=== PATIENT | female | born 1960 | race Caucasian/White ===

== ENCOUNTER 2016-06-22 09:15 | Inpatient (IN) | payer OTHER ==
[~2016-06-22] VITALS: Ht 172.7 cm; Wt 72.0 kg
[~2016-06-22 09:15] MED LIST: BSP/10 PO; FRRS300 PO; INSDGI SC; INSU1INJ2 SC; MULT-506 PO; NRV/5 PO; OXYC1TAB3 PO; PRZ/40 PO; RISP-99 PO; VTMB12 PO
[2016-06-22 10:01] LABS: BASO % 0.6 %; BASO ABS # 0.02 K/uL (0-0.2); COMPLETE YES; EOS % 2.4 %; HEMATOCRIT 37.1 % (37-47); IG% 0.3 %; LYMPH % 33.2 %; LYMPH ABS # 1.13 K/uL (1.2-3.4); MEAN CELL VOLUME 87.7 fL (80-100); MEAN CORPUSCULAR HEMOGLOBIN 28.6 pg (25-34); MEAN CORPUSCULAR HGB CONC 32.6 g/dl (32-36); MEAN PLATELET VOLUME 9.1 fL (7.4-10.4); MONO % 6.8 %; NEUT % 56.7 %; PLATELET COUNT 186 K/uL (130-400); RED BLOOD COUNT 4.23 M/uL (4.2-5.4)
[2016-06-22 10:27] LABS: ALT/SGPT 14 U/L (12-78); AST/SGOT 15 U/L (15-37); BLOOD UREA NITROGEN 16 mg/dl (7-18); BUN/CREATININE RATIO 18.1 (10-20); CALCIUM 8.5 mg/dl (8.5-10.1); CARBON DIOXIDE 27 mmol/L (21-32); CHLORIDE 110 mmol/L (98-107); CREATININE 0.86 mg/dl (0.60-1.20); GLUCOSE 89 mg/dl (70-99); SODIUM 143 mmol/L (136-145)
[2016-06-22] MEDS ORDERED: FLUO20CA35 PO (10:32)
[2016-06-22] MEDS ORDERED: INSDGIPEN SC (10:32)
[2016-06-22 10:38] LABS: ALKALINE PHOSPHATASE 61 U/L (45-117)
[2016-06-22 11:04] LABS: URINE APPEARANCE CLEAR (CLEAR); URINE BILIRUBIN NEG (NEG); URINE COLOR YELLOW; URINE EPITHELIAL CELL AUTO >30 /lpf (0-5); URINE NITRITE NEG (NEG); URINE PH 6.5 (4.5-7.5); URINE SPECIFIC GRAVITY 1.012 (1.000-1.030); UROBILINOGEN NEG (NEG)
[2016-06-22 11:05] LABS: MANUAL MICROSCOPIC REQUIRED? NO; REVIEW REQ? NO
[2016-06-22 11:38] LABS: BENZODIAZEPINE, URINE NEG (NEG); COCAINE,URINE NEG (NEG); PHENCYCLIDINE, URINE NEG (NEG)
[2016-06-22] MEDS ORDERED: ALUMINUM/MAGNESIUM SUSP 30 ML UDC PO PRN (15:30)
[2016-06-22] MEDS ORDERED: hydrOXYzine HCL 25 MG TAB PO PRN (15:30)
[2016-06-22] MEDS ORDERED: MAGNESIUM HYDROXIDE SUSP 30 ML UDC PO PRN (15:30)
[2016-06-22] MEDS ORDERED: SODIUM CHLORIDE 0.65% NA SOLN 45 ML (OCEAN) PRN (15:30)
[2016-06-22] MEDS ORDERED: BISMUTH SUBSALICYLATE PER ML OMNICELL CHARGE PO PRN (15:30)
[2016-06-22] MEDS ORDERED: FRRS300 PO (15:34)
[2016-06-22] MEDS ORDERED: RISPERIDONE 0.5 MG TAB PO STA (15:39)
[2016-06-22] MEDS ORDERED: BusPIRone 15 MG TAB PO STA (15:39)
--- NOTE | 2016-06-22 15:48 | EMERGENCY ROOM VISIT NOTE ---
History Report prepared by Lynnette: Melo Tamayo Under the Supervision of: Dr. Roni Jacob D.O. First contact with patient: 09:22 Chief Complaint: MENTAL HEALTH EVALUATION Stated Complaint: PSYCH History of Present Illness The patient is a 55 year old female who presents to the Emergency Room with complaints of worsening suicidal thoughts for the past few months. The patient has a psychiatric history and is on medication. She also has a history of diabetes. The patient states that sometimes she takes Insulin and sometimes she will take it when she doesn't need to. She states this isn't necessarily an attempt to kill herself. The patient also thinks she has an eating disorder noting that when she is alone she binge eats. Pt denies hallucinations, headache , change in vision, fevers, chest pain, shortness of breath, nausea, vomiting, diarrhea, pain with urination, and melena. Source of History: patient Onset: past few months Position: other (global) Timing: worsening Associated Symptoms: No SOB, No chest pain, No diarrhea, No fevers, No headache, No melena, No nausea, No urinary symptoms, No vomiting Note: Other associated symptoms: suicidal ideation Denies: hallucinations Review of Systems See HPI for pertinent positives & negatives. A total of 10 systems reviewed and were otherwise negative. Past Medical & Surgical Medical Problems: (1) Amputated toe (2) Anxiety (3) Chronic anemia (4) Depression (5) Diabetes mellitus type 2 (6) Diabetic peripheral neuropathy associated with type 2 diabetes mellitus (7) history of venous thrombus and embolism (8) Loss of sensation (9) s/p left TKA (10) s/p transmet amputation right foot (11) Status post partial amputation of foot (12) Suicidal ideation Surgical Problems: (1) Amputee, above knee (2) History of carpal tunnel release of both wrists (3) History of total knee arthroplasty (4) S/P revision of total knee Family History Cancer Diabetes mellitus Heart disease Hypertension Kidney disease Kidney stones Social History Smoking Status: Never Smoker Alcohol Use: none Drug Use: none Marital Status: Housing Status: lives with family Occupation Status: disabled Current/Historical Medications Scheduled Amlodipine Besylate (Amlodipine Besylate), 5 MG PO DAILY Buspirone HCl (Buspirone HCl), 10 MG PO TID Cyanocobalamin (Vitamin B-12), 500 MCG PO DAILY Ferrous Sulfate (Ferrous Sulfate), 325 MG PO BID Fluoxetine (Prozac), 60 MG PO DAILY Insulin Aspart (Novolog Penfill), UNITS SC AC Insulin Glargine (Lantus Solostar), 8 UNITS SC QPM Multivitamin (Multivitamin), 1 TAB PO DAILY Risperidone (Risperidone), 0.5 MG PO BID Allergies Coded Allergies: Ceftriaxone (Verified Allergy, Intermediate, HIVES, Rash, 06/22/16) Penicillins (Verified Allergy, Intermediate, body gets red, 06/22/16) Vancomycin (Verified Adverse Reaction, Mild, RED MAN SYNDROME, 06/22/16) Physical Exam Vital Signs Date Time Temp Pulse Resp B/P Pulse Ox O2 Delivery O2 Flow Rate FiO2 06/22/16 14:46 77 16 117/77 97 06/22/16 13:00 77 16 111/73 97 06/22/16 11:38 74 16 116/84 97 06/22/16 09:18 36.7 84 18 120/74 100 Room Air Physical Exam GENERAL: sitting up in bed, disheveled, no acute distress, non-toxic. EYE EXAM: normal conjunctiva, PERRL and EOM's grossly intact OROPHARYNX: no exudate, no erythema, lips, buccal mucosa, and tongue normal and mucous membranes are moist NECK: supple, no nuchal rigidity, no adenopathy, non-tender LUNGS: Clear to auscultation. Normal chest wall mechanics HEART: no murmurs, S1 normal and S2 normal ABDOMEN: abdomen soft, non-tender, normo-active bowel sounds, no masses, no rebound or guarding. BACK: Back is symmetrical on inspection and there is no deformity, no midline tenderness, no CVA tenderness. SKIN: no rashes and no bruising UPPER EXTREMITIES: upper extremities are grossly normal. LOWER EXTREMITIES: Left lower extremity AKA NEURO EXAM: Normal sensorium, cranial nerves II-XII grossly intact, normal speech, no gross weakness of arms, no gross weakness of legs. Gross sensation intact. PSYCH: suicidal ideation with a plan Medical Decision & Procedures Laboratory Results 06/22/16 09:45 Red Blood Count 4.23, Mean Corpuscular Volume 87.7, Mean Corpuscular Hemoglobin 28.6, Mean Corpuscular Hemoglobin Concent 32.6, Mean Platelet Volume 9.1, Neutrophils (%) (Auto) 56.7, Lymphocytes (%) (Auto) 33.2, Monocytes (%) (Auto) 6.8, Eosinophils (%) (Auto) 2.4, Basophils (%) (Auto) 0.6, Neutrophils # (Auto) 1.93, Lymphocytes # (Auto) 1.13, Monocytes # (Auto) 0.23, Eosinophils # (Auto) 0.08, Basophils # (Auto) 0.02 06/22/16 09:45 Test 06/22/16 09:45 06/22/16 10:40 06/22/16 13:04 White Blood Count 3.40 K/uL (4.8-10.8) Red Blood Count 4.23 M/uL (4.2-5.4) Hemoglobin 12.1 g/dL (12.0-16.0) Hematocrit 37.1 % (37-47) Mean Corpuscular Volume 87.7 fL (80-100) Mean Corpuscular Hemoglobin 28.6 pg (25-34) Mean Corpuscular Hemoglobin Concent 32.6 g/dl (32-36) Platelet Count 186 K/uL (130-400) Mean Platelet Volume 9.1 fL (7.4-10.4) Neutrophils (%) (Auto) 56.7 % Lymphocytes (%) (Auto) 33.2 % Monocytes (%) (Auto) 6.8 % Eosinophils (%) (Auto) 2.4 % Basophils (%) (Auto) 0.6 % Neutrophils # (Auto) 1.93 K/uL (1.4-6.5) Lymphocytes # (Auto) 1.13 K/uL (1.2-3.4) Monocytes # (Auto) 0.23 K/uL (0.11-0.59) Eosinophils # (Auto) 0.08 K/uL (0-0.5) Basophils # (Auto) 0.02 K/uL (0-0.2) RDW Standard Deviation 42.1 fL (36.4-46.3) RDW Coefficient of Variation 13.1 % (11.5-14.5) Immature Granulocyte % (Auto) 0.3 % Immature Granulocyte # (Auto) 0.01 K/uL (0.00-0.02) Anion Gap 6.0 mmol/L (3-11) Est Creatinine Clear Calc Drug Dose 75.4 ml/min Estimated GFR () 88.8 Estimated GFR (Non- 76.6 BUN/Creatinine Ratio 18.1 (10-20) Calcium Level 8.5 mg/dl (8.5-10.1) Total Bilirubin 0.3 mg/dl (0.2-1) Direct Bilirubin < 0.1 mg/dl (0-0.2) Aspartate Amino Transf (AST/SGOT) 15 U/L (15-37) Alanine Aminotransferase (ALT/SGPT) 14 U/L (12-78) Alkaline Phosphatase 61 U/L (45-117) Total Protein 7.3 gm/dl (6.4-8.2) Albumin 3.5 gm/dl (3.4-5.0) Thyroid Stimulating Hormone (TSH) 1.000 uIu/ml (0.300-4.500) Ethyl Alcohol mg/dL < 3.0 mg/dl (0-3) Urine Color YELLOW Urine Appearance CLEAR (CLEAR) Urine pH 6.5 (4.5-7.5) Urine Specific [place] 1.012 (1.000-1.030) Urine Protein NEG (NEG) Urine Glucose (UA) NEG (NEG) Urine Ketones NEG (NEG) Urine Occult Blood NEG (NEG) Urine Nitrite NEG (NEG) Urine Bilirubin NEG (NEG) Urine Urobilinogen NEG (NEG) Urine Leukocyte Esterase SMALL (NEG) Urine WBC (Auto) 5-10 /hpf (0-5) Urine RBC (Auto) 0-4 /hpf (0-4) Urine Hyaline Casts (Auto) 1-5 /lpf (0-5) Urine Epithelial Cells (Auto) >30 /lpf (0-5) Urine Bacteria (Auto) NEG (NEG) Urine Opiates Screen NEG (NEG) Urine Methadone, Qualitative NEG (NEG) Urine Barbiturates NEG (NEG) Urine Phencyclidine (PCP) Level NEG (NEG) Ur Amphetamine/Methamphetamine NEG (NEG) MDMA (Ecstasy) Screen NEG (NEG) Urine Benzodiazepines Screen NEG (NEG) Urine Cocaine Metabolite NEG (NEG) Urine Marijuana (THC) NEG (NEG) Bedside Glucose 152 mg/dl (70-90) Date/Time Source Procedure Growth Status 06/22/16 12:30 Nasal MRSA DNA Surveillance Screen - Final Specimen Negative for MRSA by DNA Probe Complete Laboratory results per my review. ED Course ED COURSE: Vital signs were reviewed and showed normal The patients medical record was reviewed The above diagnostic studies were performed and reviewed. ED treatments and interventions as stated above. 0918: The patient was evaluated in room A6. A complete history and physical examination was performed. 1054: At this time, I reevaluated the patient and she was feeling fine. 1210: At this time, I reevaluated the patient and she was still doing okay. 1425: Upon reevaluation, the patient is resting comfortably.I discussed my findings with the patient and she understands and agrees with the treatment plan. At this time, she was accepted for placement at [address] [place] [address]. Based on the patients age, coexisting illnesses, exam and lab findings the decision to treat as an inpatient was made. The patient remained stable while under my care. The patient will be evaluated for further management. Medical Decision Differential diagnosis: Etiologies such as mood disorder, infection, hypoglycemia, electrolyte abnormalities, cardiac sources, intracerebral event, toxicologic, neurologic, as well as others were entertained. Patient is a 55-year-old female who presents the ER with suicidal ideations and a plan. She notes this has been worsening for the past several weeks. Labs including CBC, BMP, LFTs, bilirubin and TSH are unremarkable. Toxicology And alcohol were negative. UA was contaminated with multiple epithelial cells. 3 S. was consulted following evaluation by our psychiatric liaison. Patient was admitted with suicidal ideations. Impression Primary Impression: Mood disorder Additional Impression: Suicidal ideation Scribe Attestation The scribe's documentation has been prepared under my direction and personally reviewed by me in its entirety. I confirm that the note above accurately reflects all work, treatment, procedures, and medical decision making performed by me. Departure Information Dispostion [facility] ([address] [place] [address]) Prescriptions Ferrous Sulfate (Ferrous Sulfate) 325 Mg Tab 325 MG PO BID for 30 Days, #60 TAB Prov: Zenobia Pack MD 06/22/16 Referrals No Doctor, Assigned (PCP) Problem Qualifiers
[2016-06-22 16:12] VITALS: O2SAT 98
[2016-06-22] MEDS ORDERED: PHARMACY GLYCEMIC MGMT CONSULT PRN (16:24)
[2016-06-22 16:56] VITALS: BP 137/76; PULSE 88; TEMP 36.7; BMI 24.1
[2016-06-22] MEDS: INSULIN ASPART 100 UNITS/ML 3 ML PEN SC SCH ×2 (17:15→21:27)
--- NOTE | 2016-06-22 17:22 | Pharmacy Progress Note ---
Glycemic Control Intl Consult Date of Service Jun 22, 2016. Scope Glycemic Pharmacist consulted by Dr Pack on 06/22/16 for glycemic control and to write orders per [facility] inpatient glycemic control protocol Objective Weight (Kilograms): 72.000 Accuchecks BSG (last 24hrs): Test 06/22/16 09:33 06/22/16 09:45 06/22/16 13:04 06/22/16 16:38 Bedside Glucose 86 mg/dl (70-90) 152 mg/dl (70-90) 90 mg/dl (70-90) Random Glucose 89 mg/dl (70-99) Recent Pertinent Medications Outpatient Anti-diabetic Regimen: * Lantus 8 units sQ HS * NovoLog per scale AC * A1c = 5.1 % 08/28/15 (outdated) Assessment & Plan ASSESSMENT: * 55yo diabetic maintained on SQ basal bolus insulin regimen as an outpatient. Outpatient doses are quite low/small therefore are presuming that patient has adequate insulin sensitivity * A1c in chart is outdated - will re-order per protocol * BSG below inpatient targets on admission to ED with current outpatient dosing. Will empirically adjust orders to help prevent hypoglycemia. * Outpatient SSI with NovoLog is correctional insulin only --> proactive approach bolus insulin with both prandial and correctional components is recommended for inpatient use * Pt with minimal risk factors for insulin resistance and uses low insulin doses for presumed "tight" glycemic control --> will use weight/minimal stress based dosing and add BSG parameters to basal insulin * ADA & AACE recommend a goal blood sugar range 140-180 mg/dl for the majority of critically ill & non-critically ill patients. However, more stringent targets may be selected in individual cases. Will utilize more stringent goal of 1110-40mg/dl based on patient age & comorbidities. PLAN FOR INPATIENT GLYCEMIC CONTROL: * Basal insulin with Lantus SQ HS, dosing will be based on BSG * If BSG 120mg/dl or below --> administer 5 units of Lantus (reduced outpatient dosing to prevent hypo) * If BSG 121mg/dl or above --> Administer 8 units of Lantus (outpatient dosing ) * NovoLog per scale ACHS or Q6hrs while NPO * Goal Range: Low 110 mg/dL - High 140 mg/dL * Correction Factor: 40 mg/dL/unit * Nutritional / Prandial insulin per carb ratio of 1 unit per 13 grams CHO consumed * Please note that the plan above was derived based on current level of insulin resistance and hospital stress. These recommendations are appropriate for inpatient admission only. Plan of care upon discharge will need to be reassessed to avoid potential outpatient hypo/hyperglycemia. Thank you.
[2016-06-22] MEDS: FERROUS SULFATE 325 MG TAB PO SCH (18:05)
[2016-06-22] MEDS ORDERED: RISPERIDONE 0.5 MG TAB PO SCH (21:00)
[2016-06-22] MEDS ORDERED: FERROUS SULFATE 325 MG TAB PO SCH (21:00)
[2016-06-22] MEDS: INSULIN GLARGINE SOLOSTAR 100 UNITS/ML 3 ML PEN SC SCH (21:27)
[2016-06-22] MEDS ORDERED: PNEUMOCOCCAL POLYSACCHARIDES 25 MCG/0.5 ML VIAL/SYR IM. ONE (21:30)
[2016-06-22] MEDS ORDERED: PNEUMOCOCCAL ADMINISTRATION CHARGE ONE (21:30)
[2016-06-22] MEDS: hydrOXYzine HCL 25 MG TAB PO PRN (23:33)
[2016-06-23 06:55] VITALS: BP_SYST 104; BP_SYST 112; BP_DIAS 69; PULSE 72; PULSE 80; TEMP 36.9
[2016-06-23] MEDS: MULTIVITAMIN TAB PO SCH (07:40)
[2016-06-23] MEDS: AMLODIPINE BESYLATE 5 MG TAB PO SCH (07:40)
[2016-06-23] MEDS: FERROUS SULFATE 325 MG TAB PO SCH ×2 (07:40→17:34)
[2016-06-23] MEDS: RISPERIDONE 0.5 MG TAB PO SCH ×2 (07:41→14:35)
[2016-06-23] MEDS: CYANOCOBALAMIN 500 MCG TAB (VIT B-12) PO SCH (07:41)
[2016-06-23] MEDS: INSULIN ASPART 100 UNITS/ML 3 ML PEN SC SCH ×4 (08:00→21:07)
[2016-06-23] MEDS ORDERED: FLUOXETINE HCL 20 MG CAP PO SCH (09:00)
[2016-06-23 10:19] LABS: ESTIMATED AVERAGE GLUCOSE 85 mg/dl; HA1C FLAG Normal (Normal)
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
[2016-06-23] MEDS ORDERED: DULOXETINE HCL 20 MG CAP PO ONE (13:21)
--- NOTE | 2016-06-23 14:24 | Pharmacy Progress Note ---
Glycemic Control: Progress Nt Date of Service Jun 23, 2016. Scope Glycemic Pharmacist consulted by Dr Pack on 06/22 for glycemic control and to write orders per [facility] inpatient glycemic control protocol. Objective Accuchecks BSG (last 24hrs): Test 06/22/16 16:38 06/22/16 20:54 06/23/16 07:37 06/23/16 12:12 Bedside Glucose 90 mg/dl (70-90) 78 mg/dl (70-90) 88 mg/dl (70-90) 91 mg/dl (70-90) Laboratory Data (last 24hrs) Test 06/23/16 08:17 Hemoglobin A1c 4.6 % HbA1c: Test 06/23/16 08:17 Hemoglobin A1c 4.6 % (4.5-5.6) Recent Pertinent Medications Outpatient Anti-diabetic Regimen: * Lantus 8 units qPM * Novolog with meals per scale The patient is currently receiving: * Basal insulin: Lantus 5-8 units every 24 hours - based on BSG * Correctional Insulin: Novolog Correction per scale ACHS Goal Range: Low 110 mg/dL - High 140 mg/dL Correction Factor: 40 mg/dL/unit * Prandial insulin: Per carb ratio of 1 unit per 13 grams CHO consumed Risk Factors for Insulin Resistance: * Diet: type 1 diabetes - consuming ~70 gm CHO with each meal Assessment & Plan ASSESSMENT: From 06/22/16 note: * 55yo diabetic maintained on SQ basal bolus insulin regimen as an outpatient. Outpatient doses are quite low/small therefore are presuming that patient has adequate insulin sensitivity * A1c in chart is outdated - will re-order per protocol * BSG below inpatient targets on admission to ED with current outpatient dosing. Will empirically adjust orders to help prevent hypoglycemia. * Outpatient SSI with NovoLog is correctional insulin only --> proactive approach bolus insulin with both prandial and correctional components is recommended for inpatient use * Pt with minimal risk factors for insulin resistance and uses low insulin doses for presumed "tight" glycemic control --> will use weight/minimal stress based dosing and add BSG parameters to basal insulin * ADA & AACE recommend a goal blood sugar range 140-180 mg/dl for the majority of critically ill & non-critically ill patients. However, more stringent targets may be selected in individual cases. Will utilize more stringent goal of 1110-40mg/dl based on patient age & comorbidities. 06/23/16 * Ms. Sepulveda BSGs have all remained below 100 mg/dL, with no lows * Will plan to make further adjustments to insulin regimen since BSGs have remained on the low side PLAN FOR INPATIENT GLYCEMIC CONTROL: * Decrease Lantus to 4 or 8 units qHS (depending on BSG) * Continue Novolog ACHS * Goal 110-140 * CF 40 * LOOSEN CR to 20 * Please note that the plan above was derived based on current level of insulin resistance and hospital stress. These recommendations are appropriate for inpatient admission only. Plan of care upon discharge will need to be reassessed to avoid potential outpatient hypo/hyperglycemia. Thank you.
[2016-06-23] MEDS: INSULIN GLARGINE SOLOSTAR 100 UNITS/ML 3 ML PEN SC SCH (21:10)
[2016-06-23] MEDS: hydrOXYzine HCL 25 MG TAB PO PRN ×2 (21:14→22:10)
[2016-06-24 06:57] VITALS: BP_SYST 106; BP_SYST 86; BP_DIAS 55; BP_DIAS 68; PULSE 77; PULSE 84; TEMP 36.6
[2016-06-24] MEDS: MULTIVITAMIN TAB PO SCH (07:37)
[2016-06-24] MEDS: CYANOCOBALAMIN 500 MCG TAB (VIT B-12) PO SCH (07:37)
[2016-06-24] MEDS: FERROUS SULFATE 325 MG TAB PO SCH ×2 (07:37→17:45)
[2016-06-24] MEDS: AMLODIPINE BESYLATE 5 MG TAB PO SCH (07:37)
[2016-06-24] MEDS: RISPERIDONE 0.5 MG TAB PO SCH ×2 (07:37→13:17)
[2016-06-24] MEDS ORDERED: DULOXETINE HCL 20 MG CAP PO SCH (09:00)
[2016-06-24] MEDS: INSULIN ASPART 100 UNITS/ML 3 ML PEN SC SCH ×4 (09:10→21:10)
--- NOTE | 2016-06-24 09:49 | Psychiatric Progress Notes ---
Progress Note Date of Service Jun 24, 2016. Interval History 55 yo female admitted with severe depression, anxiety and suicidality. Is an insulin dependent diabetic and has been abusing her insulin to keep sugars under control while binging. Chief Complaint "Good.". Subjective Patient was seen & assessed interval progress reviewed with Treatment Team. The patient says that she is beginning to adjust to the unit, "I'm starting to fit in.". She is hopeful that the new medicine will work, but found herself once again worrying at night about the 'what if's'. She acknowledges that she doesn't like herself very well and wants to work on this in therapy. She continues to worry about her blood sugars, despite the fact that they have been good. She is hopeful that getting her anxiety under better control will help her as well. She has decided to change psychiatrists (informed that we must refer her back to her existing provider) and has made an appt at [place] for August , but will return to [facility] in the interim. She reports disturbed sleep despite having taken to prn's of vistaril. She denies SI today. Is tolerating the start of cymbalta. Review of Systems Constitutional: No chills, No fatigue, No fever, No problem reported, No sweats , No weakness, No weight loss ENT: No dental problems, No hearing loss, No nasal symptoms, No problem reported, No sore throat, No tinnitus, No trouble swallowing, No unusual epistaxis Respiratory: No cough, No dyspnea at rest, No dyspnea on exertion, No hemoptysis, No problem reported, No shortness of breath, No sputum, No wheezing Cardiovascular: No PND, No chest pain, No claudication, No edema, No orthopnea , No palpitations, No problem reported Abdomen: No GI bleeding, No constipation, No diarrhea, No nausea, No pain, No problem reported, No vomiting Musculoskeletal: + problem reported (Lt AKA with prosthesis) Neurologic: No balance problems, No memory loss, No numbness/tingling, No paralysis, No problem reported, No vertigo, No weakness Psychiatric: + anxiety, + depression symptoms, + insomnia Integumentary: No bleeding, No color change, No itch, No new/changing skin lesions, No problem reported, No rash Sleep Information Total Hours of Sleep: 7.00 Meal Information Percent of Breakfast Consumed: 100 Percent of Lunch Consumed: 100 Percent of Dinner Consumed: 100 Mental Status Exam During interview pt is: alert and oriented, cooperative Appearance: appropriately dressed, appropriately groomed Eye contact is: good Motor behavior is: other (seated in a wheelchair which she uses to get around the unit. Rocks slowly back and forth in the wheelchair) Speech: normal in rate, rhythm & volume Affect: flat Mood is: depressed, anxious Thought process: goal directed, clear, coherent Thought content: reality based without delusions Suicidal thought are: present, Plan: present, Intent: denied Homicidal thoughts are: denied Hallucinations: denies auditory, denies visual Cognition: memory grossly intact, attention grossly intact Intelligence estimated to be: average Insight: impaired Judgement: impaired Medication Trials (1) past psych meds Lexapro- didn't work Last Edited By: Leah Benítez on Jun 24, 2016 09:45 Impression Adjusting to the unit, benefiting from the social interaction and support. Initiated Cymbalta yesterday, and will increase to 40 mg. onFriday. Will need to schedule a family meeting with her son, with whom she lives. Continued Inpatient Care Requires inpatient care due to the severity of her illness, and risk of self harm if discharged. Plan (1) Major depressive disorder, recurrent severe without psychotic features 06/23 - DC Prozac -Start Cymbalta 20 mg daily -Every 15 minute checks for safety -Encourage participation in group and individual counseling -Family meeting -Coordinate care with current providers and obtain outpatient records -Assist the patient to learn and utilize additional healthy coping strategies 06/24 - Continue cymbalta 20 mg. daily. Will increase to 40 mg. on 06/26 - Schedule family meeting with son (2) TINO (generalized anxiety disorder) (3) Diabetes mellitus type 2 06/23 -Continue regimen -BSG's ACHS - Consult director of casework services to assist the patient to look at food differently -Consult dietitian to help patient reframe use of food (4) Benign hypertension 06/23 - Continue home dose of amlodipine - Monitor BP view of the addition of a dual neurotransmitter medicine (5) Diabetic peripheral neuropathy associated with type 2 diabetes mellitus 06/23 -Consider switching BuSpar Neurontin which would also help peripheral neuropathic pain Has been reviewed with Dr. Zenobia Pack Discharge / Aftercare Planning Primary Care Physician: Name: Therapist: Name: Param CrossGriselda Jenkins Date of Appointment: Jul 01, 2016 Child Therapist: Name: None Visit Code E&M Code: 76192 Inventory Assets Strengths: Support of family, willingness to engage in treatment Needs: Increase healthy coping strategies Risk Factors Assessment : Yes /single/: Yes Higher / Fall in social status: No Health problems: Yes Mental Health Diagnoses: Yes Substance use disorders: No Previous attempt: Yes Smoker: No Protective Factors Assessment Druze beliefs: Yes : No Responsible for young children: No (helps with her 3 grandchildren) Employed: No Stable relationships: Yes Supportive family: Yes Good rapport with provider: Yes Data Vital Signs Last 24 Hrs: Date Time Temp Pulse Resp B/P Pulse Ox O2 Delivery O2 Flow Rate FiO2 06/24/16 06:57 36.6 77 16 106/68 84 86/55 Meds Administered Last 24 Hrs: Meds Administered (Past 24Hrs) Medications (Trade) Dose Ordered Sig/Edy Route Start Time Stop Time Status Last Admin Dose Admin Hydroxyzine HCl (Vistaril Tab) 50 mg HSZ PRN PO 06/22/16 15:30 07/22/16 15:29 06/23/16 22:10 50 MG Amlodipine Besylate (Norvasc Tab) 5 mg DAILY PO 06/23/16 09:00 07/23/16 08:59 06/24/16 07:37 5 MG Cyanocobalamin (Vitamin B-12 Tab) 500 mcg DAILY PO 06/23/16 09:00 07/23/16 08:59 06/24/16 07:37 500 MCG Fluoxetine HCl (Prozac Cap) 60 mg DAILY PO 06/23/16 09:00 06/23/16 13:24 DC 06/23/16 07:41 60 MG Insulin Glargine (Lantus Solostar Pen) SEE PROTCOL TEXT QPM SC 06/22/16 21:00 07/22/16 20:59 06/23/16 21:10 4 UNIT Multivitamins (Multivitamin Tab) 1 tab DAILY PO 06/23/16 09:00 07/23/16 08:59 06/24/16 07:37 1 TAB Insulin Aspart (novoLOG ASPART) SLIDING SCALE ACHS SC 06/22/16 17:15 07/22/16 17:14 06/24/16 09:10 3 UNITS Ferrous Sulfate (Feosol Tab) 325 mg BIDM PO 06/22/16 17:45 07/22/16 17:44 06/24/16 07:37 325 MG Risperidone (Risperdal Tab) 0.5 mg BID@0900,1400 PO 06/23/16 09:00 07/23/16 08:59 06/24/16 07:37 0.5 MG Buspirone HCl (Buspar Tab) 10 mg TID PO 06/22/16 22:00 07/22/16 21:59 06/24/16 07:37 10 MG Buspirone HCl (BusPAR TAB) 10 mg NOW STAT PO 06/22/16 15:39 06/22/16 15:41 DC 06/22/16 16:00 10 MG Risperidone (Risperdal Tab) 0.5 mg NOW STAT PO 06/22/16 15:39 06/22/16 15:41 DC 06/22/16 16:00 0.5 MG Pneumococcal Polysaccharide Vaccine (Pneumovax-23 Inj) 25 mcg ONCE ONCE IM. 06/22/16 21:30 06/22/16 21:31 DC 06/22/16 21:30 25 MCG Duloxetine HCl (Cymbalta Cap) 20 mg QAM PO 06/24/16 09:00 07/24/16 08:59 06/24/16 07:37 20 MG Duloxetine HCl (Cymbalta Cap) 20 mg 1321 ONCE PO 06/23/16 13:21 06/23/16 14:05 DC 06/23/16 14:35 20 MG Lab Results Last 24 Hrs: Last 24 Hours Test 06/23/16 12:12 06/23/16 16:56 06/23/16 20:29 06/24/16 07:31 Bedside Glucose 91 mg/dl 93 mg/dl 95 mg/dl 89 mg/dl Problem Qualifiers (1) Diabetes mellitus type 2: Diabetes mellitus complication status: with circulatory complication Diabetes mellitus intermediate frame tender insulin use: with senior care use
--- NOTE | 2016-06-24 11:11 | Pharmacy Progress Note ---
Glycemic Control: Progress Nt Date of Service Jun 24, 2016. Scope Glycemic Pharmacist consulted by Dr Pack on 06/22/2016 for glycemic control and to write orders per [facility] inpatient glycemic control protocol. Objective Accuchecks BSG (last 24hrs): Test 06/23/16 12:12 06/23/16 16:56 06/23/16 20:29 06/24/16 07:31 Bedside Glucose 91 mg/dl (70-90) 93 mg/dl (70-90) 95 mg/dl (70-90) 89 mg/dl (70-90) HbA1c: Test 06/23/16 08:17 Hemoglobin A1c 4.6 % (4.5-5.6) Recent Pertinent Medications Outpatient Anti-diabetic Regimen: * Lantus 8 units qPM and Novolog AC 0-12 units * A1c = 4.6 % 06/23/2016 The patient is currently receiving: * Basal insulin: Lantus 4-8 units every 24 hours in the evening ( Lantus 4 units if blood sugar 120 mg/dL or below and Lantus 8 units if blood sugar greater than 120 mg/dL) * Correctional Insulin: Novolog Correction per scale ACHS Goal Range: Low 110 mg/dL - High 140 mg/dL Correction Factor: 40 mg/dL/unit * Prandial insulin: Per carb ratio of 1 unit per 20 grams CHO consumed * Oral Agents: None Risk Factors for Insulin Resistance: * Diet: type 1 diabetic diet: consumed 100% of meals Assessment & Plan ASSESSMENT: * ADA & AACE recommend a goal blood sugar range 140-180 mg/dl for the majority of critically ill & non-critically ill patients. However, more stringent targets may be selected in individual cases. From 06/22/16 note: * 55yo diabetic maintained on SQ basal bolus insulin regimen as an outpatient. Outpatient doses are quite low/small therefore are presuming that patient has adequate insulin sensitivity * A1c in chart is outdated - will re-order per protocol * BSG below inpatient targets on admission to ED with current outpatient dosing. Will empirically adjust orders to help prevent hypoglycemia. * Outpatient SSI with NovoLog is correctional insulin only --> proactive approach bolus insulin with both prandial and correctional components is recommended for inpatient use * Pt with minimal risk factors for insulin resistance and uses low insulin doses for presumed "tight" glycemic control --> will use weight/minimal stress based dosing and add BSG parameters to basal insulin * ADA & AACE recommend a goal blood sugar range 140-180 mg/dl for the majority of critically ill & non-critically ill patients. However, more stringent targets may be selected in individual cases. Will utilize more stringent goal of 110-40mg/dl based on patient age & comorbidities. From 06/23/16 note: * Ms. Sepulveda BSGs have all remained below 100 mg/dL, with no lows * Will plan to make further adjustments to insulin regimen since BSGs have remained on the low side 06/24/2016 * Ms Sepulveda BSGs have all remained below 100 mg/dL with no apparent low blood sugars. All of her fasting blood sugars (86 mg/dL, 88 mg/dL, and 89 mg/dL) are very tightly controlled. I believe that it is reasonable to eliminate Lantus dosing for this patient to see how the patient responds with just Novolog coverage. * Per numerous sources, patient is a type 2 diabetic with a very low A1C of 4.6% . Changed diet to type 2 diet. PLAN FOR INPATIENT GLYCEMIC CONTROL: * STOP Lantus until fasting blood sugars are at least consistently above 110 mg/ dL * Continuing correction factor of 40 mg/dl/unit * Continuing carb ratio of 1 unit per 20 grams CHO consumed * Continuing goal range Low 110 mg/dL - High 140 mg/dL RECOMMENDATIONS FOR DISCHARGE: * Due to the patient's strict A1C control and the possibility of insulin abuse, it may be reasonable to discharge the patient home on an oral agent to control her diabetes. More discharge recommendations to follow once blood sugars are obtained without Lantus coverage. Thank you.
[2016-06-24] MEDS: ACETAMINOPHEN 325 MG TAB PO PRN (13:16)
[2016-06-24] MEDS: hydrOXYzine HCL 25 MG TAB PO PRN ×2 (21:11→21:55)
[2016-06-25 06:42] VITALS: BP_SYST 110; BP_SYST 111; BP_DIAS 72; BP_DIAS 75; PULSE 73; PULSE 86; TEMP 36.6
[2016-06-25] MEDS: INSULIN ASPART 100 UNITS/ML 3 ML PEN SC SCH ×4 (08:00→20:46)
[2016-06-25] MEDS: RISPERIDONE 0.5 MG TAB PO SCH ×2 (08:06→14:00)
[2016-06-25] MEDS: FERROUS SULFATE 325 MG TAB PO SCH ×2 (08:06→17:34)
[2016-06-25] MEDS: AMLODIPINE BESYLATE 5 MG TAB PO SCH (08:06)
[2016-06-25] MEDS: CYANOCOBALAMIN 500 MCG TAB (VIT B-12) PO SCH (08:06)
[2016-06-25] MEDS: MULTIVITAMIN TAB PO SCH (08:06)
[2016-06-25] MEDS: DULOXETINE HCL 20 MG CAP PO SCH (08:07)
--- NOTE | 2016-06-25 08:46 | Psychiatric Progress Notes ---
Progress Note Date of Service Jun 25, 2016. Interval History 55 yo female admitted with severe depression, anxiety and suicidality. Is an insulin dependent diabetic and has been abusing her insulin to keep sugars under control while binging. Chief Complaint "A little bit better". Subjective Patient was seen & assessed interval progress reviewed with nursing. Staff report she is anxious and fixated on not getting enough insulin, despite reassurance from staff that the diabetic pharmacist is monitoring her closely and adjusting her medications. She has a family meeting with her son and his . They expressed concern that she does not take responsibility for making better choices in her life and is helpless and takes the role of a victim. Patient became tearful in processing this, saying she knows she does this and is unsure why she acts like this. Much of the meeting involved her daughter in law telling pt she is frustrated with her for not being invested in her care, for being superficial and for telling professionals what they want to hear, instead of actually dealing with her issues. Both said they feel that patient has been sneaky and that they can't trust her to make good decisions. They agreed to lock her insulin and medications and dispense them daily. They will also lock away extra food. Patient agreed to increase her [facility] psych rehab participation from 3 days per week to 5 days per week. Pt signed CHARLIE for [facility] for case management and also for [facility] medication visits. Patient's LOS was discussed and family said they think she should be in the hospital a great deal longer. After the meeting patient was tearful, said her family should just put her away in a mcc so they don't have to deal with her. Today the patient was seen with Bo Escobar, MS3. She states the meeting yesterday was hard for her, as she knows these are things she needs to work on, but she feels supported by her family and agrees with the interventions discussed. She thinks the duloxetine is helping, as mood is "a little bit better " and she feels more hopeful. She thinks it is helping to "be around people who understand your problems," and is going to groups. She has been sleeping better with hydroxyzine, 6-7 hours a night the past two nights, but wants to try sleeping without it tonight. Appetite is improving, but gets anxious about how much insulin she needs, requiring frequent reassurance from staff, as worries she won't get enough insulin. She says she is "realizing how bad it really was" with respect her binge eating and misuse of her medication, after talking about it with her family yesterday. She denies SI, but says she is "not ready yet" for discharge, saying she still feels she needs to work on her self esteem, "so I can be in a better place." Sleep Information Total Hours of Sleep: 7.00 Meal Information Percent of Breakfast Consumed: 100 Percent of Lunch Consumed: 100 Percent of Dinner Consumed: 100 Mental Status Exam During interview pt is: alert and oriented, cooperative Appearance: appropriately dressed, appropriately groomed Eye contact is: good Motor behavior is: other (seated in a wheelchair which she uses to get around the unit. ) Speech: normal in rate, rhythm & volume Affect: euthymic (reactive, approriate) Mood is: other (improved, but "still not great") Thought process: goal directed, clear, coherent Thought content: reality based without delusions Suicidal thought are: denied Homicidal thoughts are: denied Hallucinations: denies auditory, denies visual Cognition: memory grossly intact, attention grossly intact Intelligence estimated to be: average Insight: impaired Judgement: impaired Medication Trials (1) past psych meds Lexapro- didn't work Last Edited By: Leah Benítez on Jun 24, 2016 09:45 Impression Adjusting to the unit, benefiting from the social interaction and support. Initiated Cymbalta yesterday, and will increase to 40 mg. onFriday. Will need to schedule a family meeting with her son, with whom she lives. Continued Inpatient Care Requires inpatient care due to the severity of her illness, and risk of self harm if discharged. Plan (1) Major depressive disorder, recurrent severe without psychotic features 06/23 - DC Prozac - Start Cymbalta 20 mg daily - Every 15 minute checks for safety - Encourage participation in group and individual counseling - Family meeting - Coordinate care with current providers and obtain outpatient records - Assist the patient to learn and utilize additional healthy coping strategies 06/24 - Continue cymbalta 20 mg. daily. Will increase to 40 mg. on 06/26. - Schedule family meeting with son and daughter in law. 06/25 - Cymbalta to increase to 40mg daily tomorrow. - Continue to work on health coping skills. (2) TINO (generalized anxiety disorder) (3) Diabetes mellitus type 2 06/23 -Continue regimen -BSG's ACHS - Consult stator winder to assist the patient to look at food differently -Consult dietitian to help patient reframe use of food (4) Benign hypertension 06/23 - Continue home dose of amlodipine - Monitor BP view of the addition of a dual neurotransmitter medicine (5) Diabetic peripheral neuropathy associated with type 2 diabetes mellitus 06/23 -Consider switching BuSpar Neurontin which would also help peripheral neuropathic pain Has been reviewed with Dr. Zenobia Pack Discharge / Aftercare Planning Primary Care Physician: Name: Therapist: Name: Param Jenkins Date of Appointment: Jul 01, 2016 Distance Education Faculty Liaison: Name: None Visit Code E&M Code: 07246 Inventory Assets Strengths: Support of family, willingness to engage in treatment Needs: Increase healthy coping strategies Risk Factors Assessment : Yes /single/: Yes Higher / Fall in social status: No Health problems: Yes Mental Health Diagnoses: Yes Substance use disorders: No Previous attempt: Yes Smoker: No Protective Factors Assessment Restoration beliefs: Yes : No Responsible for young children: No (helps with her 3 grandchildren) Employed: No Stable relationships: Yes Supportive family: Yes Good rapport with provider: Yes Data Vital Signs Last 24 Hrs: Date Time Temp Pulse Resp B/P Pulse Ox O2 Delivery O2 Flow Rate FiO2 06/25/16 06:42 36.6 73 16 111/72 86 110/75 Meds Administered Last 24 Hrs: Meds Administered (Past 24Hrs) Medications (Trade) Dose Ordered Sig/Edy Route Start Time Stop Time Status Last Admin Dose Admin Amlodipine Besylate (Norvasc Tab) 5 mg DAILY PO 06/23/16 09:00 07/23/16 08:59 06/25/16 08:06 5 MG Cyanocobalamin (Vitamin B-12 Tab) 500 mcg DAILY PO 06/23/16 09:00 07/23/16 08:59 06/25/16 08:06 500 MCG Fluoxetine HCl (Prozac Cap) 60 mg DAILY PO 06/23/16 09:00 06/23/16 13:24 DC 06/23/16 07:41 60 MG Multivitamins (Multivitamin Tab) 1 tab DAILY PO 06/23/16 09:00 07/23/16 08:59 06/25/16 08:06 1 TAB Risperidone (Risperdal Tab) 0.5 mg BID@0900,1400 PO 06/23/16 09:00 07/23/16 08:59 06/25/16 08:06 0.5 MG Duloxetine HCl (Cymbalta Cap) 20 mg QAM PO 06/24/16 09:00 06/24/16 10:49 DC 06/24/16 07:37 20 MG Duloxetine HCl (Cymbalta Cap) 20 mg 1321 ONCE PO 06/23/16 13:21 06/24/16 09:52 DC 06/23/16 14:35 20 MG Duloxetine HCl (Cymbalta Cap) 20 mg Taper QAM PO 06/25/16 09:00 07/26/16 08:59 06/25/16 08:07 20 MG Lab Results Last 24 Hrs: Last 24 Hours Test 06/24/16 12:38 06/24/16 15:49 Bedside Glucose 98 mg/dl 113 mg/dl Problem Qualifiers (1) Diabetes mellitus type 2: Diabetes mellitus complication status: with circulatory complication Diabetes mellitus chcf insulin use: with travel physical therapist use
--- NOTE | 2016-06-25 13:48 | Pharmacy Progress Note ---
Glycemic: Assessment & Plan Date of Service Jun 25, 2016. Assessment & Plan The patient is currently receiving 8 units of insulin per day. BSGs ranging 88 - 113 mg/dl over the past 24hrs. * Basal insulin: ON HOLD * Correctional Insulin: Novolog Correction per scale ACHS Goal Range: Low 110 mg/dL - High 140 mg/dL Correction Factor: 40 mg/dL/unit * Prandial insulin: Per carb ratio of 1 unit per 20 grams CHO consumed ASSESSMENT: * BSGs remain below goal without basal insulin * Will plan to further loosen CR (I wonder if patient needs this at all?) PLAN: * D/C Lantus * Continue Novolog ACHS * Goal 110-140 * CF 40 * LOOSEN CR to 30 Pharmacy will continue to monitor patient daily and write orders per [facility] inpatient glycemic control protocol. Thanks. RECOMMENDATIONS FOR DISCHARGE: * Depending on what the patient requires with the changes made today (06/25), she may not need insulin at all as an outpatient - will continue to follow and provide more concrete recommendations closer to discharge
[2016-06-25] MEDS: hydrOXYzine HCL 25 MG TAB PO PRN (21:01)
[2016-06-26 06:41] VITALS: BP_SYST 109; BP_SYST 119; BP_DIAS 76; PULSE 76; PULSE 86; TEMP 36.6
[2016-06-26] MEDS: DULOXETINE HCL 20 MG CAP PO SCH (07:31)
[2016-06-26] MEDS: AMLODIPINE BESYLATE 5 MG TAB PO SCH (07:31)
[2016-06-26] MEDS: FERROUS SULFATE 325 MG TAB PO SCH ×2 (07:31→17:24)
[2016-06-26] MEDS: CYANOCOBALAMIN 500 MCG TAB (VIT B-12) PO SCH (07:31)
[2016-06-26] MEDS: MULTIVITAMIN TAB PO SCH (07:32)
[2016-06-26] MEDS: RISPERIDONE 0.5 MG TAB PO SCH ×2 (07:32→13:27)
[2016-06-26] MEDS: INSULIN ASPART 100 UNITS/ML 3 ML PEN SC SCH ×5 (08:00→20:42)
[2016-06-26] MEDS: ACETAMINOPHEN 325 MG TAB PO PRN (09:15)
--- NOTE | 2016-06-26 10:28 | Pharmacy Progress Note ---
Glycemic Control: Progress Nt Date of Service Jun 26, 2016. Scope Glycemic Pharmacist consulted by Dr Pack on 06/22/16 for glycemic control and to write orders per [facility] inpatient glycemic control protocol. Objective Accuchecks BSG (last 24hrs): Test 06/25/16 12:08 06/25/16 17:11 06/25/16 20:37 06/26/16 07:13 Bedside Glucose 99 mg/dl (70-90) 93 mg/dl (70-90) 106 mg/dl (70-90) 93 mg/dl (70-90) HbA1c: Test 06/23/16 08:17 Hemoglobin A1c 4.6 % (4.5-5.6) Recent Pertinent Medications Outpatient Anti-diabetic Regimen: * Lantus 8 units Q PM * Novolog 0-12 units with meals * A1c = 4.6 % 06/23/16 The patient is currently receiving: * Basal insulin: Lantus -- units every -- hours * Correctional Insulin: Novolog Correction per scale ACHS Goal Range: Low 110 mg/dL - High 140 mg/dL Correction Factor: 40 mg/dL/unit * Prandial insulin: Per carb ratio of 1 unit per 30 grams CHO consumed * Oral Agents: None currently Risk Factors for Insulin Resistance: * Steroids: n/a * Infection: n/a * Pressors: n/a * IVF: n/a * Recent Surgery: n/a * Diet: ordered T2DM diet and tolerating well * Mechanical Ventilation: n/a Assessment & Plan ASSESSMENT: 06/26/16 * BSGs have ranged 93-106 over the last 24 hours * She has only required 4 units of SQ rapid acting insulin over this same time period * No changes required to the existing regimen PLAN FOR INPATIENT GLYCEMIC CONTROL: * No basal insulin required * Continuing correction factor 40 mg/dl/unit * Continuing carb ratio 1 unit per 30 grams CHO consumed * Continuing goal range Low 110 mg/dL - High 140 mg/dL RECOMMENDATIONS FOR DISCHARGE: * Outpatient regimen likely needs adjusted given low A1c result and low insulin requirements while hospitalized. Would anticipate her to need less than what her outpt regimen provides as she is only requiring total daily doses of 4-9 units per day total. * Please note that the plan above was derived based on current level of insulin resistance and hospital stress. These recommendations are appropriate for inpatient admission only. Plan of care upon discharge will need to be reassessed to avoid potential outpatient hypo/hyperglycemia. Thank you.
--- NOTE | 2016-06-26 10:56 | Psychiatric Progress Notes ---
Progress Note Date of Service Jun 26, 2016. Interval History 55 yo female admitted with severe depression, anxiety and suicidality. Is an insulin dependent diabetic and has been abusing her insulin to keep sugars under control while binging. Chief Complaint "my diet is on track, I'm feeling more confident". Subjective Patient was seen & assessed interval progress reviewed with Treatment Team. She has been benefiting from groups and meeting with the certified adapted physical educator. Sugars good without hs lantus. She is aware of family plan to lock the kitchen door as well as her insulin for safety on return home. She plans to attend [employer] programming 5 days a week to provide structure. She notes feeling less "foggy" since Cymbalta increased. Vistaril prn effective for sleep. Review of Systems Psych: denies symptoms other than stated above Constitutional: denied Cardiovascular: denied GI: denied Neurologic: diabetic neuropathy. Remainder of 10 body systems also reviewed and denied other than noted above. Sleep Information Total Hours of Sleep: 6.50 Meal Information Percent of Breakfast Consumed: 100 Percent of Lunch Consumed: 100 Percent of Dinner Consumed: 100 Mental Status Exam During interview pt is: alert and oriented, cooperative Appearance: appropriately dressed, appropriately groomed Eye contact is: good Motor behavior is: other (seated in a wheelchair which she uses to get around the unit. ) Speech: normal in rate, rhythm & volume Affect: euthymic (reactive, approriate) Mood is: depressed Thought process: goal directed, clear, coherent Thought content: reality based without delusions Suicidal thought are: denied Homicidal thoughts are: denied Hallucinations: denies auditory, denies visual Cognition: memory grossly intact, attention grossly intact Intelligence estimated to be: average Insight: limited Judgement: limited Medication Trials (1) past psych meds Lexapro- didn't work Last Edited By: Leah Benítez on Jun 24, 2016 09:45 Impression Adjusting to the unit, benefiting from the social interaction and support. Initiated Cymbalta 06/24, and will increased to 40 mg 06/26. Continued Inpatient Care Requires inpatient care due to the severity of her illness, and risk of self harm if discharged. Plan (1) Major depressive disorder, recurrent severe without psychotic features 06/23 - DC Prozac - Start Cymbalta 20 mg daily - Every 15 minute checks for safety - Encourage participation in group and individual counseling - Family meeting - Coordinate care with current providers and obtain outpatient records - Assist the patient to learn and utilize additional healthy coping strategies 06/24 - Continue cymbalta 20 mg. daily. Will increase to 40 mg. on 06/26. - Schedule family meeting with son and daughter in law. 06/25 - Cymbalta to increase to 40mg daily tomorrow. - Continue to work on health coping skills. (2) TINO (generalized anxiety disorder) (3) Diabetes mellitus type 2 06/23 -Continue regimen -[facility]'s ACHS - Consult chemical educator to assist the patient to look at food differently -Consult dietitian to help patient reframe use of food (4) Benign hypertension 06/23 - Continue home dose of amlodipine - Monitor BP view of the addition of a dual neurotransmitter medicine (5) Diabetic peripheral neuropathy associated with type 2 diabetes mellitus 06/23 -Consider switching BuSpar Neurontin which would also help peripheral neuropathic pain Has been reviewed with Dr. Zenobia Pack Discharge / Aftercare Planning Primary Care Physician: Name: Dr Springer Date of Appointment: Oct 28, 2016 Time of Appointment: 9:00am Psychiatrist: Name: [facility]-Dr Thomas Date of Appointment: July 20, 2016 Time of Appointment: 9:00am Therapist: Name: Parag Cross Date of Appointment: Jul 01, 2016 Time of Appointment: 9:45am Manager [place]: Name: BALTAZAR Ennis Appointment Notes: Zonia will call you at home Visit Code E&M Code: 28678 Inventory Assets Strengths: Support of family, willingness to engage in treatment Needs: Increase healthy coping strategies Risk Factors Assessment : Yes /single/: Yes Higher / Fall in social status: No Health problems: Yes Mental Health Diagnoses: Yes Substance use disorders: No Previous attempt: Yes Smoker: No Protective Factors Assessment Samaritan beliefs: Yes : No Responsible for young children: No (helps with her 3 grandchildren) Employed: No Stable relationships: Yes Supportive family: Yes Good rapport with provider: Yes Data Vital Signs Last 24 Hrs: Date Time Temp Pulse Resp B/P Pulse Ox O2 Delivery O2 Flow Rate FiO2 06/26/16 06:41 36.6 76 16 119/76 86 109/76 Meds Administered Last 24 Hrs: Meds Administered (Past 24Hrs) Medications (Trade) Dose Ordered Sig/Edy Route Start Time Stop Time Status Last Admin Dose Admin Duloxetine HCl (Cymbalta Cap) 40 mg Taper QAM PO 06/25/16 09:00 07/26/16 08:59 06/26/16 07:31 40 MG Lab Results Last 24 Hrs: Last 24 Hours Test 06/25/16 12:08 06/25/16 17:11 06/25/16 20:37 06/26/16 07:13 Bedside Glucose 99 mg/dl 93 mg/dl 106 mg/dl 93 mg/dl Problem Qualifiers (1) Diabetes mellitus type 2: Diabetes mellitus complication status: with circulatory complication Diabetes mellitus fpc insulin use: with fpc use
[2016-06-26 14:25] VITALS: Ht 172.7 cm; Wt 72.0 kg
[2016-06-26] MEDS: hydrOXYzine HCL 25 MG TAB PO PRN ×2 (21:01→21:53)
[2016-06-27 07:02] VITALS: BP_SYST 111; BP_SYST 97; BP_DIAS 64; BP_DIAS 71; PULSE 79; PULSE 80; TEMP 36.6
[2016-06-27] MEDS: FERROUS SULFATE 325 MG TAB PO SCH ×2 (07:21→17:46)
[2016-06-27] MEDS: DULOXETINE HCL 20 MG CAP PO SCH (07:21)
[2016-06-27] MEDS: MULTIVITAMIN TAB PO SCH (07:21)
[2016-06-27] MEDS: CYANOCOBALAMIN 500 MCG TAB (VIT B-12) PO SCH (07:24)
[2016-06-27] MEDS: AMLODIPINE BESYLATE 5 MG TAB PO SCH (07:24)
[2016-06-27] MEDS: RISPERIDONE 0.5 MG TAB PO SCH ×2 (07:24→14:09)
[2016-06-27] MEDS: INSULIN ASPART 100 UNITS/ML 3 ML PEN SC SCH ×4 (08:00→22:00)
--- NOTE | 2016-06-27 09:57 | Psychiatric Progress Notes ---
Progress Note Date of Service Jun 27, 2016. Interval History 55 yo female admitted with severe depression, anxiety and suicidality. Is an insulin dependent diabetic and has been abusing her insulin to keep sugars under control while binging. Chief Complaint "I'm just worried about going back to the same situation". Subjective Patient was seen & assessed interval progress reviewed with Treatment Team. Per staff, patient has been cooperative on the unit. Mood rated 6 out of 10 yesterday. Feels that she is making progress. This morning she states "Cymbalta is really working." She describes improvement in mood, feeling more clear minded, and also experiencing less neuropathic pain on increased dose which she is tolerating well. Reviewed her concerns about returning to home environment and interventions. She does plan to increase participation in CSG, hopes to be visited by Robbin portillo once weekly at home, family considering locking kitchen to reduce binge eating, and she is working on communication tools to express herself. She denies suicidal ideation this morning and rates mood 7 out of 10 today. She does express anxiety about discharge and fear for quick decompensation. Review of Systems Denies medication side effects or acute physiologic concerns this morning Sleep Information Total Hours of Sleep: 7.50 Meal Information Percent of Breakfast Consumed: 100 Percent of Lunch Consumed: 100 Percent of Dinner Consumed: 100 Mental Status Exam During interview pt is: alert and oriented, cooperative Appearance: appropriately dressed, appropriately groomed Eye contact is: good Motor behavior is: other (seated in a wheelchair which she uses to get around the unit. ) Speech: normal in rate, rhythm & volume Affect: euthymic (reactive, approriate) Mood is: other ("definitely better") Thought process: goal directed, clear, coherent Thought content: reality based without delusions Suicidal thought are: denied Homicidal thoughts are: denied Hallucinations: denies auditory, denies visual Cognition: memory grossly intact, attention grossly intact Intelligence estimated to be: average Insight: limited Judgement: limited Medication Trials (1) past psych meds Lexapro- didn't work Last Edited By: Leah Benítez on Jun 24, 2016 09:45 Impression Adjusting to the unit, benefiting from the social interaction and support. Initiated Cymbalta 06/24, and will increased to 40 mg 06/26. Continued Inpatient Care Requires inpatient care due to the severity of her illness, and risk of self harm if discharged. Plan (1) Major depressive disorder, recurrent severe without psychotic features 06/23 - DC Prozac - Start Cymbalta 20 mg daily - Every 15 minute checks for safety - Encourage participation in group and individual counseling - Family meeting - Coordinate care with current providers and obtain outpatient records - Assist the patient to learn and utilize additional healthy coping strategies 06/24 - Continue cymbalta 20 mg. daily. Will increase to 40 mg. on 06/26. - Schedule family meeting with son and daughter in law. 06/25 - Cymbalta to increase to 40mg daily tomorrow. - Continue to work on health coping skills. 06/27 - Tolerating Cymbalta and reporting benefit in mood and pain - Discussed environmental and behavioral interventions as above (2) TINO (generalized anxiety disorder) (3) Diabetes mellitus type 2 06/23 -Continue regimen -[facility] [place] ACHS - Consult inclusion special educator to assist the patient to look at food differently -Consult dietitian to help patient reframe use of food (4) Benign hypertension 06/23 - Continue home dose of amlodipine - Monitor BP view of the addition of a dual neurotransmitter medicine (5) Diabetic peripheral neuropathy associated with type 2 diabetes mellitus 06/23 -Consider switching BuSpar Neurontin which would also help peripheral neuropathic pain Has been reviewed with Dr. Zenobia Pack Discharge / Aftercare Planning Primary Care Physician: Name: Dr Springer Date of Appointment: Oct 28, 2016 Time of Appointment: 9:00am Psychiatrist: Name: [facility]-Dr Thomas Date of Appointment: July 20, 2016 Time of Appointment: 9:00am Therapist: Name: Parag Cross Date of Appointment: Jul 01, 2016 Time of Appointment: 9:45am Case Management Social Worker: Name: BALTAZAR Intake-Zonia Appointment Notes: Zonia will call you at home Partial or Psych Rehab: Name: [facility] Psych Rehad Visit Code E&M Code: 76141 Inventory Assets Strengths: Support of family, willingness to engage in treatment Needs: Increase healthy coping strategies Risk Factors Assessment : Yes /single/: Yes Higher / Fall in social status: No Health problems: Yes Mental Health Diagnoses: Yes Substance use disorders: No Previous attempt: Yes Smoker: No Protective Factors Assessment Mandaeism beliefs: Yes : No Responsible for young children: No (helps with her 3 grandchildren) Employed: No Stable relationships: Yes Supportive family: Yes Good rapport with provider: Yes Data Vital Signs Last 24 Hrs: Date Time Temp Pulse Resp B/P Pulse Ox O2 Delivery O2 Flow Rate FiO2 06/27/16 07:02 36.6 79 16 111/71 80 97/64 Lab Results Last 24 Hrs: Last 24 Hours Test 06/26/16 12:04 06/26/16 17:13 06/26/16 20:39 06/27/16 07:16 Bedside Glucose 93 mg/dl 85 mg/dl 95 mg/dl 88 mg/dl Problem Qualifiers (1) Diabetes mellitus type 2: Diabetes mellitus complication status: with circulatory complication Diabetes mellitus middle or intermediate school principal insulin use: with prison use
--- NOTE | 2016-06-27 12:55 | Pharmacy Progress Note ---
Glycemic: Assessment & Plan Date of Service Jun 27, 2016. Assessment & Plan Recent Pertinent Medications Outpatient Anti-diabetic Regimen: * Lantus 8 units Q PM * NovoLog 0-12 units with meals * A1c = 4.6 % 06/23/16 The patient is currently receiving: * Basal insulin: NONE AT THIS TIME * Correctional Insulin: NovoLog Correction per scale ACHS Goal Range: Low 110 mg/dL - High 140 mg/dL Correction Factor: 40 mg/dL/unit * Prandial insulin: Per carb ratio of 1 unit per 30 grams CHO consumed Risk Factors for Insulin Resistance: * Steroids: n/a * Infection: n/a * Pressors: n/a * IVF: n/a * Recent Surgery: n/a * Diet: ordered T2DM diet and tolerating well * Mechanical Ventilation: n/a Assessment & Plan ASSESSMENT: 06/26/16 * BSGs have ranged 93-106 over the last 24 hours * She has only required 4 units of SQ rapid acting insulin over this same time period * No changes required to the existing regimen 06/27/16 * BSGs continue at or below goal range with minimal insulin requirements (3 units over the past 24 hours) * remove CHO coverage at this time and monitor BSGS - may be able to decrease Accu-checks to BID if patient remains euglycemic PLAN FOR INPATIENT GLYCEMIC CONTROL: * No basal insulin required * Continue NovoLog AC and HS * Continuing correction factor 40 mg/dl/unit * Remove CHO coverage * Continuing goal range Low 110 mg/dL - High 140 mg/dL RECOMMENDATIONS FOR DISCHARGE: * Outpatient regimen likely needs adjusted given low A1c result and low insulin requirements while hospitalized. Would anticipate her to need less than what her outpt regimen provides as she is only requiring total daily doses of 3-9 units per day total. * Please note that the plan above was derived based on current level of insulin resistance and hospital stress. These recommendations are appropriate for inpatient admission only. Plan of care upon discharge will need to be reassessed to avoid potential outpatient hypo/hyperglycemia.
[2016-06-27] MEDS: hydrOXYzine HCL 25 MG TAB PO PRN (21:10)
[2016-06-28 06:52] VITALS: BP_SYST 90; BP_SYST 98; BP_DIAS 58; BP_DIAS 65; PULSE 75; PULSE 81; TEMP 36.6
[2016-06-28] MEDS: DULOXETINE HCL 20 MG CAP PO SCH (07:38)
[2016-06-28] MEDS: MULTIVITAMIN TAB PO SCH (07:39)
[2016-06-28] MEDS: FERROUS SULFATE 325 MG TAB PO SCH ×2 (07:39→17:29)
[2016-06-28] MEDS: RISPERIDONE 0.5 MG TAB PO SCH ×2 (07:39→14:00)
[2016-06-28] MEDS: AMLODIPINE BESYLATE 5 MG TAB PO SCH ×2 (07:39→08:33)
[2016-06-28] MEDS: CYANOCOBALAMIN 500 MCG TAB (VIT B-12) PO SCH (07:40)
[2016-06-28] MEDS: INSULIN ASPART 100 UNITS/ML 3 ML PEN SC SCH ×2 (07:50→17:06)
[2016-06-28 08:31] VITALS: BP 101/66; PULSE 76
--- NOTE | 2016-06-28 15:02 | Psychiatric Progress Notes ---
Progress Note Date of Service Jun 28, 2016. Interval History 55 yo female admitted with severe depression, anxiety and suicidality. Is an insulin dependent diabetic and has been abusing her insulin to keep sugars under control while binging. Chief Complaint "I'm picking and I think it's because I'm worried about leaving". Subjective Patient was seen & assessed interval progress reviewed with Treatment Team. Patient continues to do well on the unit per staff. No acute events overnight. Compliant with medications and participating in unit programming. Patient voices anxiety about pending discharge. She has been scratching at her arms which she believes is driven by this anxiety. Otherwise she is feeling well and continues to feel more hopeful. Review of Systems Denies itching. Reports skin picking. Sleep Information Total Hours of Sleep: 8.50 Meal Information Percent of Breakfast Consumed: 100 Percent of Lunch Consumed: 100 Percent of Dinner Consumed: 100 Mental Status Exam During interview pt is: alert and oriented, cooperative Appearance: appropriately dressed, appropriately groomed Eye contact is: good Motor behavior is: other (seated in a wheelchair which she uses to get around the unit. Scratching at upper extremities) Speech: normal in rate, rhythm & volume Affect: mood congruent Mood is: anxious Thought process: goal directed, clear, coherent Thought content: reality based without delusions Suicidal thought are: denied Homicidal thoughts are: denied Hallucinations: denies auditory, denies visual Cognition: memory grossly intact, attention grossly intact Intelligence estimated to be: average Insight: limited Judgement: limited Medication Trials (1) past psych meds Lexapro- didn't work Last Edited By: Leah Benítez on Jun 24, 2016 09:45 Impression Adjusting to the unit, benefiting from the social interaction and support. Initiated Cymbalta 06/24, and will increased to 40 mg 06/26. Continued Inpatient Care Requires inpatient care due to the severity of her illness, and risk of self harm if discharged. Plan (1) Major depressive disorder, recurrent severe without psychotic features 06/23 - DC Prozac - Start Cymbalta 20 mg daily - Every 15 minute checks for safety - Encourage participation in group and individual counseling - Family meeting - Coordinate care with current providers and obtain outpatient records - Assist the patient to learn and utilize additional healthy coping strategies 06/24 - Continue cymbalta 20 mg. daily. Will increase to 40 mg. on 06/26. - Schedule family meeting with son and daughter in law. 06/25 - Cymbalta to increase to 40mg daily tomorrow. - Continue to work on health coping skills. 06/27 - Tolerating Cymbalta and reporting benefit in mood and pain - Discussed environmental and behavioral interventions as above 06/28 - Continues to report improvement in mood and pain. Again expressing anticipatory anxiety regarding pending discharge. Will request nursing staff assist with determining her fingernails to reduce excoriation (2) TINO (generalized anxiety disorder) (3) Diabetes mellitus type 2 06/23 -Continue regimen -[facility] - Consult family educator to assist the patient to look at food differently -Consult dietitian to help patient reframe use of food (4) Benign hypertension 06/23 - Continue home dose of amlodipine - Monitor BP view of the addition of a dual neurotransmitter medicine (5) Diabetic peripheral neuropathy associated with type 2 diabetes mellitus 06/23 -Consider switching BuSpar Neurontin which would also help peripheral neuropathic pain Has been reviewed with Dr. Zenobia Pack Discharge / Aftercare Planning Primary Care Physician: Name: Dr Springer Date of Appointment: Oct 28, 2016 Time of Appointment: 9:00am Psychiatrist: Name: [facility]-Dr Thomas Date of Appointment: July 20, 2016 Time of Appointment: 9:00am Therapist: Name: Parag Cross Date of Appointment: Jul 01, 2016 Time of Appointment: 9:45am Mold Sheet Cleaner: Name: BALTAZAR Ennis Appointment Notes: Zonia will call you at home Partial or Psych Rehab: Name: [facility] Psych Rehad Visit Code E&M Code: 99082 Inventory Assets Strengths: Support of family, willingness to engage in treatment Needs: Increase healthy coping strategies Risk Factors Assessment : Yes /single/: Yes Higher / Fall in social status: No Health problems: Yes Mental Health Diagnoses: Yes Substance use disorders: No Previous attempt: Yes Smoker: No Protective Factors Assessment Judaism beliefs: Yes : No Responsible for young children: No (helps with her 3 grandchildren) Employed: No Stable relationships: Yes Supportive family: Yes Good rapport with provider: Yes Data Vital Signs Last 24 Hrs: Date Time Temp Pulse Resp B/P Pulse Ox O2 Delivery O2 Flow Rate FiO2 06/28/16 08:31 76 16 101/66 06/28/16 06:52 36.6 75 16 98/65 81 90/58 Lab Results Last 24 Hrs: Last 24 Hours Test 06/27/16 16:46 06/27/16 20:30 06/28/16 07:27 06/28/16 12:02 Bedside Glucose 102 mg/dl 110 mg/dl 99 mg/dl 97 mg/dl Problem Qualifiers (1) Diabetes mellitus type 2: Diabetes mellitus complication status: with circulatory complication Diabetes mellitus termite control servicer insulin use: with long-term use
[2016-06-28] MEDS: hydrOXYzine HCL 25 MG TAB PO PRN (21:18)
[2016-06-29 07:00] VITALS: BP_SYST 108; BP_SYST 124; BP_DIAS 73; BP_DIAS 81; PULSE 76; PULSE 84; TEMP 36.5
[2016-06-29 07:40] VITALS: BP 102/67; PULSE 76
[2016-06-29] MEDS: DULOXETINE HCL 20 MG CAP PO SCH (07:41)
[2016-06-29] MEDS: FERROUS SULFATE 325 MG TAB PO SCH ×2 (07:41→17:19)
[2016-06-29 07:42] VITALS: BP 102/67; PULSE 76
[2016-06-29] MEDS: MULTIVITAMIN TAB PO SCH (07:42)
[2016-06-29] MEDS: RISPERIDONE 0.5 MG TAB PO SCH ×2 (07:42→13:30)
[2016-06-29] MEDS: AMLODIPINE BESYLATE 5 MG TAB PO SCH (07:42)
[2016-06-29] MEDS: CYANOCOBALAMIN 500 MCG TAB (VIT B-12) PO SCH (07:43)
[2016-06-29] MEDS: INSULIN ASPART 100 UNITS/ML 3 ML PEN SC SCH ×2 (08:12→17:12)
--- NOTE | 2016-06-29 09:43 | Pharmacy Progress Note ---
Pharmacy Glycemic Sign Off Nt Date of Service Jun 29, 2016. Assessment & Plan ASSESSMENT: * Pharmacy was consulted by Dr Pack on 06/22/16 for glycemic control and to write orders per [facility] inpatient glycemic control protocol. * Major changes made by pharmacy to antidiabetic regimen include: * Basal insulin (Lantus) has been on hold as patient has not been requiring in house. All AM fasting BSGs are within goal range without exogenous basal insulin * Meal time NovoLog CR has been held. Pt not requiring CHO coverage with diabetic diet in house * Accuchecks with correctional insulin coverage reduced to BIDM for patient comfort * Patient has been receiving/requiring 0-3 units of insulin per day for adequate glycemic control * BSGs ranging 80 -110 mg/dl * Regimen has only required minor adjustments over the past 48hrs to achieve this level of control * Do not anticipate further changes in patient status that would quickly deteriorate glycemic control (i.e. patient to be NPO for upcoming procedure, steroids tapering, starting tube feedings, etc). * Please see recommendations for outpatient antidiabetic regimen below. PLAN FOR INPATIENT GLYCEMIC CONTROL: No changes needed to current regimen. * Continue to hold basal insulin while admitted * Continue NovoLog per scale BIDM * Goal range = 110 - 140 mg/dl * CF = 40 mg/dl/unit * No carb coverage needed * A1c added to discharge instructions to be communicated to PCP. * Pharmacy is signing off of glycemic consult and will no longer be making adjustments to inpatient regimen. Please feel free to re-consult if needed. Thank you. DISCHARGE RECOMMENDATIONS: * Minimal insulin (0-4 units/day) has been requiring to maintain euglycemia in house with controlled diabetic diet * Depending on pt progress with eating disorder- outpatient insulin regimen may need adjusted downwards to prevent hypoglycemia. * A1c 4.6 % on 06/23/16 - Pt may be experiencing hypoglycemia as an outpatient as this A1c is below goal range for diabetic.
--- NOTE | 2016-06-29 11:27 | Psychiatric Progress Notes ---
Progress Note Date of Service Jun 29, 2016. Interval History 55 yo female admitted with severe depression, anxiety and suicidality. Is an insulin dependent diabetic and has been abusing her insulin to keep sugars under control while binging. Chief Complaint "I'm anxious about leaving, I spoke with Medicare". Subjective Patient was seen & assessed interval progress reviewed with Treatment Team. Small excoriated area on right elbow from picking/scratching at skin due to anxiety about "change". She refused to sign Medicare form yesterday and this am prior to meeting with me. Reviewed her schedule of activities for the remainder of the week. Review of Systems Psych: denies symptoms other than stated above Constitutional: denied Cardiovascular: denied GI: denied Neurologic: denied Sleep Information Total Hours of Sleep: 7.25 Meal Information Percent of Breakfast Consumed: 100 Percent of Lunch Consumed: 100 Percent of Dinner Consumed: 100 Mental Status Exam During interview pt is: alert and oriented, cooperative Appearance: appropriately dressed, appropriately groomed Eye contact is: good Motor behavior is: other (seated in a wheelchair which she uses to get around the unit.) Speech: normal in rate, rhythm & volume Affect: mood congruent Mood is: anxious Thought process: goal directed, clear, coherent Thought content: reality based without delusions Suicidal thought are: denied Homicidal thoughts are: denied Hallucinations: denies auditory, denies visual Cognition: memory grossly intact, attention grossly intact Intelligence estimated to be: average Insight: limited Judgement: limited Medication Trials (1) past psych meds Lexapro- didn't work Last Edited By: Leah Benítez on Jun 24, 2016 09:45 Impression Adjusting to the unit, benefiting from the social interaction and support. Initiated Cymbalta 06/24, and will increased to 40 mg 06/26. Plan (1) Major depressive disorder, recurrent severe without psychotic features 06/23 - DC Prozac - Start Cymbalta 20 mg daily - Every 15 minute checks for safety - Encourage participation in group and individual counseling - Family meeting - Coordinate care with current providers and obtain outpatient records - Assist the patient to learn and utilize additional healthy coping strategies 06/24 - Continue cymbalta 20 mg. daily. Will increase to 40 mg. on 06/26. - Schedule family meeting with son and daughter in law. 06/25 - Cymbalta to increase to 40mg daily tomorrow. - Continue to work on health coping skills. 06/27 - Tolerating Cymbalta and reporting benefit in mood and pain - Discussed environmental and behavioral interventions as above 06/28 - Continues to report improvement in mood and pain. Again expressing anticipatory anxiety regarding pending discharge. Will request nursing staff assist with determining her fingernails to reduce excoriation 06/29 --staff to provide stress ball/replacement activities for things she can do with her hands, reviewed could use 25 mg Vistaril prn for itching/anxiety if fails. Agreeable to titration of Cymbalta (2) TINO (generalized anxiety disorder) (3) Diabetes mellitus type 2 06/23 -Continue regimen -[facility]'s ACHS - Consult perioperative educator to assist the patient to look at food differently -Consult dietitian to help patient reframe use of food (4) Benign hypertension 06/23 - Continue home dose of amlodipine - Monitor BP view of the addition of a dual neurotransmitter medicine (5) Diabetic peripheral neuropathy associated with type 2 diabetes mellitus 06/23 -Consider switching BuSpar Neurontin which would also help peripheral neuropathic pain Has been reviewed with Dr. Zenobia Pack Discharge / Aftercare Planning Primary Care Physician: Name: Dr Springer Date of Appointment: Oct 28, 2016 Time of Appointment: 9:00am Psychiatrist: Name: [facility]-Dr Thomas Date of Appointment: July 20, 2016 Time of Appointment: 9:00am Therapist: Name: Parag Cross Date of Appointment: Jul 01, 2016 Time of Appointment: 9:45am Digital Marketing Consultant: Name: BALTAZAR Moore-Zonia Appointment Notes: Zonia will call you at home Partial or Psych Rehab: Name: [facility] Psych Rehad Visit Code E&M Code: 61626 Inventory Assets Strengths: Support of family, willingness to engage in treatment Needs: Increase healthy coping strategies Risk Factors Assessment : Yes /single/: Yes Higher / Fall in social status: No Health problems: Yes Mental Health Diagnoses: Yes Substance use disorders: No Previous attempt: Yes Smoker: No Protective Factors Assessment Alevism beliefs: Yes : No Responsible for young children: No (helps with her 3 grandchildren) Employed: No Stable relationships: Yes Supportive family: Yes Good rapport with provider: Yes Data Vital Signs Last 24 Hrs: Date Time Temp Pulse Resp B/P Pulse Ox O2 Delivery O2 Flow Rate FiO2 06/29/16 07:42 76 102/67 06/29/16 07:40 76 102/67 06/29/16 07:00 36.5 76 16 124/81 84 108/73 Lab Results Last 24 Hrs: Last 24 Hours Test 06/28/16 12:02 06/28/16 16:00 06/29/16 07:14 Bedside Glucose 97 mg/dl 100 mg/dl 102 mg/dl Problem Qualifiers (1) Diabetes mellitus type 2: Diabetes mellitus complication status: with circulatory complication Diabetes mellitus intermission coordinator insulin use: with intermission coordinator use
[2016-06-29] MEDS ORDERED: DULOXETINE HCL 20 MG CAP PO ONE (12:00)
--- NOTE | 2016-06-29 12:33 | Medical Student: BHU Only ---
Psychiatric Progress Note IDENTIFYING DATA: Abigail Sepulveda is a 55-year-old female who currently lives in [place] with her son and daughter in law. She was admitted to the [facility] on a 201 voluntary commitment after she was brought to the hospital ED by family because of worsening mood and suicidal ideation. Information provided by the patient is considered to be reliable. SUBJECTIVE: The patient was seen and assessed today, and progress was reviewed with nursing. The patient reports doing "well but I need one more day". Sleep was "good"; noted to be for 7.25 hours by staff. She has been attending group sessions and has spoken to medicare concerning extending coverage for one more day of inpatient stay. She feels she could use one more day to adjust and that she "doesn't like change." She notes some scratching due to anxiety because she wants to stay one more day. She reports that she is tolerating her Cymbalta well. ROS: Denies N/V/D, SI, HI. MSE: Appearance is that of a groomed, malodorous, and casually dressed female who appears older than her stated age, sitting in her wheelchair. The patient is cooperative with the interview. Eye contact is appropriate. Motor behavior is normal. Speech: Appropriate volume, rate, tone. Affect: matches mood, less flat than previously noted. Mood: "good". Thought process: appropriate to content. Thought content: Denies delusions, SI, HI. Perception: No depersonalization, illusions, hallucinations. Cognition: The patient is oriented. Insight and judgment are both good. ASSESSMENT: 55 year old wheelchair bound female with severe, recurrent MDD without psychotic features. PLAN: 1. Recurrent MDD without psychotic features a. Cymbalta started 06/24/16. Increase dose today to 60mg PO daily. Reviewed the risks, benefits, and side-effects of Cymbalta and patient is in agreement with increase dose. b. Patient will continue to participate in groups and counseling. 2. Generalized anxiety disorder a. 25mg Vistaril PRN for itching secondary to anxiety 3. DM, insulin dependent a. continue to monitor blood sugars BID b. continue insulin regimen 4. HTN a. continue home dose of amlodipine 5. Aftercare Planning: a. Tentative discharge for tomorrow. Son will pick her up after work, around 5PM. b. Pt has no concerns about follow-up care. Community service group this . Beginning next week will start 4x week in order to get out of the house and socialize. Follow-up with Dr. Thomas outpatient psychiatry at 9AM. Therapy with Parag Cross 07/01/16 at 9:45AM. PCP f/u 10/28/16. Date of Service: Jun 29, 2016.
[2016-06-29] MEDS: hydrOXYzine HCL 25 MG TAB PO PRN ×2 (21:04→22:48)
[2016-06-30 06:57] VITALS: BP_SYST 114; BP_SYST 90; BP_DIAS 58; BP_DIAS 73; PULSE 74; PULSE 81; TEMP 36.6
[2016-06-30] MEDS: FERROUS SULFATE 325 MG TAB PO SCH (07:42)
[2016-06-30] MEDS: MULTIVITAMIN TAB PO SCH (07:42)
[2016-06-30] MEDS: RISPERIDONE 0.5 MG TAB PO SCH ×2 (07:43→14:05)
[2016-06-30] MEDS: CYANOCOBALAMIN 500 MCG TAB (VIT B-12) PO SCH (07:43)
[2016-06-30 07:46] VITALS: BP 87/59; PULSE 72
[2016-06-30 08:39] VITALS: BP 97/64; PULSE 80
[2016-06-30] MEDS: INSULIN ASPART 100 UNITS/ML 3 ML PEN SC SCH (08:42)
[2016-06-30] MEDS: AMLODIPINE BESYLATE 5 MG TAB PO SCH (08:58)
[2016-06-30] MEDS ORDERED: DULOXETINE HCL 20 MG CAP PO SCH (09:00)
[2016-06-30] MEDS ORDERED: CYM20 PO (09:17)
[2016-06-30] MEDS ORDERED: ATR25 PO (09:17)
--- NOTE | 2016-06-30 09:25 | Discharge Instructions ---
Discharge Information Admission Admission Date / Time: Jun 22, 2016 at 15:28 Reason for Admission: Depression Discharge Discharge Diagnosis / Problem: depressive disorder Condition at Discharge: Good Discharge Goals Goal(s): Improve function, Improve disease control, Improve nutritional status Activity Recommendations Activity Limitations: resume your previous activity . Instructions / Follow-Up Instructions / Follow-Up . SPECIAL CARE INSTRUCTIONS: 1. Follow through with your scheduled aftercare appointments. If unable to keep an appointment, please call to reschedule. 2. Take your medication only as prescribed. Medication should not be changed or stopped without the approval of your doctor. In the event of worsening symptoms or concerns about side effects, contact your doctor immediately. 3. Utilize new healthy coping skills, anger management skills, and stress management skills learned during your hospitalization. Journal feelings and process them with a support person. Identify stressors or situations that may result in relapse, deterioration or inappropriate behaviors and develop a plan to deal with those issues. 4. If your coping skills are ineffective and you are in crisis, contact your outpatient providers for direction. If unable to reach your providers, please call the CAN HELP LINE AT or go to the closest Emergency Room. 5. Avoid alcohol and un-prescribed drugs. 6. You have been provided with the Mental Health Advance Directives Pamphlet for your review. AFTERCARE APPOINTMENTS: * Please call your insurance company prior to your scheduled appointment to confirm your aftercare providers are covered. Take your insurance information to your appointments. . Discharge / Aftercare Planning Primary Care Physician: Name: Dr Springer Date of Appointment: Oct 28, 2016 Time of Appointment: 9:00am Psychiatrist: Name: [facility]-Dr Thomas Date of Appointment: July 20, 2016 Time of Appointment: 9:00am Therapist: Name Of Therapist: Parag Cross Date of Appointment: Jul 01, 2016 Time of Appointment: 9:45am Sap Gatherer: Name: BALTAZAR Ennis Appointment Notes: Zonia will call you at home Partial or Psych Rehab: Name: [facility] . Follow-Up Care Plan for Follow-Up Care: continue to check your blood sugars twice a day and follow your home sliding scale, with dietary changes your sugars have been well controlled in the hospital and your bedtime long acting insulin was discontinued. Current Hospital Diet Patient's current hospital diet: Diabetes Type 2 Diet Discharge Diet Recommended Diet: Diabetes Type 2 Diet Procedures Procedures Performed: No Pending Studies Pending Studies at Discharge: No Medical Emergencies . Who to Call and When: Medical Emergencies: For questions or emergencies related to your hospital stay, please contact the Inpatient Behavioral Health Unit at [phone]. A psychiatric attendant is on-call 05/10 for the Behavioral Health Unit for emergencies At any time you feel your situation is an emergency, you may also call 911 immediately. . Non-Emergent Contact Non-Emergency issues call your: Primary Care Provider Call Non-Emergent contact if: you have any medication questions (related to blood sugars) Advance Directives Existing Advance Directive: No Do You Have an Existing Mental: No Existing Living Will: No Existing Power of Marking Clerk: No Advance Directives Info Given: To Pt/S.O. Advance Directives Reason: Declines as Mental Health Visit. Discharge Summary Admission HPI Per the Admitting provider: Abigail Sepulveda is a 55-year-old woman with known depression and anxiety who is currently treated by Dr. Thomas at [facility] as well as Parag Cross for therapy. She reports a lifetime history of anxiety and depression that's been going on for years. She has been a diabetic for about 20 years. In her family of origin, she says that food was the coping strategy of choice. She said you were encouraged to eat when you are happy or sad and discouraged from talking about any problems. She believes this was part of the reason both she and her brother were obese. At one point, the patient said that she weighed as much as 319 pounds, but over the last several years, through the use of portion control , she has been able to get her weight down in to the 150s. She has had a great deal of medical strife with her diabetes. 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 She wears a prostatic on that leg. She has lost multiple toes on her right foot because of diabetic problems. She currently uses a wheelchair at times to get around. For a while, she had lived in a intermediate, because she could not manage to live independently but eventually moved in with her only child, a son and his family. She believes that they love her and want her to be there, but she acknowledges that they get frustrated he eats. She will binge eat on things like multiple bags of chips when her family is not there. Her son gets frustrated with her, not because of the financial outlay for money , but because she is not taking care of herself and her diabetes in that sense. This has been getting worse, she is binging more often. She is also misusing her insulin-dependent in an attempt to keep her blood sugars low. Out of fear for elevated blood sugars, she will take extra doses of insulant even when not necessary. She gives an example that last evening her blood sugar was around 125, and she would normally have given herself lots of extra insolent which she was not allowed to do here and was surprised to see that her blood sugar was in the 90s this morning. Her family has been very concerned about her, her depression and her lack of immediate communication. On Wednesday of last week, there was an incident in which she did not make it to her bedside commode quickly enough and she soiled the sheets in her bed with BM. She apparently did not change her sheets immediately, her son saw this and was very distressed that his mother was lying in a bed in her own filth. At that point he encouraged her to come to the emergency room to be evaluated for inpatient treatment. Today the patient continues to report both depression and anxiety. She says that she has been having suicidal thoughts since approximately September, with a planned overdose on her insolent. Does not want to do that as she wants to be alive for her grandchildren. She reports disturbed sleep, getting 6 or 8 hours of broken sleep per night. She denies nightmares. Her appetite is "too good" and she usually wants to eat her problems away. She has chronic anxiety, dating back to when she was a child. She says that she currently still worries about "everything". She denies that she has ever experienced auditory or visual hallucinations. She uses the word paranoid to describe feelings of worry that people are talking about her, but can also say that she realizes this is relative to her low self-esteem. She also reports occasional panic attacks that include symptoms of racing negative thoughts. The trigger for that is usually being around large groups of people. She denies any self- injurious behaviors. She denies any symptoms of restricting or purging. She denies any discrete episodes of euphoric nervousness or pleasure seeking behaviors that would be congruent with a bipolar disorder. Hospital Course (1) Major depressive disorder, recurrent severe without psychotic features 06/23 - DC Prozac - Start Cymbalta 20 mg daily - Every 15 minute checks for safety - Encourage participation in group and individual counseling - Family meeting - Coordinate care with current providers and obtain outpatient records - Assist the patient to learn and utilize additional healthy coping strategies 06/24 - Continue cymbalta 20 mg. daily. Will increase to 40 mg. on 06/26. - Schedule family meeting with son and daughter in law. 06/25 - Cymbalta to increase to 40mg daily tomorrow. - Continue to work on health coping skills. 06/27 - Tolerating Cymbalta and reporting benefit in mood and pain - Discussed environmental and behavioral interventions as above 06/28 - Continues to report improvement in mood and pain. Again expressing anticipatory anxiety regarding pending discharge. Will request nursing staff assist with determining her fingernails to reduce excoriation 06/29 --staff to provide stress ball/replacement activities for things she can do with her hands, reviewed could use 25 mg Vistaril prn for itching/anxiety if fails. Agreeable to titration of Cymbalta (2) TINO (generalized anxiety disorder) Vistaril prn, Cymbalta (3) Diabetes mellitus type 2 06/23 -Continue regimen -[facility] [place] ACHS - Consult nursing educator to assist the patient to look at food differently -Consult dietitian to help patient reframe use of food (4) Benign hypertension 06/23 - Continue home dose of amlodipine - Monitor BP view of the addition of a dual neurotransmitter medicine (5) Diabetic peripheral neuropathy associated with type 2 diabetes mellitus 06/23 -Consider switching BuSpar Neurontin which would also help peripheral neuropathic pain 06/30/16--feels Cymbalta is helping Risk Factors Assessment : Yes /single/: Yes Higher / Fall in social status: No Access to guns: No Health problems: Yes Mental Health Diagnoses: Yes Substance use disorders: No Previous attempt: Yes Smoker: No Protective Factors Assessment Worship beliefs: Yes : No Responsible for young children: No (helps with her 3 grandchildren) Employed: No Stable relationships: Yes Supportive family: Yes Good rapport with provider: Yes Day of Discharge Assessment Alyssa is more relaxed today. She verbalizes good understanding of her outpatient service plan and family plan to secure food and insulin. She is bright and notes decreased physical and emotional pain. Her thoughts remain organized and she denies SI and HI. She exhibits no evidence of psychosis and is psychiatrically stable for discharge to outpatient level of care. Laboratory Test 06/22/16 09:45 06/22/16 10:40 06/23/16 08:17 06/29/16 15:52 White Blood Count 3.40 Red Blood Count 4.23 Hemoglobin 12.1 Hematocrit 37.1 Mean Corpuscular Volume 87.7 Mean Corpuscular Hemoglobin 28.6 Mean Corpuscular Hemoglobin Concent 32.6 Platelet Count 186 Mean Platelet Volume 9.1 Neutrophils (%) (Auto) 56.7 Lymphocytes (%) (Auto) 33.2 Monocytes (%) (Auto) 6.8 Eosinophils (%) (Auto) 2.4 Basophils (%) (Auto) 0.6 Neutrophils # (Auto) 1.93 Lymphocytes # (Auto) 1.13 Monocytes # (Auto) 0.23 Eosinophils # (Auto) 0.08 Basophils # (Auto) 0.02 RDW Standard Deviation 42.1 RDW Coefficient of Variation 13.1 Immature Granulocyte % (Auto) 0.3 Immature Granulocyte # (Auto) 0.01 Sodium Level 143 Potassium Level 4.0 Chloride Level 110 Carbon Dioxide Level 27 Anion Gap 6.0 Blood Urea Nitrogen 16 Creatinine 0.86 Est Creatinine Clear Calc Drug Dose 75.4 Estimated GFR () 88.8 Estimated GFR (Non- 76.6 BUN/Creatinine Ratio 18.1 Random Glucose 89 Calcium Level 8.5 Total Bilirubin 0.3 Direct Bilirubin < 0.1 Aspartate Amino Transferase (AST) 15 Alanine Aminotransferase (ALT) 14 Alkaline Phosphatase 61 Total Protein 7.3 Albumin 3.5 Thyroid Stimulating Hormone (TSH) 1.000 Ethyl Alcohol mg/dL < 3.0 Urine Color YELLOW Urine Appearance CLEAR Urine pH 6.5 Urine Specific [place] 1.012 Urine Protein NEG Urine Glucose (UA) NEG Urine Ketones NEG Urine Occult Blood NEG Urine Nitrite NEG Urine Bilirubin NEG Urine Urobilinogen NEG Urine Leukocyte Esterase SMALL Urine WBC (Auto) 5-10 Urine RBC (Auto) 0-4 Urine Hyaline Casts (Auto) 1-5 Urine Epithelial Cells (Auto) >30 Urine Bacteria (Auto) NEG Urine Opiates Screen NEG Urine Methadone, Qualitative NEG Urine Barbiturates NEG Urine Phencyclidine (PCP) Level NEG Ur Amphetamine/Methamphetamine NEG MDMA (Ecstasy) Screen NEG Urine Benzodiazepines Screen NEG Urine Cocaine Metabolite NEG Urine Marijuana (THC) NEG Fasting Glucose 91 Estimated Average Glucose 85 Hemoglobin A1c 4.6 Triglycerides Level 111 Cholesterol Level 125 HDL Cholesterol 41 LDL Cholesterol, Calculated 62 VLDL Cholesterol, Calculated 22 Cholesterol/HDL Ratio 3.0 POC Glucose 108 Test 06/30/16 07:31 POC Glucose 99 Total Time Total Time Spent (min): Greater than 30 minutes Total Time Included: examination of the patient, discharge planning, medication reconciliation Tobacco Cessation at Discharge Smoking Status: Never Smoker FDA approved Prescription: non-smoker Antipsychotic Meds Rationale she exhibits no abnormal motor movements, continue routine monitoring of metabolic parameters by outpatient psychiatrist Problem Qualifiers (1) Diabetes mellitus type 2: Diabetes mellitus complication status: with circulatory complication Diabetes mellitus fpc insulin use: with intermediate teacher use
--- NOTE | 2016-06-30 09:34 | Discharge Instructions ---
Discharge Information Report Includes Report will include the: Discharge Instructions & Summary Admission Admission Date / Time: Jun 22, 2016 at 15:28 Reason for Admission: Depression Discharge Discharge Diagnosis / Problem: depressive disorder Condition at Discharge: Good Discharge Goals Goal(s): Improve function, Improve disease control Activity Recommendations Activity Limitations: resume your previous activity . Instructions / Follow-Up Instructions / Follow-Up . SPECIAL CARE INSTRUCTIONS: 1. Follow through with your scheduled aftercare appointments. If unable to keep an appointment, please call to reschedule. 2. Take your medication only as prescribed. Medication should not be changed or stopped without the approval of your doctor. In the event of worsening symptoms or concerns about side effects, contact your doctor immediately. 3. Utilize new healthy coping skills, anger management skills, and stress management skills learned during your hospitalization. Journal feelings and process them with a support person. Identify stressors or situations that may result in relapse, deterioration or inappropriate behaviors and develop a plan to deal with those issues. 4. If your coping skills are ineffective and you are in crisis, contact your outpatient providers for direction. If unable to reach your providers, please call the CAN HELP LINE AT or go to the closest Emergency Room. 5. Avoid alcohol and un-prescribed drugs. 6. You have been provided with the Mental Health Advance Directives Pamphlet for your review. AFTERCARE APPOINTMENTS: * Please call your insurance company prior to your scheduled appointment to confirm your aftercare providers are covered. Take your insurance information to your appointments. . Discharge / Aftercare Planning Primary Care Physician: Name: Dr Springer Date of Appointment: Oct 28, 2016 Time of Appointment: 9:00am Psychiatrist: Name: [facility]-Dr Thomas Date of Appointment: July 20, 2016 Time of Appointment: 9:00am Therapist: Name Of Therapist: Parag Cross Date of Appointment: Jul 01, 2016 Time of Appointment: 9:45am Customer Quality Specialist: Name: BALTAZAR Ennis Appointment Notes: Zonia will call you at home Partial or Psych Rehab: Name: [facility] . Follow-Up Care Plan for Follow-Up Care: continue to check your blood sugars twice a day and use home sliding scale. With dietary control, your bedtime long acting insulin was able to be discontinued. Current Hospital Diet Patient's current hospital diet: Diabetes Type 2 Diet Discharge Diet Recommended Diet: Regular Diet Procedures Procedures Performed: No Pending Studies Pending Studies at Discharge: No Medical Emergencies . Who to Call and When: Medical Emergencies: For questions or emergencies related to your hospital stay, please contact the Inpatient Behavioral Health Unit at [phone]. A behavior clinician is on-call 05/10 for the Behavioral Health Unit for emergencies At any time you feel your situation is an emergency, you may also call 911 immediately. . Non-Emergent Contact Non-Emergency issues call your: Primary Care Provider Call Non-Emergent contact if: you have any medication questions (re: insulin/ blood sugars) Advance Directives Existing Advance Directive: No Do You Have an Existing Mental: No Existing Living Will: No Existing Power of Algorithm Design Engineer: No Advance Directives Info Given: To Pt/S.O. Advance Directives Reason: Declines as Mental Health Visit. Discharge Summary Admission HPI Per the Admitting provider: Abigail Sepulveda is a 55-year-old woman with known depression and anxiety who is currently treated by Dr. Thomas at [facility] as well as Parag Cross for therapy. She reports a lifetime history of anxiety and depression that's been going on for years. She has been a diabetic for about 20 years. In her family of origin, she says that food was the coping strategy of choice. She said you were encouraged to eat when you are happy or sad and discouraged from talking about any problems. She believes this was part of the reason both she and her brother were obese. At one point, the patient said that she weighed as much as 319 pounds, but over the last several years, through the use of portion control , she has been able to get her weight down in to the 150s. She has had a great deal of medical strife with her diabetes. 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 She wears a prostatic on that leg. She has lost multiple toes on her right foot because of diabetic problems. She currently uses a wheelchair at times to get around. For a while, she had lived in a longterm, because she could not manage to live independently but eventually moved in with her only child, a son and his family. She believes that they love her and want her to be there, but she acknowledges that they get frustrated he eats. She will binge eat on things like multiple bags of chips when her family is not there. Her son gets frustrated with her, not because of the financial outlay for money , but because she is not taking care of herself and her diabetes in that sense. This has been getting worse, she is binging more often. She is also misusing her insulin-dependent in an attempt to keep her blood sugars low. Out of fear for elevated blood sugars, she will take extra doses of insulant even when not necessary. She gives an example that last evening her blood sugar was around 125, and she would normally have given herself lots of extra insolent which she was not allowed to do here and was surprised to see that her blood sugar was in the 90s this morning. Her family has been very concerned about her, her depression and her lack of immediate communication. On Wednesday of last week, there was an incident in which she did not make it to her bedside commode quickly enough and she soiled the sheets in her bed with BM. She apparently did not change her sheets immediately, her son saw this and was very distressed that his mother was lying in a bed in her own filth. At that point he encouraged her to come to the emergency room to be evaluated for inpatient treatment. Today the patient continues to report both depression and anxiety. She says that she has been having suicidal thoughts since approximately September, with a planned overdose on her insolent. Does not want to do that as she wants to be alive for her grandchildren. She reports disturbed sleep, getting 6 or 8 hours of broken sleep per night. She denies nightmares. Her appetite is "too good" and she usually wants to eat her problems away. She has chronic anxiety, dating back to when she was a child. She says that she currently still worries about "everything". She denies that she has ever experienced auditory or visual hallucinations. She uses the word paranoid to describe feelings of worry that people are talking about her, but can also say that she realizes this is relative to her low self-esteem. She also reports occasional panic attacks that include symptoms of racing negative thoughts. The trigger for that is usually being around large groups of people. She denies any self- injurious behaviors. She denies any symptoms of restricting or purging. She denies any discrete episodes of euphoric nervousness or pleasure seeking behaviors that would be congruent with a bipolar disorder. Hospital Course (1) Major depressive disorder, recurrent severe without psychotic features 06/23 - DC Prozac - Start Cymbalta 20 mg daily - Every 15 minute checks for safety - Encourage participation in group and individual counseling - Family meeting - Coordinate care with current providers and obtain outpatient records - Assist the patient to learn and utilize additional healthy coping strategies 06/24 - Continue cymbalta 20 mg. daily. Will increase to 40 mg. on 06/26. - Schedule family meeting with son and daughter in law. 06/25 - Cymbalta to increase to 40mg daily tomorrow. - Continue to work on health coping skills. 06/27 - Tolerating Cymbalta and reporting benefit in mood and pain - Discussed environmental and behavioral interventions as above 06/28 - Continues to report improvement in mood and pain. Again expressing anticipatory anxiety regarding pending discharge. Will request nursing staff assist with determining her fingernails to reduce excoriation 06/29 --staff to provide stress ball/replacement activities for things she can do with her hands, reviewed could use 25 mg Vistaril prn for itching/anxiety if fails. Agreeable to titration of Cymbalta (2) TINO (generalized anxiety disorder) Vistaril prn, Cymbalta (3) Diabetes mellitus type 2 06/23 -Continue regimen -[facility] ACHS - Consult educator senior clinical to assist the patient to look at food differently -Consult dietitian to help patient reframe use of food (4) Benign hypertension 06/23 - Continue home dose of amlodipine - Monitor BP view of the addition of a dual neurotransmitter medicine (5) Diabetic peripheral neuropathy associated with type 2 diabetes mellitus 06/23 -Consider switching BuSpar Neurontin which would also help peripheral neuropathic pain 06/30/16--feels Cymbalta is helping Risk Factors Assessment : Yes /single/: Yes Higher / Fall in social status: No Access to guns: No Health problems: Yes Mental Health Diagnoses: Yes Substance use disorders: No Previous attempt: Yes Smoker: No Protective Factors Assessment Latter-Day beliefs: Yes : No Responsible for young children: No (helps with her 3 grandchildren) Employed: No Stable relationships: Yes Supportive family: Yes Good rapport with provider: Yes Day of Discharge Assessment Alyssa is much improved and voices good understanding of her follow up care, need for structure and dietary control as well as family plans to secure food and her insulin. She continues to deny SI/HI/dyer and is psychiatrically stable for discharge to outpatient level of care. Safety plan was again reviewed and she was bright/calm and smiling. Found stress ball helpful yesterday for anxiety and did not pick at skin. Laboratory Test 06/22/16 09:45 06/22/16 10:40 06/23/16 08:17 06/29/16 15:52 White Blood Count 3.40 Red Blood Count 4.23 Hemoglobin 12.1 Hematocrit 37.1 Mean Corpuscular Volume 87.7 Mean Corpuscular Hemoglobin 28.6 Mean Corpuscular Hemoglobin Concent 32.6 Platelet Count 186 Mean Platelet Volume 9.1 Neutrophils (%) (Auto) 56.7 Lymphocytes (%) (Auto) 33.2 Monocytes (%) (Auto) 6.8 Eosinophils (%) (Auto) 2.4 Basophils (%) (Auto) 0.6 Neutrophils # (Auto) 1.93 Lymphocytes # (Auto) 1.13 Monocytes # (Auto) 0.23 Eosinophils # (Auto) 0.08 Basophils # (Auto) 0.02 RDW Standard Deviation 42.1 RDW Coefficient of Variation 13.1 Immature Granulocyte % (Auto) 0.3 Immature Granulocyte # (Auto) 0.01 Sodium Level 143 Potassium Level 4.0 Chloride Level 110 Carbon Dioxide Level 27 Anion Gap 6.0 Blood Urea Nitrogen 16 Creatinine 0.86 Est Creatinine Clear Calc Drug Dose 75.4 Estimated GFR () 88.8 Estimated GFR (Non- 76.6 BUN/Creatinine Ratio 18.1 Random Glucose 89 Calcium Level 8.5 Total Bilirubin 0.3 Direct Bilirubin < 0.1 Aspartate Amino Transferase (AST) 15 Alanine Aminotransferase (ALT) 14 Alkaline Phosphatase 61 Total Protein 7.3 Albumin 3.5 Thyroid Stimulating Hormone (TSH) 1.000 Ethyl Alcohol mg/dL < 3.0 Urine Color YELLOW Urine Appearance CLEAR Urine pH 6.5 Urine Specific [place] 1.012 Urine Protein NEG Urine Glucose (UA) NEG Urine Ketones NEG Urine Occult Blood NEG Urine Nitrite NEG Urine Bilirubin NEG Urine Urobilinogen NEG Urine Leukocyte Esterase SMALL Urine WBC (Auto) 5-10 Urine RBC (Auto) 0-4 Urine Hyaline Casts (Auto) 1-5 Urine Epithelial Cells (Auto) >30 Urine Bacteria (Auto) NEG Urine Opiates Screen NEG Urine Methadone, Qualitative NEG Urine Barbiturates NEG Urine Phencyclidine (PCP) Level NEG Ur Amphetamine/Methamphetamine NEG MDMA (Ecstasy) Screen NEG Urine Benzodiazepines Screen NEG Urine Cocaine Metabolite NEG Urine Marijuana (THC) NEG Fasting Glucose 91 Estimated Average Glucose 85 Hemoglobin A1c 4.6 Triglycerides Level 111 Cholesterol Level 125 HDL Cholesterol 41 LDL Cholesterol, Calculated 62 VLDL Cholesterol, Calculated 22 Cholesterol/HDL Ratio 3.0 POC Glucose 108 Test 06/30/16 07:31 POC Glucose 99 Total Time Total Time Spent (min): Greater than 30 minutes Total Time Included: examination of the patient, discharge planning, medication reconciliation Tobacco Cessation at Discharge Smoking Status: Never Smoker FDA approved Prescription: non-smoker Antipsychotic Meds Rationale she exhibits no abnormal motor movements, continue routine monitoring of metabolic parameters by outpatient psychiatrist Problem Qualifiers (1) Diabetes mellitus type 2: Diabetes mellitus complication status: with circulatory complication Diabetes mellitus detention insulin use: with detention use
[2016-07-01] MEDS ORDERED: DULOXETINE HCL 20 MG CAP PO SCH (09:00)
[2017-01-26] MEDS ORDERED: METF-841 PO (15:48)
[2017-01-26] MEDS ORDERED: FERR1TAB13 PO (15:48)
[2017-01-26] MEDS ORDERED: CLON1TAB3 PO (15:48)
== END 2016-06-30 17:45 | disposition home or self-care (01) | DRG 885 ==
LOC: ENRESERVDT → ENRESERVTM → C.EDB 09:17 → C.MHU 15:28
PROVIDERS: ADMIT Psychiatry & Neurology Psychiatry; ATTEND Psychiatry & Neurology Psychiatry
DX: F33.2 Major depressive disorder, recurrent severe without psychotic features (principal); R45.851 Suicidal ideations; F41.1 Generalized anxiety disorder; E11.40 Type 2 diabetes mellitus with diabetic neuropathy, unspecified; I10 Essential (primary) hypertension; D64.9 Anemia, unspecified; Z79.4 Long term (current) use of insulin; Z79.899 Other long term (current) drug therapy; Z23 Encounter for immunization; Z89.619 Acquired absence of unspecified leg above knee; Z96.652 Presence of left artificial knee joint

== ENCOUNTER 2016-08-12 12:34 | Emergency (ER) | payer OTHER ==
[~2016-08-12] VITALS: Ht 172.7 cm; Wt 99.2 kg
[~2016-08-12 12:34] MED LIST changes: +ATR25 PO; +CYM20 PO; -INSDGI SC; -OXYC1TAB3 PO; -PRZ/40 PO
[2016-08-12 12:48] VITALS: TEMP 36.5; Ht 172.7 cm; Wt 99.2 kg
[2016-08-12] MEDS ORDERED: INSDGI SC (13:15)
--- NOTE | 2016-08-12 13:21 | EMERGENCY ROOM VISIT NOTE ---
History Report prepared by Lynnette: Parvin Purcell Under the Supervision of: Dr. Lincoln Nunez M.D. First contact with patient: 12:58 Chief Complaint: HYPOGLYCEMIA Stated Complaint: HYPOGLYCEMIA Nursing Triage Summary: Pt presents via als from a group meeting. Per pt, she has been fixating on her blood sugar. When she took it this morning, she was in the 130's and she was worried it would go too high so she took multiple doses of novolog, "probably 30 units all together". When pt was at group meeting she started feeling shaky and vomited despite group members giving her "soda and candy". EMS called, BSG 46 on scene, 1/2 amp D50 administered by EMS, recheck bsg QUALITY CONTROL MICROBIOLOGIST for 163. Upon arrival pt is disheveled, shaking, covered in vomit, crying, BSG 112. Pts family member at the bedside verbalizing pt is on a sliding scale for when she weighed over 300lbs, the scale was never adjusted when she lost weight. Pts family member reports pt was recently in 3S and this is a constant issue that she obsesses over and "puts herself in diabetic shock". Per pt "There's something wrong with my mind, I fixate on my blood sugar, I am obsessed it will go too high so I give myself too much insulin". History of Present Illness The patient is a 55 year old female who presents to the Emergency Room via ALS with complaints of persistent hypoglycemia that began prior to arrival. The patient reports that she has a history of being obsessed with her blood glucose levels going too high. She states that today she found her blood glucose to be 137 so she took three units of NovoLog. Per nursing notes the patient's blood glucose upon arrival of EMS was 46 mg/dL and she was given a half an amp of D50. Nursing notes report that the patient has vomited prior to arrival. The patient states that she would like to talk to someone today regarding her ongoing issue of worrying her sugar levels would go too high. She denies any suicidal ideation today. The patient states that she was last evaluated at [facility] 1 month ago. Source of History: patient Onset: prior to arrival Position: other (global) Symptom Intensity: 46 mg/dL Quality: other (hypoglycemia) Timing: other (persistent) Associated Symptoms: + vomiting Review of Systems See HPI for pertinent positives & negatives. A total of 10 systems reviewed and were otherwise negative. Past Medical & Surgical Medical Problems: (1) Amputated toe (2) Anxiety (3) Chronic anemia (4) Depression (5) Diabetes mellitus type 2 (6) Diabetic peripheral neuropathy associated with type 2 diabetes mellitus (7) TINO (generalized anxiety disorder) (8) history of venous thrombus and embolism (9) Loss of sensation (10) Major depressive disorder, recurrent severe without psychotic features (11) past psych meds (12) s/p left TKA (13) s/p transmet amputation right foot (14) Status post partial amputation of foot (15) Suicidal ideation Surgical Problems: (1) Amputee, above knee (2) History of carpal tunnel release of both wrists (3) History of total knee arthroplasty (4) S/P revision of total knee Family History Cancer Diabetes mellitus Heart disease Hypertension Kidney disease Kidney stones Social History Smoking Status: Former Smoker Alcohol Use: none Drug Use: none Marital Status: Housing Status: lives with family Occupation Status: disabled Current/Historical Medications Scheduled Amlodipine Besylate (Amlodipine Besylate), 5 MG PO DAILY Buspirone HCl (Buspirone HCl), 10 MG PO TID Cyanocobalamin (Vitamin B-12), 500 MCG PO DAILY Duloxetine HCl (Duloxetine HCl), 60 MG PO QAM Ferrous Sulfate (Ferrous Sulfate), 325 MG PO BID Insulin Aspart (Novolog Penfill), UNITS SC AC Insulin Glargine (Lantus), 4 UNIT SC QPM Multivitamin (Multivitamin), 1 TAB PO DAILY Risperidone (Risperidone), 0.5 MG PO BID Scheduled PRN Hydroxyzine HCl (Hydroxyzine HCl), 25 MG PO Q6 PRN for Anxiety Allergies Coded Allergies: Clam (Unverified Allergy, Severe, HIVES, 08/12/16) Hives all over body Ceftriaxone (Verified Allergy, Intermediate, HIVES, Rash, 08/12/16) Penicillins (Verified Allergy, Intermediate, body gets red, 08/12/16) Vancomycin (Verified Adverse Reaction, Mild, RED MAN SYNDROME, 08/12/16) Physical Exam Vital Signs Date Time Temp Pulse Resp B/P Pulse Ox O2 Delivery O2 Flow Rate FiO2 08/12/16 18:37 101 18 97/74 97 Room Air 08/12/16 16:00 102 18 123/82 100 Room Air 08/12/16 14:01 95 18 117/74 100 Room Air 08/12/16 12:48 36.5 99 18 110/78 99 Room Air 08/12/16 12:43 103 Physical Exam GENERAL: Patient is in no acute distress. Shivering. HEENT: No acute trauma, normocephalic atraumatic, mucous membranes moist, no nasal congestion, no scleral icterus. NECK: No stridor, no adenopathy, no meningismus, trachea is midline. LUNGS: Clear to auscultation bilaterally, no wheeze, no rhonchi, breath sounds equal. HEART: Subtle systolic murmur, regular rate and rhythm. ABDOMEN: Soft, nontender, bowel sounds positive, no hernias, no peritonitis. EXTREMITIES: Surgically absent toes in right lower extremity, left above the knee amputation. NEUROLOGIC: Oriented x 3, no acute motor or sensory deficits, no focal weakness. SKIN: No rash, no jaundice, no diaphoresis. PSYCH: Cooperative, denies being suicidal asking for a voluntary stay for her obsession with her blood sugar. Medical Decision & Procedures Laboratory Results 08/12/16 13:49 08/12/16 13:49 Test 08/12/16 13:49 08/12/16 14:10 08/12/16 18:01 Red Blood Count 4.47 M/uL (4.2-5.4) Mean Corpuscular Volume 84.8 fL (80-100) Mean Corpuscular Hemoglobin 27.3 pg (25-34) Mean Corpuscular Hemoglobin Concent 32.2 g/dl (32-36) RDW Standard Deviation 38.3 fL (36.4-46.3) RDW Coefficient of Variation 12.5 % (11.5-14.5) Mean Platelet Volume 8.8 fL (7.4-10.4) Anion Gap 6.0 mmol/L (3-11) Est Creatinine Clear Calc Drug Dose 79.2 ml/min Estimated GFR () 74.0 Estimated GFR (Non- 63.8 BUN/Creatinine Ratio 15.9 (10-20) Calcium Level 8.2 mg/dl (8.5-10.1) Total Bilirubin 0.4 mg/dl (0.2-1) Aspartate Amino Transf (AST/SGOT) 27 U/L (15-37) Alanine Aminotransferase (ALT/SGPT) 21 U/L (12-78) Alkaline Phosphatase 70 U/L (45-117) Total Protein 7.8 gm/dl (6.4-8.2) Albumin 3.6 gm/dl (3.4-5.0) Globulin 4.2 gm/dl (2.5-4.0) Albumin/Globulin Ratio 0.9 (0.9-2) Thyroid Stimulating Hormone (TSH) 0.637 uIu/ml (0.300-4.500) Ethyl Alcohol mg/dL < 3.0 mg/dl (0-3) Urine Color YELLOW Urine Appearance CLEAR (CLEAR) Urine pH 7.5 (4.5-7.5) Urine Specific [place] 1.014 (1.000-1.030) Urine Protein NEG (NEG) Urine Glucose (UA) NEG (NEG) Urine Ketones NEG (NEG) Urine Occult Blood NEG (NEG) Urine Nitrite NEG (NEG) Urine Bilirubin NEG (NEG) Urine Urobilinogen NEG (NEG) Urine Leukocyte Esterase TRACE (NEG) Urine WBC (Auto) 1-5 /hpf (0-5) Urine RBC (Auto) 5-10 /hpf (0-4) Urine Hyaline Casts (Auto) 1-5 /lpf (0-5) Urine Epithelial Cells (Auto) 20-30 /lpf (0-5) Urine Bacteria (Auto) NEG (NEG) Urine Opiates Screen NEG (NEG) Urine Methadone, Qualitative NEG (NEG) Urine Barbiturates NEG (NEG) Urine Phencyclidine (PCP) Level NEG (NEG) Ur Amphetamine/Methamphetamine NEG (NEG) MDMA (Ecstasy) Screen NEG (NEG) Urine Benzodiazepines Screen NEG (NEG) Urine Cocaine Metabolite NEG (NEG) Urine Marijuana (THC) NEG (NEG) Bedside Glucose 185 mg/dl (70-90) Laboratory results reviewed by me. Medications Administered Medications (Trade) Dose Ordered Sig/Edy Route Start Time Stop Time Status Last Admin Dose Admin Insulin Human Regular (novoLIN-R U-100 PER UNIT) 4 units NOW STAT SQ 08/12/16 16:49 08/12/16 16:51 DC 08/12/16 17:05 4 UNITS Insulin Human Regular (novoLIN-R U-100 PER UNIT) 6 units NOW STAT SQ 08/12/16 18:11 08/12/16 18:14 DC 08/12/16 18:51 6 UNITS ED Course 1301: The patient was evaluated in room C5. A complete history and physical exam was performed. 1500: The patient is cleared to be evaluated by the psychiatric case preparer and liner. 1505: Per the psychiatric case preparer and liner, she spoke to the patients family and they are filling out a 302 on the patient. 1649: Ordered Insulin Human Regular 4 units. 1748: The patient has been referred to [facility] for further psychiatric care. 181: Ordered Insulin Human Regular 6 units. 190: Per the psych case preparer and liner, the patient has been accepted to [facility] for further psychiatric care. Medical Decision The patient is a 55 year old female who presents to the ED with complaints of hypoglycemia. Differential diagnoses considered include drug or alcohol abuse, suicidal ideation, obsessive compulsive disorder, psychosis, hypoglycemia, electrolyte imbalance, medication error. There is no leukocytosis or concerning anemia. Renal panel testing shows hypoglycemia which improved here with eating. No kidney failure, no hepatitis. The patient appears to be in a euthyroid state. Urine tox was negative. Alcohol level was undetectable. Urinalysis did not show evidence for infection. The patient received a meal, her sugar began to rise and she was given 4 units of subcutaneous regular insulin. She did well, sugar is now about 185. The patient was given a regular meal, she was given her typical dose of 6 units of subcutaneous insulin just before the start of her meal. The patient's hypoglycemia has resolved. She does admit that she is obsessed with her blood sugars. Her family is concerned that she actually may be suicidal. A 302 petition was filled out by the family, no warrant was signed. The patient is voluntary and would like to be admitted to the psychiatric portion of the hospital. A referral was made to [facility]. The psychiatric case preparer and liner has been involved here in the emergency room. The patient is being transferred to [facility] for an [facility] stay. The transfer paperwork has been filled out. Medication Reconciliation: I attest that I have personally reviewed the patient' s current medication list. Blood Pressure Screening: Patient was found to have normal blood pressure on screening and does not require follow-up. Impression Primary Impression: Hypoglycemia Additional Impression: Mood disorder Scribe Attestation The scribe's documentation has been prepared under my direction and personally reviewed by me in its entirety. I confirm that the note above accurately reflects all work, treatment, procedures, and medical decision making performed by me. Departure Information Dispostion Mental Health Acute Care Referrals Theron Springer D.O. (PCP) Problem Qualifiers
[2016-08-12 13:52] LABS: HEMATOCRIT 37.9 % (37-47); MEAN CELL VOLUME 84.8 fL (80-100); MEAN CORPUSCULAR HEMOGLOBIN 27.3 pg (25-34); MEAN CORPUSCULAR HGB CONC 32.2 g/dl (32-36); MEAN PLATELET VOLUME 8.8 fL (7.4-10.4); PLATELET COUNT 201 K/uL (130-400); RED BLOOD COUNT 4.47 M/uL (4.2-5.4); WHITE BLOOD COUNT 7.19 K/uL (4.8-10.8)
[2016-08-12 14:18] LABS: BUN/CREATININE RATIO 15.9 (10-20); CALCIUM 8.2 mg/dl (8.5-10.1); POTASSIUM 3.6 mmol/L (3.5-5.1)
[2016-08-12 14:26] LABS: URINE APPEARANCE CLEAR (CLEAR); URINE BILIRUBIN NEG (NEG); URINE COLOR YELLOW; URINE EPITHELIAL CELL AUTO 20-30 /lpf (0-5); URINE NITRITE NEG (NEG); URINE PH 7.5 (4.5-7.5); URINE SPECIFIC GRAVITY 1.014 (1.000-1.030); UROBILINOGEN NEG (NEG); ZZUR CULT IF INDIC CLEAN CATCH NO
[2016-08-12 14:27] LABS: MANUAL MICROSCOPIC REQUIRED? NO; REVIEW REQ? NO
[2016-08-12 14:46] LABS: BENZODIAZEPINE, URINE NEG (NEG); COCAINE,URINE NEG (NEG); PHENCYCLIDINE, URINE NEG (NEG)
[2016-08-12 14:53] LABS: ALB/GLOB RATIO 0.9 (0.9-2); THYROID STIMULATING HORMONE 0.637 uIu/ml (0.300-4.500)
[2016-08-12] MEDS ORDERED: NovoLIN-R INSULIN PER UNIT CHARGE SQ STA ×2 (16:49→18:11)
[2016-08-12 21:20] VITALS: BP 100/69; PULSE 98; O2SAT 98
[2017-01-26] MEDS ORDERED: FERR1TAB13 PO (15:48)
[2017-01-26] MEDS ORDERED: METF-841 PO (15:48)
[2017-01-26] MEDS ORDERED: CLON1TAB3 PO (15:48)
== END 2016-08-12 21:05 | disposition short-term general hospital (02) ==
LOC: EDBD 12:34 → C.EDC 12:37 → C.EDA 21:05
DX: E11.649 Type 2 diabetes mellitus with hypoglycemia without coma (principal); F39 Unspecified mood [affective] disorder; F41.9 Anxiety disorder, unspecified; D64.9 Anemia, unspecified; F32.9 Major depressive disorder, single episode, unspecified; Z86.718 Personal history of other venous thrombosis and embolism; Z89.431 Acquired absence of right foot; Z80.9 Family history of malignant neoplasm, unspecified; Z83.3 Family history of diabetes mellitus; Z82.49 Family history of ischemic heart disease and other diseases of the circulatory system; Z84.1 Family history of disorders of kidney and ureter; Z87.442 Personal history of urinary calculi; Z87.891 Personal history of nicotine dependence; Z79.4 Long term (current) use of insulin; Z79.899 Other long term (current) drug therapy

== ENCOUNTER → 2017-02-10 | Day surgery (SDC) | payer OTHER ==
[2017-01-26 15:48] VITALS: Ht 172.7 cm; Wt 63.6 kg
[~2017-02-10] VITALS: Ht 172.7 cm; Wt 63.6 kg
[~2017-02-10] MED LIST changes: +500ML BSS 0.3ML EPI 1:1000PF IRRIG ONE; +ACETAMINOPHEN 325 MG TAB PO PRN; +AMVISC PLUS 0.8ML SYRINGE INT OCU ONE; +ATROPINE SULFATE 0.1 MG/ML 5ML SYR IV PRN; +AcetaZOLAMIDE 250 MG TAB PO SCH; +BETAXOLOL HCL 0.25% OP SUSP PER DROP CHARGE OPR SCH; +BRIMONIDINE TART 0.2% OP SOLN PER DROP CHARGE ONE; +BRIMONIDINE TARTRATE 0.2% 5ML ONE; +BSS FLUSH ONE; +CLON1TAB3 PO; -CYM20 PO; +ENDOCOAT 0.85ML SYRINGE INT OCU ONE; +EpHEDrine SULFATE INJ 50 MG/ML AMP IV PRN; +EpINEphrine INJ 1MG/ML AMP 1 MG/ML AMP ONE; +FERR1TAB13 PO; -FRRS300 PO; -INSU1INJ2 SC; +LACTATED RINGER'S 1000ML 500 ML IV SCH; +LIDOCAINE 4% OP SOLN DROP CHARGE ONE; +LIDOCAINE 4% OP SOLN DROP CHARGE OPR SCH; +LIDOCAINE HCL 1% MPF 2 ML VIAL ONE; +METF-841 PO; +MIDAZOLAM HCL 1 MG/ML 2ML VIAL ONE; +MIX: 4ML BSS 1ML EPI 1:1000 PF INSTIL ONE; +MOXIFLOXACIN OPH SOLN PER DROP CHARGE ONE; +OCUCOAT 1 ML SOLN IO ONE; +POVIDONE-IODINE OP SOLN 30 ML BTL ONE; +PROPARACAINE 0.5% OP SOLN PER DROP CHARGE OPR SCH; +TOBRAMYCIN/DEXAMETHASONE OPH OINT PER APPLN CHARGE ONE
[2017-02-10] MEDS: PHENYLEPHRINE HCL 2.5% OP SOLN PER DROP CHARGE OPR SCH ×2 (06:45→06:50)
[2017-02-10] MEDS: TROPICAMIDE 1% OP SOLN PER DROP CHARGE OPR SCH ×2 (06:46→06:51)
[2017-02-10] MEDS: CYCLOPENTOLATE HCL 1% OP SOLN PER DROP CHARGE OPR SCH ×2 (06:47→06:52)
[2017-02-10] MEDS: MOXIFLOXACIN OPH SOLN PER DROP CHARGE OPR SCH ×2 (06:48→06:55)
--- NOTE | 2017-02-10 06:53 | History & Physical Bridge - [place] ---
H&P Re-Evaluation Bridge Note: I have examined the patient, reviewed the History & Physical and in the interval since the performance of the History & Physical I have noted the following changes of clinical significance: No changes noted
--- NOTE | 2017-02-10 07:18 | Discharge Instructions-SurgCtr ---
Discharge Instructions Date of Service Feb 10, 2017. Visit Reason for Visit: Cataract Right Eye Discharge Discharge Diagnosis / Problem: lens implant right eye Discharge Goals Goal(s): Improve function Medications Stopped Medications Name(s): metformin stopped on wednesday Activity Recommendations Activity Limitations: resume your previous activity Lifting Limitations: no more than 10 pounds Exercise/Sports Limitations: gradually increase as tolerated May Resume Sexual Activity: when tolerated Shower/Bathe: tomorrow Driving or Machine Use: resume 1 day after discharge Anesthesia . Post Anesthesia Instructions: If you have had General Anesthesia or IV Sedation: * Do not drive today. * Resume driving when surgeon permits. * Do not make important decisions or sign legal documents today. * Call surgeon for: 1. Temperature elevations greater than 101 degrees F. 2. Uncontrollable pain. 3. Excessive bleeding. 4. Persistent nausea and vomiting. 5. Medication intolerance (nausea, vomiting or rash). * For nausea and vomiting use only clear liquids such as: tea, soda, bouillon until nausea subsides, then gradually increase diet as tolerated. * If you have any concerns or questions, call your surgeon's office. If physician is unavailable and it is an emergency, call 911 or go to the nearest emergency room. . Instructions / Follow-Up Instructions / Follow-Up ACTIVITY RECOMMENDATIONS: * Light activities. * Mild irritation and blurred vision are common for the first few days. * You may walk outside, read, watch television. * Redness around the white part of the eye is common. MEDICATIONS: Resume previous medications unless instructed otherwise by your surgeon. * Take white Diamox (Acetazolamide) tablet at 1 pm today. Start all eye drops at 1 pm today: * Eye drops (today and tomorrow): Prednisone - one drop in operative eye every 3 hours while awake Ofloxacin - one drop in operative eye every 3 hours while awake SPECIAL CARE INSTRUCTIONS: * Tape plastic shield over eye to sleep at night. Call your doctor at with any concerns or problems. FOLLOW UP VISIT: Follow-up with Dr Velazco at [place] office as scheduled. Diet Recommendations Home Diet: no limitations Procedures Procedures Performed: Right Cataract Phacoemulsification With Intraocular Lens Implant Pending Studies Studies pending at discharge: no Medical Emergencies . Who to Call and When: Medical Emergencies: If at any time you feel your situation is an emergency, please call 911 immediately. . Non-Emergent Contact Non-Emergency issues call your: Fisheries Enforcement Officer Call Non-Emergent contact if: your pain is not controlled [phone] . . "Provider Documentation" section prepared by Dani Velazco. .
--- NOTE | 2017-02-10 07:21 | [facility] Operative Report ---
Operative Report Date of Service Feb 10, 2017. Operative Report 1. PREOPERATIVE DIAGNOSIS: Pre Senile nuclear cataract, right eye. 2. POSTOPERATIVE DIAGNOSIS: Pre Senile nuclear cataract, right eye. 3. PROCEDURE: Phacoemulsification of right cataract with posterior chamber lens implant, type Bausch & Lomb, model MX60, power +19.0 diopters. ANESTHESIA: Local standby. SURGEON: Dr. Velazco. COMPLICATIONS: None. OPERATING TIME: 10 minutes. 4. OPERATION AND FINDINGS: DESCRIPTION OF PROCEDURE: The right pupil was dilated. The anesthetic was administered using a topical technique. The right eye was prepped and draped. A speculum was placed. A clear corneal incision was formed. The chamber was filled with Amvisc Plus and Endocoat. Epinephrine solution was used. A paracentesis was placed. A capsulorrhexis was performed. The nucleus was hydrodissected. The lens was removed with phacoemulsification. Time was 4.41 seconds. The aspiration unit was used to remove the cortex. The capsule was filled with Amvisc Plus. The lens implant was folded and placed into the capsule. The incision was hydrated. The Amvisc was aspirated. The wound was secure. The chamber was deep. The pupil was round. Brimonidine, TobraDex ointment and Vigamox solution were placed. The speculum was removed. The patient was returned to the Recovery Room in stable condition. I attest to the content of the Intraoperative Record and any orders documented therein. Any exceptions are noted below. The scribe's documentation has been prepared in my presence, under my direction and personally reviewed by me in its entirety. I confirm that the note above accurately reflects all work, treatment, procedures, and medical decision making performed by me. I personally scribed for Dani Velazco M.D. (ANAT) on 02/10/17 at 07:21. Electronically submitted by Graciela Horne ([email or web address]).
[2017-02-10 07:24] VITALS: TEMP 37
--- NOTE | 2017-02-10 07:47 | Anesthesia Progress Nt - [facility] ---
Anesthesia Post Op Note Date & Time Feb 10, 2017 at 07:46 Vital Signs Pain Intensity: 0 Vital Signs Past 12 Hours Date Time Temp Pulse Resp B/P (MAP) Pulse Ox O2 Delivery O2 Flow Rate FiO2 02/10/17 07:24 37.0 85 18 100/65 (77) 99 Room Air 02/10/17 06:34 36.9 88 16 94/64 (74) 100 Room Air Notes Mental Status: alert / awake / arousable, participated in evaluation Pt Amnestic to Procedure: Yes Nausea / Vomiting: adequately controlled Pain: adequately controlled Airway Patency, RR, SpO2: stable & adequate BP & HR: stable & adequate Hydration State: stable & adequate Anesthetic Complications: no major complications apparent
[2017-02-10 07:48] VITALS: BP 90/60; PULSE 80; O2SAT 100
== END | disposition home or self-care (01) ==
LOC: X.SURG 06:12
PROVIDERS: ATTEND Specialist
DX: H26.8 Other specified cataract (principal); E11.9 Type 2 diabetes mellitus without complications; Z79.4 Long term (current) use of insulin; I10 Essential (primary) hypertension

== ENCOUNTER → 2017-02-24 | Day surgery (SDC) | payer OTHER ==
[2017-02-22 10:01] VITALS: Ht 172.7 cm; Wt 63.6 kg
[~2017-02-24] VITALS: Ht 172.7 cm; Wt 63.6 kg
[~2017-02-24] MED LIST changes: +BETAXOLOL HCL 0.25% OP SUSP PER DROP CHARGE OPL SCH; -BETAXOLOL HCL 0.25% OP SUSP PER DROP CHARGE OPR SCH; +LIDOCAINE 4% OP SOLN DROP CHARGE OPL SCH; -LIDOCAINE 4% OP SOLN DROP CHARGE OPR SCH; +PROPARACAINE 0.5% OP SOLN PER DROP CHARGE OPL SCH; -PROPARACAINE 0.5% OP SOLN PER DROP CHARGE OPR SCH
[2017-02-24] MEDS: PHENYLEPHRINE HCL 2.5% OP SOLN PER DROP CHARGE OPL SCH ×2 (09:23→09:28)
[2017-02-24] MEDS: TROPICAMIDE 1% OP SOLN PER DROP CHARGE OPL SCH ×2 (09:24→09:29)
[2017-02-24] MEDS: CYCLOPENTOLATE HCL 1% OP SOLN PER DROP CHARGE OPL SCH ×2 (09:25→09:30)
[2017-02-24] MEDS: MOXIFLOXACIN OPH SOLN PER DROP CHARGE OPL SCH ×2 (09:25→09:35)
--- NOTE | 2017-02-24 10:15 | Discharge Instructions-SurgCtr ---
Discharge Instructions Date of Service Feb 24, 2017. Visit Reason for Visit: Cataract Left Eye Discharge Discharge Diagnosis / Problem: lens implant left eye Discharge Goals Goal(s): Improve function Medications Stopped Medications Name(s): METFORMIN STOPPED Wednesday02-21-17 Activity Recommendations Activity Limitations: resume your previous activity Lifting Limitations: no more than 10 pounds Exercise/Sports Limitations: gradually increase as tolerated May Resume Sexual Activity: when tolerated Shower/Bathe: tomorrow Driving or Machine Use: resume 1 day after discharge Anesthesia . Post Anesthesia Instructions: If you have had General Anesthesia or IV Sedation: * Do not drive today. * Resume driving when surgeon permits. * Do not make important decisions or sign legal documents today. * Call surgeon for: 1. Temperature elevations greater than 101 degrees F. 2. Uncontrollable pain. 3. Excessive bleeding. 4. Persistent nausea and vomiting. 5. Medication intolerance (nausea, vomiting or rash). * For nausea and vomiting use only clear liquids such as: tea, soda, bouillon until nausea subsides, then gradually increase diet as tolerated. * If you have any concerns or questions, call your surgeon's office. If physician is unavailable and it is an emergency, call 911 or go to the nearest emergency room. . Instructions / Follow-Up Instructions / Follow-Up ACTIVITY RECOMMENDATIONS: * Light activities. * Mild irritation and blurred vision are common for the first few days. * You may walk outside, read, watch television. * Redness around the white part of the eye is common. MEDICATIONS: Resume previous medications unless instructed otherwise by your surgeon. * Take white Diamox (Acetazolamide) tablet at 1 pm today. Start all eye drops at 1 pm today: * Eye drops (today and tomorrow): Prednisone - one drop in operative eye every 3 hours while awake Ofloxacin - one drop in operative eye every 3 hours while awake SPECIAL CARE INSTRUCTIONS: * Tape plastic shield over eye to sleep at night. Call your doctor at with any concerns or problems. FOLLOW UP VISIT: Follow-up with Dr Velazco at [place] office as scheduled. Diet Recommendations Home Diet: no limitations Procedures Procedures Performed: cataract extraction with lens implant Pending Studies Studies pending at discharge: no Medical Emergencies . Who to Call and When: Medical Emergencies: If at any time you feel your situation is an emergency, please call 911 immediately. . Non-Emergent Contact Non-Emergency issues call your: Mill Crane Operator Call Non-Emergent contact if: your pain is not controlled [phone] . . "Provider Documentation" section prepared by Dani Velazco. .
[2017-02-24 10:19] VITALS: TEMP 36.6
--- NOTE | 2017-02-24 10:19 | [facility] Operative Report ---
Operative Report Date of Service Feb 24, 2017. Operative Report 1. PREOPERATIVE DIAGNOSIS: Pre Senile nuclear cataract, left eye. 2. POSTOPERATIVE DIAGNOSIS: Pre Senile nuclear cataract, left eye. 3. PROCEDURE: Phacoemulsification of left cataract with posterior chamber lens implant, type Bausch & Lomb, model MX60, power +19.0 diopters. ANESTHESIA: Local standby. SURGEON: Dr. Velazco. COMPLICATIONS: None. OPERATING TIME: 10 minutes. 4. OPERATION AND FINDINGS: DESCRIPTION OF PROCEDURE: The left pupil was dilated. The anesthetic was administered using a topical technique. The left eye was prepped and draped. A speculum was placed. A clear corneal incision was formed. The chamber was filled with Amvisc Plus and Endocoat. Epinephrine solution was used. A paracentesis was placed. A capsulorrhexis was performed. The nucleus was hydrodissected. The lens was removed with phacoemulsification. Time was 3.44 seconds. The aspiration unit was used to remove the cortex. The capsule was filled with Amvisc Plus. The lens implant was folded and placed into the capsule. The incision was hydrated. The Amvisc was aspirated. The wound was secure. The chamber was deep. The pupil was round. Brimonidine, TobraDex ointment and Vigamox solution were placed. The speculum was removed. The patient was returned to the Recovery Room in stable condition. I attest to the content of the Intraoperative Record and any orders documented therein. Any exceptions are noted below. The scribe's documentation has been prepared in my presence, under my direction and personally reviewed by me in its entirety. I confirm that the note above accurately reflects all work, treatment, procedures, and medical decision making performed by me. I personally scribed for Dani Velazco M.D. (ANAT) on 02/24/17 at 10:19. Electronically submitted by Graciela Horne ([email or web address]).
[2017-02-24 10:50] VITALS: BP 107/71; PULSE 83; O2SAT 100
--- NOTE | 2017-02-24 11:06 | Anesthesia Progress Nt - [facility] ---
Anesthesia Post Op Note Date & Time Feb 24, 2017 at 11:06 Vital Signs Pain Intensity: 0 Vital Signs Past 12 Hours Date Time Temp Pulse Resp B/P (MAP) Pulse Ox O2 Delivery O2 Flow Rate FiO2 02/24/17 10:50 83 20 107/71 (83) 100 Room Air 02/24/17 10:19 36.6 74 16 103/69 (80) 100 Room Air 02/24/17 09:18 36.4 97 16 113/73 (86) 98 Room Air Notes Mental Status: alert / awake / arousable, participated in evaluation Pt Amnestic to Procedure: Yes Nausea / Vomiting: adequately controlled Pain: adequately controlled Airway Patency, RR, SpO2: stable & adequate BP & HR: stable & adequate Hydration State: stable & adequate Anesthetic Complications: no major complications apparent
== END | disposition home or self-care (01) ==
LOC: X.SURG 08:53
PROVIDERS: ATTEND Specialist
DX: H25.12 Age-related nuclear cataract, left eye (principal); E11.9 Type 2 diabetes mellitus without complications; I51.9 Heart disease, unspecified; Z79.84 Long term (current) use of oral hypoglycemic drugs; Z79.899 Other long term (current) drug therapy

== ENCOUNTER → 2017-03-05 | Outpatient (CLI) | payer OTHER ==
[~2017-03-05] MED LIST changes: -500ML BSS 0.3ML EPI 1:1000PF IRRIG ONE; -ACETAMINOPHEN 325 MG TAB PO PRN; -AMVISC PLUS 0.8ML SYRINGE INT OCU ONE; -ATROPINE SULFATE 0.1 MG/ML 5ML SYR IV PRN; -AcetaZOLAMIDE 250 MG TAB PO SCH; -BETAXOLOL HCL 0.25% OP SUSP PER DROP CHARGE OPL SCH; -BRIMONIDINE TART 0.2% OP SOLN PER DROP CHARGE ONE; -BRIMONIDINE TARTRATE 0.2% 5ML ONE; -BSS FLUSH ONE; -ENDOCOAT 0.85ML SYRINGE INT OCU ONE; -EpHEDrine SULFATE INJ 50 MG/ML AMP IV PRN; -EpINEphrine INJ 1MG/ML AMP 1 MG/ML AMP ONE; -LACTATED RINGER'S 1000ML 500 ML IV SCH; -LIDOCAINE 4% OP SOLN DROP CHARGE ONE; -LIDOCAINE 4% OP SOLN DROP CHARGE OPL SCH; -LIDOCAINE HCL 1% MPF 2 ML VIAL ONE; -MIDAZOLAM HCL 1 MG/ML 2ML VIAL ONE; -MIX: 4ML BSS 1ML EPI 1:1000 PF INSTIL ONE; -MOXIFLOXACIN OPH SOLN PER DROP CHARGE ONE; -OCUCOAT 1 ML SOLN IO ONE; -POVIDONE-IODINE OP SOLN 30 ML BTL ONE; -PROPARACAINE 0.5% OP SOLN PER DROP CHARGE OPL SCH; -TOBRAMYCIN/DEXAMETHASONE OPH OINT PER APPLN CHARGE ONE
[2017-03-05 10:31] LABS: BASO % 0.5 %; BASO ABS # 0.02 K/uL (0-0.2); COMPLETE YES; EOS % 1.3 %; HEMATOCRIT 33.9 % (37-47); IG% 0.3 %; LYMPH % 31.3 %; LYMPH ABS # 1.23 K/uL (1.2-3.4); MEAN CELL VOLUME 81.5 fL (80-100); MEAN CORPUSCULAR HEMOGLOBIN 26.7 pg (25-34); MEAN CORPUSCULAR HGB CONC 32.7 g/dl (32-36); MEAN PLATELET VOLUME 9.5 fL (7.4-10.4); MONO % 7.1 %; NEUT % 59.5 %; PLATELET COUNT 174 K/uL (130-400); RED BLOOD COUNT 4.16 M/uL (4.2-5.4); WHITE BLOOD COUNT 3.93 K/uL (4.8-10.8)
[2017-03-05 10:59] LABS: ALT/SGPT 23 U/L (12-78); AST/SGOT 23 U/L (15-37); BLOOD UREA NITROGEN 28 mg/dl (7-18); BUN/CREATININE RATIO 23.5 (10-20); CALCIUM 8.4 mg/dl (8.5-10.1); CARBON DIOXIDE 27 mmol/L (21-32); CHLORIDE 111 mmol/L (98-107); GLUCOSE 85 mg/dl (70-99); POTASSIUM 3.9 mmol/L (3.5-5.1); SODIUM 143 mmol/L (136-145)
[2017-03-05 11:01] LABS: ALB/GLOB RATIO 0.9 (0.9-2); ALKALINE PHOSPHATASE 54 U/L (45-117)
[2017-03-10 23:40] LABS: LSP % CELLS ANALYZED CD4 8 % (30-61); LSP ABSOLUTE CT CD4 84 cells/uL (490-1740); LSP LYMPHOCYTES ABSOLUTE 986 cells/uL (850-3900)
== END | disposition home or self-care (01) ==
LOC: C.LAB1850 09:33
PROVIDERS: ATTEND Internal Medicine Infectious Disease
DX: B20 Human immunodeficiency virus [HIV] disease (principal)

== ENCOUNTER → 2017-05-31 | Outpatient (CLI) | payer OTHER ==
[2017-05-31 12:34] LABS: HEMATOCRIT 35.1 % (37-47); HEMOGLOBIN 11.2 g/dL (12.0-16.0); MEAN CELL VOLUME 84.4 fL (80-100); MEAN CORPUSCULAR HEMOGLOBIN 26.9 pg (25-34); MEAN CORPUSCULAR HGB CONC 31.9 g/dl (32-36); MEAN PLATELET VOLUME 8.9 fL (7.4-10.4); PLATELET COUNT 195 K/uL (130-400); RED CELL DISTRIBUTION WIDTH CV 14.5 % (11.5-14.5); RED CELL DISTRIBUTION WIDTH SD 45.2 fL (36.4-46.3); WHITE BLOOD COUNT 1.95 K/uL (4.8-10.8)
[2017-05-31 12:43] LABS: ALBUMIN 3.6 gm/dl (3.4-5.0); ALT/SGPT 18 U/L (12-78); BLOOD UREA NITROGEN 26 mg/dl (7-18); CALCIUM 8.8 mg/dl (8.5-10.1); CARBON DIOXIDE 26 mmol/L (21-32); CHOLESTEROL 112 mg/dl (0-200); CREATININE 1.17 mg/dl (0.60-1.20); GLUCOSE 84 mg/dl (70-99); POTASSIUM 4.5 mmol/L (3.5-5.1); SODIUM 139 mmol/L (136-145)
[2017-05-31 12:46] LABS: ALKALINE PHOSPHATASE 50 U/L (45-117); AST/SGOT 18 U/L (15-37); LDL CHOLESTEROL CALCULATED 50 mg/dl; TOTAL PROTEIN 7.7 gm/dl (6.4-8.2)
[2017-05-31 13:12] LABS: BASO % 1.5 %; BASO ABS # 0.03 K/uL (0-0.2); EOS % 1.5 %; EOS ABS # 0.03 K/uL (0-0.5); LYMPH % 48.2 %; LYMPH ABS # 0.94 K/uL (1.2-3.4); MONO % 10.3 %; NEUT % 38.5 %; NEUT ABS # 0.75 K/uL (1.4-6.5)
[2017-06-01 21:34] LABS: LSP % CELLS ANALYZED CD4 9 % (30-61); LSP ABSOLUTE CT CD4 78 cells/uL (490-1740)
== END | disposition home or self-care (01) ==
LOC: C.LAB1850 10:33
PROVIDERS: ATTEND Internal Medicine Infectious Disease
DX: B20 Human immunodeficiency virus [HIV] disease (principal)

== ENCOUNTER 2020-02-22 12:23 | Inpatient (IN) ==
[2020-02-22 12:57] LABS: Appearance Urine Cloudy (Clear); Bacteria Urine Automated 4+ (Negative); Bilirubin Urine Negative (Negative); Blood Urine 1+ (Negative); Color Urine Orange; Glucose Urine UA 3+ (Negative); Ketones Urine Negative (Negative); Leukocyte Esterase Urine 2+ (Negative); Nitrite Urine Negative (Negative); Protein Urine Trace (Negative); Urobilinogen Urine Negative (Negative); WBC Urine Automated >30 /hpf (0-5); pH Urine 5.5 (4.5-7.5)
[2020-02-22] MEDS ORDERED: CIPROFLOXACIN / D5W 400 MG/200 ML BAG IV STA (13:15)
[2020-02-22 13:22] LABS: Basophils # (auto) 0.01 K/uL (0-0.2); Basophils % (auto) 0.2 %; Hematocrit (blood only) 37.5 % (37-47); Hemoglobin 11.9 g/dL (12.0-16.0); Immature Granulocytes # (auto) 0.04 K/uL (0.00-0.02); Immature Granulocytes % (auto) 0.6 %; Lymphocytes # (auto) 0.46 K/uL (1.2-3.4); Lymphocytes % (auto) 7.3 %; Mean Corpuscular Hemoglobin 30.7 pg (25-34); Mean Corpuscular Hgb Conc 31.7 g/dL (32-36); Mean Corpuscular Volume 96.9 fL (80-100); Mean Platelet Volume 9.3 fL (7.4-10.4); Monocytes # (auto) 0.05 K/uL (0.11-0.59); Monocytes % (auto) 0.8 %; Neutrophils # (auto) 5.78 K/uL (1.4-6.5); Neutrophils % (auto) 91.1 %; Platelet Count 250 K/uL (130-400); RDW Standard Deviation 49.9 fL (36.4-46.3); Red Blood Count 3.87 M/uL (4.2-5.4); White Blood Count 6.34 K/uL (4.8-10.8)
[2020-02-22] MEDS ORDERED: SODIUM CHLORIDE 0.9% 1000ML 1,000 ML IV ONE (13:41)
[2020-02-22] MEDS ORDERED: NovoLIN-R INSULIN PER UNIT CHARGE SC STA (13:47)
[2020-02-22 13:58] LABS: Albumin Globulin Ratio 0.8 (0.9-2); Albumin Level 3.6 gm/dl (3.4-5.0); BUN Creatinine Ratio 22.2 (10-20); Bilirubin,Total 0.4 mg/dl (0.2-1); Calcium 8.6 mg/dl (8.5-10.1); Creatinine Clr Calc Pharmacy 49.4 ml/min; Est GFR (African American) 49.2; Est GFR (Non-African American) 42.4; Globulin 4.4 gm/dl (2.5-4.0)
[2020-02-22 14:16] LABS: Beta-Hydroxybutyrate 1.28 mg/dl (0.2-2.81)
--- NOTE | 2020-02-22 14:29 | Emergency Department Note ---
History of Present Illness General Chief complaint: Hyperglycemia Time Seen by Provider: 02/22/20 12:56 Source: patient Mode of arrival: ambulatory Limitations: no limitations History of Present Illness Provider complaint: Hyperglycemia Maximum Pain Intensity: 0 This is a 59-year-old female who presents to the ED with a chief complaint of hyperglycemia. The patient was recommended by her case therapist to come in for medical evaluation. The patient did receive a steroid injection in her right knee earlier today for some chronic knee problems. She also has history of a left [id number] amputation. The patient reports a history of HIV and diabetes. She has had some increased falls related to her knee issues recently. She also reports some chronic urinary incontinence. The patient's personal case therapist, Rik Derrek, feels that she would benefit from being placed in a personal snf. The patient denies any additional complaints at this time. She currently is living in the [facility] since November. Home Medications Medication Instructions Recorded Confirmed Type amlodipine 5 mg PO DAILY 06/07/18 04/14/19 History risperidone 0.5 mg PO BID 06/07/18 04/14/19 History acetaminophen 325 mg tablet 650 mg PO DAILY PRN tab 11/11/18 04/14/19 History buspirone 10 mg tablet 10 mg PO TID 11/11/18 04/14/19 History clonazepam 0.5 mg tablet 0.5 mg PO BID PRN 11/11/18 04/14/19 History fluoxetine 40 mg capsule 40 mg PO DAILY cap 11/11/18 04/14/19 History metformin 1,000 mg tablet,extended 1,000 mg PO BID tab 11/11/18 04/14/19 History release 24hr nitroglycerin 0.4 mg sublingual 0.4 mg SL .COMPLEX tab 11/11/18 04/14/19 History tablet oxycodone-acetaminophen 5 mg-325 1 tab PO Q6H PRN tab 11/11/18 04/14/19 History mg tablet dolutegravir 50 mg tablet 50 mg PO DAILY #30 tab 07/10/19 07/10/19 Rx emtricitabine 200 mg-tenofovir 1 tab PO DAILY #30 tab 07/10/19 07/10/19 Rx alafenamide fumarate 25 mg tablet Allergies Allergy/AdvReac Type Severity Reaction Status Date / Time clams Allergy Severe HIVES Unverified 04/14/19 09:58 ceftriaxone Allergy Intermediate HIVES, Rash Verified 04/14/19 09:58 Penicillins Allergy Intermediate body gets Verified 04/14/19 09:58 red vancomycin AdvReac Mild RED MAN Verified 04/14/19 09:58 SYNDROME Past Med/Surg History Medical History (Updated 02/22/20 @ 14:53 by Luke Combs DO) Acute venous thrombosis Chronic anemia TINO (generalized anxiety disorder) Surgical History History of carpal tunnel release of both wrists Social History Smoking Status: Never smoker Preferred Language: Sammarinese Feels Safe at Home: Yes Review of Systems A total of 10 systems reviewed and were otherwise negative Physical Exam Vital Signs Vital Signs - 24 hr 02/22/20 12:36 02/22/20 12:38 02/22/20 13:02 Temperature 37.3 C Temperature Source Oral Pulse Rate 92 H 95 H 92 H Respiratory Rate 24 20 21 Respiratory Effort / Characteristics Non-Labored Spontaneous Respiratory Depth Normal Respiratory Pattern Regular Blood Pressure 142/99 H 141/86 H 137/85 Blood Pressure Mean 108 104 117 Pulse Oximetry 96 97 94 Oxygen Delivery Method Room Air Sepsis Recent Fever Within 48 Hours No Sepsis New/Unexplained Change in Mental Status No Sepsis Action Taken by Nursing No Action Required 02/22/20 13:31 02/22/20 14:00 02/22/20 14:31 Temperature Temperature Source Pulse Rate 93 H 93 H 97 H Respiratory Rate 24 21 19 Respiratory Effort / Characteristics Respiratory Depth Respiratory Pattern Blood Pressure 167/100 H 142/96 H 175/97 H Blood Pressure Mean 122 102 113 Pulse Oximetry 95 93 94 Oxygen Delivery Method Sepsis Recent Fever Within 48 Hours Sepsis New/Unexplained Change in Mental Status Sepsis Action Taken by Nursing CONSTITUTIONAL/VITAL SIGNS: Reviewed / noted above. GENERAL: Non-toxic in appearance. INTEGUMENTARY: Warm, dry, and [place]. HEAD: Normocephalic. EYES: without scleral icterus or trauma. ENT/OROPHARYNX: clear and moist. LYMPHADENOPATHY/NECK: Is supple without lymphadenopathy or meningismus. RESPIRATORY: Lungs clear and equal. CARDIOVASCULAR: Regular rate and rhythm. GI/ABDOMEN: Soft and nontender. No organomegaly or pulsatile mass. No rebound or guarding. Normal bowel sounds. EXTREMITIES: Warm and well perfused. Left AKA. BACK: No CVA tenderness. NEUROLOGICAL: Intact without focal deficits. PSYCHIATRIC: normal affect. MUSCULOSKELETAL: Normally developed with good muscle tone. TRIAGE NURSING DOCUMENTATION REVIEWED. Course Administered Medications Ciprofloxacin (Cipro / D5w) 400 mg in 200 mls @ 100 mls/hr IV NOW STA; Protocol Stop: 02/22/20 15:14 Last Admin: 02/22/20 13:23 Dose: 100 mls/hr Documented by: [id number] Sodium Chloride (Nss 1000ml) 1,000 mls @ 999 mls/hr IV .Q1H1M ONE Stop: 02/22/20 14:41 Last Admin: 02/22/20 13:58 Dose: 999 mls/hr Documented by: [id number] Discontinued Medications Insulin Human Regular (Novolin-R Insulin Per Unit Charge) 6 units SC NOW STA Stop: 02/22/20 13:48 Last Admin: 02/22/20 13:59 Dose: 6 units Documented by: [id number] Cosigned by: [id number] Medical Decision Making Differential Diagnosis Differential includes acute coronary syndrome, myocardial infarction, CVA, TIA, anemia, infection, pneumonia, UTI, pyelonephritis, poor nutrition, dehydration, electrolyte disturbance,hypoglycemia. Medical Records Attestation: I reviewed the patient's medical records. Home Medications Current Medication List: was personally reviewed by me Laboratory Data Attestation: I reviewed the patient's lab results. Result diagrams: 02/22/20 13:02 02/22/20 13:02 Lab Results 02/22/20 02/22/20 02/22/20 Range/Units 12:31 12:56 13:02 WBC 6.34 (4.8-10.8) K/uL RBC 3.87 L (4.2-5.4) M/uL Hgb 11.9 L (12.0-16.0) g/dL Hct 37.5 (37-47) % MCV 96.9 (80-100) fL MCH 30.7 (25-34) pg MCHC 31.7 L (32-36) g/dL RDW Std Deviation 49.9 H (36.4-46.3) fL RDW Coeff of [place] 14.0 (11.5-14.5) % Plt Count 250 (130-400) K/uL MPV 9.3 (7.4-10.4) fL Immature Gran % (Auto) 0.6 % Neut % (Auto) 91.1 % Lymph % (Auto) 7.3 % [place] % (Auto) 0.8 % Eos % (Auto) 0.0 % Baso % (Auto) 0.2 % Neut # (Auto) 5.78 (1.4-6.5) K/uL Lymph # (Auto) 0.46 L (1.2-3.4) K/uL [place] # (Auto) 0.05 L (0.11-0.59) K/uL Eos # (Auto) 0.00 (0-0.5) K/uL Baso # (Auto) 0.01 (0-0.2) K/uL Immature Gran # (Auto) 0.04 H (0.00-0.02) K/uL Sodium (136-145) mmol/L Potassium (3.5-5.1) mmol/L Chloride (98-107) mmol/L Carbon Dioxide (21-32) mmol/L Anion Gap (3-11) BUN (7-18) mg/dl Creatinine (0.6-1.2) mg/dl Est Cr Clr Drug Dosing ml/min Est GFR ( Amer) Est GFR (Non-Af Amer) BUN/Creatinine Ratio (10-20) Glucose (70-99) mg/dl POC Glucose 451 H* (70-99) mg/dl Calcium (8.5-10.1) mg/dl Total Bilirubin (0.2-1) mg/dl AST (15-37) U/L ALT (12-78) U/L Alkaline Phosphatase (45-117) U/L Total Protein (6.4-8.2) gm/dl Albumin (3.4-5.0) gm/dl Globulin (2.5-4.0) gm/dl Albumin/Globulin Ratio (0.9-2) Beta-Hydroxybutyric Acd (0.2-2.81) mg/dl Urine Color [place] Urine Appearance Cloudy A (Clear) Urine pH 5.5 (4.5-7.5) Ur Specific [place] 1.020 (1.000-1.030) Urine Protein Trace H (Negative) Urine Glucose (UA) 3+ H (Negative) Urine Ketones Negative (Negative) Urine Blood 1+ H (Negative) Urine Nitrite Negative (Negative) Urine Bilirubin Negative (Negative) Urine Urobilinogen Negative (Negative) Ur Leukocyte Esterase 2+ H (Negative) Urine WBC (Auto) >30 H (0-5) /hpf Urine RBC (Auto) 5-10 H (0-4) /hpf U Hyaline Cast (Auto) 1-5 (0-5) /lpf U Epithel Cells (Auto) 10-20 H (0-5) /lpf Urine Bacteria (Auto) 4+ H (Negative) 02/22/20 02/22/20 Range/Units 13:02 14:01 WBC (4.8-10.8) K/uL RBC (4.2-5.4) M/uL Hgb (12.0-16.0) g/dL Hct (37-47) % MCV (80-100) fL MCH (25-34) pg MCHC (32-36) g/dL RDW Std Deviation (36.4-46.3) fL RDW Coeff of [place] (11.5-14.5) % Plt Count (130-400) K/uL MPV (7.4-10.4) fL Immature Gran % (Auto) % Neut % (Auto) % Lymph % (Auto) % [place] % (Auto) % Eos % (Auto) % Baso % (Auto) % Neut # (Auto) (1.4-6.5) K/uL Lymph # (Auto) (1.2-3.4) K/uL [place] # (Auto) (0.11-0.59) K/uL Eos # (Auto) (0-0.5) K/uL Baso # (Auto) (0-0.2) K/uL Immature Gran # (Auto) (0.00-0.02) K/uL Sodium 138 (136-145) mmol/L Potassium 5.0 (3.5-5.1) mmol/L Chloride 110 H (98-107) mmol/L Carbon Dioxide 21 (21-32) mmol/L Anion Gap 7.0 (3-11) BUN 30 H (7-18) mg/dl Creatinine 1.37 H (0.6-1.2) mg/dl Est Cr Clr Drug Dosing 49.4 ml/min Est GFR ( Amer) 49.2 Est GFR (Non-Af Amer) 42.4 BUN/Creatinine Ratio 22.2 H (10-20) Glucose 440 H* (70-99) mg/dl POC Glucose 414 H* (70-99) mg/dl Calcium 8.6 (8.5-10.1) mg/dl Total Bilirubin 0.4 (0.2-1) mg/dl AST 18 (15-37) U/L ALT 24 (12-78) U/L Alkaline Phosphatase 120 H (45-117) U/L Total Protein 8.0 (6.4-8.2) gm/dl Albumin 3.6 (3.4-5.0) gm/dl Globulin 4.4 H (2.5-4.0) gm/dl Albumin/Globulin Ratio 0.8 L (0.9-2) Beta-Hydroxybutyric Acd 1.28 (0.2-2.81) mg/dl Urine Color Urine Appearance (Clear) Urine pH (4.5-7.5) Ur Specific [place] (1.000-1.030) Urine Protein (Negative) Urine Glucose (UA) (Negative) Urine Ketones (Negative) Urine Blood (Negative) Urine Nitrite (Negative) Urine Bilirubin (Negative) Urine Urobilinogen (Negative) Ur Leukocyte Esterase (Negative) Urine WBC (Auto) (0-5) /hpf Urine RBC (Auto) (0-4) /hpf U Hyaline Cast (Auto) (0-5) /lpf U Epithel Cells (Auto) (0-5) /lpf Urine Bacteria (Auto) (Negative) MDM Narrative The patient is a 59-year-old female who presents to the ED with a chief complaint of hyperglycemia as well as some generalized weakness and increasing falls over the past week or so. She has had urinary incontinence. She got a steroid injection this morning from Ortho. She denies any nausea or vomiting. Other details are above. The patient's case therapist wanted her to come in for a medical evaluation and possible placement. The Adult Protective Services also contacted our case therapist with concerns about the patient's wellbeing and not being able to take care of herself. The patient's exam as noted above. She does have a history of left BKA. The patient's urinalysis is suggestive of infection. Her glucose is 440. The BUN is 30 and creatinine is 1.37. CBC was unremarkable. The patient was given IV fluids as well as some subcu insulin and IV Cipro. She will be seen by the hospitalist for further inpatient evaluation and care. Impression & Plan Acute hyperglycemia, UTI (urinary tract infection), Acute dehydration, Falls, GEGE (acute kidney injury) Discharge Plan Visit Data Chief Complaint: Hyperglycemia ED Provider: Luke Combs ED Midlevel Provider: Cuate Soto Discharge Problem: Acute hyperglycemia, UTI (urinary tract infection), Acute dehydration, Falls, GEGE (acute kidney injury) Patient Disposition: Being Evaluated by Hospitalist Forms Stand Alone Forms: [facility] Prescriptions Prescriptions: No Action acetaminophen 325 mg tablet 650 mg PO DAILY PRNRF: 0 fluoxetine 40 mg capsule 40 mg PO DAILY RF: 0 metformin 1,000 mg tablet extended release 24hr 1,000 mg PO BID RF: 0 nitroglycerin 0.4 mg tablet, sublingual 0.4 mg SL .COMPLEX RF: 0 oxycodone-acetaminophen 5-325 mg tablet 1 tab PO Q6H PRNRF: 0 [place]iv[place] 50 mg tablet 50 mg PO DAILY Qty: 30 RF: 3 Descovy 200-25 mg tablet 1 tab PO DAILY Qty: 30 RF: 3 amlodipine 5 mg tablet 5 mg PO DAILY RF: 0 risperidone 0.5 mg tablet 0.5 mg PO BID RF: 0 buspirone 10 mg tablet 10 mg PO TID RF: 0 clonazepam 0.5 mg tablet 0.5 mg PO BID PRNRF: 0 Referrals Referrals: Theron Springer DO [Primary Care Provider] - Discharge Problem: UTI (urinary tract infection) Qualifiers: Urinary tract infection type: acute cystitis Hematuria presence: with hematuria Qualified Code(s): N30.01 - Acute cystitis with hematuria
[2020-02-22] MEDS ORDERED: PHARMACY GLYCEMIC MGMT CONSULT STA (15:37)
[2020-02-22] MEDS ORDERED: POTASSIUM CHLORIDE 20 MEQ in SODIUM CHLORIDE 0.45 % 1,000 ML IV SCH (15:37)
--- NOTE | 2020-02-22 15:38 | History & Physical Report ---
Date of Service February 22, 2020 Assessment & Plan (1) Acute hyperglycemia: (2) GEGE (acute kidney injury): (3) Acute dehydration: (4) UTI (urinary tract infection): (5) Falls: (6) Hypertension: (7) HIV disease: (8) Chronic anemia: (9) Diabetic peripheral neuropathy associated with type 2 diabetes mellitus: (10) TINO (generalized anxiety disorder): (11) History of diabetic ulcer of foot: (12) Major depressive disorder, recurrent severe without psychotic features: Patient has dehydration secondary to acute hyperglycemia with blood sugars in the 400s, will have pharmacy monitor her blood sugars, she has GEGE secondary to dehydration with contributing hyperglycemia and urinary tract infection making her weak and having falls. We will treat her with IV antibiotics and IV fluids, monitor her daily labs, case management for placement and adult protective services for evaluation. PT TORRIE lyn, she does use a wheelchair and she has a prosthetic for her left leg with her. Will continue her outpatient medications where appropriate. History of Present Illness 59-year-old female with a past medical history of acute kidney injury, hypertension, loss of sensation of the right foot, left AKA secondary to multiple knee infections after knee replacement, HIV, chronic anemia, diabetic peripheral neuropathy, generalized anxiety disorder, history of diabetic foot ulcer, major depression disorder, and suicidal ideation, who presents to the ED with a chief complaint of hyperglycemia. The patient was recommended by her case fitter to come in for medical evaluation. The patient did receive a steroid injection in her right knee earlier today for some chronic knee problems. She also has history of a left [id number] amputation. The patient reports a history of HIV and diabetes. She has had some increased falls related to her knee issues recently. She also reports some chronic urinary incontinence. The patient's personal case fitter, Rik Anglin, feels that she would benefit from being placed in a personal correction. The patient denies any additional complaints at this time. She currently is living in the [facility] since November. While in the ER she was found to have a blood sugar of 400, a urinary tract infection, and labs reveal dehydration. Past medical historyacute kidney injury, hypertension, left AKA, knee infections, HIV, chronic anemia, diabetes type 2, diabetic peripheral neuropathy, generalized anxiety disorder, history of diabetic foot ulcer, major depression disorder, history of suicide ideation. Past medical historyleft AKA, bilateral carpal tunnel release Social [facility] Family historyreviewed and noncontributory to present illness Primary Care Provider: Theron Springer DO Allergies Allergy/AdvReac Type Severity Reaction Status Date / Time clams Allergy Severe HIVES Unverified 02/22/20 15:06 ceftriaxone Allergy Intermediate HIVES, Rash Verified 02/22/20 15:06 Penicillins Allergy Intermediate body gets Verified 02/22/20 15:06 red vancomycin AdvReac Mild RED MAN Verified 02/22/20 15:06 SYNDROME Home Medications Medication Instructions Recorded Confirmed Type risperidone 0.5 mg PO BID 06/07/18 02/22/20 History clonazepam 0.5 mg tablet 0.5 mg PO BID PRN 11/11/18 02/22/20 History nitroglycerin 0.4 mg sublingual 0.4 mg SL .COMPLEX tab 11/11/18 02/22/20 History tablet buspirone 7.5 mg PO BID 02/22/20 02/22/20 History dolutegravir [Tivicay] 50 mg PO HS 02/22/20 02/22/20 History emtricitabine-tenofovir alafen 1 tab PO HS 02/22/20 02/22/20 History [Descovy] fluvoxamine 100 mg PO BID 02/22/20 02/22/20 History hydroxyzine HCl 50 mg PO TID 02/22/20 02/22/20 History metformin 500 mg PO BID 02/22/20 02/22/20 History Past Med/Surg History Medical History (Updated 02/22/20 @ 14:53 by Luke Combs DO) Acute venous thrombosis Chronic anemia TINO (generalized anxiety disorder) Surgical History History of carpal tunnel release of both wrists Social History Smoking Status: Never smoker Preferred Language: Kazakh Feels Safe at Home: Yes Physical Exam Physical Exam: ROS-No Headache, No Visual Changes, No Nausea, No Vomiting, No Fever, No Chills, No Neck Pain or Stiffness, No Chest Pain, No Palpitations, No SOB, No PEDRAZA, No Cough, No Sputum, No Wheezing, No Abdominal Pain, No Diarrhea, No Hematemesis, No Hemoptysis, No Unexpected Weight Loss, No Flank pain, No Melena, No Hematochezia, No Frequency, No Urgency, No Burning, No Hematuria, No Rashes, No Diaphoresis. Appetite is Normal, complains of falls, complains of urinary incontinence and high blood sugars Physical Exam Gen-AAO x 3, NAD, Afebrile, very pleasant, obese. Head-NCAT, EOMI, PERRLA, Anicteric Sclera, No Posterior Pharyngeal Erythema Neck-Supple, No JVD, No Thyromegaly, No Masses, No LAD, No Bruits Lungs-Clear to Auscultation Bilaterally, No Rales, No Rhonchi, No Wheezing, No Crepitus Chest-No S4, +S1, +S2, No S3, No Murmurs, No Rubs, No Gallops, No Ectopy Abdomen-Soft, Bowel Sounds Present, Non Tender, Non Distended, No Hepatomegaly, No Splenomegaly, No Palpable Masses, No Rebound, No Rigidity, No Guarding Musculoskeletal-Full Range of Motion Bilaterally, No CVAT Extremities-No Cyanosis, No Clubbing, No Edema on the right, left AKA Nuero-Cranial Nerves II-XII grossly intact, Motor WNL, DTRs WNL, Strength WNL, Non Focal Psych-Normal Mood Results & Data Results & Data ([facility]) Vital Signs (Past 12 Hours) Vital Signs Temp Pulse Resp BP Pulse Ox 02/22/20 14:31 97 H 19 175/97 H 94 02/22/20 14:00 93 H 21 142/96 H 93 02/22/20 13:31 93 H 24 167/100 H 95 02/22/20 13:02 92 H 21 137/85 94 02/22/20 12:38 37.3 C 95 H 20 141/86 H 97 02/22/20 12:36 92 H 24 142/99 H 96 Allergies clams Allergy (Severe, Unverified 02/22/20 15:06) HIVES ceftriaxone Allergy (Intermediate, Verified 02/22/20 15:06) HIVES, Rash Penicillins Allergy (Intermediate, Verified 02/22/20 15:06) body gets red vancomycin Adverse Reaction (Mild, Verified 02/22/20 15:06) RED MAN SYNDROME Height/Weight/Isolation Height 5 ft 1 in Weight 103 kg Chemistry 12/10/20 13:02 Sodium 138 Potassium 5.0 Chloride 110 H Carbon Dioxide 21 Anion Gap 7.0 BUN 30 H Creatinine 1.37 H Glucose 440 H* Urinalysis 02/22/20 12:31 Urine Color [employer] Urine Appearance Cloudy A Urine pH 5.5 Ur Specific [place] 1.020 Urine Protein Trace H Urine Glucose (UA) 3+ H Urine Ketones Negative Urine Blood 1+ H Urine Nitrite Negative Urine Bilirubin Negative Microbiology 02/22/20 12:31 Urine,Clean Catch Urine Culture - Pending (1) UTI (urinary tract infection) Hematuria presence: with hematuria Urinary tract infection type: acute cystitis Qualified Code(s): N30.01 - Acute cystitis with hematuria
[2020-02-22] MEDS ORDERED: INSULIN ASPART PER UNIT SC STA (15:42)
[2020-02-22] MEDS ORDERED: PHARMACY GLYCEMIC MGMT CONSULT PRN (15:49)
[2020-02-22] MEDS ORDERED: MAGNESIUM HYDROXIDE SUSP 30 ML UDC PO PRN (17:07)
[2020-02-22] MEDS ORDERED: ALUMINUM/MAGNESIUM SUSP 30 ML UDC PO PRN (17:07)
[2020-02-22] MEDS ORDERED: GLUCOSE 10 TABS/TUBE PO PRN (17:07)
[2020-02-22] MEDS ORDERED: ONDANSETRON INJ 2 MG/ML 2 ML VIAL IV PRN (17:07)
[2020-02-22] MEDS ORDERED: CARBOHYDRATES FOR HYPOGLYCEMIA PO PRN (17:07)
[2020-02-22] MEDS ORDERED: GLUCAGON FOR INJ 1 MG VIAL SQ PRN (17:07)
[2020-02-22] MEDS ORDERED: POLYETHYLENE (MIRALAX) 17 GM PACK PO PRN (17:07)
[2020-02-22] MEDS ORDERED: DEXTROSE 50% 50 ML SYRINGE IV PRN (17:07)
[2020-02-22] MEDS ORDERED: GLUCOSE 40% GEL 15 GM TUBE PO PRN (17:07)
[2020-02-22] MEDS ORDERED: INSULIN GLARGINE SOLOSTAR 100 UNITS/ML 3 ML PEN SC ONE (17:15)
[2020-02-22] MEDS ORDERED: INSULIN ASPART 100 UNITS/ML 3 ML PEN SC SCH (17:45)
[2020-02-22] MEDS: INSULIN ASPART 100 UNITS/ML 3 ML PEN SC SCH ×2 (18:01→20:03)
[2020-02-22] MEDS: SODIUM CHLORIDE 0.45 % 1,000 ML IV SCH (18:03)
[2020-02-22] MEDS: ACETAMINOPHEN 325 MG TAB PO PRN (18:10)
[2020-02-22] MEDS: ENOXAPARIN INJ 40 MG/0.4 ML SYR SQ SCH (20:09)
[2020-02-22] MEDS: busPIRone 7.5 MG TAB PO SCH (20:10)
[2020-02-22] MEDS: risperiDONE 0.5 MG TABLET PO SCH (20:11)
[2020-02-22] MEDS: fluvoxaMINE MALEATE 50 MG TAB PO SCH (20:11)
[2020-02-22] MEDS ORDERED: INSULIN GLARGINE SOLOSTAR 100 UNITS/ML 3 ML PEN SC SCH (21:00)
[2020-02-22] MEDS ORDERED: hydrOXYzine HCl 25 MG TAB PO SCH (21:00)
[2020-02-22 21:07] LABS: BUN Creatinine Ratio 18.7 (10-20); Calcium 8.4 mg/dl (8.5-10.1); Creatinine Clr Calc Pharmacy 45.1 ml/min; Est GFR (African American) 44.1; Potassium 4.5 mmol/L (3.5-5.1)
[2020-02-22] MEDS: DOLUTEGRAVIR SODIUM 50 MG TAB PO SCH (21:27)
[2020-02-22] MEDS: CIPROFLOXACIN / D5W 400 MG/200 ML BAG IV SCH (21:27)
[2020-02-23] MEDS: ACETAMINOPHEN 325 MG TAB PO PRN ×4 (00:23→20:35)
[2020-02-23] MEDS: SODIUM CHLORIDE 0.45 % 1,000 ML IV SCH (01:31)
--- NOTE | 2020-02-23 06:11 | Emergency Department Note ---
ED Visit Note I saw this patient on 02/22/20 and discussed my findings w/ Dr. Torres who has examined the patient independently. Please see his documentation for assessment and plan. . Resident Activity Tracking Resident Involvement: Resident Care Provided Care Provided: Adult ED : UTI (urinary tract infection) Qualifiers: Urinary tract infection type: acute cystitis Hematuria presence: with hematuria Qualified Code(s): N30.01 - Acute cystitis with hematuria
[2020-02-23 06:42] LABS: Hematocrit (blood only) 33.9 % (37-47); Mean Corpuscular Hemoglobin 30.6 pg (25-34); Mean Corpuscular Hgb Conc 32.4 g/dL (32-36); Mean Corpuscular Volume 94.4 fL (80-100); Mean Platelet Volume 9.1 fL (7.4-10.4); Platelet Count 265 K/uL (130-400); RDW Coefficient of Variation 13.9 % (11.5-14.5); RDW Standard Deviation 47.8 fL (36.4-46.3); Red Blood Count 3.59 M/uL (4.2-5.4); White Blood Count 10.05 K/uL (4.8-10.8)
[2020-02-23 08:00] LABS: Estimated Average Glucose 189 mg/dl; Hemoglobin A1C 8.2 % (4.5-5.6)
[2020-02-23] MEDS: SODIUM CHLORIDE 0.9% 1000ML 1,000 ML IV SCH ×2 (08:52→17:48)
[2020-02-23] MEDS: fluvoxaMINE MALEATE 50 MG TAB PO SCH ×2 (08:53→20:32)
[2020-02-23] MEDS: busPIRone 7.5 MG TAB PO SCH ×2 (08:53→20:32)
[2020-02-23] MEDS: risperiDONE 0.5 MG TABLET PO SCH ×2 (08:53→20:33)
[2020-02-23] MEDS: ASPIRIN 81 MG ECTAB PO SCH (08:53)
[2020-02-23] MEDS: ENOXAPARIN INJ 40 MG/0.4 ML SYR SQ SCH ×2 (08:54→20:33)
[2020-02-23] MEDS: INSULIN ASPART 100 UNITS/ML 3 ML PEN SC SCH ×4 (08:58→21:32)
[2020-02-23] MEDS: CIPROFLOXACIN / D5W 400 MG/200 ML BAG IV SCH ×2 (09:00→21:42)
[2020-02-23] MEDS ORDERED: INSULIN GLARGINE SOLOSTAR 100 UNITS/ML 3 ML PEN SC ONE (09:30)
[2020-02-23] MEDS: clonazePAM 0.5 MG TAB PO PRN ×2 (12:35→20:35)
--- NOTE | 2020-02-23 13:44 | Hospitalist Progress Note ---
Date of Service February 23, 2020 Assessment & Plan (1) Acute hyperglycemia: High blood sugar of around 400 is due to receiving steroid injection in the right knee joint 1 day prior to admission Appreciate pharmacy input and recommendation Blood sugar seems to be improving (2) GEGE (acute kidney injury): Likely secondary to dehydration Has been getting cautious amount of intravenous fluids Creatinine is little worse since admission and will monitor PRP and increase the intake of fluid (3) Acute dehydration: (4) UTI (urinary tract infection): UA was suggestive of infection on admission Urine culture is growing gram-negative bacilli, further identification and sensitivities pendin Has been on Cipro and will continue (5) Falls: PT and OT evaluation for possible placement (6) Hypertension: Continue current medications (7) Chronic anemia: (8) Diabetic peripheral neuropathy associated with type 2 diabetes mellitus: (9) Major depressive disorder, recurrent severe without psychotic features: We will continue her outpatient medications DVT prophylaxis Subcu Lovenox CODE STATUS Full Admission and Anticipated Discharge Date Admission Date: February 22, 2020 Subjective 02/23/2020 The patient was seen and examined in medical telemetry unit She has been complaining of pain in the right knee which she was injected with hydrocortisone day before yesterday She does have urinary frequency but no dysuria Denies any other significant symptoms Review of Systems Review of Systems: All systems reviewed and are unremarkable except as noted below Genitourinary: + urinary frequency and + urinary hesitancy Musculoskeletal: + joint pain (Right knee pain and swelling) Physical Exam Physical Exam: Lying in bed comfortably Constitutional: well developed, well nourished and + obese; not ill appearing Eyes: PERRL, conjunctivae normal, anicteric sclerae ENMT: external ear and nose normal, oropharynx normal Neck: trachea midline, no thyromegaly Respiratory: no respiratory distress Auscultation: lungs clear to auscultation bilaterally Cardiovascular: Rate/Rhythm: regular rate and regular rhythm Heart Sounds: + murmur (2/6 over precordium) Extremities: + edema (Trace edema on the right side. Has left AKA) Gastrointestinal (Abdomen): Inspection/Auscultation: normal bowel sounds; abdomen not distended Percussion/Palpation: abdomen soft; abdomen nontender Musculoskeletal: Knee: + deformity (Right knee swelling with tenderness and painful with movement) Neurologic: Alert, awake and oriented x3 Lymphatic: no cervical or axillary lymphadenopathy Results & Data Results & Data ([facility]) Vital Signs (Past 12 Hours) Vital Signs Temp Pulse Pulse Resp BP Pulse Ox 02/23/20 11:46 36.7 C 101 H 20 159/78 H 96 02/23/20 08:06 37.3 C 89 18 129/73 93 02/23/20 07:33 90 02/23/20 04:00 36.9 C 93 H 18 132/78 95 Laboratory Results Short CBC 02/23/20 Range/Units 06:14 WBC 10.05 (4.8-10.8) K/uL Hgb 11.0 L (12.0-16.0) g/dL Hct 33.9 L (37-47) % Plt Count 265 (130-400) K/uL BMP 02/22/20 02/22/20 13:02 20:36 Sodium 138 139 Potassium 5.0 4.5 Chloride 110 H 112 H Carbon Dioxide 21 21 BUN 30 H 28 H Creatinine 1.37 H 1.50 H Glucose 440 H* 250 H Calcium 8.6 8.4 L Liver Function 02/22/20 Range/Units 13:02 Total Bilirubin 0.4 (0.2-1) mg/dl AST 18 (15-37) U/L ALT 24 (12-78) U/L Alkaline Phosphatase 120 H (45-117) U/L Albumin 3.6 (3.4-5.0) gm/dl Medications Administered Current Inpatient Medications Acetaminophen (Acetaminophen 325 Mg Tab) 650 mg PO Q4H PRN PRN Reason: Pain or Fever Stop: 03/23/20 17:06 Last Admin: 02/23/20 08:52 Dose: 650 mg Documented by: Al Hydrox/Mg Hydrox/Simethicone (Aluminum/Magnesium Susp 30 Ml Udc) 15 ml PO Q4H PRN PRN Reason: Dyspepsia Stop: 03/23/20 17:06 Aspirin (Aspirin 81 Mg Ectab) 81 mg PO DAILY [facility] Stop: 03/24/20 08:59 Last Admin: 02/23/20 08:53 Dose: 81 mg Documented by: Buspirone HCl (Buspirone 7.5 Mg Tab) 7.5 mg PO BID [facility] Stop: 03/23/20 20:59 Last Admin: 02/23/20 08:53 Dose: 7.5 mg Documented by: Clonazepam (Clonazepam 0.5 Mg Tab) 0.5 mg PO BID PRN PRN Reason: Anxiety Stop: 03/23/20 17:06 Last Admin: 02/23/20 12:35 Dose: 0.5 mg Documented by: Dextrose (Dextrose 50% 50 Ml Syringe) 25 - 50 ml IV UD PRN; Protocol PRN Reason: Hypoglycemia Protocol Stop: 03/23/20 17:06 Dolutegravir Sodium (Dolutegravir Sodium 50 Mg Tab) 50 mg PO HS [facility] Stop: 03/23/20 20:59 Last Admin: 02/22/20 21:27 Dose: 50 mg Documented by: Enoxaparin Sodium (Enoxaparin Inj 40 Mg/0.4 Ml Syr) 40 mg SQ Q12H [facility] Stop: 03/23/20 20:59 Last Admin: 02/23/20 08:54 Dose: 40 mg Documented by: Fluvoxamine Maleate (Fluvoxamine Maleate 50 Mg Tab) 100 mg PO BID [facility] Stop: 03/23/20 20:59 Last Admin: 02/23/20 08:53 Dose: 100 mg Documented by: Glucagon (Glucagon For Inj 1 Mg Vial) 1 mg SQ UD PRN; Protocol PRN Reason: Hypoglycemia Protocol Stop: 03/23/20 17:06 Glucose (Glucose 40% Gel 15 Gm Tube) 15 - 30 gm PO UD PRN; Protocol PRN Reason: Hypoglycemia Protocol Stop: 03/23/20 17:06 Glucose (Glucose 10 Tabs/Tube) 4 - 8 tabs PO UD PRN; Protocol PRN Reason: Hypoglycemia Protocol Stop: 03/23/20 17:06 Hydroxyzine HCl (Hydroxyzine Hcl 25 Mg Tab) 50 mg PO TID [facility] Stop: 03/23/20 20:59 Ciprofloxacin (Cipro / D5w) 400 mg in 200 mls @ 100 mls/hr IV Q12H ALEKS; Protocol Stop: 02/27/20 21:59 Last Infusion: 02/23/20 11:10 Dose: Infused Documented by: Sodium Chloride (Nss 1000ml) 1,000 mls @ 125 mls/hr IV .Q8H [facility] Stop: 02/24/20 08:44 Last Admin: 02/23/20 08:52 Dose: 125 mls/hr Documented by: Insulin Aspart (Insulin Aspart 100 Units/Ml 3 Ml Pen) 0 units SC ACHS [facility] Stop: 03/23/20 16:59 Last Admin: 02/23/20 12:30 Dose: 1 units Documented by: Magnesium Hydroxide (Magnesium Hydroxide Susp 30 Ml Udc) 30 ml PO Q12H PRN PRN Reason: Constipation Stop: 03/23/20 17:06 Miscellaneous (Carbohydrates For Hypoglycemia ) 15 - 30 gm PO UD PRN PRN Reason: Hypoglycemia Protocol Stop: 03/23/20 17:06 Miscellaneous (Descovy: Order Awaiting Action) 1 ea N/A QS [facility] Stop: 03/24/20 07:59 Last Admin: 02/23/20 07:25 Dose: Not Given Documented by: Miscellaneous Information (Pharmacy Glycemic Mgmt Consult) 1 ea N/A UD PRN; Protocol PRN Reason: Consult Stop: 03/23/20 15:48 Ondansetron HCl (Ondansetron Inj 2 Mg/Ml 2 Ml Vial) 4 mg IV Q6H PRN PRN Reason: Nausea Stop: 03/23/20 17:06 Polyethylene Glycol (Polyethylene (Miralax) 17 Gm Pack) 17 gm PO DAILY PRN PRN Reason: Constipation Stop: 03/23/20 17:06 Risperidone (Risperidone 0.5 Mg Tablet) 0.5 mg PO BID [facility] Stop: 03/23/20 20:59 Last Admin: 02/23/20 08:53 Dose: 0.5 mg Documented by: (1) UTI (urinary tract infection) Hematuria presence: with hematuria Urinary tract infection type: acute cystitis Qualified Code(s): N30.01 - Acute cystitis with hematuria
--- NOTE | 2020-02-23 14:50 | Electrocardiogram Report ---
Test Reason : Blood Pressure : / mmHG Vent. Rate : 091 BPM Atrial Rate : 091 BPM P-R Int : 150 ms QRS Dur : 098 ms QT Int : 372 ms P-R-T Axes : 026 039 030 degrees QTc Int : 457 ms Normal sinus rhythm Normal ECG When compared with ECG of 16-JAN-2015 06:52, Vent. rate has increased BY 30 BPM Confirmed by Dani Hampton ([id number]) on 02/23/2020 2:49:31 PM Referred By: REFERRED SELF Confirmed By:Dani Hampton
--- NOTE | 2020-02-23 15:07 | Pharmacy Report ---
Glycemic Control Consultation - Date of Service February 23, 2020 - Scope Scope: Glycemic Pharmacist consulted for glycemic control and to write orders per [facility] inpatient glycemic control protocol. - Objective Weight: 98 kg Accuchecks BSG (last 24hrs): 02/22/20 02/22/20 02/22/20 15:32 16:29 19:54 Glucose POC Glucose 338 H* 317 H* 317 H* 02/22/20 02/22/20 02/22/20 20:36 20:59 23:21 Glucose 250 H POC Glucose 256 H 236 H 02/23/20 02/23/20 02/23/20 06:01 07:41 11:28 Glucose POC Glucose 188 H 183 H 82 Laboratory Data (last 24hrs): 02/22/20 20:36 Potassium 4.5 Carbon Dioxide 21 Anion Gap 6.0 Creatinine 1.50 H Est Cr Clr Drug Dosing 45.1 HbA1c: Hemoglobin A1c 8.2 % (4.5-5.6) H 02/23/20 06:14 - Recent Pertinent Medications Outpatient Anti-diabetic Regimen: * Metformin 500 mg PO BID * A1c = 8.2% on 02/23/20 The patient received yesterday: * Basal insulin: Lantus 20 units x1 at dinner time * Correctional Insulin: Novolog Correction per scale ACHS Goal Range: Low 110 mg/dL - High 140 mg/dL Correction Factor: 25 mg/dL/unit * Prandial insulin: Per carb ratio of 1 unit per 10 grams CHO consumed * Oral Agents: on hold Risk Factors for Insulin Resistance: * Steroids: none * Infection: on Cipro * IVF: NS @ 125 ml/hr * Recent Surgery: none * Diet: T2DM - Assessment & Plan Assessment & Plan: ASSESSMENT: * 59 y/o F admitted for UTI, hyperglycemia and dehydration. Patient with a history of Type 2 diabetes managed at home on oral Metformin. * Will hold oral agents for admission and utilize SQ basal bolus insulin regimen which is the recommended regimen for inpatient glycemic control. * Will initiate weight based insulin dosing for insulin faustino patient and titrate based on BSG trends. * Patient received 20 units of Lantus yesterday around dinner time. Fasting BSG = 188 today. Lantus 20 units SQ given this AM based on wt and stress factor between 2 and 3. * Post-prandial BSG today was 82 mg/dl. Novolog CR was tightened this AM to 6 but loosened back again. * Added Lantus based on BSG at HS if patient needs it. PLAN FOR INPATIENT GLYCEMIC CONTROL: * Holding outpatient oral diabetes medications * Basal insulin * Lantus 20 units SQ QAM * Lantus 0 -10 units SQ HS based on BSG scale * Bolus insulin: tightened CF * NovoLog per scale ACHS or Q6hrs while NPO * Goal Range: Low 110 mg/dL - High 140 mg/dL * Correction Factor: 20 mg/dL/unit * Nutritional / Prandial insulin per carb ratio of 1 unit per 10 grams CHO consumed * Please note that the plan above was derived based on current level of insulin resistance and hospital stress. These recommendations are appropriate for inpatient admission only. Plan of care upon discharge will need to be reassessed to avoid potential outpatient hypo/hyperglycemia. Thank you.
[2020-02-23] MEDS: DOLUTEGRAVIR SODIUM 50 MG TAB PO SCH (20:33)
[2020-02-23] MEDS ORDERED: INSULIN GLARGINE SOLOSTAR 100 UNITS/ML 3 ML PEN SC SCH (21:00)
[2020-02-24] MEDS: SODIUM CHLORIDE 0.9% 1000ML 1,000 ML IV SCH (01:45)
[2020-02-24] MEDS: ACETAMINOPHEN 325 MG TAB PO PRN ×3 (06:25→20:12)
[2020-02-24 07:28] LABS: Creatinine Clr Calc Pharmacy 58.9 ml/min; Est GFR (African American) 64.1; Est GFR (Non-African American) 55.3
[2020-02-24] MEDS: busPIRone 7.5 MG TAB PO SCH ×2 (07:47→20:13)
[2020-02-24] MEDS: risperiDONE 0.5 MG TABLET PO SCH ×2 (07:47→20:13)
[2020-02-24] MEDS: fluvoxaMINE MALEATE 50 MG TAB PO SCH ×2 (07:47→20:13)
[2020-02-24] MEDS: ASPIRIN 81 MG ECTAB PO SCH (07:47)
[2020-02-24] MEDS: ENOXAPARIN INJ 40 MG/0.4 ML SYR SQ SCH ×2 (07:47→20:13)
[2020-02-24] MEDS: clonazePAM 0.5 MG TAB PO PRN ×2 (07:49→20:12)
[2020-02-24] MEDS: INSULIN ASPART 100 UNITS/ML 3 ML PEN SC SCH ×4 (07:50→20:15)
[2020-02-24] MEDS: INSULIN GLARGINE SOLOSTAR 100 UNITS/ML 3 ML PEN SC SCH (09:41)
[2020-02-24] MEDS: CIPROFLOXACIN / D5W 400 MG/200 ML BAG IV SCH ×2 (09:43→20:15)
--- NOTE | 2020-02-24 13:55 | Hospitalist Progress Note ---
Date of Service February 24, 2020 Assessment & Plan (1) Acute hyperglycemia: High blood sugar of around 400 is due to receiving steroid injection in the right knee joint 1 day prior to admission Appreciate pharmacy input and recommendation Blood sugar seems to be improving (2) GEGE (acute kidney injury): Likely secondary to dehydration Has been getting cautious amount of intravenous fluids Creatinine is little worse since admission and will monitor PRP and increase the intake of fluid Check PRP tomorrow and continue current management Advised to drink more fluid (3) Acute dehydration: As above (4) UTI (urinary tract infection): UA was suggestive of infection on admission Urine culture is growing gram-negative bacilli, further identification and sensitivities pendin Urine culture is growing Klebsiella pneumoniae and that is pansensitive-we will continue current intravenous antibiotic (5) Falls: PT and OT evaluation for possible placement (6) Hypertension: Continue current medications (7) Chronic anemia: (8) Diabetic peripheral neuropathy associated with type 2 diabetes mellitus: (9) Major depressive disorder, recurrent severe without psychotic features: We will continue her outpatient medications DVT prophylaxis Subcu Lovenox CODE STATUS Full Likely discharge on Wednesday or Wednesday Admission and Anticipated Discharge Date Admission Date: February 22, 2020 Subjective 02/23/2020 The patient was seen and examined in medical telemetry unit She has been complaining of pain in the right knee which she was injected with hydrocortisone day before yesterday She does have urinary frequency but no dysuria Denies any other significant symptoms 02/24/2020 The patient was seen and examined in medical telemetry unit She has been feeling a lot better and denies any abdominal discomfort She still complains to have pain in the right knee which goes down to the right leg Review of Systems Review of Systems: All systems reviewed and are unremarkable except as noted below Genitourinary: + urinary frequency and + urinary hesitancy Musculoskeletal: + joint pain (Right knee pain and swelling) Physical Exam Physical Exam: Lying in bed comfortably Constitutional: well developed, well nourished and + obese; not ill appearing Eyes: PERRL, conjunctivae normal, anicteric sclerae ENMT: external ear and nose normal, oropharynx normal Neck: trachea midline, no thyromegaly Respiratory: no respiratory distress Auscultation: lungs clear to auscultation bilaterally Cardiovascular: Rate/Rhythm: regular rate and regular rhythm Heart Sounds: + murmur (2/6 over precordium) Extremities: + edema (Trace edema on the right side. Has left AKA) Gastrointestinal (Abdomen): Inspection/Auscultation: normal bowel sounds; abdomen not distended Percussion/Palpation: abdomen soft; abdomen nontender Musculoskeletal: Knee: + deformity (Right knee swelling with tenderness and painful with movement) Neurologic: Alert awake and oriented x3 Psychiatric: A+Ox3, euthymic affect Lymphatic: no cervical or axillary lymphadenopathy Results & Data Results & Data ([facility]) Vital Signs (Past 12 Hours) Vital Signs Temp Pulse Pulse Resp BP Pulse Ox 02/24/20 12:06 36.6 C 88 18 106/73 93 02/24/20 11:58 36.8 C 78 18 154/89 H 96 02/24/20 10:12 80 02/24/20 06:29 36.6 C 84 20 143/82 H 93 02/24/20 02:51 36.6 C 71 20 131/83 96 Laboratory Results BMP 02/24/20 06:09 Creatinine 1.10 D Medications Administered Current Inpatient Medications Acetaminophen (Acetaminophen 325 Mg Tab) 650 mg PO Q4H PRN PRN Reason: Pain or Fever Stop: 03/23/20 17:06 Last Admin: 02/24/20 12:04 Dose: 650 mg Documented by: Al Hydrox/Mg Hydrox/Simethicone (Aluminum/Magnesium Susp 30 Ml Udc) 15 ml PO Q4H PRN PRN Reason: Dyspepsia Stop: 03/23/20 17:06 Aspirin (Aspirin 81 Mg Ectab) 81 mg PO DAILY [facility] Stop: 03/24/20 08:59 Last Admin: 02/24/20 07:47 Dose: 81 mg Documented by: Buspirone HCl (Buspirone 7.5 Mg Tab) 7.5 mg PO BID [facility] Stop: 03/23/20 20:59 Last Admin: 02/24/20 07:47 Dose: 7.5 mg Documented by: Clonazepam (Clonazepam 0.5 Mg Tab) 0.5 mg PO BID PRN PRN Reason: Anxiety Stop: 03/23/20 17:06 Last Admin: 02/24/20 07:49 Dose: 0.5 mg Documented by: Dextrose (Dextrose 50% 50 Ml Syringe) 25 - 50 ml IV UD PRN; Protocol PRN Reason: Hypoglycemia Protocol Stop: 03/23/20 17:06 Dolutegravir Sodium (Dolutegravir Sodium 50 Mg Tab) 50 mg PO HS [facility] Stop: 03/23/20 20:59 Last Admin: 02/23/20 20:33 Dose: 50 mg Documented by: Enoxaparin Sodium (Enoxaparin Inj 40 Mg/0.4 Ml Syr) 40 mg SQ Q12H [facility] Stop: 03/23/20 20:59 Last Admin: 02/24/20 07:47 Dose: 40 mg Documented by: Fluvoxamine Maleate (Fluvoxamine Maleate 50 Mg Tab) 100 mg PO BID [facility] Stop: 03/23/20 20:59 Last Admin: 02/24/20 07:47 Dose: 100 mg Documented by: Glucagon (Glucagon For Inj 1 Mg Vial) 1 mg SQ UD PRN; Protocol PRN Reason: Hypoglycemia Protocol Stop: 03/23/20 17:06 Glucose (Glucose 40% Gel 15 Gm Tube) 15 - 30 gm PO UD PRN; Protocol PRN Reason: Hypoglycemia Protocol Stop: 03/23/20 17:06 Glucose (Glucose 10 Tabs/Tube) 4 - 8 tabs PO UD PRN; Protocol PRN Reason: Hypoglycemia Protocol Stop: 03/23/20 17:06 Hydroxyzine HCl (Hydroxyzine Hcl 25 Mg Tab) 50 mg PO TID [facility] Stop: 03/23/20 20:59 Ciprofloxacin (Cipro / D5w) 400 mg in 200 mls @ 100 mls/hr IV Q12H [facility]; Protocol Stop: 02/27/20 21:59 Last Infusion: 02/24/20 11:54 Dose: Infused Documented by: Insulin Aspart (Insulin Aspart 100 Units/Ml 3 Ml Pen) 0 units SC ACHS [facility] Stop: 03/23/20 16:59 Last Admin: 02/24/20 12:05 Dose: 2 units Documented by: Insulin Glargine (Insulin Glargine Solostar 100 Units/Ml 3 Ml Pen) 15 units SC QAM [facility] Stop: 03/25/20 08:59 Last Admin: 02/24/20 09:41 Dose: 15 units Documented by: Magnesium Hydroxide (Magnesium Hydroxide Susp 30 Ml Udc) 30 ml PO Q12H PRN PRN Reason: Constipation Stop: 03/23/20 17:06 Miscellaneous (Carbohydrates For Hypoglycemia ) 15 - 30 gm PO UD PRN PRN Reason: Hypoglycemia Protocol Stop: 03/23/20 17:06 Miscellaneous (Descovy: Order Awaiting Action) 1 ea N/A QS [facility] Stop: 03/24/20 07:59 Last Admin: 02/24/20 07:47 Dose: Not Given Documented by: Miscellaneous Information (Pharmacy Glycemic Mgmt Consult) 1 ea N/A UD PRN; Protocol PRN Reason: Consult Stop: 03/23/20 15:48 Ondansetron HCl (Ondansetron Inj 2 Mg/Ml 2 Ml Vial) 4 mg IV Q6H PRN PRN Reason: Nausea Stop: 03/23/20 17:06 Polyethylene Glycol (Polyethylene (Miralax) 17 Gm Pack) 17 gm PO DAILY PRN PRN Reason: Constipation Stop: 03/23/20 17:06 Risperidone (Risperidone 0.5 Mg Tablet) 0.5 mg PO BID [facility] Stop: 03/23/20 20:59 Last Admin: 02/24/20 07:47 Dose: 0.5 mg Documented by: (1) UTI (urinary tract infection) Hematuria presence: with hematuria Urinary tract infection type: acute cystitis Qualified Code(s): N30.01 - Acute cystitis with hematuria
[2020-02-24] MEDS: DOLUTEGRAVIR SODIUM 50 MG TAB PO SCH (20:12)
[2020-02-25] MEDS: busPIRone 7.5 MG TAB PO SCH ×2 (07:46→20:20)
[2020-02-25] MEDS: fluvoxaMINE MALEATE 50 MG TAB PO SCH ×2 (07:46→20:20)
[2020-02-25] MEDS: risperiDONE 0.5 MG TABLET PO SCH ×2 (07:46→20:22)
[2020-02-25 07:47] LABS: Basophils # (auto) 0.03 K/uL (0-0.2); Basophils % (auto) 0.5 %; Eosinophils # (auto) 0.05 K/uL (0-0.5); Eosinophils % (auto) 0.9 %; Hematocrit (blood only) 37.5 % (37-47); Hemoglobin 11.9 g/dL (12.0-16.0); Immature Granulocytes # (auto) 0.03 K/uL (0.00-0.02); Immature Granulocytes % (auto) 0.5 %; Lymphocytes # (auto) 1.92 K/uL (1.2-3.4); Lymphocytes % (auto) 33.5 %; Mean Corpuscular Hemoglobin 30.5 pg (25-34); Mean Corpuscular Hgb Conc 31.7 g/dL (32-36); Mean Corpuscular Volume 96.2 fL (80-100); Mean Platelet Volume 8.8 fL (7.4-10.4); Monocytes # (auto) 0.46 K/uL (0.11-0.59); Neutrophils # (auto) 3.24 K/uL (1.4-6.5); Neutrophils % (auto) 56.6 %; Platelet Count 255 K/uL (130-400); RDW Coefficient of Variation 13.7 % (11.5-14.5); RDW Standard Deviation 48.7 fL (36.4-46.3); White Blood Count 5.73 K/uL (4.8-10.8)
[2020-02-25] MEDS: ASPIRIN 81 MG ECTAB PO SCH (07:47)
[2020-02-25] MEDS: INSULIN GLARGINE SOLOSTAR 100 UNITS/ML 3 ML PEN SC SCH (07:47)
[2020-02-25] MEDS: ENOXAPARIN INJ 40 MG/0.4 ML SYR SQ SCH ×2 (07:47→20:19)
[2020-02-25] MEDS: INSULIN ASPART 100 UNITS/ML 3 ML PEN SC SCH ×4 (07:48→20:38)
[2020-02-25] MEDS: clonazePAM 0.5 MG TAB PO PRN ×2 (07:54→20:18)
[2020-02-25] MEDS: ACETAMINOPHEN 325 MG TAB PO PRN ×3 (07:55→20:18)
[2020-02-25 08:16] LABS: BUN Creatinine Ratio 22.6 (10-20); Calcium 8.4 mg/dl (8.5-10.1); Creatinine Clr Calc Pharmacy 52.2 ml/min; Est GFR (African American) 55.4; Est GFR (Non-African American) 47.8; Potassium 4.3 mmol/L (3.5-5.1)
[2020-02-25 08:17] LABS: Phosphorus 4.6 mg/dl (2.5-4.9)
--- NOTE | 2020-02-25 09:56 | Hospitalist Progress Note ---
Date of Service February 25, 2020 Assessment & Plan (1) Acute hyperglycemia: High blood sugar of around 400 is due to receiving steroid injection in the right knee joint 1 day prior to admission Appreciate pharmacy input and recommendation Blood sugar seems to be improving (2) GEGE (acute kidney injury): Likely secondary to dehydration Has been getting cautious amount of intravenous fluids Creatinine is little worse since admission and will monitor PRP and increase the intake of fluid (3) Acute dehydration: As above (4) UTI (urinary tract infection): UA was suggestive of infection on admission Urine culture is growing gram-negative bacilli, further identification and sensitivities pendin Urine culture is growing Klebsiella pneumoniae and that is pansensitive-we will continue current intravenous antibiotic Will give oral Keflex on discharge to finish the course of antibiotic (5) Falls: PT and OT evaluation for possible placement (6) Hypertension: Continue current medications (7) Chronic anemia: (8) Diabetic peripheral neuropathy associated with type 2 diabetes mellitus: (9) Major depressive disorder, recurrent severe without psychotic features: We will continue her outpatient medications DVT prophylaxis Subcu Lovenox CODE STATUS Full Likely discharge on Wednesday or Wednesday Admission and Anticipated Discharge Date Admission Date: February 22, 2020 Subjective 02/23/2020 The patient was seen and examined in medical telemetry unit She has been complaining of pain in the right knee which she was injected with hydrocortisone day before yesterday She does have urinary frequency but no dysuria Denies any other significant symptoms 02/24/2020 The patient was seen and examined in medical telemetry unit She has been feeling a lot better and denies any abdominal discomfort She still complains to have pain in the right knee which goes down to the right leg 02/25/2020 The patient was seen and examined in medical telemetry unit She has been feeling a lot better and the pain in the right knee is improving Denies any fever and/or chills Denies any problem with voiding Review of Systems Review of Systems: All systems reviewed and are unremarkable except as noted below Genitourinary: no urinary frequency and no urinary hesitancy Musculoskeletal: + joint pain (Right knee pain and swelling) Physical Exam Physical Exam: Lying in bed comfortably Constitutional: well developed, well nourished and + obese; not ill appearing Eyes: PERRL, conjunctivae normal, anicteric sclerae ENMT: external ear and nose normal, oropharynx normal Neck: trachea midline, no thyromegaly Respiratory: no respiratory distress Auscultation: lungs clear to auscultation bilaterally Cardiovascular: Rate/Rhythm: regular rate and regular rhythm Heart Sounds: + murmur (2/6 over precordium) Extremities: + edema (Trace edema on the right side. Has left AKA) Gastrointestinal (Abdomen): Inspection/Auscultation: normal bowel sounds; abdomen not distended Percussion/Palpation: abdomen soft; abdomen nontender Musculoskeletal: Knee: + deformity (Right knee swelling with tenderness and painful with movement) Neurologic: Alert, awake and oriented x3. No focal sensory and motor deficit appreciated but she has left AKA Psychiatric: A+Ox3, euthymic affect Lymphatic: no cervical or axillary lymphadenopathy Results & Data Results & Data ([facility]) Vital Signs (Past 12 Hours) Vital Signs Temp Pulse Pulse Resp BP BP Pulse Ox 02/25/20 07:38 79 02/25/20 07:17 36.6 C 82 18 152/85 H 97 02/25/20 05:19 36.9 C 77 18 116/72 97 02/24/20 22:45 74 02/24/20 22:22 37.1 C 76 20 121/65 96 Laboratory Results Short CBC 02/25/20 Range/Units 07:26 WBC 5.73 (4.8-10.8) K/uL Hgb 11.9 L (12.0-16.0) g/dL Hct 37.5 (37-47) % Plt Count 255 (130-400) K/uL BMP 02/25/20 07:26 Sodium 141 Potassium 4.3 Chloride 112 H Carbon Dioxide 24 BUN 28 H Creatinine 1.24 H Glucose 118 H Calcium 8.4 L Medications Administered Current Inpatient Medications Acetaminophen (Acetaminophen 325 Mg Tab) 650 mg PO Q4H PRN PRN Reason: Pain or Fever Stop: 03/23/20 17:06 Last Admin: 02/25/20 07:55 Dose: 650 mg Documented by: Al Hydrox/Mg Hydrox/Simethicone (Aluminum/Magnesium Susp 30 Ml Udc) 15 ml PO Q4H PRN PRN Reason: Dyspepsia Stop: 03/23/20 17:06 Aspirin (Aspirin 81 Mg Ectab) 81 mg PO DAILY [facility] Stop: 03/24/20 08:59 Last Admin: 02/25/20 07:47 Dose: 81 mg Documented by: Buspirone HCl (Buspirone 7.5 Mg Tab) 7.5 mg PO BID [facility] Stop: 03/23/20 20:59 Last Admin: 02/25/20 07:46 Dose: 7.5 mg Documented by: Clonazepam (Clonazepam 0.5 Mg Tab) 0.5 mg PO BID PRN PRN Reason: Anxiety Stop: 03/23/20 17:06 Last Admin: 02/25/20 07:54 Dose: 0.5 mg Documented by: Dextrose (Dextrose 50% 50 Ml Syringe) 25 - 50 ml IV UD PRN; Protocol PRN Reason: Hypoglycemia Protocol Stop: 03/23/20 17:06 Dolutegravir Sodium (Dolutegravir Sodium 50 Mg Tab) 50 mg PO HS [facility] Stop: 03/23/20 20:59 Last Admin: 02/24/20 20:12 Dose: 50 mg Documented by: Enoxaparin Sodium (Enoxaparin Inj 40 Mg/0.4 Ml Syr) 40 mg SQ Q12H [facility] Stop: 03/23/20 20:59 Last Admin: 02/25/20 07:47 Dose: 40 mg Documented by: Fluvoxamine Maleate (Fluvoxamine Maleate 50 Mg Tab) 100 mg PO BID [facility] Stop: 03/23/20 20:59 Last Admin: 02/25/20 07:46 Dose: 100 mg Documented by: Glucagon (Glucagon For Inj 1 Mg Vial) 1 mg SQ UD PRN; Protocol PRN Reason: Hypoglycemia Protocol Stop: 03/23/20 17:06 Glucose (Glucose 40% Gel 15 Gm Tube) 15 - 30 gm PO UD PRN; Protocol PRN Reason: Hypoglycemia Protocol Stop: 03/23/20 17:06 Glucose (Glucose 10 Tabs/Tube) 4 - 8 tabs PO UD PRN; Protocol PRN Reason: Hypoglycemia Protocol Stop: 03/23/20 17:06 Hydroxyzine HCl (Hydroxyzine Hcl 25 Mg Tab) 50 mg PO TID [facility] Stop: 03/23/20 20:59 Ciprofloxacin (Cipro / D5w) 400 mg in 200 mls @ 100 mls/hr IV Q12H [facility]; Protocol Stop: 02/27/20 21:59 Last Infusion: 02/24/20 22:15 Dose: Infused Documented by: Insulin Aspart (Insulin Aspart 100 Units/Ml 3 Ml Pen) 0 units SC ACHS [facility] Stop: 03/23/20 16:59 Last Admin: 02/25/20 07:48 Dose: 5 units Documented by: Insulin Glargine (Insulin Glargine Solostar 100 Units/Ml 3 Ml Pen) 15 units SC QAM [facility] Stop: 03/25/20 08:59 Last Admin: 02/25/20 07:47 Dose: 15 units Documented by: Magnesium Hydroxide (Magnesium Hydroxide Susp 30 Ml Udc) 30 ml PO Q12H PRN PRN Reason: Constipation Stop: 03/23/20 17:06 Miscellaneous (Carbohydrates For Hypoglycemia ) 15 - 30 gm PO UD PRN PRN Reason: Hypoglycemia Protocol Stop: 03/23/20 17:06 Miscellaneous (Descovy: Order Awaiting Action) 1 ea N/A QS [facility] Stop: 03/24/20 07:59 Last Admin: 02/25/20 07:49 Dose: Not Given Documented by: Miscellaneous Information (Pharmacy Glycemic Mgmt Consult) 1 ea N/A UD PRN; Protocol PRN Reason: Consult Stop: 03/23/20 15:48 Ondansetron HCl (Ondansetron Inj 2 Mg/Ml 2 Ml Vial) 4 mg IV Q6H PRN PRN Reason: Nausea Stop: 03/23/20 17:06 Polyethylene Glycol (Polyethylene (Miralax) 17 Gm Pack) 17 gm PO DAILY PRN PRN Reason: Constipation Stop: 03/23/20 17:06 Risperidone (Risperidone 0.5 Mg Tablet) 0.5 mg PO BID [facility] Stop: 03/23/20 20:59 Last Admin: 02/25/20 07:46 Dose: 0.5 mg Documented by: (1) UTI (urinary tract infection) Hematuria presence: with hematuria Urinary tract infection type: acute cystitis Qualified Code(s): N30.01 - Acute cystitis with hematuria
[2020-02-25] MEDS: CIPROFLOXACIN / D5W 400 MG/200 ML BAG IV SCH ×2 (10:01→22:40)
[2020-02-25] MEDS: DESCOVY PO SCH (20:20)
[2020-02-25] MEDS: DOLUTEGRAVIR SODIUM 50 MG TAB PO SCH (20:22)
[2020-02-26] MEDS: ACETAMINOPHEN 325 MG TAB PO PRN ×3 (08:07→21:15)
[2020-02-26] MEDS: clonazePAM 0.5 MG TAB PO PRN ×2 (08:07→21:14)
[2020-02-26] MEDS: risperiDONE 0.5 MG TABLET PO SCH ×2 (08:33→21:11)
[2020-02-26] MEDS: fluvoxaMINE MALEATE 50 MG TAB PO SCH ×2 (08:33→21:10)
[2020-02-26] MEDS: ASPIRIN 81 MG ECTAB PO SCH (08:34)
[2020-02-26] MEDS: ENOXAPARIN INJ 40 MG/0.4 ML SYR SQ SCH ×2 (08:34→21:10)
[2020-02-26] MEDS: busPIRone 7.5 MG TAB PO SCH ×2 (08:34→21:09)
[2020-02-26] MEDS: INSULIN ASPART 100 UNITS/ML 3 ML PEN SC SCH ×5 (08:37→21:17)
[2020-02-26 08:43] LABS: BUN Creatinine Ratio 23.3 (10-20); Calcium 8.7 mg/dl (8.5-10.1); Creatinine Clr Calc Pharmacy 48.3 ml/min; Est GFR (African American) 50.5; Est GFR (Non-African American) 43.6; Magnesium 2.1 mg/dl (1.8-2.4); Potassium 4.3 mmol/L (3.5-5.1)
--- NOTE | 2020-02-26 08:56 | Pharmacy Report ---
Pharmacy Glycemic Short Note 2 - Date of Service February 26, 2020 - Glycemic Short BSG Results (Last 24 hours): 02/25/20 02/25/20 02/25/20 11:11 16:42 20:16 Glucose POC Glucose 202 H 107 H 139 H 02/26/20 02/26/20 07:37 08:02 Glucose 183 H POC Glucose 189 H OUTPATIENT ANTIDIABETIC REGIMEN: * metformin 500 mg PO BIDM * HbA1c: 8.2% (02/23/20) ASSESSMENT: 02/25: * BSGs have been reasonably well controlled over the last 3 days * BSGs yesterday of 108, 202, 107, and 139 mg/dL * Patient received 34 units of insulin yesterday (15 units of basal and 19 units of prandial/correctional) * Fasting BSG of 189 mg/dL this morning * Will increase Lantus dose this morning 02/22: * 59 y/o F admitted for UTI, hyperglycemia and dehydration. Patient with a history of Type 2 diabetes managed at home on oral Metformin. * Will hold oral agents for admission and utilize SQ basal bolus insulin regimen which is the recommended regimen for inpatient glycemic control. * Will initiate weight based insulin dosing for insulin faustino patient and titrate based on BSG trends. * Patient received 20 units of Lantus yesterday around dinner time. Fasting BSG = 188 today. Lantus 20 units SQ given this AM based on wt and stress factor between 2 and 3. * Post-prandial BSG today was 82 mg/dl. Novolog CR was tightened this AM to 6 but loosened back again. * Added Lantus based on BSG at HS if patient needs it. PLAN FOR INPATIENT GLYCEMIC CONTROL: * Hold outpatient oral diabetes medications * Basal insulin - increase * Lantus 17 units SQ qAM * Bolus insulin - tighten carb ratio * NovoLog per scale ACHS or Q6hrs while NPO * Goal Range: Low 110 mg/dL - High 140 mg/dL * Correction Factor: 25 mg/dL/unit * Nutritional / Prandial insulin per carb ratio of 1 unit per 8 grams CHO consumed PLAN FOR DISCHARGE: * Reasonable HbA1c goal for most non- adults is less than 7% * HbA1c of 8.2% is elevated * SCr is currently elevated compared to baseline of ~1 mg/dL * If SCr returns to baseline - reasonable to increase metformin by 500 mg at weekly intervals to maximum dose of 1000 mg PO BIDM as tolerated
[2020-02-26] MEDS ORDERED: INSULIN GLARGINE SOLOSTAR 100 UNITS/ML 3 ML PEN SC SCH (09:00)
[2020-02-26] MEDS: CIPROFLOXACIN / D5W 400 MG/200 ML BAG IV SCH ×2 (10:28→22:13)
--- NOTE | 2020-02-26 15:29 | Hospitalist Progress Note ---
Date of Service February 26, 2020 Assessment & Plan (1) Acute hyperglycemia: High blood sugar of around 400 is due to receiving steroid injection in the right knee joint 1 day prior to admission Appreciate pharmacy input and recommendation Blood sugar seems to be improving (2) GEGE (acute kidney injury): Likely secondary to dehydration Has been getting cautious amount of intravenous fluids Creatinine is little worse since admission and will monitor PRP and increase the intake of fluid Creatinine is minimally high today at 1.34 Was advised to drink more fluid (3) Acute dehydration: As above (4) UTI (urinary tract infection): UA was suggestive of infection on admission Urine culture is growing gram-negative bacilli, further identification and sensitivities pendin Urine culture is growing Klebsiella pneumoniae and that is pansensitive-we will continue current intravenous antibiotic Will give oral Keflex on discharge to finish the course of antibiotic (5) Falls: PT and OT evaluation for possible placement Awaiting placement (6) Hypertension: Continue current medications (7) Chronic anemia: (8) Diabetic peripheral neuropathy associated with type 2 diabetes mellitus: (9) Major depressive disorder, recurrent severe without psychotic features: We will continue her outpatient medications DVT prophylaxis Subcu Lovenox CODE STATUS Full Likely discharge on Wednesday or Wednesday Admission and Anticipated Discharge Date Admission Date: February 22, 2020 Subjective 02/23/2020 The patient was seen and examined in medical telemetry unit She has been complaining of pain in the right knee which she was injected with hydrocortisone day before yesterday She does have urinary frequency but no dysuria Denies any other significant symptoms 02/24/2020 The patient was seen and examined in medical telemetry unit She has been feeling a lot better and denies any abdominal discomfort She still complains to have pain in the right knee which goes down to the right leg 02/25/2020 The patient was seen and examined in medical telemetry unit She has been feeling a lot better and the pain in the right knee is improving Denies any fever and/or chills Denies any problem with voiding 02/26/2020 The patient was seen and examined in medical floor She has been feeling a lot better Complains of minimal pain in the right knee Does not have any dysuria and/or frequency Review of Systems Review of Systems: All systems reviewed and are unremarkable except as noted below Musculoskeletal: + joint pain (Right knee pain and swelling) Physical Exam Physical Exam: Lying in bed comfortably Constitutional: well developed, well nourished and + obese; not ill appearing Eyes: PERRL, conjunctivae normal, anicteric sclerae ENMT: external ear and nose normal, oropharynx normal Neck: trachea midline, no thyromegaly Respiratory: no respiratory distress Auscultation: lungs clear to auscult ation bilaterally Cardiovascular: Rate/Rhythm: regular rate and regular rhythm Heart Sounds: + murmur (2/6 over precordium) Extremities: + edema (Trace edema on the right side. Has left AKA) Gastrointestinal (Abdomen): Inspection/Auscultation: normal bowel sounds; abdomen not distended Percussion/Palpation: abdomen soft; abdomen nontender (No hypogastric and/or renal angle tenderness) Musculoskeletal: Knee: + deformity (Right knee swelling with tenderness and painful with movement) Neurologic: Alert, awake and oriented x3 Psychiatric: A+Ox3, euthymic affect Lymphatic: no cervical or axillary lymphadenopathy Results & Data Results & Data ([facility]) Vital Signs (Past 12 Hours) Vital Signs Temp Pulse Resp BP Pulse Ox 02/26/20 07:38 37.1 C 85 18 138/82 93 Laboratory Results [facility] 02/26/20 07:37 Sodium 139 Potassium 4.3 Chloride 110 H Carbon Dioxide 24 BUN 31 H Creatinine 1.34 H Glucose 183 H Calcium 8.7 Medications Administered Current Inpatient Medications Acetaminophen (Acetaminophen 325 Mg Tab) 650 mg PO Q4H PRN PRN Reason: Pain or Fever Stop: 03/23/20 17:06 Last Admin: 02/26/20 13:41 Dose: 650 mg Documented by: Al Hydrox/Mg Hydrox/Simethicone (Aluminum/Magnesium Susp 30 Ml Udc) 15 ml PO Q4H PRN PRN Reason: Dyspepsia Stop: 03/23/20 17:06 Aspirin (Aspirin 81 Mg Ectab) 81 mg PO DAILY [facility] Stop: 03/24/20 08:59 Last Admin: 02/26/20 08:34 Dose: 81 mg Documented by: Buspirone HCl (Buspirone 7.5 Mg Tab) 7.5 mg PO BID [facility] Stop: 03/23/20 20:59 Last Admin: 02/26/20 08:34 Dose: 7.5 mg Documented by: Clonazepam (Clonazepam 0.5 Mg Tab) 0.5 mg PO BID PRN PRN Reason: Anxiety Stop: 03/23/20 17:06 Last Admin: 02/26/20 08:07 Dose: 0.5 mg Documented by: Dextrose (Dextrose 50% 50 Ml Syringe) 25 - 50 ml IV UD PRN; Protocol PRN Reason: Hypoglycemia Protocol Stop: 03/23/20 17:06 Dolutegravir Sodium (Dolutegravir Sodium 50 Mg Tab) 50 mg PO HS [facility] Stop: 03/23/20 20:59 Last Admin: 02/25/20 20:22 Dose: 50 mg Documented by: Enoxaparin Sodium (Enoxaparin Inj 40 Mg/0.4 Ml Syr) 40 mg SQ Q12H [facility] Stop: 03/23/20 20:59 Last Admin: 02/26/20 08:34 Dose: 40 mg Documented by: Fluvoxamine Maleate (Fluvoxamine Maleate 50 Mg Tab) 100 mg PO BID [facility] Stop: 03/23/20 20:59 Last Admin: 02/26/20 08:33 Dose: 100 mg Documented by: Glucagon (Glucagon For Inj 1 Mg Vial) 1 mg SQ UD PRN; Protocol PRN Reason: Hypoglycemia Protocol Stop: 03/23/20 17:06 Glucose (Glucose 40% Gel 15 Gm Tube) 15 - 30 gm PO UD PRN; Protocol PRN Reason: Hypoglycemia Protocol Stop: 03/23/20 17:06 Glucose (Glucose 10 Tabs/Tube) 4 - 8 tabs PO UD PRN; Protocol PRN Reason: Hypoglycemia Protocol Stop: 03/23/20 17:06 Hydroxyzine HCl (Hydroxyzine Hcl 25 Mg Tab) 50 mg PO TID [facility] Stop: 03/23/20 20:59 Ciprofloxacin (Cipro / D5w) 400 mg in 200 mls @ 100 mls/hr IV Q12H [facility]; Protocol Stop: 02/27/20 21:59 Last Infusion: 02/26/20 12:32 Dose: Infused Documented by: Insulin Aspart (Insulin Aspart 100 Units/Ml 3 Ml Pen) 0 units SC ACHS [facility] Stop: 03/23/20 16:59 Last Admin: 02/26/20 12:50 Dose: 6 units Documented by: Insulin Glargine (Insulin Glargine Solostar 100 Units/Ml 3 Ml Pen) 17 units SC QAM [facility] Stop: 03/25/20 08:59 Last Admin: 02/26/20 08:36 Dose: 17 units Documented by: Magnesium Hydroxide (Magnesium Hydroxide Susp 30 Ml Udc) 30 ml PO Q12H PRN PRN Reason: Constipation Stop: 03/23/20 17:06 Miscellaneous (Carbohydrates For Hypoglycemia ) 15 - 30 gm PO UD PRN PRN Reason: Hypoglycemia Protocol Stop: 03/23/20 17:06 Miscellaneous Information (Pharmacy Glycemic Mgmt Consult) 1 ea N/A UD PRN; Protocol PRN Reason: Consult Stop: 03/23/20 15:48 *Descovy*Non- Formulary Patient's Own Med 1 ea PO HS [facility]; Protocol Stop: 03/26/20 20:59 Last Admin: 02/25/20 20:20 Dose: 1 tab Documented by: Ondansetron HCl (Ondansetron Inj 2 Mg/Ml 2 Ml Vial) 4 mg IV Q6H PRN PRN Reason: Nausea Stop: 03/23/20 17:06 Polyethylene Glycol (Polyethylene (Miralax) 17 Gm Pack) 17 gm PO DAILY PRN PRN Reason: Constipation Stop: 03/23/20 17:06 Risperidone (Risperidone 0.5 Mg Tablet) 0.5 mg PO BID [facility] Stop: 03/23/20 20:59 Last Admin: 02/26/20 08:33 Dose: 0.5 mg Documented by: (1) UTI (urinary tract infection) Hematuria presence: with hematuria Urinary tract infection type: acute cystitis Qualified Code(s): N30.01 - Acute cystitis with hematuria
[2020-02-26] MEDS: DESCOVY PO SCH (21:11)
[2020-02-26] MEDS: DOLUTEGRAVIR SODIUM 50 MG TAB PO SCH (21:12)
[2020-02-27 06:37] LABS: BUN Creatinine Ratio 23.9 (10-20); Calcium 8.8 mg/dl (8.5-10.1); Creatinine Clr Calc Pharmacy 47.3 ml/min; Est GFR (African American) 49.2; Est GFR (Non-African American) 42.4; Potassium 4.4 mmol/L (3.5-5.1)
[2020-02-27] MEDS: ENOXAPARIN INJ 40 MG/0.4 ML SYR SQ SCH ×2 (09:01→20:29)
[2020-02-27] MEDS: ASPIRIN 81 MG ECTAB PO SCH (09:02)
[2020-02-27] MEDS: risperiDONE 0.5 MG TABLET PO SCH ×2 (09:02→20:32)
[2020-02-27] MEDS: busPIRone 7.5 MG TAB PO SCH ×2 (09:02→20:34)
[2020-02-27] MEDS: fluvoxaMINE MALEATE 50 MG TAB PO SCH ×2 (09:02→20:34)
[2020-02-27] MEDS: INSULIN GLARGINE SOLOSTAR 100 UNITS/ML 3 ML PEN SC SCH (09:03)
[2020-02-27] MEDS: INSULIN ASPART 100 UNITS/ML 3 ML PEN SC SCH ×4 (09:06→21:36)
[2020-02-27] MEDS: ACETAMINOPHEN 325 MG TAB PO PRN ×3 (09:07→20:29)
[2020-02-27] MEDS: clonazePAM 0.5 MG TAB PO PRN ×2 (09:07→20:28)
[2020-02-27] MEDS: CIPROFLOXACIN / D5W 400 MG/200 ML BAG IV SCH ×2 (10:59→11:45)
--- NOTE | 2020-02-27 18:32 | Hospitalist Progress Note ---
Date of Service February 27, 2020 Assessment & Plan (1) Acute hyperglycemia: High blood sugar of around 400 is due to receiving steroid injection in the right knee joint 1 day prior to admission Appreciate pharmacy input and recommendation Blood sugar seems to be improving (2) GEGE (acute kidney injury): Likely secondary to dehydration Has been getting cautious amount of intravenous fluids Creatinine is little worse since admission and will monitor PRP and increase the intake of fluid Creatinine is minimally high today at 1.34 Creatinine remains elevated at 1.37-she was asked to drink more fluid (3) Acute dehydration: As above (4) UTI (urinary tract infection): UA was suggestive of infection on admission Urine culture is growing gram-negative bacilli, further identification and sensitivities pendin Urine culture is growing Klebsiella pneumoniae and that is pansensitive-we will continue current intravenous antibiotic Will give oral Keflex on discharge to finish the course of antibiotic Denies any urinary symptoms (5) Falls: PT and OT evaluation for possible placement Awaiting placement (6) Hypertension: Continue current medications (7) Chronic anemia: (8) Diabetic peripheral neuropathy associated with type 2 diabetes mellitus: (9) Major depressive disorder, recurrent severe without psychotic features: We will continue her outpatient medications DVT prophylaxis Subcu Lovenox CODE STATUS Full Likely discharge tomorrow Admission and Anticipated Discharge Date Admission Date: February 22, 2020 Subjective 02/23/2020 The patient was seen and examined in medical telemetry unit She has been complaining of pain in the right knee which she was injected with hydrocortisone day before yesterday She does have urinary frequency but no dysuria Denies any other significant symptoms 02/24/2020 The patient was seen and examined in medical telemetry unit She has been feeling a lot better and denies any abdominal discomfort She still complains to have pain in the right knee which goes down to the right leg 02/25/2020 The patient was seen and examined in medical telemetry unit She has been feeling a lot better and the pain in the right knee is improving Denies any fever and/or chills Denies any problem with voiding 02/26/2020 The patient was seen and examined in medical floor She has been feeling a lot better Complains of minimal pain in the right knee Does not have any dysuria and/or frequency 02/27/2020 The patient was seen and examined in medical floor She has been complaining of pain in the right knee and also crying following physical therapy She will try to participate in the physical therapy Denies any other symptoms Review of Systems Review of Systems: All systems reviewed and are unremarkable except as noted below Musculoskeletal: + joint pain (Right knee pain and swelling) Physical Exam Physical Exam: Lying in bed with some discomfort due to right knee pain Constitutional: well developed, well nourished and + obese; not ill appearing Eyes: PERRL, conjunctivae normal, anicteric sclerae ENMT: external ear and nose normal, oropharynx normal Neck: trachea midline, no thyromegaly Respiratory: no respiratory distress Auscultation: lungs clear to auscultation bilaterally Cardiovascular: Rate/Rhythm: regular rate and regular rhythm Heart Sounds: + murmur (2/6 over precordium) Extremities: + edema (Trace edema on the right side. Has left AKA) Gastrointestinal (Abdomen): Inspection/Auscultation: normal bowel sounds; abdomen not distended Percussion/Palpation: abdomen soft; abdomen nontender (No hypogastric and/or renal angle tenderness) Musculoskeletal: Knee: + deformity (Right knee swelling with tenderness and painful with movement) Has a left AKA Neurologic: Alert, awake and oriented x3. Psychiatric: A+Ox3, euthymic affect Lymphatic: no cervical or axillary lymphadenopathy Results & Data Results & Data ([facility]) Vital Signs (Past 12 Hours) Vital Signs Temp Pulse Resp BP Pulse Ox 02/27/20 15:11 36.9 C 81 18 132/79 97 02/27/20 06:55 36.7 C 84 20 138/85 96 Laboratory Results [facility] 02/27/20 05:33 Sodium 141 Potassium 4.4 Chloride 111 H Carbon Dioxide 25 BUN 33 H Creatinine 1.37 H Glucose 160 H Calcium 8.8 Medications Administered Current Inpatient Medications Acetaminophen (Acetaminophen 325 Mg Tab) 650 mg PO Q4H PRN PRN Reason: Pain or Fever Stop: 03/23/20 17:06 Last Admin: 02/27/20 13:29 Dose: 650 mg Documented by: Al Hydrox/Mg Hydrox/Simethicone (Aluminum/Magnesium Susp 30 Ml Udc) 15 ml PO Q4H PRN PRN Reason: Dyspepsia Stop: 03/23/20 17:06 Aspirin (Aspirin 81 Mg Ectab) 81 mg PO DAILY [facility] Stop: 03/24/20 08:59 Last Admin: 02/27/20 09:02 Dose: 81 mg Documented by: Buspirone HCl (Buspirone 7.5 Mg Tab) 7.5 mg PO BID [facility] Stop: 03/23/20 20:59 Last Admin: 02/27/20 09:02 Dose: 7.5 mg Documented by: Clonazepam (Clonazepam 0.5 Mg Tab) 0.5 mg PO BID PRN PRN Reason: Anxiety Stop: 03/23/20 17:06 Last Admin: 02/27/20 09:07 Dose: 0.5 mg Documented by: Dextrose (Dextrose 50% 50 Ml Syringe) 25 - 50 ml IV UD PRN; Protocol PRN Reason: Hypoglycemia Protocol Stop: 03/23/20 17:06 Dolutegravir Sodium (Dolutegravir Sodium 50 Mg Tab) 50 mg PO HS [facility] Stop: 03/23/20 20:59 Last Admin: 02/26/20 21:12 Dose: 50 mg Documented by: Enoxaparin Sodium (Enoxaparin Inj 40 Mg/0.4 Ml Syr) 40 mg SQ Q12H [facility] Stop: 03/23/20 20:59 Last Admin: 02/27/20 09:01 Dose: 40 mg Documented by: Fluvoxamine Maleate (Fluvoxamine Maleate 50 Mg Tab) 100 mg PO BID [facility] Stop: 03/23/20 20:59 Last Admin: 02/27/20 09:02 Dose: 100 mg Documented by: Glucagon (Glucagon For Inj 1 Mg Vial) 1 mg SQ UD PRN; Protocol PRN Reason: Hypoglycemia Protocol Stop: 03/23/20 17:06 Glucose (Glucose 40% Gel 15 Gm Tube) 15 - 30 gm PO UD PRN; Protocol PRN Reason: Hypoglycemia Protocol Stop: 03/23/20 17:06 Glucose (Glucose 10 Tabs/Tube) 4 - 8 tabs PO UD PRN; Protocol PRN Reason: Hypoglycemia Protocol Stop: 03/23/20 17:06 Hydroxyzine HCl (Hydroxyzine Hcl 25 Mg Tab) 50 mg PO TID [facility] Stop: 03/23/20 20:59 Ciprofloxacin (Cipro / D5w) 400 mg in 200 mls @ 100 mls/hr IV Q12H [facility]; Protocol Stop: 02/27/20 21:59 Last Infusion: 02/27/20 14:18 Dose: Infused Documented by: Insulin Aspart (Insulin Aspart 100 Units/Ml 3 Ml Pen) 0 units SC ACHS [facility] Stop: 03/23/20 16:59 Last Admin: 02/27/20 17:57 Dose: 5 units Documented by: Insulin Glargine (Insulin Glargine Solostar 100 Units/Ml 3 Ml Pen) 20 units SC QAM [facility] Stop: 03/28/20 08:59 Last Admin: 02/27/20 09:03 Dose: 20 units Documented by: Magnesium Hydroxide (Magnesium Hydroxide Susp 30 Ml Udc) 30 ml PO Q12H PRN PRN Reason: Constipation Stop: 03/23/20 17:06 Miscellaneous (Carbohydrates For Hypoglycemia ) 15 - 30 gm PO UD PRN PRN Reason: Hypoglycemia Protocol Stop: 03/23/20 17:06 Miscellaneous Information (Pharmacy Glycemic Mgmt Consult) 1 ea N/A UD PRN; Protocol PRN Reason: Consult Stop: 03/23/20 15:48 *Descovy*Non- Formulary Patient's Own Med 1 ea PO HS [facility]; Protocol Stop: 03/26/20 20:59 Last Admin: 02/26/20 21:11 Dose: 1 tab Documented by: Ondansetron HCl (Ondansetron Inj 2 Mg/Ml 2 Ml Vial) 4 mg IV Q6H PRN PRN Reason: Nausea Stop: 03/23/20 17:06 Polyethylene Glycol (Polyethylene (Miralax) 17 Gm Pack) 17 gm PO DAILY PRN PRN Reason: Constipation Stop: 03/23/20 17:06 Risperidone (Risperidone 0.5 Mg Tablet) 0.5 mg PO BID [facility] Stop: 03/23/20 20:59 Last Admin: 02/27/20 09:02 Dose: 0.5 mg Documented by: (1) UTI (urinary tract infection) Hematuria presence: with hematuria Urinary tract infection type: acute cystitis Qualified Code(s): N30.01 - Acute cystitis with hematuria
[2020-02-27] MEDS: DESCOVY PO SCH (20:30)
[2020-02-27] MEDS: DOLUTEGRAVIR SODIUM 50 MG TAB PO SCH (20:31)
[2020-02-28 07:34] LABS: BUN Creatinine Ratio 22.6 (10-20); Calcium 8.7 mg/dl (8.5-10.1); Creatinine Clr Calc Pharmacy 47.6 ml/min; Est GFR (African American) 49.6; Est GFR (Non-African American) 42.8; Potassium 4.3 mmol/L (3.5-5.1)
[2020-02-28] MEDS: INSULIN GLARGINE SOLOSTAR 100 UNITS/ML 3 ML PEN SC SCH (08:53)
[2020-02-28] MEDS: INSULIN ASPART 100 UNITS/ML 3 ML PEN SC SCH ×4 (08:53→21:14)
[2020-02-28] MEDS: risperiDONE 0.5 MG TABLET PO SCH ×2 (08:54→21:10)
[2020-02-28] MEDS: fluvoxaMINE MALEATE 50 MG TAB PO SCH ×2 (08:54→21:09)
[2020-02-28] MEDS: ENOXAPARIN INJ 40 MG/0.4 ML SYR SQ SCH ×2 (08:54→21:08)
[2020-02-28] MEDS: ASPIRIN 81 MG ECTAB PO SCH (08:54)
[2020-02-28] MEDS: busPIRone 7.5 MG TAB PO SCH ×2 (08:54→21:09)
[2020-02-28] MEDS: clonazePAM 0.5 MG TAB PO PRN ×2 (08:57→21:09)
[2020-02-28] MEDS: ACETAMINOPHEN 325 MG TAB PO PRN (08:57)
[2020-02-28] MEDS: oxyCODONE/ACETAMINOPHEN 5mg/325mg TAB PO PRN ×2 (13:31→21:09)
--- NOTE | 2020-02-28 15:35 | Hospitalist Progress Note ---
Date of Service February 28, 2020 Assessment & Plan (1) Acute hyperglycemia: High blood sugar of around 400 is due to receiving steroid injection in the right knee joint 1 day prior to admission Appreciate pharmacy input and recommendation Blood sugar seems to be improving (2) GEGE (acute kidney injury): Likely secondary to dehydration Has been getting cautious amount of intravenous fluids Creatinine is little worse since admission and will monitor PRP and increase the intake of fluid She has not been drinking enough fluid and the creatinine remains elevated at 1.36 Will give a small amount of intravenous fluid Check PRP tomorrow (3) Acute dehydration: As above (4) UTI (urinary tract infection): UA was suggestive of infection on admission Urine culture is growing gram-negative bacilli, further identification and sensitivities pendin Urine culture is growing Klebsiella pneumoniae and that is pansensitive-we will continue current intravenous antibiotic Will give oral Keflex on discharge to finish the course of antibiotic Denies any urinary symptoms (5) Falls: PT and OT evaluation for possible placement Awaiting placement (6) Hypertension: Continue current medications (7) Chronic anemia: (8) Diabetic peripheral neuropathy associated with type 2 diabetes mellitus: (9) Major depressive disorder, recurrent severe without psychotic features: We will continue her outpatient medications DVT prophylaxis Subcu Lovenox CODE STATUS Full Likely discharge tomorrow/day after on approval to go to the skilled care facility Admission and Anticipated Discharge Date Admission Date: February 22, 2020 Subjective 02/23/2020 The patient was seen and examined in medical telemetry unit She has been complaining of pain in the right knee which she was injected with hydrocortisone day before yesterday She does have urinary frequency but no dysuria Denies any other significant symptoms 02/24/2020 The patient was seen and examined in medical telemetry unit She has been feeling a lot better and denies any abdominal discomfort She still complains to have pain in the right knee which goes down to the right leg 02/25/2020 The patient was seen and examined in medical telemetry unit She has been feeling a lot better and the pain in the right knee is improving Denies any fever and/or chills Denies any problem with voiding 02/26/2020 The patient was seen and examined in medical floor She has been feeling a lot better Complains of minimal pain in the right knee Does not have any dysuria and/or frequency 02/27/2020 The patient was seen and examined in medical floor She has been complaining of pain in the right knee and also crying following physical therapy She will try to participate in the physical therapy Denies any other symptoms 02/28/2020 The patient was seen and examined in medical floor She complains today of severe pain in the right knee and cannot participate in physical therapy She has started with Percocet since this morning Has any other symptoms Review of Systems Review of Systems: All systems reviewed and are unremarkable except as noted below Musculoskeletal: + joint pain (Right knee pain and swelling) Physical Exam Physical Exam: Lying in bed with some discomfort due to right knee pain Constitutional: well developed, well nourished and + obese; not ill appearing Eyes: PERRL, conjunctivae normal, anicteric sclerae ENMT: external ear and nose normal, oropharynx normal Neck: trachea midline, no thyromegaly Respiratory: no respiratory distress Auscultation: lungs clear to auscultation bilaterally Cardiovascular: Rate/Rhythm: regular rate and regular rhythm Heart Sounds: + murmur (2/6 over precordium) Extremities: + edema (Trace edema on the right side. Has left AKA) Gastrointestinal (Abdomen): Inspection/Auscultation: normal bowel sounds; abdomen not distended Percussion/Palpation: abdomen soft; abdomen nontender (No hypogastric and/or renal angle tenderness) Musculoskeletal: Knee: + deformity (Right knee swelling with tenderness and painful with movement) Neurologic: Alert, awake and oriented x3 Psychiatric: A+Ox3, euthymic affect Lymphatic: no cervical or axillary lymphadenopathy Results & Data Results & Data ([facility]) Vital Signs (Past 12 Hours) Vital Signs Temp Pulse Resp BP Pulse Ox 02/28/20 15:05 36.9 C 77 18 111/74 96 02/28/20 07:15 36.8 C 67 18 122/76 99 Laboratory Results [facility] 02/28/20 06:34 Sodium 138 Potassium 4.3 Chloride 108 H Carbon Dioxide 25 BUN 31 H Creatinine 1.36 H Glucose 133 H Calcium 8.7 Medications Administered Current Inpatient Medications Acetaminophen (Acetaminophen 325 Mg Tab) 650 mg PO Q4H PRN PRN Reason: Pain or Fever Stop: 03/23/20 17:06 Last Admin: 02/28/20 08:57 Dose: 650 mg Documented by: Al Hydrox/Mg Hydrox/Simethicone (Aluminum/Magnesium Susp 30 Ml Udc) 15 ml PO Q4H PRN PRN Reason: Dyspepsia Stop: 03/23/20 17:06 Aspirin (Aspirin 81 Mg Ectab) 81 mg PO DAILY [facility] Stop: 03/24/20 08:59 Last Admin: 02/28/20 08:54 Dose: 81 mg Documented by: Buspirone HCl (Buspirone 7.5 Mg Tab) 7.5 mg PO BID [facility] Stop: 03/23/20 20:59 Last Admin: 02/28/20 08:54 Dose: 7.5 mg Documented by: Clonazepam (Clonazepam 0.5 Mg Tab) 0.5 mg PO BID PRN PRN Reason: Anxiety Stop: 03/23/20 17:06 Last Admin: 02/28/20 08:57 Dose: 0.5 mg Documented by: Dextrose (Dextrose 50% 50 Ml Syringe) 25 - 50 ml IV UD PRN; Protocol PRN Reason: Hypoglycemia Protocol Stop: 03/23/20 17:06 Dolutegravir Sodium (Dolutegravir Sodium 50 Mg Tab) 50 mg PO HS [facility] Stop: 03/23/20 20:59 Last Admin: 02/27/20 20:31 Dose: 50 mg Documented by: Enoxaparin Sodium (Enoxaparin Inj 40 Mg/0.4 Ml Syr) 40 mg SQ Q12H [facility] Stop: 03/23/20 20:59 Last Admin: 02/28/20 08:54 Dose: 40 mg Documented by: Fluvoxamine Maleate (Fluvoxamine Maleate 50 Mg Tab) 100 mg PO BID [facility] Stop: 03/23/20 20:59 Last Admin: 02/28/20 08:54 Dose: 100 mg Documented by: Glucagon (Glucagon For Inj 1 Mg Vial) 1 mg SQ UD PRN; Protocol PRN Reason: Hypoglycemia Protocol Stop: 03/23/20 17:06 Glucose (Glucose 40% Gel 15 Gm Tube) 15 - 30 gm PO UD PRN; Protocol PRN Reason: Hypoglycemia Protocol Stop: 03/23/20 17:06 Glucose (Glucose 10 Tabs/Tube) 4 - 8 tabs PO UD PRN; Protocol PRN Reason: Hypoglycemia Protocol Stop: 03/23/20 17:06 Hydroxyzine HCl (Hydroxyzine Hcl 25 Mg Tab) 50 mg PO TID [facility] Stop: 03/23/20 20:59 Insulin Aspart (Insulin Aspart 100 Units/Ml 3 Ml Pen) 0 units SC ACHS [facility] Stop: 03/23/20 16:59 Last Admin: 02/28/20 13:02 Dose: 7 units Documented by: Insulin Glargine (Insulin Glargine Solostar 100 Units/Ml 3 Ml Pen) 20 units SC QAM [facility] Stop: 03/28/20 08:59 Last Admin: 02/28/20 08:53 Dose: 20 units Documented by: Magnesium Hydroxide (Magnesium Hydroxide Susp 30 Ml Udc) 30 ml PO Q12H PRN PRN Reason: Constipation Stop: 03/23/20 17:06 Miscellaneous (Carbohydrates For Hypoglycemia ) 15 - 30 gm PO UD PRN PRN Reason: Hypoglycemia Protocol Stop: 03/23/20 17:06 Miscellaneous Information (Pharmacy Glycemic Mgmt Consult) 1 ea N/A UD PRN; Protocol PRN Reason: Consult Stop: 03/23/20 15:48 *Descovy*Non- Formulary Patient's Own Med 1 ea PO HS [facility]; Protocol Stop: 03/26/20 20:59 Last Admin: 02/27/20 20:30 Dose: 1 tab Documented by: Ondansetron HCl (Ondansetron Inj 2 Mg/Ml 2 Ml Vial) 4 mg IV Q6H PRN PRN Reason: Nausea Stop: 03/23/20 17:06 Oxycodone/Acetaminophen (Oxycodone/Acetaminophen 5mg/325mg Tab) 1 tab PO Q6H PRN PRN Reason: Pain Stop: 03/13/20 13:16 Last Admin: 02/28/20 13:31 Dose: 1 tab Documented by: Polyethylene Glycol (Polyethylene (Miralax) 17 Gm Pack) 17 gm PO DAILY PRN PRN Reason: Constipation Stop: 03/23/20 17:06 Risperidone (Risperidone 0.5 Mg Tablet) 0.5 mg PO BID [facility] Stop: 03/23/20 20:59 Last Admin: 02/28/20 08:54 Dose: 0.5 mg Documented by: (1) UTI (urinary tract infection) Hematuria presence: with hematuria Urinary tract infection type: acute cystitis Qualified Code(s): N30.01 - Acute cystitis with hematuria
[2020-02-28] MEDS: SODIUM CHLORIDE 0.9% 1000ML 1,000 ML IV SCH (16:45)
[2020-02-28] MEDS: DESCOVY PO SCH (21:07)
[2020-02-28] MEDS: DOLUTEGRAVIR SODIUM 50 MG TAB PO SCH (21:09)
[2020-02-29] MEDS: SODIUM CHLORIDE 0.9% 1000ML 1,000 ML IV SCH (04:49)
[2020-02-29 06:34] LABS: BUN Creatinine Ratio 23.8 (10-20); Calcium 8.3 mg/dl (8.5-10.1); Creatinine Clr Calc Pharmacy 55.8 ml/min; Est GFR (African American) 60.1; Est GFR (Non-African American) 51.9; Potassium 4.1 mmol/L (3.5-5.1)
[2020-02-29] MEDS: ASPIRIN 81 MG ECTAB PO SCH (07:52)
[2020-02-29] MEDS: oxyCODONE/ACETAMINOPHEN 5mg/325mg TAB PO PRN ×3 (07:52→20:18)
[2020-02-29] MEDS: ENOXAPARIN INJ 40 MG/0.4 ML SYR SQ SCH ×2 (07:52→20:10)
[2020-02-29] MEDS: risperiDONE 0.5 MG TABLET PO SCH ×2 (07:52→20:11)
[2020-02-29] MEDS: busPIRone 7.5 MG TAB PO SCH ×2 (07:52→20:12)
[2020-02-29] MEDS: fluvoxaMINE MALEATE 50 MG TAB PO SCH ×2 (07:52→20:11)
[2020-02-29] MEDS: clonazePAM 0.5 MG TAB PO PRN ×2 (08:08→20:18)
[2020-02-29] MEDS: INSULIN GLARGINE SOLOSTAR 100 UNITS/ML 3 ML PEN SC SCH (09:13)
[2020-02-29] MEDS: INSULIN ASPART 100 UNITS/ML 3 ML PEN SC SCH ×4 (09:14→20:57)
--- NOTE | 2020-02-29 10:25 | Pharmacy Report ---
Pharmacy Glycemic Short Note 2 - Date of Service February 29, 2020 - Glycemic Short BSG Results (Last 24 hours): 02/28/20 02/28/20 02/28/20 11:37 17:03 20:34 Glucose POC Glucose 176 H 80 94 02/29/20 02/29/20 05:27 08:29 Glucose 101 H POC Glucose 109 H OUTPATIENT ANTIDIABETIC REGIMEN: * metformin 500 mg PO BIDM * HbA1c: 8.2% (02/23/20) ASSESSMENT: 02/28: * Patient is currently receiving an average of 40 units of insulin per day * 20 units of basal insulin * 20 units of prandial/correctional insulin * BSGs ranging 80 - 176mg/dl over the past 24hrs * AM Fasting BSG = 101 mg/dl which is in goal range for AM targets; however AM fasting BSG has been trending dowanwards over the past 3 days (171 --> 135 --> 101). Will slightly decrease dose to prevent AM fasting LOW tomorrow. * Total daily dose = is evenly distributed 50%:50% basal:prandial to prevent hypo/hyperglycemia * Post-prandial BSGs are in goal range; no changes needed 02/25: * BSGs have been reasonably well controlled over the last 3 days * BSGs yesterday of 108, 202, 107, and 139 mg/dL * Patient received 34 units of insulin yesterday (15 units of basal and 19 units of prandial/correctional) * Fasting BSG of 189 mg/dL this morning * Will increase Lantus dose this morning 02/22: * 59 y/o F admitted for UTI, hyperglycemia and dehydration. Patient with a history of Type 2 diabetes managed at home on oral Metformin. * Will hold oral agents for admission and utilize SQ basal bolus insulin regimen which is the recommended regimen for inpatient glycemic control. * Will initiate weight based insulin dosing for insulin faustino patient and titrate based on BSG trends. * Patient received 20 units of Lantus yesterday around dinner time. Fasting BSG = 188 today. Lantus 20 units SQ given this AM based on wt and stress factor between 2 and 3. * Post-prandial BSG today was 82 mg/dl. Novolog CR was tightened this AM to 6 but loosened back again. * Added Lantus based on BSG at HS if patient needs it. PLAN FOR INPATIENT GLYCEMIC CONTROL: * Hold outpatient oral diabetes medications * Basal insulin - decrease * Lantus 19 units SQ qAM * Bolus insulin - no change * NovoLog per scale ACHS or Q6hrs while NPO * Goal Range: Low 110 mg/dL - High 140 mg/dL * Correction Factor: 25 mg/dL/unit * Nutritional / Prandial insulin per carb ratio of 1 unit per 8 grams CHO consumed PLAN FOR DISCHARGE: * Reasonable HbA1c goal for most non- adults is less than 7% * HbA1c of 8.2% is elevated * SCr is currently elevated compared to baseline of ~1 mg/dL * If SCr returns to baseline - reasonable to increase metformin by 500 mg at weekly intervals to maximum dose of 1000 mg PO BIDM as tolerated
--- NOTE | 2020-02-29 19:11 | Hospitalist Progress Note ---
Date of Service February 29, 2020 Assessment & Plan (1) Acute hyperglycemia: Presented with high blood sugar around 400 is due to receiving steroid injection in the right knee joint 1 day prior to admission Appreciate pharmacy input and recommendation Blood glucose levels much controlled (2) GEGE (acute kidney injury): Likely secondary to dehydration Received IV fluids Creatinine levels improved Monitor renal function (3) Acute dehydration: As above (4) UTI (urinary tract infection): Urine Cx: Klebsiella pneumonia--pansensitive Completed IV ciprofloxacin course (5) Falls: PT and OT evaluation Awaiting placement (6) Hypertension: Continue current medications (7) Chronic anemia: (8) Diabetic peripheral neuropathy associated with type 2 diabetes mellitus: (9) Major depressive disorder, recurrent severe without psychotic features: Continue home medications DVT prophylaxis Lovenox SQ CODE STATUS Full Disposition SNF when approved Admission and Anticipated Discharge Date Admission Date: February 22, 2020 Subjective Patient is seen and examined at bedside Right knee pain is controlled Denies chest pain, shortness of breath, dizziness, nausea, abdominal pain No distress on exam Offers no other complaints Review of Systems Review of Systems: All systems reviewed & are unremarkable except as noted in HPI & below Physical Exam Physical Exam: Physical Exam: Vitals signs as noted above General Appearance:Obese, no apparent distress Head: normocephalic, Atraumatic Eyes: normal inspection, EOMI Neck: supple, Trachea midline Respiratory/Chest: Normal breath sounds, CTA Cardiovascular: S1, S2, No murmur Abdomen/GI:Soft, Non tender, Bowel sounds present Extremities/Musculoskelatal:normal inspection, no edema, Left AKA, Right toes amputated, R knee mild tender, Neurologic/Psych:AAOX3, grossly no focal neurological deficits Skin: normal color, warm Results & Data Results & Data ([facility]) Vital Signs (Past 12 Hours) Vital Signs Temp Pulse Resp BP Pulse Ox 02/29/20 14:58 36.8 C 82 18 108/71 95 Laboratory Results [facility] 02/29/20 05:27 Sodium 141 Potassium 4.1 Chloride 112 H Carbon Dioxide 25 BUN 28 H Creatinine 1.16 Glucose 101 H Calcium 8.3 L (1) UTI (urinary tract infection) Hematuria presence: with hematuria Urinary tract infection type: acute cystitis Qualified Code(s): N30.01 - Acute cystitis with hematuria
[2020-02-29] MEDS: DOLUTEGRAVIR SODIUM 50 MG TAB PO SCH (20:10)
[2020-02-29] MEDS: DESCOVY PO SCH (20:13)
[2020-03-01 06:14] LABS: Hematocrit (blood only) 37.1 % (37-47); Hemoglobin 11.7 g/dL (12.0-16.0); Mean Corpuscular Hemoglobin 30.2 pg (25-34); Mean Corpuscular Hgb Conc 31.5 g/dL (32-36); Mean Corpuscular Volume 95.9 fL (80-100); Mean Platelet Volume 9.2 fL (7.4-10.4); Platelet Count 256 K/uL (130-400); RDW Standard Deviation 45.7 fL (36.4-46.3); Red Blood Count 3.87 M/uL (4.2-5.4); White Blood Count 4.99 K/uL (4.8-10.8)
[2020-03-01 06:59] LABS: BUN Creatinine Ratio 21.8 (10-20); Calcium 8.5 mg/dl (8.5-10.1); Creatinine Clr Calc Pharmacy 54.4 ml/min; Est GFR (African American) 58.3; Est GFR (Non-African American) 50.3; Magnesium 2.1 mg/dl (1.8-2.4); Potassium 4.4 mmol/L (3.5-5.1)
[2020-03-01] MEDS: ENOXAPARIN INJ 40 MG/0.4 ML SYR SQ SCH ×2 (08:00→20:11)
[2020-03-01] MEDS: oxyCODONE/ACETAMINOPHEN 5mg/325mg TAB PO PRN ×3 (08:00→20:17)
[2020-03-01] MEDS: fluvoxaMINE MALEATE 50 MG TAB PO SCH ×2 (08:00→20:13)
[2020-03-01] MEDS: busPIRone 7.5 MG TAB PO SCH ×2 (08:00→20:11)
[2020-03-01] MEDS: risperiDONE 0.5 MG TABLET PO SCH ×2 (08:00→20:12)
[2020-03-01] MEDS: clonazePAM 0.5 MG TAB PO PRN ×2 (08:00→20:18)
[2020-03-01] MEDS: ASPIRIN 81 MG ECTAB PO SCH (08:00)
--- NOTE | 2020-03-01 09:30 | Pharmacy Report ---
Pharmacy Glycemic Short Note 2 - Date of Service March 01, 2020 - Glycemic Short BSG Results (Last 24 hours): 02/29/20 02/29/20 02/29/20 12:11 17:32 20:54 Glucose POC Glucose 142 H 100 H 86 03/01/20 03/01/20 05:57 08:25 Glucose 102 H POC Glucose 130 H OUTPATIENT ANTIDIABETIC REGIMEN: * metformin 500 mg PO BIDM * HbA1c: 8.2% (02/23/20) ASSESSMENT: 03/01: * Pt has received 36 units of insulin over the past 24hrs * 19 units of basal insulin {Lantus} * 17 units of bolus insulin {NovoLog} * BSGs ranging 86 - 142 mg/dl * All BSGs are in goal range for inpatient targets. Regimen is split 50%basal : 50% prandial. No changes needed at this time. 02/28: * Patient is currently receiving an average of 40 units of insulin per day * 20 units of basal insulin * 20 units of prandial/correctional insulin * BSGs ranging 80 - 176mg/dl over the past 24hrs * AM Fasting BSG = 101 mg/dl which is in goal range for AM targets; however AM fasting BSG has been trending dowanwards over the past 3 days (171 --> 135 --> 101). Will slightly decrease dose to prevent AM fasting LOW tomorrow. * Total daily dose = is evenly distributed 50%:50% basal:prandial to prevent hypo/hyperglycemia * Post-prandial BSGs are in goal range; no changes needed 02/25: * BSGs have been reasonably well controlled over the last 3 days * BSGs yesterday of 108, 202, 107, and 139 mg/dL * Patient received 34 units of insulin yesterday (15 units of basal and 19 units of prandial/correctional) * Fasting BSG of 189 mg/dL this morning * Will increase Lantus dose this morning 02/22: * 59 y/o F admitted for UTI, hyperglycemia and dehydration. Patient with a history of Type 2 diabetes managed at home on oral Metformin. * Will hold oral agents for admission and utilize SQ basal bolus insulin regimen which is the recommended regimen for inpatient glycemic control. * Will initiate weight based insulin dosing for insulin faustino patient and titrate based on BSG trends. * Patient received 20 units of Lantus yesterday around dinner time. Fasting BSG = 188 today. Lantus 20 units SQ given this AM based on wt and stress factor between 2 and 3. * Post-prandial BSG today was 82 mg/dl. Novolog CR was tightened this AM to 6 but loosened back again. * Added Lantus based on BSG at HS if patient needs it. PLAN FOR INPATIENT GLYCEMIC CONTROL: no changes needed 03/01/20 * Hold outpatient oral diabetes medications * Basal insulin * Lantus 19 units SQ qAM * Bolus insulin - * NovoLog per scale ACHS or Q6hrs while NPO * Goal Range: Low 110 mg/dL - High 140 mg/dL * Correction Factor: 25 mg/dL/unit * Nutritional / Prandial insulin per carb ratio of 1 unit per 8 grams CHO consumed PLAN FOR DISCHARGE: * Reasonable HbA1c goal for most non- adults is less than 7% * HbA1c of 8.2% is elevated * Recommend maximizing metformin dosing. Continue to titrate metformin dosing upwards as recommended. Dosage increases should be made in increments of 500 mg weekly, up to 2,000 mg/day PO, given in divided doses. Doses above 2000 mg/day may be better tolerated if divided and given 3 times per day with meals. 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
[2020-03-01] MEDS: INSULIN ASPART 100 UNITS/ML 3 ML PEN SC SCH ×4 (09:40→21:29)
[2020-03-01] MEDS: INSULIN GLARGINE SOLOSTAR 100 UNITS/ML 3 ML PEN SC SCH (09:41)
[2020-03-01] MEDS: DOLUTEGRAVIR SODIUM 50 MG TAB PO SCH (20:13)
[2020-03-01] MEDS: DESCOVY PO SCH (20:14)
--- NOTE | 2020-03-01 20:45 | Hospitalist Progress Note ---
Date of Service March 01, 2020 Assessment & Plan (1) Acute hyperglycemia: Presented with high blood sugar around 400 is due to receiving steroid injection in the right knee joint 1 day prior to admission Appreciate pharmacy input and recommendation Blood glucose levels much controlled (2) GEGE (acute kidney injury): Likely secondary to dehydration Received IV fluids GEGE resolved Monitor renal function (3) Acute dehydration: As above (4) UTI (urinary tract infection): Urine Cx: Klebsiella pneumonia--pansensitive Completed IV ciprofloxacin course (5) Falls: PT and OT evaluation Awaiting placement (6) Hypertension: Continue current medications (7) Chronic anemia: (8) Diabetic peripheral neuropathy associated with type 2 diabetes mellitus: (9) Major depressive disorder, recurrent severe without psychotic features: Continue home medications DVT prophylaxis Lovenox SQ CODE STATUS Full Disposition SNF when approved Case management working on placement Admission and Anticipated Discharge Date Admission Date: February 22, 2020 Subjective Patient is seen and examined at bedside No new complaints Denies any significant Right knee pain Denies chest pain, shortness of breath, dizziness, nausea, abdominal pain Waiting for placement Review of Systems Review of Systems: All systems reviewed & are unremarkable except as noted in HPI & below Physical Exam Physical Exam: Physical Exam: Vitals signs as noted above General Appearance:Obese, no apparent distress Head: normocephalic, Atraumatic Eyes: normal inspection, EOMI Neck: supple, Trachea midline Respiratory/Chest: Normal breath sounds, CTA Cardiovascular: S1, S2, No murmur Abdomen/GI:Soft, Non tender, Bowel sounds present Extremities/Musculoskelatal:normal inspection, no edema, Left AKA, Right toes amputated Neurologic/Psych:AAOX3, grossly no focal neurological deficits Skin: normal color, warm Results & Data Results & Data ([facility]) Vital Signs (Past 12 Hours) Vital Signs Temp Pulse Resp BP Pulse Ox 03/01/20 15:21 36.6 C 74 18 137/82 99 03/01/20 08:42 36.9 C 74 18 122/73 97 Laboratory Results Short CBC 03/01/20 Range/Units 05:57 WBC 4.99 (4.8-10.8) K/uL Hgb 11.7 L (12.0-16.0) g/dL Hct 37.1 (37-47) % Plt Count 256 (130-400) K/uL [facility] 12/18/20 05:57 Sodium 145 Potassium 4.4 Chloride 113 H Carbon Dioxide 27 BUN 26 H Creatinine 1.19 Glucose 102 H Calcium 8.5 (1) UTI (urinary tract infection) Hematuria presence: with hematuria Urinary tract infection type: acute cystitis Qualified Code(s): N30.01 - Acute cystitis with hematuria
[2020-03-02 06:30] LABS: Creatinine Clr Calc Pharmacy 51.4 ml/min; Est GFR (African American) 54.4; Est GFR (Non-African American) 46.9
[2020-03-02] MEDS: clonazePAM 0.5 MG TAB PO PRN ×2 (08:18→20:23)
[2020-03-02] MEDS: oxyCODONE/ACETAMINOPHEN 5mg/325mg TAB PO PRN ×2 (08:18→14:01)
[2020-03-02] MEDS: fluvoxaMINE MALEATE 50 MG TAB PO SCH ×2 (08:19→20:25)
[2020-03-02] MEDS: ASPIRIN 81 MG ECTAB PO SCH (08:19)
[2020-03-02] MEDS: ENOXAPARIN INJ 40 MG/0.4 ML SYR SQ SCH ×2 (08:20→20:24)
[2020-03-02] MEDS: busPIRone 7.5 MG TAB PO SCH ×2 (08:20→20:25)
[2020-03-02] MEDS: risperiDONE 0.5 MG TABLET PO SCH ×2 (08:20→20:27)
[2020-03-02] MEDS: INSULIN ASPART 100 UNITS/ML 3 ML PEN SC SCH ×4 (08:52→20:30)
[2020-03-02] MEDS: INSULIN GLARGINE SOLOSTAR 100 UNITS/ML 3 ML PEN SC SCH (08:53)
--- NOTE | 2020-03-02 18:04 | Hospitalist Progress Note ---
Date of Service March 02, 2020 Assessment & Plan (1) Acute hyperglycemia: H/O DM II Presented with high blood sugar around 400 is due to receiving steroid injection in the right knee joint 1 day prior to admission Appreciate pharmacy input and recommendation Blood glucose levels much controlled Continue Insulin therapy (2) GEGE (acute kidney injury): Likely secondary to dehydration Received IV fluids GEGE resolved Monitor renal function (3) Acute dehydration: As above (4) UTI (urinary tract infection): Urine Cx: Klebsiella pneumonia--pansensitive Completed IV ciprofloxacin course (5) Falls: PT and OT evaluation Awaiting placement (6) Hypertension: Stable (7) Chronic anemia: (8) Diabetic peripheral neuropathy associated with type 2 diabetes mellitus: (9) Major depressive disorder, recurrent severe without psychotic features: Continue home medications DVT prophylaxis Lovenox SQ CODE STATUS Full Disposition SNF when approved Case management consulted Admission and Anticipated Discharge Date Admission Date: February 22, 2020 Subjective Patient is seen and examined at bedside Waiting for placement Offers no complaints Denies chest pain, shortness of breath, dizziness, nausea, abdominal pain Review of Systems Review of Systems: All systems reviewed and are unremarkable except as noted below Physical Exam Physical Exam: Physical Exam: Vitals signs as noted above General Appearance:Obese, no apparent distress Head: normocephalic, Atraumatic Eyes: normal inspection, EOMI Neck: supple, Trachea midline Respiratory/Chest: Normal breath sounds, CTA Cardiovascular: S1, S2, No murmur Abdomen/GI:Soft, Non tender, Bowel sounds present Extremities/Musculoskelatal:normal inspection, no edema, Left AKA, Right toes amputated Neurologic/Psych:AAOX3, grossly no focal neurological deficits Skin: normal color, warm Results & Data Results & Data ([facility]) Vital Signs (Past 12 Hours) Vital Signs Temp Pulse Resp BP BP Pulse Ox 03/02/20 16:00 36.9 C 74 16 93/58 L 100 03/02/20 07:45 36.8 C 74 101/64 99 Laboratory Results [facility] 03/02/20 05:35 Creatinine 1.26 H (1) UTI (urinary tract infection) Hematuria presence: with hematuria Urinary tract infection type: acute cystitis Qualified Code(s): N30.01 - Acute cystitis with hematuria
[2020-03-02] MEDS: DESCOVY PO SCH (20:24)
[2020-03-02] MEDS: DOLUTEGRAVIR SODIUM 50 MG TAB PO SCH (20:25)
[2020-03-03] MEDS: INSULIN ASPART 100 UNITS/ML 3 ML PEN SC SCH ×4 (09:07→23:09)
[2020-03-03] MEDS: INSULIN GLARGINE SOLOSTAR 100 UNITS/ML 3 ML PEN SC SCH (09:08)
[2020-03-03] MEDS: busPIRone 7.5 MG TAB PO SCH ×2 (09:09→20:44)
[2020-03-03] MEDS: fluvoxaMINE MALEATE 50 MG TAB PO SCH ×2 (09:09→20:44)
[2020-03-03] MEDS: ASPIRIN 81 MG ECTAB PO SCH (09:09)
[2020-03-03] MEDS: risperiDONE 0.5 MG TABLET PO SCH ×2 (09:09→20:44)
[2020-03-03] MEDS: ENOXAPARIN INJ 40 MG/0.4 ML SYR SQ SCH ×2 (09:10→20:45)
[2020-03-03] MEDS: oxyCODONE/ACETAMINOPHEN 5mg/325mg TAB PO PRN ×2 (09:14→20:49)
[2020-03-03] MEDS: clonazePAM 0.5 MG TAB PO PRN ×2 (09:14→20:49)
--- NOTE | 2020-03-03 16:06 | Hospitalist Progress Note ---
Date of Service March 03, 2020 Assessment & Plan (1) Acute hyperglycemia: H/O DM II Presented with high blood sugar around 400 is due to receiving steroid injection in the right knee joint 1 day prior to admission Appreciate pharmacy input and recommendation Blood glucose levels much controlled Continue Insulin therapy Continue current medications (2) GEGE (acute kidney injury): Likely secondary to dehydration Received IV fluids GEGE resolved Monitor renal function (3) Acute dehydration: As above (4) UTI (urinary tract infection): Urine Cx: Klebsiella pneumonia--pansensitive Completed IV ciprofloxacin course (5) Falls: PT and OT evaluation Awaiting placement (6) Hypertension: Stable (7) Chronic anemia: (8) Diabetic peripheral neuropathy associated with type 2 diabetes mellitus: (9) Major depressive disorder, recurrent severe without psychotic features: Continue home medications DVT prophylaxis Lovenox SQ CODE STATUS Full Disposition Likely discharge to rehab facility tomorrow. Case management consulted Admission and Anticipated Discharge Date Admission Date: February 22, 2020 Subjective Patient is seen and examined at bedside No new complaints Waiting for placement Sitting in chair comfortably this morning Denies chest pain, shortness of breath, dizziness, nausea, abdominal pain Review of Systems Review of Systems: All systems reviewed and are unremarkable except as noted below Musculoskeletal: + joint pain (Right knee pain and swelling) Physical Exam Physical Exam: Physical Exam: Vitals signs as noted above General Appearance:Obese, no apparent distress Head: normocephalic, Atraumatic Eyes: normal inspection, EOMI Neck: supple, Trachea midline Respiratory/Chest: Normal breath sounds, CTA Cardiovascular: S1, S2, No murmur Abdomen/GI:Soft, Non tender, Bowel sounds present Extremities/Musculoskelatal:normal inspection, no edema, Left AKA, Right toes amputated Neurologic/Psych:AAOX3, grossly no focal neurological deficits Skin: normal color, warm Results & Data Results & Data ([facility]) Vital Signs (Past 12 Hours) Vital Signs Temp Pulse BP Pulse Ox 03/03/20 07:00 36.9 C 70 112/73 97 (1) UTI (urinary tract infection) Hematuria presence: with hematuria Urinary tract infection type: acute cystitis Qualified Code(s): N30.01 - Acute cystitis with hematuria
[2020-03-03] MEDS: DOLUTEGRAVIR SODIUM 50 MG TAB PO SCH (20:45)
[2020-03-03] MEDS: DESCOVY PO SCH (20:46)
[2020-03-04] MEDS: INSULIN ASPART 100 UNITS/ML 3 ML PEN SC SCH ×4 (09:26→21:13)
[2020-03-04] MEDS: ASPIRIN 81 MG ECTAB PO SCH (09:39)
[2020-03-04] MEDS: fluvoxaMINE MALEATE 50 MG TAB PO SCH ×2 (09:40→20:55)
[2020-03-04] MEDS: risperiDONE 0.5 MG TABLET PO SCH ×2 (09:40→20:56)
[2020-03-04] MEDS: INSULIN GLARGINE SOLOSTAR 100 UNITS/ML 3 ML PEN SC SCH (09:40)
[2020-03-04] MEDS: busPIRone 7.5 MG TAB PO SCH ×2 (09:40→20:56)
[2020-03-04] MEDS: ENOXAPARIN INJ 40 MG/0.4 ML SYR SQ SCH ×2 (09:41→20:58)
[2020-03-04] MEDS: oxyCODONE/ACETAMINOPHEN 5mg/325mg TAB PO PRN ×2 (09:42→20:56)
[2020-03-04] MEDS: clonazePAM 0.5 MG TAB PO PRN ×2 (09:43→20:56)
--- NOTE | 2020-03-04 11:12 | Pharmacy Report ---
Pharmacy Glycemic Short Note 2 - Date of Service March 04, 2020 - Glycemic Short BSG Results (Last 24 hours): 03/03/20 03/03/20 03/03/20 12:03 17:18 20:53 POC Glucose 119 H 89 93 03/04/20 08:17 POC Glucose 112 H OUTPATIENT ANTIDIABETIC REGIMEN: * metformin 500 mg PO BIDM * HbA1c: 8.2% (02/23/20) ASSESSMENT: 03/04 * BSGs well controlled on current insulin regimen * Fasting BSG 112 w/ 19 units Lantus on board. Lantus is likely at steady-state on current dose. No change * Post-prandial BSGs well controlled w/ current Novolog CF/CR - No change PLAN FOR INPATIENT GLYCEMIC CONTROL: no changes needed 03/01/20 * Hold outpatient oral diabetes medications * Basal insulin * Lantus 19 units SQ qAM * Bolus insulin - * NovoLog per scale ACHS or Q6hrs while NPO * Goal Range: Low 110 mg/dL - High 140 mg/dL * Correction Factor: 25 mg/dL/unit * Nutritional / Prandial insulin per carb ratio of 1 unit per 10 grams CHO consumed PLAN FOR DISCHARGE: * Reasonable HbA1c goal for most non- adults is less than 7% * HbA1c of 8.2% is elevated * Recommend continue metformin 500mg BID on discharge. Advise against upwards titration given interaction with Tivicay which increases metformin exposure and risk of lactic acidosis. 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
--- NOTE | 2020-03-04 17:44 | Hospitalist Progress Note ---
Date of Service March 04, 2020 Assessment & Plan (1) Acute hyperglycemia: H/O DM II Presented with high blood sugar around 400 is due to receiving steroid injection in the right knee joint 1 day prior to admission HbA1C:8.2 Appreciate pharmacy input and recommendation Blood glucose levels much controlled Continue Insulin therapy (2) GEGE (acute kidney injury): Likely secondary to dehydration Received IV fluids GEGE resolved Monitor renal function (3) Acute dehydration: As above (4) UTI (urinary tract infection): Urine Cx: Klebsiella pneumonia--pansensitive Completed IV ciprofloxacin course (5) Falls: PT and OT evaluation Awaiting placement (6) Hypertension: Stable (7) Chronic anemia: (8) Diabetic peripheral neuropathy associated with type 2 diabetes mellitus: (9) Major depressive disorder, recurrent severe without psychotic features: Continue home medications DVT prophylaxis Lovenox SQ CODE STATUS Full Disposition Likely discharge to rehab facility tomorrow. Case management consulted Admission and Anticipated Discharge Date Admission Date: February 22, 2020 Subjective Patient is seen and examined at bedside Anxious and upset this morning as worried about discharge "I am Homeless and have problems since many months " Otherwise no complaints Waiting for placement Denies chest pain, shortness of breath, dizziness, nausea, abdominal pain Review of Systems Review of Systems: All systems reviewed & are unremarkable except as noted in HPI & below Physical Exam Physical Exam: Physical Exam: Vitals signs as noted above General Appearance:Obese, no apparent distress Head: normocephalic, Atraumatic Eyes: normal inspection, EOMI Neck: supple, Trachea midline Respiratory/Chest: Normal breath sounds, CTA Cardiovascular: S1, S2, No murmur Abdomen/GI:Soft, Non tender, Bowel sounds present Extremities/Musculoskelatal:normal inspection, no edema, Left AKA, Right toes amputated Neurologic/Psych:AAOX3, grossly no focal neurological deficits Skin: normal color, warm Results & Data Results & Data ([facility]) Vital Signs (Past 12 Hours) Vital Signs Temp Pulse Resp BP Pulse Ox 03/04/20 16:08 36.8 C 76 16 123/75 98 03/04/20 08:06 36.9 C 70 20 116/73 98 (1) UTI (urinary tract infection) Hematuria presence: with hematuria Urinary tract infection type: acute cystitis Qualified Code(s): N30.01 - Acute cystitis with hematuria
[2020-03-04] MEDS: DESCOVY PO SCH (20:55)
[2020-03-04] MEDS: DOLUTEGRAVIR SODIUM 50 MG TAB PO SCH (20:57)
[2020-03-05] MEDS: clonazePAM 0.5 MG TAB PO PRN ×2 (08:27→20:43)
[2020-03-05] MEDS: oxyCODONE/ACETAMINOPHEN 5mg/325mg TAB PO PRN ×2 (08:27→20:43)
[2020-03-05] MEDS: ASPIRIN 81 MG ECTAB PO SCH (08:28)
[2020-03-05] MEDS: busPIRone 7.5 MG TAB PO SCH ×2 (08:29→20:39)
[2020-03-05] MEDS: fluvoxaMINE MALEATE 50 MG TAB PO SCH ×2 (08:29→20:38)
[2020-03-05] MEDS: risperiDONE 0.5 MG TABLET PO SCH ×2 (08:29→20:39)
[2020-03-05] MEDS: ENOXAPARIN INJ 40 MG/0.4 ML SYR SQ SCH ×2 (08:30→20:35)
[2020-03-05] MEDS: INSULIN GLARGINE SOLOSTAR 100 UNITS/ML 3 ML PEN SC SCH (08:56)
[2020-03-05] MEDS: INSULIN ASPART 100 UNITS/ML 3 ML PEN SC SCH ×4 (08:58→20:48)
--- NOTE | 2020-03-05 19:39 | Hospitalist Progress Note ---
Date of Service March 05, 2020 Assessment & Plan (1) Acute hyperglycemia: H/O DM II Presented with high blood sugar around 400 is due to receiving steroid injection in the right knee joint 1 day prior to admission HbA1C:8.2 Appreciate pharmacy input and recommendation Continue Insulin therapy Monitor BGs (2) GEGE (acute kidney injury): Likely secondary to dehydration Received IV fluids GEGE resolved Monitor renal function (3) Acute dehydration: As above (4) UTI (urinary tract infection): Urine Cx: Klebsiella pneumonia--pansensitive Completed IV ciprofloxacin course (5) Falls: PT and OT evaluation Awaiting placement (6) Hypertension: Stable (7) Chronic anemia: (8) Diabetic peripheral neuropathy associated with type 2 diabetes mellitus: (9) Major depressive disorder, recurrent severe without psychotic features: Continue home medications DVT prophylaxis Lovenox SQ CODE STATUS Full Disposition Plan to discharge to rehab facility when approved Case management consulted Admission and Anticipated Discharge Date Admission Date: February 22, 2020 Subjective Patient is seen and examined at bedside Less Anxious today Sitting in chair comfortably Offers no complaints Waiting for placement Denies chest pain, shortness of breath, dizziness, nausea, abdominal pain Review of Systems Review of Systems: All systems reviewed and are unremarkable except as noted below Physical Exam Physical Exam: Physical Exam: Vitals signs as noted above General Appearance:Obese, no apparent distress Head: normocephalic, Atraumatic Eyes: normal inspection, EOMI Neck: supple, Trachea midline Respiratory/Chest: Normal breath sounds, CTA Cardiovascular: S1, S2, No murmur Abdomen/GI:Soft, Non tender, Bowel sounds present Extremities/Musculoskelatal:normal inspection, no edema, Left AKA, Right toes amputated Neurologic/Psych:AAOX3, grossly no focal neurological deficits Skin: normal color, warm Results & Data Results & Data ([facility]) Vital Signs (Past 12 Hours) Vital Signs Temp Pulse Resp BP Pulse Ox 03/05/20 16:23 36.8 C 66 17 120/72 99 03/05/20 07:56 36.7 C 73 18 122/76 99 (1) UTI (urinary tract infection) Hematuria presence: with hematuria Urinary tract infection type: acute cystitis Qualified Code(s): N30.01 - Acute cystitis with hematuria
[2020-03-05] MEDS: DOLUTEGRAVIR SODIUM 50 MG TAB PO SCH (20:38)
[2020-03-05] MEDS: DESCOVY PO SCH (20:39)
[2020-03-06] MEDS: oxyCODONE/ACETAMINOPHEN 5mg/325mg TAB PO PRN ×2 (07:22→20:45)
[2020-03-06] MEDS: clonazePAM 0.5 MG TAB PO PRN ×2 (07:22→20:45)
[2020-03-06] MEDS: busPIRone 7.5 MG TAB PO SCH ×2 (09:27→20:46)
[2020-03-06] MEDS: ASPIRIN 81 MG ECTAB PO SCH (09:27)
[2020-03-06] MEDS: ENOXAPARIN INJ 40 MG/0.4 ML SYR SQ SCH ×2 (09:28→20:46)
[2020-03-06] MEDS: risperiDONE 0.5 MG TABLET PO SCH ×2 (09:28→20:46)
[2020-03-06] MEDS: fluvoxaMINE MALEATE 50 MG TAB PO SCH ×2 (09:28→20:45)
[2020-03-06] MEDS: INSULIN GLARGINE SOLOSTAR 100 UNITS/ML 3 ML PEN SC SCH (09:30)
[2020-03-06] MEDS: INSULIN ASPART 100 UNITS/ML 3 ML PEN SC SCH ×4 (09:30→20:51)
--- NOTE | 2020-03-06 11:59 | Pharmacy Report ---
Glycemic Control Progress Note - Date of Service March 06, 2020 - Scope Glycemic Pharmacist consulted for glycemic control to write orders per [facility] inpatient glycemic control protocol. - Objective Accuchecks BSG(last 24 hours):: 03/05/20 03/05/20 03/05/20 12:04 16:58 20:36 POC Glucose 145 H 105 H 131 H 03/06/20 08:30 POC Glucose 119 H HbA1c:: Hemoglobin A1c 8.2 % (4.5-5.6) H 02/23/20 06:14 - Recent Pertinent Medications The patient is currently receiving: * Basal insulin: Lantus 19 units every 24 hours * Correctional Insulin: Novolog Correction per scale ACHS Goal Range: Low 110 mg/dL - High 140 mg/dL Correction Factor: 30 mg/dL/unit * Prandial insulin: Per carb ratio of 1 unit per 10 grams CHO consumed - Outpatient Anti-Diabetic Meds METFORMIN 5000 MG BID - Assessment & Plan ASSESSMENT: * See progress note from 02/23/20 for more background info, in short: * Pt receiving SQ basal bolus insulin regimen for hyperglycemia secondary to baseline DM (outpatient regimen on hold). * Patient is currently receiving an average of 32 units of insulin per day * 19 units of basal insulin * 13 units of prandial/correctional insulin * BSGs ranging 105 - 145 mg/dl over the past 24hrs * Changes needed to insulin regimen: * AM Fasting BSG = 119 mg/dl. This is in goal range for patient based on inpatient targets and co-morbidities. Therefore Basal insulin will be continued. * Post-prandial BSGs are in range therefore no changes needed to CF/CR. * Total daily dose = 30-35 units. This dosing is yielding adequate glycemic control. PLAN FOR INPATIENT GLYCEMIC CONTROL: * Continuing Lantus 19 units SQ daily * Continuing correction factor of 30 mg/dl/unit * Continuing carb ratio of 1 unit per 10 grams CHO consumed * Continuing goal range of Low 110 mg/dL - High 140 mg/dL RECOMMENDATIONS FOR DISCHARGE: * Reasonable HbA1c goal for most non- adults is less than 7% * HbA1c of 8.2% is elevated * Recommend continue metformin 500mg BID on discharge. Advise against upwards titration given interaction with Tivicay which increases metformin exposure and risk of lactic acidosis. 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 * Support Patient Self-Management Healthy Lifestyle (diet, exercise, and smoking cessation if applicable) Disease self-management (SMBG) Prevention of complications (BP, Lipid goals, Immunizations) Consider outpatient Diabetes Self-Management Education & Support Thank you.
--- NOTE | 2020-03-06 18:34 | Hospitalist Progress Note ---
Date of Service March 06, 2020 Assessment & Plan (1) Acute hyperglycemia: H/O DM II Presented with high blood sugar around 400 is due to receiving steroid injection in the right knee joint 1 day prior to admission HbA1C:8.2 Continue Insulin therapy Monitor BGs--Well controlled Appreciate pharmacy input and recommendation (2) EGGE (acute kidney injury): Likely secondary to dehydration Received IV fluids GEGE resolved Monitor renal function (3) Acute dehydration: As above (4) UTI (urinary tract infection): Urine Cx: Klebsiella pneumonia--pansensitive Completed IV ciprofloxacin course (5) Falls: PT and OT evaluation Awaiting placement (6) Hypertension: Stable (7) Chronic anemia: (8) Diabetic peripheral neuropathy associated with type 2 diabetes mellitus: (9) Major depressive disorder, recurrent severe without psychotic features: Continue home medications DVT prophylaxis Lovenox SQ CODE STATUS Full Code Disposition Waiting for rehab placement Case management consulted Admission and Anticipated Discharge Date Admission Date: February 22, 2020 Subjective Patient is seen and examined at bedside No new complaints Waiting for placement Denies chest pain, shortness of breath, dizziness, nausea, abdominal pain Afebrile Review of Systems Review of Systems: All systems reviewed & are unremarkable except as noted in HPI & below All systems reviewed and are unremarkable except as noted below Physical Exam Physical Exam: Physical Exam: Vitals signs as noted above General Appearance:Obese, no apparent distress Head: normocephalic, Atraumatic Eyes: normal inspection, EOMI Neck: supple, Trachea midline Respiratory/Chest: Normal breath sounds, CTA Cardiovascular: S1, S2, + murmur Abdomen/GI:Soft, Non tender, Bowel sounds present Extremities/Musculoskelatal:normal inspection, no edema, Left AKA, Right toes amputated Neurologic/Psych:AAOX3, grossly no focal neurological deficits Skin: normal color, warm Results & Data Results & Data ([facility]) Vital Signs (Past 12 Hours) Vital Signs Temp Pulse Resp BP Pulse Ox 03/06/20 15:00 36.7 C 72 20 130/74 100 03/06/20 07:50 36.6 C 64 16 108/71 98 (1) UTI (urinary tract infection) Hematuria presence: with hematuria Urinary tract infection type: acute cystitis Qualified Code(s): N30.01 - Acute cystitis with hematuria
[2020-03-06] MEDS: DOLUTEGRAVIR SODIUM 50 MG TAB PO SCH (20:46)
[2020-03-06] MEDS: DESCOVY PO SCH (20:46)
[2020-03-07 07:18] LABS: BUN Creatinine Ratio 19.3 (10-20); Calcium 8.7 mg/dl (8.5-10.1); Creatinine Clr Calc Pharmacy 49.4 ml/min; Est GFR (African American) 51.9; Est GFR (Non-African American) 44.8; Potassium 4.1 mmol/L (3.5-5.1)
[2020-03-07] MEDS: INSULIN ASPART 100 UNITS/ML 3 ML PEN SC SCH ×4 (09:20→21:46)
[2020-03-07] MEDS: INSULIN GLARGINE SOLOSTAR 100 UNITS/ML 3 ML PEN SC SCH (09:21)
[2020-03-07] MEDS: ENOXAPARIN INJ 40 MG/0.4 ML SYR SQ SCH ×2 (09:23→22:06)
[2020-03-07] MEDS: clonazePAM 0.5 MG TAB PO PRN ×2 (09:23→22:05)
[2020-03-07] MEDS: oxyCODONE/ACETAMINOPHEN 5mg/325mg TAB PO PRN ×2 (09:23→22:05)
[2020-03-07] MEDS: risperiDONE 0.5 MG TABLET PO SCH ×2 (09:24→22:07)
[2020-03-07] MEDS: busPIRone 7.5 MG TAB PO SCH ×2 (09:24→22:06)
[2020-03-07] MEDS: ASPIRIN 81 MG ECTAB PO SCH (09:24)
[2020-03-07] MEDS: fluvoxaMINE MALEATE 50 MG TAB PO SCH ×2 (09:24→22:06)
--- NOTE | 2020-03-07 13:53 | Pharmacy Report ---
Pharmacy Glycemic Sign Off Nt - Date of Service March 07, 2020 - Assessment & Plan ASSESSMENT: * Pharmacy was consulted by Annie Del Cid on 02/22/2020 for glycemic control and to write orders per [facility] inpatient glycemic control protocol. * Major changes made by pharmacy to antidiabetic regimen include: * Initiation of Lantus * Initiation of Novolog * Patient has been receiving/requiring ~35 units of insulin per day for adequate glycemic control * BSGs ranging 105-145 mg/dl * Regimen has only required minor adjustments over the past 48hrs to achieve this level of control * Do not anticipate further changes in patient status that would quickly deteriorate glycemic control (i.e. patient to be NPO for upcoming procedure, steroids tapering, starting tube feedings, etc). * Please see recommendations for outpatient antidiabetic regimen below. PLAN FOR INPATIENT GLYCEMIC CONTROL: No changes needed to current regimen. * Continue basal insulin with Lantus 19 units SQ daily * Continue NovoLog per scale ACHS/Q6hrs while NPO * Goal range = 110- 140 mg/dl * CF = 30 mg/dl/unit * CR = 1 unit for ever 10 g CHO consumed * Pharmacy is signing off of glycemic consult and will no longer be making adjustments to inpatient regimen. Please feel free to re-consult if needed. Thank you. DISCHARGE RECOMMENDATIONS: * A1c 8.2 % on 02/23/20 * Reasonable HbA1c goal for most non- adults is less than 7% * HbA1c of 8.2% is elevated * Recommend continue metformin 500mg BID on discharge. Advise against upwards titration given interaction with Tivicay which increases metformin exposure and risk of lactic acidosis. * B12 supplementation may be necessary with [facility] metformin use * Recommend Initiation of Lantus 19 units daily with Novolog 5 units with meals while at [facility]. * Support Patient Self-Management Healthy Lifestyle (diet, exercise, and smoking cessation if applicable) Disease self-management (SMBG) Prevention of complications (BP, Lipid goals, Immunizations) Consider outpatient Diabetes Self-Management Education & Support
--- NOTE | 2020-03-07 18:19 | Hospitalist Progress Note ---
Date of Service March 07, 2020 Assessment & Plan (1) Acute hyperglycemia: DM type 2 usually managed with metformin. Received steroid injection right knee and presented with blood sugars > 400. Hgb A1c was 8.2. Pharmacy consulted for glycemic management. FBS today = 119. Continue Lantus + NovoLog. Anticipated resumption of metformin at time of discharge. (2) GEGE (acute kidney injury): Serum creatinine at time of admission was 1.37 and darvin as high as 1.5. Acute kidney injury, probably due to osmotic diuresis + volume depletion. Creatinine today = 1.36. Follow. (3) UTI (urinary tract infection): Urine culture grew Klebsiella pneumoniae. Treated with course of ciprofloxacin. (4) Right knee pain: Analgesics PRN. Otherwise, management per Ortho. (5) HIV disease: Continue anti-viral meds. (6) DVT prophylaxis: Continue enoxaparin. (7) Discharge planning issues: Requires skilled care. Accepted at [facility]- waiting for bed availability. Family Medicine follow-up with Dr. Theron Springer. Admission and Anticipated Discharge Date Admission Date: February 22, 2020 Subjective Recheck for diabetes and other problems. Patient seen in their room around 1030. Doing well. Blood sugars under better control. Still having right knee pain. Review of Systems: Constitutional- no fever. Cardiac- no chest pain. Pulmonary- no cough or SOB. GI- no nausea, vomiting, diarrhea, melena, hematochezia. - no urinary symptoms. Otherwise, as noted above. Physical Exam Constitutional: no acute distress Eyes: + anicteric sclerae Respiratory: normal respiratory effort, lungs clear to auscultation Cardiovascular: Rate/Rhythm: regular rate and regular rhythm Heart Sounds: + murmur (II-III/ sys murmur at base) Vessels: no JVD Extremities: no calf tenderness and no edema Gastrointestinal (Abdomen): normal bowel sounds, soft, nontender, no hepatosplenomegaly Musculoskeletal: Extremities: + extremities abnormal to inspection (LT AKA; partial amputation RT foot) and no cyanosis Skin: no rashes, warm and dry Psychiatric: Orientation: alert and oriented x 3 Results & Data Results & Data ([facility]) Vital Signs (Past 12 Hours) Vital Signs Temp Pulse Resp BP Pulse Ox 03/07/20 15:39 36.6 C 83 16 135/75 100 03/07/20 07:50 36.7 C 71 16 116/74 96 Laboratory Results Laboratory Results - last 24 hr 03/06/20 03/07/20 03/07/20 20:41 06:16 08:23 Sodium 142 Potassium 4.1 Chloride 110 H Carbon Dioxide 29 Anion Gap 3.0 BUN 25 H Creatinine 1.31 H Est Cr Clr Drug Dosing 49.4 Est GFR ( Amer) 51.9 Est GFR (Non-Af Amer) 44.8 BUN/Creatinine Ratio 19.3 Glucose 109 H POC Glucose 145 H 119 H Calcium 8.7 03/07/20 03/07/20 03/07/20 12:25 15:02 17:13 Sodium Potassium Chloride Carbon Dioxide Anion Gap BUN Creatinine Est Cr Clr Drug Dosing Est GFR ( Amer) Est GFR (Non-Af Amer) BUN/Creatinine Ratio Glucose POC Glucose 133 H 70 110 H Calcium (1) UTI (urinary tract infection) Hematuria presence: with hematuria Urinary tract infection type: acute cystitis Qualified Code(s): N30.01 - Acute cystitis with hematuria
[2020-03-07] MEDS: DESCOVY PO SCH (22:07)
[2020-03-07] MEDS: DOLUTEGRAVIR SODIUM 50 MG TAB PO SCH (22:08)
[2020-03-08] MEDS: oxyCODONE/ACETAMINOPHEN 5mg/325mg TAB PO PRN ×2 (08:20→21:01)
[2020-03-08] MEDS: clonazePAM 0.5 MG TAB PO PRN ×2 (08:21→21:02)
[2020-03-08] MEDS: risperiDONE 0.5 MG TABLET PO SCH ×2 (08:46→21:02)
[2020-03-08] MEDS: fluvoxaMINE MALEATE 50 MG TAB PO SCH ×2 (08:46→21:01)
[2020-03-08] MEDS: ASPIRIN 81 MG ECTAB PO SCH (08:46)
[2020-03-08] MEDS: busPIRone 7.5 MG TAB PO SCH ×2 (08:46→21:02)
[2020-03-08] MEDS: ENOXAPARIN INJ 40 MG/0.4 ML SYR SQ SCH ×2 (08:47→20:59)
[2020-03-08] MEDS: INSULIN GLARGINE SOLOSTAR 100 UNITS/ML 3 ML PEN SC SCH (08:50)
[2020-03-08] MEDS: INSULIN ASPART 100 UNITS/ML 3 ML PEN SC SCH ×4 (08:51→21:16)
--- NOTE | 2020-03-08 10:57 | Hospitalist Progress Note ---
Date of Service March 08, 2020 Assessment & Plan (1) Acute hyperglycemia: DM type 2 usually managed with metformin. Received steroid injection right knee and presented with blood sugars > 400. Hgb A1c was 8.2. Pharmacy consulted for glycemic management (now signed off). FBS today = 108. Continue Lantus + NovoLog, titrate dosing as necessary. Anticipated resumption of metformin at time of discharge. (2) GEGE (acute kidney injury): Serum creatinine at time of admission was 1.37 and darvin as high as 1.5. Acute kidney injury, probably due to osmotic diuresis + volume depletion. Creatinine yesterday = 1.36. Follow. (3) UTI (urinary tract infection): Urine culture grew Klebsiella pneumoniae. Treated with course of ciprofloxacin. (4) Right knee pain: Analgesics PRN. Otherwise, management per Ortho. (5) Heel pain: Avoid pressure. Waffle boot. Consult Wound Care Nursing. (6) HIV disease: Continue anti-viral meds. (7) DVT prophylaxis: Continue enoxaparin. (8) Discharge planning issues: Requires skilled care. Accepted at [facility]- waiting for bed availability. Family Medicine follow-up with Dr. Theron Springer. Admission and Anticipated Discharge Date Admission Date: February 22, 2020 Subjective Recheck for diabetes and other problems. Patient seen in their room around 0930. Doing well. Blood sugars under better control. Right knee pain controlled with analgesics. Right posterior heel feels a bit sore. Review of Systems: Constitutional- no fever. Cardiac- no chest pain. Pulmonary- no cough or SOB. GI- no nausea, vomiting, diarrhea, melena, hematochezia. - no urinary symptoms. Otherwise, as noted above. Physical Exam Constitutional: no acute distress Eyes: + anicteric sclerae Respiratory: normal respiratory effort, lungs clear to auscultation Cardiovascular: Rate/Rhythm: regular rate and regular rhythm Heart Sounds: + murmur (II-III/ sys murmur at base) Vessels: no JVD Extremities: no calf tenderness and no edema Gastrointestinal (Abdomen): normal bowel sounds, soft, nontender, no hepatosplenomegaly Musculoskeletal: Extremities: + foot abnormality (unable to examine heel due to positioning (sitting in chair)); + extremities abnormal to inspection (LT AKA; partial amputation RT foot) and no cyanosis Hip: hip normal to inspection (wearing immobilizer) Skin: no rashes, warm and dry Psychiatric: Orientation: alert and oriented x 3 Results & Data Results & Data ([facility]) Vital Signs (Past 12 Hours) Vital Signs Temp Pulse Resp BP BP Pulse Ox 03/08/20 07:34 36.8 C 73 18 113/73 100 03/07/20 23:18 37 C 68 16 92/57 L 97 Laboratory Results Laboratory Results - last 24 hr 03/07/20 03/07/20 03/07/20 12:25 15:02 17:13 POC Glucose 133 H 70 110 H 03/07/20 03/08/20 20:48 08:14 POC Glucose 101 H 108 H (1) UTI (urinary tract infection) Hematuria presence: with hematuria Urinary tract infection type: acute cystitis Qualified Code(s): N30.01 - Acute cystitis with hematuria
[2020-03-08] MEDS: DESCOVY PO SCH (21:00)
[2020-03-08] MEDS: DOLUTEGRAVIR SODIUM 50 MG TAB PO SCH (21:01)
[2020-03-09] MEDS: clonazePAM 0.5 MG TAB PO PRN ×2 (07:28→20:48)
[2020-03-09] MEDS: oxyCODONE/ACETAMINOPHEN 5mg/325mg TAB PO PRN ×2 (07:28→20:47)
[2020-03-09 07:45] LABS: Hemoglobin 12.2 g/dL (12.0-16.0); Mean Corpuscular Hemoglobin 30.2 pg (25-34); Mean Corpuscular Hgb Conc 31.3 g/dL (32-36); Mean Corpuscular Volume 96.5 fL (80-100); Mean Platelet Volume 9.3 fL (7.4-10.4); Platelet Count 224 K/uL (130-400); RDW Coefficient of Variation 12.6 % (11.5-14.5); RDW Standard Deviation 44.3 fL (36.4-46.3); Red Blood Count 4.04 M/uL (4.2-5.4); White Blood Count 3.84 K/uL (4.8-10.8)
[2020-03-09 08:07] LABS: BUN Creatinine Ratio 17.8 (10-20); Calcium 8.8 mg/dl (8.5-10.1); Creatinine Clr Calc Pharmacy 49.4 ml/min; Est GFR (African American) 51.9; Est GFR (Non-African American) 44.8; Potassium 4.2 mmol/L (3.5-5.1)
--- NOTE | 2020-03-09 09:01 | Hospitalist Progress Note ---
Date of Service March 09, 2020 Assessment & Plan (1) Acute hyperglycemia: DM type 2 usually managed with metformin. Received steroid injection right knee and presented with blood sugars > 400. Hgb A1c was 8.2. Pharmacy consulted for glycemic management (now signed off). FBS today = 124. Continue Lantus + NovoLog, titrate dosing as necessary. Anticipated resumption of metformin at time of discharge. (2) GEGE (acute kidney injury): Serum creatinine at time of admission was 1.37 and darvin as high as 1.5. Acute kidney injury, probably due to osmotic diuresis + volume depletion. Creatinine today = 1.31. Follow. (3) UTI (urinary tract infection): Urine culture grew Klebsiella pneumoniae. Treated with course of ciprofloxacin. (4) Right knee pain: Analgesics PRN. Otherwise, management per Ortho. (5) Heel pain: Avoid pressure. Waffle boot. Consult Wound Care Nursing. (6) HIV disease: Continue anti-viral meds. (7) DVT prophylaxis: Continue enoxaparin. (8) Discharge planning issues: Requires skilled care. Accepted at [facility]- waiting for bed availability. Family Medicine follow-up with Dr. Theron Springer. Admission and Anticipated Discharge Date Admission Date: February 22, 2020 Subjective Recheck for diabetes and other problems. Patient seen in their room around 0820. Doing well. Blood sugars well-controlled. Right knee pain improved. Review of Systems: Constitutional- no fever. Cardiac- no chest pain. Pulmonary- no cough or SOB. GI- constipated- last BM about 4 days ago; no nausea, vomiting, diarrhea, melena, hematochezia. - no urinary symptoms. Otherwise, as noted above. Physical Exam Constitutional: no acute distress Eyes: + anicteric sclerae Respiratory: normal respiratory effort, lungs clear to auscultation Cardiovascular: Rate/Rhythm: regular rate and regular rhythm Heart Sounds: + murmur (II-III/ sys murmur at base) Vessels: no JVD Extremities: no calf tenderness and no edema Gastrointestinal (Abdomen): normal bowel sounds, soft, nontender, no hepatosplenomegaly Musculoskeletal: Extremities: + foot abnormality (unable to examine heel due to positioning (sitting in chair)); + extremities abnormal to inspection (LT AKA; partial amputation RT foot) and no cyanosis Knee: + knee abnormal to inspection (wearing RT knee brace) Skin: no rashes, warm and dry Psychiatric: Orientation: alert and oriented x 3 Results & Data Results & Data ([facility]) Vital Signs (Past 12 Hours) Vital Signs Temp Pulse Resp BP BP Pulse Ox 03/09/20 07:45 36.3 C L 74 18 128/76 97 03/08/20 22:55 36.8 C 61 15 94/59 L 93 Laboratory Results Laboratory Results - last 24 hr 03/09/20 03/09/20 03/09/20 07:32 07:32 08:23 WBC 3.84 L RBC 4.04 L Hgb 12.2 Hct 39.0 MCV 96.5 MCH 30.2 MCHC 31.3 L RDW Std Deviation 44.3 RDW Coeff of [place] 12.6 Plt Count 224 MPV 9.3 Sodium 141 Potassium 4.2 Chloride 110 H Carbon Dioxide 28 Anion Gap 3.0 BUN 23 H Creatinine 1.31 H Est Cr Clr Drug Dosing 49.4 Est GFR ( Amer) 51.9 Est GFR (Non-Af Amer) 44.8 BUN/Creatinine Ratio 17.8 Glucose 114 H POC Glucose 124 H Calcium 8.8 03/09/20 03/09/20 03/09/20 12:13 16:53 20:01 WBC RBC Hgb Hct MCV MCH MCHC RDW Std Deviation RDW Coeff of [place] Plt Count MPV Sodium Potassium Chloride Carbon Dioxide Anion Gap BUN Creatinine Est Cr Clr Drug Dosing Est GFR ( Amer) Est GFR (Non-Af Amer) BUN/Creatinine Ratio Glucose POC Glucose 117 H 92 168 H Calcium (1) UTI (urinary tract infection) Hematuria presence: with hematuria Urinary tract infection type: acute cystitis Qualified Code(s): N30.01 - Acute cystitis with hematuria
[2020-03-09] MEDS: ASPIRIN 81 MG ECTAB PO SCH (09:07)
[2020-03-09] MEDS: busPIRone 7.5 MG TAB PO SCH ×2 (09:07→20:41)
[2020-03-09] MEDS: risperiDONE 0.5 MG TABLET PO SCH ×2 (09:07→20:41)
[2020-03-09] MEDS: fluvoxaMINE MALEATE 50 MG TAB PO SCH ×2 (09:07→20:41)
[2020-03-09] MEDS: ENOXAPARIN INJ 40 MG/0.4 ML SYR SQ SCH ×2 (09:08→20:41)
[2020-03-09] MEDS: INSULIN GLARGINE SOLOSTAR 100 UNITS/ML 3 ML PEN SC SCH (09:08)
[2020-03-09] MEDS: INSULIN ASPART 100 UNITS/ML 3 ML PEN SC SCH ×4 (09:09→20:45)
[2020-03-09] MEDS: DESCOVY PO SCH (20:40)
[2020-03-09] MEDS: DOLUTEGRAVIR SODIUM 50 MG TAB PO SCH (20:41)
[2020-03-10] MEDS: oxyCODONE/ACETAMINOPHEN 5mg/325mg TAB PO PRN (07:02)
--- NOTE | 2020-03-10 08:34 | Hospitalist Progress Note ---
Date of Service March 10, 2020 Assessment & Plan (1) Acute hyperglycemia: DM type 2 usually managed with metformin. Received steroid injection right knee and presented with blood sugars > 400. Hgb A1c was 8.2. Pharmacy consulted for glycemic management (now signed off). FBS today = 112. Continue Lantus + NovoLog, titrate dosing as necessary. Anticipated resumption of metformin at time of discharge. (2) GEGE (acute kidney injury): Serum creatinine at time of admission was 1.37 and darvin as high as 1.5. Acute kidney injury, probably due to osmotic diuresis + volume depletion. Creatinine yesterday = 1.31. Follow. (3) UTI (urinary tract infection): Urine culture grew Klebsiella pneumoniae. Treated with course of ciprofloxacin. (4) Right knee pain: Pain not adequately controlled on current regimen. Try scheduled acetaminophen TID + oxycodone PRN + diclofenac gel. Otherwise, management per Ortho. (5) Heel pain: Soft area right inferoposterior heel measuring ~ 1.5 cm. Avoid pressure. Waffle boot. Consult Wound Care Nursing. (6) HIV disease: Continue anti-viral meds. (7) DVT prophylaxis: Continue enoxaparin. (8) Discharge planning issues: Requires skilled care. Accepted at [facility]- waiting for bed availability. Family Medicine follow-up with Dr. Theron Springer. Admission and Anticipated Discharge Date Admission Date: February 22, 2020 Subjective Recheck for diabetes and other problems. Patient seen in their room around 0810. Doing well. Blood sugars well-controlled. Right knee pain not well controlled with current analgesic regimen. Review of Systems: Constitutional- no fever. Cardiac- no chest pain. Pulmonary- no cough or SOB. GI- had bowel movement after several days; no nausea, vomiting, diarrhea, melena, hematochezia. - no urinary symptoms. Otherwise, as noted above. Physical Exam Constitutional: no acute distress Eyes: + anicteric sclerae Respiratory: normal respiratory effort, lungs clear to auscultation Cardiovascular: Rate/Rhythm: regular rate and regular rhythm Heart Sounds: + murmur (I-II/ sys murmur at base) Vessels: no JVD Extremities: no calf tenderness and no edema Gastrointestinal (Abdomen): normal bowel sounds, soft, nontender, no hepatosplenomegaly Musculoskeletal: Extremities: + foot abnormality (soft area right inferoposterior heel measuring ~ 1.5 cm); + extremities abnormal to inspection (LT AKA; partial amputation RT foot) and no cyanosis Hip: hip normal to inspection (wearing immobilizer) Knee: + knee abnormal to inspection (wearing RT knee brace) Skin: no rashes, warm and dry + wound (soft area right inferoposterior heel measuring ~ 1.5 cm) Psychiatric: Orientation: alert and oriented x 3 Results & Data Results & Data ([facility]) Vital Signs (Past 12 Hours) Vital Signs Temp Pulse Resp BP Pulse Ox 03/10/20 07:36 36.5 C 67 18 117/74 95 03/09/20 22:15 36.6 C 81 18 129/75 98 Laboratory Results Laboratory Results - last 24 hr 03/09/20 03/09/20 03/09/20 12:13 16:53 20:01 POC Glucose 117 H 92 168 H 03/10/20 08:18 POC Glucose 112 H (1) UTI (urinary tract infection) Hematuria presence: with hematuria Urinary tract infection type: acute cystitis Qualified Code(s): N30.01 - Acute cystitis with hematuria
[2020-03-10] MEDS: clonazePAM 0.5 MG TAB PO PRN ×2 (09:26→21:26)
[2020-03-10] MEDS: busPIRone 7.5 MG TAB PO SCH ×2 (09:26→20:58)
[2020-03-10] MEDS: risperiDONE 0.5 MG TABLET PO SCH ×2 (09:26→20:59)
[2020-03-10] MEDS: fluvoxaMINE MALEATE 50 MG TAB PO SCH ×2 (09:26→20:57)
[2020-03-10] MEDS: ASPIRIN 81 MG ECTAB PO SCH (09:26)
[2020-03-10] MEDS: ENOXAPARIN INJ 40 MG/0.4 ML SYR SQ SCH ×2 (09:27→20:58)
[2020-03-10] MEDS: INSULIN GLARGINE SOLOSTAR 100 UNITS/ML 3 ML PEN SC SCH (09:30)
[2020-03-10] MEDS: INSULIN ASPART 100 UNITS/ML 3 ML PEN SC SCH ×4 (09:30→21:34)
[2020-03-10] MEDS: DOCUSATE SODIUM/SENNA 50/8.6MG TAB PO SCH ×2 (10:13→20:59)
[2020-03-10] MEDS: DICLOFENAC SOD 1% GEL 100 GM TUBE EXT SCH ×2 (12:53→21:00)
[2020-03-10] MEDS: ACETAMINOPHEN 500 MG TAB PO SCH ×2 (15:06→21:34)
[2020-03-10] MEDS: DESCOVY PO SCH (20:58)
[2020-03-10] MEDS: DOLUTEGRAVIR SODIUM 50 MG TAB PO SCH (20:59)
[2020-03-10] MEDS: ACETAMINOPHEN 325 MG TAB PO PRN (21:26)
[2020-03-11] MEDS: ASPIRIN 81 MG ECTAB PO SCH (08:51)
[2020-03-11] MEDS: risperiDONE 0.5 MG TABLET PO SCH ×2 (08:51→20:22)
[2020-03-11] MEDS: fluvoxaMINE MALEATE 50 MG TAB PO SCH ×2 (08:51→20:23)
[2020-03-11] MEDS: busPIRone 7.5 MG TAB PO SCH ×2 (08:51→20:23)
[2020-03-11] MEDS: clonazePAM 0.5 MG TAB PO PRN ×2 (08:51→20:21)
[2020-03-11] MEDS: ENOXAPARIN INJ 40 MG/0.4 ML SYR SQ SCH ×2 (08:52→20:22)
[2020-03-11] MEDS: ACETAMINOPHEN 500 MG TAB PO SCH ×3 (08:52→20:21)
[2020-03-11] MEDS: DICLOFENAC SOD 1% GEL 100 GM TUBE EXT SCH ×2 (08:53→20:25)
[2020-03-11] MEDS: INSULIN ASPART 100 UNITS/ML 3 ML PEN SC SCH ×4 (08:54→21:47)
[2020-03-11] MEDS: INSULIN GLARGINE SOLOSTAR 100 UNITS/ML 3 ML PEN SC SCH (08:54)
[2020-03-11] MEDS: DOCUSATE SODIUM/SENNA 50/8.6MG TAB PO SCH ×2 (08:59→20:25)
[2020-03-11] MEDS: DOLUTEGRAVIR SODIUM 50 MG TAB PO SCH (20:23)
[2020-03-11] MEDS: DESCOVY PO SCH (20:24)
--- NOTE | 2020-03-11 21:13 | Hospitalist Progress Note ---
Date of Service March 11, 2020 Assessment & Plan (1) Acute hyperglycemia: DM type 2 usually managed with metformin. Received steroid injection right knee and presented with blood sugars > 400. Hgb A1c was 8.2. Pharmacy consulted for glycemic management (now signed off). FBS today = 107. Continue Lantus + NovoLog, titrate dosing as necessary. Anticipated resumption of metformin at time of discharge. (2) GEGE (acute kidney injury): Serum creatinine at time of admission was 1.37 and darvin as high as 1.5. Acute kidney injury, probably due to osmotic diuresis + volume depletion. Creatinine 03/09 = 1.31. Follow. (3) UTI (urinary tract infection): Urine culture grew Klebsiella pneumoniae. Treated with course of ciprofloxacin. (4) Right knee pain: Pain not adequately controlled on current regimen. Try scheduled acetaminophen TID + oxycodone PRN + diclofenac gel. Otherwise, management per Ortho. (5) Heel pain: Soft area right inferoposterior heel measuring ~ 1.5 cm. Avoid pressure. Waffle boot. Consulted Wound Care Nursing. (6) HIV disease: Continue anti-viral meds. (7) DVT prophylaxis: Continue enoxaparin. (8) Discharge planning issues: Requires skilled care. Accepted at [facility]- waiting for bed availability. Family Medicine follow-up with Dr. Theron Springer. Admission and Anticipated Discharge Date Admission Date: February 22, 2020 Subjective Recheck for diabetes and other problems. Patient seen in their room around 1040. Doing well. Blood sugars well-controlled. Right knee pain under better control with modification of analgesic regimen. Review of Systems: Constitutional- no fever. Cardiac- no chest pain. Pulmonary- no cough or SOB. GI- no nausea, vomiting, diarrhea, melena, hematochezia. - no urinary symptoms. Otherwise, as noted above. Physical Exam Constitutional: no acute distress Eyes: + anicteric sclerae Respiratory: normal respiratory effort, lungs clear to auscultation Cardiovascular: Rate/Rhythm: regular rate and regular rhythm Heart Sounds: + murmur (I-II/ sys murmur at base) Vessels: no JVD Extremities: no calf tenderness and no edema Gastrointestinal (Abdomen): normal bowel sounds, soft, nontender, no hepatosplenomegaly Musculoskeletal: Extremities: + foot abnormality (soft area right inferoposterior heel measuring ~ 1.5 cm); + extremities abnormal to inspection (LT AKA; partial amputation RT foot) and no cyanosis Hip: hip normal to inspection (wearing immobilizer) Knee: + knee abnormal to inspection (wearing RT knee brace) Skin: no rashes, warm and dry + wound (soft area right inferoposterior heel measuring ~ 1.5 cm (per exam )) Psychiatric: Orientation: alert and oriented x 3 Results & Data Results & Data ([facility]) Vital Signs (Past 12 Hours) Vital Signs Temp Pulse Resp BP Pulse Ox 03/11/20 15:09 36.6 C 75 16 151/92 H 96 (1) UTI (urinary tract infection) Hematuria presence: with hematuria Urinary tract infection type: acute cystitis Qualified Code(s): N30.01 - Acute cystitis with hematuria
[2020-03-12] MEDS: oxyCODONE HCL IR 5 MG TAB (IMMEDIATE RELEASE) PO PRN ×3 (07:45→21:01)
[2020-03-12] MEDS: clonazePAM 0.5 MG TAB PO PRN ×2 (07:45→21:01)
[2020-03-12] MEDS: ACETAMINOPHEN 500 MG TAB PO SCH ×3 (09:36→20:59)
[2020-03-12] MEDS: busPIRone 7.5 MG TAB PO SCH ×2 (09:36→21:00)
[2020-03-12] MEDS: ENOXAPARIN INJ 40 MG/0.4 ML SYR SQ SCH ×2 (09:37→21:00)
[2020-03-12] MEDS: risperiDONE 0.5 MG TABLET PO SCH ×2 (09:37→20:59)
[2020-03-12] MEDS: DOCUSATE SODIUM/SENNA 50/8.6MG TAB PO SCH ×2 (09:37→20:59)
[2020-03-12] MEDS: fluvoxaMINE MALEATE 50 MG TAB PO SCH ×2 (09:37→21:00)
[2020-03-12] MEDS: ASPIRIN 81 MG ECTAB PO SCH (09:37)
[2020-03-12] MEDS: DICLOFENAC SOD 1% GEL 100 GM TUBE EXT SCH ×2 (09:38→21:01)
[2020-03-12] MEDS: INSULIN ASPART 100 UNITS/ML 3 ML PEN SC SCH ×4 (09:39→21:13)
[2020-03-12] MEDS: INSULIN GLARGINE SOLOSTAR 100 UNITS/ML 3 ML PEN SC SCH (09:40)
--- NOTE | 2020-03-12 13:03 | Hospitalist Progress Note ---
Date of Service March 12, 2020 Assessment & Plan (1) Acute hyperglycemia: H/O DM II Presented with high blood sugar around 400 is due to receiving steroid injection in the right knee joint 1 day prior to admission HbA1C:8.2 Continue Insulin therapy Monitor BGs Appreciate pharmacy input and recommendations Plan to resume Metformin upon discharge (2) GEGE (acute kidney injury): Likely secondary to dehydration Received IV fluids GEGE resolved Monitor renal function (3) Acute dehydration: As above (4) UTI (urinary tract infection): Urine Cx: Klebsiella pneumonia--pansensitive Completed IV ciprofloxacin course (5) Falls: PT and OT evaluation Awaiting Rehab placement (6) Hypertension: Stable (7) Chronic anemia: (8) Diabetic peripheral neuropathy associated with type 2 diabetes mellitus: (9) Major depressive disorder, recurrent severe without psychotic features: Continue home medications Right Heel Pain Pain control Continue Waffle Boot HIV disease Continue antiviral medications DVT prophylaxis Lovenox SQ CODE STATUS Full Code Disposition Waiting for rehab placement Case management working on placement Admission and Anticipated Discharge Date Admission Date: February 22, 2020 Subjective Patient seen and examined at bedside Complains of right leg pain overnight which improved currently Denies any chest pain, shortness of breath, dizziness, nausea, abdominal pain Offers no other complaints Sitting in chair comfortably Waiting for rehab placement Review of Systems Review of Systems: All systems reviewed & are unremarkable except as noted in HPI & below Physical Exam Physical Exam: Physical Exam: Vitals signs as noted above General Appearance:Obese, no apparent distress Head: normocephalic, Atraumatic Eyes: normal inspection, EOMI Neck: supple, Trachea midline Respiratory/Chest: Normal breath sounds, CTA Cardiovascular: S1, S2, + murmur Abdomen/GI:Soft, Non tender, Bowel sounds present Extremities/Musculoskelatal:normal inspection, no edema, Left AKA, Right toes amputated Neurologic/Psych:AAOX3, grossly no focal neurological deficits Skin: normal color, warm Results & Data Results & Data ([facility]) Vital Signs (Past 12 Hours) Vital Signs Temp Pulse Resp BP Pulse Ox 03/12/20 07:22 36.8 C 91 H 18 147/84 H 95 (1) UTI (urinary tract infection) Hematuria presence: with hematuria Urinary tract infection type: acute cystitis Qualified Code(s): N30.01 - Acute cystitis with hematuria
[2020-03-12] MEDS: MICONAZOLE NITRATE POWDER 43 GM EXT PRN (18:15)
[2020-03-12] MEDS: DOLUTEGRAVIR SODIUM 50 MG TAB PO SCH (20:59)
[2020-03-12] MEDS: DESCOVY PO SCH ×2 (21:02→21:04)
[2020-03-13] MEDS: oxyCODONE HCL IR 5 MG TAB (IMMEDIATE RELEASE) PO PRN ×3 (05:47→20:47)
[2020-03-13] MEDS: busPIRone 7.5 MG TAB PO SCH ×2 (08:08→20:46)
[2020-03-13] MEDS: fluvoxaMINE MALEATE 50 MG TAB PO SCH ×2 (08:08→20:47)
[2020-03-13] MEDS: ASPIRIN 81 MG ECTAB PO SCH (08:08)
[2020-03-13] MEDS: risperiDONE 0.5 MG TABLET PO SCH ×2 (08:09→20:47)
[2020-03-13] MEDS: DOCUSATE SODIUM/SENNA 50/8.6MG TAB PO SCH ×2 (08:09→20:46)
[2020-03-13] MEDS: ACETAMINOPHEN 500 MG TAB PO SCH ×3 (08:09→20:46)
[2020-03-13] MEDS: ENOXAPARIN INJ 40 MG/0.4 ML SYR SQ SCH ×2 (08:10→20:47)
[2020-03-13] MEDS: DICLOFENAC SOD 1% GEL 100 GM TUBE EXT SCH ×2 (08:11→20:49)
[2020-03-13] MEDS: clonazePAM 0.5 MG TAB PO PRN ×2 (08:16→20:47)
[2020-03-13] MEDS: INSULIN ASPART 100 UNITS/ML 3 ML PEN SC SCH ×4 (08:54→20:56)
[2020-03-13] MEDS: INSULIN GLARGINE SOLOSTAR 100 UNITS/ML 3 ML PEN SC SCH (08:59)
--- NOTE | 2020-03-13 19:40 | Hospitalist Progress Note ---
Date of Service March 13, 2020 Assessment & Plan (1) Acute hyperglycemia: H/O DM II Presented with high blood sugar around 400 is due to receiving steroid injection in the right knee joint 1 day prior to admission HbA1C:8.2 Continue Insulin therapy Monitor BGs Appreciate pharmacy input and recommendations Plan to resume Metformin upon discharge (2) GEGE (acute kidney injury): Likely secondary to dehydration Received IV fluids GEGE resolved Monitor renal function (3) Acute dehydration: As above (4) UTI (urinary tract infection): Urine Cx: Klebsiella pneumonia--pansensitive Completed IV ciprofloxacin course (5) Falls: PT and OT evaluation Awaiting Rehab placement (6) Hypertension: Stable (7) Chronic anemia: (8) Diabetic peripheral neuropathy associated with type 2 diabetes mellitus: (9) Major depressive disorder, recurrent severe without psychotic features: Continue home medications Right Heel Pain Pain control Continue Waffle Boot HIV disease Continue antiviral medications DVT prophylaxis Lovenox SQ CODE STATUS Full Code Disposition Waiting for rehab placement Case management working on placement Admission and Anticipated Discharge Date Admission Date: February 22, 2020 Subjective Patient seen and examined at bedside Sitting in chair comfortably this morning Right leg pain is controlled with medication No new complaints Denies any chest pain, shortness of breath, dizziness, nausea, abdominal pain Waiting for rehab placement Review of Systems Review of Systems: All systems reviewed & are unremarkable except as noted in HPI & below Physical Exam Physical Exam: Physical Exam: Vitals signs as noted above General Appearance:Obese, no apparent distress Head: normocephalic, Atraumatic Eyes: normal inspection, EOMI Neck: supple, Trachea midline Respiratory/Chest: Normal breath sounds, CTA Cardiovascular: S1, S2, + murmur Abdomen/GI:Soft, Non tender, Bowel sounds present Extremities/Musculoskelatal:normal inspection, no edema, Left AKA, Right toes amputated Neurologic/Psych:AAOX3, grossly no focal neurological deficits Skin: normal color, warm Results & Data Results & Data ([facility]) Vital Signs (Past 12 Hours) Vital Signs Temp Pulse Resp BP Pulse Ox 03/13/20 15:30 37.4 C 73 17 99/68 L 95 (1) UTI (urinary tract infection) Hematuria presence: with hematuria Urinary tract infection type: acute cystitis Qualified Code(s): N30.01 - Acute cystitis with hematuria
[2020-03-13] MEDS: DOLUTEGRAVIR SODIUM 50 MG TAB PO SCH (20:48)
[2020-03-13] MEDS: DESCOVY PO SCH (20:51)
[2020-03-14] MEDS: INSULIN ASPART 100 UNITS/ML 3 ML PEN SC SCH ×4 (09:26→20:39)
[2020-03-14] MEDS: busPIRone 7.5 MG TAB PO SCH ×2 (09:32→20:10)
[2020-03-14] MEDS: ASPIRIN 81 MG ECTAB PO SCH (09:32)
[2020-03-14] MEDS: INSULIN GLARGINE SOLOSTAR 100 UNITS/ML 3 ML PEN SC SCH (09:33)
[2020-03-14] MEDS: ENOXAPARIN INJ 40 MG/0.4 ML SYR SQ SCH ×2 (09:33→20:09)
[2020-03-14] MEDS: fluvoxaMINE MALEATE 50 MG TAB PO SCH ×2 (09:34→20:10)
[2020-03-14] MEDS: ACETAMINOPHEN 500 MG TAB PO SCH ×3 (09:35→20:10)
[2020-03-14] MEDS: DOCUSATE SODIUM/SENNA 50/8.6MG TAB PO SCH ×2 (09:35→20:09)
[2020-03-14] MEDS: risperiDONE 0.5 MG TABLET PO SCH ×2 (09:35→20:09)
[2020-03-14] MEDS: DICLOFENAC SOD 1% GEL 100 GM TUBE EXT SCH ×2 (09:37→20:09)
[2020-03-14] MEDS: clonazePAM 0.5 MG TAB PO PRN ×2 (09:40→20:08)
[2020-03-14] MEDS: oxyCODONE HCL IR 5 MG TAB (IMMEDIATE RELEASE) PO PRN ×2 (09:41→20:08)
--- NOTE | 2020-03-14 19:03 | Hospitalist Progress Note ---
Date of Service March 14, 2020 Assessment & Plan (1) Acute hyperglycemia: H/O DM II Presented with high blood sugar around 400 is due to receiving steroid injection in the right knee joint 1 day prior to admission HbA1C:8.2 Continue Insulin therapy Appreciate pharmacy input and recommendations Plan to resume Metformin upon discharge Monitor BGs (2) GEGE (acute kidney injury): Likely secondary to dehydration Received IV fluids GEGE resolved Monitor renal function (3) Acute dehydration: As above (4) UTI (urinary tract infection): Urine Cx: Klebsiella pneumonia--pansensitive Completed IV ciprofloxacin course (5) Falls: PT and OT evaluation Waiting Rehab placement (6) Hypertension: Stable (7) Chronic anemia: (8) Diabetic peripheral neuropathy associated with type 2 diabetes mellitus: (9) Major depressive disorder, recurrent severe without psychotic features: Continue home medications Right Heel Pain Pain control Continue Waffle Boot HIV disease Continue antiviral medications DVT prophylaxis Lovenox SQ CODE STATUS Full Code Disposition Waiting for rehab placement Case management working on placement Admission and Anticipated Discharge Date Admission Date: February 22, 2020 Subjective Patient seen and examined at bedside Reports intermittent leg pain No other complaints Denies any chest pain, dyspnea, dizziness, nausea, abdominal pain Waiting for rehab placement Review of Systems Review of Systems: All systems reviewed and are unremarkable except as noted below Physical Exam Physical Exam: Physical Exam: Vitals signs as noted above General Appearance:Obese, no apparent distress Head: normocephalic, Atraumatic Eyes: normal inspection, EOMI Neck: supple, Trachea midline Respiratory/Chest: Normal breath sounds, CTA Cardiovascular: S1, S2, + murmur Abdomen/GI:Soft, Non tender, Bowel sounds present Extremities/Musculoskelatal:normal inspection, no edema, Left AKA, Right toes amputated Neurologic/Psych:AAOX3, grossly no focal neurological deficits Skin: normal color, warm Results & Data Results & Data ([facility]) Vital Signs (Past 12 Hours) Vital Signs Temp Pulse Resp BP Pulse Ox 03/14/20 15:47 36.8 C 69 16 102/66 95 03/14/20 07:08 36.9 C 80 16 100/67 95 (1) UTI (urinary tract infection) Hematuria presence: with hematuria Urinary tract infection type: acute cystitis Qualified Code(s): N30.01 - Acute cystitis with hematuria
[2020-03-14] MEDS: DOLUTEGRAVIR SODIUM 50 MG TAB PO SCH (20:09)
[2020-03-14] MEDS: DESCOVY PO SCH (20:10)
[2020-03-15] MEDS: INSULIN ASPART 100 UNITS/ML 3 ML PEN SC SCH ×4 (08:43→21:51)
[2020-03-15] MEDS: busPIRone 7.5 MG TAB PO SCH ×2 (08:46→20:38)
[2020-03-15] MEDS: ASPIRIN 81 MG ECTAB PO SCH (08:46)
[2020-03-15] MEDS: INSULIN GLARGINE SOLOSTAR 100 UNITS/ML 3 ML PEN SC SCH (08:47)
[2020-03-15] MEDS: ENOXAPARIN INJ 40 MG/0.4 ML SYR SQ SCH ×2 (08:47→20:38)
[2020-03-15] MEDS: risperiDONE 0.5 MG TABLET PO SCH ×2 (08:48→20:38)
[2020-03-15] MEDS: fluvoxaMINE MALEATE 50 MG TAB PO SCH ×2 (08:48→20:38)
[2020-03-15] MEDS: DOCUSATE SODIUM/SENNA 50/8.6MG TAB PO SCH ×2 (08:49→20:38)
[2020-03-15] MEDS: ACETAMINOPHEN 500 MG TAB PO SCH ×3 (08:49→20:37)
[2020-03-15] MEDS: DICLOFENAC SOD 1% GEL 100 GM TUBE EXT SCH ×2 (08:50→20:39)
[2020-03-15] MEDS: clonazePAM 0.5 MG TAB PO PRN ×2 (08:50→20:38)
[2020-03-15] MEDS: MICONAZOLE NITRATE POWDER 43 GM EXT PRN ×2 (08:51→20:40)
[2020-03-15] MEDS: oxyCODONE HCL IR 5 MG TAB (IMMEDIATE RELEASE) PO PRN ×2 (08:51→20:38)
--- NOTE | 2020-03-15 14:47 | Hospitalist Progress Note ---
Date of Service March 15, 2020 Assessment & Plan (1) Acute hyperglycemia: H/O DM II Presented with high blood sugar around 400 is due to receiving steroid injection in the right knee joint 1 day prior to admission HbA1C:8.2 Continue Insulin therapy Appreciate pharmacy input and recommendations Plan to resume Metformin upon discharge Monitor BGs Blood Glucose levels are better controlled currently (2) GEGE (acute kidney injury): Likely secondary to dehydration Received IV fluids Monitor renal function Resolved (3) Acute dehydration: As above (4) UTI (urinary tract infection): Urine Cx: Klebsiella pneumonia--pansensitive Completed IV ciprofloxacin course (5) Falls: PT and OT evaluation Waiting Rehab placement (6) Hypertension: Stable (7) Chronic anemia: (8) Diabetic peripheral neuropathy associated with type 2 diabetes mellitus: (9) Major depressive disorder, recurrent severe without psychotic features: Continue home medications Right Heel Pain Pain control Continue Waffle Boot HIV disease Continue antiviral medications DVT prophylaxis Lovenox SQ CODE STATUS Full Code Disposition Waiting for rehab placement Case management working on placement Admission and Anticipated Discharge Date Admission Date: February 22, 2020 Subjective Patient is seen and examined at bedside States feeling better today No complaints Denies any leg pain today Also denies chest pain, dyspnea, dizziness, nausea, abdominal pain Waiting for rehab placement Review of Systems Review of Systems: All systems reviewed & are unremarkable except as noted in HPI & below Physical Exam Physical Exam: Physical Exam: Vitals signs as noted above General Appearance:Obese, no apparent distress Head: normocephalic, Atraumatic Eyes: normal inspection, EOMI Neck: supple, Trachea midline Respiratory/Chest: Normal breath sounds, CTA Cardiovascular: S1, S2, + murmur Abdomen/GI:Soft, Non tender, Bowel sounds present Extremities/Musculoskelatal:normal inspection, no edema, Left AKA, Right toes amputated Neurologic/Psych:AAOX3, grossly no focal neurological deficits Skin: normal color, warm Results & Data Results & Data ([facility]) Vital Signs (Past 12 Hours) Vital Signs Temp Pulse Resp BP Pulse Ox 03/15/20 07:29 36.4 C L 66 16 109/72 97 (1) UTI (urinary tract infection) Hematuria presence: with hematuria Urinary tract infection type: acute cystitis Qualified Code(s): N30.01 - Acute cystitis with hematuria
[2020-03-15] MEDS: DOLUTEGRAVIR SODIUM 50 MG TAB PO SCH (20:37)
[2020-03-15] MEDS: DESCOVY PO SCH (20:41)
[2020-03-16] MEDS: INSULIN ASPART 100 UNITS/ML 3 ML PEN SC SCH ×4 (08:30→21:07)
[2020-03-16] MEDS: ASPIRIN 81 MG ECTAB PO SCH (08:32)
[2020-03-16] MEDS: busPIRone 7.5 MG TAB PO SCH ×2 (08:32→20:16)
[2020-03-16] MEDS: ENOXAPARIN INJ 40 MG/0.4 ML SYR SQ SCH ×2 (08:33→20:16)
[2020-03-16] MEDS: INSULIN GLARGINE SOLOSTAR 100 UNITS/ML 3 ML PEN SC SCH (08:33)
[2020-03-16] MEDS: risperiDONE 0.5 MG TABLET PO SCH ×2 (08:34→20:15)
[2020-03-16] MEDS: fluvoxaMINE MALEATE 50 MG TAB PO SCH ×2 (08:34→20:16)
[2020-03-16] MEDS: DOCUSATE SODIUM/SENNA 50/8.6MG TAB PO SCH ×2 (08:35→20:16)
[2020-03-16] MEDS: ACETAMINOPHEN 500 MG TAB PO SCH ×3 (08:35→20:16)
[2020-03-16] MEDS: DICLOFENAC SOD 1% GEL 100 GM TUBE EXT SCH ×2 (08:36→20:15)
[2020-03-16] MEDS: MICONAZOLE NITRATE POWDER 43 GM EXT PRN ×2 (08:36→20:15)
[2020-03-16] MEDS: clonazePAM 0.5 MG TAB PO PRN ×2 (08:38→20:15)
[2020-03-16] MEDS: oxyCODONE HCL IR 5 MG TAB (IMMEDIATE RELEASE) PO PRN ×2 (08:38→20:14)
--- NOTE | 2020-03-16 19:33 | Hospitalist Progress Note ---
Date of Service March 16, 2020 Assessment & Plan (1) Acute hyperglycemia: H/O DM II Presented with high blood sugar around 400 is due to receiving steroid injection in the right knee joint 1 day prior to admission HbA1C:8.2 Appreciate pharmacy input and recommendations Plan to resume Metformin upon discharge Monitor BGs Continue Insulin therapy while hospitalized (2) GEGE (acute kidney injury): Likely secondary to dehydration Received IV fluids Monitor renal function Resolved (3) Acute dehydration: As above (4) UTI (urinary tract infection): Urine Cx: Klebsiella pneumonia--pansensitive Completed IV ciprofloxacin course (5) Falls: PT and OT evaluation Waiting Rehab placement (6) Hypertension: Stable (7) Chronic anemia: (8) Diabetic peripheral neuropathy associated with type 2 diabetes mellitus: (9) Major depressive disorder, recurrent severe without psychotic features: Continue home medications Right Heel Pain Pain control Continue Waffle Boot HIV disease Continue antiviral medications DVT prophylaxis Lovenox SQ CODE STATUS Full Code Disposition Waiting for rehab placement Case management working on placement Admission and Anticipated Discharge Date Admission Date: February 22, 2020 Subjective Patient is seen and examined at bedside Clinically no significant change from yesterday Lying in bed comfortably Offers no complaints today Denies chest pain, dyspnea, dizziness, nausea, abdominal pain Waiting for rehab placement Physical Exam Physical Exam: Physical Exam: Vitals signs as noted above General Appearance:Obese, no apparent distress Head: normocephalic, Atraumatic Eyes: normal inspection, EOMI Neck: supple, Trachea midline Respiratory/Chest: Normal breath sounds, CTA Cardiovascular: S1, S2, + murmur Abdomen/GI:Soft, Non tender, Bowel sounds present Extremities/Musculoskelatal:normal inspection, no edema, Left AKA, Right toes amputated Neurologic/Psych:AAOX3, grossly no focal neurological deficits Skin: normal color, warm Results & Data Results & Data ([facility]) Vital Signs (Past 12 Hours) Vital Signs Temp Pulse Resp BP Pulse Ox 03/16/20 15:58 36.9 C 60 14 113/76 96 03/16/20 07:43 36.7 C 65 16 120/74 96 (1) UTI (urinary tract infection) Hematuria presence: with hematuria Urinary tract infection type: acute cystitis Qualified Code(s): N30.01 - Acute cystitis with hematuria
[2020-03-16] MEDS: DOLUTEGRAVIR SODIUM 50 MG TAB PO SCH (20:16)
[2020-03-16] MEDS: DESCOVY PO SCH (20:17)
[2020-03-17] MEDS: oxyCODONE HCL IR 5 MG TAB (IMMEDIATE RELEASE) PO PRN ×2 (08:10→19:31)
[2020-03-17] MEDS: ASPIRIN 81 MG ECTAB PO SCH (08:11)
[2020-03-17] MEDS: risperiDONE 0.5 MG TABLET PO SCH ×2 (08:11→21:15)
[2020-03-17] MEDS: clonazePAM 0.5 MG TAB PO PRN ×2 (08:11→19:30)
[2020-03-17] MEDS: DOCUSATE SODIUM/SENNA 50/8.6MG TAB PO SCH ×2 (08:11→21:14)
[2020-03-17] MEDS: fluvoxaMINE MALEATE 50 MG TAB PO SCH ×2 (08:12→21:17)
[2020-03-17] MEDS: busPIRone 7.5 MG TAB PO SCH ×2 (08:12→21:15)
[2020-03-17] MEDS: ACETAMINOPHEN 500 MG TAB PO SCH ×3 (08:12→21:15)
[2020-03-17] MEDS: ENOXAPARIN INJ 40 MG/0.4 ML SYR SQ SCH ×2 (08:12→21:17)
[2020-03-17] MEDS: DICLOFENAC SOD 1% GEL 100 GM TUBE EXT SCH ×2 (08:13→21:18)
[2020-03-17] MEDS: INSULIN GLARGINE SOLOSTAR 100 UNITS/ML 3 ML PEN SC SCH (08:43)
[2020-03-17] MEDS: INSULIN ASPART 100 UNITS/ML 3 ML PEN SC SCH ×4 (08:44→21:20)
--- NOTE | 2020-03-17 17:10 | XRay Report ---
XR knee RT 3V CLINICAL HISTORY: Right knee pain. COMPARISON STUDY: Right knee CT and radiograph 06/07/2018. FINDINGS: The bones are osteopenic. Severe tricompartmental osteoarthritis with multiple intra-articu lar loose bodies. This remains unchanged. Suspect a small right knee effusion, unchanged. Vascular ca lcifications are noted. Chronic lateral subluxation of the patella and relation to the femur. IMPRESSION: 1. No acute fracture or dislocation within the right knee. 2. Severe tricompartmental osteoarthritis and multiple intra-articular loose bodies again noted. 3. Chronic lateral subluxation of the patella. ACT 112: Negative or not required by law. Electronically signed by: Jose Li M.D. 03/17/2020 5:09 PM
--- NOTE | 2020-03-17 17:19 | Hospitalist Progress Note ---
Date of Service March 17, 2020 Assessment & Plan (1) Acute hyperglycemia: H/O DM II Presented with high blood sugar around 400 is due to receiving steroid injection in the right knee joint 1 day prior to admission HbA1C:8.2 Appreciate pharmacy input and recommendations Plan to resume Metformin upon discharge Monitor BGs Continue Insulin therapy while hospitalized Right Knee osteoarthritis Knee X ray: No acute fracture or dislocation within the right knee. Severe tricompartmental osteoarthritis and multiple intra-articular loose bodies again noted. Chronic lateral subluxation of the patella. Pain control Patient requests orthopedic evaluation while hospitalized Orthopedics consulted PT/OT (2) GEGE (acute kidney injury): Likely secondary to dehydration Received IV fluids Monitor renal function Resolved (3) Acute dehydration: As above (4) UTI (urinary tract infection): Urine Cx: Klebsiella pneumonia--pansensitive Completed IV ciprofloxacin course (5) Falls: PT and OT evaluation Waiting Rehab placement (6) Hypertension: Stable (7) Chronic anemia: (8) Diabetic peripheral neuropathy associated with type 2 diabetes mellitus: (9) Major depressive disorder, recurrent severe without psychotic features: Continue home medications Right Heel Pain Pain control Continue Waffle Boot HIV disease Continue antiviral medications DVT prophylaxis Lovenox SQ CODE STATUS Full Code Disposition Waiting for rehab placement Case management working on placement Admission and Anticipated Discharge Date Admission Date: February 22, 2020 Subjective Patient is seen and examined at bedside Complains of right knee pain Knee x-ray showed no acute fracture or dislocation. Offers no other complaints Requests orthopedics evaluation while hospitalized Denies chest pain, dyspnea, dizziness, nausea, abdominal pain Review of Systems Review of Systems: All systems reviewed and are unremarkable except as noted below Physical Exam Physical Exam: Physical Exam: Vitals signs as noted above General Appearance:Obese, no apparent distress Head: normocephalic, Atraumatic Eyes: normal inspection, EOMI Neck: supple, Trachea midline Respiratory/Chest: Normal breath sounds, CTA Cardiovascular: S1, S2, + murmur Abdomen/GI:Soft, Non tender, Bowel sounds present Extremities/Musculoskelatal:normal inspection, no edema, Left AKA, Right toes amputated Neurologic/Psych:AAOX3, grossly no focal neurological deficits Skin: normal color, warm Results & Data Results & Data ([facility]) Vital Signs (Past 12 Hours) Vital Signs Temp Pulse Resp BP Pulse Ox 03/17/20 16:43 36.4 C L 65 17 118/74 96 03/17/20 06:56 36.6 C 67 19 127/77 97 (1) UTI (urinary tract infection) Hematuria presence: with hematuria Urinary tract infection type: acute cystitis Qualified Code(s): N30.01 - Acute cystitis with hematuria
[2020-03-17] MEDS: DOLUTEGRAVIR SODIUM 50 MG TAB PO SCH (21:15)
[2020-03-17] MEDS: MICONAZOLE NITRATE POWDER 43 GM EXT PRN (21:16)
[2020-03-17] MEDS: DESCOVY PO SCH (21:17)
[2020-03-18] MEDS: MICONAZOLE NITRATE POWDER 43 GM EXT PRN (08:57)
[2020-03-18] MEDS: fluvoxaMINE MALEATE 50 MG TAB PO SCH ×2 (08:58→20:37)
[2020-03-18] MEDS: DOCUSATE SODIUM/SENNA 50/8.6MG TAB PO SCH ×2 (08:58→20:37)
[2020-03-18] MEDS: risperiDONE 0.5 MG TABLET PO SCH ×2 (08:58→20:37)
[2020-03-18] MEDS: busPIRone 7.5 MG TAB PO SCH ×2 (08:58→20:37)
[2020-03-18] MEDS: ASPIRIN 81 MG ECTAB PO SCH (08:58)
[2020-03-18] MEDS: ENOXAPARIN INJ 40 MG/0.4 ML SYR SQ SCH ×2 (08:59→20:37)
[2020-03-18] MEDS: ACETAMINOPHEN 500 MG TAB PO SCH ×3 (08:59→20:37)
[2020-03-18] MEDS: DICLOFENAC SOD 1% GEL 100 GM TUBE EXT SCH ×2 (09:00→20:37)
[2020-03-18] MEDS: INSULIN GLARGINE SOLOSTAR 100 UNITS/ML 3 ML PEN SC SCH (09:01)
[2020-03-18] MEDS: INSULIN ASPART 100 UNITS/ML 3 ML PEN SC SCH ×4 (09:02→21:52)
[2020-03-18] MEDS: clonazePAM 0.5 MG TAB PO PRN ×2 (09:06→20:40)
[2020-03-18] MEDS: oxyCODONE HCL IR 5 MG TAB (IMMEDIATE RELEASE) PO PRN ×2 (09:06→20:40)
--- NOTE | 2020-03-18 10:03 | Orthopedic Consultation ---
Date of Consultation March 18, 2020 Assessment & Plan (1) Degenerative joint disease of knee, right: The patient is a 59-year-old female who is well-known to our practice who presents with chronic atraumatic right knee pain, severe tricompartmental DJD. Patient received previous corticosteroid injection on 02/22/2020 as well as hyaluronic acid injections with minimal relief. Had long in-depth conversation with the patient in regards to her diagnosis unfortunately due to multiple comor bidities including body habitus, on chronic immune suppression medications, previous infections which resulted and left lower extremity amputation, uncontrolled diabetes the patient is extremely high risk for any knee replacement surgery and the benefits would not exceed the risks at this time. Previously underwent left total knee arthroplasty subsequent infection which resulted in [id number] amputation of her left lower extremity. At her outpatient appointment the patient received a referral to pain management for evaluation for RFA, unfortunately patient has not been able to set this up as of yet. She expressed interest in seeing [facility] pain management, this could be set up as an outpatient. Would continue with conservative treatment at this time including bracing, anti-inflammatories as needed, weight-bear as tolerated right lower extremity, PT/OT, order placed for Lidoderm patch, pain management follow-up for consideration for RFA. We also discussed follow-up with tertiary care center due to the complexity of her case for surgical consideration if she can be medically optimized, most recent hemoglobin A1c 8.2. Patient is to follow-up with her primary surgeon Dr. Stokes as needed. Thank you for the consultation. History of Present Illness Reason for Consultation: Right knee pain/DJD Attending Physician: Benitez Randall MD History of Present Illness The patient is a 59-year-old female with significant past medical history noted below, known to [facility], follows with Dr. Stokes. Patient was seen in office as a second opinion on 02/22/2020 and provided a corticosteroid injection. Presented to the emergency department with elevated blood sugars the same day. Was admitted for further inpatient evaluation and treatment. Patient continues to have unchanged chronic pain to the right knee difficulty with ambulation. Denies any new trauma, denies numbness and tingling to right lower extremity. Admits to limited painful range of motion. Allergies Allergy/AdvReac Type Severity Reaction Status Date / Time clams Allergy Severe HIVES Unverified 02/22/20 15:06 ceftriaxone Allergy Intermediate HIVES, Rash Verified 02/22/20 15:06 Penicillins Allergy Intermediate body gets Verified 02/22/20 15:06 red vancomycin AdvReac Mild RED MAN Verified 02/22/20 15:06 SYNDROME Home Medications Medication Instructions Recorded Confirmed Type risperidone 0.5 mg PO BID 06/07/18 02/22/20 History clonazepam 0.5 mg tablet 0.5 mg PO BID PRN 11/11/18 02/22/20 History nitroglycerin 0.4 mg sublingual 0.4 mg SL .COMPLEX tab 11/11/18 02/22/20 History tablet aspirin [Aspir-81] 81 mg PO DAILY 02/22/20 02/22/20 History buspirone 7.5 mg PO BID 02/22/20 02/22/20 History dolutegravir [Tivicay] 50 mg PO HS 02/22/20 02/22/20 History emtricitabine-tenofovir alafen 1 tab PO HS 02/22/20 02/22/20 History [Descovy] fluvoxamine 100 mg PO BID 02/22/20 02/22/20 History hydroxyzine HCl 50 mg PO TID 02/22/20 02/22/20 History metformin 500 mg PO BID 02/22/20 02/22/20 History Patient History Medical History (Updated 03/18/20 @ 09:56 by Melo Brandon DO) Acute venous thrombosis Chronic anemia TINO (generalized anxiety disorder) Surgical History History of carpal tunnel release of both wrists Social History Smoking Status: Never smoker Hx Alcohol Use: No Hx Substance Use: No Preferred Language: Lao Communication Ability: Effective [employer] Grade [employer] Required: No Beliefs That Will Affect Care: None Current Living Situation: Alone Current Living Situation Comment: lives at [facility] Other Information That Helps Us Care for You: No Feels Safe at Home: Yes and No Assistive Devices: Prosthesis Review of Systems Review of Systems: All systems reviewed & are unremarkable except as noted in HPI & below Constitutional: as per Subjective / HPI Physical Exam Physical Exam: Right lower extremity is neurovascular and sensory intact grossly, limited painful active and passive range of motion 30 to 90 degrees of range of motion with crepitus. No effusion or erythema. Skin is clean dry and intact. Compartment soft nontender. +2 dorsalis pedis pulse. Constitutional: WD/WN, vitals as above Results & Data ([facility]) Vital Signs (Past 12 Hours) Vital Signs Temp Pulse Resp BP BP Pulse Ox 03/18/20 07:50 36.7 C 68 18 122/74 96 03/17/20 23:57 36.6 C 65 16 116/72 98 Diagnostic Findings XR knee RT 3V CLINICAL HISTORY: Right knee pain. COMPARISON STUDY: Right knee CT and radiograph 06/07/2018. FINDINGS: The bones are osteopenic. Severe tricompartmental osteoarthritis with multiple intra-articular loose bodies. This remains unchanged. Suspect a small right knee effusion, unchanged. Vascular calcifications are noted. Chronic lateral subluxation of the patella and relation to the femur. IMPRESSION: 1. No acute fracture or dislocation within the right knee. 2. Severe tricompartmental osteoarthritis and multiple intra-articular loose bodies again noted. 3. Chronic lateral subluxation of the patella.
--- NOTE | 2020-03-18 18:07 | Hospitalist Progress Note ---
Date of Service March 18, 2020 Assessment & Plan (1) Acute hyperglycemia: H/O DM II Presented with high blood sugar around 400 is due to receiving steroid injection in the right knee joint 1 day prior to admission HbA1C:8.2 Appreciate pharmacy input and recommendations Plan to resume Metformin upon discharge Monitor BGs Continue Insulin therapy while hospitalized Right Knee osteoarthritis Knee X ray: No acute fracture or dislocation within the right knee. Severe tricompartmental osteoarthritis and multiple intra-articular loose bodies again noted. Chronic lateral subluxation of the patella. Very high risk for given comorbidities. Pain control Appreciate orthopedics input Continue PT/OT Needs rehab placement May need follow-up with pain clinic as outpatient (2) GEGE (acute kidney injury): Likely secondary to dehydration Received IV fluids Monitor renal function Resolved (3) Acute dehydration: As above (4) UTI (urinary tract infection): Urine Cx: Klebsiella pneumonia--pansensitive Completed IV ciprofloxacin course (5) Falls: PT and OT evaluation Waiting Rehab placement (6) Hypertension: Stable (7) Chronic anemia: (8) Diabetic peripheral neuropathy associated with type 2 diabetes mellitus: (9) Major depressive disorder, recurrent severe without psychotic features: Continue home medications Right Heel Pain Pain control Continue Waffle Boot HIV disease Continue antiviral medications DVT prophylaxis Lovenox SQ CODE STATUS Full Code Disposition Waiting for rehab placement Case management working on placement Admission and Anticipated Discharge Date Admission Date: February 22, 2020 Subjective Patient is seen and examined at bedside States feeling better today No new complaints Denies chest pain, dyspnea, dizziness, nausea, abdominal pain Waiting for placement Review of Systems Review of Systems: All systems reviewed & are unremarkable except as noted in HPI & below Physical Exam Physical Exam: Physical Exam: Vitals signs as noted above General Appearance:Obese, no apparent distress Head: normocephalic, Atraumatic Eyes: normal inspection, EOMI Neck: supple, Trachea midline Respiratory/Chest: Normal breath sounds, CTA Cardiovascular: S1, S2, + murmur Abdomen/GI:Soft, Non tender, Bowel sounds present Extremities/Musculoskelatal:normal inspection, no edema, Left AKA, Right toes amputated Neurologic/Psych:AAOX3, grossly no focal neurological deficits Skin: normal color, warm Results & Data Results & Data ([facility]) Vital Signs (Past 12 Hours) Vital Signs Temp Pulse Resp BP Pulse Ox 03/18/20 15:32 36.6 C 61 18 134/79 98 03/18/20 07:50 36.7 C 68 18 122/74 96 (1) UTI (urinary tract infection) Hematuria presence: with hematuria Urinary tract infection type: acute cystitis Qualified Code(s): N30.01 - Acute cystitis with hematuria
[2020-03-18] MEDS: DOLUTEGRAVIR SODIUM 50 MG TAB PO SCH (20:34)
[2020-03-18] MEDS: DESCOVY PO SCH (20:36)
[2020-03-19] MEDS: busPIRone 7.5 MG TAB PO SCH ×2 (07:39→20:27)
[2020-03-19] MEDS: risperiDONE 0.5 MG TABLET PO SCH ×2 (07:39→20:27)
[2020-03-19] MEDS: fluvoxaMINE MALEATE 50 MG TAB PO SCH ×2 (07:39→20:27)
[2020-03-19] MEDS: DICLOFENAC SOD 1% GEL 100 GM TUBE EXT SCH ×2 (07:40→20:31)
[2020-03-19] MEDS: DOCUSATE SODIUM/SENNA 50/8.6MG TAB PO SCH ×2 (07:40→20:26)
[2020-03-19] MEDS: ACETAMINOPHEN 500 MG TAB PO SCH ×3 (07:40→20:29)
[2020-03-19] MEDS: ASPIRIN 81 MG ECTAB PO SCH (07:40)
[2020-03-19] MEDS: ENOXAPARIN INJ 40 MG/0.4 ML SYR SQ SCH ×2 (07:41→20:27)
[2020-03-19] MEDS: MICONAZOLE NITRATE POWDER 43 GM EXT PRN ×2 (07:42→20:34)
[2020-03-19] MEDS: clonazePAM 0.5 MG TAB PO PRN (07:45)
[2020-03-19] MEDS: oxyCODONE HCL IR 5 MG TAB (IMMEDIATE RELEASE) PO PRN ×2 (07:45→20:33)
[2020-03-19] MEDS: INSULIN GLARGINE SOLOSTAR 100 UNITS/ML 3 ML PEN SC SCH (08:56)
[2020-03-19] MEDS: INSULIN ASPART 100 UNITS/ML 3 ML PEN SC SCH ×4 (08:56→20:43)
[2020-03-19] MEDS ORDERED: clonazePAM 0.5 MG TAB PO ONE (16:14)
[2020-03-19] MEDS: DOLUTEGRAVIR SODIUM 50 MG TAB PO SCH (20:27)
[2020-03-19] MEDS: DESCOVY PO SCH (20:28)
--- NOTE | 2020-03-19 20:58 | Hospitalist Progress Note ---
Date of Service March 19, 2020 Assessment & Plan (1) Acute hyperglycemia: H/O DM II Presented with high blood sugar around 400 is due to receiving steroid injection in the right knee joint 1 day prior to admission HbA1C:8.2 Appreciate pharmacy input and recommendations Plan to resume Metformin upon discharge Monitor BGs Continue Insulin therapy while hospitalized Right Knee osteoarthritis Knee X ray: No acute fracture or dislocation within the right knee. Severe tricompartmental osteoarthritis and multiple intra-articular loose bodies again noted. Chronic lateral subluxation of the patella. Very high risk for given comorbidities. Pain control Appreciate orthopedics input Continue PT/OT Needs rehab placement May need follow-up with pain clinic as outpatient Continue current medications (2) GEGE (acute kidney injury): Likely secondary to dehydration Received IV fluids Monitor renal function Resolved (3) Acute dehydration: As above (4) UTI (urinary tract infection): Urine Cx: Klebsiella pneumonia--pansensitive Completed IV ciprofloxacin course (5) Falls: PT and OT evaluation Waiting Rehab placement (6) Hypertension: Stable (7) Chronic anemia: (8) Diabetic peripheral neuropathy associated with type 2 diabetes mellitus: (9) Major depressive disorder, recurrent severe without psychotic features: Continue home medications Right Heel Pain Pain control Continue Waffle Boot HIV disease Continue antiviral medications DVT prophylaxis Lovenox SQ CODE STATUS Full Code Disposition Case management working on placement Waiting for rehab placement Admission and Anticipated Discharge Date Admission Date: February 22, 2020 Subjective Patient is seen and examined at bedside No new complaints Waiting for placement Denies chest pain, dyspnea, dizziness, nausea, abdominal pain Reported feeling anxious to RN earlier today Review of Systems Review of Systems: All systems reviewed & are unremarkable except as noted in HPI & below Physical Exam Physical Exam: Physical Exam: Vitals signs as noted above General Appearance:Obese, no apparent distress Head: normocephalic, Atraumatic Eyes: normal inspection, EOMI Neck: supple, Trachea midline Respiratory/Chest: Normal breath sounds, CTA Cardiovascular: S1, S2, + murmur Abdomen/GI:Soft, Non tender, Bowel sounds present Extremities/Musculoskelatal:normal inspection, no edema, Left AKA, Right toes amputated Neurologic/Psych:AAOX3, grossly no focal neurological deficits Skin: normal color, warm Results & Data Results & Data ([facility]) Vital Signs (Past 12 Hours) Vital Signs Temp Pulse Resp BP Pulse Ox 03/19/20 15:06 37.1 C 88 19 155/87 H 97 (1) UTI (urinary tract infection) Hematuria presence: with hematuria Urinary tract infection type: acute cystitis Qualified Code(s): N30.01 - Acute cystitis with hematuria
[2020-03-20] MEDS: ACETAMINOPHEN 325 MG TAB PO PRN (02:00)
[2020-03-20 07:46] LABS: BUN Creatinine Ratio 16.5 (10-20); Calcium 8.7 mg/dl (8.5-10.1); Creatinine Clr Calc Pharmacy 43.5 ml/min; Est GFR (African American) 44.4; Est GFR (Non-African American) 38.3
[2020-03-20] MEDS: fluvoxaMINE MALEATE 50 MG TAB PO SCH ×2 (08:29→21:02)
[2020-03-20] MEDS: risperiDONE 0.5 MG TABLET PO SCH ×2 (08:29→21:03)
[2020-03-20] MEDS: ASPIRIN 81 MG ECTAB PO SCH (08:29)
[2020-03-20] MEDS: busPIRone 7.5 MG TAB PO SCH ×2 (08:29→21:02)
[2020-03-20] MEDS: DOCUSATE SODIUM/SENNA 50/8.6MG TAB PO SCH ×2 (08:29→21:01)
[2020-03-20] MEDS: ENOXAPARIN INJ 40 MG/0.4 ML SYR SQ SCH ×2 (08:30→21:03)
[2020-03-20] MEDS: DICLOFENAC SOD 1% GEL 100 GM TUBE EXT SCH ×2 (08:31→21:01)
[2020-03-20] MEDS: ACETAMINOPHEN 500 MG TAB PO SCH ×3 (08:31→21:02)
[2020-03-20] MEDS: oxyCODONE HCL IR 5 MG TAB (IMMEDIATE RELEASE) PO PRN ×2 (08:37→21:03)
[2020-03-20] MEDS: LIDOCAINE 5% 1 PATCH TD SCH (08:38)
[2020-03-20] MEDS: clonazePAM 0.5 MG TAB PO PRN ×2 (08:38→21:03)
[2020-03-20] MEDS: INSULIN GLARGINE SOLOSTAR 100 UNITS/ML 3 ML PEN SC SCH (08:41)
[2020-03-20] MEDS: INSULIN ASPART 100 UNITS/ML 3 ML PEN SC SCH ×4 (08:42→21:04)
--- NOTE | 2020-03-20 15:01 | Hospitalist Progress Note ---
Date of Service March 20, 2020 Assessment & Plan (1) Acute hyperglycemia: H/O DM II Presented with high blood sugar around 400 is due to receiving steroid injection in the right knee joint 1 day prior to admission HbA1C:8.2 Appreciate pharmacy input and recommendations Plan to resume Metformin upon discharge Monitor BGs Continue Insulin therapy while hospitalized Right Knee osteoarthritis Knee X ray: No acute fracture or dislocation within the right knee. Severe tricompartmental osteoarthritis and multiple intra-articular loose bodies again noted. Chronic lateral subluxation of the patella. Very high risk for given comorbidities. Pain control Appreciate orthopedics input Continue PT/OT Awaiting rehab placement May need follow-up with pain clinic as outpatient Continue current medications (2) GGEE (acute kidney injury): Likely secondary to dehydration Received IV fluids Monitor renal function Resolved (3) Acute dehydration: As above (4) UTI (urinary tract infection): Urine Cx: Klebsiella pneumonia--pansensitive Completed IV ciprofloxacin course (5) Falls: PT and OT evaluation Waiting Rehab placement labs checked ROS-No Headache, No Visual Changes, No Nausea, No Vomiting, No Fever, No Chills, No Neck Pain or Stiffness, No Chest Pain, No Palpitations, No SOB, No PEDRAZA, No Cough, No Sputum, No Wheezing, No Abdominal Pain, No Diarrhea, No Hematemesis, No Hemoptysis, No Unexpected Weight Loss, No Flank pain, No Melena, No Hematochezia, No Frequency, No Urgency, No Burning, No Hematuria, No Rashes, No Diaphoresis. Appetite is Normal, c/o anxiety and psych med doses not being correct Physical Exam Gen-AAO x 3, NAD, Afebrile, obese Head-NCAT, EOMI, PERRLA, Anicteric Sclera, No Posterior Pharyngeal Erythema Neck-Supple, No JVD, No Thyromegaly, No Masses, No LAD, No Bruits Lungs-Clear to Auscultation Bilaterally, No Rales, No Rhonchi, No Wheezing, No Crepitus Chest-No S4, +S1, +S2, No S3, + Murmur, No Rubs, No Gallops, No Ectopy Abdomen-Soft, Bowel Sounds Present, Non Tender, Non Distended, No Hepatomegaly, No Splenomegaly, No Palpable Masses, No Rebound, No Rigidity, No Guarding Musculoskeletal-Full Range of Motion Bilaterally, No CVAT Extremities-No Cyanosis, No Clubbing, No Edema, L AKA Nuero-Cranial Nerves II-XII grossly intact, Motor WNL, DTRs WNL, Strength WNL, Non Focal Psych-Normal Mood (6) Hypertension: Stable (7) Chronic anemia: (8) Diabetic peripheral neuropathy associated with type 2 diabetes mellitus: (9) Major depressive disorder, recurrent severe without psychotic features: Continue home medications Right Heel Pain Pain control Continue Waffle Boot HIV disease Continue antiviral medications DVT prophylaxis Lovenox SQ CODE STATUS Full Code Disposition Case management working on placement Waiting for rehab placement Admission and Anticipated Discharge Date Admission Date: February 22, 2020 Results & Data Results & Data ([facility]) Vital Signs (Past 12 Hours) Vital Signs Temp Pulse Resp BP Pulse Ox 03/20/20 07:19 37.1 C 87 16 125/69 100 03/20/20 03:55 37.0 C (1) UTI (urinary tract infection) Hematuria presence: with hematuria Urinary tract infection type: acute cystitis Qualified Code(s): N30.01 - Acute cystitis with hematuria
[2020-03-20] MEDS: DOLUTEGRAVIR SODIUM 50 MG TAB PO SCH (21:02)
[2020-03-20] MEDS: DESCOVY PO SCH (21:03)
[2020-03-20] MEDS: MICONAZOLE NITRATE POWDER 43 GM EXT PRN (21:07)
[2020-03-21 06:25] LABS: Hematocrit (blood only) 37.1 % (37-47); Hemoglobin 11.7 g/dL (12.0-16.0); Mean Corpuscular Hemoglobin 30.2 pg (25-34); Mean Corpuscular Hgb Conc 31.5 g/dL (32-36); Mean Corpuscular Volume 95.6 fL (80-100); Mean Platelet Volume 9.6 fL (7.4-10.4); Platelet Count 250 K/uL (130-400); RDW Coefficient of Variation 11.9 % (11.5-14.5); RDW Standard Deviation 41.8 fL (36.4-46.3); Red Blood Count 3.88 M/uL (4.2-5.4); White Blood Count 5.83 K/uL (4.8-10.8)
[2020-03-21 06:59] LABS: BUN Creatinine Ratio 16.6 (10-20); Calcium 8.8 mg/dl (8.5-10.1); Creatinine Clr Calc Pharmacy 47.3 ml/min; Est GFR (African American) 49.2; Est GFR (Non-African American) 42.4; Potassium 3.8 mmol/L (3.5-5.1)
[2020-03-21] MEDS: INSULIN ASPART 100 UNITS/ML 3 ML PEN SC SCH ×4 (08:56→23:51)
[2020-03-21] MEDS: DOCUSATE SODIUM/SENNA 50/8.6MG TAB PO SCH ×2 (08:59→20:32)
[2020-03-21] MEDS: ACETAMINOPHEN 500 MG TAB PO SCH ×3 (09:00→20:32)
[2020-03-21] MEDS: fluvoxaMINE MALEATE 50 MG TAB PO SCH ×2 (09:01→20:32)
[2020-03-21] MEDS: busPIRone 7.5 MG TAB PO SCH ×2 (09:01→20:32)
[2020-03-21] MEDS: risperiDONE 0.5 MG TABLET PO SCH ×2 (09:01→20:32)
[2020-03-21] MEDS: ASPIRIN 81 MG ECTAB PO SCH (09:02)
[2020-03-21] MEDS: LIDOCAINE 5% 1 PATCH TD SCH (09:02)
[2020-03-21] MEDS: ENOXAPARIN INJ 40 MG/0.4 ML SYR SQ SCH ×2 (09:03→20:31)
[2020-03-21] MEDS: DICLOFENAC SOD 1% GEL 100 GM TUBE EXT SCH ×2 (09:04→20:32)
[2020-03-21] MEDS: INSULIN GLARGINE SOLOSTAR 100 UNITS/ML 3 ML PEN SC SCH (09:06)
[2020-03-21] MEDS: clonazePAM 0.5 MG TAB PO PRN ×2 (09:14→20:31)
[2020-03-21] MEDS: oxyCODONE HCL IR 5 MG TAB (IMMEDIATE RELEASE) PO PRN ×2 (09:14→20:30)
--- NOTE | 2020-03-21 10:07 | Hospitalist Progress Note ---
Date of Service March 21, 2020 Assessment & Plan (1) Acute hyperglycemia: H/O DM II Presented with high blood sugar around 400 is due to receiving steroid injection in the right knee joint 1 day prior to admission HbA1C:8.2 Appreciate pharmacy input and recommendations Plan to resume Metformin upon discharge Monitor BGs Continue Insulin therapy while hospitalized Right Knee osteoarthritis Knee X ray: No acute fracture or dislocation within the right knee. Severe tricompartmental osteoarthritis and multiple intra-articular loose bodies again noted. Chronic lateral subluxation of the patella. Very high risk for given comorbidities. Pain control Appreciate orthopedics input Continue PT/OT Awaiting rehab placement May need follow-up with pain clinic as outpatient Continue current medications (2) GEGE (acute kidney injury): Likely secondary to dehydration Received IV fluids Monitor renal function Resolved (3) Acute dehydration: As above (4) UTI (urinary tract infection): Urine Cx: Klebsiella pneumonia--pansensitive Completed IV ciprofloxacin course (5) Falls: PT and OT Waiting Rehab placement labs checked Cr at baseline ROS-No Headache, No Visual Changes, No Nausea, No Vomiting, No Fever, No Chills, No Neck Pain or Stiffness, No Chest Pain, No Palpitations, No SOB, No PEDRAZA, No Cough, No Sputum, No Wheezing, No Abdominal Pain, No Diarrhea, No Hematemesis, No Hemoptysis, No Unexpected Weight Loss, No Flank pain, No Melena, No Hematochezia, No Frequency, No Urgency, No Burning, No Hematuria, No Rashes, No Diaphoresis. Appetite is Normal, c/o anxiety and psych med doses not being correct Physical Exam Gen-AAO x 3, NAD, Afebrile, obese Head-NCAT, EOMI, PERRLA, Anicteric Sclera, No Posterior Pharyngeal Erythema Neck-Supple, No JVD, No Thyromegaly, No Masses, No LAD, No Bruits Lungs-Clear to Auscultation Bilaterally, No Rales, No Rhonchi, No Wheezing, No Crepitus Chest-No S4, +S1, +S2, No S3, + Murmur, No Rubs, No Gallops, No Ectopy Abdomen-Soft, Bowel Sounds Present, Non Tender, Non Distended, No Hepatomegaly, No Splenomegaly, No Palpable Masses, No Rebound, No Rigidity, No Guarding Musculoskeletal-Full Range of Motion Bilaterally, No CVAT Extremities-No Cyanosis, No Clubbing, No Edema, L AKA Nuero-Cranial Nerves II-XII grossly intact, Motor WNL, DTRs WNL, Strength WNL, Non Focal Psych-Normal Mood (6) Hypertension: Stable (7) Chronic anemia: (8) Diabetic peripheral neuropathy associated with type 2 diabetes mellitus: (9) Major depressive disorder, recurrent severe without psychotic features: Continue home medications Right Heel Pain Pain control Continue Waff[employer] HIV disease Continue antiviral medications DVT prophylaxis Lovenox SQ CODE STATUS Full Code Disposition Case management working on placement Waiting for rehab placement Admission and Anticipated Discharge Date Admission Date: February 22, 2020 Subjective Patient is seen and examined at bedside No new complaints Waiting for placement Denies chest pain, dyspnea, dizziness, nausea, abdominal pain Reported feeling anxious to RN earlier today Results & Data Results & Data ([facility]) Vital Signs (Past 12 Hours) Vital Signs Temp Pulse Resp BP Pulse Ox 03/21/20 08:10 36.7 C 70 20 97 03/20/20 23:26 37.4 C 66 14 105/62 93 (1) UTI (urinary tract infection) Hematuria presence: with hematuria Urinary tract infection type: acute cystitis Qualified Code(s): N30.01 - Acute cystitis with hematuria
[2020-03-21] MEDS: hydrOXYzine HCl 25 MG TAB PO PRN (13:59)
[2020-03-21] MEDS: MICONAZOLE NITRATE POWDER 43 GM EXT PRN (20:31)
[2020-03-21] MEDS: DOLUTEGRAVIR SODIUM 50 MG TAB PO SCH (20:34)
[2020-03-21] MEDS: DESCOVY PO SCH (20:34)
[2020-03-22] MEDS: INSULIN ASPART 100 UNITS/ML 3 ML PEN SC SCH ×4 (09:09→21:08)
[2020-03-22] MEDS: INSULIN GLARGINE SOLOSTAR 100 UNITS/ML 3 ML PEN SC SCH (09:11)
[2020-03-22] MEDS: oxyCODONE HCL IR 5 MG TAB (IMMEDIATE RELEASE) PO PRN ×2 (09:12→20:00)
[2020-03-22] MEDS: clonazePAM 0.5 MG TAB PO PRN ×2 (09:13→20:00)
[2020-03-22] MEDS: busPIRone 7.5 MG TAB PO SCH ×2 (09:13→20:04)
[2020-03-22] MEDS: risperiDONE 0.5 MG TABLET PO SCH ×2 (09:14→20:03)
[2020-03-22] MEDS: fluvoxaMINE MALEATE 50 MG TAB PO SCH ×2 (09:14→20:03)
[2020-03-22] MEDS: ENOXAPARIN INJ 40 MG/0.4 ML SYR SQ SCH ×2 (09:15→20:02)
[2020-03-22] MEDS: ASPIRIN 81 MG ECTAB PO SCH (09:15)
[2020-03-22] MEDS: DOCUSATE SODIUM/SENNA 50/8.6MG TAB PO SCH ×2 (09:15→20:05)
[2020-03-22] MEDS: ACETAMINOPHEN 500 MG TAB PO SCH ×3 (09:16→20:04)
[2020-03-22] MEDS: LIDOCAINE 5% 1 PATCH TD SCH (09:16)
[2020-03-22] MEDS: DICLOFENAC SOD 1% GEL 100 GM TUBE EXT SCH ×2 (09:17→20:05)
--- NOTE | 2020-03-22 11:58 | Hospitalist Progress Note ---
Date of Service March 22, 2020 Assessment & Plan (1) Acute hyperglycemia: H/O DM II Presented with high blood sugar around 400 is due to receiving steroid injection in the right knee joint 1 day prior to admission HbA1C:8.2 Appreciate pharmacy input and recommendations Plan to resume Metformin upon discharge Monitor BGs Continue Insulin therapy while hospitalized Right Knee osteoarthritis Knee X ray: No acute fracture or dislocation within the right knee. Severe tricompartmental osteoarthritis and multiple intra-articular loose bodies again noted. Chronic lateral subluxation of the patella. Very high risk for given comorbidities. Pain control Appreciate orthopedics input Continue PT/OT Awaiting rehab placement May need follow-up with pain clinic as outpatient Continue current medications (2) GEGE (acute kidney injury): Likely secondary to dehydration Received IV fluids Monitor renal function Resolved (3) Acute dehydration: As above (4) UTI (urinary tract infection): Urine Cx: Klebsiella pneumonia--pansensitive Completed IV ciprofloxacin course (5) Falls: PT and OT Waiting Rehab placement labs checked Cr at baseline ROS-No Headache, No Visual Changes, No Nausea, No Vomiting, No Fever, No Chills, No Neck Pain or Stiffness, No Chest Pain, No Palpitations, No SOB, No PEDRAZA, No Cough, No Sputum, No Wheezing, No Abdominal Pain, No Diarrhea, No Hematemesis, No Hemoptysis, No Unexpected Weight Loss, No Flank pain, No Melena, No Hematochezia, No Frequency, No Urgency, No Burning, No Hematuria, No Rashes, No Diaphoresis. Appetite is Normal, c/o anxiety and psych med doses not being correct Physical Exam Gen-AAO x 3, NAD, Afebrile, obese Head-NCAT, EOMI, PERRLA, Anicteric Sclera, No Posterior Pharyngeal Erythema Neck-Supple, No JVD, No Thyromegaly, No Masses, No LAD, No Bruits Lungs-Clear to Auscultation Bilaterally, No Rales, No Rhonchi, No Wheezing, No Crepitus Chest-No S4, +S1, +S2, No S3, + Murmur, No Rubs, No Gallops, No Ectopy Abdomen-Soft, Bowel Sounds Present, Non Tender, Non Distended, No Hepatomegaly, No Splenomegaly, No Palpable Masses, No Rebound, No Rigidity, No Guarding Musculoskeletal-Full Range of Motion Bilaterally, No CVAT Extremities-No Cyanosis, No Clubbing, No Edema, L AKA Nuero-Cranial Nerves II-XII grossly intact, Motor WNL, DTRs WNL, Strength WNL, Non Focal Psych-Normal Mood (6) Hypertension: Stable (7) Chronic anemia: (8) Diabetic peripheral neuropathy associated with type 2 diabetes mellitus: (9) Major depressive disorder, recurrent severe without psychotic features: Continue home medications Right Heel Pain Pain control Continue W[employer] HIV disease Continue antiviral medications DVT prophylaxis Lovenox SQ CODE STATUS Full Code Disposition Case management working on placement Waiting for rehab placement Admission and Anticipated Discharge Date Admission Date: February 22, 2020 Results & Data Results & Data ([facility]) Vital Signs (Past 12 Hours) Vital Signs Temp Pulse Resp BP Pulse Ox 03/22/20 07:19 36.5 C 63 16 112/72 96 (1) UTI (urinary tract infection) Hematuria presence: with hematuria Urinary tract infection type: acute cystitis Qualified Code(s): N30.01 - Acute cystitis with hematuria
[2020-03-22] MEDS: hydrOXYzine HCl 25 MG TAB PO PRN (13:10)
[2020-03-22] MEDS: DOLUTEGRAVIR SODIUM 50 MG TAB PO SCH (20:02)
[2020-03-22] MEDS: DESCOVY PO SCH (20:06)
[2020-03-23] MEDS: clonazePAM 0.5 MG TAB PO PRN (07:47)
[2020-03-23] MEDS: oxyCODONE HCL IR 5 MG TAB (IMMEDIATE RELEASE) PO PRN ×2 (07:47→20:55)
[2020-03-23] MEDS: risperiDONE 0.5 MG TABLET PO SCH ×2 (07:48→23:21)
[2020-03-23] MEDS: busPIRone 7.5 MG TAB PO SCH ×2 (07:48→23:22)
[2020-03-23] MEDS: DOCUSATE SODIUM/SENNA 50/8.6MG TAB PO SCH ×2 (07:48→20:55)
[2020-03-23] MEDS: ENOXAPARIN INJ 40 MG/0.4 ML SYR SQ SCH ×2 (07:49→23:25)
[2020-03-23] MEDS: DICLOFENAC SOD 1% GEL 100 GM TUBE EXT SCH ×2 (07:49→21:01)
[2020-03-23] MEDS: ACETAMINOPHEN 500 MG TAB PO SCH ×3 (07:49→20:59)
[2020-03-23] MEDS: ASPIRIN 81 MG ECTAB PO SCH (07:49)
[2020-03-23] MEDS: LIDOCAINE 5% 1 PATCH TD SCH (07:50)
[2020-03-23] MEDS: fluvoxaMINE MALEATE 50 MG TAB PO SCH ×2 (07:50→23:24)
[2020-03-23] MEDS: INSULIN ASPART 100 UNITS/ML 3 ML PEN SC SCH ×3 (08:43→17:51)
[2020-03-23] MEDS: INSULIN GLARGINE SOLOSTAR 100 UNITS/ML 3 ML PEN SC SCH (08:44)
--- NOTE | 2020-03-23 10:17 | Hospitalist Progress Note ---
Date of Service March 23, 2020 Assessment & Plan (1) Acute hyperglycemia: H/O DM II Presented with high blood sugar around 400 is due to receiving steroid injection in the right knee joint 1 day prior to admission HbA1C:8.2 Appreciate pharmacy input and recommendations Plan to resume Metformin upon discharge Monitor BGs Continue Insulin therapy while hospitalized Right Knee osteoarthritis Knee X ray: No acute fracture or dislocation within the right knee. Severe tricompartmental osteoarthritis and multiple intra-articular loose bodies again noted. Chronic lateral subluxation of the patella. Very high risk for given comorbidities. Pain control Appreciate orthopedics input Continue PT/OT Awaiting rehab placement May need follow-up with pain clinic as outpatient Continue current medications (2) GEGE (acute kidney injury): Likely secondary to dehydration Received IV fluids Monitor renal function Resolved (3) Acute dehydration: As above (4) UTI (urinary tract infection): Urine Cx: Klebsiella pneumonia--pansensitive Completed IV ciprofloxacin course (5) Falls: PT and OT Waiting Rehab placement labs checked Cr at baseline ROS-No Headache, No Visual Changes, No Nausea, No Vomiting, No Fever, No Chills, No Neck Pain or Stiffness, No Chest Pain, No Palpitations, No SOB, No PEDRAZA, No Cough, No Sputum, No Wheezing, No Abdominal Pain, No Diarrhea, No Hematemesis, No Hemoptysis, No Unexpected Weight Loss, No Flank pain, No Melena, No Hematochezia, No Frequency, No Urgency, No Burning, No Hematuria, No Rashes, No Diaphoresis. Appetite is Normal, c/o anxiety and psych med doses not being correct Physical Exam Gen-AAO x 3, NAD, Afebrile, obese Head-NCAT, EOMI, PERRLA, Anicteric Sclera, No Posterior Pharyngeal Erythema Neck-Supple, No JVD, No Thyromegaly, No Masses, No LAD, No Bruits Lungs-Clear to Auscultation Bilaterally, No Rales, No Rhonchi, No Wheezing, No Crepitus Chest-No S4, +S1, +S2, No S3, + Murmur, No Rubs, No Gallops, No Ectopy Abdomen-Soft, Bowel Sounds Present, Non Tender, Non Distended, No Hepatomegaly, No Splenomegaly, No Palpable Masses, No Rebound, No Rigidity, No Guarding Musculoskeletal-Full Range of Motion Bilaterally, No CVAT Extremities-No Cyanosis, No Clubbing, No Edema, L AKA Nuero-Cranial Nerves II-XII grossly intact, Motor WNL, DTRs WNL, Strength WNL, Non Focal Psych-Normal Mood (6) Hypertension: Stable (7) Chronic anemia: (8) Diabetic peripheral neuropathy associated with type 2 diabetes mellitus: (9) Major depressive disorder, recurrent severe without psychotic features: Continue home medications Right Heel Pain Pain control Continue Waffle [employer] HIV disease Continue antiviral medications DVT prophylaxis Lovenox SQ CODE STATUS Full Code Disposition Case management working on placement Waiting for rehab placement Admission and Anticipated Discharge Date Admission Date: February 22, 2020 Results & Data Results & Data ([facility]) Vital Signs (Past 12 Hours) Vital Signs Temp Pulse Pulse Resp BP BP Pulse Ox 03/23/20 08:18 36.8 C 20 L 73 20 111/73 96 03/23/20 00:00 37.0 C 62 14 102/64 94 (1) UTI (urinary tract infection) Hematuria presence: with hematuria Urinary tract infection type: acute cystitis Qualified Code(s): N30.01 - Acute cystitis with hematuria
[2020-03-23] MEDS: hydrOXYzine HCl 25 MG TAB PO PRN (13:15)
[2020-03-23] MEDS ORDERED: clonazePAM 0.5 MG TAB PO STA (20:39)
[2020-03-23] MEDS: DESCOVY PO SCH (20:58)
[2020-03-23] MEDS ORDERED: GLUCAGON FOR INJ 1 MG VIAL SQ PRN (23:00)
[2020-03-23] MEDS ORDERED: DEXTROSE 50% 50 ML SYRINGE IV PRN (23:00)
[2020-03-23] MEDS ORDERED: CARBOHYDRATES FOR HYPOGLYCEMIA PO PRN (23:00)
[2020-03-23] MEDS ORDERED: GLUCOSE 40% GEL 15 GM TUBE PO PRN (23:00)
[2020-03-23] MEDS ORDERED: GLUCOSE 10 TABS/TUBE PO PRN (23:00)
[2020-03-23] MEDS: DOLUTEGRAVIR SODIUM 50 MG TAB PO SCH (23:24)
[2020-03-24 06:15] LABS: Prothrombin Time 10.4 Seconds (9.0-12.0)
[2020-03-24] MEDS: INSULIN ASPART 100 UNITS/ML 3 ML PEN SC SCH ×4 (08:52→20:19)
[2020-03-24] MEDS: INSULIN GLARGINE SOLOSTAR 100 UNITS/ML 3 ML PEN SC SCH (08:53)
[2020-03-24] MEDS: clonazePAM 0.5 MG TAB PO PRN ×2 (08:53→19:58)
[2020-03-24] MEDS: oxyCODONE HCL IR 5 MG TAB (IMMEDIATE RELEASE) PO PRN ×2 (08:54→19:57)
[2020-03-24] MEDS: fluvoxaMINE MALEATE 50 MG TAB PO SCH ×2 (08:55→19:58)
[2020-03-24] MEDS: busPIRone 7.5 MG TAB PO SCH ×2 (08:55→19:59)
[2020-03-24] MEDS: DOCUSATE SODIUM/SENNA 50/8.6MG TAB PO SCH ×2 (08:56→19:58)
[2020-03-24] MEDS: ACETAMINOPHEN 500 MG TAB PO SCH ×3 (08:56→20:02)
[2020-03-24] MEDS: risperiDONE 0.5 MG TABLET PO SCH ×2 (08:56→19:57)
[2020-03-24] MEDS: hydrOXYzine HCl 25 MG TAB PO SCH ×3 (08:56→19:58)
[2020-03-24] MEDS: LIDOCAINE 5% 1 PATCH TD SCH (08:56)
[2020-03-24] MEDS: ENOXAPARIN INJ 40 MG/0.4 ML SYR SQ SCH ×2 (08:57→20:00)
[2020-03-24] MEDS: DICLOFENAC SOD 1% GEL 100 GM TUBE EXT SCH ×2 (08:57→19:59)
--- NOTE | 2020-03-24 09:57 | Hospitalist Progress Note ---
Date of Service March 24, 2020 Assessment & Plan (1) Acute hyperglycemia: H/O DM II Presented with high blood sugar around 400 is due to receiving steroid injection in the right knee joint 1 day prior to admission HbA1C:8.2 Appreciate pharmacy input and recommendations Plan to resume Metformin upon discharge Monitor BGs Continue Insulin therapy while hospitalized Right Knee osteoarthritis Knee X ray: No acute fracture or dislocation within the right knee. Severe tricompartmental osteoarthritis and multiple intra-articular loose bodies again noted. Chronic lateral subluxation of the patella. Very high risk for given comorbidities. Pain control Appreciate orthopedics input Continue PT/OT Awaiting rehab placement May need follow-up with pain clinic as outpatient Continue current medications (2) GEGE (acute kidney injury): Likely secondary to dehydration Received IV fluids Monitor renal function Resolved (3) Acute dehydration: As above (4) UTI (urinary tract infection): Urine Cx: Klebsiella pneumonia--pansensitive Completed IV ciprofloxacin course (5) Falls: PT and OT Waiting Rehab placement labs checked Cr at baseline ROS-No Headache, No Visual Changes, No Nausea, No Vomiting, No Fever, No Chills, No Neck Pain or Stiffness, No Chest Pain, No Palpitations, No SOB, No PEDRAZA, No Cough, No Sputum, No Wheezing, No Abdominal Pain, No Diarrhea, No Hematemesis, No Hemoptysis, No Unexpected Weight Loss, No Flank pain, No Melena, No Hematochezia, No Frequency, No Urgency, No Burning, No Hematuria, No Rashes, No Diaphoresis. Appetite is Normal, c/o anxiety and psych med doses not being correct Physical Exam Gen-AAO x 3, NAD, Afebrile, obese Head-NCAT, EOMI, PERRLA, Anicteric Sclera, No Posterior Pharyngeal Erythema Neck-Supple, No JVD, No Thyromegaly, No Masses, No LAD, No Bruits Lungs-Clear to Auscultation Bilaterally, No Rales, No Rhonchi, No Wheezing, No Crepitus Chest-No S4, +S1, +S2, No S3, + Murmur, No Rubs, No Gallops, No Ectopy Abdomen-Soft, Bowel Sounds Present, Non Tender, Non Distended, No Hepatomegaly, No Splenomegaly, No Palpable Masses, No Rebound, No Rigidity, No Guarding Musculoskeletal-Full Range of Motion Bilaterally, No CVAT Extremities-No Cyanosis, No Clubbing, No Edema, L AKA Nuero-Cranial Nerves II-XII grossly intact, Motor WNL, DTRs WNL, Strength WNL, Non Focal Psych-Normal Mood (6) Hypertension: Stable (7) Chronic anemia: (8) Diabetic peripheral neuropathy associated with type 2 diabetes mellitus: (9) Major depressive disorder, recurrent severe without psychotic features: Continue home medications Right Heel Pain Pain control Continue W[employer] HIV disease Continue antiviral medications DVT prophylaxis Lovenox SQ CODE STATUS Full Code Disposition Case management working on placement Waiting for rehab placement Admission and Anticipated Discharge Date Admission Date: February 22, 2020 Results & Data Results & Data ([facility]) Vital Signs (Past 12 Hours) Vital Signs Temp Pulse Resp BP Pulse Ox 03/24/20 07:43 36.9 C 71 16 114/76 93 03/23/20 23:43 37.0 C 70 14 100/63 95 (1) UTI (urinary tract infection) Hematuria presence: with hematuria Urinary tract infection type: acute cystitis Qualified Code(s): N30.01 - Acute cystitis with hematuria
[2020-03-24] MEDS: DESCOVY PO SCH (19:59)
[2020-03-24] MEDS: DOLUTEGRAVIR SODIUM 50 MG TAB PO SCH (19:59)
[2020-03-25] MEDS: DOCUSATE SODIUM/SENNA 50/8.6MG TAB PO SCH ×2 (07:56→20:39)
[2020-03-25] MEDS: risperiDONE 0.5 MG TABLET PO SCH ×2 (07:57→20:38)
[2020-03-25] MEDS: fluvoxaMINE MALEATE 50 MG TAB PO SCH ×2 (07:57→20:38)
[2020-03-25] MEDS: ENOXAPARIN INJ 40 MG/0.4 ML SYR SQ SCH ×2 (07:57→20:41)
[2020-03-25] MEDS: busPIRone 7.5 MG TAB PO SCH ×2 (07:57→20:38)
[2020-03-25] MEDS: DICLOFENAC SOD 1% GEL 100 GM TUBE EXT SCH ×2 (07:58→20:42)
[2020-03-25] MEDS: LIDOCAINE 5% 1 PATCH TD SCH (07:59)
[2020-03-25] MEDS: hydrOXYzine HCl 25 MG TAB PO SCH ×3 (08:00→20:38)
[2020-03-25] MEDS: oxyCODONE HCL IR 5 MG TAB (IMMEDIATE RELEASE) PO PRN ×2 (08:03→20:38)
[2020-03-25] MEDS: ACETAMINOPHEN 500 MG TAB PO SCH ×3 (08:04→20:38)
[2020-03-25] MEDS: clonazePAM 0.5 MG TAB PO PRN ×2 (08:04→20:38)
[2020-03-25] MEDS: INSULIN GLARGINE SOLOSTAR 100 UNITS/ML 3 ML PEN SC SCH (08:40)
[2020-03-25] MEDS: INSULIN ASPART 100 UNITS/ML 3 ML PEN SC SCH ×4 (08:41→20:49)
--- NOTE | 2020-03-25 09:01 | Hospitalist Progress Note ---
Date of Service March 25, 2020 Assessment & Plan (1) Acute hyperglycemia: H/O DM II Presented with high blood sugar around 400 is due to receiving steroid injection in the right knee joint 1 day prior to admission HbA1C:8.2 Appreciate pharmacy input and recommendations Plan to resume Metformin upon discharge Monitor BGs Continue Insulin therapy while hospitalized Right Knee osteoarthritis Knee X ray: No acute fracture or dislocation within the right knee. Severe tricompartmental osteoarthritis and multiple intra-articular loose bodies again noted. Chronic lateral subluxation of the patella. Very high risk for given comorbidities. Pain control Appreciate orthopedics input Continue PT/OT Awaiting rehab placement May need follow-up with pain clinic as outpatient Continue current medications (2) GEGE (acute kidney injury): Likely secondary to dehydration Received IV fluids Monitor renal function Resolved (3) Acute dehydration: As above (4) UTI (urinary tract infection): Urine Cx: Klebsiella pneumonia--pansensitive Completed IV ciprofloxacin course (5) Falls: PT and OT Waiting Rehab placement labs checked Cr at baseline ROS-No Headache, No Visual Changes, No Nausea, No Vomiting, No Fever, No Chills, No Neck Pain or Stiffness, No Chest Pain, No Palpitations, No SOB, No PEDRAZA, No Cough, No Sputum, No Wheezing, No Abdominal Pain, No Diarrhea, No Hematemesis, No Hemoptysis, No Unexpected Weight Loss, No Flank pain, No Melena, No Hematochezia, No Frequency, No Urgency, No Burning, No Hematuria, No Rashes, No Diaphoresis. Appetite is Normal Physical Exam Gen-AAO x 3, NAD, Afebrile, obese Head-NCAT, EOMI, PERRLA, Anicteric Sclera, No Posterior Pharyngeal Erythema Neck-Supple, No JVD, No Thyromegaly, No Masses, No LAD, No Bruits Lungs-Clear to Auscultation Bilaterally, No Rales, No Rhonchi, No Wheezing, No Crepitus Chest-No S4, +S1, +S2, No S3, + Murmur, No Rubs, No Gallops, No Ectopy Abdomen-Soft, Bowel Sounds Present, Non Tender, Non Distended, No Hepatomegaly, No Splenomegaly, No Palpable Masses, No Rebound, No Rigidity, No Guarding Musculoskeletal-Full Range of Motion Bilaterally, No CVAT Extremities-No Cyanosis, No Clubbing, No Edema, L AKA Nuero-Cranial Nerves II-XII grossly intact, Motor WNL, DTRs WNL, Strength WNL, Non Focal Psych-Normal Mood (6) Hypertension: Stable (7) Chronic anemia: (8) Diabetic peripheral neuropathy associated with type 2 diabetes mellitus: (9) Major depressive disorder, recurrent severe without psychotic features: Continue home medications Right Heel Pain Pain control Continue W[employer] HIV disease Continue antiviral medications DVT prophylaxis Lovenox SQ CODE STATUS Full Code Disposition Case management working on placement Waiting for rehab placement Admission and Anticipated Discharge Date Admission Date: February 22, 2020 Results & Data Results & Data ([facility]) Vital Signs (Past 12 Hours) Vital Signs Temp Pulse Pulse Resp BP Pulse Ox 03/25/20 07:33 37 C 75 16 106/72 99 03/25/20 00:06 36.6 C 55 L 16 101/64 96 (1) UTI (urinary tract infection) Hematuria presence: with hematuria Urinary tract infection type: acute cystitis Qualified Code(s): N30.01 - Acute cystitis with hematuria
[2020-03-25] MEDS: DOLUTEGRAVIR SODIUM 50 MG TAB PO SCH (20:38)
[2020-03-25] MEDS: DESCOVY PO SCH (20:39)
[2020-03-26] MEDS: LIDOCAINE 5% 1 PATCH TD SCH (07:31)
[2020-03-26] MEDS: busPIRone 7.5 MG TAB PO SCH ×2 (07:31→20:22)
[2020-03-26] MEDS: fluvoxaMINE MALEATE 50 MG TAB PO SCH ×2 (07:35→20:23)
[2020-03-26] MEDS: DICLOFENAC SOD 1% GEL 100 GM TUBE EXT SCH ×2 (07:36→20:25)
[2020-03-26] MEDS: hydrOXYzine HCl 25 MG TAB PO SCH ×3 (07:36→20:24)
[2020-03-26] MEDS: risperiDONE 0.5 MG TABLET PO SCH ×2 (07:36→20:23)
[2020-03-26] MEDS: oxyCODONE HCL IR 5 MG TAB (IMMEDIATE RELEASE) PO PRN ×2 (07:40→20:21)
[2020-03-26] MEDS: clonazePAM 0.5 MG TAB PO PRN ×2 (07:41→20:21)
[2020-03-26] MEDS: INSULIN GLARGINE SOLOSTAR 100 UNITS/ML 3 ML PEN SC SCH (09:11)
[2020-03-26] MEDS: INSULIN ASPART 100 UNITS/ML 3 ML PEN SC SCH ×4 (09:11→20:36)
[2020-03-26] MEDS: ACETAMINOPHEN 500 MG TAB PO SCH ×3 (09:12→20:24)
[2020-03-26] MEDS: DOCUSATE SODIUM/SENNA 50/8.6MG TAB PO SCH ×2 (09:12→20:23)
[2020-03-26] MEDS: ENOXAPARIN INJ 40 MG/0.4 ML SYR SQ SCH ×2 (09:13→20:22)
[2020-03-26] MEDS: MICONAZOLE NITRATE POWDER 43 GM EXT PRN (10:41)
--- NOTE | 2020-03-26 12:26 | Hospitalist Progress Note ---
Date of Service March 26, 2020 Assessment & Plan (1) Acute hyperglycemia: H/O DM II Presented with high blood sugar around 400 is due to receiving steroid injection in the right knee joint 1 day prior to admission HbA1C:8.2 Appreciate pharmacy input and recommendations Plan to resume Metformin upon discharge Monitor BGs Continue Insulin therapy while hospitalized Right Knee osteoarthritis Knee X ray: No acute fracture or dislocation within the right knee. Severe tricompartmental osteoarthritis and multiple intra-articular loose bodies again noted. Chronic lateral subluxation of the patella. Very high risk for given comorbidities. Pain control Appreciate orthopedics input Continue PT/OT Awaiting rehab placement May need follow-up with pain clinic as outpatient Continue current medications (2) GEGE (acute kidney injury): Likely secondary to dehydration Received IV fluids Monitor renal function Resolved (3) Acute dehydration: As above (4) UTI (urinary tract infection): Urine Cx: Klebsiella pneumonia--pansensitive Completed IV ciprofloxacin course (5) Falls: PT and OT Waiting placement labs checked Cr at baseline ROS-No Headache, No Visual Changes, No Nausea, No Vomiting, No Fever, No Chills, No Neck Pain or Stiffness, No Chest Pain, No Palpitations, No SOB, No PEDRAZA, No Cough, No Sputum, No Wheezing, No Abdominal Pain, No Diarrhea, No Hematemesis, No Hemoptysis, No Unexpected Weight Loss, No Flank pain, No Melena, No Hematochezia, No Frequency, No Urgency, No Burning, No Hematuria, No Rashes, No Diaphoresis. Appetite is Normal Physical Exam Gen-AAO x 3, NAD, Afebrile, obese Head-NCAT, EOMI, PERRLA, Anicteric Sclera, No Posterior Pharyngeal Erythema Neck-Supple, No JVD, No Thyromegaly, No Masses, No LAD, No Bruits Lungs-Clear to Auscultation Bilaterally, No Rales, No Rhonchi, No Wheezing, No Crepitus Chest-No S4, +S1, +S2, No S3, + Murmur, No Rubs, No Gallops, No Ectopy Abdomen-Soft, Bowel Sounds Present, Non Tender, Non Distended, No Hepatomegaly, No Splenomegaly, No Palpable Masses, No Rebound, No Rigidity, No Guarding Musculoskeletal-Full Range of Motion Bilaterally, No CVAT Extremities-No Cyanosis, No Clubbing, No Edema, L AKA Nuero-Cranial Nerves II-XII grossly intact, Motor WNL, DTRs WNL, Strength WNL, Non Focal Psych-Normal Mood (6) Hypertension: Stable (7) Chronic anemia: (8) Diabetic peripheral neuropathy associated with type 2 diabetes mellitus: (9) Major depressive disorder, recurrent severe without psychotic features: Continue home medications Right Heel Pain Pain control Continue Waff[employer] HIV disease Continue antiviral medications DVT prophylaxis Lovenox SQ CODE STATUS Full Code Disposition Case management working on placement Waiting for rehab placement Admission and Anticipated Discharge Date Admission Date: February 22, 2020 Results & Data Results & Data ([facility]) Vital Signs (Past 12 Hours) Vital Signs Temp Pulse Resp BP Pulse Ox 03/26/20 08:15 36.5 C 77 18 131/71 94 (1) UTI (urinary tract infection) Hematuria presence: with hematuria Urinary tract infection type: acute cystitis Qualified Code(s): N30.01 - Acute cystitis with hematuria
[2020-03-26] MEDS: DOLUTEGRAVIR SODIUM 50 MG TAB PO SCH (20:23)
[2020-03-27] MEDS: oxyCODONE HCL IR 5 MG TAB (IMMEDIATE RELEASE) PO PRN ×2 (07:38→20:40)
[2020-03-27] MEDS: clonazePAM 0.5 MG TAB PO PRN ×2 (07:39→20:40)
[2020-03-27] MEDS: LIDOCAINE 5% 1 PATCH TD SCH (07:40)
[2020-03-27] MEDS: DICLOFENAC SOD 1% GEL 100 GM TUBE EXT SCH ×2 (07:41→20:31)
[2020-03-27] MEDS: busPIRone 7.5 MG TAB PO SCH ×2 (07:41→20:30)
[2020-03-27] MEDS: hydrOXYzine HCl 25 MG TAB PO SCH ×3 (07:41→20:30)
[2020-03-27] MEDS: risperiDONE 0.5 MG TABLET PO SCH ×2 (07:42→20:30)
[2020-03-27] MEDS: fluvoxaMINE MALEATE 50 MG TAB PO SCH ×2 (07:42→20:30)
[2020-03-27] MEDS: INSULIN ASPART 100 UNITS/ML 3 ML PEN SC SCH ×4 (08:30→20:52)
[2020-03-27] MEDS: INSULIN GLARGINE SOLOSTAR 100 UNITS/ML 3 ML PEN SC SCH (08:31)
[2020-03-27] MEDS: ENOXAPARIN INJ 40 MG/0.4 ML SYR SQ SCH ×2 (08:31→20:30)
[2020-03-27] MEDS: DOCUSATE SODIUM/SENNA 50/8.6MG TAB PO SCH ×2 (08:32→20:22)
[2020-03-27] MEDS: ACETAMINOPHEN 500 MG TAB PO SCH ×3 (08:32→20:30)
[2020-03-27] MEDS: MICONAZOLE NITRATE POWDER 43 GM EXT PRN ×2 (13:32→20:37)
[2020-03-27] MEDS: DOLUTEGRAVIR SODIUM 50 MG TAB PO SCH (20:30)
--- NOTE | 2020-03-27 20:42 | Hospitalist Progress Note ---
Date of Service March 27, 2020 Assessment & Plan (1) Acute hyperglycemia: H/O DM II Presented with high blood sugar around 400 is due to receiving steroid injection in the right knee joint 1 day prior to admission Most recent HbA1C:8.2 on 03/03 Plan to resume Metformin upon discharge Continue Insulin therapy while hospitalized Right Knee osteoarthritis Knee X ray: No acute fracture or dislocation within the right knee. Severe tricompartmental osteoarthritis and multiple intra-articular loose bodies again noted. Chronic lateral subluxation of the patella. Very high risk for given comorbidities. Ortho on board Recommended conservative treatment at this time including bracing Continue weight-bear as tolerated right lower extremity as per ortho Continue Lidoderm patch Pain control Continue PT/OT May need follow-up with pain clinic as outpatient Waiting for placement (2) Acute dehydration: (3) GEGE (acute kidney injury): Likely secondary to dehydration Received IV fluids Monitor renal function Resolved (4) UTI (urinary tract infection): Urine Cx: Klebsiella pneumonia--pansensitive Completed IV ciprofloxacin course (5) Falls: Continue PT/OT Fall precaution Waiting placement (6) Hypertension: Stable (7) Chronic anemia: (8) Diabetic peripheral neuropathy associated with type 2 diabetes mellitus: (9) Major depressive disorder, recurrent severe without psychotic features: Continue home medications Right Heel Pain Pain control Continue Waffle Boot HIV disease Continue antiviral medications DVT prophylaxis Lovenox SQ CODE STATUS Full Code Disposition Case management working on placement Waiting for rehab placement Admission and Anticipated Discharge Date Admission Date: February 22, 2020 Subjective Pt was seen and examined Lying in bed with no distress Pt is waiting for placement Denies any complaint Physical Exam Physical Exam: General- No acute distress Head- atraumatic Eyes- PERRL, EOMI, ENT- oropharynx clear Neck- supple, no JVD Lungs- clear to auscultation Heart- regular rhythm; no murmur Abdomen- normal bowel sounds, soft, nontender Extremities- no calf tenderness, left AKA Neuro- alert, oriented x 3; PERRL, EOMI; no facial palsy; no dysarthria Skin- warm & dry Results & Data Results & Data ([facility]) Vital Signs (Past 12 Hours) Vital Signs Temp Pulse Resp BP Pulse Ox 03/27/20 16:10 36.6 C 73 18 125/81 92 (1) UTI (urinary tract infection) Hematuria presence: with hematuria Urinary tract infection type: acute cystitis Qualified Code(s): N30.01 - Acute cystitis with hematuria
[2020-03-28] MEDS: fluvoxaMINE MALEATE 50 MG TAB PO SCH ×2 (07:24→19:33)
[2020-03-28] MEDS: clonazePAM 0.5 MG TAB PO PRN ×2 (07:24→19:39)
[2020-03-28] MEDS: oxyCODONE HCL IR 5 MG TAB (IMMEDIATE RELEASE) PO PRN ×2 (07:24→19:38)
[2020-03-28] MEDS: LIDOCAINE 5% 1 PATCH TD SCH (07:25)
[2020-03-28] MEDS: busPIRone 7.5 MG TAB PO SCH ×2 (07:25→19:32)
[2020-03-28] MEDS: risperiDONE 0.5 MG TABLET PO SCH ×2 (07:25→19:33)
[2020-03-28] MEDS: DICLOFENAC SOD 1% GEL 100 GM TUBE EXT SCH ×2 (07:25→19:31)
[2020-03-28] MEDS: hydrOXYzine HCl 25 MG TAB PO SCH ×3 (07:26→19:32)
[2020-03-28] MEDS: DOCUSATE SODIUM/SENNA 50/8.6MG TAB PO SCH ×2 (07:26→19:34)
[2020-03-28] MEDS: INSULIN ASPART 100 UNITS/ML 3 ML PEN SC SCH ×4 (08:31→20:50)
[2020-03-28] MEDS: ENOXAPARIN INJ 40 MG/0.4 ML SYR SQ SCH ×2 (08:32→19:32)
[2020-03-28] MEDS: ACETAMINOPHEN 500 MG TAB PO SCH ×3 (08:32→19:34)
[2020-03-28] MEDS: INSULIN GLARGINE SOLOSTAR 100 UNITS/ML 3 ML PEN SC SCH (08:33)
[2020-03-28] MEDS: DOLUTEGRAVIR SODIUM 50 MG TAB PO SCH (19:33)
--- NOTE | 2020-03-28 19:52 | Hospitalist Progress Note ---
Date of Service March 28, 2020 Assessment & Plan (1) Acute hyperglycemia: H/O DM II Presented with high blood sugar around 400 is due to receiving steroid injection in the right knee joint 1 day prior to admission Most recent HbA1C:8.2 on 03/03 Plan to resume Metformin upon discharge Continue Insulin therapy while hospitalized Right Knee osteoarthritis Knee X ray: No acute fracture or dislocation within the right knee. Severe tricompartmental osteoarthritis and multiple intra-articular loose bodies again noted. Chronic lateral subluxation of the patella. Very high risk for given comorbidities. Ortho on board Recommended conservative treatment at this time including bracing Continue weight-bear as tolerated right lower extremity as per ortho Continue Lidoderm patch Pain control Continue PT/OT May need follow-up with pain clinic as outpatient Waiting for placement (2) Acute dehydration: As above (3) GEGE (acute kidney injury): Likely secondary to dehydration Received IV fluids Monitor renal function Resolved (4) UTI (urinary tract infection): Urine Cx: Klebsiella pneumonia--pansensitive Completed IV ciprofloxacin course (5) Falls: Continue PT/OT Fall precaution Waiting placement (6) Hypertension: Stable (7) Chronic anemia: (8) Diabetic peripheral neuropathy associated with type 2 diabetes mellitus: (9) Major depressive disorder, recurrent severe without psychotic features: Continue home medications Right Heel Pain Pain control Continue Waffle Boot HIV disease Continue antiviral medications DVT prophylaxis Lovenox SQ CODE STATUS Full Code Disposition Case management working on placement Waiting for rehab placement Admission and Anticipated Discharge Date Admission Date: February 22, 2020 Subjective Pt was seen and examined Lying in bed with no distress Waiting for placement Denies any chest pain, palpitation, dizziness and SOB Physical Exam Physical Exam: General- No acute distress Head- atraumatic Eyes- PERRL, EOMI, ENT- oropharynx clear Neck- supple, no JVD Lungs- clear to auscultation Heart- regular rhythm; no murmur Abdomen- normal bowel sounds, soft, nontender Extremities- no calf tenderness, left AKA Neuro- alert, oriented x 3; PERRL, EOMI; no facial palsy; no dysarthria Skin- warm & dry Results & Data Results & Data ([facility]) Vital Signs (Past 12 Hours) Vital Signs Temp Pulse Resp BP Pulse Ox 03/28/20 15:19 36.6 C 62 17 149/80 H 97 (1) UTI (urinary tract infection) Hematuria presence: with hematuria Urinary tract infection type: acute cystitis Qualified Code(s): N30.01 - Acute cystitis with hematuria
[2020-03-29] MEDS: DOCUSATE SODIUM/SENNA 50/8.6MG TAB PO SCH ×2 (07:56→21:20)
[2020-03-29] MEDS: DICLOFENAC SOD 1% GEL 100 GM TUBE EXT SCH ×2 (07:57→21:21)
[2020-03-29] MEDS: ACETAMINOPHEN 500 MG TAB PO SCH ×3 (07:57→21:20)
[2020-03-29] MEDS: LIDOCAINE 5% 1 PATCH TD SCH (07:57)
[2020-03-29] MEDS: fluvoxaMINE MALEATE 50 MG TAB PO SCH ×2 (07:58→21:21)
[2020-03-29] MEDS: risperiDONE 0.5 MG TABLET PO SCH ×2 (07:58→21:21)
[2020-03-29] MEDS: busPIRone 7.5 MG TAB PO SCH ×2 (07:59→21:21)
[2020-03-29] MEDS: ENOXAPARIN INJ 40 MG/0.4 ML SYR SQ SCH ×2 (07:59→21:21)
[2020-03-29] MEDS: hydrOXYzine HCl 25 MG TAB PO SCH ×3 (07:59→21:20)
[2020-03-29] MEDS: MICONAZOLE NITRATE POWDER 43 GM EXT PRN (08:00)
[2020-03-29] MEDS: oxyCODONE HCL IR 5 MG TAB (IMMEDIATE RELEASE) PO PRN ×2 (08:02→21:24)
[2020-03-29] MEDS: clonazePAM 0.5 MG TAB PO PRN ×2 (08:02→21:25)
[2020-03-29] MEDS: INSULIN ASPART 100 UNITS/ML 3 ML PEN SC SCH ×4 (09:36→21:38)
[2020-03-29] MEDS: INSULIN GLARGINE SOLOSTAR 100 UNITS/ML 3 ML PEN SC SCH (09:36)
--- NOTE | 2020-03-29 19:25 | Hospitalist Progress Note ---
Date of Service March 29, 2020 Assessment & Plan (1) Acute hyperglycemia: H/O DM II Presented with high blood sugar around 400 is due to receiving steroid injection in the right knee joint 1 day prior to admission Most recent HbA1C:8.2 on 03/03 Plan to resume Metformin upon discharge Continue Insulin therapy while hospitalized Right Knee osteoarthritis Knee X ray: No acute fracture or dislocation within the right knee. Severe tricompartmental osteoarthritis and multiple intra-articular loose bodies again noted. Chronic lateral subluxation of the patella. Very high risk for given comorbidities. Ortho on board Recommended conservative treatment at this time including bracing Continue weight-bear as tolerated right lower extremity as per ortho Continue Lidoderm patch Pain control Continue PT/OT May need follow-up with pain clinic as outpatient Waiting for placement (2) Acute dehydration: (3) GEGE (acute kidney injury): Likely secondary to dehydration Received IV fluids Monitor renal function Resolved (4) UTI (urinary tract infection): Urine Cx: Klebsiella pneumonia--pansensitive Completed IV ciprofloxacin course (5) Falls: Continue PT/OT Fall precaution Waiting placement (6) Hypertension: Stable (7) Chronic anemia: (8) Diabetic peripheral neuropathy associated with type 2 diabetes mellitus: (9) Major depressive disorder, recurrent severe without psychotic features: Continue home medications Right Heel Pain Pain control Continue Waffle Boot HIV disease Continue antiviral medications DVT prophylaxis Lovenox SQ CODE STATUS Full Code Disposition Case management working on placement Waiting for rehab placement Admission and Anticipated Discharge Date Admission Date: February 22, 2020 Subjective Pt was seen and examined Lying in bed with no distress Denies any chest pain, palpitation, dizziness and SOB Physical Exam Physical Exam: General- No acute distress Head- atraumatic Eyes- PERRL, EOMI, ENT- oropharynx clear Neck- supple, no JVD Lungs- clear to auscultation Heart- regular rhythm; no murmur Abdomen- normal bowel sounds, soft, nontender Extremities- no calf tenderness, left AKA Neuro- alert, oriented x 3; PERRL, EOMI; no facial palsy; no dysarthria Skin- warm & dry Results & Data Results & Data ([facility]) Vital Signs (Past 12 Hours) Vital Signs Temp Pulse Resp BP Pulse Ox 03/29/20 15:37 36.7 C 61 19 141/83 H 96 03/29/20 08:14 36.5 C 69 18 129/80 92 (1) UTI (urinary tract infection) Hematuria presence: with hematuria Urinary tract infection type: acute cystitis Qualified Code(s): N30.01 - Acute cystitis with hematuria
[2020-03-29] MEDS: DOLUTEGRAVIR SODIUM 50 MG TAB PO SCH (21:20)
[2020-03-30] MEDS: INSULIN ASPART 100 UNITS/ML 3 ML PEN SC SCH ×4 (09:06→21:53)
[2020-03-30] MEDS: INSULIN GLARGINE SOLOSTAR 100 UNITS/ML 3 ML PEN SC SCH (09:08)
[2020-03-30] MEDS: ACETAMINOPHEN 500 MG TAB PO SCH ×3 (09:11→21:38)
[2020-03-30] MEDS: DOCUSATE SODIUM/SENNA 50/8.6MG TAB PO SCH ×2 (09:12→21:38)
[2020-03-30] MEDS: fluvoxaMINE MALEATE 50 MG TAB PO SCH ×2 (09:12→21:37)
[2020-03-30] MEDS: risperiDONE 0.5 MG TABLET PO SCH ×2 (09:12→21:38)
[2020-03-30] MEDS: busPIRone 7.5 MG TAB PO SCH ×2 (09:12→21:38)
[2020-03-30] MEDS: DICLOFENAC SOD 1% GEL 100 GM TUBE EXT SCH ×2 (09:14→21:38)
[2020-03-30] MEDS: hydrOXYzine HCl 25 MG TAB PO SCH ×3 (09:14→21:37)
[2020-03-30] MEDS: ENOXAPARIN INJ 40 MG/0.4 ML SYR SQ SCH ×2 (09:15→21:38)
[2020-03-30] MEDS: LIDOCAINE 5% 1 PATCH TD SCH (09:15)
[2020-03-30] MEDS: clonazePAM 0.5 MG TAB PO PRN ×2 (09:17→21:37)
[2020-03-30] MEDS: oxyCODONE HCL IR 5 MG TAB (IMMEDIATE RELEASE) PO PRN ×2 (09:18→21:37)
--- NOTE | 2020-03-30 18:45 | Hospitalist Progress Note ---
Date of Service March 30, 2020 Assessment & Plan (1) Acute hyperglycemia: H/O DM II Presented with high blood sugar around 400 is due to receiving steroid injection in the right knee joint 1 day prior to admission Most recent HbA1C:8.2 on 03/03 Plan to resume Metformin upon discharge Continue Insulin therapy while hospitalized Right Knee osteoarthritis Knee X ray: No acute fracture or dislocation within the right knee. Severe tricompartmental osteoarthritis and multiple intra-articular loose bodies again noted. Chronic lateral subluxation of the patella. Very high risk for given comorbidities. Ortho on board Recommended conservative treatment at this time including bracing Continue weight-bear as tolerated right lower extremity as per ortho Continue Lidoderm patch Pain control Continue PT/OT May need follow-up with pain clinic as outpatient Waiting for placement (2) Acute dehydration: As above (3) GEGE (acute kidney injury): Likely secondary to dehydration Received IV fluids Monitor renal function Resolved (4) UTI (urinary tract infection): Urine Cx: Klebsiella pneumonia--pansensitive Completed IV ciprofloxacin course (5) Falls: Continue PT/OT Fall precaution Waiting placement (6) Hypertension: Stable (7) Chronic anemia: (8) Diabetic peripheral neuropathy associated with type 2 diabetes mellitus: (9) Major depressive disorder, recurrent severe without psychotic features: Continue home medications Right Heel Pain Pain control Continue Waffle Boot HIV disease Continue antiviral medications DVT prophylaxis Lovenox SQ CODE STATUS Full Code Disposition Case management working on placement Waiting for rehab placement Admission and Anticipated Discharge Date Admission Date: February 22, 2020 Subjective Pt was seen and examined Lying in bed with no distress watching TV She said that she feels ok Denies any chest pain, palpitation, dizziness and SOB Physical Exam Physical Exam: General- No acute distress Head- atraumatic Eyes- PERRL, EOMI, ENT- oropharynx clear Neck- supple, no JVD Lungs- clear to auscultation Heart- regular rhythm; no murmur Abdomen- normal bowel sounds, soft, nontender Extremities- no calf tenderness, left AKA Neuro- alert, oriented x 3; PERRL, EOMI; no facial palsy; no dysarthria Skin- warm & dry Results & Data Results & Data ([facility]) Vital Signs (Past 12 Hours) Vital Signs Temp Pulse Resp BP Pulse Ox 03/30/20 15:15 36.6 C 69 18 102/65 96 03/30/20 08:00 36.9 C 70 16 113/74 98 (1) UTI (urinary tract infection) Hematuria presence: with hematuria Urinary tract infection type: acute cystitis Qualified Code(s): N30.01 - Acute cystitis with hematuria
[2020-03-30] MEDS: DOLUTEGRAVIR SODIUM 50 MG TAB PO SCH (21:37)
[2020-03-30] MEDS: MICONAZOLE NITRATE POWDER 43 GM EXT PRN (21:45)
[2020-03-31] MEDS: clonazePAM 0.5 MG TAB PO PRN ×2 (07:46→21:02)
[2020-03-31] MEDS: oxyCODONE HCL IR 5 MG TAB (IMMEDIATE RELEASE) PO PRN ×2 (07:46→21:02)
[2020-03-31] MEDS: hydrOXYzine HCl 25 MG TAB PO SCH ×3 (07:47→21:03)
[2020-03-31] MEDS: ACETAMINOPHEN 500 MG TAB PO SCH ×3 (07:47→21:02)
[2020-03-31] MEDS: fluvoxaMINE MALEATE 50 MG TAB PO SCH ×2 (07:48→21:02)
[2020-03-31] MEDS: risperiDONE 0.5 MG TABLET PO SCH ×2 (07:48→21:03)
[2020-03-31] MEDS: busPIRone 7.5 MG TAB PO SCH ×2 (07:48→21:03)
[2020-03-31] MEDS: DOCUSATE SODIUM/SENNA 50/8.6MG TAB PO SCH ×2 (07:48→21:03)
[2020-03-31] MEDS: ENOXAPARIN INJ 40 MG/0.4 ML SYR SQ SCH ×2 (07:49→21:03)
[2020-03-31] MEDS: LIDOCAINE 5% 1 PATCH TD SCH (07:49)
[2020-03-31] MEDS: DICLOFENAC SOD 1% GEL 100 GM TUBE EXT SCH ×2 (07:50→21:06)
[2020-03-31] MEDS: INSULIN ASPART 100 UNITS/ML 3 ML PEN SC SCH ×4 (08:33→22:29)
[2020-03-31] MEDS: INSULIN GLARGINE SOLOSTAR 100 UNITS/ML 3 ML PEN SC SCH (08:34)
--- NOTE | 2020-03-31 15:58 | Hospitalist Progress Note ---
Date of Service March 31, 2020 Assessment & Plan (1) Acute hyperglycemia: H/O DM II Presented with high blood sugar around 400 is due to receiving steroid injection in the right knee joint 1 day prior to admission Most recent HbA1C:8.2 on 03/03 Plan to resume Metformin upon discharge Continue Insulin therapy while hospitalized Right Knee osteoarthritis Knee X ray: No acute fracture or dislocation within the right knee. Severe tricompartmental osteoarthritis and multiple intra-articular loose bodies again noted. Chronic lateral subluxation of the patella. Very high risk for given comorbidities. Ortho on board Recommended conservative treatment at this time including bracing Continue weight-bear as tolerated right lower extremity as per ortho Continue Lidoderm patch Pain control Continue PT/OT May need follow-up with pain clinic as outpatient Waiting for placement (2) Acute dehydration: (3) GEGE (acute kidney injury): Likely secondary to dehydration Received IV fluids Monitor renal function Resolved (4) UTI (urinary tract infection): Urine Cx: Klebsiella pneumonia--pansensitive Completed IV ciprofloxacin course (5) Falls: Continue PT/OT Fall precaution Waiting placement (6) Hypertension: Not on any BP med Stable Depression Continue home medications Right Heel Pain Pain control Continue Waffle Boot HIV disease Continue antiviral medications DVT prophylaxis Lovenox SQ CODE STATUS Full Code Disposition Case management working on placement Waiting for rehab placement Admission and Anticipated Discharge Date Admission Date: February 22, 2020 Subjective Pt was seen and examined Lying in bed with no distress watching TV Denies any chest pain, palpitation, dizziness and SOB Physical Exam Physical Exam: General- No acute distress Head- atraumatic Eyes- PERRL, EOMI, ENT- oropharynx clear Neck- supple, no JVD Lungs- clear to auscultation Heart- regular rhythm; no murmur Abdomen- normal bowel sounds, soft, nontender Extremities- no calf tenderness, left AKA Neuro- alert, oriented x 3; PERRL, EOMI; no facial palsy; no dysarthria Skin- warm & dry Results & Data Results & Data ([facility]) Vital Signs (Past 12 Hours) Vital Signs Temp Pulse Resp BP Pulse Ox 03/31/20 15:30 36.7 C 62 18 134/78 97 03/31/20 08:00 36.6 C 76 16 128/77 96 (1) UTI (urinary tract infection) Hematuria presence: with hematuria Urinary tract infection type: acute cystitis Qualified Code(s): N30.01 - Acute cystitis with hematuria
[2020-03-31] MEDS ORDERED: bisacodyL 5 MG TABEC PO ONE (17:14)
[2020-03-31] MEDS: DOLUTEGRAVIR SODIUM 50 MG TAB PO SCH (21:02)
[2020-04-01] MEDS: oxyCODONE HCL IR 5 MG TAB (IMMEDIATE RELEASE) PO PRN ×2 (07:31→20:49)
[2020-04-01] MEDS: fluvoxaMINE MALEATE 50 MG TAB PO SCH ×2 (07:32→20:49)
[2020-04-01] MEDS: clonazePAM 0.5 MG TAB PO PRN ×2 (07:32→20:49)
[2020-04-01] MEDS: hydrOXYzine HCl 25 MG TAB PO SCH ×3 (07:32→20:49)
[2020-04-01] MEDS: risperiDONE 0.5 MG TABLET PO SCH ×2 (07:32→20:49)
[2020-04-01] MEDS: DOCUSATE SODIUM/SENNA 50/8.6MG TAB PO SCH ×2 (07:32→20:50)
[2020-04-01] MEDS: busPIRone 7.5 MG TAB PO SCH ×2 (07:33→20:49)
[2020-04-01] MEDS: ENOXAPARIN INJ 40 MG/0.4 ML SYR SQ SCH ×2 (07:33→20:50)
[2020-04-01] MEDS: ACETAMINOPHEN 500 MG TAB PO SCH ×3 (07:33→20:49)
[2020-04-01] MEDS: DICLOFENAC SOD 1% GEL 100 GM TUBE EXT SCH ×2 (07:34→20:50)
[2020-04-01] MEDS: LIDOCAINE 5% 1 PATCH TD SCH (07:34)
[2020-04-01] MEDS: INSULIN ASPART 100 UNITS/ML 3 ML PEN SC SCH ×4 (08:34→21:52)
[2020-04-01] MEDS: INSULIN GLARGINE SOLOSTAR 100 UNITS/ML 3 ML PEN SC SCH (08:34)
[2020-04-01] MEDS ORDERED: bisacodyL 5 MG TABEC PO PRN (11:27)
[2020-04-01] MEDS ORDERED: POLYETHYLENE (MIRALAX) 17 GM PACK PO PRN (11:27)
--- NOTE | 2020-04-01 16:44 | Hospitalist Progress Note ---
Date of Service April 01, 2020 Assessment & Plan (1) Acute hyperglycemia: H/O DM II Presented with high blood sugar around 400 is due to receiving steroid injection in the right knee joint 1 day prior to admission Most recent HbA1C:8.2 on 03/03 Plan to resume Metformin upon discharge Continue Insulin therapy while hospitalized Right Knee osteoarthritis Knee X ray: No acute fracture or dislocation within the right knee. Severe tricompartmental osteoarthritis and multiple intra-articular loose bodies again noted. Chronic lateral subluxation of the patella. Very high risk for given comorbidities. Ortho on board Recommended conservative treatment at this time including bracing Continue weight-bear as tolerated right lower extremity as per ortho Continue Lidoderm patch Pain control Continue PT/OT May need follow-up with pain clinic as outpatient Plan to go to [place] for rehab (2) Acute dehydration: (3) GEGE (acute kidney injury): Likely secondary to dehydration Received IV fluids Monitor renal function Resolved (4) UTI (urinary tract infection): Urine Cx: Klebsiella pneumonia--pansensitive Completed IV ciprofloxacin course (5) Falls: Continue PT/OT Fall precaution Waiting placement (6) Hypertension: Not on any BP med Stable Depression Continue home medications Right Heel Pain Pain control Continue Waffle Boot Constipation Possible related to narcotic Will add Dulcolax and miralax HIV disease Continue antiviral medications DVT prophylaxis Lovenox SQ CODE STATUS Full Code Disposition Case management working on placement Waiting for rehab placement Admission and Anticipated Discharge Date Admission Date: February 22, 2020 Subjective Pt was seen and examined Lying in bed with no distress watching TV Pt said that she feels ok Pt said that her last BM was on 03/27 spoke to case management and [place] will be able take her next week Denies any chest pain, palpitation, dizziness and SOB Physical Exam Physical Exam: General- No acute distress Head- atraumatic Eyes- PERRL, EOMI, ENT- oropharynx clear Neck- supple, no JVD Lungs- clear to auscultation Heart- regular rhythm; no murmur Abdomen- normal bowel sounds, soft, nontender Extremities- no calf tenderness, left AKA Neuro- alert, oriented x 3; PERRL, EOMI; no facial palsy; no dysarthria Skin- warm & dry Results & Data Results & Data ([facility]) Vital Signs (Past 12 Hours) Vital Signs Temp Pulse Resp BP Pulse Ox 04/01/20 15:08 36.6 C 60 18 120/76 94 04/01/20 07:36 36.6 C 73 18 115/76 94 (1) UTI (urinary tract infection) Hematuria presence: with hematuria Urinary tract infection type: acute cystitis Qualified Code(s): N30.01 - Acute cystitis with hematuria
[2020-04-01] MEDS: DOLUTEGRAVIR SODIUM 50 MG TAB PO SCH (20:50)
[2020-04-01] MEDS: DESCOVY PO SCH (22:20)
[2020-04-02] MEDS: busPIRone 7.5 MG TAB PO SCH ×2 (08:14→20:42)
[2020-04-02] MEDS: LIDOCAINE 5% 1 PATCH TD SCH (08:15)
[2020-04-02] MEDS: ENOXAPARIN INJ 40 MG/0.4 ML SYR SQ SCH ×2 (08:15→20:44)
[2020-04-02] MEDS: fluvoxaMINE MALEATE 50 MG TAB PO SCH ×2 (08:16→20:42)
[2020-04-02] MEDS: risperiDONE 0.5 MG TABLET PO SCH ×2 (08:17→20:42)
[2020-04-02] MEDS: ACETAMINOPHEN 500 MG TAB PO SCH ×3 (08:17→20:41)
[2020-04-02] MEDS: DOCUSATE SODIUM/SENNA 50/8.6MG TAB PO SCH ×2 (08:17→20:42)
[2020-04-02] MEDS: hydrOXYzine HCl 25 MG TAB PO SCH ×3 (08:18→20:40)
[2020-04-02] MEDS: DICLOFENAC SOD 1% GEL 100 GM TUBE EXT SCH ×2 (08:18→20:47)
[2020-04-02] MEDS: clonazePAM 0.5 MG TAB PO PRN ×2 (08:20→20:40)
[2020-04-02] MEDS: oxyCODONE HCL IR 5 MG TAB (IMMEDIATE RELEASE) PO PRN ×2 (08:20→17:37)
[2020-04-02] MEDS: INSULIN GLARGINE SOLOSTAR 100 UNITS/ML 3 ML PEN SC SCH (08:22)
[2020-04-02] MEDS: INSULIN ASPART 100 UNITS/ML 3 ML PEN SC SCH ×4 (08:26→21:10)
--- NOTE | 2020-04-02 19:15 | Hospitalist Progress Note ---
Date of Service April 02, 2020 Assessment & Plan (1) Acute hyperglycemia: H/O DM II Presented with high blood sugar around 400 is due to receiving steroid injection in the right knee joint 1 day prior to admission Most recent HbA1C:8.2 on 03/03 Plan to resume Metformin upon discharge Continue Insulin therapy while hospitalized Right Knee osteoarthritis Knee X ray: No acute fracture or dislocation within the right knee. Severe tricompartmental osteoarthritis and multiple intra-articular loose bodies again noted. Chronic lateral subluxation of the patella. Very high risk for given comorbidities. Ortho on board Recommended conservative treatment at this time including bracing Continue weight-bear as tolerated right lower extremity as per ortho Continue Lidoderm patch Pain control Continue PT/OT May need follow-up with pain clinic as outpatient Plan to go to [place] for rehab next week (2) Acute dehydration: (3) GEGE (acute kidney injury): Likely secondary to dehydration Received IV fluids Monitor renal function Resolved (4) UTI (urinary tract infection): Urine Cx: Klebsiella pneumonia--pansensitive Completed IV ciprofloxacin course (5) Falls: Continue PT/OT Fall precaution Waiting placement week to [place] (6) Hypertension: Not on any BP med Stable Depression Continue home medications Right Heel Pain Pain control Continue Waffle Boot Constipation Possible related to narcotic Will add Dulcolax and miralax HIV disease Continue antiviral medications DVT prophylaxis Lovenox SQ CODE STATUS Full Code Disposition Case management working on placement Waiting for rehab placement next week Admission and Anticipated Discharge Date Admission Date: February 22, 2020 Subjective Pt was seen and examined Lying in bed with no distress watching TV Pt said that she was able to have 4 bowel movements yesterday after getting the laxative and stool softener Denies any chest pain, palpitation, dizziness and SOB Physical Exam Physical Exam: General- No acute distress Head- atraumatic Eyes- PERRL, EOMI, ENT- oropharynx clear Neck- supple, no JVD Lungs- clear to auscultation Heart- regular rhythm; no murmur Abdomen- normal bowel sounds, soft, nontender Extremities- no calf tenderness, left AKA Neuro- alert, oriented x 3; PERRL, EOMI; no facial palsy; no dysarthria Skin- warm & dry Results & Data Results & Data ([facility]) Vital Signs (Past 12 Hours) Vital Signs Temp Pulse Resp BP BP Pulse Ox 04/02/20 15:46 36.4 C L 61 16 131/80 95 04/02/20 07:52 36.3 C L 69 18 122/78 97 (1) UTI (urinary tract infection) Hematuria presence: with hematuria Urinary tract infection type: acute cysti tis Qualified Code(s): N30.01 - Acute cystitis with hematuria
[2020-04-02] MEDS: DOLUTEGRAVIR SODIUM 50 MG TAB PO SCH (20:42)
[2020-04-02] MEDS: DESCOVY PO SCH (20:43)
[2020-04-03] MEDS: DICLOFENAC SOD 1% GEL 100 GM TUBE EXT SCH ×2 (08:11→20:53)
[2020-04-03] MEDS: oxyCODONE HCL IR 5 MG TAB (IMMEDIATE RELEASE) PO PRN ×2 (08:11→17:01)
[2020-04-03] MEDS: clonazePAM 0.5 MG TAB PO PRN ×2 (08:11→20:51)
[2020-04-03] MEDS: LIDOCAINE 5% 1 PATCH TD SCH (08:12)
[2020-04-03] MEDS: DOCUSATE SODIUM/SENNA 50/8.6MG TAB PO SCH ×2 (08:13→20:51)
[2020-04-03] MEDS: ACETAMINOPHEN 500 MG TAB PO SCH ×3 (08:13→20:51)
[2020-04-03] MEDS: risperiDONE 0.5 MG TABLET PO SCH ×2 (08:13→20:51)
[2020-04-03] MEDS: hydrOXYzine HCl 25 MG TAB PO SCH ×3 (08:14→20:51)
[2020-04-03] MEDS: fluvoxaMINE MALEATE 50 MG TAB PO SCH ×2 (08:14→20:51)
[2020-04-03] MEDS: busPIRone 7.5 MG TAB PO SCH ×2 (08:15→20:51)
[2020-04-03] MEDS: INSULIN GLARGINE SOLOSTAR 100 UNITS/ML 3 ML PEN SC SCH (08:16)
[2020-04-03] MEDS: ENOXAPARIN INJ 40 MG/0.4 ML SYR SQ SCH ×2 (08:16→20:53)
--- NOTE | 2020-04-03 08:48 | Hospitalist Progress Note ---
Date of Service April 03, 2020 Assessment & Plan (1) Acute hyperglycemia: H/O DM II Presented with high blood sugar around 400 is due to receiving steroid injection in the right knee joint 1 day prior to admission Most recent HbA1C:8.2 on 03/03 Plan to resume Metformin upon discharge Continue Insulin therapy while hospitalized Right Knee osteoarthritis Knee X ray: No acute fracture or dislocation within the right knee. Severe tricompartmental osteoarthritis and multiple intra-articular loose bodies again noted. Chronic lateral subluxation of the patella. Very high risk for given comorbidities. Ortho on board Recommended conservative treatment at this time including bracing Continue weight-bear as tolerated right lower extremity as per ortho Continue Lidoderm patch Pain control Continue PT/OT May need follow-up with pain clinic as outpatient Plan to go to [place] for rehab next week (2) Acute dehydration: As above (3) GEGE (acute kidney injury): Likely secondary to dehydration Received IV fluids Monitor renal function Resolved (4) UTI (urinary tract infection): Urine Cx: Klebsiella pneumonia--pansensitive Completed IV ciprofloxacin course (5) Falls: Continue PT/OT Fall precaution Waiting placement week to [place] (6) Hypertension: Not on any BP med Stable Depression Continue home medications Right Heel Pain Pain control Continue Waffle Boot Constipation Possible related to narcotic Will add Dulcolax and miralax HIV disease Continue antiviral medications DVT prophylaxis Lovenox SQ CODE STATUS Full Code Disposition Case management working on placement Waiting for rehab placement next week Admission and Anticipated Discharge Date Admission Date: February 22, 2020 Subjective Pt was seen and examined Sitting up in bed with no distress Reports chronic knee pain Denies any chest pain, palpitation, dizziness and SOB Review of Systems Review of Systems: All systems reviewed & are unremarkable except as noted in HPI & below Constitutional: no fever and no chills Respiratory: no cough and no dyspnea Cardiovascular: no chest pain and no palpitations Gastrointestinal: no abdominal pain, no nausea and no vomiting Physical Exam Physical Exam: General- No acute distress Head- atraumatic Eyes- PERRL, EOMI ENT- oropharynx clear Neck- supple, no JVD Lungs- clear to auscultation Heart- regular rhythm; no murmur Abdomen- normal bowel sounds, soft, nontender Extremities- no calf tenderness, left AKA Neuro- alert, oriented x 3; PERRL, EOMI; no facial palsy; no dysarthria Skin- warm & dry Results & Data Results & Data ([facility]) Vital Signs (Past 12 Hours) Vital Signs Temp Pulse Pulse Resp BP BP Pulse Ox 04/03/20 08:20 36.5 C 74 16 148/83 H 96 04/02/20 23:28 36.7 C 68 18 92/57 L 94 Laboratory Results 04/03/20 04/02/20 Range/Units 08:28 11:57 POC Glucose 126 H 149 H (70-99) mg/dl Medications Administered Current Inpatient Medications Acetaminophen (Acetaminophen 500 Mg Tab) 1,000 mg PO TID ALEKS Stop: 04/09/20 13:59 Last Admin: 04/03/20 08:13 Dose: 1,000 mg Documented by: Bisacodyl (Bisacodyl 5 Mg Tabec) 5 mg PO DAILY PRN PRN Reason: Constipation Stop: 05/01/20 11:26 Buspirone HCl (Buspirone 7.5 Mg Tab) 7.5 mg PO BID ALEKS Stop: 04/22/20 22:44 Last Admin: 04/03/20 08:15 Dose: 7.5 mg Documented by: Clonazepam (Clonazepam 0.5 Mg Tab) 0.5 mg PO BID PRN PRN Reason: Anxiety Stop: 04/23/20 07:53 Last Admin: 04/03/20 08:11 Dose: 0.5 mg Documented by: Dextrose (Dextrose 50% 50 Ml Syringe) 25 - 50 ml IV UD PRN; Protocol PRN Reason: Hypoglycemia Protocol Stop: 04/22/20 22:59 Diclofenac Sodium (Diclofenac Sod 1% Gel 100 Gm Tube) 4 gm EXT BID ALEKS Stop: 04/09/20 08:59 Last Admin: 04/03/20 08:11 Dose: 4 gm Documented by: Dolutegravir Sodium (Dolutegravir Sodium 50 Mg Tab) 50 mg PO HS ALEKS Stop: 04/22/20 22:44 Last Admin: 04/02/20 20:42 Dose: 50 mg Documented by: Enoxaparin Sodium (Enoxaparin Inj 40 Mg/0.4 Ml Syr) 40 mg SQ Q12 ALEKS Stop: 04/22/20 22:44 Last Admin: 04/03/20 08:16 Dose: 40 mg Documented by: Fluvoxamine Maleate (Fluvoxamine Maleate 50 Mg Tab) 100 mg PO BID ALEKS Stop: 04/22/20 22:44 Last Admin: 04/03/20 08:14 Dose: 100 mg Documented by: Glucagon (Glucagon For Inj 1 Mg Vial) 1 mg SQ UD PRN; Protocol PRN Reason: Hypoglycemia Protocol Stop: 04/22/20 22:59 Glucose (Glucose 40% Gel 15 Gm Tube) 15 - 30 gm PO UD PRN; Protocol PRN Reason: Hypoglycemia Protocol Stop: 04/22/20 22:59 Glucose (Glucose 10 Tabs/Tube) 4 - 8 tabs PO UD PRN; Protocol PRN Reason: Hypoglycemia Protocol Stop: 04/22/20 22:59 Hydroxyzine HCl (Hydroxyzine Hcl 25 Mg Tab) 50 mg PO TID PRN PRN Reason: Anxiety/Agitation Stop: 04/19/20 14:51 Last Admin: 03/23/20 13:15 Dose: 50 mg Documented by: Hydroxyzine HCl (Hydroxyzine Hcl 25 Mg Tab) 50 mg PO TID [facility] Stop: 04/23/20 08:59 Last Admin: 04/03/20 08:14 Dose: 50 mg Documented by: Insulin Aspart (Insulin Aspart 100 Units/Ml 3 Ml Pen) 0 units SC ACHS [facility] Stop: 04/23/20 07:29 Last Admin: 04/02/20 21:10 Dose: Not Given Documented by: Insulin Glargine (Insulin Glargine Solostar 100 Units/Ml 3 Ml Pen) 15 units SC QAM [facility] Stop: 04/07/20 08:59 Last Admin: 04/03/20 08:16 Dose: 15 units Documented by: Lidocaine (Lidocaine 5% 1 Patch) [facility] Stop: 04/19/20 08:59 Last Admin: 04/03/20 08:12 Dose: 1 patch Documented by: Miconazole Nitrate (Miconazole Nitrate Powder 43 Gm) 1 appln EXT PRN PRN PRN Reason: AFFECTED SKIN Stop: 04/11/20 12:49 Last Admin: 03/30/20 21:45 Dose: 1 appln Documented by: Miscellaneous (Remove Lidoderm Patch) 1 ea N/A DAILY@2100 [facility] Stop: 04/19/20 20:59 Last Admin: 04/02/20 20:48 Dose: 1 ea Documented by: Miscellaneous (Carbohydrates For Hypoglycemia ) 15 - 30 gm PO UD PRN PRN Reason: Hypoglycemia Treatment Stop: 04/22/20 22:59 Descovy: Non- Formulary Patient's Own Med 1 ea PO HS [facility]; Protocol Stop: 05/01/20 20:59 Last Admin: 04/02/20 20:43 Dose: 1 ea Documented by: Oxycodone HCl (Oxycodone Hcl Ir 5 Mg Tab (Immediate Release)) 5 mg PO Q8 PRN PRN Reason: Severe Pain Stop: 04/07/20 08:45 Last Admin: 04/03/20 08:11 Dose: 5 mg Documented by: Polyethylene Glycol (Polyethylene (Miralax) 17 Gm Pack) 17 gm PO DAILY PRN PRN Reason: Constipation Stop: 05/01/20 11:26 Last Admin: 04/01/20 12:18 Dose: 17 gm Documented by: Risperidone (Risperidone 0.5 Mg Tablet) 0.5 mg PO BID [facility] Stop: 04/22/20 22:44 Last Admin: 04/03/20 08:13 Dose: 0.5 mg Documented by: Senna/Docusate Sodium (Docusate Sodium/Senna 50/8.6mg Tab) 1 tab PO BID [facility] Stop: 04/09/20 08:59 Last Admin: 04/03/20 08:13 Dose: 1 tab Documented by: (1) UTI (urinary tract infection) Hematuria presence: with hematuria Urinary tract infection type: acute cystitis Qualified Code(s): N30.01 - Acute cystitis with hematuria
[2020-04-03] MEDS: INSULIN ASPART 100 UNITS/ML 3 ML PEN SC SCH ×4 (09:10→22:13)
[2020-04-03] MEDS: DOLUTEGRAVIR SODIUM 50 MG TAB PO SCH (20:51)
[2020-04-03] MEDS: DESCOVY PO SCH (20:52)
[2020-04-04] MEDS: LIDOCAINE 5% 1 PATCH TD SCH (08:03)
[2020-04-04] MEDS: DICLOFENAC SOD 1% GEL 100 GM TUBE EXT SCH ×2 (08:04→21:22)
[2020-04-04] MEDS: clonazePAM 0.5 MG TAB PO PRN (08:08)
[2020-04-04] MEDS: oxyCODONE HCL IR 5 MG TAB (IMMEDIATE RELEASE) PO PRN ×2 (08:08→21:15)
[2020-04-04] MEDS: hydrOXYzine HCl 25 MG TAB PO SCH ×3 (08:09→21:21)
[2020-04-04] MEDS: ENOXAPARIN INJ 40 MG/0.4 ML SYR SQ SCH ×2 (08:09→21:17)
[2020-04-04] MEDS: busPIRone 7.5 MG TAB PO SCH ×2 (08:10→21:19)
[2020-04-04] MEDS: fluvoxaMINE MALEATE 50 MG TAB PO SCH ×2 (08:10→21:17)
[2020-04-04] MEDS: ACETAMINOPHEN 500 MG TAB PO SCH ×3 (08:11→21:18)
[2020-04-04] MEDS: DOCUSATE SODIUM/SENNA 50/8.6MG TAB PO SCH ×2 (08:11→21:16)
[2020-04-04] MEDS: risperiDONE 0.5 MG TABLET PO SCH ×2 (08:11→21:22)
[2020-04-04] MEDS: INSULIN GLARGINE SOLOSTAR 100 UNITS/ML 3 ML PEN SC SCH (09:04)
[2020-04-04] MEDS: INSULIN ASPART 100 UNITS/ML 3 ML PEN SC SCH ×4 (09:06→20:59)
--- NOTE | 2020-04-04 13:07 | Hospitalist Progress Note ---
Date of Service April 04, 2020 Assessment & Plan (1) Acute hyperglycemia: H/O DM II Presented with high blood sugar around 400 is due to receiving steroid injection in the right knee joint 1 day prior to admission Most recent HbA1C:8.2 on 03/03 Plan to resume Metformin upon discharge Continue Insulin therapy while hospitalized Right Knee osteoarthritis Knee X ray: No acute fracture or dislocation within the right knee. Severe tricompartmental osteoarthritis and multiple intra-articular loose bodies again noted. Chronic lateral subluxation of the patella. Very high risk for given comorbidities. Ortho on board Recommended conservative treatment at this time including bracing Continue weight-bear as tolerated right lower extremity as per ortho Continue Lidoderm patch Pain control Continue PT/OT May need follow-up with pain clinic as outpatient Plan to go to [place] for rehab next week (2) Acute dehydration: As above (3) GEGE (acute kidney injury): Likely secondary to dehydration Received IV fluids Monitor renal function Resolved (4) UTI (urinary tract infection): Urine Cx: Klebsiella pneumonia--pansensitive Completed IV ciprofloxacin course (5) Falls: Continue PT/OT Fall precaution Waiting placement week to [place] (6) Hypertension: Not on any BP med Stable Depression Continue home medications Right Heel Pain Pain control Continue Waffle Boot Constipation Possible related to narcotic Will add Dulcolax and miralax HIV disease Continue antiviral medications DVT prophylaxis Lovenox SQ CODE STATUS Full Code Disposition Case management working on placement Waiting for rehab placement next week Admission and Anticipated Discharge Date Admission Date: February 22, 2020 Subjective Pt was seen and examined , follow up chronic conditions Pt is sitting up in bed with no distress Reports chronic knee pain Denies any chest pain, palpitation, dizziness and SOB Review of Systems Review of Systems: All systems reviewed & are unremarkable except as noted in HPI & below Constitutional: no fever and no chills Respiratory: no cough and no dyspnea Cardiovascular: no chest pain and no palpitations Gastrointestinal: no abdominal pain, no nausea and no vomiting Physical Exam Physical Exam: General- No acute distress Head- atraumatic Eyes- PERRL, EOMI ENT- oropharynx clear Neck- supple, no JVD Lungs- clear to auscultation Heart- regular rhythm; no murmur Abdomen- normal bowel sounds, soft, nontender Extremities- no calf tenderness, left AKA Neuro- alert, oriented x 3; PERRL, EOMI; no facial palsy; no dysarthria Skin- warm & dry Results & Data Results & Data ([facility]) Vital Signs (Past 12 Hours) Vital Signs Temp Pulse Resp BP Pulse Ox 04/04/20 07:55 36.2 C L 79 16 132/84 97 Medications Administered Current Inpatient Medications Acetaminophen (Acetaminophen 500 Mg Tab) 1,000 mg PO TID ALEKS Stop: 04/09/20 13:59 Last Admin: 04/04/20 13:27 Dose: 1,000 mg Documented by: Bisacodyl (Bisacodyl 5 Mg Tabec) 5 mg PO DAILY PRN PRN Reason: Constipation Stop: 05/01/20 11:26 Buspirone HCl (Buspirone 7.5 Mg Tab) 7.5 mg PO BID ALEKS Stop: 04/22/20 22:44 Last Admin: 04/04/20 08:10 Dose: 7.5 mg Documented by: Clonazepam (Clonazepam 0.5 Mg Tab) 0.5 mg PO BID PRN PRN Reason: Anxiety Stop: 04/23/20 07:53 Last Admin: 04/04/20 08:08 Dose: 0.5 mg Documented by: Dextrose (Dextrose 50% 50 Ml Syringe) 25 - 50 ml IV UD PRN; Protocol PRN Reason: Hypoglycemia Protocol Stop: 04/22/20 22:59 Diclofenac Sodium (Diclofenac Sod 1% Gel 100 Gm Tube) 4 gm EXT BID ALEKS Stop: 04/09/20 08:59 Last Admin: 04/04/20 08:04 Dose: 4 gm Documented by: Dolutegravir Sodium (Dolutegravir Sodium 50 Mg Tab) 50 mg PO HS ALEKS Stop: 04/22/20 22:44 Last Admin: 04/03/20 20:51 Dose: 50 mg Documented by: Enoxaparin Sodium (Enoxaparin Inj 40 Mg/0.4 Ml Syr) 40 mg SQ Q12 ALEKS Stop: 04/22/20 22:44 Last Admin: 04/04/20 08:09 Dose: 40 mg Documented by: Fluvoxamine Maleate (Fluvoxamine Maleate 50 Mg Tab) 100 mg PO BID ALEKS Stop: 04/22/20 22:44 Last Admin: 04/04/20 08:10 Dose: 100 mg Documented by: Glucagon (Glucagon For Inj 1 Mg Vial) 1 mg SQ UD PRN; Protocol PRN Reason: Hypoglycemia Protocol Stop: 04/22/20 22:59 Glucose (Glucose 40% Gel 15 Gm Tube) 15 - 30 gm PO UD PRN; Protocol PRN Reason: Hypoglycemia Protocol Stop: 04/22/20 22:59 Glucose (Glucose 10 Tabs/Tube) 4 - 8 tabs PO UD PRN; Protocol PRN Reason: Hypoglycemia Protocol Stop: 04/22/20 22:59 Hydroxyzine HCl (Hydroxyzine Hcl 25 Mg Tab) 50 mg PO TID PRN PRN Reason: Anxiety/Agitation Stop: 04/19/20 14:51 Last Admin: 03/23/20 13:15 Dose: 50 mg Documented by: Hydroxyzine HCl (Hydroxyzine Hcl 25 Mg Tab) 50 mg PO TID [facility] Stop: 04/23/20 08:59 Last Admin: 04/04/20 13:27 Dose: 50 mg Documented by: Insulin Aspart (Insulin Aspart 100 Units/Ml 3 Ml Pen) 0 units SC [facility] Stop: 04/23/20 07:29 Last Admin: 04/04/20 13:28 Dose: 4 units Documented by: Insulin Glargine (Insulin Glargine Solostar 100 Units/Ml 3 Ml Pen) 15 units SC [facility] Stop: 04/07/20 08:59 Last Admin: 04/04/20 09:04 Dose: 15 units Documented by: Lidocaine (Lidocaine 5% 1 Patch) 1 patch TD [facility] Stop: 04/19/20 08:59 Last Admin: 04/04/20 08:03 Dose: 1 patch Documented by: Miconazole Nitrate (Miconazole Nitrate Powder 43 Gm) 1 appln EXT PRN PRN PRN Reason: AFFECTED SKIN Stop: 04/11/20 12:49 Last Admin: 03/30/20 21:45 Dose: 1 appln Documented by: Miscellaneous (Remove Lidoderm Patch) 1 ea N/A DAILY@2100 [facility] Stop: 04/19/20 20:59 Last Admin: 04/03/20 20:52 Dose: 1 ea Documented by: Miscellaneous (Carbohydrates For Hypoglycemia ) 15 - 30 gm PO UD PRN PRN Reason: Hypoglycemia Treatment Stop: 04/22/20 22:59 Descovy: Non- Formulary Patient's Own Med 1 ea PO [facility]; Protocol Stop: 05/01/20 20:59 Last Admin: 04/03/20 20:52 Dose: 1 ea Documented by: Oxycodone HCl (Oxycodone Hcl Ir 5 Mg Tab (Immediate Release)) 5 mg PO Q8 PRN PRN Reason: Severe Pain Stop: 04/07/20 08:45 Last Admin: 04/04/20 08:08 Dose: 5 mg Documented by: Polyethylene Glycol (Polyethylene (Miralax) 17 Gm Pack) 17 gm PO DAILY PRN PRN Reason: Constipation Stop: 05/01/20 11:26 Last Admin: 04/01/20 12:18 Dose: 17 gm Documented by: Risperidone (Risperidone 0.5 Mg Tablet) 0.5 mg PO BID [facility] Stop: 04/22/20 22:44 Last Admin: 04/04/20 08:11 Dose: 0.5 mg Documented by: Senna/Docusate Sodium (Docusate Sodium/Senna 50/8.6mg Tab) 1 tab PO BID ALEKS Stop: 04/09/20 08:59 Last Admin: 04/04/20 08:11 Dose: 1 tab Documented by: (1) UTI (urinary tract infection) Hematuria presence: with hematuria Urinary tract infection type: acute cystitis Qualified Code(s): N30.01 - Acute cystitis with hematuria
[2020-04-04] MEDS: DOLUTEGRAVIR SODIUM 50 MG TAB PO SCH (21:18)
[2020-04-04] MEDS: DESCOVY PO SCH (21:20)
[2020-04-05] MEDS: busPIRone 7.5 MG TAB PO SCH ×2 (08:08→20:28)
[2020-04-05] MEDS: risperiDONE 0.5 MG TABLET PO SCH ×2 (08:09→20:29)
[2020-04-05] MEDS: fluvoxaMINE MALEATE 50 MG TAB PO SCH ×2 (08:09→20:28)
[2020-04-05] MEDS: DOCUSATE SODIUM/SENNA 50/8.6MG TAB PO SCH ×2 (08:09→20:29)
[2020-04-05] MEDS: hydrOXYzine HCl 25 MG TAB PO SCH ×3 (08:10→20:30)
[2020-04-05] MEDS: ACETAMINOPHEN 500 MG TAB PO SCH ×3 (08:10→20:29)
[2020-04-05] MEDS: LIDOCAINE 5% 1 PATCH TD SCH (08:11)
[2020-04-05] MEDS: DICLOFENAC SOD 1% GEL 100 GM TUBE EXT SCH ×2 (08:12→20:54)
[2020-04-05] MEDS: clonazePAM 0.5 MG TAB PO PRN ×2 (08:15→20:33)
[2020-04-05] MEDS: oxyCODONE HCL IR 5 MG TAB (IMMEDIATE RELEASE) PO PRN ×2 (08:15→20:33)
[2020-04-05] MEDS: ENOXAPARIN INJ 40 MG/0.4 ML SYR SQ SCH ×2 (08:16→20:27)
[2020-04-05] MEDS: INSULIN GLARGINE SOLOSTAR 100 UNITS/ML 3 ML PEN SC SCH (08:40)
[2020-04-05] MEDS: INSULIN ASPART 100 UNITS/ML 3 ML PEN SC SCH ×4 (08:41→20:37)
--- NOTE | 2020-04-05 16:57 | Hospitalist Progress Note ---
Date of Service April 05, 2020 Assessment & Plan (1) Acute hyperglycemia: H/O DM II Presented with high blood sugar around 400 is due to receiving steroid injection in the right knee joint 1 day prior to admission Most recent HbA1C:8.2 on 03/03 Plan to resume Metformin upon discharge Continue Insulin therapy while hospitalized Per Glycemic pharmacy recs from 03/07 : Recommend Initiation of Lantus 19 units daily with Novolog 5 units with meals while at long-term. Right Knee osteoarthritis Knee X ray: No acute fracture or dislocation within the right knee. Severe tricompartmental osteoarthritis and multiple intra-articular loose bodies again noted. Chronic lateral subluxation of the patella. Very high risk for given comorbidities. Ortho on board Recommended conservative treatment at this time including bracing Continue weight-bear as tolerated right lower extremity as per ortho Continue Lidoderm patch Pain control Continue PT/OT May need follow-up with pain clinic as outpatient Plan to go to [place] for rehab next week (2) Acute dehydration: As above (3) GEGE (acute kidney injury): Likely secondary to dehydration Received IV fluids Monitor renal function Resolved (4) UTI (urinary tract infection): Urine Cx: Klebsiella pneumonia--pansensitive Completed IV ciprofloxacin course (5) Falls: Continue PT/OT Fall precaution Waiting placement week to [place] (6) Hypertension: Not on any BP med Stable Depression Continue home medications Right Heel Pain Pain control Continue Waffle Boot Constipation Possible related to narcotic added Dulcolax and miralax HIV disease Continue antiviral medications DVT prophylaxis Lovenox SQ CODE STATUS Full Code Disposition Case management working on placement Waiting for rehab placement next week Admission and Anticipated Discharge Date Admission Date: February 22, 2020 Subjective Pt was seen and examined , follow up chronic conditions Pt is sitting up in bed with no distress Reports chronic knee pain Denies any chest pain, palpitation, dizziness and SOB Review of Systems 2 Review of Systems: All systems reviewed & are unremarkable except as noted in HPI & below Constitutional: no fever and no chills Respiratory: no cough and no dyspnea Cardiovascular: no chest pain and no palpitations Gastrointestinal: no abdominal pain, no nausea and no vomiting Physical Exam Physical Exam: General- No acute distress Head- atraumatic Eyes- PERRL, EOMI ENT- oropharynx clear Neck- supple, no JVD Lungs- clear to auscultation Heart- regular rhythm; no murmur Abdomen- normal bowel sounds, soft, nontender Extremities- no calf tenderness, left AKA Neuro- alert, oriented x 3; PERRL, EOMI; no facial palsy; no dysarthria Skin- warm & dry Results & Data Results & Data ([facility]) Vital Signs (Past 12 Hours) Vital Signs Temp Pulse Resp BP Pulse Ox 04/05/20 15:28 37.0 C 75 17 153/80 H 96 04/05/20 07:15 36.5 C 76 16 126/76 96 (1) UTI (urinary tract infection) Hematuria presence: with hematuria Urinary tract infection type: acute cystitis Qualified Code(s): N30.01 - Acute cystitis with hematuria
[2020-04-05] MEDS: ADVANCED PROBIOTIC 1250 MG CAPSULE PO SCH (17:21)
[2020-04-05] MEDS: DESCOVY PO SCH (20:28)
[2020-04-05] MEDS: DOLUTEGRAVIR SODIUM 50 MG TAB PO SCH (20:29)
[2020-04-06] MEDS: oxyCODONE HCL IR 5 MG TAB (IMMEDIATE RELEASE) PO PRN ×2 (07:52→20:36)
[2020-04-06] MEDS: clonazePAM 0.5 MG TAB PO PRN ×2 (07:52→20:36)
[2020-04-06] MEDS: DOCUSATE SODIUM/SENNA 50/8.6MG TAB PO SCH ×2 (07:53→20:37)
[2020-04-06] MEDS: ACETAMINOPHEN 500 MG TAB PO SCH ×3 (07:54→20:36)
[2020-04-06] MEDS: fluvoxaMINE MALEATE 50 MG TAB PO SCH ×2 (07:54→20:37)
[2020-04-06] MEDS: busPIRone 7.5 MG TAB PO SCH ×2 (07:55→20:37)
[2020-04-06] MEDS: risperiDONE 0.5 MG TABLET PO SCH ×2 (07:55→20:36)
[2020-04-06] MEDS: hydrOXYzine HCl 25 MG TAB PO SCH ×3 (07:55→20:37)
[2020-04-06] MEDS: LIDOCAINE 5% 1 PATCH TD SCH (07:56)
[2020-04-06] MEDS: DICLOFENAC SOD 1% GEL 100 GM TUBE EXT SCH ×2 (07:56→20:39)
[2020-04-06] MEDS: ADVANCED PROBIOTIC 1250 MG CAPSULE PO SCH (07:58)
[2020-04-06] MEDS: ENOXAPARIN INJ 40 MG/0.4 ML SYR SQ SCH ×2 (07:59→20:38)
[2020-04-06] MEDS: INSULIN GLARGINE SOLOSTAR 100 UNITS/ML 3 ML PEN SC SCH (08:53)
[2020-04-06] MEDS: INSULIN ASPART 100 UNITS/ML 3 ML PEN SC SCH ×4 (08:54→21:36)
[2020-04-06] MEDS: DOLUTEGRAVIR SODIUM 50 MG TAB PO SCH (20:37)
[2020-04-06] MEDS: DESCOVY PO SCH (20:38)
--- NOTE | 2020-04-07 07:34 | Hospitalist Progress Note ---
Date of Service April 06, 2020 Assessment & Plan (1) Acute hyperglycemia: H/O DM II Presented with high blood sugar around 400 is due to receiving steroid injection in the right knee joint 1 day prior to admission Most recent HbA1C:8.2 on 03/03 Plan to resume Metformin upon discharge Continue Insulin therapy while hospitalized Per Glycemic pharmacy recs from 03/07 : Recommend Initiation of Lantus 19 units daily with Novolog 5 units with meals while at correction. Right Knee osteoarthritis Knee X ray: No acute fracture or dislocation within the right knee. Severe tricompartmental osteoarthritis and multiple intra-articular loose bodies again noted. Chronic lateral subluxation of the patella. Very high risk for given comorbidities. Ortho on board Recommended conservative treatment at this time including bracing Continue weight-bear as tolerated right lower extremity as per ortho Continue Lidoderm patch Pain control Continue PT/OT May need follow-up with pain clinic as outpatient Plan to go to [employer] for rehab next week (2) Acute dehydration: As above (3) GEGE (acute kidney injury): Likely secondary to dehydration Received IV fluids Monitor renal function Resolved (4) UTI (urinary tract infection): Urine Cx: Klebsiella pneumonia--pansensitive Completed IV ciprofloxacin course (5) Falls: Continue PT/OT Fall precaution Waiting placement week to [employer] (6) Hypertension: Not on any BP med Stable Depression Continue home medications Right Heel Pain Pain control Continue Waffle Boot Constipation Possible related to narcotic added Dulcolax and miralax HIV disease Continue antiviral medications DVT prophylaxis Lovenox SQ CODE STATUS Full Code Disposition Case management working on placement Waiting for rehab placement next week Admission and Anticipated Discharge Date Admission Date: February 22, 2020 Subjective Pt was seen and examined , follow up chronic conditions Pt is sitting up in bed with no distress Reports chronic knee pain Denies any chest pain, palpitation, dizziness and SOB Review of Systems 2 Review of Systems: All systems reviewed & are unremarkable except as noted in HPI & below Constitutional: no fever and no chills Respiratory: no cough and no dyspnea Cardiovascular: no chest pain and no palpitations Gastrointestinal: no abdominal pain, no nausea and no vomiting Physical Exam Physical Exam: General- No acute distress Head- atraumatic Eyes- PERRL, EOMI ENT- oropharynx clear Neck- supple, no JVD Lungs- clear to auscultation Heart- regular rhythm; no murmur Abdomen- normal bowel sounds, soft, nontender Extremities- no calf tenderness, left AKA Neuro- alert, oriented x 3; PERRL, EOMI; no facial palsy; no dysarthria Skin- warm & dry Results & Data Results & Data ([facility]) Vital Signs (Past 12 Hours) Vital Signs Temp Pulse Resp BP BP Pulse Ox 04/07/20 07:24 36.7 C 72 18 129/77 97 04/07/20 00:20 36.8 C 64 14 92/55 L 96 (1) UTI (urinary tract infection) Hematuria presence: with hematuria Urinary tract infection type: acute cystitis Qualified Code(s): N30.01 - Acute cystitis with hematuria
--- NOTE | 2020-04-07 07:36 | Hospitalist Progress Note ---
Date of Service April 07, 2020 Assessment & Plan (1) Acute hyperglycemia: H/O DM II Presented with high blood sugar around 400 is due to receiving steroid injection in the right knee joint 1 day prior to admission Most recent HbA1C:8.2 on 03/03 Plan to resume Metformin upon discharge Continue Insulin therapy while hospitalized Per Glycemic pharmacy recs from 03/07 : Recommend Initiation of Lantus 19 units daily with Novolog 5 units with meals [facility]. Right Knee osteoarthritis Knee X ray: No acute fracture or dislocation within the right knee. Severe tricompartmental osteoarthritis and multiple intra-articular loose bodies again noted. Chronic lateral subluxation of the patella. Very high risk for given comorbidities. Ortho on board Recommended conservative treatment at this time including bracing Continue weight-bear as tolerated right lower extremity as per ortho Continue Lidoderm patch Pain control Continue PT/OT May need follow-up with pain clinic as outpatient Plan to go to [place] for rehab next week (2) Acute dehydration: As above (3) GEGE (acute kidney injury): Likely secondary to dehydration Received IV fluids Monitor renal function Resolved (4) UTI (urinary tract infection): Urine Cx: Klebsiella pneumonia--pansensitive Completed IV ciprofloxacin course (5) Falls: Continue PT/OT Fall precaution Waiting placement week to [place] (6) Hypertension: Not on any BP med Stable Depression Continue home medications Right Heel Pain Pain control Continue Waffle Boot Constipation Possible related to narcotic added Dulcolax and miralax HIV disease Continue antiviral medications DVT prophylaxis Lovenox SQ CODE STATUS Full Code Disposition Case management working on placement Waiting for rehab placement next week Admission and Anticipated Discharge Date Admission Date: February 22, 2020 Subjective Pt was seen and examined , follow up chronic conditions Pt is sitting up in bed with no distress Reports chronic knee pain Denies any chest pain, palpitation, dizziness and SOB Review of Systems 2 Review of Systems: All systems reviewed & are unremarkable except as noted in HPI & below Constitutional: no fever and no chills Respiratory: no cough and no dyspnea Cardiovascular: no chest pain and no palpitations Gastrointestinal: no abdominal pain, no nausea and no vomiting Genitourinary: no dysuria Physical Exam Physical Exam: General- No acute distress Head- atraumatic Eyes- PERRL, EOMI ENT- oropharynx clear Neck- supple, no JVD Lungs- clear to auscultation Heart- regular rhythm; no murmur Abdomen- normal bowel sounds, soft, nontender Extremities- no calf tenderness, left AKA Neuro- alert, oriented x 3; PERRL, EOMI; no facial palsy; no dysarthria Skin- warm & dry Results & Data Results & Data ([facility]) Vital Signs (Past 12 Hours) Vital Signs Temp Pulse Resp BP BP Pulse Ox 04/07/20 07:24 36.7 C 72 18 129/77 97 04/07/20 00:20 36.8 C 64 14 92/55 L 96 Medications Administered Current Inpatient Medications Acetaminophen (Acetaminophen 500 Mg Tab) 1,000 mg PO TID [facility] Stop: 04/09/20 13:59 Last Admin: 04/06/20 20:36 Dose: 1,000 mg Documented by: Bisacodyl (Bisacodyl 5 Mg Tabec) 5 mg PO DAILY PRN PRN Reason: Constipation Stop: 05/01/20 11:26 Buspirone HCl (Buspirone 7.5 Mg Tab) 7.5 mg PO BID [facility] Stop: 04/22/20 22:44 Last Admin: 04/06/20 20:37 Dose: 7.5 mg Documented by: Clonazepam (Clonazepam 0.5 Mg Tab) 0.5 mg PO BID PRN PRN Reason: Anxiety Stop: 04/23/20 07:53 Last Admin: 04/06/20 20:36 Dose: 0.5 mg Documented by: Dextrose (Dextrose 50% 50 Ml Syringe) 25 - 50 ml IV UD PRN; Protocol PRN Reason: Hypoglycemia Protocol Stop: 04/22/20 22:59 Diclofenac Sodium (Diclofenac Sod 1% Gel 100 Gm Tube) 4 gm EXT BID [facility] Stop: 04/09/20 08:59 Last Admin: 04/06/20 20:39 Dose: 4 gm Documented by: Dolutegravir Sodium (Dolutegravir Sodium 50 Mg Tab) 50 mg PO HS [facility] Stop: 04/22/20 22:44 Last Admin: 04/06/20 20:37 Dose: 50 mg Documented by: Enoxaparin Sodium (Enoxaparin Inj 40 Mg/0.4 Ml Syr) 40 mg SQ Q12 [facility] Stop: 04/22/20 22:44 Last Admin: 04/06/20 20:38 Dose: 40 mg Documented by: Fluvoxamine Maleate (Fluvoxamine Maleate 50 Mg Tab) 100 mg PO BID [facility] Stop: 04/22/20 22:44 Last Admin: 04/06/20 20:37 Dose: 100 mg Documented by: Glucagon (Glucagon For Inj 1 Mg Vial) 1 mg SQ UD PRN; Protocol PRN Reason: Hypoglycemia Protocol Stop: 04/22/20 22:59 Glucose (Glucose 40% Gel 15 Gm Tube) 15 - 30 gm PO UD PRN; Protocol PRN Reason: Hypoglycemia Protocol Stop: 04/22/20 22:59 Glucose (Glucose 10 Tabs/Tube) 4 - 8 tabs PO UD PRN; Protocol PRN Reason: Hypoglycemia Protocol Stop: 04/22/20 22:59 Hydroxyzine HCl (Hydroxyzine Hcl 25 Mg Tab) 50 mg PO TID PRN PRN Reason: Anxiety/Agitation Stop: 04/19/20 14:51 Last Admin: 03/23/20 13:15 Dose: 50 mg Documented by: Hydroxyzine HCl (Hydroxyzine Hcl 25 Mg Tab) 50 mg PO TID [facility] Stop: 04/23/20 08:59 Last Admin: 04/06/20 20:37 Dose: 50 mg Documented by: Insulin Aspart (Insulin Aspart 100 Units/Ml 3 Ml Pen) 0 units SC ACHS [facility] Stop: 04/23/20 07:29 Last Admin: 04/06/20 21:36 Dose: Not Given Documented by: Insulin Glargine (Insulin Glargine Solostar 100 Units/Ml 3 Ml Pen) 15 units SC QAM [facility] Stop: 04/07/20 08:59 Last Admin: 04/06/20 08:53 Dose: 15 units Documented by: Lactobacillus Acidoph/Casei/Rhamnos (Advanced Probiotic 1250 Mg Capsule) 2 cap PO DAILY [facility] Stop: 05/05/20 16:29 Last Admin: 04/06/20 07:58 Dose: Not Given Documented by: Lidocaine (Lidocaine 5% 1 Patch) 1 patch TD QAM [facility] Stop: 04/19/20 08:59 Last Admin: 04/06/20 07:56 Dose: 1 patch Documented by: Miconazole Nitrate (Miconazole Nitrate Powder 43 Gm) 1 appln EXT PRN PRN PRN Reason: AFFECTED SKIN Stop: 04/11/20 12:49 Last Admin: 03/30/20 21:45 Dose: 1 appln Documented by: Miscellaneous (Remove Lidoderm Patch) 1 ea N/A DAILY@2100 [facility] Stop: 04/19/20 20:59 Last Admin: 04/06/20 20:39 Dose: 1 ea Documented by: Miscellaneous (Carbohydrates For Hypoglycemia ) 15 - 30 gm PO UD PRN PRN Reason: Hypoglycemia Treatment Stop: 04/22/20 22:59 Descovy: Non- Formulary Patient's Own Med 1 ea PO HS [facility]; Protocol Stop: 05/01/20 20:59 Last Admin: 04/06/20 20:38 Dose: 1 tabs Documented by: Oxycodone HCl (Oxycodone Hcl Ir 5 Mg Tab (Immediate Release)) 5 mg PO Q8 PRN PRN Reason: Severe Pain Stop: 04/07/20 08:45 Last Admin: 04/06/20 20:36 Dose: 5 mg Documented by: Polyethylene Glycol (Polyethylene (Miralax) 17 Gm Pack) 17 gm PO DAILY PRN PRN Reason: Constipation Stop: 05/01/20 11:26 Last Admin: 04/01/20 12:18 Dose: 17 gm Documented by: Risperidone (Risperidone 0.5 Mg Tablet) 0.5 mg PO BID [facility] Stop: 04/22/20 22:44 Last Admin: 04/06/20 20:36 Dose: 0.5 mg Documented by: Senna/Docusate Sodium (Docusate Sodium/Senna 50/8.6mg Tab) 1 tab PO BID [facility] Stop: 04/09/20 08:59 Last Admin: 04/06/20 20:37 Dose: Not Given Documented by: (1) UTI (urinary tract infection) Hematuria presence: with hematuria Urinary tract infection type: acute cystitis Qualified Code(s): N30.01 - Acute cystitis with hematuria
[2020-04-07] MEDS: oxyCODONE HCL IR 5 MG TAB (IMMEDIATE RELEASE) PO PRN ×2 (08:07→20:45)
[2020-04-07] MEDS: clonazePAM 0.5 MG TAB PO PRN ×2 (08:07→20:45)
[2020-04-07] MEDS: fluvoxaMINE MALEATE 50 MG TAB PO SCH ×2 (08:08→20:47)
[2020-04-07] MEDS: LIDOCAINE 5% 1 PATCH TD SCH (08:08)
[2020-04-07] MEDS: busPIRone 7.5 MG TAB PO SCH ×2 (08:08→20:47)
[2020-04-07] MEDS: DICLOFENAC SOD 1% GEL 100 GM TUBE EXT SCH ×2 (08:08→20:47)
[2020-04-07] MEDS: ENOXAPARIN INJ 40 MG/0.4 ML SYR SQ SCH ×2 (08:08→20:47)
[2020-04-07] MEDS: DOCUSATE SODIUM/SENNA 50/8.6MG TAB PO SCH ×3 (08:09→20:46)
[2020-04-07] MEDS: ADVANCED PROBIOTIC 1250 MG CAPSULE PO SCH (08:09)
[2020-04-07] MEDS: hydrOXYzine HCl 25 MG TAB PO SCH ×3 (08:09→20:46)
[2020-04-07] MEDS: risperiDONE 0.5 MG TABLET PO SCH ×2 (08:09→20:46)
[2020-04-07] MEDS: ACETAMINOPHEN 500 MG TAB PO SCH ×3 (08:09→20:46)
[2020-04-07] MEDS ORDERED: Nursing to Pharmacy Communication SCH (09:00)
[2020-04-07] MEDS: INSULIN GLARGINE SOLOSTAR 100 UNITS/ML 3 ML PEN SC SCH (09:03)
[2020-04-07] MEDS: INSULIN ASPART 100 UNITS/ML 3 ML PEN SC SCH ×4 (09:04→20:48)
[2020-04-07] MEDS: DOLUTEGRAVIR SODIUM 50 MG TAB PO SCH (20:47)
[2020-04-07] MEDS: DESCOVY PO SCH (20:48)
[2020-04-08] MEDS: clonazePAM 0.5 MG TAB PO PRN ×2 (08:01→20:10)
[2020-04-08] MEDS: oxyCODONE HCL IR 5 MG TAB (IMMEDIATE RELEASE) PO PRN ×2 (08:01→20:11)
[2020-04-08] MEDS: LIDOCAINE 5% 1 PATCH TD SCH (08:02)
[2020-04-08] MEDS: DICLOFENAC SOD 1% GEL 100 GM TUBE EXT SCH ×2 (08:02→20:18)
[2020-04-08] MEDS: risperiDONE 0.5 MG TABLET PO SCH ×2 (08:03→20:11)
[2020-04-08] MEDS: ACETAMINOPHEN 500 MG TAB PO SCH ×3 (08:03→20:10)
[2020-04-08] MEDS: hydrOXYzine HCl 25 MG TAB PO SCH ×3 (08:03→20:10)
[2020-04-08] MEDS: DOCUSATE SODIUM/SENNA 50/8.6MG TAB PO SCH ×2 (08:03→20:17)
[2020-04-08] MEDS: fluvoxaMINE MALEATE 50 MG TAB PO SCH ×2 (08:03→20:11)
[2020-04-08] MEDS: busPIRone 7.5 MG TAB PO SCH ×2 (08:03→20:11)
[2020-04-08] MEDS: ENOXAPARIN INJ 40 MG/0.4 ML SYR SQ SCH ×2 (08:05→20:16)
[2020-04-08] MEDS: ADVANCED PROBIOTIC 1250 MG CAPSULE PO SCH (08:05)
[2020-04-08] MEDS: INSULIN GLARGINE SOLOSTAR 100 UNITS/ML 3 ML PEN SC SCH (08:49)
[2020-04-08] MEDS: INSULIN ASPART 100 UNITS/ML 3 ML PEN SC SCH ×4 (08:50→20:53)
--- NOTE | 2020-04-08 15:38 | Hospitalist Progress Note ---
Date of Service April 08, 2020 Assessment & Plan (1) Acute hyperglycemia: H/O DM II Presented with high blood sugar around 400 is due to receiving steroid injection in the right knee joint 1 day prior to admission Most recent HbA1C:8.2 on 03/03 Plan to resume Metformin upon discharge Continue Insulin therapy while hospitalized Per Glycemic pharmacy recs from 03/07 : Recommend Initiation of Lantus 19 units daily with Novolog 5 units with meals while at [facility]. Right Knee osteoarthritis Knee X ray: No acute fracture or dislocation within the right knee. Severe tricompartmental osteoarthritis and multiple intra-articular loose bodies again noted. Chronic lateral subluxation of the patella. Very high risk for given comorbidities. Ortho on board Recommended conservative treatment at this time including bracing Continue weight - bear as tolerated right lower extremity as per ortho Continue Lidoderm patch Pain control Continue PT/OT May need follow-up with pain clinic as outpatient Plan to go to [place] for rehab next week (2) Acute dehydration: As above (3) GEGE (acute kidney injury): Likely secondary to dehydration Received IV fluids Monitor renal function Resolved (4) UTI (urinary tract infection): Urine Cx: Klebsiella pneumonia--pansensitive Completed IV ciprofloxacin course (5) Falls: Continue PT/OT Fall precaution Waiting placement week to [place] (6) Hypertension: Not on any BP med Stable Depression Continue home medications Right Heel Pain Pain control Continue Waffle Boot Constipation Possible related to narcotic added Dulcolax and miralax HIV disease Continue antiviral medications DVT prophylaxis Lovenox SQ CODE STATUS Full Code Disposition Case management working on placement Waiting for rehab placement next week Admission and Anticipated Discharge Date Admission Date: February 22, 2020 Subjective Pt was seen and examined , follow up chronic conditions Pt is sitting up in bed with no distress Reports chronic knee pain Denies any chest pain, palpitation, dizziness and SOB Previously reported frequent lose stools and c. diff was ordered, now reporting no BM and asking for stool softeners. Review of Systems Review of Systems: All systems reviewed & are unremarkable except as noted in HPI & below Constitutional: no fever and no chills Respiratory: no cough and no dyspnea Cardiovascular: no chest pain and no palpitations Gastrointestinal: no abdominal pain, no nausea and no vomiting Genitourinary: no dysuria Physical Exam Physical Exam: General- No acute distress Head- atraumatic Eyes- PERRL, EOMI ENT- oropharynx clear Neck- supple, no JVD Lungs- clear to auscultation Heart- regular rhythm; no murmur Abdomen- normal bowel sounds, soft, nontender Extremities- no calf tenderness, left AKA Neuro- alert, oriented x 3; PERRL, EOMI; no facial palsy; no dysarthria Skin- warm & dry Results & Data Results & Data ([facility]) Vital Signs (Past 12 Hours) Vital Signs Temp Pulse Resp BP Pulse Ox 04/08/20 07:28 36.6 C 71 18 129/79 98 (1) UTI (urinary tract infection) Hematuria presence: with hematuria Urinary tract infection type: acute cystitis Qualified Code(s): N30.01 - Acute cystitis with hematuria
[2020-04-08] MEDS: DOLUTEGRAVIR SODIUM 50 MG TAB PO SCH (20:12)
[2020-04-08] MEDS: DESCOVY PO SCH (20:12)
[2020-04-09] MEDS ORDERED: ONDANSETRON INJ 2 MG/ML 2 ML VIAL IV STA (06:48)
[2020-04-09] MEDS: oxyCODONE HCL IR 5 MG TAB (IMMEDIATE RELEASE) PO PRN ×2 (07:21→19:59)
[2020-04-09] MEDS: clonazePAM 0.5 MG TAB PO PRN ×2 (07:24→19:59)
[2020-04-09] MEDS: LIDOCAINE 5% 1 PATCH TD SCH (07:26)
[2020-04-09] MEDS: fluvoxaMINE MALEATE 50 MG TAB PO SCH ×2 (07:27→20:01)
[2020-04-09] MEDS: busPIRone 7.5 MG TAB PO SCH ×2 (07:27→20:02)
[2020-04-09] MEDS: risperiDONE 0.5 MG TABLET PO SCH ×2 (07:27→20:02)
[2020-04-09] MEDS: ADVANCED PROBIOTIC 1250 MG CAPSULE PO SCH (07:28)
[2020-04-09] MEDS: ACETAMINOPHEN 500 MG TAB PO SCH ×2 (07:28→13:07)
[2020-04-09] MEDS: ENOXAPARIN INJ 40 MG/0.4 ML SYR SQ SCH ×2 (07:29→20:00)
[2020-04-09] MEDS: hydrOXYzine HCl 25 MG TAB PO SCH ×3 (07:30→20:02)
--- NOTE | 2020-04-09 08:13 | XRay Report ---
RIGHT KNEE 3 VIEWS CLINICAL HISTORY: Fall. Right knee pain. FINDINGS: AP, crosstable lateral, and sunrise portable views of the right knee are compared to study dated 03/17/2020. The skeletal structures are osteopenic. No fracture is seen. There is advanced tricom partmental degenerative joint space narrowing with near complete loss of the joint spaces. There are large marginal osteophytes, patellar enthesophytes, and significant bony overgrowth around the knee. There are numerous calcified joint bodies. A small joint effusion is noted. Soft tissue edema is pres ent around the knee. There is advanced atherosclerotic calcification of the popliteal artery. The pat timothy is laterally subluxed. IMPRESSION: 1. Soft tissue swelling with no fracture identified. 2. Osteopenia with advanced degenerative change, small joint effusion, and large calcified joint bodi es as above. 3. Lateral patellar subluxation is similar to previous. Electronically signed by: Lincoln Caceres M.D. 04/09/2020 8:11 AM
[2020-04-09] MEDS: INSULIN ASPART 100 UNITS/ML 3 ML PEN SC SCH ×4 (08:47→21:06)
[2020-04-09] MEDS: INSULIN GLARGINE SOLOSTAR 100 UNITS/ML 3 ML PEN SC SCH (08:50)
--- NOTE | 2020-04-09 09:29 | Hospitalist Progress Note ---
Date of Service April 09, 2020 Assessment & Plan (1) Acute hyperglycemia: H/O DM II Presented with high blood sugar around 400 is due to receiving steroid injection in the right knee joint 1 day prior to admission Most recent HbA1C:8.2 on 03/03 Plan to resume Metformin upon discharge Continue Insulin therapy while hospitalized Per Glycemic pharmacy recs from 03/07/2021 : Recommend Initiation of Lantus 19 units daily with Novolog 5 units with meals [facility] at [facility]. Right Knee osteoarthritis Knee X ray: No acute fracture or dislocation within the right knee. Severe tricompartmental osteoarthritis and multiple intra-articular loose bodies again noted. Chronic lateral subluxation of the patella. Very high risk for given comorbidities. Ortho on board Recommended conservative treatment at this time including bracing Continue weight - bear as tolerated right lower extremity as per ortho Continue Lidoderm patch Pain control Continue PT/OT May need follow-up with pain clinic as outpatient Plan to go to [place] for rehab next week (2) Acute dehydration: As above (3) GEGE (acute kidney injury): Likely secondary to dehydration Received IV fluids Monitor renal function Resolved (4) UTI (urinary tract infection): Urine Cx: Klebsiella pneumonia--pansensitive Completed IV ciprofloxacin course (5) Falls: Continue PT/OT Fall precaution Waiting placement week to [place] (6) Hypertension: Not on any BP med Stable Depression Continue home medications Right Heel Pain Pain control Continue Waffle Boot Constipation Possible related to narcotic added Dulcolax and miralax HIV disease Continue antiviral medications DVT prophylaxis Lovenox SQ CODE STATUS Full Code Disposition Case management working on placement Waiting for rehab placement next week Admission and Anticipated Discharge Date Admission Date: February 22, 2020 Subjective Pt was seen and examined , follow up of chronic conditions Pt is sitting up in bed, comfortable and in no distress Reports chronic knee pain Denies any chest pain, palpitation, dizziness and SOB Early this AM, she fell and hit her knee, as she was pivoting out of bed. Xray obtained, no changes from previous, no fractures. Review of Systems Review of Systems: All systems reviewed & are unremarkable except as noted in HPI & below Constitutional: no fever and no chills Respiratory: no cough and no dyspnea Cardiovascular: no chest pain and no palpitations Gastrointestinal: no abdominal pain, no nausea and no vomiting Genitourinary: no dysuria Physical Exam Physical Exam: General- No acute distress Head- atraumatic Eyes- PERRL, EOMI ENT- oropharynx clear Neck- supple, no JVD Lungs- clear to auscultation Heart- regular rhythm; no murmur Abdomen- normal bowel sounds, soft, nontender Extremities- no calf tenderness, left AKA Neuro- alert, oriented x 3; PERRL, EOMI; no facial palsy; no dysarthria Skin- warm & dry Results & Data Results & Data ([facility]) Vital Signs (Past 12 Hours) Vital Signs Temp Pulse Resp BP BP Pulse Ox 04/09/20 07:41 36.7 C 81 16 144/83 H 98 04/09/20 05:12 36.7 C 108 H 14 141/95 H 100 04/08/20 23:53 36.9 C 64 16 92/55 L 98 Medications Administered Current Inpatient Medications Acetaminophen (Acetaminophen 500 Mg Tab) 1,000 mg PO TID [facility] Stop: 04/09/20 13:59 Last Admin: 04/09/20 07:28 Dose: 1,000 mg Documented by: Bisacodyl (Bisacodyl 5 Mg Tabec) 5 mg PO DAILY PRN PRN Reason: Constipation Stop: 05/01/20 11:26 Buspirone HCl (Buspirone 7.5 Mg Tab) 7.5 mg PO BID [facility] Stop: 04/22/20 22:44 Last Admin: 04/09/20 07:27 Dose: 7.5 mg Documented by: Clonazepam (Clonazepam 0.5 Mg Tab) 0.5 mg PO BID PRN PRN Reason: Anxiety Stop: 04/23/20 07:53 Last Admin: 04/09/20 07:24 Dose: 0.5 mg Documented by: Dextrose (Dextrose 50% 50 Ml Syringe) 25 - 50 ml IV UD PRN; Protocol PRN Reason: Hypoglycemia Protocol Stop: 04/22/20 22:59 Dolutegravir Sodium (Dolutegravir Sodium 50 Mg Tab) 50 mg PO HS [facility] Stop: 04/22/20 22:44 Last Admin: 04/08/20 20:12 Dose: 50 mg Documented by: Enoxaparin Sodium (Enoxaparin Inj 40 Mg/0.4 Ml Syr) 40 mg SQ Q12 [facility] Stop: 04/22/20 22:44 Last Admin: 04/09/20 07:29 Dose: 40 mg Documented by: Fluvoxamine Maleate (Fluvoxamine Maleate 50 Mg Tab) 100 mg PO BID [facility] Stop: 04/22/20 22:44 Last Admin: 04/09/20 07:27 Dose: 100 mg Documented by: Glucagon (Glucagon For Inj 1 Mg Vial) 1 mg SQ UD PRN; Protocol PRN Reason: Hypoglycemia Protocol Stop: 04/22/20 22:59 Glucose (Glucose 40% Gel 15 Gm Tube) 15 - 30 gm PO UD PRN; Protocol PRN Reason: Hypoglycemia Protocol Stop: 04/22/20 22:59 Glucose (Glucose 10 Tabs/Tube) 4 - 8 tabs PO UD PRN; Protocol PRN Reason: Hypoglycemia Protocol Stop: 04/22/20 22:59 Hydroxyzine HCl (Hydroxyzine Hcl 25 Mg Tab) 50 mg PO TID PRN PRN Reason: Anxiety/Agitation Stop: 04/19/20 14:51 Last Admin: 03/23/20 13:15 Dose: 50 mg Documented by: Hydroxyzine HCl (Hydroxyzine Hcl 25 Mg Tab) 50 mg PO TID [facility] Stop: 04/23/20 08:59 Last Admin: 04/09/20 07:30 Dose: 50 mg Documented by: Insulin Aspart (Insulin Aspart 100 Units/Ml 3 Ml Pen) 0 units SC ACHS [facility] Stop: 04/23/20 07:29 Last Admin: 04/09/20 08:47 Dose: 3 units Documented by: Insulin Glargine (Insulin Glargine Solostar 100 Units/Ml 3 Ml Pen) 15 units SC QAM [facility] Stop: 05/12/20 08:59 Last Admin: 04/09/20 08:50 Dose: 15 units Documented by: Lactobacillus Acidoph/Casei/Rhamnos (Advanced Probiotic 1250 Mg Capsule) 2 cap PO DAILY [facility] Stop: 05/05/20 16:29 Last Admin: 04/09/20 07:28 Dose: 2 cap Documented by: Lidocaine (Lidocaine 5% 1 Patch) 1 patch TD QAM [facility] Stop: 04/19/20 08:59 Last Admin: 04/09/20 07:26 Dose: 1 patch Documented by: Miconazole Nitrate (Miconazole Nitrate Powder 43 Gm) 1 appln EXT PRN PRN PRN Reason: AFFECTED SKIN Stop: 04/11/20 12:49 Last Admin: 03/30/20 21:45 Dose: 1 appln Documented by: Dlaneous (Remove Lidoderm Patch) 1 ea N/A DAILY@2100 [facility] Stop: 04/19/20 20:59 Last Admin: 04/08/20 20:18 Dose: 1 ea Documented by: Xochitl (Carbohydrates For Hypoglycemia ) 15 - 30 gm PO UD PRN PRN Reason: Hypoglycemia Treatment Stop: 04/22/20 22:59 Descovy: Non- Formulary Patient's Own Med 1 ea PO HS [facility]; Protocol Stop: 05/01/20 20:59 Last Admin: 04/08/20 20:12 Dose: 1 tabs Documented by: Oxycodone HCl (Oxycodone Hcl Ir 5 Mg Tab (Immediate Release)) 5 mg PO Q8 PRN PRN Reason: Severe Pain Stop: 04/21/20 08:59 Last Admin: 04/09/20 07:21 Dose: 5 mg Documented by: Polyethylene Glycol (Polyethylene (Miralax) 17 Gm Pack) 17 gm PO DAILY PRN PRN Reason: Constipation Stop: 05/01/20 11:26 Last Admin: 04/01/20 12:18 Dose: 17 gm Documented by: Risperidone (Risperidone 0.5 Mg Tablet) 0.5 mg PO BID [facility] Stop: 04/22/20 22:44 Last Admin: 04/09/20 07:27 Dose: 0.5 mg Documented by: (1) UTI (urinary tract infection) Hematuria presence: with hematuria Urinary tract infection type: acute cystitis Qualified Code(s): N30.01 - Acute cystitis with hematuria
[2020-04-09] MEDS: DOLUTEGRAVIR SODIUM 50 MG TAB PO SCH (20:02)
[2020-04-09] MEDS: DESCOVY PO SCH (20:03)
[2020-04-10] MEDS: clonazePAM 0.5 MG TAB PO PRN ×2 (07:32→20:18)
[2020-04-10] MEDS: oxyCODONE HCL IR 5 MG TAB (IMMEDIATE RELEASE) PO PRN ×2 (07:32→20:17)
[2020-04-10] MEDS: ENOXAPARIN INJ 40 MG/0.4 ML SYR SQ SCH ×2 (07:33→20:18)
[2020-04-10] MEDS: hydrOXYzine HCl 25 MG TAB PO SCH ×3 (07:35→20:19)
[2020-04-10] MEDS: risperiDONE 0.5 MG TABLET PO SCH ×2 (07:35→20:19)
[2020-04-10] MEDS: fluvoxaMINE MALEATE 50 MG TAB PO SCH ×2 (07:35→20:18)
[2020-04-10] MEDS: busPIRone 7.5 MG TAB PO SCH ×2 (07:35→20:18)
[2020-04-10] MEDS: LIDOCAINE 5% 1 PATCH TD SCH (07:36)
[2020-04-10] MEDS: ADVANCED PROBIOTIC 1250 MG CAPSULE PO SCH (07:37)
[2020-04-10] MEDS: INSULIN ASPART 100 UNITS/ML 3 ML PEN SC SCH ×4 (09:10→21:50)
[2020-04-10] MEDS: INSULIN GLARGINE SOLOSTAR 100 UNITS/ML 3 ML PEN SC SCH (09:11)
--- NOTE | 2020-04-10 18:54 | Hospitalist Progress Note ---
Date of Service April 10, 2020 Assessment & Plan (1) Acute hyperglycemia: H/O DM II Presented with high blood sugar around 400 is due to receiving steroid injection in the right knee joint 1 day prior to admission Most recent HbA1C:8.2 on 03/03 Plan to resume Metformin upon discharge Continue Insulin therapy while hospitalized Per Glycemic pharmacy recs from 03/07/2021 : Recommend Initiation of Lantus 19 units daily with Novolog 5 units with meals while at [facility]. Right Knee osteoarthritis Knee X ray: No acute fracture or dislocation within the right knee. Severe tricompartmental osteoarthritis and multiple intra-articular loose bodies again noted. Chronic lateral subluxation of the patella. Very high risk for given comorbidities. Ortho on board Recommended conservative treatment at this time including bracing Continue weight - bear as tolerated right lower extremity as per ortho Continue Lidoderm patch Pain control Continue PT/OT May need follow-up with pain clinic as outpatient Plan to go to [place] for rehab next week (2) Acute dehydration: (3) GEGE (acute kidney injury): Likely secondary to dehydration Received IV fluids Monitor renal function Resolved (4) UTI (urinary tract infection): Urine Cx: Klebsiella pneumonia--pansensitive Completed IV ciprofloxacin course (5) Falls: had an episode of fall on 04/09 while in the hospital Continue PT/OT Fall precaution Waiting placement week to [place] (6) Hypertension: Not on any BP med Stable Depression Continue home medications Right Heel Pain Pain control Continue Waffle Boot Constipation Possible related to narcotic added Dulcolax and miralax HIV disease Continue antiviral medications DVT prophylaxis Lovenox SQ CODE STATUS Full Code Disposition Case management working on placement Waiting for rehab placement next week Admission and Anticipated Discharge Date Admission Date: February 22, 2020 Subjective Pt was seen and examined Sitting in bed with no distress Pt said that she felt on her knee yesterday She said that she had xray done yesterday for her knee that was negative for fracture Denies any chest pain, palpitation, dizziness and SOB Physical Exam Physical Exam: General- No acute distress Head- atraumatic Eyes- PERRL, EOMI, ENT- oropharynx clear Neck- supple, no JVD Lungs- clear to auscultation Heart- regular rhythm; no murmur Abdomen- normal bowel sounds, soft, nontender Extremities- no calf tenderness, left AKA Neuro- alert, oriented x 3; PERRL, EOMI; no facial palsy; no dysarthria Skin- warm & dry Results & Data Results & Data ([facility]) Vital Signs (Past 12 Hours) Vital Signs Temp Pulse Resp BP Pulse Ox 04/10/20 15:37 36.8 C 68 20 135/83 96 04/10/20 07:21 36.8 C 78 16 119/73 97 (1) UTI (urinary tract infection) Hematuria presence: with hematuria Urinary tract infection type: acute cystitis Qualified Code(s): N30.01 - Acute cystitis with hematuria
[2020-04-10] MEDS: DESCOVY PO SCH (20:18)
[2020-04-10] MEDS: DOLUTEGRAVIR SODIUM 50 MG TAB PO SCH (20:20)
[2020-04-11] MEDS: busPIRone 7.5 MG TAB PO SCH ×2 (07:51→20:43)
[2020-04-11] MEDS: LIDOCAINE 5% 1 PATCH TD SCH (07:52)
[2020-04-11] MEDS: fluvoxaMINE MALEATE 50 MG TAB PO SCH ×2 (07:53→20:42)
[2020-04-11] MEDS: ENOXAPARIN INJ 40 MG/0.4 ML SYR SQ SCH ×2 (07:53→20:43)
[2020-04-11] MEDS: ADVANCED PROBIOTIC 1250 MG CAPSULE PO SCH (07:54)
[2020-04-11] MEDS: hydrOXYzine HCl 25 MG TAB PO SCH ×3 (07:55→20:42)
[2020-04-11] MEDS: risperiDONE 0.5 MG TABLET PO SCH ×2 (07:55→20:41)
[2020-04-11] MEDS: clonazePAM 0.5 MG TAB PO PRN ×2 (07:56→20:41)
[2020-04-11] MEDS: oxyCODONE HCL IR 5 MG TAB (IMMEDIATE RELEASE) PO PRN ×2 (07:57→20:41)
[2020-04-11] MEDS: INSULIN ASPART 100 UNITS/ML 3 ML PEN SC SCH ×4 (08:22→20:43)
[2020-04-11] MEDS: INSULIN GLARGINE SOLOSTAR 100 UNITS/ML 3 ML PEN SC SCH (08:24)
--- NOTE | 2020-04-11 15:17 | Hospitalist Progress Note ---
Date of Service April 11, 2020 Assessment & Plan (1) Acute hyperglycemia: H/O DM II Presented with high blood sugar around 400 is due to receiving steroid injection in the right knee joint 1 day prior to admission Most recent HbA1C:8.2 on 03/03 Plan to resume Metformin upon discharge Continue Insulin therapy while hospitalized Per Glycemic pharmacy recs from 03/07/2021 : Recommend Initiation of Lantus 19 units daily with Novolog 5 units with meals while at [facility]. Right Knee osteoarthritis Knee X ray: No acute fracture or dislocation within the right knee. Severe tricompartmental osteoarthritis and multiple intra-articular loose bodies again noted. Chronic lateral subluxation of the patella. Very high risk for given comorbidities. Ortho on board Recommended conservative treatment at this time including bracing Continue weight - bear as tolerated right lower extremity as per ortho Continue Lidoderm patch Pain control Continue PT/OT May need follow-up with pain clinic as outpatient Plan to go to [place] for rehab next week (2) Acute dehydration: (3) GEGE (acute kidney injury): Likely secondary to dehydration Received IV fluids Monitor renal function Resolved (4) UTI (urinary tract infection): Urine Cx: Klebsiella pneumonia--pansensitive Completed IV ciprofloxacin course (5) Falls: had an episode of fall on 04/09 while in the hospital Continue PT/OT Fall precaution Waiting placement week to [place] (6) Hypertension: Not on any BP med Stable Depression Continue home medications Right Heel Pain Pain control Continue Waffle Boot Constipation Possible related to narcotic added Dulcolax and miralax HIV disease Continue antiviral medications DVT prophylaxis Lovenox SQ CODE STATUS Full Code Disposition Case management working on placement Waiting for rehab placement next week Admission and Anticipated Discharge Date Admission Date: February 22, 2020 Subjective Pt was seen and examined Lying in bed with no distress watching TV She said that she feels ok Denies any chest pain, palpitation, dizziness and SOB Physical Exam Physical Exam: General- No acute distress Head- atraumatic Eyes- PERRL, EOMI, ENT- oropharynx clear Neck- supple, no JVD Lungs- clear to auscultation Heart- regular rhythm; no murmur Abdomen- normal bowel sounds, soft, nontender Extremities- no calf tenderness, left AKA Neuro- alert, oriented x 3; PERRL, EOMI; no facial palsy; no dysarthria Skin- warm & dry Results & Data Results & Data ([facility]) Vital Signs (Past 12 Hours) Vital Signs Temp Pulse Resp BP Pulse Ox 04/11/20 07:13 36.8 C 68 16 124/79 97 (1) UTI (urinary tract infection) Hematuria presence: with hematuria Urinary tract infection type: acute cystitis Qualified Code(s): N30.01 - Acute cystitis with hematuria
[2020-04-11] MEDS: ACETAMINOPHEN 325 MG TAB PO PRN (17:13)
[2020-04-11] MEDS: DOLUTEGRAVIR SODIUM 50 MG TAB PO SCH (20:41)
[2020-04-11] MEDS: DESCOVY PO SCH (20:41)
[2020-04-11] MEDS: DICLOFENAC SOD 1% GEL 100 GM TUBE EXT SCH (20:50)
[2020-04-12] MEDS: clonazePAM 0.5 MG TAB PO PRN ×2 (07:53→20:37)
[2020-04-12] MEDS: oxyCODONE HCL IR 5 MG TAB (IMMEDIATE RELEASE) PO PRN ×2 (07:53→20:36)
[2020-04-12] MEDS: INSULIN ASPART 100 UNITS/ML 3 ML PEN SC SCH ×4 (08:27→21:21)
[2020-04-12] MEDS: busPIRone 7.5 MG TAB PO SCH ×2 (08:30→20:39)
[2020-04-12] MEDS: INSULIN GLARGINE SOLOSTAR 100 UNITS/ML 3 ML PEN SC SCH (08:31)
[2020-04-12] MEDS: LIDOCAINE 5% 1 PATCH TD SCH (08:32)
[2020-04-12] MEDS: fluvoxaMINE MALEATE 50 MG TAB PO SCH ×2 (08:33→20:38)
[2020-04-12] MEDS: ENOXAPARIN INJ 40 MG/0.4 ML SYR SQ SCH ×2 (08:33→20:38)
[2020-04-12] MEDS: risperiDONE 0.5 MG TABLET PO SCH ×2 (08:34→20:38)
[2020-04-12] MEDS: ADVANCED PROBIOTIC 1250 MG CAPSULE PO SCH (08:34)
[2020-04-12] MEDS: DICLOFENAC SOD 1% GEL 100 GM TUBE EXT SCH ×2 (08:35→20:37)
[2020-04-12] MEDS: hydrOXYzine HCl 25 MG TAB PO SCH ×3 (08:35→20:38)
[2020-04-12] MEDS: ACETAMINOPHEN 325 MG TAB PO PRN (13:26)
--- NOTE | 2020-04-12 19:21 | Hospitalist Progress Note ---
Date of Service April 12, 2020 Assessment & Plan (1) Acute hyperglycemia: H/O DM II Presented with high blood sugar around 400 is due to receiving steroid injection in the right knee joint 1 day prior to admission Most recent HbA1C:8.2 on 03/03 Plan to resume Metformin upon discharge Continue Insulin therapy while hospitalized Per Glycemic pharmacy recs from 03/07/2021 : Recommend Initiation of Lantus 19 units daily with Novolog 5 [facility]. Right Knee osteoarthritis Knee X ray: No acute fracture or dislocation within the right knee. Severe tricompartmental osteoarthritis and multiple intra-articular loose bodies again noted. Chronic lateral subluxation of the patella. Very high risk for given comorbidities. Ortho on board Recommended conservative treatment at this time including bracing Continue weight - bear as tolerated right lower extremity as per ortho Continue Lidoderm patch Pain control Continue PT/OT May need follow-up with pain clinic as outpatient Plan to go to [place] for rehab next week (2) Acute dehydration: (3) GEGE (acute kidney injury): Likely secondary to dehydration Received IV fluids Monitor renal function Resolved (4) UTI (urinary tract infection): Urine Cx: Klebsiella pneumonia--pansensitive Completed IV ciprofloxacin course (5) Falls: had an episode of fall on 04/09 while in the hospital Continue PT/OT Fall precaution Waiting placement week to [place] (6) Hypertension: Not on any BP med Stable Depression Continue home medications Right Heel Pain Pain control Continue Waffle Boot Constipation Possible related to narcotic added Dulcolax and miralax HIV disease Continue antiviral medications DVT prophylaxis Lovenox SQ CODE STATUS Full Code Disposition Case management working on placement Waiting for rehab placement next week Admission and Anticipated Discharge Date Admission Date: February 22, 2020 Subjective Pt was seen and examined Lying in bed with no distress watching TV Denies any chest pain, palpitation, dizziness and SOB Physical Exam Physical Exam: General- No acute distress Head- atraumatic Eyes- PERRL, EOMI, ENT- oropharynx clear Neck- supple, no JVD Lungs- clear to auscultation Heart- regular rhythm; no murmur Abdomen- normal bowel sounds, soft, nontender Extremities- no calf tenderness, left AKA Neuro- alert, oriented x 3; PERRL, EOMI; no facial palsy; no dysarthria Skin- warm & dry Results & Data Results & Data ([facility]) Vital Signs (Past 12 Hours) Vital Signs Temp Pulse Resp BP Pulse Ox 04/12/20 15:10 36.7 C 70 18 132/82 98 04/12/20 07:37 36.9 C 81 20 144/75 H 96 (1) UTI (urinary tract infection) Hematuria presence: with hematuria Urinary tract infection type: acute cystitis Qualified Code(s): N30.01 - Acute cystitis with hematuria
[2020-04-12] MEDS: DOLUTEGRAVIR SODIUM 50 MG TAB PO SCH (20:38)
[2020-04-12] MEDS: DESCOVY PO SCH (20:39)
[2020-04-13] MEDS: oxyCODONE HCL IR 5 MG TAB (IMMEDIATE RELEASE) PO PRN ×2 (06:04→20:16)
[2020-04-13] MEDS: clonazePAM 0.5 MG TAB PO PRN ×2 (06:05→20:16)
[2020-04-13] MEDS: INSULIN ASPART 100 UNITS/ML 3 ML PEN SC SCH ×4 (08:50→21:04)
[2020-04-13] MEDS: busPIRone 7.5 MG TAB PO SCH ×2 (08:53→20:17)
[2020-04-13] MEDS: fluvoxaMINE MALEATE 50 MG TAB PO SCH ×2 (08:54→20:19)
[2020-04-13] MEDS: LIDOCAINE 5% 1 PATCH TD SCH (08:54)
[2020-04-13] MEDS: ENOXAPARIN INJ 40 MG/0.4 ML SYR SQ SCH ×2 (08:54→20:17)
[2020-04-13] MEDS: ADVANCED PROBIOTIC 1250 MG CAPSULE PO SCH (08:55)
[2020-04-13] MEDS: risperiDONE 0.5 MG TABLET PO SCH ×2 (08:55→20:19)
[2020-04-13] MEDS: hydrOXYzine HCl 25 MG TAB PO SCH ×3 (08:56→20:45)
[2020-04-13] MEDS: DICLOFENAC SOD 1% GEL 100 GM TUBE EXT SCH ×2 (08:56→20:20)
[2020-04-13] MEDS: INSULIN GLARGINE SOLOSTAR 100 UNITS/ML 3 ML PEN SC SCH (09:47)
[2020-04-13] MEDS: DOLUTEGRAVIR SODIUM 50 MG TAB PO SCH (13:06)
[2020-04-13] MEDS: ACETAMINOPHEN 325 MG TAB PO PRN (13:06)
--- NOTE | 2020-04-13 16:40 | Hospitalist Progress Note ---
Date of Service April 13, 2020 Assessment & Plan (1) Acute hyperglycemia: H/O DM II Presented with high blood sugar around 400 is due to receiving steroid injection in the right knee joint 1 day prior to admission Most recent HbA1C:8.2 on 03/03 Plan to resume Metformin upon discharge Continue Insulin therapy while hospitalized Per Glycemic pharmacy recs from 03/07/2021 : Recommend Initiation of Lantus 19 units daily with Novolog 5 units with meals while at [facility]. Right Knee osteoarthritis Knee X ray: No acute fracture or dislocation within the right knee. Severe tricompartmental osteoarthritis and multiple intra-articular loose bodies again noted. Chronic lateral subluxation of the patella. Very high risk for given comorbidities. Ortho on board Recommended conservative treatment at this time including bracing Continue weight - bear as tolerated right lower extremity as per ortho Continue Lidoderm patch Pain control Continue PT/OT May need follow-up with pain clinic as outpatient Plan to go to [place] for rehab next week (2) Acute dehydration: (3) GEGE (acute kidney injury): Likely secondary to dehydration Received IV fluids Monitor renal function Resolved (4) UTI (urinary tract infection): Urine Cx: Klebsiella pneumonia--pansensitive Completed IV ciprofloxacin course (5) Falls: had an episode of fall on 04/09 while in the hospital Continue PT/OT Fall precaution Waiting placement week to [place] (6) Hypertension: Not on any BP med Stable Depression Continue home medications Right Heel Pain Pain control Continue Waffle Boot Constipation Possible related to narcotic added Dulcolax and miralax HIV disease Continue antiviral medications DVT prophylaxis Lovenox SQ CODE STATUS Full Code Disposition Case management working on placement Waiting for rehab placement next week Admission and Anticipated Discharge Date Admission Date: February 22, 2020 Subjective Pt was seen and examined. Lying in bed with no distress watching TV Pt does not want me to put any PT/OT order for her because she said that when she stands on her leg, it causes pain Denies any chest pain, palpitation, dizziness and SOB Physical Exam Physical Exam: General- No acute distress Head- atraumatic Eyes- PERRL, EOMI, ENT- oropharynx clear Neck- supple, no JVD Lungs- clear to auscultation Heart- regular rhythm; no murmur Abdomen- normal bowel sounds, soft, nontender Extremities- no calf tenderness, left AKA Neuro- alert, oriented x 3; PERRL, EOMI; no facial palsy; no dysarthria Skin- warm & dry Results & Data Results & Data ([facility]) Vital Signs (Past 12 Hours) Vital Signs Temp Pulse Resp BP Pulse Ox 04/13/20 15:09 36.8 C 65 18 131/80 97 04/13/20 07:22 36.7 C 78 16 133/73 95 (1) UTI (urinary tract infection) Hematuria presence: with hematuria Urinary tract infection type: acute cystitis Qualified Code(s): N30.01 - Acute cystitis with hematuria
[2020-04-13] MEDS: DESCOVY PO SCH (20:20)
[2020-04-14] MEDS: clonazePAM 0.5 MG TAB PO PRN ×2 (05:13→20:49)
[2020-04-14] MEDS: oxyCODONE HCL IR 5 MG TAB (IMMEDIATE RELEASE) PO PRN ×3 (05:13→20:49)
[2020-04-14] MEDS: INSULIN GLARGINE SOLOSTAR 100 UNITS/ML 3 ML PEN SC SCH (08:45)
[2020-04-14] MEDS: LIDOCAINE 5% 1 PATCH TD SCH (08:45)
[2020-04-14] MEDS: INSULIN ASPART 100 UNITS/ML 3 ML PEN SC SCH ×4 (08:46→20:47)
[2020-04-14] MEDS: hydrOXYzine HCl 25 MG TAB PO SCH ×3 (08:47→20:53)
[2020-04-14] MEDS: risperiDONE 0.5 MG TABLET PO SCH ×2 (08:47→20:52)
[2020-04-14] MEDS: busPIRone 7.5 MG TAB PO SCH ×2 (08:47→20:51)
[2020-04-14] MEDS: ADVANCED PROBIOTIC 1250 MG CAPSULE PO SCH (08:48)
[2020-04-14] MEDS: fluvoxaMINE MALEATE 50 MG TAB PO SCH ×2 (08:48→20:52)
[2020-04-14] MEDS: ENOXAPARIN INJ 40 MG/0.4 ML SYR SQ SCH ×2 (08:48→20:50)
[2020-04-14] MEDS: DICLOFENAC SOD 1% GEL 100 GM TUBE EXT SCH ×2 (08:49→20:53)
--- NOTE | 2020-04-14 15:13 | Hospitalist Progress Note ---
Date of Service April 14, 2020 Assessment & Plan (1) Acute hyperglycemia: H/O DM II Presented with high blood sugar around 400 is due to receiving steroid injection in the right knee joint 1 day prior to admission Most recent HbA1C:8.2 on 03/03 Plan to resume Metformin upon discharge Continue Insulin therapy while hospitalized Pharmacy on board for glycemic management Continue Lantus 15 units daily with Novolog 5 units with meals while at [facility]. Right Knee osteoarthritis Knee X ray: No acute fracture or dislocation within the right knee. Severe tricompartmental osteoarthritis and multiple intra-articular loose bodies again noted. Chronic lateral subluxation of the patella. Very high risk for given comorbidities. Ortho on board Recommended conservative treatment at this time including bracing Continue weight - bear as tolerated right lower extremity as per ortho Continue Lidoderm patch Pain control Continue PT/OT May need follow-up with pain clinic as outpatient Plan to go to [place] for rehab next week (2) Acute dehydration: As above (3) GEGE (acute kidney injury): Likely secondary to dehydration Received IV fluids Monitor renal function Resolved (4) UTI (urinary tract infection): Urine Cx: Klebsiella pneumonia--pansensitive Completed IV ciprofloxacin course (5) Falls: had an episode of fall on 04/09 while in the hospital Continue PT/OT Fall precaution Waiting placement week to [place] (6) Hypertension: Not on any BP med Stable Depression Continue home medications Right Heel Pain Pain control Continue Waffle Boot Constipation Possible related to narcotic added Dulcolax and miralax HIV disease Continue antiviral medications DVT prophylaxis Lovenox SQ CODE STATUS Full Code Disposition Case management working on placement Waiting for rehab placement next week Admission and Anticipated Discharge Date Admission Date: February 22, 2020 Subjective Pt was seen and examined. Lying in bed with no distress watching TV Pt said that he feels fine Denies any chest pain, palpitation, dizziness and SOB Physical Exam Physical Exam: General- No acute distress Head- atraumatic Eyes- PERRL, EOMI, ENT- oropharynx clear Neck- supple, no JVD Lungs- clear to auscultation Heart- regular rhythm; no murmur Abdomen- normal bowel sounds, soft, nontender Extremities- no calf tenderness, left AKA Neuro- alert, oriented x 3; PERRL, EOMI; no facial palsy; no dysarthria Skin- warm & dry Results & Data Results & Data ([facility]) Vital Signs (Past 12 Hours) Vital Signs Temp Pulse Resp BP Pulse Ox 04/14/20 07:26 36.4 C L 73 16 124/78 96 (1) UTI (urinary tract infection) Hematuria presence: with hematuria Urinary tract infection type: acute cystitis Qualified Code(s): N30.01 - Acute cystitis with hematuria
[2020-04-14] MEDS: DESCOVY PO SCH (20:51)
[2020-04-14] MEDS: DOLUTEGRAVIR SODIUM 50 MG TAB PO SCH (20:52)
[2020-04-15] MEDS: oxyCODONE HCL IR 5 MG TAB (IMMEDIATE RELEASE) PO PRN ×3 (05:36→20:54)
[2020-04-15] MEDS: clonazePAM 0.5 MG TAB PO PRN ×2 (05:36→20:54)
[2020-04-15] MEDS: LIDOCAINE 5% 1 PATCH TD SCH (08:05)
[2020-04-15] MEDS: ADVANCED PROBIOTIC 1250 MG CAPSULE PO SCH (08:06)
[2020-04-15] MEDS: fluvoxaMINE MALEATE 50 MG TAB PO SCH ×2 (08:07→20:55)
[2020-04-15] MEDS: risperiDONE 0.5 MG TABLET PO SCH ×2 (08:07→20:55)
[2020-04-15] MEDS: busPIRone 7.5 MG TAB PO SCH ×2 (08:07→20:54)
[2020-04-15] MEDS: hydrOXYzine HCl 25 MG TAB PO SCH ×3 (08:07→20:56)
[2020-04-15] MEDS: ENOXAPARIN INJ 40 MG/0.4 ML SYR SQ SCH ×2 (08:08→20:54)
[2020-04-15] MEDS: DICLOFENAC SOD 1% GEL 100 GM TUBE EXT SCH ×2 (08:08→20:57)
[2020-04-15] MEDS: INSULIN ASPART 100 UNITS/ML 3 ML PEN SC SCH ×4 (08:35→21:00)
[2020-04-15] MEDS: INSULIN GLARGINE SOLOSTAR 100 UNITS/ML 3 ML PEN SC SCH (08:36)
[2020-04-15] MEDS: ACETAMINOPHEN 325 MG TAB PO PRN (13:19)
--- NOTE | 2020-04-15 17:36 | Hospitalist Progress Note ---
Date of Service April 15, 2020 Assessment & Plan (1) Acute hyperglycemia: H/O DM II Presented with high blood sugar around 400 is due to receiving steroid injection in the right knee joint 1 day prior to admission Most recent HbA1C:8.2 on 03/03 Plan to resume Metformin upon discharge Continue Insulin therapy while hospitalized Pharmacy on board for glycemic management Continue Lantus 15 units daily with Novolog 5 [facility]. Right Knee osteoarthritis Knee X ray: No acute fracture or dislocation within the right knee. Severe tricompartmental osteoarthritis and multiple intra-articular loose bodies again noted. Chronic lateral subluxation of the patella. Very high risk for given comorbidities. Ortho on board Recommended conservative treatment at this time including bracing Continue weight - bear as tolerated right lower extremity as per ortho Continue Lidoderm patch Pain control Continue PT/OT May need follow-up with pain clinic as outpatient Plan to go to [place] for rehab Tomorrow (2) Acute dehydration: (3) GEGE (acute kidney injury): Likely secondary to dehydration Received IV fluids Monitor renal function Resolved (4) UTI (urinary tract infection): Urine Cx: Klebsiella pneumonia--pansensitive Completed IV ciprofloxacin course (5) Falls: had an episode of fall on 04/09 while in the hospital Continue PT/OT Fall precaution Possible to discharge tomorrow to [place] (6) Hypertension: Not on any BP med Stable Depression Continue home medications Right Heel Pain Pain control Continue Waffle Boot Constipation Possible related to narcotic added Dulcolax and miralax HIV disease Continue antiviral medications DVT prophylaxis Lovenox SQ CODE STATUS Full Code Disposition Case management working on placement Possible discharge to [place] tomorrow Admission and Anticipated Discharge Date Admission Date: February 22, 2020 Subjective Pt was seen and examined. Lying in bed with no distress watching TV Pt said that she feels fine Spoke to case management and she might possible transfer to [place] tomorrow Denies any chest pain, palpitation, dizziness and SOB Physical Exam Physical Exam: General- No acute distress Head- atraumatic Eyes- PERRL, EOMI, ENT- oropharynx clear Neck- supple, no JVD Lungs- clear to auscultation Heart- regular rhythm; no murmur Abdomen- normal bowel sounds, soft, nontender Extremities- no calf tenderness, left AKA Neuro- alert, oriented x 3; PERRL, EOMI; no facial palsy; no dysarthria Skin- warm & dry Results & Data Results & Data ([facility]) Vital Signs (Past 12 Hours) Vital Signs Temp Pulse Resp BP Pulse Ox 04/15/20 15:14 36.8 C 74 16 158/90 H 97 04/15/20 07:04 36.7 C 73 18 122/76 96 (1) UTI (urinary tract infection) Hematuria presence: with hematuria Urinary tract infection type: acute cy stitis Qualified Code(s): N30.01 - Acute cystitis with hematuria
[2020-04-15] MEDS: DESCOVY PO SCH (20:55)
[2020-04-15] MEDS: DOLUTEGRAVIR SODIUM 50 MG TAB PO SCH (20:56)
[2020-04-16] MEDS: oxyCODONE HCL IR 5 MG TAB (IMMEDIATE RELEASE) PO PRN ×2 (05:23→13:04)
[2020-04-16] MEDS: clonazePAM 0.5 MG TAB PO PRN (05:23)
[2020-04-16] MEDS: ADVANCED PROBIOTIC 1250 MG CAPSULE PO SCH (08:27)
[2020-04-16] MEDS: risperiDONE 0.5 MG TABLET PO SCH (08:28)
[2020-04-16] MEDS: hydrOXYzine HCl 25 MG TAB PO SCH ×2 (08:28→13:03)
[2020-04-16] MEDS: fluvoxaMINE MALEATE 50 MG TAB PO SCH (08:28)
[2020-04-16] MEDS: busPIRone 7.5 MG TAB PO SCH (08:28)
[2020-04-16] MEDS: DICLOFENAC SOD 1% GEL 100 GM TUBE EXT SCH (08:28)
[2020-04-16] MEDS: LIDOCAINE 5% 1 PATCH TD SCH (08:29)
[2020-04-16] MEDS: ENOXAPARIN INJ 40 MG/0.4 ML SYR SQ SCH (08:34)
[2020-04-16] MEDS: INSULIN ASPART 100 UNITS/ML 3 ML PEN SC SCH ×2 (08:37→12:42)
[2020-04-16] MEDS: INSULIN GLARGINE SOLOSTAR 100 UNITS/ML 3 ML PEN SC SCH (08:37)
--- NOTE | 2020-04-16 12:35 | Discharge Summary ---
Date of Service April 16, 2020 Admission HPI Per Admitting Provider 59-year-old female with a past medical history of acute kidney injury, hypertension, loss of sensation of the right foot, left AKA secondary to multiple knee infections after knee replacement, HIV, chronic anemia, diabetic peripheral neuropathy, generalized anxiety disorder, history of diabetic foot ulcer, major depression disorder, and suicidal ideation, who presents to the ED with a chief complaint of hyperglycemia. The patient was recommended by her case loader operator to come in for medical evaluation. The patient did receive a steroid injection in her right knee earlier today for some chronic knee problems. She also has history of a left [id number] amputation. The patient reports a history of HIV and diabetes. She has had some increased falls related to her knee issues recently. She also reports some chronic urinary incontinence. The patient's personal case loader operator, Rik Anglin, feels that she would benefit from being placed in a personal fdc. The patient denies any additional complaints at this time. She currently is living in the [facility] since November. While in the ER she was found to have a blood sugar of 400, a urinary tract infection, and labs reveal dehydration. Past medical historyacute kidney injury, hypertension, left AKA, knee infections, HIV, chronic anemia, diabetes type 2, diabetic peripheral neuropathy, generalized anxiety disorder, history of diabetic foot ulcer, major depression disorder, history of suicide ideation. Past medical historyleft AKA, bilateral carpal tunnel release Social historycurrently [facility] Family historyreviewed and noncontributory to present illness Admission Exam Per Admitting Provider Gen-AAO x 3, NAD, Afebrile, very pleasant, obese. Head-NCAT, EOMI, PERRLA, Anicteric Sclera, No Posterior Pharyngeal Erythema Neck-Supple, No JVD, No Thyromegaly, No Masses, No LAD, No Bruits Lungs-Clear to Auscultation Bilaterally, No Rales, No Rhonchi, No Wheezing, No Crepitus Chest-No S4, +S1, +S2, No S3, No Murmurs, No Rubs, No Gallops, No Ectopy Abdomen-Soft, Bowel Sounds Present, Non Tender, Non Distended, No Hepatomegaly, No Splenomegaly, No Palpable Masses, No Rebound, No Rigidity, No Guarding Musculoskeletal-Full Range of Motion Bilaterally, No CVAT Extremities-No Cyanosis, No Clubbing, No Edema on the right, left AKA Nuero-Cranial Nerves II-XII grossly intact, Motor WNL, DTRs WNL, Strength WNL, Non Focal Psych-Normal Mood Principal Diagnosis 1) Acute hyperglycemia: (2) GEGE (acute kidney injury): (3) Acute dehydration: (4) UTI (urinary tract infection): (5) Falls: (6) Hypertension: (7) HIV disease: (8) Chronic anemia: (9) Diabetic peripheral neuropathy associated with type 2 diabetes mellitus: (10) TINO (generalized anxiety disorder): (11) History of diabetic ulcer of foot: (12) Major depressive disorder, recurrent severe without psychotic features: Discharge Exam General- No acute distress Head- atraumatic Eyes- PERRL, EOMI, ENT- oropharynx clear Neck- supple, no JVD Lungs- clear to auscultation Heart- regular rhythm; no murmur Abdomen- normal bowel sounds, soft, nontender Extremities- no calf tenderness, left AKA Neuro- alert, oriented x 3; PERRL, EOMI; no facial palsy; no dysarthria Skin- warm & dry Discharge Data Allergies Allergy/AdvReac Type Severity Reaction Status Date / Time clams Allergy Severe HIVES Unverified 02/22/20 15:06 ceftriaxone Allergy Intermediate HIVES, Rash Verified 02/22/20 15:06 Penicillins Allergy Intermediate body gets Verified 02/22/20 15:06 red vancomycin AdvReac Mild RED MAN Verified 02/22/20 15:06 SYNDROME Consultations 02/22/20 14:57 ED Decision to Admit Stat 02/22/20 17:07 Consult Case Management - Discharge Planning Routine 03/17/20 12:22 Consult Orthopedic Surgery Routine Ordered Studies RIGHT KNEE 3 VIEWS CLINICAL HISTORY: Fall. Right knee pain. FINDINGS: AP, crosstable lateral, and sunrise portable views of the right knee are compared to study dated 03/17/2020. The skeletal structures are osteopenic. No fracture is seen. There is advanced tricompartmental degenerative joint space narrowing with near complete loss of the joint spaces. There are large marginal osteophytes, patellar enthesophytes, and significant bony overgrowth around the knee. There are numerous calcified joint bodies. A small joint effusion is noted. Soft tissue edema is present around the knee. There is advanced atherosclerotic calcification of the popliteal artery. The patella is laterally subluxed. IMPRESSION: 1. Soft tissue swelling with no fracture identified. 2. Osteopenia with advanced degenerative change, small joint effusion, and large calcified joint bodies as above. 3. Lateral patellar subluxation is similar to previous. Electronically signed by: Lincoln Caceres M.D. 04/09/2020 8:11 AM Dictated: 04/09/20 0809Transcribed: 04/09/20 0809 XR knee RT 3V CLINICAL HISTORY: Right knee pain. COMPARISON STUDY: Right knee CT and radiograph 06/07/2018. FINDINGS: The bones are osteopenic. Severe tricompartmental osteoarthritis with multiple intra-articular loose bodies. This remains unchanged. Suspect a small right knee effusion, unchanged. Vascular calcifications are noted. Chronic lateral subluxation of the patella and relation to the femur. IMPRESSION: 1. No acute fracture or dislocation within the right knee. 2. Severe tricompartmental osteoarthritis and multiple intra-articular loose bodies again noted. 3. Chronic lateral subluxation of the patella. ACT 112: Negative or not required by law. Electronically signed by: Jose Li M.D. 03/17/2020 5:09 PM Dictated: 03/17/201706Transcribed: 03/17/201706 Hospital Course (1) Acute hyperglycemia: H/O DM II Presented with high blood sugar around 400 is due to receiving steroid injection in the right knee joint 1 day prior to admission Most recent HbA1C:8.2 on 03/03 Plan to resume Metformin upon discharge Continue Insulin therapy while hospitalized Pharmacy on board for glycemic management Continue Lantus 15 units daily with Novolog 5 units with meals [facility]. Right Knee osteoarthritis Knee X ray: No acute fracture or dislocation within the right knee. Severe tricompartmental osteoarthritis and multiple intra-articular loose bodies again noted. Chronic lateral subluxation of the patella. Very high risk for given comorbidities. Ortho on board Recommended conservative treatment at this time including bracing Continue weight - bear as tolerated right lower extremity as per ortho Continue Lidoderm patch Pain control Continue PT/OT May need follow-up with pain clinic as outpatient Plan to go to [facility] for rehab Tomorrow (2) Acute dehydration: (3) GEGE (acute kidney injury): Likely secondary to dehydration Received IV fluids Monitor renal function Resolved (4) UTI (urinary tract infection): Urine Cx: Klebsiella pneumonia--pansensitive Completed IV ciprofloxacin course (5) Falls: had an episode of fall on 04/09 while in the hospital Continue PT/OT Fall precaution Possible to discharge tomorrow to [facility] (6) Hypertension: Not on any BP med Stable Depression Continue home medications Right Heel Pain Pain control Continue Waffle Boot Constipation Possible related to narcotic added Dulcolax and miralax HIV disease Continue antiviral medications DVT prophylaxis Lovenox SQ CODE STATUS Full Code Disposition Case management working on placement Possible discharge to [facility] tomorrow Total Time Total Time Spent Total Time Spent (In Minutes): 35 minutes Total Time Includes: Examination of the Patient, Discharge Planning, Medication Reconciliation, Communication With Other Providers and Other Discharge Plan Discharge Items Patient Disposition: Personal [facility] Reason For Visit: HYPERGLYCEMIA, UTI Discharge Diagnosis: Hyperglycemia Right Knee osteoarthritis Acute dehydration: GEGE (acute kidney injury): UTI (urinary tract infection): Falls: Hypertension: Depression Right Heel Pain Constipation HIV disease Activity: Resume your previous activity Non-emergency contact: Primary Care Provider Call non-emergency contact if: you have any medication questions Follow-up/Referrals: Theron Springer DO [Primary Care Provider] - (Date & Time 04/22/2020 1:40 PM Provider Theron Springer DO Department [facility] ) Diet: Carb Consistent or DM2 Addtl Attending Provider Instructions: Follow up with your primary care provider Dr. Springer on 04/22/2020 at 1:40 PM Provider Theron Springer DO Department Follow up with orthopedic dr. Stokes (please call to schedule for the appointment) Continue physical and occupational therapy Consider outpatient pain management if pain worsening (your physician can place the referral) Continue weight-bear as tolerated in right lower extremity Continue to wear the brace as well for support Fall precaution Continue monitor your blood sugar and bring your blood sugar log at your next appointment with your provider Follow a low carb diet and limited concentrated sweet intake Continue Lantus 15 units daily Continue Novolog 5 units with each meals Please hold next dose of narcotic if you become drowsy or lethargy Please do not drive or operate any machine after taking the narcotic Pending Studies at Discharge: No Stand-Alone Forms: My [employer], Smoking Cessation Skilled Items Patient informed of condition?: Yes DNR: No Discharge Level of Care: Other Communicable Disease: No Discharge Prognosis: Stable Lines: None Urinary Catheter: No Medications and DC Order Prescriptions: New oxycodone 5 mg Tablet 5 mg PO Q8 PRN (Reason: pain) Qty: 10 RF: 0 Lantus Solostar U-100 Insulin 100 unit/mL (3 mL) Insulin Pen 15 unit SC QAM 30 Days Qty: 4.5 RF: 0 lidocaine 5 % Adhesive Patch,Medicated 1 patch transdermal QAM Qty: 5 RF: 0 bisacodyl [Gentle Laxative (bisacodyl)] 5 mg Tablet,Delayed Release (Dr/Ec) 5 mg PO DAILY PRN (Reason: constipation) Qty: 30 RF: 0 diclofenac sodium [Voltaren] 1 % Gel 4 g EXT BID Qty: 1 RF: 0 polyethylene glycol 3350 [Miralax] 17 gram Powder In Packet 17 g PO DAILY PRN (Reason: constipation) Qty: 30 RF: 0 insulin aspart U-100 [Novolog Flexpen U-100 Insulin] 100 unit/mL (3 mL) Insulin Pen 5 unit SC ACHS 30 Days Qty: 1.5 RF: 0 Continued nitroglycerin 0.4 mg tablet, sublingual 0.4 mg SL .COMPLEX RF: 0 metformin 500 mg tablet 500 mg PO BID RF: 0 hydroxyzine HCl 50 mg tablet 50 mg PO TID RF: 0 fluvoxamine 100 mg tablet 100 mg PO BID RF: 0 buspirone 15 mg tablet 7.5 mg PO BID RF: 0 Tivicay 50 mg tablet 50 mg PO HS RF: 0 Descovy 200-25 mg tablet 1 tab PO HS RF: 0 aspirin [Aspir-81] 81 mg Tablet,Delayed Release (Dr/Ec) 81 mg PO DAILY RF: 0 risperidone 0.5 mg tablet 0.5 mg PO BID RF: 0 clonazepam 0.5 mg tablet 0.5 mg PO BID PRN (Reason: Anxiety) RF: 0 Discharge Orders: Discharge Order (Routine); Ordered 04/16/20 Ordered By: Glenna Esteban Admission Data Admit Date/Time: 02/22/20 15:37 Attending Provider: Glenna Esteban Admit Provider: Ezekiel Villanueva Primary Care Provider: Theron Springer Other Providers: [facility] ; Ezekiel Villanueva ; Benitez Randall. ; [place] ; Ramos Wild ; Refugio Stokes ; Tomas Parker ; Laura Ramirez ; Zach Guerrero ; Selena Pitts ; Alexis Delgado ; Pedro Pablo Gay ; Nikos Anderson ; Pedro Pablo Prather ; Adriano Deleon. ; Nikos Reardon ; Edwardo Jules ; John Paul Arriaza ; Josh Gomez ; Phill Mobley ; Kaleb Moreno ; Selena Barrientos ; Melo Brandon ; Jorge Martini ; Kasia Khanna ; Johnathon Parekh ; Graciela Koehler ; Glenna Esteban ; Shannan Wagoner. Other Interventions: Discharge Summary Assessment (RN) Last Done: 04/16/20 11:22
== END 2020-04-16 14:00 | disposition home or self-care (01) | DRG 638 ==
LOC: ED 12:23 → 2N 15:37 → SUATTDRO 15:37 → 2N 16:33 → 3N 02-25 20:51

== ENCOUNTER 2021-05-06 01:32 | Inpatient (IN) ==
[2021-05-06] MEDS ORDERED: SODIUM CHLORIDE 0.9% 1000ML 1,000 ML IV SCH ×2 (01:45→02:30)
[2021-05-06] MEDS ORDERED: ERTAPENEM SODIUM 10 ML IV STA (01:46)
[2021-05-06] MEDS ORDERED: DAPTOMYCIN IV ONE (01:46)
[2021-05-06 02:10] LABS: Basophils # (auto) 0.02 K/uL (0-0.2); Basophils % (auto) 0.1 %; Hematocrit (blood only) 32.2 % (37-47); Hemoglobin 10.7 g/dL (12.0-16.0); Immature Granulocytes # (auto) 0.08 K/uL (0.00-0.02); Immature Granulocytes % (auto) 0.5 %; Lymphocytes # (auto) 1.72 K/uL (1.2-3.4); Lymphocytes % (auto) 11.3 %; Mean Corpuscular Hemoglobin 29.9 pg (25-34); Mean Corpuscular Hgb Conc 33.2 g/dL (32-36); Mean Corpuscular Volume 89.9 fL (80-100); Mean Platelet Volume 8.8 fL (7.4-10.4); Monocytes # (auto) 1.33 K/uL (0.11-0.59); Monocytes % (auto) 8.7 %; Neutrophils # (auto) 12.07 K/uL (1.4-6.5); Neutrophils % (auto) 79.4 %; Platelet Count 198 K/uL (130-400); RDW Coefficient of Variation 13.3 % (11.5-14.5); RDW Standard Deviation 43.8 fL (36.4-46.3); Red Blood Count 3.58 M/uL (4.2-5.4); White Blood Count 15.22 K/uL (4.8-10.8)
[2021-05-06] MEDS ORDERED: ACETAMINOPHEN 1,000 MG/100 ML VIAL IV STA (02:19)
[2021-05-06 02:34] LABS: Alanine Aminotransferase 14 U/L (7-52); Albumin Level 3.5 gm/dl (3.4-5.0); Alkaline Phosphatase 54 U/L (34-104); Anion Gap 7 (3-11); BUN Creatinine Ratio 17.9 (10-20); Bilirubin,Total 0.7 mg/dl (0.2-1.0); Blood Urea Nitrogen 29 mg/dl (6-23); Carbon Dioxide 23 mmol/L (21-32); Chloride 100 mmol/L (98-107); Est GFR (African American) 39.9 ml/min; Est GFR (Non-African American) 34.4 ml/min; Globulin 3.4 gm/dl (2.5-4.0); Glucose 201 mg/dl (70-99(Fasting)); Lipase 10 U/L (11-82); Magnesium 1.8 mg/dl (1.7-2.4); Sodium 130 mmol/L (136-145); Total Protein 6.9 gm/dl (6.0-8.3)
[2021-05-06 02:45] LABS: Base Excess VBG 0 mEq/L; HCO3 VBG 25 mmol/L; PCO2 VBG 44 mmHg (38-50); PO2 VBG 31 mmHg; pH VBG 7.38 (7.36-7.41)
[2021-05-06 02:47] LABS: Oxygen Saturation VBG < 60.0 %
[2021-05-06 03:03] LABS: Influenza A virus by PCR Negative (Neg); Influenza B virus by PCR Negative (Neg); RSV by PCR Negative (Neg); SARS CoV2 RNA(COVID-19) InHosp NEGATIVE (Negative)
[2021-05-06 03:22] LABS: INR 1.1 (0.9-1.1); Partial Thromboplastin Ratio 1.3; Partial Thromboplastin Time 33.4 Seconds (21.0-31.0); Prothrombin Time 10.9 Seconds (9.0-12.0)
[2021-05-06 03:34] LABS: Potassium 4.7 mmol/L (3.5-5.1)
[2021-05-06] MEDS ORDERED: CONSULT PHARMACY STA (04:54)
[2021-05-06 05:12] LABS: Appearance Urine Cloudy (Clear); Bacteria Urine Automated 1+ (Negative); Bilirubin Urine Negative (Negative); Blood Urine 1+ (Negative); Cast Urine Automated 0 /lpf (0-5); Color Urine Yellow; Epithelial Cell Urine Auto >30 /lpf (0-5); Glucose Urine UA Negative (Negative); Ketones Urine Negative (Negative); Leukocyte Esterase Urine 2+ (Negative); Nitrite Urine Positive (Negative); Protein Urine Trace (Negative); Urobilinogen Urine Negative (Negative); WBC Urine Automated >30 /hpf (0-5); pH Urine 6.5 (4.5-7.5)
--- NOTE | 2021-05-06 05:38 | Emergency Department Note ---
History of Present Illness General Chief complaint: Illness Stated complaint: Illness Time Seen by Provider: 05/06/21 01:33 History of Present Illness This is a 60-year-old female presenting to the emergency department via EMS for evaluation of fever and flulike symptoms for the past 1 day. The patient has a history of diabetes and is positive for HIV. She presents from a [facility] with 1 days worth of fever. On arrival the patient is with fever, tachycardia, and hypotensive. She was seen immediately upon presentation to the department. The patient is vaccinated against COVID-19, and has not had this in the past. She does not have any known exposure to disease, and is not specifically complaining of chest pain, chest tightness, shortness of breath, or abdominal pain. She has not had any medication for her symptoms, and rates her discomfort a 4/10. She feels like she has been eating, drinking, and using the bathroom is normal. No significant medication changes. Home Medications Medication Instructions Recorded Confirmed Type risperidone 0.5 mg tablet 0.5 mg PO TID 06/07/18 05/06/21 History clonazepam 0.5 mg tablet 0.5 mg PO BID 11/11/18 05/06/21 History nitroglycerin 0.4 mg sublingual 0.4 mg SL UD PRN tab 11/11/18 05/06/21 History tablet dolutegravir 50 mg tablet (Tivicay) 50 mg PO HS 02/22/20 05/06/21 History emtricitabine 200 mg-tenofovir 1 tab PO HS 02/22/20 05/06/21 History alafenamide fumarate 25 mg tablet (Descovy) fluvoxamine 100 mg tablet 100 mg PO BID 02/22/20 05/06/21 History hydroxyzine HCl 50 mg tablet 50 mg PO TID 02/22/20 05/06/21 History metformin 500 mg tablet 500 mg PO BIDM 02/22/20 05/06/21 History lidocaine 5 % topical patch 1 patch TRANSDERMAL QAM #5 ea 04/16/20 05/06/21 Rx acetaminophen 325 mg tablet 650 mg PO Q4H PRN MDD 3 GRAMS/24 02/14/21 05/06/21 History (Tylenol) HOURS buspirone 10 mg tablet 20 mg PO BID 02/14/21 05/06/21 History famotidine 20 mg tablet 20 mg PO BID 02/14/21 05/06/21 History guaifenesin 600 mg tablet, 600 mg PO Q12H PRN 02/14/21 05/06/21 History extended release 12 hr (Mucinex) insulin aspart U-100 100 unit/mL 5 unit SUBCUT ACHS 02/14/21 05/06/21 History (3 mL) subcutaneous pen (Novolog Flexpen U-100 Insulin aspart) insulin glargine 100 unit/mL (3 15 unit SUBCUT DAILY 02/14/21 05/06/21 History mL) subcutaneous pen (Basaglar KwikPen U-100 Insulin) loperamide 2 mg capsule 2 mg PO Q6H PRN 02/14/21 05/06/21 History losartan 25 mg tablet 25 mg PO DAILY 02/14/21 05/06/21 History silver sulfadiazine 1 % topical 1 applic TOPICAL DAILY 02/14/21 05/06/21 History cream (Silvadene) trospium 20 mg tablet 20 mg PO BID 02/14/21 05/06/21 History alfuzosin 10 mg tablet,extended 10 mg PO DAILY 05/06/21 05/06/21 History release 24 hr aspirin 81 mg chewable tablet 81 mg PO DAILY 05/06/21 05/06/21 History cyanocobalamin (vitamin B-12) 500 500 mcg SUBLINGUAL DAILY 05/06/21 05/06/21 History mcg sublingual tablet multivitamin,tx-minerals 1 tab PO DAILY 05/06/21 05/06/21 History Allergies Allergy/AdvReac Type Severity Reaction Status Date / Time amoxicillin [From Augmentin] Allergy Severe MERLE Verified 02/14/21 02:00 SYNDROME clams Allergy Severe HIVES Verified 05/06/21 01:54 clavulanic acid Allergy Severe MERLE Verified 02/14/21 02:00 [From Augmentin] SYNDROME ceftriaxone Allergy Intermediate HIVES, Rash Verified 02/14/21 02:00 levofloxacin Allergy Intermediate Hives Verified 02/14/21 02:00 Penicillins Allergy Intermediate CHILLS/RYAN Verified 05/06/21 01:54 RS rosiglitazone [From Avandia] Allergy Intermediate Hives Verified 02/14/21 02:00 vancomycin AdvReac Mild RED MAN Verified 05/06/21 01:54 SYNDROME Past Med/Surg History Medical History (Updated 05/06/21 @ 05:38 by Marques Norman PA-C) Acute dehydration Acute hyperglycemia Acute venous thrombosis GEGE (acute kidney injury) Diabetes Falls History of DVT (deep vein thrombosis) HIV (human immunodeficiency virus infection) Hypertension Partial nontraumatic amputation of foot UTI (urinary tract infection) Surgical History History of carpal tunnel release of both wrists History of carpal tunnel surgery Social History (Updated 05/06/21 @ 05:31 by Marques Norman PA-C) Smoking Status: Former smoker Hx Alcohol Use: No Hx Substance Use: No Preferred Language: Portuguese Communication Ability: Effective Manager Drug Safety Required: No Beliefs That Will Affect Care: None Current Living Situation: Alone Feels Safe at Home: Yes Assistive Devices: Brace/Splint/Immobilizer and Walker Review of Systems A total of 10 systems reviewed and were otherwise negative Physical Exam Vital Signs Vital Signs - 24 hr 05/06/21 01:39 05/06/21 01:43 05/06/21 01:45 Temperature 38.0 C H Temperature Source Oral Pulse Rate 105 H 104 H 104 H Pulse Rate [Apical] Pulse Rhythm [Apical] Pulse Strength [Apical] Respiratory Rate 27 H 22 29 H Blood Pressure 84/51 L Blood Pressure [Right Arm] Blood Pressure Mean 62 Blood Pressure Mean [Right Arm] Blood Pressure Position Lying Blood Pressure Position [Right Arm] Pulse Oximetry 92 94 93 Oxygen Delivery Method Room Air Sepsis Recent Fever Within 48 Hours Yes Sepsis New/Unexplained Change in Mental Status N/A Sepsis Action Taken by Nursing Physician Notified 05/06/21 02:00 05/06/21 02:02 05/06/21 02:05 Temperature Temperature Source Pulse Rate 106 H 105 H 108 H Pulse Rate [Apical] Pulse Rhythm [Apical] Pulse Strength [Apical] Respiratory Rate 15 29 H 19 Blood Pressure 92/53 L Blood Pressure [Right Arm] Blood Pressure Mean 66 Blood Pressure Mean [Right Arm] Blood Pressure Position Blood Pressure Position [Right Arm] Pulse Oximetry 92 94 90 Oxygen Delivery Method Room Air Sepsis Recent Fever Within 48 Hours Sepsis New/Unexplained Change in Mental Status Sepsis Action Taken by Nursing 05/06/21 02:08 05/06/21 02:15 05/06/21 02:30 Temperature Temperature Source Pulse Rate 99 H 97 H Pulse Rate [Apical] 102 H Pulse Rhythm [Apical] Pulse Strength [Apical] Respiratory Rate 31 H 31 H 32 H Blood Pressure 91/60 L Blood Pressure [Right Arm] 92/53 L Blood Pressure Mean 70 Blood Pressure Mean [Right Arm] 66 Blood Pressure Position Blood Pressure Position [Right Arm] Lying Pulse Oximetry 94 91 94 Oxygen Delivery Method Room Air Sepsis Recent Fever Within 48 Hours Sepsis New/Unexplained Change in Mental Status Sepsis Action Taken by Nursing 05/06/21 02:45 05/06/21 03:00 05/06/21 03:15 Temperature Temperature Source Pulse Rate 99 H 93 H 95 H Pulse Rate [Apical] Pulse Rhythm [Apical] Pulse Strength [Apical] Respiratory Rate 18 31 H 24 Blood Pressure 99/68 L 95/63 L Blood Pressure [Right Arm] Blood Pressure Mean 78 73 Blood Pressure Mean [Right Arm] Blood Pressure Position Blood Pressure Position [Right Arm] Pulse Oximetry 96 92 92 Oxygen Delivery Method Sepsis Recent Fever Within 48 Hours Sepsis New/Unexplained Change in Mental Status Sepsis Action Taken by Nursing 05/06/21 03:30 05/06/21 03:35 05/06/21 03:45 Temperature 37.2 C Temperature Source Oral Pulse Rate 94 H 95 H Pulse Rate [Apical] Pulse Rhythm [Apical] Pulse Strength [Apical] Respiratory Rate 25 H 25 H Blood Pressure 92/63 L 93/59 L Blood Pressure [Right Arm] Blood Pressure Mean 72 70 Blood Pressure Mean [Right Arm] Blood Pressure Position Blood Pressure Position [Right Arm] Pulse Oximetry 93 94 Oxygen Delivery Method Sepsis Recent Fever Within 48 Hours Sepsis New/Unexplained Change in Mental Status Sepsis Action Taken by Nursing 05/06/21 04:00 05/06/21 04:15 05/06/21 04:30 Temperature Temperature Source Pulse Rate 96 H 98 H 97 H Pulse Rate [Apical] Pulse Rhythm [Apical] Pulse Strength [Apical] Respiratory Rate 26 H 24 25 H Blood Pressure 93/69 L 100/66 107/60 Blood Pressure [Right Arm] Blood Pressure Mean 77 77 75 Blood Pressure Mean [Right Arm] Blood Pressure Position Blood Pressure Position [Right Arm] Pulse Oximetry 95 98 97 Oxygen Delivery Method Sepsis Recent Fever Within 48 Hours Sepsis New/Unexplained Change in Mental Status Sepsis Action Taken by Nursing 05/06/21 04:45 05/06/21 05:00 05/06/21 05:07 Temperature Temperature Source Pulse Rate 97 H 95 H Pulse Rate [Apical] 92 H Pulse Rhythm [Apical] Regular Pulse Strength [Apical] Normal Respiratory Rate 17 23 29 H Blood Pressure Blood Pressure [Right Arm] 106/59 L Blood Pressure Mean Blood Pressure Mean [Right Arm] 74 Blood Pressure Position Blood Pressure Position [Right Arm] Lying Pulse Oximetry 98 96 95 Oxygen Delivery Method Room Air Sepsis Recent Fever Within 48 Hours Sepsis New/Unexplained Change in Mental Status Sepsis Action Taken by Nursing VITALS: Vitals are noted on the nurse's note and reviewed by myself. Vital signs with fever, tachycardia, and hypotension GENERAL: Morbidly obese and chronically ill-appearing white female who is answering questions appropriate. HEAD: Normocephalic atraumatic. NECK: Supple without nuchal rigidity. No lymphadenopathy. No thyromegaly. Cervical spine is nontender. HEART: Tachycardic rate with regular rhythm LUNGS: Generally clear bilateral ABDOMEN: Positive normal bowel sounds x 4. Soft, nontender, without masses or organomegaly. No guarding or rebound tenderness. MUSCULOSKELETAL: No muscle atrophy, erythema, or edema noted. Knee brace noted to the right lower extremity. NEURO: Patient was alert and oriented to person place and time. CN II through XII grossly intact. Course Administered Medications Discontinued Medications Sodium Chloride (Nss 1000ml) 1,000 mls @ 999 mls/hr IV .Q1H1M ALEKS Stop: 05/06/21 02:45 Last Infusion: 05/06/21 03:19 Dose: 0 mls/hr Documented by: [id number] Admin: 05/06/21 02:11 Dose: 999 mls/hr Documented by: [id number] Ertapenem (Invanz) 10 mls @ 2 mls/min IV NOW STA Stop: 05/06/21 01:50 Last Admin: 05/06/21 03:28 Dose: 2 mls/min Documented by: [id number] Daptomycin 714 mg/ Syringe 14.28 mls @ 7.14 mls/min IV NOW ONE; Protocol Stop: 05/06/21 01:47 Last Admin: 05/06/21 02:50 Dose: 7.14 mls/min Documented by: [id number] Sodium Chloride (Nss 1000ml) 1,000 mls @ 999 mls/hr IV .Q1H1M ALEKS Stop: 05/06/21 03:30 Last Infusion: 05/06/21 03:48 Dose: 0 mls/hr Documented by: [id number] Admin: 05/06/21 02:51 Dose: 999 mls/hr Documented by: [id number] Acetaminophen (Ofirmev) 1,000 mg in 100 mls @ 400 mls/hr IV NOW STA Stop: 05/06/21 02:33 Last Infusion: 05/06/21 03:18 Dose: 0 mls/hr Documented by: [id number] Admin: 05/06/21 02:50 Dose: 400 mls/hr Documented by: [id number] Medical Decision Making Differential Diagnosis Differential diagnosis: Etiologies such as sepsis, UTI, pneumonia, bacteremia, metabolic process, electrolyte abnormalities, cardiac sources, intracerebral event, intra-abdominal process, toxicological process, neurologic process, as well as others were entertained. Laboratory Data Result diagrams: 05/06/21 01:57 05/06/21 03:04 Lab Results 05/06/21 05/06/21 05/06/21 Range/Units 01:57 01:57 01:57 WBC 15.22 H (4.8-10.8) K/uL RBC 3.58 L (4.2-5.4) M/uL Hgb 10.7 L (12.0-16.0) g/dL Hct 32.2 L (37-47) % MCV 89.9 (80-100) fL MCH 29.9 (25-34) pg MCHC 33.2 (32-36) g/dL RDW Std Deviation 43.8 (36.4-46.3) fL RDW Coeff of [place] 13.3 (11.5-14.5) % Plt Count 198 (130-400) K/uL MPV 8.8 (7.4-10.4) fL Immature Gran % (Auto) 0.5 % Neut % (Auto) 79.4 % Lymph % (Auto) 11.3 % [place] % (Auto) 8.7 % Eos % (Auto) 0.0 % Baso % (Auto) 0.1 % Neut # (Auto) 12.07 H (1.4-6.5) K/uL Lymph # (Auto) 1.72 (1.2-3.4) K/uL [place] # (Auto) 1.33 H (0.11-0.59) K/uL Eos # (Auto) 0.00 (0-0.5) K/uL Baso # (Auto) 0.02 (0-0.2) K/uL Immature Gran # (Auto) 0.08 H (0.00-0.02) K/uL PT Cancelled INR Cancelled APTT Cancelled PTT Ratio Cancelled VBG pH (7.36-7.41) VBG pCO2 (38-50) mmHg VBG pO2 mmHg VBG HCO3 mmol/L VBG O2 Saturation % VBG Base Excess mEq/L Barometric Pressure mm/Hg Sodium 130 L (136-145) mmol/L Potassium (3.5-5.1) mmol/L Chloride 100 (98-107) mmol/L Carbon Dioxide 23 (21-32) mmol/L Anion Gap 7 (3-11) BUN 29 H (6-23) mg/dl Creatinine 1.62 H (0.6-1.2) mg/dl Est Cr Clr Drug Dosing Not Reportable Est GFR ( Amer) 39.9 ml/min Est GFR (Non-Af Amer) 34.4 ml/min BUN/Creatinine Ratio 17.9 (10-20) Glucose 201 H (70-99(Fasting)) mg/dl Lactate (0.4-2.0) mmol/L Calcium 8.0 L (8.5-10.1) mg/dl Magnesium 1.8 (1.7-2.4) mg/dl Total Bilirubin 0.7 (0.2-1.0) mg/dl AST (13-39) U/L ALT 14 (7-52) U/L Alkaline Phosphatase 54 (34-104) U/L B-Natriuretic Peptide (0-100) pg/ml Total Protein 6.9 (6.0-8.3) gm/dl Albumin 3.5 (3.4-5.0) gm/dl Globulin 3.4 (2.5-4.0) gm/dl Albumin/Globulin Ratio 1.0 (0.9-2) Lipase 10 L (11-82) U/L Procalcitonin (0-0.5) ng/ml SARS-CoV-2 (PCR) (Negative) Influenza Type A (PCR) (Neg) Influenza Type B (PCR) (Neg) RSV (RT-PCR) (Neg) 05/06/21 05/06/21 05/06/21 Range/Units 01:57 02:13 02:35 WBC (4.8-10.8) K/uL RBC (4.2-5.4) M/uL Hgb (12.0-16.0) g/dL Hct (37-47) % MCV (80-100) fL MCH (25-34) pg MCHC (32-36) g/dL RDW Std Deviation (36.4-46.3) fL RDW Coeff of [place] (11.5-14.5) % Plt Count (130-400) K/uL MPV (7.4-10.4) fL Immature Gran % (Auto) % Neut % (Auto) % Lymph % (Auto) % [place] % (Auto) % Eos % (Auto) % Baso % (Auto) % Neut # (Auto) (1.4-6.5) K/uL Lymph # (Auto) (1.2-3.4) K/uL [place] # (Auto) (0.11-0.59) K/uL Eos # (Auto) (0-0.5) K/uL Baso # (Auto) (0-0.2) K/uL Immature Gran # (Auto) (0.00-0.02) K/uL PT INR APTT PTT Ratio VBG pH 7.38 (7.36-7.41) VBG pCO2 44 (38-50) mmHg VBG pO2 31 mmHg VBG HCO3 25 mmol/L VBG O2 Saturation < 60.0 % VBG Base Excess 0 mEq/L Barometric Pressure 736.2 mm/Hg Sodium (136-145) mmol/L Potassium (3.5-5.1) mmol/L Chloride (98-107) mmol/L Carbon Dioxide (21-32) mmol/L Anion Gap (3-11) BUN (6-23) mg/dl Creatinine (0.6-1.2) mg/dl Est Cr Clr Drug Dosing Est GFR ( Amer) ml/min Est GFR (Non-Af Amer) ml/min BUN/Creatinine Ratio (10-20) Glucose (70-99(Fasting)) mg/dl Lactate 1.0 (0.4-2.0) mmol/L Calcium (8.5-10.1) mg/dl Magnesium (1.7-2.4) mg/dl Total Bilirubin (0.2-1.0) mg/dl AST (13-39) U/L ALT (7-52) U/L Alkaline Phosphatase (34-104) U/L B-Natriuretic Peptide (0-100) pg/ml Total Protein (6.0-8.3) gm/dl Albumin (3.4-5.0) gm/dl Globulin (2.5-4.0) gm/dl Albumin/Globulin Ratio (0.9-2) Lipase (11-82) U/L Procalcitonin (0-0.5) ng/ml SARS-CoV-2 (PCR) NEGATIVE (Negative) Influenza Type A (PCR) Negative (Neg) Influenza Type B (PCR) Negative (Neg) RSV (RT-PCR) Negative (Neg) 05/06/21 05/06/21 05/06/21 Range/Units 02:35 03:04 03:04 WBC (4.8-10.8) K/uL RBC (4.2-5.4) M/uL Hgb (12.0-16.0) g/dL Hct (37-47) % MCV (80-100) fL MCH (25-34) pg MCHC (32-36) g/dL RDW Std Deviation (36.4-46.3) fL RDW Coeff of [place] (11.5-14.5) % Plt Count (130-400) K/uL MPV (7.4-10.4) fL Immature Gran % (Auto) % Neut % (Auto) % Lymph % (Auto) % [place] % (Auto) % Eos % (Auto) % Baso % (Auto) % Neut # (Auto) (1.4-6.5) K/uL Lymph # (Auto) (1.2-3.4) K/uL [place] # (Auto) (0.11-0.59) K/uL Eos # (Auto) (0-0.5) K/uL Baso # (Auto) (0-0.2) K/uL Immature Gran # (Auto) (0.00-0.02) K/uL PT 10.9 INR 1.1 APTT 33.4 H PTT Ratio 1.3 VBG pH (7.36-7.41) VBG pCO2 (38-50) mmHg VBG pO2 mmHg VBG HCO3 mmol/L VBG O2 Saturation % VBG Base Excess mEq/L Barometric Pressure mm/Hg Sodium (136-145) mmol/L Potassium 4.7 (3.5-5.1) mmol/L Chloride (98-107) mmol/L Carbon Dioxide (21-32) mmol/L Anion Gap (3-11) BUN (6-23) mg/dl Creatinine (0.6-1.2) mg/dl Est Cr Clr Drug Dosing Est GFR ( Amer) ml/min Est GFR (Non-Af Amer) ml/min BUN/Creatinine Ratio (10-20) Glucose (70-99(Fasting)) mg/dl Lactate (0.4-2.0) mmol/L Calcium (8.5-10.1) mg/dl Magnesium (1.7-2.4) mg/dl Total Bilirubin (0.2-1.0) mg/dl AST 17 (13-39) U/L ALT (7-52) U/L Alkaline Phosphatase (34-104) U/L B-Natriuretic Peptide (0-100) pg/ml Total Protein (6.0-8.3) gm/dl Albumin (3.4-5.0) gm/dl Globulin (2.5-4.0) gm/dl Albumin/Globulin Ratio (0.9-2) Lipase (11-82) U/L Procalcitonin 2.72 H (0-0.5) ng/ml SARS-CoV-2 (PCR) (Negative) Influenza Type A (PCR) (Neg) Influenza Type B (PCR) (Neg) RSV (RT-PCR) (Neg) 05/06/21 Range/Units 03:04 WBC (4.8-10.8) K/uL RBC (4.2-5.4) M/uL Hgb (12.0-16.0) g/dL Hct (37-47) % MCV (80-100) fL MCH (25-34) pg MCHC (32-36) g/dL RDW Std Deviation (36.4-46.3) fL RDW Coeff of [place] (11.5-14.5) % Plt Count (130-400) K/uL MPV (7.4-10.4) fL Immature Gran % (Auto) % Neut % (Auto) % Lymph % (Auto) % [place] % (Auto) % Eos % (Auto) % Baso % (Auto) % Neut # (Auto) (1.4-6.5) K/uL Lymph # (Auto) (1.2-3.4) K/uL [place] # (Auto) (0.11-0.59) K/uL Eos # (Auto) (0-0.5) K/uL Baso # (Auto) (0-0.2) K/uL Immature Gran # (Auto) (0.00-0.02) K/uL PT INR APTT PTT Ratio VBG pH (7.36-7.41) VBG pCO2 (38-50) mmHg VBG pO2 mmHg VBG HCO3 mmol/L VBG O2 Saturation % VBG Base Excess mEq/L Barometric Pressure mm/Hg Sodium (136-145) mmol/L Potassium (3.5-5.1) mmol/L Chloride (98-107) mmol/L Carbon Dioxide (21-32) mmol/L Anion Gap (3-11) BUN (6-23) mg/dl Creatinine (0.6-1.2) mg/dl Est Cr Clr Drug Dosing Est GFR ( Amer) ml/min Est GFR (Non-Af Amer) ml/min BUN/Creatinine Ratio (10-20) Glucose (70-99(Fasting)) mg/dl Lactate (0.4-2.0) mmol/L Calcium (8.5-10.1) mg/dl Magnesium (1.7-2.4) mg/dl Total Bilirubin (0.2-1.0) mg/dl AST (13-39) U/L ALT (7-52) U/L Alkaline Phosphatase (34-104) U/L B-Natriuretic Peptide 124 H (0-100) pg/ml Total Protein (6.0-8.3) gm/dl Albumin (3.4-5.0) gm/dl Globulin (2.5-4.0) gm/dl Albumin/Globulin Ratio (0.9-2) Lipase (11-82) U/L Procalcitonin (0-0.5) ng/ml SARS-CoV-2 (PCR) (Negative) Influenza Type A (PCR) (Neg) Influenza Type B (PCR) (Neg) RSV (RT-PCR) (Neg) MDM Narrative Physical exam and history were performed. Nursing notes, EMR, and Medication List were personally reviewed. Patient appears to have fever for the past 1 day. The patient is able to answer questions appropriately here in the ER. Her presentation is concerning due to her history of HIV and diabetes. IV access was established and labs were obtained. She was hydrated with 2 L normal saline. She was given IV daptomycin, IV ertapenem, and IV Tylenol. Blood cultures were performed. An order was placed for continuous cardiac monitoring. The monitor shows a rate of 92 with normal sinus rhythm. The patient's blood work is as above and was reviewed. She does have an elevated white blood cell count of 15,000. She is mildly anemic at 10.7. She does not have significant electrolyte imbalance. BUN is 29 creatinine is 1.62. Glucose is 201. VBG is normal. Lactic is negative. Her pro calcitonin is elevated at 2.72. Covid and flu are both negative. Overall the patient does not appear well for discharge home. Her clinical picture of sepsis with being immune compromised is highly concerning. The case was discussed with both my attending as well as the on-call [facility] hospitalist. Please see the hospitalist dictation for further patient course, plan, and disposition. The chart was completed utilizing [employer] Speech Voice Recognition Software. Grammatical errors, random word insertions, pronoun errors, and incomplete sentences are an occasional consequence of this system due to software limitations, ambient noise, and hardware issues. Any formal questions or concerns about the content, text, or information contained within the body of this dictation should be directly addressed to the provider for clarification. . Impression & Plan Sepsis, HIV (human immunodeficiency virus infection), Diabetes, Immunocompromised Discharge Plan Visit Data Chief Complaint: Illness Stated Complaint: Illness ED Provider: Jane Roy ED Midlevel Provider: Marques Norman Discharge Problem: Sepsis, HIV (human immunodeficiency virus infection), Diabetes, Immunocompromised Forms Stand Alone Forms: My [facility] [email or web address] Prescriptions Prescriptions: No Action nitroglycerin 0.4 mg tablet, sublingual 0.4 mg SL UD PRN (Reason: Chest Pain) RF: 0 metformin 500 mg tablet 500 mg PO BIDM RF: 0 hydroxyzine HCl 50 mg tablet 50 mg PO TID RF: 0 fluvoxamine 100 mg tablet 100 mg PO BID RF: 0 Tivicay 50 mg tablet 50 mg PO HS RF: 0 [place] 200-25 mg tablet 1 tab PO HS RF: 0 lidocaine 5 % Adhesive Patch,Medicated 1 patch transdermal QAM Qty: 5 RF: 0 risperidone 0.5 mg tablet 0.5 mg PO TID RF: 0 clonazepam 0.5 mg tablet 0.5 mg PO BID RF: 0 aspirin [Aspirin For Children] 81 mg Tablet,Chewable 81 mg PO DAILY RF: 0 alfuzosin 10 mg tablet extended release 24 hr 10 mg PO DAILY RF: 0 Therems-M (old) Tablet 1 tab PO DAILY RF: 0 cyanocobalamin (vitamin B-12) 500 mcg Tablet, Sublingual 500 mcg SUBLINGUAL DAILY RF: 0 silver sulfadiazine [Silvadene] 1 % Cream 1 applic TOPICAL DAILY RF: 0 acetaminophen [Tylenol] 325 mg Tablet 650 mg PO Q4H MDD 3 GRAMS/24 HOURS PRN (Reason: FEVER/PAIN) RF: 0 loperamide [Imodium] 2 mg Capsule 2 mg PO Q6H PRN (Reason: Diarrhea) RF: 0 famotidine 20 mg Tablet 20 mg PO BID RF: 0 buspirone [BuSpar] 10 mg Tablet 20 mg PO BID RF: 0 losartan 25 mg Tablet 25 mg PO DAILY RF: 0 insulin aspart U-100 [Novolog Flexpen U-100 Insulin] 100 unit/mL (3 mL) Insulin Pen 5 unit SUBCUT ACHS RF: 0 trospium 20 mg Tablet 20 mg PO BID RF: 0 Basaglar KwikPen U-100 Insulin 100 unit/mL (3 mL) Insulin Pen 15 unit SUBCUT DAILY RF: 0 guaifenesin [Mucinex] 600 mg Tablet Extended Release 12hr 600 mg PO Q12H PRN (Reason: Congestion) RF: 0 Referrals Referrals: Rosita Kim [Primary Care Provider] -
--- NOTE | 2021-05-06 06:48 | XRay Report ---
XR chest 1V portable CLINICAL HISTORY: Fever. COMPARISON STUDY: Chest radiograph February 13, 2021. FINDINGS: Patient is mildly rotated. Allowing for patient rotation, cardiomediastinal silhouette is s table. No pneumothorax or pleural effusion. No consolidation is identified. Interstitial prominence i s unchanged. Degenerative changes of the left. Chronic deformity left humeral head are incidentally n oted. IMPRESSION: No acute cardiopulmonary findings. ACT 112: Negative or not required by law. Electronically signed by: Valentino Beckman M.D. 05/06/2021 6:46 AM
[2021-05-06] MEDS ORDERED: KETOROLAC TROMETHAMINE 15 MG/ML VIAL IV ONE (06:59)
[2021-05-06] MEDS ORDERED: KETOROLAC TROMETHAMINE 15 MG/ML VIAL ONE (07:03)
[2021-05-06] MEDS: ACETAMINOPHEN 325 MG TAB PO PRN ×2 (08:00→20:04)
[2021-05-06] MEDS ORDERED: ERTAPENEM SODIUM 10 ML IV SCH (09:00)
--- NOTE | 2021-05-06 10:16 | History and Physical Report ---
DATE OF ADMISSION: 05/06/2021. CHIEF COMPLAINT: Hypotension, cellulitis. HISTORY OF PRESENT ILLNESS: This is a 60-year-old female with past medical history significant for type 2 diabetes, diabetic retinopathy, history of multiple thyroid nodules, vitamin D deficiency, vitamin B12 deficiency, morbid obesity, history of UTI, urge incontinence, anemia and chronic kidney disease, history of MRSA infection, HIV positive, depression, anxiety, history of DVT, status post left above-knee amputation, lives in a longterm, presents with hypotension.The patient says, she was sent in because she was having low blood pressure. The patient denies any complaints. Her blood pressure was low when she came. Initial blood pressure was 84/51. With fluid resuscitation, it is improved to 100/66, somewhat drowsy, but answering all the questions appropriately. Denies any headache, denies any neck pain. No blurred visions, no earache, no runny nose, no sore throat. No cough. Denies any fever or chills. No chest pain or shortness of breath, no nausea, no vomiting, no abdominal pain. Normal bowel and bladder movements. On exam, she was found to have erythema and warm on touching of the right lower extremity. Right knee is in a brace; there is a small wound for which a bandage is placed, but no erythema or drainage from that wound is seen. ALLERGIES: AUGMENTIN, CLAMS, CEFTRIAXONE, LEVAQUIN, PENICILLINS, ROSIGLITAZONE, VANCOMYCIN. PAST MEDICAL HISTORY: As mentioned above. PAST SURGICAL HISTORY: Left transmetatarsal amputation, right foot amputation for chronic osteomyelitis, left knee replacement, bilateral carpal tunnel surgery, bilateral knee surgeries for bone chips, spinal fusion surgery, left above-knee amputation. MEDICATIONS: The patient is on Tylenol 650 mg p.o. q.4 hours p.r.n., alfuzosin 10 mg p.o. daily, aspirin 81 mg p.o. daily, buspirone 20 mg p.o. b.i.d., Klonopin 0.5 mg p.o. b.i.d., vitamin B12 500 mcg sublingual daily, Descovy 1 tablet at bedtime, famotidine 20 mg p.o. b.i.d., fluvoxamine 100 mg p.o. b.i.d., Mucinex 600 mg p.o. b.i.d. p.r.n., hydroxyzine 50 mg p.o. t.i.d., insulin NovoLog FlexPen 5 units subcutaneous a.c. and at bedtime, insulin glargine 15 units subcutaneous daily, lidocaine patch prn a.m., Imodium 2 mg p.o. q.6 hours p.r.n., losartan 25 mg p.o. daily, metformin 500 mg p.o. b.i.d., multivitamins 1 tablet daily, nitroglycerin 0.4 mg sublingual p.r.n., risperidone 0.5 mg p.o. t.i.d., silver sulfadiazine topical daily, Tivicay 50 mg p.o. at bedtime, trospium 20 mg p.o. b.i.d. FAMILY HISTORY: Significant for mother has breast cancer, diabetes. Father has hypertension, diabetes. SOCIAL HISTORY: Quit smoking in 1983. Smoked 0.1 pack a day for 2 years. No alcohol use. No drug use. REVIEW OF SYSTEMS: As per HPI. Rest of the review of systems is negative. PHYSICAL EXAMINATION: GENERAL: The patient is morbidly obese, not in acute distress. VITAL SIGNS: Temperature 38, T-max 38, pulse 98, blood pressure was 84/51 when came in, currently 100/66, oxygen 98% on room air. HEENT: Pupils equal, round and reactive to light. Oral mucosa dry. NECK: No JVD, no neck masses. CARDIOVASCULAR: S1 and S2 heard. Regular rate and rhythm. No murmur, no gallop. RESPIRATORY SYSTEM: Normal AP diameter. No accessory muscle use. No wheezing, no crackles. ABDOMEN: Soft, bowel sounds present, nontender, no distention. CENTRAL NERVOUS SYSTEM: Cranial nerves II through XII are grossly intact, nonfocal. EXTREMITIES: Left above-knee amputation and right lower extremity erythematous and warm to palpation from below knee. Right knee is in a brace for a small superficial wound of the right knee with bandages in place, but no active drainage or erythema seen around the wound. SKIN: Erythematous changes in bilateral groins. LABORATORY DATA: WBC 15.2, hemoglobin 10.7, hematocrit 32.2, platelets 198. PT 10.9, INR 1.1, APTT 33.4. Venous blood gasses; pH of 7.38, pCO2 of 44. Sodium 130, potassium 4.7, chloride 100, bicarbonate 23, BUN 29, creatinine 1.6, serum glucose 201. Lactate 1, calcium 8, magnesium 1.8, total bilirubin 0.7, AST 77, ALT 14, alkaline phosphatase 54. BNP 124. Lipase 10. Procalcitonin 2.7. SARS-CoV-2 PCR negative. Influenza A and B PCR negative. RSV PCR negative. IMAGING: Chest x-ray: No acute findings noted. ASSESSMENT AND PLAN: This is a 60-year-old female who presents from longterm with hypotension, found to be possible early sepsis with cellulitis. 1. Sepsis, possibly secondary to cellulitis. The patient has elevated white count, hypotension, fever, tachycardia. Lactate is normal at 1. Procalcitonin is elevated at 2.72. Right lower extremity below knee is erythematous and warm to palpation. Emergency Room empirically started on daptomycin and Invanz, which will be continued. Follow the cultures. Follow UA.She had a fluid bolus in the Emergency Room, we will continue with normal saline at 125 mL per hour and monitor the blood pressure, closely monitor in telemetry floor. Monitor for response. 2. Acute kidney injury on chronic kidney disease stage III. Baseline creatinine seems to be around 1.5, currently 1.6. Avoid nephrotoxic agents. Follow the laboratories. Getting fluids. We will hold the losartan. 3. History of diabetes. Hold metformin. Continue long-acting insulin, we will place on insulin sliding scale. Follow the blood sugars. 4. History of human immunodeficiency virus. Continue her home medications. 5. History of depression and anxiety. Continue Klonopin, buspirone, risperidone, and fluvoxamine. 6. Morbid obesity, needs counseling. 7. Anemia of chronic kidney disease. Hemoglobin is 10.7. We will follow the laboratories. 8. Hyponatremia. Sodium 130. Getting fluids. We will follow the laboratories. 9.HTN.Holding losartan for hypotension and risa. Will Follow BP. 10. Deep venous thrombosis prophylaxis: We will place her on heparin subcutaneously. DISPOSITION: Closely monitor in the tele floor. Level 1, full code. Expect to discharge back to longterm when stable. Social service to help with discharge planning. Job ID: [id number] [facility]
[2021-05-06] MEDS ORDERED: ONDANSETRON INJ 2 MG/ML 2 ML VIAL IV PRN (10:37)
[2021-05-06] MEDS ORDERED: guaiFENesin 600 MG TABCR PO PRN (10:37)
[2021-05-06] MEDS ORDERED: LOPERAMIDE HCL 2 MG CAP PO PRN (10:37)
[2021-05-06] MEDS ORDERED: ACETAMINOPHEN 325 MG TAB PO PRN (10:37)
[2021-05-06] MEDS ORDERED: NITROGLYCERIN SL 0.4 MG/TAB TAB SL PRN ×2 (10:37)
[2021-05-06] MEDS: SODIUM CHLORIDE 0.9% 1000ML 1,000 ML IV SCH ×2 (11:00→20:00)
[2021-05-06] MEDS ORDERED: AZTREONAM 2,000 MG in DEXTROSE 5% 100 ML IV ONE (11:15)
[2021-05-06] MEDS: INSULIN ASPART PER UNIT SC SCH ×4 (12:00→20:44)
--- NOTE | 2021-05-06 12:26 | Ultrasound Report ---
US venous doppler LE RT HISTORY: 60 years-old Female erythema . dvt? Acute pain and swelling of the lower legs COMPARISON: Duplex venous Doppler study 03/20/2015 TECHNIQUE: Multiple real-time sonographic images of the right lower extremity deep venous structures were obtained assessing grayscale appearance, color and spectral flow. FINDINGS: Normal flow, compressibility, phasicity and augmentation. Limited exam secondary to patient body habi tus. The calf veins are not well visualized. IMPRESSION: No sonographic evidence of deep venous thrombosis. ACT 112: Negative or not required by law. The above report was generated using voice recognition software. It may contain grammatical, syntax o r spelling errors. Electronically signed by: Mal Armenta M.D. 05/06/2021 12:25 PM
[2021-05-06] MEDS: NYSTATIN CR 15 GM TUBE EXT SCH ×2 (12:44→20:56)
[2021-05-06] MEDS: fluvoxaMINE MALEATE 50 MG TAB PO SCH ×2 (12:46→20:55)
[2021-05-06] MEDS: ASPIRIN 81 MG CHEW PO SCH (12:47)
[2021-05-06] MEDS: FAMOTIDINE 20 MG TAB PO SCH ×2 (12:48→20:55)
[2021-05-06] MEDS: busPIRone 5 MG TAB PO SCH ×2 (12:49→20:55)
[2021-05-06] MEDS: SILVER SULFADIAZINE 1% CR 50 GM JAR TOP SCH (12:51)
[2021-05-06] MEDS: ALFUZOSIN HCL 10 MG TAB PO SCH (12:51)
[2021-05-06] MEDS: clonazePAM 0.5 MG TAB PO SCH ×2 (12:54→20:55)
[2021-05-06] MEDS: INSULIN GLARGINE SOLOSTAR 100 UNITS/ML 3 ML PEN SQ SCH (13:18)
--- NOTE | 2021-05-06 13:46 | Ultrasound Report ---
ULTRASOUND ABDOMEN COMPLETE CLINICAL HISTORY: Generalized abdominal pain. COMPARISON STUDY: Abdominal CT dated 08/27/2012. TECHNIQUE: Real-time, grayscale, and color flow sonography of the abdomen was performed. Images are r eviewed in the transverse and longitudinal planes. Examination is degraded by large body habitus. FINDINGS: Liver: The liver is enlarged and demonstrates heterogeneously increased echotexture consistent with h epatic steatosis. There is no intrahepatic biliary ductal dilatation. The main portal vein is patent. Gallbladder: The gallbladder is normal in appearance. No gallstones are identified. There is no gallb ladder wall thickening or pericholecystic fluid. A sonographic Nielsen's sign is reportedly absent. Th e common bile duct measures up to 0.5 cm in diameter. Pancreas: Nonvisualized due to overlying bowel gas. Spleen: The spleen is normal in size and echotexture, measuring 12.1 cm in length. Kidneys: The kidneys are not well visualized due to large body habitus and overlying bowel gas. Image d renal cortex is grossly unremarkable. Abdominal vasculature: The abdominal aorta and IVC are not well-visualized due to overlying bowel gas . Ascites: None. IMPRESSION: 1. Hepatomegaly and hepatic steatosis. 2. No gallstones are seen. 3. The pancreas, kidneys, aorta, and IVC are not well-visualized due to large body habitus and overly ing bowel gas. ACT 112: Negative or not required by law. Electronically signed by: Lincoln Caceres M.D. 05/06/2021 1:45 PM
[2021-05-06] MEDS: CEROVITE ADV FORMULA TAB PO SCH (14:30)
[2021-05-06] MEDS: CYANOCOBALAMIN (B-12) 500 MCG TABLET PO SCH (14:30)
[2021-05-06] MEDS: OXYBUTYNIN CHLORIDE 5 MG TAB PO SCH ×2 (14:30→20:55)
[2021-05-06] MEDS: risperiDONE 0.5 MG TABLET PO SCH ×2 (14:31→20:55)
[2021-05-06] MEDS: hydrOXYzine HCl 25 MG TAB PO SCH ×2 (14:31→22:02)
[2021-05-06] MEDS: HEPARIN SOD 5,000 UNIT/0.5 ML VIAL SQ SCH ×2 (14:31→20:56)
--- NOTE | 2021-05-06 16:56 | Hospitalist Progress Note ---
Date of Service May 06, 2021 Assessment & Plan (1) Sepsis: (2) Immunocompromised: (3) Bacteremia: Plan: 60-year-old female with past medical history of type 2 diabetes, diabetic retinopathy, HIV under treatment, multiple thyroid nodules, vitamin D deficiency, vitamin B12 deficiency, morbid obesity, UTI, urge incontinence, anemia and chronic kidney disease, MRSA infection, depression, anxiety, DVT, status post left above-knee amputation, lives in a fci, presents with hypotension 05/06. She is being managed for the followin. Sepsis 2/2 below 1. Complicated UTI 1. RLE cellulitis 1. Bacteremia -- GNB At admission, tachycardic, temperature above 38C, lactate WNL, WBC elevated at 15.2 2K, procalcitonin elevated 2.72, hypotensive 84/51 and responded to fluid resuscitation. Patient received daptomycin and Invanz in the ED. Upon presentation, Right lower extremity below knee is erythematous and warm to palpation. Admitting RLE venous Doppler: Negative for DVT Admitting urinalysis suggestive for UTI Admitting urine culture: Pending Admitting blood culture: Gram-negative bacilli, follow-up final results Continue with daptomycin 05/05 and aztreonam 05/06 Hold antihypertensives (losartan), continue with IV fluid, continue with diet. ID consult #. Hyponatremia Presentation sodium 130, likely secondary to poor appetite prior to arrival Continue monitor sodium, increase protein content in diet, patient getting IV fluids. 2. Acute kidney injury on chronic kidney disease stage III. Baseline creatinine seems to be around 1.5, currently 1.6. Avoid nephrotoxic agents. Follow the laboratories. Getting fluids. 3. History of diabetes. Hold metformin. Continue long-acting insulin, on insulin sliding scale. 4. History of human immunodeficiency virus. Continue her home medications. Discussed with pharmacy, we do not carry her home med Bryany, son to bring her meds to hospital, resume as soon as possible. 5. History of depression and anxiety. Continue Klonopin, buspirone, risperidone, and fluvoxamine. 6. Morbid obesity, needs counseling. #. DVT prophylaxis: Heparin CODE STATUS: DNR/DNI Admission and Anticipated Discharge Date Admission Date: May 06, 2021 Subjective Patient seen and examined at bedside for follow-up of sepsis secondary to cellulitis and GEGE over CKD and bacteremia. Patient lying in bed, on room air, NAD, no new acute events overnight. Patient has T-max of 39.5C, is on antibiotic, patient reports feeling better. Patient denies any cough/sore throat/headache/dizziness/chest pain/palpitations/belly pain/problems with bowel habits/other review of symptoms. Physical Exam Physical Exam: GENERAL: Alert and oriented x3. NAD, on RA. HEENT: No pallor, no icterus. Pupils equal, round and reactive to light. Oral mucosa moist. NECK: No JVD, no neck masses. HEART: S1 and S2 heard. Regular rate and rhythm. Systolic murmur over aortic and pulmonic area, no gallop. RESPIRATORY SYSTEM: Normal AP diameter. No accessory muscle use. No wheezing, no crackles. ABDOMEN: Soft, bowel sounds present, RUQ and LUQ tenderness, no distention. CENTRAL NERVOUS SYSTEM: No facial droop. Speech is clear. Obeys simple commands. Moves extremities. EXTREMITIES: RLE trace edema with erythema and warmth noted, LLEAKA stump n oted. Rt knee brace in situ. Results & Data Results & Data ([facility]) Vital Signs (Past 12 Hours) Vital Signs Temp Pulse Pulse Resp BP BP Pulse Ox 05/06/21 13:42 97 H 20 108/58 L 95 05/06/21 12:55 94 H 20 94/44 L 95 05/06/21 10:49 37 C 05/06/21 10:37 05/06/21 10:30 102 H 20 119/59 L 95 05/06/21 08:36 37.9 C H 109 H 20 121/58 L 100 05/06/21 08:00 39.3 C H 114 H 20 110/65 93 05/06/21 07:41 114 H 20 134/89 93 05/06/21 07:15 39.5 C H 117 H 20 93 05/06/21 07:00 38.1 C H 125 H 20 133/76 94 05/06/21 06:45 37.5 C 05/06/21 06:30 120 H 37 H 131/110 H 92 05/06/21 06:00 102 H 25 H 97 05/06/21 05:45 93 H 24 94 05/06/21 05:30 92 H 25 H 93 05/06/21 05:15 91 H 25 H 94/59 L 94 05/06/21 05:07 92 H 29 H 106/59 L 95 05/06/21 05:00 95 H 23 96 05/06/21 04:45 97 H 17 98 Pulse Ox 05/06/21 13:42 05/06/21 12:55 05/06/21 10:49 05/06/21 10:37 95 05/06/21 10:30 05/06/21 08:36 05/06/21 08:00 05/06/21 07:41 05/06/21 07:15 05/06/21 07:00 05/06/21 06:45 05/06/21 06:30 05/06/21 06:00 05/06/21 05:45 05/06/21 05:30 05/06/21 05:15 05/06/21 05:07 05/06/21 05:00 05/06/21 04:45
[2021-05-06] MEDS ORDERED: DOLUTEGRAVIR SODIUM 50 MG TAB PO SCH (21:00)
[2021-05-06] MEDS: AZTREONAM 2,000 MG in DEXTROSE 5% 100 ML IV SCH (22:34)
[2021-05-06] MEDS ORDERED: DAPTOmycin 475 MG in SYRINGE 0 ML IV SCH (23:00)
[2021-05-07] MEDS: SODIUM CHLORIDE 0.9% 1000ML 1,000 ML IV SCH ×2 (03:57→13:02)
[2021-05-07] MEDS: AZTREONAM 2,000 MG in DEXTROSE 5% 100 ML IV SCH ×3 (05:05→20:12)
[2021-05-07] MEDS: HEPARIN SOD 5,000 UNIT/0.5 ML VIAL SQ SCH ×3 (05:06→21:57)
[2021-05-07] MEDS: ACETAMINOPHEN 325 MG TAB PO PRN ×2 (05:40→20:16)
[2021-05-07 07:00] LABS: Hemoglobin 9.9 g/dL (12.0-16.0); Mean Corpuscular Hemoglobin 28.9 pg (25-34); Mean Corpuscular Hgb Conc 31.9 g/dL (32-36); Mean Corpuscular Volume 90.6 fL (80-100); Mean Platelet Volume 9.3 fL (7.4-10.4); Platelet Count 165 K/uL (130-400); RDW Coefficient of Variation 13.7 % (11.5-14.5); RDW Standard Deviation 45.4 fL (36.4-46.3); Red Blood Count 3.42 M/uL (4.2-5.4); White Blood Count 11.49 K/uL (4.8-10.8)
[2021-05-07 07:22] LABS: BUN Creatinine Ratio 17.5 (10-20); Calcium 7.3 mg/dl (8.5-10.1); Creatinine Clr Calc Pharmacy 53.8 ml/min; Est GFR (African American) 46.3 ml/min; Magnesium 1.8 mg/dl (1.7-2.4); Potassium 4.3 mmol/L (3.5-5.1)
[2021-05-07 07:44] LABS: Estimated Average Glucose 154 mg/dl
[2021-05-07] MEDS: INSULIN ASPART PER UNIT SC SCH ×4 (08:39→20:17)
[2021-05-07] MEDS: INSULIN GLARGINE SOLOSTAR 100 UNITS/ML 3 ML PEN SQ SCH (08:39)
[2021-05-07] MEDS: CYANOCOBALAMIN (B-12) 500 MCG TABLET PO SCH (08:42)
[2021-05-07] MEDS: OXYBUTYNIN CHLORIDE 5 MG TAB PO SCH ×2 (08:42→20:13)
[2021-05-07] MEDS: busPIRone 5 MG TAB PO SCH ×2 (08:42→20:15)
[2021-05-07] MEDS: FAMOTIDINE 20 MG TAB PO SCH ×2 (08:43→20:15)
[2021-05-07] MEDS: risperiDONE 0.5 MG TABLET PO SCH ×3 (08:43→20:12)
[2021-05-07] MEDS: hydrOXYzine HCl 25 MG TAB PO SCH ×3 (08:43→20:14)
[2021-05-07] MEDS: fluvoxaMINE MALEATE 50 MG TAB PO SCH ×2 (08:44→20:14)
[2021-05-07] MEDS: CEROVITE ADV FORMULA TAB PO SCH (08:44)
[2021-05-07] MEDS: ASPIRIN 81 MG CHEW PO SCH (08:45)
[2021-05-07] MEDS: ALFUZOSIN HCL 10 MG TAB PO SCH (08:45)
[2021-05-07] MEDS: SILVER SULFADIAZINE 1% CR 50 GM JAR TOP SCH (08:50)
[2021-05-07] MEDS: NYSTATIN CR 15 GM TUBE EXT SCH ×2 (08:50→20:15)
[2021-05-07] MEDS: clonazePAM 0.5 MG TAB PO SCH ×2 (08:51→20:15)
[2021-05-07] MEDS ORDERED: CYANOCOBALAMIN (B-12) 500 MCG TABLET PO SCH (11:15)
--- NOTE | 2021-05-07 18:12 | Hospitalist Progress Note ---
Date of Service May 07, 2021 Assessment & Plan (1) Sepsis: (2) Immunocompromised: (3) Bacteremia: Plan: 60-year-old female with past medical history of type 2 diabetes, diabetic retinopathy, HIV under treatment, multiple thyroid nodules, vitamin D deficiency, vitamin B12 deficiency, morbid obesity, UTI, urge incontinence, anemia and chronic kidney disease, MRSA infection, depression, anxiety, DVT, status post left above-knee amputation, lives in a detention, presents with hypotension 05/06. She is being managed for the followin. Sepsis / below 1. Complicated UTI 1. RLE cellulitis 1. Bacteremia -- GNB At admission, tachycardic, temperature above 38C, lactate WNL, WBC elevated at 15.2 2K, procalcitonin elevated 2.72, hypotensive 84/51 and responded to fluid resuscitation. Patient received daptomycin and Invanz in the ED. Upon presentation, Right lower extremity below knee is erythematous and warm to palpation. Admitting RLE venous Doppler: Negative for DVT Admitting urinalysis suggestive for UTI Admitting urine culture: Pending Admitting blood culture: Gram-negative bacilli, follow-up final results Pt getting better, temp better controlled. Continue with aztreonam 05/06, follow-up with culture and sensitivity results. continue to hold antihypertensives (losartan), DC IV fluid, continue with diet. ID consult, f/u w/ HIV provider upon DC, appreciate recs. #. Hyponatremia Presentation sodium 130, likely secondary to poor appetite prior to arrival Improving Continue monitor sodium, increase protein content in diet, patient getting IV fluids. 2. Acute kidney injury on chronic kidney disease stage III. Baseline creatinine seems to be around 1.3, getting better. Avoid nephrotoxic agents. Follow the laboratories. 3. History of diabetes. Hold metformin. Continue long-acting insulin, on insulin sliding scale. 4. History of human immunodeficiency virus. Continue her home medications. 05/07 Discussed with pharmacy, we do not carry her home med Descjasony, son to bring her meds to hospital, resume as soon as possible. 05/07 son didn't bring the meds today, called her son over the phone, left voice message to bring the medications to the hospital as soon as possible and contact with the nursing desk. Patient aware of the situation. Follow-up with HIV provider upon discharge. 5. History of depression and anxiety. Continue Klonopin, buspirone, risperidone, and fluvoxamine. 6. Morbid obesity, needs counseling. #. DVT prophylaxis: Heparin CODE STATUS: DNR/DNI Admission and Anticipated Discharge Date Admission Date: May 06, 2021 Subjective Patient seen and examined at bedside for follow-up of sepsis secondary to cellulitis and GEGE over CKD and bacteremia. Patient lying in bed, on room air, NAD, no new acute events overnight. Patient's temperature is getting better on antibiotic, patient reports feeling better. Patient reports chronic right knee pain. Patient denies any cough/sore throat/headache/dizziness/chest pain/palpitations/belly pain/problems with bowel habits/other review of symptoms. Physical Exam Physical Exam: GENERAL: Alert and oriented x3. NAD, on RA. HEENT: No pallor, no icterus. Pupils equal, round and reactive to light. Oral mucosa moist. NECK: No JVD, no neck masses. HEART: S1 and S2 heard. Regular rate and rhythm. Systolic murmur over aortic and pulmonic area, no gallop. RESPIRATORY SYSTEM: Normal AP diameter. No accessory muscle use. No wheezing, no crackles. ABDOMEN: Soft, bowel sounds present, RUQ and LUQ tenderness, no distention. CENTRAL NERVOUS SYSTEM: No facial droop. Speech is clear. Obeys simple commands. Moves extremities. EXTREMITIES: RLE trace edema with erythema and warmth noted, LLEAKA stump noted. Rt knee brace in situ. Results & Data Results & Data ([facility]) Vital Signs (Past 12 Hours) Vital Signs Temp Pulse Pulse Resp BP Pulse Ox 05/07/21 16:08 37.3 C 92 H 18 129/82 93 05/07/21 15:00 90 05/07/21 11:51 37.2 C 94 H 20 146/83 H 93 05/07/21 08:00 107 H 05/07/21 07:58 36.8 C 101 H 18 123/78 90
[2021-05-08] MEDS: AZTREONAM 2,000 MG in DEXTROSE 5% 100 ML IV SCH ×3 (03:26→19:40)
[2021-05-08] MEDS: HEPARIN SOD 5,000 UNIT/0.5 ML VIAL SQ SCH ×3 (05:14→20:27)
[2021-05-08 06:30] LABS: Hematocrit (blood only) 30.7 % (37-47); Mean Corpuscular Hemoglobin 29.3 pg (25-34); Mean Corpuscular Hgb Conc 32.6 g/dL (32-36); Mean Platelet Volume 9.4 fL (7.4-10.4); Platelet Count 174 K/uL (130-400); RDW Coefficient of Variation 13.5 % (11.5-14.5); RDW Standard Deviation 44.7 fL (36.4-46.3); Red Blood Count 3.41 M/uL (4.2-5.4); White Blood Count 7.44 K/uL (4.8-10.8)
[2021-05-08 06:53] LABS: Calcium 7.9 mg/dl (8.5-10.1); Creatinine Clr Calc Pharmacy 59.1 ml/min; Est GFR (African American) 56.2 ml/min; Est GFR (Non-African American) 48.5 ml/min; Potassium 4.7 mmol/L (3.5-5.1)
--- NOTE | 2021-05-08 07:59 | CT Scan Report ---
CT SCAN OF THE ABDOMEN AND PELVIS WITHOUT IV CONTRAST CLINICAL HISTORY: Bacteremia. COMPARISON STUDY: Abdominal CT dated 08/27/2012. Abdominal ultrasound dated 05/06/2021. TECHNIQUE: CT scan of the abdomen and pelvis is performed from the lung bases to the proximal femora. Images are reviewed in the axial, sagittal, and coronal planes. IV contrast was not administered for this examination. Note that the examination is significantly suboptimal without IV contrast. Oral co ntrast was utilized. The examination is degraded by large body habitus, and by streak artifact from t he body wall abutting the CT gantry. There is also motion artifact. A dose lowering technique was uti lized adhering to the principles of ALARA. CT DOSE: 2104.80 mGy.cm FINDINGS: Lung bases: The heart is normal in size and without pericardial effusion. There are trace pleural eff usions with dependent atelectasis. Liver: The unenhanced liver is normal in size, contour, and attenuation. There is no intrahepatic linda iary ductal dilatation. Gallbladder: Unremarkable. Spleen: Normal in size and attenuation. Pancreas: The unenhanced pancreas is atrophic and grossly unremarkable. Adrenal glands: Unremarkable. Kidneys: The unenhanced kidneys demonstrate cortical atrophy and are without hydronephrosis. There is a punctate nonobstructing left renal calculus. No right renal calculi are identified. There is no ev idence of contour deforming renal mass lesion. Abdominal vasculature: The abdominal aorta is normal in course and caliber noting mild to moderate at herosclerotic calcification. Bowel: There is mild colonic diverticulosis without CT evidence of acute diverticulitis. Moderate fec al retention is seen throughout the colon. There is no bowel obstruction. Enteric contrast reaches th e right colon. The appendix is well-visualized and normal. Peritoneum: There is no intraperitoneal free air or abdominal ascites. There is diastases of the rect us musculature with a fat-containing umbilical hernia. Lymphadenopathy: None. Pelvic viscera: The bladder is decompressed around a [place] catheter and not well evaluated. The uteru s is diminutive versus surgically absent. No adnexal lesion is seen. Large soft tissue calcifications are noted in the buttock bilaterally. Skeletal structures: The skeletal structures are osteopenic. There is lumbosacral spondylosis with ev idence of L3-S1 spinal fusion. There is a chronic compression deformity of L1. No lytic or blastic le sions are seen. IMPRESSION: 1. No acute infectious or inflammatory findings are identified in the abdomen or pelvis. 2. Trace pleural effusions. 3. Mild colonic diverticulosis without CT evidence of acute diverticulitis. 4. Additional findings as above. ACT 112: Negative or not required by law. Electronically signed by: Lincoln Caceres M.D. 05/08/2021 7:25 AM
[2021-05-08] MEDS: INSULIN ASPART PER UNIT SC SCH ×4 (08:18→20:55)
[2021-05-08] MEDS: INSULIN GLARGINE SOLOSTAR 100 UNITS/ML 3 ML PEN SQ SCH (08:19)
[2021-05-08] MEDS: NYSTATIN CR 15 GM TUBE EXT SCH ×2 (08:20→20:27)
[2021-05-08] MEDS: SILVER SULFADIAZINE 1% CR 50 GM JAR TOP SCH (08:20)
[2021-05-08] MEDS: clonazePAM 0.5 MG TAB PO SCH ×2 (08:20→20:25)
[2021-05-08] MEDS: CEROVITE ADV FORMULA TAB PO SCH (08:21)
[2021-05-08] MEDS: ALFUZOSIN HCL 10 MG TAB PO SCH (08:21)
[2021-05-08] MEDS: CYANOCOBALAMIN (B-12) 500 MCG TABLET PO SCH (08:21)
[2021-05-08] MEDS: hydrOXYzine HCl 25 MG TAB PO SCH ×3 (08:21→20:26)
[2021-05-08] MEDS: fluvoxaMINE MALEATE 50 MG TAB PO SCH ×2 (08:21→20:26)
[2021-05-08] MEDS: OXYBUTYNIN CHLORIDE 5 MG TAB PO SCH ×2 (08:22→20:26)
[2021-05-08] MEDS: FAMOTIDINE 20 MG TAB PO SCH ×2 (08:22→20:26)
[2021-05-08] MEDS: busPIRone 5 MG TAB PO SCH ×2 (08:22→20:26)
[2021-05-08] MEDS: risperiDONE 0.5 MG TABLET PO SCH ×3 (08:22→20:26)
[2021-05-08] MEDS: ASPIRIN 81 MG CHEW PO SCH (08:24)
[2021-05-08] MEDS: ACETAMINOPHEN 325 MG TAB PO PRN ×2 (12:09→20:25)
--- NOTE | 2021-05-08 16:47 | Hospitalist Progress Note ---
Date of Service May 08, 2021 Assessment & Plan (1) Sepsis: (2) Immunocompromised: (3) Bacteremia: Plan: 60-year-old female with past medical history of type 2 diabetes, diabetic retinopathy, HIV under treatment, multiple thyroid nodules, vitamin D deficiency, vitamin B12 deficiency, morbid obesity, UTI, urge incontinence, anemia and chronic kidney disease, MRSA infection, depression, anxiety, DVT, status post left above-knee amputation, [facility], presents with hypotension 05/06. She is being managed for the followin. Sepsis 2/2 below 1. Complicated UTI 1. RLE cellulitis 1. Bacteremia -- E coli At admission, tachycardic, temperature above 38C, lactate WNL, WBC elevated at 15.2 2K, procalcitonin elevated 2.72, hypotensive 84/51 and responded to fluid resuscitation. Patient received daptomycin and Invanz in the ED. Upon presentation, Right lower extremity below knee is erythematous and warm to palpation. Admitting RLE venous Doppler: Negative for DVT Admitting urinalysis suggestive for UTI Admitting urine culture: Pending Admitting blood culture: Gram-negative bacilli, follow-up final results Pt getting better, temp better controlled. Continue with aztreonam 05/06, follow-up with repeat Cx 05/07 05/08 D/w pharmacy, patient had cipro in 2019 Dec multiple doses with no documented allergy. 05/08 Discussed with patient about her allergies to antibiotics in the past, she stated turning red w/ shakes and chills with penicillins and vancomycin but not aware of any allergies to levaquin/cipro mentioned in the system. Will reach out to ID with new results and further recs, likely mary carmen. continue to hold antihypertensives (losartan) ID evaluated 05/07, f/u w/ HIV provider upon DC, appreciate recs. #. Hyponatremia Presentation sodium 130, likely secondary to poor appetite prior to arrival Resolved. 2. Acute kidney injury on chronic kidney disease stage III. Baseline creatinine seems to be around 1.3, Resolved. Avoid nephrotoxic agents. 3. History of diabetes. Hold metformin. Continue long-acting insulin, on insulin sliding scale. 4. History of human immunodeficiency virus. Continue her home medications. 05/07 Discussed with pharmacy, we do not carry her home med Elia, son to bring her meds to hospital, resume as soon as possible. 2/23 son didn't bring the meds today, called her son over the phone, left voice message to bring the medications to the hospital as soon as possible and contact with the nursing desk. RN had talk with son who will be bringing meds next day. Patient aware of the situation. Follow-up with HIV provider upon discharge. 5. History of depression and anxiety. Continue Klonopin, buspirone, risperidone, and fluvoxamine. 6. Morbid obesity, needs counseling. #. DVT prophylaxis: Heparin CODE STATUS: DNR/DNI Disposition: PT/OT, CM to assist with DC planning, expect dc in next 1-2 days will results of repeat bl cx. Antibiotic is yet to be decided, likely will be oral. Admission and Anticipated Discharge Date Admission Date: May 06, 2021 Subjective Patient seen and examined at bedside for follow-up of sepsis secondary to ce llulitis and GEGE over CKD and bacteremia. Patient lying in bed, on room air, NAD, no new acute events overnight. Patient's temperature is getting better on antibiotic, t max of 38C yesterday evening, patient reports feeling better. Patient reports chronic right knee pain. Patient denies any cough/sore throat/headache/dizziness/chest pain/palpitations/belly pain/problems with bowel habits/other review of symptoms. Per RN, pt is still very weak. No new acute events overnight. Physical Exam Physical Exam: GENERAL: Alert and oriented x3. NAD, on RA. HEENT: No pallor, no icterus. Pupils equal, round and reactive to light. Oral mucosa moist. NECK: No JVD, no neck masses. HEART: S1 and S2 heard. Regular rate and rhythm. Systolic murmur over aortic and pulmonic area, no gallop. RESPIRATORY SYSTEM: Normal AP diameter. No accessory muscle use. No wheezing, no crackles. ABDOMEN: Soft, bowel sounds present, RUQ and LUQ tenderness, no distention. CENTRAL NERVOUS SYSTEM: No facial droop. Speech is clear. Obeys simple commands. Moves extremities. EXTREMITIES: RLE trace edema with erythema and warmth noted, LLEAKA stump noted. Rt knee brace in situ. Results & Data Results & Data ([facility]) Vital Signs (Past 12 Hours) Vital Signs Temp Pulse Pulse Resp BP Pulse Ox 05/08/21 16:00 36.7 C 79 18 119/71 96 05/08/21 15:18 81 05/08/21 11:00 36.9 C 83 16 116/70 97 05/08/21 08:00 85 05/08/21 07:00 36.8 C 96 H 18 108/61 96
[2021-05-08] MEDS ORDERED: POLYETHYLENE (MIRALAX) 17 GM PACK PO PRN (20:05)
[2021-05-09] MEDS: AZTREONAM 2,000 MG in DEXTROSE 5% 100 ML IV SCH (03:59)
[2021-05-09] MEDS: HEPARIN SOD 5,000 UNIT/0.5 ML VIAL SQ SCH ×3 (05:57→21:11)
[2021-05-09] MEDS: OXYBUTYNIN CHLORIDE 5 MG TAB PO SCH ×2 (08:15→21:09)
[2021-05-09] MEDS: CEROVITE ADV FORMULA TAB PO SCH (08:15)
[2021-05-09] MEDS: ALFUZOSIN HCL 10 MG TAB PO SCH (08:15)
[2021-05-09] MEDS: CYANOCOBALAMIN (B-12) 500 MCG TABLET PO SCH (08:15)
[2021-05-09] MEDS: busPIRone 5 MG TAB PO SCH ×2 (08:15→21:09)
[2021-05-09] MEDS: risperiDONE 0.5 MG TABLET PO SCH ×3 (08:15→21:09)
[2021-05-09] MEDS: FAMOTIDINE 20 MG TAB PO SCH ×2 (08:16→21:09)
[2021-05-09] MEDS: fluvoxaMINE MALEATE 50 MG TAB PO SCH ×2 (08:16→21:09)
[2021-05-09] MEDS: hydrOXYzine HCl 25 MG TAB PO SCH ×3 (08:16→21:09)
[2021-05-09] MEDS: INSULIN GLARGINE SOLOSTAR 100 UNITS/ML 3 ML PEN SQ SCH (08:16)
[2021-05-09] MEDS: SILVER SULFADIAZINE 1% CR 50 GM JAR TOP SCH (08:17)
[2021-05-09] MEDS: NYSTATIN CR 15 GM TUBE EXT SCH ×2 (08:17→21:10)
[2021-05-09] MEDS: ACETAMINOPHEN 325 MG TAB PO PRN (08:20)
[2021-05-09] MEDS: INSULIN ASPART PER UNIT SC SCH ×4 (08:21→21:12)
[2021-05-09] MEDS: ASPIRIN 81 MG CHEW PO SCH (08:21)
[2021-05-09] MEDS: clonazePAM 0.5 MG TAB PO SCH ×2 (08:21→21:09)
[2021-05-09] MEDS: CIPROFLOXACIN 500 MG TAB PO SCH ×2 (10:59→21:09)
--- NOTE | 2021-05-09 15:59 | XRay Report ---
RIGHT KNEE 3 VIEWS HISTORY: rt knee pain COMPARISON: Right knee 04/09/2020. FINDINGS: The bones are osteopenic. No acute fractures identified within the right knee. Mild soft ti ssue swelling, unchanged. Trace knee effusion is again noted. There are severe tricompartmental osteo arthritis with large marginal osteophytes. There are few intra-articular loose bodies. Chronic latera l patellar subluxation remains unchanged. No radiopaque foreign bodies. IMPRESSION: 1. No significant change compared to the prior study. 2. No acute fractures within the right knee. 3. Chronic lateral patellar subluxation is again noted. ACT 112: Negative or not required by law. Electronically signed by: Jose Li M.D. 05/09/2021 3:57 PM
--- NOTE | 2021-05-09 18:09 | Hospitalist Progress Note ---
Date of Service May 09, 2021 Assessment & Plan (1) Sepsis: (2) Immunocompromised: (3) Bacteremia: Plan: 60-year-old female with past medical history of type 2 diabetes, diabetic retinopathy, HIV under treatment, multiple thyroid nodules, vitamin D deficiency, vitamin B12 deficiency, morbid obesity, UTI, urge incontinence, anemia and chronic kidney disease, MRSA infection, depression, anxiety, DVT, status post left above-knee amputation, lives in a halfway, presents with hypotension 05/06. She is being managed for the followin. Sepsis 2/ below 1. Complicated UTI 1. RLE cellulitis 1. Bacteremia -- E coli At admission, tachycardic, temperature above 38C, lactate WNL, WBC elevated at 15.2 2K, procalcitonin elevated 2.72, hypotensive 84/51 and responded to fluid resuscitation. Patient received daptomycin and Invanz in the ED. Upon presentation, Right lower extremity below knee is erythematous and warm to palpation. Admitting RLE venous Doppler: Negative for DVT Admitting urinalysis suggestive for UTI Admitting urine culture: Pending Admitting blood culture: Gram-negative bacilli, follow-up final results Pt getting better, temp better controlled. RLE erythema better Continue with aztreonam 05/06, follow-up with repeat Cx 05/07 -[id number] 05/08 D/w pharmacy, patient had cipro in 2019 Dec multiple doses with no documented allergy. 05/08 Discussed with patient about her allergies to antibiotics in the past, she stated turning red w/ shakes and chills with penicillins and vancomycin but not aware of any allergies to levaquin/cipro mentioned in the system. 05/09 D/w ID. 05/06 Aztreonam --> 05/09 cipro 500 BD, will monitor for adverse reaction overnight. ID evaluated 05/07, f/u w/ HIV provider upon DC, appreciate recs. #. Hyponatremia Presentation sodium 130, likely secondary to poor appetite prior to arrival Resolved. 2. Acute kidney injury on chronic kidney disease stage III. Baseline creatinin e seems to be around 1.3, Resolved. Avoid nephrotoxic agents. 3. History of diabetes. Hold metformin. Continue long-acting insulin, on insulin sliding scale. 4. History of human immunodeficiency virus. Continue her home medications. 05/07 Discussed with pharmacy, we do not carry her home med Descov[place], son to bring her meds to hospital, resume as soon as possible. 05/07 son didn't bring the meds today, called her son over the phone, left voice message to bring the medications to the hospital as soon as possible and contact with the nursing desk. RN had talk with son who will be bringing meds next day. 05/09; able to get hold of her son over the phone after multiple attempts, will bring the meds tomorrow. Patient aware of the situation. Follow-up with HIV provider upon discharge. 5. History of depression and anxiety. Continue Klonopin, buspirone, risperidone, and fluvoxamine. 6. Morbid obesity, needs counseling. #. DVT prophylaxis: Heparin CODE STATUS: DNR/DNI Disposition: PT/OT, CM to assist with DC planning, expect dc tomorrow unless no new issues arise. Admission and Anticipated Discharge Date Admission Date: May 06, 2021 Subjective Patient seen and examined at bedside for follow-up of sepsis secondary to cellulitis and GEGE over CKD and bacteremia. Patient lying in bed, on room air, NAD, no new acute events overnight. Patient is is afebrile, patient reports feeling weak today. Patient reports chronic right knee pain, x-ray ordered and reviewed - no acute changes. Patient denies any cough/sore throat/headache/dizziness/chest pain/palpitations/belly p ain/problems with bowel habits/other review of symptoms. Per RN, pt is still very weak. No new acute events overnight. Physical Exam Physical Exam: GENERAL: Alert and oriented x3. NAD, on RA. HEENT: No pallor, no icterus. Pupils equal, round and reactive to light. Oral mucosa moist. NECK: No JVD, no neck masses. HEART: S1 and S2 heard. Regular rate and rhythm. Systolic murmur over aortic and pulmonic area, no gallop. RESPIRATORY SYSTEM: Normal AP diameter. No accessory muscle use. No wheezing, no crackles. ABDOMEN: Soft, bowel sounds present, RUQ and LUQ tenderness, no distention. CENTRAL NERVOUS SYSTEM: No facial droop. Speech is clear. Obeys simple commands. Moves extremities. EXTREMITIES: RLE trace edema with erythema and warmth --> improving, LLEAKA stump noted. Rt knee brace in situ. Results & Data Results & Data ([facility]) Vital Signs (Past 12 Hours) Vital Signs Temp Pulse Pulse Resp BP Pulse Ox 05/09/21 14:54 73 05/09/21 11:52 36.8 C 76 14 121/74 93 05/09/21 08:00 78 05/09/21 07:26 36.8 C 85 16 138/81 93
[2021-05-09] MEDS: DICLOFENAC SOD 1% GEL 100 GM TUBE EXT SCH (19:01)
[2021-05-10] MEDS: HEPARIN SOD 5,000 UNIT/0.5 ML VIAL SQ SCH ×3 (05:45→22:09)
[2021-05-10] MEDS: DICLOFENAC SOD 1% GEL 100 GM TUBE EXT SCH ×3 (05:46→17:54)
[2021-05-10] MEDS: OXYBUTYNIN CHLORIDE 5 MG TAB PO SCH (08:36)
[2021-05-10] MEDS: busPIRone 5 MG TAB PO SCH ×2 (08:37→22:25)
[2021-05-10] MEDS: CIPROFLOXACIN 500 MG TAB PO SCH ×2 (08:37→22:26)
[2021-05-10] MEDS: CYANOCOBALAMIN (B-12) 500 MCG TABLET PO SCH (08:37)
[2021-05-10] MEDS: FAMOTIDINE 20 MG TAB PO SCH ×2 (08:37→22:33)
[2021-05-10] MEDS: hydrOXYzine HCl 25 MG TAB PO SCH ×3 (08:37→22:45)
[2021-05-10] MEDS: fluvoxaMINE MALEATE 50 MG TAB PO SCH ×2 (08:37→22:30)
[2021-05-10] MEDS: CEROVITE ADV FORMULA TAB PO SCH (08:38)
[2021-05-10] MEDS: risperiDONE 0.5 MG TABLET PO SCH ×3 (08:38→22:23)
[2021-05-10] MEDS: NYSTATIN CR 15 GM TUBE EXT SCH ×2 (08:38→22:10)
[2021-05-10] MEDS: ALFUZOSIN HCL 10 MG TAB PO SCH (08:38)
[2021-05-10] MEDS: SILVER SULFADIAZINE 1% CR 50 GM JAR TOP SCH (08:39)
[2021-05-10] MEDS: clonazePAM 0.5 MG TAB PO SCH ×2 (08:41→22:45)
[2021-05-10] MEDS: ASPIRIN 81 MG CHEW PO SCH (08:42)
[2021-05-10] MEDS: INSULIN GLARGINE SOLOSTAR 100 UNITS/ML 3 ML PEN SQ SCH (08:45)
[2021-05-10] MEDS: INSULIN ASPART PER UNIT SC SCH ×4 (08:48→22:20)
[2021-05-10 09:47] LABS: Hematocrit (blood only) 31.7 % (37-47); Hemoglobin 10.2 g/dL (12.0-16.0); Mean Corpuscular Hgb Conc 32.2 g/dL (32-36); Mean Corpuscular Volume 90.1 fL (80-100); Mean Platelet Volume 8.7 fL (7.4-10.4); Platelet Count 229 K/uL (130-400); RDW Coefficient of Variation 13.1 % (11.5-14.5); RDW Standard Deviation 43.1 fL (36.4-46.3); Red Blood Count 3.52 M/uL (4.2-5.4)
[2021-05-10 10:15] LABS: BUN Creatinine Ratio 22.9 (10-20); Creatinine Clr Calc Pharmacy 69.1 ml/min; Est GFR (African American) 64.3 ml/min; Est GFR (Non-African American) 55.5 ml/min; Magnesium 1.7 mg/dl (1.7-2.4); Phosphorus 3.9 mg/dl (2.5-4.9); Potassium 4.2 mmol/L (3.5-5.1)
--- NOTE | 2021-05-10 17:12 | Hospitalist Progress Note ---
Date of Service May 10, 2021 Assessment & Plan (1) Sepsis: (2) Immunocompromised: (3) Bacteremia: Plan: 60-year-old female with past medical history of type 2 diabetes, diabetic retinopathy, HIV under treatment, multiple thyroid nodules, vitamin D deficiency, vitamin B12 deficiency, morbid obesity, UTI, urge incontinence, anemia and chronic kidney disease, MRSA infection, depression, anxiety, DVT, status post left above-knee amputation, lives in a skilled nursing, presents with hypotension 05/06. She is being managed for the followin. Sepsis / below 1. Complicated UTI 1. RLE cellulitis 1. Bacteremia -- E coli At admission, tachycardic, temperature above 38C, lactate WNL, WBC elevated at 15.2 2K, procalcitonin elevated 2.72, hypotensive 84/51 and responded to fluid resuscitation. Patient received daptomycin and Invanz in the ED. Upon presentation, Right lower extremity below knee is erythematous and warm to palpation. Admitting RLE venous Doppler: Negative for DVT Admitting urinalysis suggestive for UTI Admitting urine culture: No growth Admitting blood culture: E.coli Pt getting better, temp better controlled. RLE erythema resolved 05/08 D/w pharmacy, patient had cipro in 2019 Dec multiple doses with no documented allergy. 05/08 Discussed with patient about her allergies to antibiotics in the past, she stated turning red w/ shakes and chills with penicillins and vancomycin but not aware of any allergies to levaquin/cipro mentioned in the system. 05/06 Aztreonam --> 05/09 cipro 500 BD, no adverse events so far. ID evaluated 05/07, f/u w/ HIV provider upon DC, appreciate recs. #. Hyponatremia Presentation sodium 130, likely secondary to poor appetite prior to arrival Resolved. 2. Acute kidney injury on chronic kidney disease stage III. Baseline creatinine seems to be around 1.3, Resolved. Avoid nephrotoxic agents. 3. History of diabetes. Hold metformin. Continue long-acting insulin, on insulin sliding scale. 4. History of human immunodeficiency virus. Continue her home medications. 05/07 Discussed with pharmacy, we do not carry her home med [place]cov[place], son to bring her meds to hospital, resume as soon as possible. 05/07 son didn't bring the meds today, called her son over the phone, left voice message to bring the medications to the hospital as soon as possible and contact with the nursing desk. RN had talk with son who will be bringing meds next day. 05/09; able to get hold of her son over the phone after multiple attempts, will bring the meds tomorrow. 05/10 Pt's son bringing meds today HIV meds to be resumed today. Patient aware of the situation. Follow-up with HIV provider upon discharge. 5. History of depression and anxiety. Continue Klonopin, buspirone, risperidone, and fluvoxamine. 6. Morbid obesity, needs counseling. #. DVT prophylaxis: Heparin CODE STATUS: DNR/DNI Disposition: PT/OT, CM to assist with DC planning. Medically stable. Can go back to [facility] with HH, but per CM [facility] can't take over the weekend. Admission and Anticipated Discharge Date Admission Date: May 06, 2021 Subjective Patient seen and examined at bedside for follow-up of sepsis secondary to cellulitis and GEGE over CKD and bacteremia. Patient lying in bed, on room air, NAD, no new acute events overnight. Patient is is afebrile, patient reports feeling better today. Patient denies any c ough/sore throat/headache/dizziness/chest pain/palpitations/belly pain/problems with bowel habits/other review of symptoms. Physical Exam Physical Exam: GENERAL: Alert and oriented x3. NAD, on RA. HEENT: No pallor, no icterus. Pupils equal, round and reactive to light. Oral mucosa moist. NECK: No JVD, no neck masses. HEART: S1 and S2 heard. Regular rate and rhythm. Systolic murmur over aortic and pulmonic area, no gallop. RESPIRATORY SYSTEM: Normal AP diameter. No accessory muscle use. No wheezing, no crackles. ABDOMEN: Soft, bowel sounds present, RUQ and LUQ tenderness, no distention. CENTRAL NERVOUS SYSTEM: No facial droop. Speech is clear. Obeys simple commands. Moves extremities. EXTREMITIES: RLE trace edema with erythema and warmth --> resolved, LLEAKA stump noted. Rt knee brace in situ. Results & Data Results & Data ([facility]) Vital Signs (Past 12 Hours) Vital Signs Temp Pulse Pulse Resp BP Pulse Ox 05/10/21 16:30 36.9 C 80 20 125/81 94 02/26/22 08:00 36.9 C 83 18 132/83 91
[2021-05-10] MEDS: ACETAMINOPHEN 325 MG TAB PO PRN (19:33)
[2021-05-10] MEDS: DESCOVY EXT SCH (22:10)
[2021-05-10] MEDS: DOLUTEGRAVIR SODIUM 50 MG TAB PO SCH (22:29)
[2021-05-11] MEDS: OXYBUTYNIN CHLORIDE 5 MG TAB PO SCH ×3 (00:23→22:03)
[2021-05-11] MEDS: DICLOFENAC SOD 1% GEL 100 GM TUBE EXT SCH ×3 (03:24→17:45)
[2021-05-11] MEDS: HEPARIN SOD 5,000 UNIT/0.5 ML VIAL SQ SCH ×3 (06:10→22:03)
[2021-05-11] MEDS: INSULIN ASPART PER UNIT SC SCH ×4 (08:55→22:02)
[2021-05-11] MEDS: INSULIN GLARGINE SOLOSTAR 100 UNITS/ML 3 ML PEN SQ SCH (08:55)
[2021-05-11] MEDS: risperiDONE 0.5 MG TABLET PO SCH ×3 (08:57→22:01)
[2021-05-11] MEDS: busPIRone 5 MG TAB PO SCH ×2 (08:58→22:01)
[2021-05-11] MEDS: CIPROFLOXACIN 500 MG TAB PO SCH ×2 (08:58→22:02)
[2021-05-11] MEDS: fluvoxaMINE MALEATE 50 MG TAB PO SCH ×2 (08:58→22:01)
[2021-05-11] MEDS: CEROVITE ADV FORMULA TAB PO SCH (08:58)
[2021-05-11] MEDS: CYANOCOBALAMIN (B-12) 500 MCG TABLET PO SCH (08:58)
[2021-05-11] MEDS: ALFUZOSIN HCL 10 MG TAB PO SCH (08:58)
[2021-05-11] MEDS: SILVER SULFADIAZINE 1% CR 50 GM JAR TOP SCH (08:59)
[2021-05-11] MEDS: NYSTATIN CR 15 GM TUBE EXT SCH ×2 (08:59→22:09)
[2021-05-11] MEDS: hydrOXYzine HCl 25 MG TAB PO SCH ×3 (09:04→22:02)
[2021-05-11] MEDS: ASPIRIN 81 MG CHEW PO SCH (09:04)
[2021-05-11] MEDS: ACETAMINOPHEN 325 MG TAB PO PRN ×2 (09:04→22:27)
[2021-05-11] MEDS: clonazePAM 0.5 MG TAB PO SCH ×2 (09:05→22:00)
[2021-05-11] MEDS: FAMOTIDINE 20 MG TAB PO SCH ×2 (11:07→22:01)
--- NOTE | 2021-05-11 16:31 | Hospitalist Progress Note ---
Date of Service May 11, 2021 Assessment & Plan (1) Sepsis: (2) Immunocompromised: (3) Bacteremia: Plan: 60-year-old female with past medical history of type 2 diabetes, diabetic retinopathy, HIV under treatment, multiple thyroid nodules, vitamin D deficiency, vitamin B12 deficiency, morbid obesity, UTI, urge incontinence, anemia and chronic kidney disease, MRSA infection, depression, anxiety, DVT, status post left above-knee amputation, lives in a senior care, presents with hypotension 05/06. She is being managed for the followin. Sepsis 2/ below 1. Complicated UTI 1. RLE cellulitis 1. Bacteremia -- E coli At admission, tachycardic, temperature above 38C, lactate WNL, WBC elevated at 15.2 2K, procalcitonin elevated 2.72, hypotensive 84/51 and responded to fluid resuscitation. Patient received daptomycin and Invanz in the ED. Upon presentation, Right lower extremity below knee is erythematous and warm to palpation. Admitting RLE venous Doppler: Negative for DVT Admitting urinalysis suggestive for UTI Admitting urine culture: No growth Admitting blood culture: E.coli Pt feels better, afebrile last 2-3 days.. RLE erythema resolved 05/08 D/w pharmacy, patient had cipro in 2019 Dec multiple doses with no documented allergy. 05/08 Discussed with patient about her allergies to antibiotics in the past, she stated turning red w/ shakes and chills with penicillins and vancomycin but not aware of any allergies to levaquin/cipro mentioned in the system. 05/06 Aztreonam --> 05/09 cipro 500 BD, no adverse events so far as of 05/11 ID evaluated 05/07, f/u w/ HIV provider upon DC, appreciate recs. #. Hyponatremia Presentation sodium 130, likely secondary to poor appetite prior to arrival Resolved. 2. Acute kidney injury on chronic kidney disease stage III. Baseline creatinine seems to be around 1.3, Resolved. Avoid nephrotoxic agents. 3. History of diabetes. Hold metformin. Continue long-acting insulin, on insulin sliding scale. 4. History of human immunodeficiency virus. Continue her home medications. 05/07 Discussed with pharmacy, we do not carry her home med [place], son to bring her meds to hospital, resume as soon as possible. 05/07 son didn't bring the meds today, called her son over the phone, left voice message to bring the medications to the hospital as soon as possible and contact with the nursing desk. RN had talk with son who will be bringing meds next day. 05/09; able to get hold of her son over the phone after multiple attempts, will bring the meds tomorrow. 05/10 Pt's son bringing meds today HIV meds to be resumed today. Patient aware of the situation. Follow-up with HIV provider upon discharge. 5. History of depression and anxiety. Continue Klonopin, buspirone, risperidone, and fluvoxamine. 6. Morbid obesity, needs counseling. #. DVT prophylaxis: Heparin CODE STATUS: DNR/DNI Disposition: PT/OT, CM to assist with DC planning. Medically stable. Can go back to [facility] with HH, but per CM [facility] can't take over the weekend. Admission and Anticipated Discharge Date Admission Date: May 06, 2021 Subjective Patient seen and examined at bedside for follow-up of sepsis secondary to cellulitis and GEGE over CKD and bacteremia. Patient lying in bed, on room air, NAD, no new acute events overnight. Patient is is afebrile, patient reports feeling better. Patient denies any cough/sore throat/headache/dizziness/chest pain/palpitations/belly pain/problems with bowel habits/other review of symptoms. Physical Exam Physical Exam: GENERAL: Alert and oriented x3. NAD, on RA. HEENT: No pallor, no icterus. Pupils equal, round and reactive to light. Oral mucosa moist. NECK: No JVD, no neck masses. HEART: S1 and S2 heard. Regular rate and rhythm. Systolic murmur over aortic and pulmonic area, no gallop. RESPIRATORY SYSTEM: Normal AP diameter. No accessory muscle use. No wheezing, no crackles. ABDOMEN: Soft, bowel sounds present, RUQ and LUQ tenderness, no distention. CENTRAL NERVOUS SYSTEM: No facial droop. Speech is clear. Obeys simple co mmands. Moves extremities. EXTREMITIES: RLE trace edema with erythema and warmth --> resolved, LLEAKA stump noted. Results & Data Results & Data ([facility]) Vital Signs (Past 12 Hours) Vital Signs Temp Pulse Resp BP BP Pulse Ox 05/11/21 15:34 36.7 C 77 17 117/72 95 05/11/21 07:42 36.5 C 72 16 117/71 93
[2021-05-11] MEDS: DESCOVY EXT SCH (22:04)
[2021-05-11] MEDS: DOLUTEGRAVIR SODIUM 50 MG TAB PO SCH (22:04)
[2021-05-12] MEDS: DICLOFENAC SOD 1% GEL 100 GM TUBE EXT SCH ×2 (01:47→09:07)
[2021-05-12] MEDS: HEPARIN SOD 5,000 UNIT/0.5 ML VIAL SQ SCH ×2 (06:00→13:48)
[2021-05-12] MEDS: busPIRone 5 MG TAB PO SCH (07:26)
[2021-05-12] MEDS: fluvoxaMINE MALEATE 50 MG TAB PO SCH (07:27)
[2021-05-12] MEDS: OXYBUTYNIN CHLORIDE 5 MG TAB PO SCH (07:27)
[2021-05-12] MEDS: FAMOTIDINE 20 MG TAB PO SCH (07:27)
[2021-05-12] MEDS: risperiDONE 0.5 MG TABLET PO SCH ×2 (07:27→13:48)
[2021-05-12] MEDS: ASPIRIN 81 MG CHEW PO SCH (07:28)
[2021-05-12] MEDS: hydrOXYzine HCl 25 MG TAB PO SCH ×2 (07:28→13:48)
[2021-05-12] MEDS: CYANOCOBALAMIN (B-12) 500 MCG TABLET PO SCH (07:28)
[2021-05-12] MEDS: ALFUZOSIN HCL 10 MG TAB PO SCH (07:28)
[2021-05-12] MEDS: CIPROFLOXACIN 500 MG TAB PO SCH (07:29)
[2021-05-12] MEDS: NYSTATIN CR 15 GM TUBE EXT SCH (07:29)
[2021-05-12] MEDS: SILVER SULFADIAZINE 1% CR 50 GM JAR TOP SCH (07:29)
[2021-05-12] MEDS: CEROVITE ADV FORMULA TAB PO SCH (07:29)
[2021-05-12] MEDS: ACETAMINOPHEN 325 MG TAB PO PRN (07:34)
[2021-05-12] MEDS: clonazePAM 0.5 MG TAB PO SCH (07:34)
[2021-05-12] MEDS: INSULIN GLARGINE SOLOSTAR 100 UNITS/ML 3 ML PEN SQ SCH (08:52)
[2021-05-12] MEDS: INSULIN ASPART PER UNIT SC SCH ×2 (08:55→12:42)
--- NOTE | 2021-05-12 11:24 | Discharge Summary ---
Date of Service May 12, 2021 Admission HPI Per Admitting Provider HISTORY OF PRESENT ILLNESS: This is a 60-year-old female with past medical history significant for type 2 diabetes, diabetic retinopathy, history of multiple thyroid nodules, vitamin D deficiency, vitamin B12 deficiency, morbid obesity, history of UTI, urge incontinence, anemia and chronic kidney disease, history of MRSA infection, HIV positive, depression, anxiety, history of DVT, status post left above-knee amputation, lives in a penitentiary, presents with hypotension.The patient says, she was sent in because she was having low blood pressure. The patient denies any complaints. Her blood pressure was low when she came. Initial blood pressure was 84/51. With fluid resuscitation, it is improved to 100/66, somewhat drowsy, but answering all the questions appropriately. Denies any headache, denies any neck pain. No blurred visions, no earache, no runny nose, no sore throat. No cough. Denies any fever or chills. No chest pain or shortness of breath, no nausea, no vomiting, no abdominal pain. Normal bowel and bladder movements. On exam, she was found to have erythema and warm on touching of the right lower extremity. Right knee is in a brace; there is a small wound for which a bandage is placed, but no erythema or drainage from that wound is seen. Admission Exam Per Admitting Provider PHYSICAL EXAMINATION: GENERAL: The patient is morbidly obese, not in acute distress. VITAL SIGNS: Temperature 38, T-max 38, pulse 98, blood pressure was 84/51 when came in, currently 100/66, oxygen 98% on room air. HEENT: Pupils equal, round and reactive to light. Oral mucosa dry. NECK: No JVD, no neck masses. CARDIOVASCULAR: S1 and S2 heard. Regular rate and rhythm. No murmur, no gallop. RESPIRATORY SYSTEM: Normal AP diameter. No accessory muscle use. No wheezing, no crackles. ABDOMEN: Soft, bowel sounds present, nontender, no distention. CENTRAL NERVOUS SYSTEM: Cranial nerves II through XII are grossly intact, nonfocal. EXTREMITIES: Left above-knee amputation and right lower extremity erythematous and warm to palpation from below knee. Right knee is in a brace for a small superficial wound of the right knee with bandages in place, but no active drainage or erythema seen around the wound. SKIN: Erythematous changes in bilateral groins. Principal Diagnosis Sepsis 2/2 to E.Coli Bacteremia Complicated UTI RLE Cellultis Hyponatremia Acute on Chronic CKD Hx of HIV Discharge Exam Gen: WD/WN, NAD, A&O x3 HEENT: Normocephalic, atraumatic, conjunctivae moist, sclerae anicteric, mucous membranes moist. Lung: Clear to Auscultation bilaterally, no wheezes/rales/rhonchi Heart: Regular rate, regular rhythm, no murmurs, rubs, or gallops Abdomen: Soft, NT, ND +BS x 4 Extremities: L AKA, R Knee brace in place Skin: Warm, no rash, negative turgor. Discharge Data Allergies Allergy/AdvReac Type Severity Reaction Status Date / Time amoxicillin [From Augmentin] Allergy Severe MERLE Verified 02/14/21 02:00 SYNDROME clams Allergy Severe HIVES Verified 05/06/21 01:54 clavulanic acid Allergy Severe MERLE Verified 02/14/21 02:00 [From Augmentin] SYNDROME ceftriaxone Allergy Intermediate HIVES, Rash Verified 02/14/21 02:00 levofloxacin Allergy Intermediate Hives Verified 02/14/21 02:00 Penicillins Allergy Intermediate CHILLS/RYAN Verified 05/06/21 01:54 RS rosiglitazone [From Avandia] Allergy Intermediate Hives Verified 02/14/21 02:00 vancomycin AdvReac Mild RED MAN Verified 05/06/21 01:54 SYNDROME Consultations 05/06/21 03:16 ED Decision to Admit Stat 05/06/21 16:54 Consult Infectious Diseases Routine Ordered Studies Chest X-Ray 05/06/21 01:42 XR chest 1V portable CLINICAL HISTORY: Fever. COMPARISON STUDY: Chest radiograph February 13, 2021. FINDINGS: Patient is mildly rotated. Allowing for patient rotation, cardiome diastinal silhouette is stable. No pneumothorax or pleural effusion. No consolidation is identified. Interstitial prominence is unchanged. Degenerative changes of the left. Chronic deformity left humeral head are incidentally noted. IMPRESSION: No acute cardiopulmonary findings. ACT 112: Negative or not required by law. Electronically signed by: Valentino Beckman M.D. 05/06/2021 6:46 AM Abdomen Ultrasound 05/06/21 10:22 ULTRASOUND ABDOMEN COMPLETE CLINICAL HISTORY: Generalized abdominal pain. COMPARISON STUDY: Abdominal CT dated 08/27/2012. TECHNIQUE: Real-time, grayscale, and color flow sonography of the abdomen was performed. Images are reviewed in the transverse and longitudinal planes. Examination is degraded by large body habitus. FINDINGS: Liver: The liver is enlarged and demonstrates heterogeneously increased echotexture consistent with hepatic steatosis. There is no intrahepatic biliary ductal dilatation. The main portal vein is patent. Gallbladder: The gallbladder is normal in appearance. No gallstones are identified. There is no gallbladder wall thickening or pericholecystic fluid. A sonographic Nielsen's sign is reportedly absent. The common bile duct measures up to 0.5 cm in diameter. Pancreas: Nonvisualized due to overlying bowel gas. Spleen: The spleen is normal in size and echotexture, measuring 12.1 cm in length. Kidneys: The kidneys are not well visualized due to large body habitus and overlying bowel gas. Imaged renal cortex is grossly unremarkable. Abdominal vasculature: The abdominal aorta and IVC are not well-visualized due to overlying bowel gas. Ascites: None. IMPRESSION: 1. Hepatomegaly and hepatic steatosis. 2. No gallstones are seen. 3. The pancreas, kidneys, aorta, and IVC are not well-visualized due to large body habitus and overlying bowel gas. ACT 112: Negative or not required by law. Electronically signed by: Lincoln Caceres M.D. 05/06/2021 1:45 PM Venous Doppler Study 05/06/21 10:37 US venous doppler LE RT HISTORY: 60 years-old Female erythema . dvt? Acute pain and swelling of the lower legs COMPARISON: Duplex venous Doppler study 03/20/2015 TECHNIQUE: Multiple real-time sonographic images of the right lower extremity deep venous structures were obtained assessing grayscale appearance, color and spectral flow. FINDINGS: Normal flow, compressibility, phasicity and augmentation. Limited exam secondary to patient body habitus. The calf veins are not well visualized. IMPRESSION: No sonographic evidence of deep venous thrombosis. ACT 112: Negative or not required by law. The above report was generated using voice recognition software. It may contain grammatical, syntax or spelling errors. Electronically signed by: Mal Armenta M.D. 05/06/2021 12:25 PM Abdomen/Pelvis CT 05/07/21 17:56 CT SCAN OF THE ABDOMEN AND PELVIS WITHOUT IV CONTRAST CLINICAL HISTORY: Bacteremia. COMPARISON STUDY: Abdominal CT dated 08/27/2012. Abdominal ultrasound dated 05/06/2021. TECHNIQUE: CT scan of the abdomen and pelvis is performed from the lung bases to the proximal femora. Images are reviewed in the axial, sagittal, and coronal planes. IV contrast was not administered for this examination. Note that the examination is significantly suboptimal without IV contrast. Oral contrast was utilized. The examination is degraded by large body habitus, and by streak artifact from the body wall abutting the CT gantry. There is also motion artifact. A dose lowering technique was utilized adhering to the principles of ALARA. CT DOSE: 2104.80 mGy.cm FINDINGS: Lung bases: The heart is normal in size and without pericardial effusion. There are trace pleural effusions with dependent atelectasis. Liver: The unenhanced liver is normal in size, contour, and attenuation. There is no intrahepatic biliary ductal dilatation. Gallbladder: Unremarkable. Spleen: Normal in size and attenuation. Pancreas: The unenhanced pancreas is atrophic and grossly unremarkable. Adrenal glands: Unremarkable. Kidneys: The unenhanced kidneys demonstrate cortical atrophy and are without hydronephrosis. There is a punctate nonobstructing left renal calculus. No right renal calculi are identified. There is no evidence of contour deforming renal mass lesion. Abdominal vasculature: The abdominal aorta is normal in course and caliber noting mild to moderate atherosclerotic calcification. Bowel: There is mild colonic diverticulosis without CT evidence of acute di verticulitis. Moderate fecal retention is seen throughout the colon. There is no bowel obstruction. Enteric contrast reaches the right colon. The appendix is well-visualized and normal. Peritoneum: There is no intraperitoneal free air or abdominal ascites. There is diastases of the rectus musculature with a fat-containing umbilical hernia. Lymphadenopathy: None. Pelvic viscera: The bladder is decompressed around a Villela catheter and not well evaluated. The uterus is diminutive versus surgically absent. No adnexal lesion is seen. Large soft tissue calcifications are noted in the buttock bilaterally. Skeletal structures: The skeletal structures are osteopenic. There is lumbosacral spondylosis with evidence of L3-S1 spinal fusion. There is a chronic compression deformity of L1. No lytic or blastic lesions are seen. IMPRESSION: 1. No acute infectious or inflammatory findings are identified in the abdomen or pelvis. 2. Trace pleural effusions. 3. Mild colonic diverticulosis without CT evidence of acute diverticulitis. 4. Additional findings as above. ACT 112: Negative or not required by law. Electronically signed by: Lincoln Caceres M.D. 05/08/2021 7:25 AM Knee X-Ray 05/09/21 13:36 RIGHT KNEE 3 VIEWS HISTORY: rt knee pain COMPARISON: Right knee 04/09/2020. FINDINGS: The bones are osteopenic. No acute fractures identified within the right knee. Mild soft tissue swelling, unchanged. Trace knee effusion is again noted. There are severe tricompartmental osteoarthritis with large marginal osteophytes. There are few intra-articular loose bodies. Chronic lateral patellar subluxation remains unchanged. No radiopaque foreign bodies. IMPRESSION: 1. No significant change compared to the prior study. 2. No acute fractures within the right knee. 3. Chronic lateral patellar subluxation is again noted. ACT 112: Negative or not required by law. Electronically signed by: Jose Li M.D. 05/09/2021 3:57 PM Hospital Course (1) Sepsis: (2) Immunocompromised: (3) Bacteremia: 60-year-old female with past medical history of type 2 diabetes, diabetic retinopathy, HIV under treatment, multiple thyroid nodules, vitamin D deficiency, vitamin B12 deficiency, morbid obesity, UTI, urge incontinence, anemia and chronic kidney disease, MRSA infection, depression, anxiety, DVT, status post left above-knee amputation, lives in a personal care facility, presents with hypotension 05/06. She was diagnosed with E.Coli bacteremia 04/16 to RLE cellulitis and possible UTI. She was started on IV antibiotics. Due to multiple allergies ID was consulted. Pt was transitioned to oral Cipro 500mg bid and she will complete this on May 20, 2021. There was question if quinolones caused her hives; however she has been on this medication for 2 days with out drug reaction. Her Blood cultures cleared and were negative on 05/07 after initiation of IV antibiotics. She has known hx of HIV on anti retroviral therapy. We did not have her medications on formulary but family was able to bring in her medications. She went with out her meds 3 days. Infectious disease recommends she follow up with Sherry CUMMINGS, who she sees with for HIV as outpatient. She also had acute on chronic kidney injury which resolved and her creatinine on day of discharge was 1.29. On day of discharge she was in good spirits and her vitals were stable. She continues to complain of R knee pain and she wears a brace for this. It is recommended she establish with [facility] orthopedics at discharge. She was tolerating a diabetic diet and due to inability to do wheel chair transfers pt was deemed unable to return to personal fdc. She will be discharged today to [facility]. Total Time Total Time Spent Total Time Spent (In Minutes): 60 minutes Total Time Includes: Examination of the Patient, Discharge Planning, Medication Reconciliation, Communication With Other Providers and Other Discharge Plan Discharge Items Patient Disposition: Personal Senior Living Reason For Visit: Illness Discharge Diagnosis: Sepsis 2/2 to E.Coli Bacteremia Complicated UTI RLE Cellultis Hyponatremia Acute on Chronic CKD Hx of HIV Condition on Discharge: Good Activity: Resume your previous activity Non-emergency contact: Primary Care Provider Call non-emergency contact if: you have any medication questions, your symptoms worsen, your pain is not controlled, your pain is worsening, your pain is unusual for you, your pain is concerning for you, you have a fever and your temperature is above 101 Follow-up/Referrals: Sri Powells [Other] (Please call [facility] to establish appointment for R knee pain) Theron Springer DO [Physician] - (Date & Time 05/15/2021 9:00 AM Provider Tamiko Becker PA-C Department [facility] ) Rosita Kim [Primary Care Provider] - Diet: Carb Consistent or DM2 Diet Texture: Easy to Chew Addtl Attending Provider Instructions: MEDICATION CHANGES: Ciprofloxacin 500 mg twice daily to be completed on May 20, 2021 for E.Coli Bacteremia SUMMARY OF TEST RESULTS: You were admitted to hospital secondary to E. coli bacteremia, which is infection in your blood. This initially started secondary to urinary tract infection and right lower extremity cellulitis. You were seen and evaluated by infectious disease and recommended to take a 14- day course of antibiotics. Repeat blood cultures were negative after starting antibiotics. You had low sodium and this was corrected with IV fluids and improved nutrition. PENDING TEST RESULTS: None RECOMMENDATIONS FOR FOLLOW-UP: Please follow-up with PCP Dr. Springer on May 15 at 9 AM. Please follow-up with [facility] Infect[facility] Disease regarding HIV and bacteremia. Please Follow up with [facility] regarding right knee pain. Utilize brace as tolerated. Please complete antibiotic in entirety. You are being prescribed probiotic while on antibiotics to promote GI health. Please resume all other home medications. OTHER INSTRUCTIONS: Seek medical attention if you have: * temperature above 101 * chest pain or trouble breathing * abdominal pain, nausea, vomiting * diarrhea, dark stools or bloody stools * any unanswered questions or concerns Call 911 if symptoms are severe. Please take good care of yourself. It has been a pleasure taking care of you. Please take care of yourself. If you have any questions regarding your recent hospitalization please contact [facility] and request [facility] Hospitalist @ [phone]. Annie Meeks PA-C Pending Studies at Discharge: No Stand-Alone Forms: [facility], Smoking Cessation Skilled Items Patient informed of condition?: Yes DNR: Yes Discharge Level of Care: Other Communicable Disease: No Discharge Prognosis: Stable Lines: None Urinary Catheter: No Medications and DC Order Prescriptions: New ciprofloxacin HCl 500 mg Tablet 500 mg PO BID Qty: 17 RF: 0 Saccharomyces boulardii [Florastor] 250 mg capsule 250 mg PO DAILY Qty: 10 RF: 0 Continued nitroglycerin 0.4 mg tablet, sublingual 0.4 mg SL UD PRN (Reason: Chest Pain) RF: 0 metformin 500 mg tablet 500 mg PO BIDM RF: 0 hydroxyzine HCl 50 mg tablet 50 mg PO TID RF: 0 fluvoxamine 100 mg tablet 100 mg PO BID RF: 0 Tivicay 50 mg tablet 50 mg PO HS RF: 0 Descovy 200-25 mg tablet 1 tab PO HS RF: 0 lidocaine 5 % Adhesive Patch,Medicated 1 patch transdermal QAM Qty: 5 RF: 0 risperidone 0.5 mg tablet 0.5 mg PO TID RF: 0 clonazepam 0.5 mg tablet 0.5 mg PO BID RF: 0 aspirin [Aspirin For Children] 81 mg Tablet,Chewable 81 mg PO DAILY RF: 0 alfuzosin 10 mg tablet extended release 24 hr 10 mg PO DAILY RF: 0 Therems-M (old) Tablet 1 tab PO DAILY RF: 0 cyanocobalamin (vitamin B-12) 500 mcg Tablet, Sublingual 500 mcg SUBLINGUAL DAILY RF: 0 silver sulfadiazine [Silvadene] 1 % Cream 1 applic TOPICAL DAILY RF: 0 acetaminophen [Tylenol] 325 mg Tablet 650 mg PO Q4H MDD 3 GRAMS/24 HOURS PRN (Reason: FEVER/PAIN) RF: 0 loperamide [Imodium] 2 mg Capsule 2 mg PO Q6H PRN (Reason: Diarrhea) RF: 0 famotidine 20 mg Tablet 20 mg PO BID RF: 0 buspirone [BuSpar] 10 mg Tablet 20 mg PO BID RF: 0 losartan 25 mg Tablet 25 mg PO DAILY RF: 0 insulin aspart U-100 [Novolog Flexpen U-100 Insulin] 100 unit/mL (3 mL) Insulin Pen 5 unit SUBCUT ACHS RF: 0 trospium 20 mg Tablet 20 mg PO BID RF: 0 Basaglar KwikPen U-100 Insulin 100 unit/mL (3 mL) Insulin Pen 15 unit SUBCUT DAILY RF: 0 guaifenesin [Mucinex] 600 mg Tablet Extended Release 12hr 600 mg PO Q12H PRN (Reason: Congestion) RF: 0 Discharge Orders: Discharge Order (Routine); Ordered 05/12/21 Ordered By: Annie Love/Other Patient Handouts: Managing Type 2 Diabetes Admission Data Admit Date/Time: 05/06/21 04:54 Attending Provider: German Araya Admit Provider: Klever Whitehead Primary Care Provider: Rosita Kim Other Providers: Klever Whitehead ; Chris Govea ; Tabatha Hatfield ; Antolin Olivier I. ; Juan Cook II ; Viola Lomeli ; Pedro Pablo Hayden ; Mich Garcia ; Annie Meeks ; [facility]
== END 2021-05-12 17:10 | disposition home or self-care (01) | DRG 872 ==
LOC: ED 01:32 → EDINP 04:54 → 2S 19:04 → 3N 05-09 22:58

== ENCOUNTER 2021-05-22 22:34 | Inpatient (IN) ==
[2021-05-22] MEDS ORDERED: MEROPENEM CONSULT ACTIVE PRN (22:53)
[2021-05-22] MEDS ORDERED: MEROPENEM 2,000 MG in 0.9 % SODIUM CHLORIDE 58 ML IV STA (22:53)
[2021-05-22] MEDS ORDERED: DAPTOMYCIN IV ONE (23:00)
[2021-05-22] MEDS ORDERED: SODIUM CHLORIDE 0.9% 1000ML 1,000 ML IV ONE (23:03)
[2021-05-22 23:27] LABS: Basophils # (auto) 0.02 K/uL (0-0.2); Basophils % (auto) 0.2 %; Eosinophils # (auto) 0.02 K/uL (0-0.5); Eosinophils % (auto) 0.2 %; Hematocrit (blood only) 34.1 % (37-47); Immature Granulocytes # (auto) 0.03 K/uL (0.00-0.02); Immature Granulocytes % (auto) 0.3 %; Lymphocytes # (auto) 1.07 K/uL (1.2-3.4); Lymphocytes % (auto) 10.1 %; Mean Corpuscular Hemoglobin 29.3 pg (25-34); Mean Corpuscular Hgb Conc 32.3 g/dL (32-36); Mean Corpuscular Volume 90.9 fL (80-100); Mean Platelet Volume 8.8 fL (7.4-10.4); Monocytes # (auto) 0.26 K/uL (0.11-0.59); Monocytes % (auto) 2.5 %; Neutrophils # (auto) 9.15 K/uL (1.4-6.5); Neutrophils % (auto) 86.7 %; Platelet Count 319 K/uL (130-400); RDW Coefficient of Variation 13.5 % (11.5-14.5); RDW Standard Deviation 44.9 fL (36.4-46.3); Red Blood Count 3.75 M/uL (4.2-5.4); White Blood Count 10.55 K/uL (4.8-10.8)
--- NOTE | 2021-05-22 23:28 | Emergency Department Note ---
History of Present Illness General Chief complaint: Illness Time Seen by Provider: 05/22/21 22:36 History of Present Illness Maximum Pain Intensity: 10 This 60-year-old who resides at a [facility] who was just discharged with gram-negative bacteremia presents to the ER complaining of fever generalized illness weakness and pains Location: Generalized Quality: Weak and painful Severity: Moderate Duration: Today Timing: Today Context: Patient had a fever and was sent in from the [facility] Modifying factors: better with Tylenol; worse with activity Patient complains of fever, chills, generalized illness, abdominal pain and diarrhea. She denies chest pain, dyspnea, headache, neck stiffness. Home Medications Medication Instructions Recorded Confirmed Type risperidone 0.5 mg tablet 0.5 mg PO Q8 06/07/18 05/23/21 History clonazepam 0.5 mg tablet 0.5 mg PO BID 11/11/18 05/23/21 History dolutegravir 50 mg tablet (Tivicay) 50 mg PO HS 02/22/20 05/23/21 History emtricitabine 200 mg-tenofovir 1 tab PO HS 02/22/20 05/23/21 History alafenamide fumarate 25 mg tablet (Descovy) fluvoxamine 100 mg tablet 100 mg PO BID 02/22/20 05/23/21 History hydroxyzine HCl 50 mg tablet 50 mg PO Q8 02/22/20 05/23/21 History metformin 500 mg tablet 500 mg PO BIDM 02/22/20 05/23/21 History acetaminophen 325 mg tablet 650 mg PO Q4H PRN MDD 3 GRAMS/24 02/14/21 05/23/21 History (Tylenol) HOURS buspirone 10 mg tablet 20 mg PO BID 02/14/21 05/23/21 History famotidine 20 mg tablet 20 mg PO BID 02/14/21 05/23/21 History guaifenesin 600 mg tablet, 600 mg PO Q12H PRN 02/14/21 05/23/21 History extended release 12 hr (Mucinex) insulin glargine 100 unit/mL (3 15 unit SUBCUT DAILY 02/14/21 05/23/21 History mL) subcutaneous pen (Basaglar KwikPen U-100 Insulin) alfuzosin 10 mg tablet,extended 10 mg PO DAILY 05/06/21 05/23/21 History release 24 hr aspirin 81 mg chewable tablet 81 mg PO DAILY 05/06/21 05/23/21 History cyanocobalamin (vitamin B-12) 500 500 mcg SUBLINGUAL DAILY 05/06/21 05/23/21 History mcg sublingual tablet insulin regular human 100 unit/mL 0 unit SUBCUT ACHS 05/23/21 05/23/21 History (3 mL) subcutaneous pen (Novolin R Flexpen) multivitamin with folic acid 400 1 tab PO DAILY 05/23/21 05/23/21 History mcg tablet (Daily-Jefferson (with folic acid)) Allergies Allergy/AdvReac Type Severity Reaction Status Date / Time amoxicillin [From Augmentin] Allergy Severe MERLE Verified 02/14/21 02:00 SYNDROME clams Allergy Severe HIVES Verified 05/23/21 00:39 clavulanic acid Allergy Severe MERLE Verified 02/14/21 02:00 [From Augmentin] SYNDROME ceftriaxone Allergy Intermediate HIVES, Rash Verified 05/23/21 00:39 levofloxacin Allergy Intermediate Hives Verified 02/14/21 02:00 Penicillins Allergy Intermediate CHILLS/RYAN Verified 05/23/21 00:39 RS rosiglitazone [From Avandia] Allergy Intermediate Hives Verified 02/14/21 02:00 vancomycin AdvReac Mild RED MAN Verified 05/23/21 00:39 SYNDROME Past Med/Surg History Medical History Acute dehydration Acute hyperglycemia Acute venous thrombosis GEGE (acute kidney injury) Diabetes Falls History of DVT (deep vein thrombosis) HIV (human immunodeficiency virus infection) Hypertension Partial nontraumatic amputation of foot UTI (urinary tract infection) Surgical History History of carpal tunnel release of both wrists History of carpal tunnel surgery Social History Smoking Status: Former smoker Hx Alcohol Use: No Hx Substance Use: No Preferred Language: Armenian Communication Ability: Effective Transit Mix Operator Required: No Beliefs That Will Affect Care: None marital status: Single Current Living Situation: Alone How many Children do You have: 1 Feels Safe at Home: Yes Assistive Devices: Wheelchair Review of Systems A total of 10 systems reviewed and were otherwise negative Physical Exam Vital Signs Vital Signs - 24 hr 05/22/21 22:19 05/22/21 22:51 05/23/21 00:19 Temperature 37.7 C H 37.7 C H Temperature Source Oral Oral Pulse Rate 115 H 116 H Pulse Rate [Finger] 118 H 116 H 115 H Pulse Rhythm Regular Regular Pulse Rhythm [Finger] Regular Regular Regular Pulse Strength Normal Pulse Strength [Finger] Normal Normal Respiratory Rate 18 18 23 Respiratory Effort / Characteristics Non-Labored Non-Labored Non-Labored Respiratory Depth Normal Normal Normal Respiratory Pattern Regular Regular Regular Blood Pressure 102/69 Blood Pressure [Right Arm] 102/69 137/90 Blood Pressure Mean 80 Blood Pressure Mean [Right Arm] 80 105 Blood Pressure Position Lying Blood Pressure Position [Right Arm] Lying Lying Pulse Oximetry 98 98 95 Oxygen Delivery Method Room Air Room Air Room Air Sepsis Recent Fever Within 48 Hours Yes Sepsis New/Unexplained Change in Mental Status No Sepsis Action Taken by Nursing Previously Notified 05/23/21 00:21 05/23/21 00:30 05/23/21 00:48 Temperature 38.5 C H Temperature Source Oral Pulse Rate Pulse Rate [Finger] 116 H Pulse Rhythm Pulse Rhythm [Finger] Pulse Strength Pulse Strength [Finger] Respiratory Rate 24 Respiratory Effort / Characteristics Non-Labored Non-Labored Respiratory Depth Normal Respiratory Pattern Blood Pressure Blood Pressure [Right Arm] 132/70 Blood Pressure Mean Blood Pressure Mean [Right Arm] 90 Blood Pressure Position Blood Pressure Position [Right Arm] Lying Pulse Oximetry 98 Oxygen Delivery Method Room Air Sepsis Recent Fever Within 48 Hours Sepsis New/Unexplained Change in Mental Status Sepsis Action Taken by Nursing 05/23/21 01:00 05/23/21 01:15 05/23/21 01:30 Temperature Temperature Source Pulse Rate Pulse Rate [Finger] 110 H 128 H Pulse Rhythm Pulse Rhythm [Finger] Regular Regular Pulse Strength Pulse Strength [Finger] Normal Normal Respiratory Rate 22 22 Respiratory Effort / Characteristics Non-Labored Non-Labored Non-Labored Respiratory Depth Normal Normal Respiratory Pattern Blood Pressure Blood Pressure [Right Arm] Blood Pressure Mean Blood Pressure Mean [Right Arm] Blood Pressure Position Blood Pressure Position [Right Arm] Pulse Oximetry 97 Oxygen Delivery Method Room Air Sepsis Recent Fever Within 48 Hours Sepsis New/Unexplained Change in Mental Status Sepsis Action Taken by Nursing 05/23/21 02:00 05/23/21 02:01 Temperature 39.8 C H Temperature Source Oral Pulse Rate Pulse Rate [Finger] 118 H 120 H Pulse Rhythm Pulse Rhythm [Finger] Regular Regular Pulse Strength Pulse Strength [Finger] Normal Normal Respiratory Rate 21 21 Respiratory Effort / Characteristics Non-Labored Non-Labored Respiratory Depth Normal Normal Respiratory Pattern Regular Blood Pressure Blood Pressure [Right Arm] 127/78 124/72 Blood Pressure Mean Blood Pressure Mean [Right Arm] 94 89 Blood Pressure Position Blood Pressure Position [Right Arm] Lying Lying Pulse Oximetry 95 96 Oxygen Delivery Method Room Air Room Air Sepsis Recent Fever Within 48 Hours Sepsis New/Unexplained Change in Mental Status Sepsis Action Taken by Nursing VITALS: Vitals are noted on the nurse's note and reviewed by myself. Vital signs low-grade fever. GENERAL: White female answering all questions appropriately in no acute distress, nondiaphoretic, well-developed well-nourished. SKIN: Candidiasis to the pannus, stage I pressure ulcer to the gluteal region, patient was soaked in urine, the rest of The skin was without rashes, erythema, edema, or bruising. There is no tenting of the skin. Capillary reflex less than 2 seconds. HEAD: Normocephalic atraumatic. EARS: External auditory canals clear, EYES: Pupils equal round and reactive to light and accommodation. Conjunctivae without injection, sclerae without icterus. Extraocular movements intact. NOSE: Patent, turbinates without inflammation or discharge. MOUTH: Mucous membranes moist. Pharynx without erythema or exudate. Uvula midline. Airway patent. Tongue does not deviate. NECK: Supple without nuchal rigidity. No lymphadenopathy. No thyromegaly. Cervical spine is nontender. No JVD. HEART: Regular rate and rhythm LUNGS: Clear to auscultation bilaterally without wheezes, rales or rhonchi. No retractions or accessory muscle use. ABDOMEN: Positive bowel sounds x 4. Normal tympanic percussion. Soft, tender to palpation lower abdomen, without masses or organomegaly. Nielsen sign negative. No guarding or rebound tenderness. No CVA tenderness MUSCULOSKELETAL: No muscle atrophy, erythema, or edema noted. 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 Normal sensation to light and sharp touch. No focal neurological deficits. Course Administered Medications Magnesium Sulfate/Dextrose (Magnesium Sulfate / D5w) 1 gm in 100 mls @ 50 mls/hr IV Q2H ALEKS Stop: 03/11/22 04:44 Last Admin: 05/23/21 01:22 Dose: 50 mls/hr Documented by: [id number] Discontinued Medications Acetaminophen (Acetaminophen 325 Mg Tab) 650 mg PO NOW STA Stop: 05/23/21 00:17 Last Admin: 05/23/21 00:47 Dose: 650 mg Documented by: [id number] Meropenem 2,000 mg/ Sodium (Chloride) 100 mls @ 200 mls/hr IV NOW STA; Protocol Stop: 05/22/21 23:22 Last Admin: 05/22/21 23:55 Dose: 200 mls/hr Documented by: [id number] Daptomycin 665 mg/ Syringe 13.3 mls @ 6.65 mls/min IV ONE ONE; Protocol Stop: 05/22/21 23:01 Last Admin: 05/22/21 23:56 Dose: 6.65 mls/min Documented by: [id number] Sodium Chloride (Nss 1000ml) 1,000 mls @ 999 mls/hr IV .Q1H1M ONE Stop: 05/23/21 00:03 Last Admin: 05/22/21 23:55 Dose: 999 mls/hr Documented by: [id number] Sodium Chloride (Nss 1000ml) 1,000 mls @ 999 mls/hr IV .Q1H1M ONE Stop: 05/23/21 01:13 Last Admin: 05/23/21 01:22 Dose: 999 mls/hr Documented by: [id number] Acetaminophen (Ofirmev) 1,000 mg in 100 mls @ 400 mls/hr IV NOW STA Stop: 05/23/21 01:50 Last Admin: 05/23/21 02:00 Dose: 400 mls/hr Documented by: [id number] Medical Decision Making Medical Records Attestation: I reviewed the patient's medical records. Home Medications Current Medication List: was personally reviewed by me Laboratory Data Attestation: I reviewed the patient's lab results. Result diagrams: 05/22/21 23:10 05/22/21 23:10 Lab Results 05/22/21 05/22/21 05/22/21 Range/Units 23:10 23:10 23:10 WBC 10.55 (4.8-10.8) K/uL RBC 3.75 L (4.2-5.4) M/uL Hgb 11.0 L (12.0-16.0) g/dL Hct 34.1 L (37-47) % MCV 90.9 (80-100) fL MCH 29.3 (25-34) pg MCHC 32.3 (32-36) g/dL RDW Std Deviation 44.9 (36.4-46.3) fL RDW Coeff of [place] 13.5 (11.5-14.5) % Plt Count 319 (130-400) K/uL MPV 8.8 (7.4-10.4) fL Immature Gran % (Auto) 0.3 % Neut % (Auto) 86.7 % Lymph % (Auto) 10.1 % Greene % (Auto) 2.5 % Eos % (Auto) 0.2 % Baso % (Auto) 0.2 % Neut # (Auto) 9.15 H (1.4-6.5) K/uL Lymph # (Auto) 1.07 L (1.2-3.4) K/uL Greene # (Auto) 0.26 (0.11-0.59) K/uL Eos # (Auto) 0.02 (0-0.5) K/uL Baso # (Auto) 0.02 (0-0.2) K/uL Immature Gran # (Auto) 0.03 H (0.00-0.02) K/uL PT (9.0-12.0) Seconds INR (0.9-1.1) APTT (21.0-31.0) Seconds PTT Ratio Sodium 130 L (136-145) mmol/L Potassium 4.7 (3.5-5.1) mmol/L Chloride 100 (98-107) mmol/L Carbon Dioxide 22 (21-32) mmol/L Anion Gap 8 (3-11) BUN 34 H (6-23) mg/dl Creatinine 1.62 H (0.6-1.2) mg/dl Est Cr Clr Drug Dosing Not Reportable Est GFR ( Amer) 39.9 ml/min Est GFR (Non-Af Amer) 34.4 ml/min BUN/Creatinine Ratio 21.0 H (10-20) Glucose 180 H (70-99(Fasting)) mg/dl Osmolality (280-300) mOsm/kg Lactate (0.4-2.0) mmol/L Calcium 7.8 L (8.5-10.1) mg/dl Magnesium 1.5 L (1.7-2.4) mg/dl Total Bilirubin 0.5 (0.2-1.0) mg/dl AST 17 (13-39) U/L ALT 13 (7-52) U/L Alkaline Phosphatase 44 (34-104) U/L Troponin I < 0.03 (0-0.04) ng/ml Total Protein 7.1 (6.0-8.3) gm/dl Albumin 3.7 (3.4-5.0) gm/dl Globulin 3.4 (2.5-4.0) gm/dl Albumin/Globulin Ratio 1.1 (0.9-2) Procalcitonin 0.12 (0-0.5) ng/ml Adenovirus (PCR) (NotDetected) B. pertussis DNA (PCR) (NotDetected) B.parapertussis DNA PCR (NotDetected) C. pneumoniae DNA (PCR) (NotDetected) Coronavirus OC43 (PCR) (NotDetected) Coronavirus HKU1 (PCR) (NotDetected) Coronavirus 229E (PCR) (NotDetected) SARS-CoV-2 (PCR) (NotDetected) Coronavirus NL63 (PCR) (NotDetected) Human Metapneumovir PCR (NotDetected) Influenza Type A (PCR) (NotDetected) Influenza Type B (PCR) (NotDetected) M. pneumoniae (PCR) (NotDetected) Parainfluenza 1 (PCR) (NotDetected) Parainfluenza 2 (PCR) (NotDetected) Parainfluenza 3 (PCR) (NotDetected) Parainfluenza 4 (PCR) (NotDetected) RSV (PCR) (NotDetected) Entero/Rhino (PCR) (NotDetected) 05/22/21 05/22/21 05/22/21 Range/Units 23:10 23:10 23:10 WBC (4.8-10.8) K/uL RBC (4.2-5.4) M/uL Hgb (12.0-16.0) g/dL Hct (37-47) % MCV (80-100) fL MCH (25-34) pg MCHC (32-36) g/dL RDW Std Deviation (36.4-46.3) fL RDW Coeff of [place] (11.5-14.5) % Plt Count (130-400) K/uL MPV (7.4-10.4) fL Immature Gran % (Auto) % Neut % (Auto) % Lymph % (Auto) % Greene % (Auto) % Eos % (Auto) % Baso % (Auto) % Neut # (Auto) (1.4-6.5) K/uL Lymph # (Auto) (1.2-3.4) K/uL Greene # (Auto) (0.11-0.59) K/uL Eos # (Auto) (0-0.5) K/uL Baso # (Auto) (0-0.2) K/uL Immature Gran # (Auto) (0.00-0.02) K/uL PT 10.9 (9.0-12.0) Seconds INR 1.0 (0.9-1.1) APTT 27.6 (21.0-31.0) Seconds PTT Ratio 1.0 Sodium (136-145) mmol/L Potassium (3.5-5.1) mmol/L Chloride (98-107) mmol/L Carbon Dioxide (21-32) mmol/L Anion Gap (3-11) BUN (6-23) mg/dl Creatinine (0.6-1.2) mg/dl Est Cr Clr Drug Dosing Est GFR ( Amer) ml/min Est GFR (Non-Af Amer) ml/min BUN/Creatinine Ratio (10-20) Glucose (70-99(Fasting)) mg/dl Osmolality 291 (280-300) mOsm/kg Lactate 2.1 H* (0.4-2.0) mmol/L Calcium (8.5-10.1) mg/dl Magnesium (1.7-2.4) mg/dl Total Bilirubin (0.2-1.0) mg/dl AST (13-39) U/L ALT (7-52) U/L Alkaline Phosphatase (34-104) U/L Troponin I (0-0.04) ng/ml Total Protein (6.0-8.3) gm/dl Albumin (3.4-5.0) gm/dl Globulin (2.5-4.0) gm/dl Albumin/Globulin Ratio (0.9-2) Procalcitonin (0-0.5) ng/ml Adenovirus (PCR) (NotDetected) B. pertussis DNA (PCR) (NotDetected) B.parapertussis DNA PCR (NotDetected) C. pneumoniae DNA (PCR) (NotDetected) Coronavirus OC43 (PCR) (NotDetected) Coronavirus HKU1 (PCR) (NotDetected) Coronavirus 229E (PCR) (NotDetected) SARS-CoV-2 (PCR) (NotDetected) Coronavirus NL63 (PCR) (NotDetected) Human Metapneumovir PCR (NotDetected) Influenza Type A (PCR) (NotDetected) Influenza Type B (PCR) (NotDetected) M. pneumoniae (PCR) (NotDetected) Parainfluenza 1 (PCR) (NotDetected) Parainfluenza 2 (PCR) (NotDetected) Parainfluenza 3 (PCR) (NotDetected) Parainfluenza 4 (PCR) (NotDetected) RSV (PCR) (NotDetected) Entero/Rhino (PCR) (NotDetected) 05/22/21 05/23/21 Range/Units 23:30 01:16 WBC (4.8-10.8) K/uL RBC (4.2-5.4) M/uL Hgb (12.0-16.0) g/dL Hct (37-47) % MCV (80-100) fL MCH (25-34) pg MCHC (32-36) g/dL RDW Std Deviation (36.4-46.3) fL RDW Coeff of [place] (11.5-14.5) % Plt Count (130-400) K/uL MPV (7.4-10.4) fL Immature Gran % (Auto) % Neut % (Auto) % Lymph % (Auto) % Greene % (Auto) % Eos % (Auto) % Baso % (Auto) % Neut # (Auto) (1.4-6.5) K/uL Lymph # (Auto) (1.2-3.4) K/uL Greene # (Auto) (0.11-0.59) K/uL Eos # (Auto) (0-0.5) K/uL Baso # (Auto) (0-0.2) K/uL Immature Gran # (Auto) (0.00-0.02) K/uL PT (9.0-12.0) Seconds INR (0.9-1.1) APTT (21.0-31.0) Seconds PTT Ratio Sodium (136-145) mmol/L Potassium (3.5-5.1) mmol/L Chloride (98-107) mmol/L Carbon Dioxide (21-32) mmol/L Anion Gap (3-11) BUN (6-23) mg/dl Creatinine (0.6-1.2) mg/dl Est Cr Clr Drug Dosing Est GFR ( Amer) ml/min Est GFR (Non-Af Amer) ml/min BUN/Creatinine Ratio (10-20) Glucose (70-99(Fasting)) mg/dl Osmolality (280-300) mOsm/kg Lactate 1.9 (0.4-2.0) mmol/L Calcium (8.5-10.1) mg/dl Magnesium (1.7-2.4) mg/dl Total Bilirubin (0.2-1.0) mg/dl AST (13-39) U/L ALT (7-52) U/L Alkaline Phosphatase (34-104) U/L Troponin I (0-0.04) ng/ml Total Protein (6.0-8.3) gm/dl Albumin (3.4-5.0) gm/dl Globulin (2.5-4.0) gm/dl Albumin/Globulin Ratio (0.9-2) Procalcitonin (0-0.5) ng/ml Adenovirus (PCR) DETECTED A* (NotDetected) B. pertussis DNA (PCR) Not Detected (NotDetected) B.parapertussis DNA PCR Not Detected (NotDetected) C. pneumoniae DNA (PCR) Not Detected (NotDetected) Coronavirus OC43 (PCR) Not Detected (NotDetected) Coronavirus HKU1 (PCR) Not Detected (NotDetected) Coronavirus 229E (PCR) Not Detected (NotDetected) SARS-CoV-2 (PCR) Not Detected (NotDetected) Coronavirus NL63 (PCR) Not Detected (NotDetected) Human Metapneumovir PCR Not Detected (NotDetected) Influenza Type A (PCR) Not Detected (NotDetected) Influenza Type B (PCR) Not Detected (NotDetected) M. pneumoniae (PCR) Not Detected (NotDetected) Parainfluenza 1 (PCR) Not Detected (NotDetected) Parainfluenza 2 (PCR) Not Detected (NotDetected) Parainfluenza 3 (PCR) Not Detected (NotDetected) Parainfluenza 4 (PCR) Not Detected (NotDetected) RSV (PCR) Not Detected (NotDetected) Entero/Rhino (PCR) Not Detected (NotDetected) Imaging Data Attestation: I personally reviewed and interpreted this imaging study as follows: MDM Narrative Prior records/ancillary studies reviewed. Triage Nursing notes reviewed. Additional history obtained from EMS. The patient's history was concerning for fever abdominal pain diarrhea and generalized illness. Differential diagnosis: Etiologies such as sepsis, UTI, pneumonia, metabolic, electrolyte abnormalities, cardiac sources, intracerebral event, toxicologic, neurologic, as well as others were entertained. Physical examination: As above. Pertinent findings were abdominal pain fever. Vital signs reviewed and revealed febrile. ER treatment provided: IV fluid resuscitation with Normal saline solution, 2000 mL bolus. Blood and urine cultures Antibiotics: Meropenem, daptomycin motrin, APAP, Mg An order was placed for continuous cardiac monitoring. The monitor shows a rate of 60-100 with a sinus rhythm. On reassessment the patient vital signs improved. Diagnostics interpretation by me: ECG: Ordered for sepsis EKG: Poor baseline, normal sinus, Q-wave in lead III, no acute ST-T wave changes, rate of 116. Patient sinus tachycardia with Q waves in inferior leads interpreted by myself I think arrhythmia is unlikely. EKG shows normal sinus rhythm with no interval abnormalities such as QT prolongation or WPW. There are no findings to suggest Brugada syndrome. Cardiac monitoring in the emergency department reveals no tachycardic or bradycardic dysrhythmia. Hypertrophic cardiomyopathy was considered but there are no clear historical elements pointing toward this. EKG is not suggestive. The QRS voltage is not extremely large The labs slightly elevated creatinine LFTs revealed. Cardiac enzymes were negative. Positive adenovirus Serum Lactate measurement was slightly elevated. Blood and urine cultures are pending. [address] [place] [address] / Director: Phill Yoder M.D. Clinical Laboratory Report Name: MADELINE LEZAMA Acct: [id number] Status: [place] 1960 [facility] [place] 05/06/21 Age: 60 Sex: F Dis Date: 05/12/21 Loc: Medical/Surgical/Ortho [address] [place] [address]/Bed: N383-1 Spec: [id number] Collected: 05/06/21 Received: 05/06/[address]: Marques Norman, PAPOC Source: Blood OV Order: Ordered: Blood Culture Comments: Comment Default is separate sites, same time Procedure Result Verified Site Blood Culture Aerobic Final 05/08/21-08 Organism 1 Escherichia coli Sens Sensitivities to Follow Phoned positive Blood Culture Gram Stain report to RAMONA ARZOLA on 05/06/21 at 1617 [place] [id number]. [place] [id number]. E coli RX M.I.C. --- --------- Amox/Clav S <=8/4 Ampicillin S <=8 Amp/Sul S <=8/4 Cefazolin S <=2 Cefepime S <=2 Ceftriaxone S <=1 Ciprofloxacin S <=0.25 Ertapenem S <=0.5 Gentamicin S <=4 Levofloxacin S <=0.5 Meropenem S <=1 Tobramycin S <=4 Trimeth/Sulfa R >/38 Pip/Tazo S <=16 S = SENSITIVE I = INTERMEDIATE R = RESISTANT Blood Culture Anaerobic Final 05/08/21-08 Organism 1 Escherichia coli Sens Sensitivities to Follow Phoned positive Blood Culture Gram Stain report to RAMONA ARZOLA on 05/06/21 at 1618 [place] [id number]. [place] [id number]. Imaging studies: Chest xray revealed no acute consolidation, pneumothorax or free air per my i nterpretation Preliminary Findings Only See Final Report For Complete Findings CT ABDOMEN & PELVIS Without Contrast: Comparison: CT abdomen and pelvis 05/07/21 No renal stone or hydronephrosis. Mild renal scarring and atrophy bilaterally. Colonic diverticulosis without evidence of acute diverticulitis. Normal appendix. No free or free fluid. No bowel obstruction. Atherosclerotic calcifications of aorta and its branches. Postsurgical changes and instrumented fusion of L3-S1. Chronic anterior compression deformity of L1 vertebral body. 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 Streak artifact from hardware and overlying arms limits evaluation. Radiologist: Wade Hinds MD Consultation: A consultation was placed with the hospitalist. The case was discussed and diagnostics were reviewed. The patient was evaluated in the ER for further treatment. Exam and history concerning for adenovirus positive with sepsis with recent history of bacteremia. Patient was started broad-spectrum antibiotics.Sepsis work-up was initiated. Patient will be evaluated by medicine for admission.Patient was medicated as above.Results were reviewed and all questions were answered. The chart was completed utilizing [employer] Speech voice recognition software. Grammatical errors, random word insertions, pronoun errors, and incomplete sentences are an occassional consequence of this system due to software limitations, ambient noise, and hardware issues. Any formal questions or concerns about the content, text, or information contained within the body of this dictation should be directly addressed to the physician assistant elementary teacher for clarification. Impression & Plan Sepsis, Adenovirus infection Discharge Plan Visit Data Chief Complaint: Illness ED Provider: Pedro Pablo Kumar ED Midlevel Provider: Yenifer Fong Discharge Problem: Sepsis, Adenovirus infection Patient Disposition: Admitted As Inpatient Condition: Fair Forms Stand Alone Forms: My [facility] [place] [employer] Prescriptions Prescriptions: No Action metformin 500 mg tablet 500 mg PO BIDM RF: 0 hydroxyzine HCl 50 mg tablet 50 mg PO Q8 RF: 0 fluvoxamine 100 mg tablet 100 mg PO BID RF: 0 Tivicay 50 mg tablet 50 mg PO HS RF: 0 Descovy 200-25 mg tablet 1 tab PO HS RF: 0 risperidone 0.5 mg tablet 0.5 mg PO Q8 RF: 0 clonazepam 0.5 mg tablet 0.5 mg PO BID RF: 0 aspirin 81 mg Tablet,Chewable 81 mg PO DAILY RF: 0 alfuzosin 10 mg tablet extended release 24 hr 10 mg PO DAILY RF: 0 cyanocobalamin (vitamin B-12) 500 mcg Tablet, Sublingual 500 mcg SUBLINGUAL DAILY RF: 0 multivitamin with folic acid [Daily-[place] (with folic acid)] 400 mcg tablet 1 tab PO DAILY RF: 0 Novolin R Flexpen 100 unit/mL (3 mL) insulin pen 0 unit SUBCUT ACHS RF: 0 acetaminophen [Tylenol] 325 mg Tablet 650 mg PO Q4H MDD 3 GRAMS/24 HOURS PRN (Reason: FEVER/PAIN) RF: 0 famotidine 20 mg Tablet 20 mg PO BID RF: 0 buspirone 10 mg Tablet 20 mg PO BID RF: 0 Basaglar KwikPen U-100 Insulin 100 unit/mL (3 mL) Insulin Pen 15 unit SUBCUT DAILY RF: 0 guaifenesin [Mucinex] 600 mg Tablet Extended Release 12hr 600 mg PO Q12H PRN (Reason: Congestion) RF: 0 Referrals Referrals: Rosita Kim [Primary Care Provider] -
[2021-05-22 23:38] LABS: Partial Thromboplastin Time 27.6 Seconds (21.0-31.0); Prothrombin Time 10.9 Seconds (9.0-12.0)
[2021-05-22 23:57] LABS: Alanine Aminotransferase 13 U/L (7-52); Albumin Globulin Ratio 1.1 (0.9-2); Albumin Level 3.7 gm/dl (3.4-5.0); Alkaline Phosphatase 44 U/L (34-104); Anion Gap 8 (3-11); Aspartate Aminotransferase 17 U/L (13-39); Bilirubin,Total 0.5 mg/dl (0.2-1.0); Blood Urea Nitrogen 34 mg/dl (6-23); Calcium 7.8 mg/dl (8.5-10.1); Carbon Dioxide 22 mmol/L (21-32); Chloride 100 mmol/L (98-107); Est GFR (African American) 39.9 ml/min; Est GFR (Non-African American) 34.4 ml/min; Globulin 3.4 gm/dl (2.5-4.0); Glucose 180 mg/dl (70-99(Fasting)); Magnesium 1.5 mg/dl (1.7-2.4); Potassium 4.7 mmol/L (3.5-5.1); Sodium 130 mmol/L (136-145); Total Protein 7.1 gm/dl (6.0-8.3); Troponin I < 0.03 ng/ml (0-0.04)
[2021-05-23] MEDS ORDERED: SODIUM CHLORIDE 0.9% 1000ML 1,000 ML IV ONE (00:13)
[2021-05-23] MEDS ORDERED: ACETAMINOPHEN 325 MG TAB PO STA (00:16)
[2021-05-23 00:45] LABS: Bordetella parapertussis PCR Not Detected (NotDetected); Bordetella pertussis PCR Not Detected (NotDetected); Chlamydia pneumoniae PCR Not Detected (NotDetected); Coronavirus 229E PCR Not Detected (NotDetected); Coronavirus CoV-2 (COVID19)PCR Not Detected (NotDetected); Coronavirus HKU1 PCR Not Detected (NotDetected); Coronavirus NL63 PCR Not Detected (NotDetected); Coronavirus OC43PCR Not Detected (NotDetected); Human Metapneumovirus PCR Not Detected (NotDetected); Influenza A PCR Not Detected (NotDetected); Influenza B PCR Not Detected (NotDetected); Mycoplasma pneumoniae PCR Not Detected (NotDetected); Parainfluenza Virus 1 PCR Not Detected (NotDetected); Parainfluenza Virus 2 PCR Not Detected (NotDetected); Parainfluenza Virus 3 PCR Not Detected (NotDetected); Parainfluenza Virus 4 PCR Not Detected (NotDetected); Respiratory Syncytial VirusPCR Not Detected (NotDetected); Rhinovirus/Enterovirus PCR Not Detected (NotDetected)
[2021-05-23 01:12] LABS: Adenovirus PCR DETECTED (NotDetected)
[2021-05-23] MEDS: MAGNESIUM SULFATE / D5W 1 GM/100 ML BAG IV SCH ×4 (01:22→03:36)
[2021-05-23] MEDS ORDERED: ACETAMINOPHEN 1,000 MG/100 ML VIAL IV STA (01:36)
--- NOTE | 2021-05-23 02:02 | History & Physical Report ---
Date of Service May 23, 2021 Assessment & Plan (1) Severe sepsis: Plan: SIRS plus lactic acid elevation plus ARF on CKD ? Possibly from right knee infection History E. coli UTI bacteremia last month status post Rx hx MRSA as per records hypertension, BP on the lower side Hyponatremia secondary to illness DM2, insulin requiring, well-controlled as of recent hemoglobin A1c of 21 April 2021 chronic anemia, hemoglobin at baseline HIV, well-controlled as of [facility] [place] ID note January 2021 Past history hx DVT as per records past tobacco abuse. Medical telemetry CS, Daptomycin, Azactam for now Plain x-ray right knee Orthopedics consult Re: Right knee pain Monitor creatinine, lactic acid response to IVF Basal insulin, ISS BG goal 1 10-1 40, carb count coverage DVT prophylaxis per Lovenox subcu DNR as per patient's prior directives Text document was generated using Holvi voice recognition software. It may contain grammatical or spelling errors. Kindly contact undersigned for clarification of any documentation item in question. History of Present Illness Chief Complaint: Fever, chills Primary Care Provider: Dr. Springer History obtained from patient and records. Medical history significant for hypertension, DM2, insulin requiring, mood disorder, arthritis, CRI (baseline creatinine 1.3), chronic anemia (baseline hemoglobin of 11), history of MRSA, HIV, hx DVT as per records, past tobacco abuse. Recent confinement last month for sepsis secondary to E. coli bacteremia attributed to complicated UTI, RLE cellulitis. Patient discharged on ciprofloxacin course. 2 days ago, patient started feeling sick again. Fever chills without cough, abdominal pain, dysuria, diarrhea symptoms. Worsening right knee pain. Shortness of breath from fever as per patient. Patient denies headache symptoms. Poor appetite with emesis. Patient given Daptomycin and Meropenem at the ER for sepsis. MEDICAL HISTORY: As above. SURGERIES: Knee surgery, she had carpal tunnel, foot surgeries, toe amputation, back surgery, FAMILY HISTORY: There is a family history of diabetes, heart disease. PERSONAL AND SOCIAL HISTORY:Past tobacco abuse. No chronic alcohol intake. On disability. Assisted living facility resident. Allergies Allergy/AdvReac Type Severity Reaction Status Date / Time amoxicillin [From Augmentin] Allergy Severe MERLE Verified 02/14/21 02:00 SYNDROME clams Allergy Severe HIVES Verified 05/23/21 00:39 clavulanic acid Allergy Severe MERLE Verified 02/14/21 02:00 [From Augmentin] SYNDROME ceftriaxone Allergy Intermediate HIVES, Rash Verified 05/23/21 00:39 levofloxacin Allergy Intermediate Hives Verified 02/14/21 02:00 Penicillins Allergy Intermediate CHILLS/RYAN Verified 05/23/21 00:39 RS rosiglitazone [From Avandia] Allergy Intermediate Hives Verified 02/14/21 02:00 vancomycin AdvReac Mild RED MAN Verified 05/23/21 00:39 SYNDROME Home Medications Medication Instructions Recorded Confirmed Type risperidone 0.5 mg tablet 0.5 mg PO Q8 06/07/18 05/23/21 History clonazepam 0.5 mg tablet 0.5 mg PO BID 11/11/18 05/23/21 History dolutegravir 50 mg tablet (Tivicay) 50 mg PO HS 02/22/20 05/23/21 History emtricitabine 200 mg-tenofovir 1 tab PO HS 02/22/20 05/23/21 History alafenamide fumarate 25 mg tablet (Descovy) fluvoxamine 100 mg tablet 100 mg PO BID 02/22/20 05/23/21 History hydroxyzine HCl 50 mg tablet 50 mg PO Q8 02/22/20 05/23/21 History metformin 500 mg tablet 500 mg PO BIDM 02/22/20 05/23/21 History acetaminophen 325 mg tablet 650 mg PO Q4H PRN MDD 3 GRAMS/24 02/14/21 05/23/21 History (Tylenol) HOURS buspirone 10 mg tablet 20 mg PO BID 02/14/21 05/23/21 History famotidine 20 mg tablet 20 mg PO BID 02/14/21 05/23/21 History guaifenesin 600 mg tablet, 600 mg PO Q12H PRN 02/14/21 05/23/21 History extended release 12 hr (Mucinex) insulin glargine 100 unit/mL (3 15 unit SUBCUT DAILY 02/14/21 05/23/21 History mL) subcutaneous pen (Basaglar KwikPen U-100 Insulin) alfuzosin 10 mg tablet,extended 10 mg PO DAILY 05/06/21 05/23/21 History release 24 hr aspirin 81 mg chewable tablet 81 mg PO DAILY 05/06/21 05/23/21 History cyanocobalamin (vitamin B-12) 500 500 mcg SUBLINGUAL DAILY 05/06/21 05/23/21 History mcg sublingual tablet insulin regular human 100 unit/mL 0 unit SUBCUT ACHS 05/23/21 05/23/21 History (3 mL) subcutaneous pen (Novolin R Flexpen) multivitamin with folic acid 400 1 tab PO DAILY 05/23/21 05/23/21 History mcg tablet (Daily-[place] (with folic acid)) Past Med/Surg History Medical History Acute dehydration Acute hyperglycemia Acute venous thrombosis GEGE (acute kidney injury) Diabetes Falls History of DVT (deep vein thrombosis) HIV (human immunodeficiency virus infection) Hypertension Partial nontraumatic amputation of foot UTI (urinary tract infection) Surgical History History of carpal tunnel release of both wrists History of carpal tunnel surgery Social History Smoking Status: Former smoker Hx Alcohol Use: No Hx Substance Use: No Preferred Language: Thai Communication Ability: Effective Marketing Proposal Specialist Required: No Beliefs That Will Affect Care: None marital status: Single Current Living Situation: Personal Care Facility How many Children do You have: 1 Feels Safe at Home: Yes Safety Concerns: Feels Safe At This Time Assistive Devices: Wheelchair Review of Systems Review of Systems: As per HPI, all 10 systems reviewed, all other ROS negative Physical Exam Physical Exam: GENERAL: uncomfortable, ill looking, morbidly obese, no respiratory distress SKIN: Pallor, warm HEENT: Pale palpebral conjunctivae, no ptosis, dry buccal mucosa NECK : Supple, short neck, no tenderness CHEST : CTA, no tenderness HEART : Tachycardic, no obvious murmurs ABDOMEN: Some distention, nontender EXTREMITIES : LLE amputation stump, tender right knee swelling NEUROLOGIC : Coherent, no facial asymmetry, no other gross focality Results & Data Results & Data ([facility]) Vital Signs (Past 12 Hours) Vital Signs Temp Pulse Pulse Resp BP BP Pulse Ox 05/23/21 01:15 128 H 22 05/23/21 01:00 110 H 22 97 05/23/21 00:48 38.5 C H 116 H 24 132/70 98 05/23/21 00:19 115 H 23 95 05/22/21 22:51 37.7 C H 116 H 116 H 18 137/90 98 05/22/21 22:19 37.7 C H 115 H 118 H 18 102/69 102/69 98 Laboratory Results Laboratory Results WBC 10.55 K/uL (4.8-10.8) 05/22/21 23:10 RBC 3.75 M/uL (4.2-5.4) L 05/22/21 23:10 Hgb 11.0 g/dL (12.0-16.0) L 05/22/21 23:10 Hct 34.1 % (37-47) L 05/22/21 23:10 MCV 90.9 fL (80-100) 05/22/21 23:10 MCH 29.3 pg (25-34) 05/22/21 23:10 MCHC 32.3 g/dL (32-36) 05/22/21 23:10 RDW Std Deviation 44.9 fL (36.4-46.3) 05/22/21 23:10 RDW Coeff of [place] 13.5 % (11.5-14.5) 05/22/21 23:10 Plt Count 319 K/uL (130-400) 05/22/21 23:10 MPV 8.8 fL (7.4-10.4) 05/22/21 23:10 Immature Gran % (Auto) 0.3 % 05/22/21 23:10 Neut % (Auto) 86.7 % 05/22/21 23:10 Lymph % (Auto) 10.1 % 05/22/21 23:10 [place] % (Auto) 2.5 % 05/22/21 23:10 Eos % (Auto) 0.2 % 05/22/21 23:10 Baso % (Auto) 0.2 % 05/22/21 23:10 Neut # (Auto) 9.15 K/uL (1.4-6.5) H 05/22/21 23:10 Lymph # (Auto) 1.07 K/uL (1.2-3.4) L 05/22/21 23:10 [place] # (Auto) 0.26 K/uL (0.11-0.59) 05/22/21 23:10 Eos # (Auto) 0.02 K/uL (0-0.5) 05/22/21 23:10 Baso # (Auto) 0.02 K/uL (0-0.2) 05/22/21 23:10 Immature Gran # (Auto) 0.03 K/uL (0.00-0.02) H 05/22/21 23:10 PT 10.9 Seconds (9.0-12.0) 05/22/21 23:10 INR 1.0 (0.9-1.1) 05/22/21 23:10 APTT 27.6 Seconds (21.0-31.0) 05/22/21 23:10 PTT Ratio 1.0 05/22/21 23:10 Sodium 130 mmol/L (136-145) L 05/22/21 23:10 Potassium 4.7 mmol/L (3.5-5.1) 05/22/21 23:10 Chloride 100 mmol/L (98-107) 05/22/21 23:10 Carbon Dioxide 22 mmol/L (21-32) 05/22/21 23:10 Anion Gap 8 (3-11) 05/22/21 23:10 BUN 34 mg/dl (6-23) H 05/22/21 23:10 Creatinine 1.62 mg/dl (0.6-1.2) H 05/22/21 23:10 Est Cr Clr Drug Dosing Not Reportable 05/22/21 23:10 Est GFR ( Amer) 39.9 ml/min 05/22/21 23:10 Est GFR (Non-Af Amer) 34.4 ml/min 05/22/21 23:10 BUN/Creatinine Ratio 21.0 (10-20) H 05/22/21 23:10 Glucose 180 mg/dl (70-99(Fasting)) H 05/22/21 23:10 Osmolality 291 mOsm/kg (280-300) 05/22/21 23:10 Lactate 1.9 mmol/L (0.4-2.0) 05/23/21 01:16 Calcium 7.8 mg/dl (8.5-10.1) L 05/22/21 23:10 Magnesium 1.5 mg/dl (1.7-2.4) L 05/22/21 23:10 Total Bilirubin 0.5 mg/dl (0.2-1.0) 05/22/21 23: AST 17 U/L (13-39) 05/22/21 23: ALT 13 U/L (7-52) 05/22/21 23: Alkaline Phosphatase 44 U/L (34-104) 05/22/21 23: Troponin I < 0.03 ng/ml (0-0.04) 05/22/21 23: Total Protein 7.1 gm/dl (6.0-8.3) 05/22/21 23: Albumin 3.7 gm/dl (3.4-5.0) 05/22/21 23: Globulin 3.4 gm/dl (2.5-4.0) 05/22/21: Albumin/Globulin Ratio 1.1 (0.9-2) 05/22/21 23: Procalcitonin 0.12 ng/ml (0-0.5) 05/22/21 23:10 Adenovirus (PCR) DETECTED (NotDetected) A* 05/22/21 23:30 B. pertussis DNA (PCR) Not Detected (NotDetected) 05/22/21 23:30 B.parapertussis DNA PCR Not Detected (NotDetected) 05/22/21 23:30 C. pneumoniae DNA (PCR) Not Detected (NotDetected) 05/22/21 23:30 Coronavirus OC43 (PCR) Not Detected (NotDetected) 05/22/21 23:30 Coronavirus HKU1 (PCR) Not Detected (NotDetected) 05/22/21 23:30 Coronavirus 229E (PCR) Not Detected (NotDetected) 05/22/21 23:30 SARS-CoV-2 (PCR) Not Detected (NotDetected) 05/22/21 23:30 Coronavirus NL63 (PCR) Not Detected (NotDetected) 05/22/21 23:30 Human Metapneumovir PCR Not Detected (NotDetected) 05/22/21 23:30 Influenza Type A (PCR) Not Detected (NotDetected) 05/22/21 23:30 Influenza Type B (PCR) Not Detected (NotDetected) 05/22/21 23:30 M. pneumoniae (PCR) Not Detected (NotDetected) 05/22/21 23:30 Parainfluenza 1 (PCR) Not Detected (NotDetected) 05/22/21 23:30 Parainfluenza 2 (PCR) Not Detected (NotDetected) 05/22/21 23:30 Parainfluenza 3 (PCR) Not Detected (NotDetected) 05/22/21 23:30 Parainfluenza 4 (PCR) Not Detected (NotDetected) 05/22/21 23:30 RSV (PCR) Not Detected (NotDetected) 05/22/21 23:30 Entero/Rhino (PCR) Not Detected (NotDetected) 05/22/21 23:[address] abdomen pelvis initial read: No renal stone or hydronephrosis. Mild renal scarring and atrophybilaterally. Colonic diverticulosiswithout evidence of acute diverticulitis. Normal appendix. No free or free fluid. No bowel obstruction. Atherosclerotic calcifications of aorta and its branches. Postsurgical changes and instrumented fusion of L3-S1. Chronic anterior compression deformityof L1 vertebral body. 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 Streak artifact fromhardware and overlying arms limits evaluation Chest x-ray as per my interpretation no infiltrate
[2021-05-23] MEDS ORDERED: IBUPROFEN 800 MG TAB PO STA (02:26)
[2021-05-23] MEDS ORDERED: PROMETHAZINE HCL 12.5 MG in SODIUM CHLORIDE 0.9% 50 ML IV PRN (02:38)
[2021-05-23] MEDS ORDERED: HYDROmorphone INJ 0.5 MG/0.5 ML SYR IV PRN (02:38)
[2021-05-23] MEDS ORDERED: DEXTROSE 50% 50 ML SYRINGE IV PRN (04:37)
[2021-05-23] MEDS ORDERED: CARBOHYDRATES FOR HYPOGLYCEMIA PO PRN (04:37)
[2021-05-23] MEDS ORDERED: GLUCOSE 40% GEL 15 GM TUBE PO PRN (04:37)
[2021-05-23] MEDS ORDERED: GLUCAGON FOR INJ 1 MG VIAL SQ PRN (04:37)
[2021-05-23] MEDS ORDERED: GLUCOSE 10 TABS/TUBE PO PRN (04:37)
[2021-05-23 04:40] LABS: Appearance Urine Clear (Clear); Bacteria Urine Automated Negative (Negative); Bilirubin Urine Negative (Negative); Blood Urine Trace (Negative); Cast Urine Automated 0 /lpf (0-5); Color Urine Yellow; Glucose Urine UA Negative (Negative); Ketones Urine Trace (Negative); Leukocyte Esterase Urine Negative (Negative); Nitrite Urine Negative (Negative); Protein Urine Negative (Negative); RBC Urine Automated 0-4 /hpf (0-4); Specific Gravity Urine 1.019 (1.000-1.030); Urobilinogen Urine Negative (Negative); pH Urine 5.5 (4.5-7.5)
[2021-05-23] MEDS ORDERED: AZTREONAM CONSULT ACTIVE PRN (04:48)
[2021-05-23] MEDS ORDERED: AZTREONAM 2,000 MG in DEXTROSE 5% 100 ML IV ONE (05:00)
[2021-05-23] MEDS: INSULIN ASPART PER UNIT SC SCH ×5 (05:17→20:35)
[2021-05-23] MEDS: risperiDONE 0.5 MG TABLET PO SCH ×3 (05:55→21:23)
[2021-05-23] MEDS: hydrOXYzine HCl 25 MG TAB PO SCH ×3 (05:55→21:27)
[2021-05-23 06:53] LABS: Basophils # (auto) 0.02 K/uL (0-0.2); Basophils % (auto) 0.3 %; Eosinophils # (auto) 0.03 K/uL (0-0.5); Eosinophils % (auto) 0.4 %; Hematocrit (blood only) 32.3 % (37-47); Hemoglobin 10.3 g/dL (12.0-16.0); Immature Granulocytes # (auto) 0.04 K/uL (0.00-0.02); Immature Granulocytes % (auto) 0.5 %; Lymphocytes % (auto) 15.7 %; Mean Corpuscular Hemoglobin 28.9 pg (25-34); Mean Corpuscular Hgb Conc 31.9 g/dL (32-36); Mean Corpuscular Volume 90.7 fL (80-100); Monocytes # (auto) 0.23 K/uL (0.11-0.59); Neutrophils # (auto) 6.14 K/uL (1.4-6.5); Neutrophils % (auto) 80.1 %; Platelet Count 289 K/uL (130-400); RDW Coefficient of Variation 13.7 % (11.5-14.5); RDW Standard Deviation 45.4 fL (36.4-46.3); Red Blood Count 3.56 M/uL (4.2-5.4); White Blood Count 7.66 K/uL (4.8-10.8)
--- NOTE | 2021-05-23 07:03 | XRay Report ---
XR knee RT 1 or 2V routine CLINICAL HISTORY: Chronic right knee pain and swelling.. COMPARISON STUDY: 05/09/2021 TECHNIQUE: 2 right knee views FINDINGS: Bones: The bones are osteopenic. There is evidence for an old, healed supracondylar fracture. There i s no evidence for an acute fracture or dislocation. There is no lytic or blastic lesion. Joints: There is evidence for marked narrowing of all 3 joint compartments. Secondary degenerative ch anges are present and unchanged. There is no evidence for an intra-articular effusion. The bones are in anatomic alignment. Soft tissues: There is no focal soft tissue abnormality. There is no radiopaque foreign body. IMPRESSION: 1. No acute osseous pathology. 2. Osteopenia and marked osteoarthritis. 3. Old healed supracondylar femoral fracture. ACT 112: Negative or not required by law. Electronically signed by: Brodie Phillips M.D. 05/23/2021 7:02 AM
--- NOTE | 2021-05-23 07:16 | CT Scan Report ---
CT abd pelvis wo con CLINICAL HISTORY: flank pain sepsis arf TECHNIQUE: Helical axial images of the abdomen and pelvis were obtained. Automated dose lowering tech niques and/or adjustment according to patient size were utilized for this exam. This exam was perfor med without intravenous contrast. COMPARISON: None available at the time of this dictation. FINDINGS: Lower chest: No acute abnormality Liver: Unremarkable. No focal lesions are seen. Gallbladder and biliary tree: No calcified gallstones. Normal caliber wall. No intra- or extrahepatic biliary ductal dilation. Pancreas: Unremarkable, no focal lesions. Spleen: Unremarkable. Adrenals: Unremarkable. Kidneys and ureters: Nonobstructive nephrolithiasis is seen. Bladder: Unremarkable. Reproductive organs: Unremarkable. Bowel: Diverticulosis is seen without evidence of diverticulitis. The appendix is normal. Lymph nodes Retroperitoneal: Unremarkable. Mesenteric: Unremarkable. Pelvic: Unremarkable. Peritoneum: Normal. Vessels: Unremarkable. Abdominal wall: A fat-containing umbilical hernia is seen. Bones: Redemonstration of anterior compression deformity of L1 and posterior fixation of L3 S1. Patie nt is status post left lower extremity amputation at the level of the mid femoral shaft. IMPRESSION: No acute abnormalities, in particular no evidence of obstructive nephrolithiasis. ACT 112: Negative or not required by law. Electronically signed by: Messi Estrella M.D. 05/23/2021 7:14 AM
[2021-05-23 07:29] LABS: Calcium 7.3 mg/dl (8.5-10.1); Creatinine Clr Calc Pharmacy 51.9 ml/min; Est GFR (African American) 46.3 ml/min; Magnesium 2.2 mg/dl (1.7-2.4)
--- NOTE | 2021-05-23 08:05 | XRay Report ---
XR chest 1V portable CLINICAL HISTORY: SEPSIS TECHNIQUE: Single frontal radiograph of the chest was obtained. Comparison: Comparison is made to chest one view 05/06/2021 FINDINGS: No lines and tubes are seen. Calcified aortic knob is seen. The lungs are clear. No evidence of pleur al effusion or pneumothorax. IMPRESSION: No acute chest disease. ACT 112: Negative or not required by law. Electronically signed by: Messi Estrella M.D. 05/23/2021 8:04 AM
[2021-05-23] MEDS: ALFUZOSIN HCL 10 MG TAB PO SCH (09:07)
[2021-05-23] MEDS: ASPIRIN 81 MG ECTAB PO SCH (09:07)
[2021-05-23] MEDS: clonazePAM 0.5 MG TAB PO SCH ×3 (09:08→20:25)
[2021-05-23] MEDS: CYANOCOBALAMIN (B-12) 500 MCG TABLET PO SCH (09:08)
[2021-05-23] MEDS: fluvoxaMINE MALEATE 50 MG TAB PO SCH ×2 (09:08→20:28)
[2021-05-23] MEDS: FAMOTIDINE 20 MG TAB PO SCH ×2 (09:08→20:28)
[2021-05-23] MEDS: ENOXAPARIN INJ 40 MG/0.4 ML SYR SQ SCH (09:08)
[2021-05-23] MEDS: MULTIVITAMIN TAB PO SCH (09:08)
[2021-05-23] MEDS: busPIRone 5 MG TAB PO SCH ×2 (09:08→20:27)
[2021-05-23] MEDS: INSULIN GLARGINE SOLOSTAR 100 UNITS/ML 3 ML PEN SQ SCH (09:13)
--- NOTE | 2021-05-23 10:47 | Orthopedic Consultation ---
Date of Consultation May 23, 2021 Assessment & Plan (1) Right knee pain: X-rays reviewed. Chronic severe osteoarthritis of the right knee with chronic lateral dislocation of her patella. Noted calcific loose bodies and osteophytes noted as well. No large effusion noted. I will discuss the case with Dr. Whiting who is on-call. I am not overly convinced that the patient has an infected right knee at this time. The swelling she has appears chronic to me and she has no noted erythema of the knee. The knee does feel warm but is not overtly hot to the touch. Patient was on p.o. Cipro from her previous admission which was supposed to be finished by May 20. Currently her white count is normal. Sed rate and CRP are pending. Discussed case with Dr. Whiting. Normal ESR. CRP 5. Continue to follow blood cx. With the somewhat increased pain over the anterior knee, she could possibly have a superficial infection going on even though no fluctuance noted. We will get an MRI of the right knee. Hold off on aspiration at this time. Continue antibx per Med Service. History of Present Illness Reason for Consultation: Right knee pain Attending Physician: German Araya MD History of Present Illness This is a 60-year-old female with past medical history significant for type 2 diabetes, diabetic retinopathy, history of multiple thyroid nodules, vitamin D deficiency, vitamin B12 deficiency, morbid obesity, history of UTI, urge incontinence, anemia and chronic kidney disease, history of MRSA infection, HIV positive, depression, anxiety, history of DVT, status post E. coli sepsis from previous admission at the end of April. Patient is known to our practice and has had multiple lower extremity operations over time. She had had multiple surgeries on her feet in the past secondary to osteomyelitis which included toe amputations and transmetatarsal amputation. 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 This was treated and eventually patient underwent revision left TKA. From the history this sounds like this revision TKA also became infected chronically and this eventually was treated with a left AKA in 2016. Patient has also noted severe osteoarthritis of her right knee with question of supracondylar fracture in the past. Assuming the osteoarthritis was never treated with TKA secondary to her previous infections. Patient had been admitted at the end of April with E. coli bacteremia. She was discharged back to her residence at a nursing facility. Several days prior to this admission, the patient began feeling poorly with fever chills without cough, abdominal pain, dysuria, diarrhea symptoms and worsening right knee pain. She was thusly admitted under the sepsis protocol and we have been asked to see her for her right knee pain. Although I can wake her up to answer questions, she does answer some questions appropriately but falls back to sleep very quickly. Some answers that she mumbles and is hard to understand. She does not appear to be in acute distress. Allergies Allergy/AdvReac Type Severity Reaction Status Date / Time amoxicillin [From Augmentin] Allergy Severe MERLE Verified 02/14/21 02:00 SYNDROME clams Allergy Severe HIVES Verified 05/23/21 00:39 clavulanic acid Allergy Severe MERLE Verified 02/14/21 02:00 [From Augmentin] SYNDROME ceftriaxone Allergy Intermediate HIVES, Rash Verified 05/23/21 00:39 levofloxacin Allergy Intermediate Hives Verified 02/14/21 02:00 Penicillins Allergy Intermediate CHILLS/RYAN Verified 05/23/21 00:39 RS rosiglitazone [From Avandia] Allergy Intermediate Hives Verified 02/14/21 02:00 vancomycin AdvReac Mild RED MAN Verified 05/23/21 00:39 SYNDROME Home Medications Medication Instructions Recorded Confirmed Type risperidone 0.5 mg tablet 0.5 mg PO Q8 06/07/18 05/23/21 History clonazepam 0.5 mg tablet 0.5 mg PO BID 11/11/18 05/23/21 History dolutegravir 50 mg tablet (Tivicay) 50 mg PO HS 02/22/20 05/23/21 History emtricitabine 200 mg-tenofovir 1 tab PO HS 02/22/20 05/23/21 History alafenamide fumarate 25 mg tablet (Descovy) fluvoxamine 100 mg tablet 100 mg PO BID 02/22/20 05/23/21 History hydroxyzine HCl 50 mg tablet 50 mg PO Q8 02/22/20 05/23/21 History metformin 500 mg tablet 500 mg PO BIDM 02/22/20 05/23/21 History acetaminophen 325 mg tablet 650 mg PO Q4H PRN MDD 3 GRAMS/24 02/14/21 05/23/21 History (Tylenol) HOURS buspirone 10 mg tablet 20 mg PO BID 02/14/21 05/23/21 History famotidine 20 mg tablet 20 mg PO BID 02/14/21 05/23/21 History guaifenesin 600 mg tablet, 600 mg PO Q12H PRN 02/14/21 05/23/21 History extended release 12 hr (Mucinex) insulin glargine 100 unit/mL (3 15 unit SUBCUT DAILY 02/14/21 05/23/21 History mL) subcutaneous pen (Basaglar KwikPen U-100 Insulin) alfuzosin 10 mg tablet,extended 10 mg PO DAILY 05/06/21 05/23/21 History release 24 hr aspirin 81 mg chewable tablet 81 mg PO DAILY 05/06/21 05/23/21 History cyanocobalamin (vitamin B-12) 500 500 mcg SUBLINGUAL DAILY 05/06/21 05/23/21 History mcg sublingual tablet insulin regular human 100 unit/mL 0 unit SUBCUT ACHS 05/23/21 05/23/21 History (3 mL) subcutaneous pen (Novolin R Flexpen) multivitamin with folic acid 400 1 tab PO DAILY 05/23/21 05/23/21 History mcg tablet (Daily-[place] (with folic acid)) Patient History Medical History Acute dehydration Acute hyperglycemia Acute venous thrombosis GEGE (acute kidney injury) Diabetes Falls History of DVT (deep vein thrombosis) HIV (human immunodeficiency virus infection) Hypertension Partial nontraumatic amputation of foot UTI (urinary tract infection) Surgical History History of carpal tunnel release of both wrists History of carpal tunnel surgery Social History Smoking Status: Former smoker Hx Alcohol Use: No Hx Substance Use: No Preferred Language: Slovak Communication Ability: Impaired Music Copyist Required: No Beliefs That Will Affect Care: None marital status: Single Current Living Situation: Personal Care Facility How many Children do You have: 1 Feels Safe at Home: Yes Safety Concerns: Feels Safe At This Time Assistive Devices: Wheelchair Physical Exam Physical Exam: Upon entering the patient's room, she is sleeping but is arousable. She falls asleep quickly if you do not keep her focus. She does answer some questions appropriately and others she mumbles answers and then falls back to sleep. She does not appear to be in acute distress. On examination, patient has a small neoprene brace on the knee which is removed. With her arthritis, she appears to have some chronic swelling of the right knee. She has an Optifoam dressing over the anterosuperior region of the knee. This is removed revealing a superficial wound that is small in nature with no purulence and no erythema. I cannot appreciate any fluctuance at this time. There is no overt erythema of the knee. The knee does feel warm to the touch. She complains of some pain on palpation over the anterior portion of the knee. She has very limited range of motion. When I take her through gentle passive range of motion of the knee, what limited range of motion she has she does not appear to be having intense pain with the range of motion. She does state that she does have some discomfort with range of motion. Brace is reapplied. Calves are nontender on palpation. Results & Data ([facility]) Vital Signs (Past 12 Hours) Vital Signs Temp Pulse Pulse Resp BP Pulse Ox 05/23/21 09:49 97 H 05/23/21 08:35 36.6 C 90 18 123/73 96 05/23/21 05:23 37.0 C 100 H 101 H 18 98/65 L 94 05/23/21 04:50 37 C 18 92 05/23/21 03:27 37.5 C 108 H 22 110/63 95 05/23/21 02:01 39.8 C H 120 H 21 124/72 96 05/23/21 02:00 118 H 21 127/78 95 05/23/21 01:15 128 H 22 05/23/21 01:00 110 H 22 97 05/23/21 00:48 38.5 C H 116 H 24 132/70 98 05/23/21 00:19 115 H 23 95 05/22/21 22:51 37.7 C H 116 H 116 H 18 137/90 98 Laboratory Results Laboratory Results WBC 7.66 K/uL (4.8-10.8) 05/23/21 06:39 RBC 3.56 M/uL (4.2-5.4) L 05/23/21 06:39 Hgb 10.3 g/dL (12.0-16.0) L 05/23/21 06:39 Hct 32.3 % (37-47) L 05/23/21 06:39 MCV 90.7 fL (80-100) 05/23/21 06:39 MCH 28.9 pg (25-34) 03 06:39 MCHC 31.9 g/dL (32-36) L 05/23/21 06:39 RDW Std Deviation 45.4 fL (36.4-46.3) 05/23/21 06:39 RDW Coeff of [place] 13.7 % (11.5-14.5) 05/23/21 06:39 Plt Count 289 K/uL (130-400) 05/23/21 06:39 MPV 9.0 fL (7.4-10.4) 05/23/21 06:39 Immature Gran % (Auto) 0.5 % 05/23/21 06:39 Neut % (Auto) 80.1 % 05/23/21 06:39 Lymph % (Auto) 15.7 % 05/23/21 06:39 [place] % (Auto) 3.0 % 05/23/21 06:39 Eos % (Auto) 0.4 % 05/23/21 06:39 Baso % (Auto) 0.3 % 05/23/21 06:39 Neut # (Auto) 6.14 K/uL (1.4-6.5) 05/23/21 06:39 Lymph # (Auto) 1.20 K/uL (1.2-3.4) 05/23/21 06:39 [place] # (Auto) 0.23 K/uL (0.11-0.59) 05/23/21 06:39 Eos # (Auto) 0.03 K/uL (0-0.5) 05/23/21 06:39 Baso # (Auto) 0.02 K/uL (0-0.2) 05/23/21 06:39 Immature Gran # (Auto) 0.04 K/uL (0.00-0.02) H 05/23/21 06:39 PT 10.9 Seconds (9.0-12.0) 05/22/21 23:10 INR 1.0 (0.9-1.1) 05/22/21 23:10 APTT 27.6 Seconds (21.0-31.0) 05/22/21 23:10 PTT Ratio 1.0 05/22/21 23:10 Sodium 131 mmol/L (136-145) L 05/23/21 06:39 Potassium 4.0 mmol/L (3.5-5.1) 05/23/21 06:39 Chloride 105 mmol/L (98-107) 05/23/21 06:39 Carbon Dioxide 20 mmol/L (21-32) L 05/23/21 06:39 Anion Gap 6 (3-11) 05/23/21 06:39 BUN 30 mg/dl (6-23) H 05/23/21 06:39 Creatinine 1.43 mg/dl (0.6-1.2) H 05/23/21 06:39 Est Cr Clr Drug Dosing 51.9 ml/min 05/23/21 06:39 Est GFR ( Amer) 46.3 ml/min 05/23/21 06:39 Est GFR (Non-Af Amer) 40.0 ml/min 05/23/21 06:39 BUN/Creatinine Ratio 21.0 (10-20) H 05/23/21 06:39 Glucose 149 mg/dl (70-99(Fasting)) H 05/23/21 06:39 POC Glucose 134 mg/dl (70-99) H 05/23/21 07:53 Osmolality 291 mOsm/kg (280-300) 05/22/21 23:10 Lactate 1.9 mmol/L (0.4-2.0) 05/23/21 01:16 Calcium 7.3 mg/dl (8.5-10.1) L 05/23/21 06:39 Magnesium 2.2 mg/dl (1.7-2.4) 05/23/21 06:39 Total Bilirubin 0.5 mg/dl (0.2-1.0) 05/22/21 23:10 AST 17 U/L (13-39) 05/22/21 23:10 ALT 13 U/L (7-52) 05/22/21 23:10 Alkaline Phosphatase 44 U/L (34-104) 05/22/21 23:10 Total Creatine Kinase 93 U/L (26-192) 05/22/21 23:10 Troponin I < 0.03 ng/ml (0-0.04) 05/22/21 23:10 Total Protein 7.1 gm/dl (6.0-8.3) 05/22/21 23:10 Albumin 3.7 gm/dl (3.4-5.0) 05/22/21 23:10 Globulin 3.4 gm/dl (2.5-4.0) 05/22/21 23:10 Albumin/Globulin Ratio 1.1 (0.9-2) 05/22/21 23:10 Procalcitonin 0.12 ng/ml (0-0.5) 05/22/21 23:10 Urine Color Yellow 05/23/21 04:08 Urine Appearance Clear (Clear) 05/23/21 04:08 Urine pH 5.5 (4.5-7.5) 05/23/21 04:08 Ur Specific [place] 1.019 (1.000-1.030) 05/23/21 04:08 Urine Protein Negative (Negative) 05/23/21 04:08 Urine Glucose (UA) Negative (Negative) 05/23/21 04:08 Urine Ketones Trace (Negative) H 05/23/21 04:08 Urine Blood Trace (Negative) H 05/23/21 04:08 Urine Nitrite Negative (Negative) 05/23/21 04:08 Urine Bilirubin Negative (Negative) 05/23/21 04:08 Urine Urobilinogen Negative (Negative) 05/23/21 04:08 Ur Leukocyte Esterase Negative (Negative) 05/23/21 04:08 Urine WBC (Auto) 1-5 /hpf (0-5) 05/23/21 04:08 Urine RBC (Auto) 0-4 /hpf (0-4) 05/23/21 04:08 U Hyaline Cast (Auto) 0 /lpf (0-5) 05/23/21 04:08 U Epithel Cells (Auto) 10-20 /lpf (0-5) H 05/23/21 04:08 Urine Bacteria (Auto) Negative (Negative) 05/23/21 04:08 Adenovirus (PCR) DETECTED (NotDetected) A* 05/22/21 23:30 B. pertussis DNA (PCR) Not Detected (NotDetected) 05/22/21 23:30 B.parapertussis DNA PCR Not Detected (NotDetected) 05/22/21 23:30 C. pneumoniae DNA (PCR) Not Detected (NotDetected) 05/22/21 23:30 Coronavirus OC43 (PCR) Not Detected (NotDetected) 05/22/21 23:30 Coronavirus HKU1 (PCR) Not Detected (NotDetected) 05/22/21 23:30 Coronavirus 229E (PCR) Not Detected (NotDetected) 05/22/21 23:30 SARS-CoV-2 (PCR) Not Detected (NotDetected) 05/22/21 23:30 Coronavirus NL63 (PCR) Not Detected (NotDetected) 05/22/21 23:30 Human Metapneumovir PCR Not Detected (NotDetected) 05/22/21 23:30 Influenza Type A (PCR) Not Detected (NotDetected) 05/22/21 23:30 Influenza Type B (PCR) Not Detected (NotDetected) 05/22/21 23:30 M. pneumoniae (PCR) Not Detected (NotDetected) 05/22/21 23:30 Parainfluenza 1 (PCR) Not Detected (NotDetected) 05/22/21 23:30 Parainfluenza 2 (PCR) Not Detected (NotDetected) 05/22/21 23:30 Parainfluenza 3 (PCR) Not Detected (NotDetected) 05/22/21 23:30 Parainfluenza 4 (PCR) Not Detected (NotDetected) 05/22/21 23:30 RSV (PCR) Not Detected (NotDetected) 05/22/21 23:30 Entero/Rhino (PCR) Not Detected (NotDetected) 05/22/21 23:30 Impressions Chest X-Ray 05/22/21 22:51 XR chest 1V portable CLINICAL HISTORY: SEPSIS TECHNIQUE: Single frontal radiograph of the chest was obtained. Comparison: Comparison is made to chest one view 05/06/2021 FINDINGS: No lines and tubes are seen. Calcified aortic knob is seen. The lungs are clear. No evidence of pleural effusion or pneumothorax. IMPRESSION: No acute chest disease. ACT 112: Negative or not required by law. Electronically signed by: Messi Estrella M.D. 05/23/2021 8:04 AM Abdomen/Pelvis CT 05/23/21 00:13 CT abd pelvis wo con CLINICAL HISTORY: flank pain sepsis arf TECHNIQUE: Helical axial images of the abdomen and pelvis were obtained. Automated dose lowering techniques and/or adjustment according to patient size were utilized for this exam. This exam was performed without intravenous contrast. COMPARISON: None available at the time of this dictation. FINDINGS: Lower chest: No acute abnormality Liver: Unremarkable. No focal lesions are seen. Gallbladder and biliary tree: No calcified gallstones. Normal caliber wall. No intra- or extrahepatic biliary ductal dilation. Pancreas: Unremarkable, no focal lesions. Spleen: Unremarkable. Adrenals: Unremarkable. Kidneys and ureters: Nonobstructive nephrolithiasis is seen. Bladder: Unremarkable. Reproductive organs: Unremarkable. Bowel: Diverticulosis is seen without evidence of diverticulitis. The appendix is normal. Lymph nodes Retroperitoneal: Unremarkable. Mesenteric: Unremarkable. Pelvic: Unremarkable. Peritoneum: Normal. Vessels: Unremarkable. Abdominal wall: A fat-containing umbilical hernia is seen. Bones: Redemonstration of anterior compression deformity of L1 and posterior fixation of L3 S1. Patient is status post left lower extremity amputation at the level of the mid femoral shaft. IMPRESSION: No acute abnormalities, in particular no evidence of obstructive nephrolithiasis. ACT 112: Negative or not required by law. Electronically signed by: Messi Estrella M.D. 05/23/2021 7:14 AM Knee X-Ray 05/23/21 02:27 XR knee RT 1 or 2V routine CLINICAL HISTORY: Chronic right knee pain and swelling.. COMPARISON STUDY: 05/09/2021 TECHNIQUE: 2 right knee views FINDINGS: Bones: The bones are osteopenic. There is evidence for an old, healed supracondylar fracture. There is no evidence for an acute fracture or dislocation. There is no lytic or blastic lesion. Joints: There is evidence for marked narrowing of all 3 joint compartments. Secondary degenerative changes are present and unchanged. There is no evidence for an intra-articular effusion. The bones are in anatomic alignment. Soft tissues: There is no focal soft tissue abnormality. There is no radiopaque foreign body. IMPRESSION: 1. No acute osseous pathology. 2. Osteopenia and marked osteoarthritis. 3. Old healed supracondylar femoral fracture. ACT 112: Negative or not required by law. Electronically signed by: Brodie Phillips M.D. 05/23/2021 7:02 AM
[2021-05-23] MEDS: AZTREONAM 2,000 MG in DEXTROSE 5% 100 ML IV SCH ×2 (13:22→21:26)
--- NOTE | 2021-05-23 15:35 | Hospitalist Progress Note ---
Date of Service May 23, 2021 Assessment & Plan (1) Severe sepsis: (2) Adenovirus infection: Plan: 60-year-old female with past medical history of type 2 diabetes, diabetic retinopathy, HIV under treatment, multiple thyroid nodules, vitamin D deficiency, vitamin B12 deficiency, morbid obesity, UTI, urge incontinence, anemia and chronic kidney disease, MRSA infection, depression, anxiety, DVT, status post left above-knee amputation,lives in a residential, presents with not feeling well 2 days DIRECTOR CASE associated with fever with chills, shortness of breath and poor appetite with emesis. Of note, she does have chronic right lower extremity pain/right knee pain and she was supposed to follow-up with orthopedics as an outpatient. She reports worsening right knee pain this time. She is being managed for the following: #. Not feeling well #. Likely Upper respiratory tract infection Patient was recently treated for bacteremia E. coli secondary to complicated UTI and/ or RLE cellulitis. Recently completed Cipro course on May 20. Patient presents with not feeling well 2 days DIRECTOR CASE associated with fever with chills, shortness of breath and poor appetite with emesis. Patient denies any cough or abdominal pain or dysuria or diarrhea symptoms. 05/22 Adenovirus PCR positive. T-max of 39.8C, WBC WNL. Admitting Pro-Jason negative. Patient on room air, clinically lung auscultation WNL Continue supportive management. #. Worsening right knee pain #. Presumed septic arthritis #. Severe Sepsis POA Patient has chronic pain in the right lower extremity including right knee, complains of worsening right knee pain currently. Patient was to follow-up with orthopedics as an outpatient. She does use knee brace most of the time. Admitting right knee x-ray: No acute bony pathology, mild osteoarthritis noted, old healed supracondylar femur fracture noted. Admitting: WBC WNL, temperature went up to 39.8C, RR greater than 20, heart rate greater than 90. Lactate 2.1 05/23 ESR: 11 and CRP 5.19 Clinically, no redness in her knees, she does have extreme tenderness and some warmth around the knee. Orthopedics consulted, appreciate recommendation. Patient was started on daptomycin and Azactam 05/22, for now continue with that until orthopedic recommendation and knee infection ruled out. Continue pain management. Patient will need continued orthopedic follow-up as an outpatient. #. Hyponatremia Presentation sodium 130, likely secondary to poor appetite prior to arrival Continue to monitor sodium daily and as required. 2. Acute kidney injury on chronic kidney disease stage III. Baseline creatinine seemsto be around 1.3, admitting creatinine of 1.62, downtrending, expect results with better p.o. intake. Avoid nephrotoxic agents. 3. History of diabetes.Hold metformin. Continue long-acting insulin, on insulin sliding scale. 4. History of human immunodeficiency virus. Continue her home medications. 5. History of depression and anxiety. Continue Klonopin, buspirone, risperidone, and fluvoxamine. 6. Morbid obesity, counseled. #. DVT prophylaxis: Lovenox CODE STATUS: DNR/DNI Admission and Anticipated Discharge Date Admission Date: May 23, 2021 Subjective Patient seen and examined at bedside for adenovirus infection and severe right knee pain likely/presumed septic arthritis. Patient was lying in bed, drowsy, sleepy, arousable up and talking, denies any pain or discomfort. Patient denies any headache/dizziness/chest pain/palpitation/shortness of breath/cough/other review of symptoms. Patient does have severe tenderness on palpation of her right knee. Right knee is in brace. Physical Exam Physical Exam: GENERAL: Alert and oriented x3. NAD, on RA. HEENT: No pallor, no icterus. Pupils equal, round and reactive to light. Oral mucosa moist. NECK: No JVD, no neck masses. HEART: S1 and S2 heard. Regular rate and rhythm. Systolic murmur over aortic and pulmonic area, no gallop. RESPIRATORY SYSTEM: Normal AP diameter. No accessory muscle use. No wheezing, no crackles. ABDOMEN: Soft, bowel sounds present, nontender, no distention. CENTRAL NERVOUS SYSTEM: No facial droop. Speech is clear. Obeys simple commands. Moves extremities. EXTREMITIES: RLE trace edema with chronic skin changes, right knee extremely tender to palpation, some warmth noted, no erythema noted. LLEAKA stump noted. Results & Data Results & Data ([facility]) Vital Signs (Past 12 Hours) Vital Signs Temp Pulse Pulse Resp BP BP Pulse Ox 05/23/21 11:04 36.8 C 91 H 19 121/77 97 05/23/21 09:49 97 H 05/23/21 08:35 36.6 C 90 18 123/73 96 05/23/21 05:23 37.0 C 100 H 101 H 18 98/65 L 94 05/23/21 04:50 37 C 18 92
[2021-05-23] MEDS ORDERED: SODIUM CHLORIDE 0.9% 1000ML 1,000 ML IV SCH (16:15)
--- NOTE | 2021-05-23 16:25 | Electrocardiogram Report ---
Test Reason : Blood Pressure : / mmHG Vent. Rate : 116 BPM Atrial Rate : 116 BPM P-R Int : 148 ms QRS Dur : 094 ms QT Int : 318 ms P-R-T Axes : 031 068 038 degrees QTc Int : 442 ms Poor data quality, interpretation may be adversely affected Sinus tachycardia Otherwise normal ECG When compared with ECG of 23-FEB-2020 06:46, No significant change was found Confirmed by Leonardo Urbina ([id number]) on 05/23/2021 4:25:30 PM Referred By: Rosita Nunez Confirmed By:Leonardo Urbina
[2021-05-23] MEDS: ACETAMINOPHEN 325 MG TAB PO PRN (20:26)
[2021-05-23] MEDS: oxyCODONE HCL IR 5 MG TAB (IMMEDIATE RELEASE) PO PRN (20:33)
[2021-05-23] MEDS: DAPTOmycin 475 MG in SYRINGE 0 ML IV SCH (21:26)
[2021-05-24] MEDS: AZTREONAM 2,000 MG in DEXTROSE 5% 100 ML IV SCH ×3 (05:37→21:57)
[2021-05-24 06:04] LABS: Hematocrit (blood only) 34.4 % (37-47); Hemoglobin 10.9 g/dL (12.0-16.0); Mean Corpuscular Hemoglobin 29.1 pg (25-34); Mean Corpuscular Hgb Conc 31.7 g/dL (32-36); Mean Platelet Volume 9.2 fL (7.4-10.4); Platelet Count 286 K/uL (130-400); RDW Coefficient of Variation 13.9 % (11.5-14.5); RDW Standard Deviation 47.1 fL (36.4-46.3); Red Blood Count 3.74 M/uL (4.2-5.4); White Blood Count 4.02 K/uL (4.8-10.8)
[2021-05-24 06:19] LABS: BUN Creatinine Ratio 16.9 (10-20); Calcium 8.4 mg/dl (8.5-10.1); Creatinine Clr Calc Pharmacy 59.8 ml/min; Est GFR (African American) 55.1 ml/min; Est GFR (Non-African American) 47.5 ml/min; Magnesium 1.9 mg/dl (1.7-2.4); Phosphorus 3.8 mg/dl (2.5-4.9)
[2021-05-24] MEDS: risperiDONE 0.5 MG TABLET PO SCH ×3 (07:50→22:08)
[2021-05-24] MEDS: CYANOCOBALAMIN (B-12) 500 MCG TABLET PO SCH (07:50)
[2021-05-24] MEDS: clonazePAM 0.5 MG TAB PO SCH ×2 (07:51→21:35)
[2021-05-24] MEDS: ASPIRIN 81 MG ECTAB PO SCH (07:51)
[2021-05-24] MEDS: ALFUZOSIN HCL 10 MG TAB PO SCH (07:51)
[2021-05-24] MEDS: busPIRone 5 MG TAB PO SCH ×2 (07:51→21:35)
[2021-05-24] MEDS: fluvoxaMINE MALEATE 50 MG TAB PO SCH ×2 (07:51→21:36)
[2021-05-24] MEDS: MULTIVITAMIN TAB PO SCH (07:51)
[2021-05-24] MEDS: ENOXAPARIN INJ 40 MG/0.4 ML SYR SQ SCH (07:52)
[2021-05-24] MEDS: hydrOXYzine HCl 25 MG TAB PO SCH ×3 (07:57→22:08)
[2021-05-24] MEDS: FAMOTIDINE 20 MG TAB PO SCH ×2 (07:57→21:34)
--- NOTE | 2021-05-24 08:44 | Orthopedic Progress Note ---
Date of Service May 24, 2021 Assessment & Plan (1) Right knee pain: Plan: Awaiting MRI of R knee to evaluate for effusion/abscess/osteo. WBC trending down, trend CRP and monitor blood cx. Hold off on aspiration at this time. Continue antibx per Med Service. Will follow Admission and Anticipated Discharge Date Admission Date: May 23, 2021 Subjective Pt S+E, NAEO. Still reports pain in R knee, tolerating brace. Physical Exam Constitutional: Gen: NAD, AAOx3, resting comfortably in bed. Musculoskeletal: RLE - well healed knee scar - transmet amputation - no warmth or erythema, no significant effusion - knee rests in 15deg of felxion, +TTP, has pain with gentle ROM - silt s/spn/dpn/t/s - fires ta/ehl/gsc + dp/pt Results & Data ([facility]) Vital Signs (Past 12 Hours) Vital Signs Temp Pulse Pulse Resp BP BP Pulse Ox 05/24/21 07:58 36.9 C 89 20 101/70 96 05/24/21 02:45 36.8 C 84 18 123/71 96 05/23/21 23:24 93 H 05/23/21 23:14 37.2 C 87 18 90/55 L 93
[2021-05-24] MEDS: INSULIN GLARGINE SOLOSTAR 100 UNITS/ML 3 ML PEN SQ SCH (08:51)
[2021-05-24] MEDS: INSULIN ASPART PER UNIT SC SCH ×4 (08:52→21:37)
[2021-05-24] MEDS ORDERED: MICONAZOLE NITRATE POWDER 43 GM EXT PRN (09:19)
[2021-05-24] MEDS ORDERED: OPTIRAY 320 100ml IV ONE (17:34)
--- NOTE | 2021-05-24 18:02 | CT Scan Report ---
CT knee RT w con HISTORY: Right knee pain and swelling. r/o abscess TECHNIQUE: Multiaxial CT images of the right knee were performed following the intravenous administra tion of 93 cc of Optiray 320 and reformatted in the sagittal and coronal plane. COMPARISON STUDY: Right knee CT 06/07/2018. FINDINGS: No acute fractures identified within the right knee. Lateral subluxation of the patella rem ains unchanged. No dislocation. Severe tricompartmental osteoarthritis with multiple intra-articular loose bodies remain unchanged. There are large tricompartmental marginal osteophytes again noted. No erosive changes identified. Moderate to severe calcified plaque within the visualized arterial struct ures. Trace knee effusion, unchanged. Mild subcutaneous trace edema and skin thickening within the an terior and lateral aspect of the knee. No loculated fluid collections to suggest an abscess. IMPRESSION: 1. No loculated fluid collections within the right knee to suggest an abscess. 2. Mild skin thickening and subcutaneous edema within the anterior and lateral aspect of the knee. Th is is similar to the prior study and is therefore likely chronic. A mild cellulitis could also have a similar appearance in the appropriate clinical setting. 3. Trace knee effusion and severe tricompartmental osteoarthritis, unchanged. 4. No acute fractures. ACT 112: Negative or not required by law. Electronically signed by: Jose Li M.D. 05/24/2021 6:00 PM
--- NOTE | 2021-05-24 19:33 | Hospitalist Progress Note ---
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 Of note, she does have chronic right lower extremity pain/right knee pain and she was supposed to follow-up with orthopedics as an outpatient. She reports worsening right knee pain this time. She is being managed for the following: #. Not feeling well #. Likely Upper respiratory tract infection Patient was recently treated for bacteremia E. coli secondary to complicated UTI and/ or RLE cellulitis. Recently completed Cipro course on May 20. 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 Patient denies any cough or abdominal pain or dysuria or diarrhea symptoms. 05/22 Adenovirus PCR positive. T-max of 39.8C, WBC WNL. Admitting Pro-Jason negative. Patient on room air, clinically lung auscultation WNL, temperature getting better Continue supportive management. #. Worsening right knee pain #. Presumed septic arthritis #. Severe Sepsis POA Patient has chronic pain in the right lower extremity including right knee, complains of worsening right knee pain currently. Patient was to follow-up with orthopedics as an outpatient. She does use knee brace most of the time. Admitting right knee x-ray: No acute bony pathology, mild osteoarthritis noted, old healed supracondylar femur fracture noted. Admitting: WBC WNL, temperature went up to 39.8C, RR greater than 20, heart rate greater than 90. Lactate 2.1 05/23 ESR: 11 and CRP 5.19 Clinically, no redness in her knees, she does have extreme tenderness and some warmth around the knee. Orthopedics consulted, appreciate recommendation. Patient was started on daptomycin and Azactam 05/22, for now continue with that until orthopedic recommendation and knee infection ruled out. Continue pain management. Patient will need continued orthopedic follow-up as an outpatient. #. Hyponatremia Presentation sodium 130, likely secondary to poor appetite prior to arrival Resolved 2. Acute kidney injury on chronic kidney disease stage III. Baseline creatinine seemsto be around 1.3, admitting creatinine of 1.62, downtrending, expect results with better p.o. intake. Avoid nephrotoxic agents. 3. History of diabetes.Hold metformin. Continue long-acting insulin, on insulin sliding scale. 4. History of human immunodeficiency virus. Continue her home medications. 5. History of depression and anxiety. Continue Klonopin, buspirone, risperidone, and fluvoxamine. 6. Morbid obesity, counseled. #. DVT prophylaxis: Lovenox CODE STATUS: DNR/DNI Admission and Anticipated Discharge Date Admission Date: May 23, 2021 Subjective Patient seen and examined at bedside for adenovirus infection and severe right knee pain likely/presumed septic arthritis. Patient was lying in bed, better feeling today, denies any pain or discomfort. Patient denies any headache/dizziness/chest pain/palpitation/shortness of breath/cough/other review of symptoms. Patient does have severe tenderness on palpation of her right knee. Right knee is in brace. Physical Exam Physical Exam: GENERAL: Alert and oriented x3. NAD, on RA. HEENT: No pallor, no icterus. Pupils equal, round and reactive to light. Oral mucosa moist. NECK: No JVD, no neck masses. HEART: S1 and S2 heard. Regular rate and rhythm. Systolic murmur over aortic and pulmonic area, no gallop. RESPIRATORY SYSTEM: Normal AP diameter. No accessory muscle use. No wheezing, no crackles. ABDOMEN: Soft, bowel sounds present, nontender, no distention. CENTRAL NERVOUS SYSTEM: No facial droop. Speech is clear. Obeys simple commands. Moves extremities. EXTREMITIES: RLE trace edema with chronic skin changes, right knee extremely tender to palpation, some warmth noted, no erythema noted. LLEAKA stump noted. Results & Data Results & Data ([facility]) Vital Signs (Past 12 Hours) Vital Signs Temp Pulse Pulse Resp BP BP Pulse Ox 05/24/21 18:34 36.6 C 85 20 111/73 97 05/24/21 16:00 84 05/24/21 15:18 37.0 C 83 20 97/65 L 94 05/24/21 12:31 36.9 C 85 20 90/62 L 96 05/24/21 08:00 91 H 05/24/21 07:58 36.9 C 89 20 101/70 96
[2021-05-24] MEDS: DESCOVY PO SCH (21:34)
[2021-05-24] MEDS: DOLUTEGRAVIR SODIUM 50 MG TAB PO SCH (21:35)
[2021-05-24] MEDS: DAPTOmycin 475 MG in SYRINGE 0 ML IV SCH (22:09)
[2021-05-25] MEDS: hydrOXYzine HCl 25 MG TAB PO SCH ×4 (06:14→21:09)
[2021-05-25] MEDS: AZTREONAM 2,000 MG in DEXTROSE 5% 100 ML IV SCH ×3 (06:15→21:05)
[2021-05-25] MEDS: risperiDONE 0.5 MG TABLET PO SCH ×3 (06:15→21:05)
[2021-05-25 07:12] LABS: Hematocrit (blood only) 33.1 % (37-47); Hemoglobin 10.5 g/dL (12.0-16.0); Mean Corpuscular Hemoglobin 28.9 pg (25-34); Mean Corpuscular Hgb Conc 31.7 g/dL (32-36); Mean Corpuscular Volume 91.2 fL (80-100); Mean Platelet Volume 9.1 fL (7.4-10.4); Platelet Count 262 K/uL (130-400); RDW Coefficient of Variation 13.8 % (11.5-14.5); RDW Standard Deviation 46.1 fL (36.4-46.3); Red Blood Count 3.63 M/uL (4.2-5.4); White Blood Count 4.17 K/uL (4.8-10.8)
[2021-05-25] MEDS: fluvoxaMINE MALEATE 50 MG TAB PO SCH ×2 (07:37→20:39)
[2021-05-25] MEDS: ALFUZOSIN HCL 10 MG TAB PO SCH (07:37)
[2021-05-25] MEDS: CYANOCOBALAMIN (B-12) 500 MCG TABLET PO SCH (07:37)
[2021-05-25] MEDS: ASPIRIN 81 MG ECTAB PO SCH (07:37)
[2021-05-25] MEDS: clonazePAM 0.5 MG TAB PO SCH ×2 (07:37→20:44)
[2021-05-25] MEDS: busPIRone 5 MG TAB PO SCH ×2 (07:37→20:36)
[2021-05-25] MEDS: FAMOTIDINE 20 MG TAB PO SCH ×2 (07:38→20:39)
[2021-05-25] MEDS: MULTIVITAMIN TAB PO SCH (07:38)
[2021-05-25] MEDS: ENOXAPARIN INJ 40 MG/0.4 ML SYR SQ SCH (07:38)
[2021-05-25 07:39] LABS: BUN Creatinine Ratio 15.2 (10-20); Calcium 7.7 mg/dl (8.5-10.1); Creatinine Clr Calc Pharmacy 70.7 ml/min; Est GFR (African American) 67.3 ml/min; Est GFR (Non-African American) 58.1 ml/min
[2021-05-25] MEDS: INSULIN GLARGINE SOLOSTAR 100 UNITS/ML 3 ML PEN SQ SCH (08:54)
[2021-05-25] MEDS: INSULIN ASPART PER UNIT SC SCH ×4 (08:55→20:40)
--- NOTE | 2021-05-25 11:41 | Orthopedic Progress Note ---
Date of Service May 25, 2021 Assessment & Plan (1) Right knee pain: Plan: Severe right knee osteoarthritis Plan: Patient was unable to tolerate MRI of the right knee due to positioning and contracture of her right knee. CT scan was obtained which did not demonstrate any evidence of abscess or effusion present. The patient does have severe osteoarthritis of her right knee and I think that unlikely contributing etiology to her pain. Her patella is subluxated as well as her severe arthritis significantly limits her range of motion causing a contracture of her joint. Based on no clinical evidence of effusion warmth or erythema and no appreciable effusion or abscess on CT scan I feel that septic arthritis is much less likely. Would recommend continuing antibiotic therapy and PT/OT with pain control. No further orthopedic intervention at this time. Admission and Anticipated Discharge Date Admission Date: May 23, 2021 Subjective Patient seen and examined, no acute events overnight. Still notes pain in her right knee. She did have a CT scan performed of her right lower extremity. Physical Exam Constitutional: Alert and oriented to person place and time, no acute distress Musculoskeletal: Right lower extremity -Knee rests in approximately 15 to 20 degrees of contracture. Patella is subluxated laterally. There is no warmth/erythema or effusion present -Patient has pain and severe crepitation with attempted range of motion. -Sensation intact to light touch saphenous/superficial peroneal nerve/deep rene marjorie nerve/tibial/sural nerve distributions -Previous transmetatarsal amputation -Fires tibialis anterior/gastrocsoleus complex -Palpable dorsalis pedis and posterior tibial pulses Results & Data ([facility]) Vital Signs (Past 12 Hours) Vital Signs Temp Pulse Pulse Resp BP BP Pulse Ox 05/25/21 08:00 74 05/25/21 07:54 36.0 C L 73 20 103/67 95 05/25/21 03:18 36.9 C 84 16 135/85 98 05/25/21 01:36 81 05/24/21 22:55 36.9 C 82 18 90/57 L [address] scan reviewed there is severe osteoarthritis of the right knee with patellar subluxation laterally as well as osteophyte formation. There is no appreciable abscess or significant effusion present.
--- NOTE | 2021-05-25 17:32 | Hospitalist Progress Note ---
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 Of note, she does have chronic right lower extremity pain/right knee pain and she was supposed to follow-up with orthopedics as an outpatient. She reports worsening right knee pain this time. She is being managed for the following: #. Not feeling well #. Likely Upper respiratory tract infection Patient was recently treated for bacteremia E. coli secondary to complicated UTI and/ or RLE cellulitis. Recently completed Cipro course on May 20. 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 Patient denies any cough or abdominal pain or dysuria or diarrhea symptoms. 05/22 Adenovirus PCR positive. Temp getting better, WBC WNL. Admitting Pro-Jason negative. Patient on room air, clinically lung auscultation WNL, temperature getting boyd r Continue supportive management. #. Worsening right knee pain #. Presumed septic arthritis #. Severe Sepsis POA Patient has chronic pain in the right lower extremity including right knee, complains of worsening right knee pain currently. Patient was to follow-up with orthopedics as an outpatient. She does use knee brace most of the time. Admitting right knee x-ray: No acute bony pathology, mild osteoarthritis noted, old healed supracondylar femur fracture noted. Admitting: WBC WNL, temperature went up to 39.8C, RR greater than 20, heart rate greater than 90. Lactate 2.1 05/23 ESR: 11 and CRP 5.19 Clinically, no redness in her knees, she does have extreme tenderness and some warmth around the knee. Orthopedics consulted, appreciate recommendation. Patient was started on daptomycin and Azactam 05/22, for now continue with that until orthopedic recommendation and knee infection ruled out. Ortho recommending c/w atb --> reached out to ortho on further recommendation on this. Continue pain management. Patient will need continued orthopedic follow-up as an outpatient. #. Hyponatremia Presentation sodium 130, likely secondary to poor appetite prior to arrival Resolved 2. Acute kidney injury on chronic kidney disease stage III. Baseline creatinine seemsto be around 1.3, admitting creatinine of 1.62, downtrending, expect results with better p.o. intake. Avoid nephrotoxic agents. 3. History of diabetes.Hold metformin. Continue long-acting insulin, on insulin sliding scale. 4. History of human immunodeficiency virus. Continue her home medications. 5. History of depression and anxiety. Continue Klonopin, buspirone, risperid one, and fluvoxamine. 6. Morbid obesity, counseled. #. DVT prophylaxis: Lovenox CODE STATUS: DNR/DNI Admission and Anticipated Discharge Date Admission Date: May 23, 2021 Subjective Patient seen and examined at bedside for adenovirus infection and severe right knee pain likely/presumed septic arthritis. Patient was lying in bed, better feeling today, denies any pain or discomfort. Patient denies any headache/dizziness/chest pain/palpitation/shortness of breath/cough/other review of symptoms. Patient does have severe tenderness on palpation of her right knee. Right knee is in brace. Physical Exam Physical Exam: GENERAL: Alert and oriented x3. NAD, on RA. HEENT: No pallor, no icterus. Pupils equal, round and reactive to light. Oral mucosa moist. NECK: No JVD, no neck masses. HEART: S1 and S2 heard. Regular rate and rhythm. Systolic murmur over aortic and pulmonic area, no gallop. RESPIRATORY SYSTEM: Normal AP diameter. No accessory muscle use. No wheezing, no crackles. ABDOMEN: Soft, bowel sounds present, nontender, no distention. CENTRAL NERVOUS SYSTEM: No facial droop. Speech is clear. Obeys simple commands. Moves extremities. EXTREMITIES: RLE trace edema with chronic skin changes, right knee extremely tender to palpation, some warmth noted, no erythema noted. LLEAKA stump noted. Results & Data Results & Data ([facility]) Vital Signs (Past 12 Hours) Vital Signs Temp Pulse Pulse Resp BP BP Pulse Ox 05/25/21 14:56 36.5 C 78 20 120/73 99 05/25/21 12:03 36.4 C L 80 20 113/72 96 05/25/21 08:00 74 05/25/21 07:54 36.0 C L 73 20 103/67 95
[2021-05-25] MEDS: DOLUTEGRAVIR SODIUM 50 MG TAB PO SCH (20:38)
[2021-05-25] MEDS: DESCOVY PO SCH (20:40)
[2021-05-25] MEDS: DAPTOmycin 475 MG in SYRINGE 0 ML IV SCH (21:05)
[2021-05-26] MEDS: risperiDONE 0.5 MG TABLET PO SCH ×2 (05:12→13:00)
[2021-05-26] MEDS: hydrOXYzine HCl 25 MG TAB PO SCH ×3 (05:12→22:41)
[2021-05-26] MEDS: AZTREONAM 2,000 MG in DEXTROSE 5% 100 ML IV SCH ×3 (05:24→22:40)
[2021-05-26] MEDS: ENOXAPARIN INJ 40 MG/0.4 ML SYR SQ SCH (07:28)
[2021-05-26] MEDS: fluvoxaMINE MALEATE 50 MG TAB PO SCH ×2 (07:29→20:28)
[2021-05-26] MEDS: clonazePAM 0.5 MG TAB PO SCH ×2 (07:29→20:25)
[2021-05-26] MEDS: FAMOTIDINE 20 MG TAB PO SCH ×2 (07:29→20:26)
[2021-05-26] MEDS: ALFUZOSIN HCL 10 MG TAB PO SCH (07:29)
[2021-05-26] MEDS: MULTIVITAMIN TAB PO SCH (07:29)
[2021-05-26] MEDS: ASPIRIN 81 MG ECTAB PO SCH (07:29)
[2021-05-26] MEDS: CYANOCOBALAMIN (B-12) 500 MCG TABLET PO SCH (07:29)
[2021-05-26] MEDS: busPIRone 5 MG TAB PO SCH ×2 (07:30→20:24)
[2021-05-26 07:54] LABS: Hematocrit (blood only) 32.9 % (37-47); Hemoglobin 10.4 g/dL (12.0-16.0); Mean Corpuscular Hemoglobin 28.9 pg (25-34); Mean Corpuscular Hgb Conc 31.6 g/dL (32-36); Mean Corpuscular Volume 91.4 fL (80-100); Mean Platelet Volume 9.3 fL (7.4-10.4); Platelet Count 273 K/uL (130-400); RDW Coefficient of Variation 13.8 % (11.5-14.5); RDW Standard Deviation 46.1 fL (36.4-46.3); White Blood Count 4.23 K/uL (4.8-10.8)
[2021-05-26] MEDS: INSULIN GLARGINE SOLOSTAR 100 UNITS/ML 3 ML PEN SQ SCH (08:52)
[2021-05-26] MEDS: INSULIN ASPART PER UNIT SC SCH ×4 (08:52→20:31)
[2021-05-26] MEDS: CHOLECALCIFEROL 5,000 UNITS 125 MCG TAB PO SCH (11:18)
--- NOTE | 2021-05-26 13:03 | Hospitalist Progress Note ---
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 Of note, she does have chronic right lower extremity pain/right knee pain and she was supposed to follow-up with orthopedics as an outpatient. She reports worsening right knee pain this time. She is being managed for the following: Not feeling well Likely Upper respiratory tract infection Patient was recently treated for bacteremia E. coli secondary to complicated UTI and/ or RLE cellulitis. Recently completed Cipro course on May 20. 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 Patient denies any cough or abdominal pain or dysuria or diarrhea symptoms. 05/22 Adenovirus PCR positive. Temp getting better, WBC WNL. Admitting Pro-Jason negative. Afebrile since 05/23 Patient on room air, clinically lung auscultation WNL, temperature getting better Continue supportive management. Worsening right knee pain Presumed septic arthritis Severe Sepsis POA - resolved Patient has chronic pain in the right lower extremity including right knee, complains of worsening right knee pain currently. Patient was to follow-up with orthopedics as an outpatient. She does use knee brace most of the time. Admitting right knee x-ray: No acute bony pathology, mild osteoarthritis noted, old healed supracondylar femur fracture noted. Admitting: WBC WNL, temperature went up to 39.8C, RR greater than 20, heart rate greater than 90. Lactate 2.1 05/23 ESR: 11 and CRP 5.19 Clinically, no redness in her knees, she does have extreme tenderness and some warmth around the knee. Orthopedics consulted, appreciate recommendation. Patient was started on daptomycin and Azactam 05/22, for now continue with that until orthopedic recommendation and knee infection ruled out. Ortho recommending c/w atb --> Continue pain management. Patient will need continued orthopedic follow-up as an outpatient. Repeat ESR/CRP in a.m. and consider discontinuing antbiotics Hyponatremia Presentation sodium 130, likely secondary to poor appetite prior to arrival Resolved Low Vitamin D replace with 5,000 units daily Acute kidney injury on chronic kidney disease stage III Baseline creatinine seemsto be around 1.3, admitting creatinine of 1.62, downtrending, expect results with better p.o. intake. Avoid nephrotoxic agents. History of diabetes Hold metformin. Continue long-acting insulin, on insulin sliding scale. History of human immunodeficiency virus Continue her home medications. History of depression and anxiety. Continue Klonopin, buspirone, risperidone, and fluvoxamine. Morbid obesity, counseled. DVT prophylaxis: Lovenox CODE STATUS: DNR/DNI Dispo: PT/OT orders placed, still undetermined if ? septic arthritis, no clear clinical evidence, repeat ESR/CRP in a.m. and determine necessity of antibiotic coverage, not yet medically clear for d/c Admission and Anticipated Discharge Date Admission Date: May 23, 2021 Supervising Physician Co-Signing Physician Notes 60-year-old lady seen and examined at bedside for upper respiratory tract infection and right lower extremity pain. Patient does not have respiratory signs and symptoms as of now, patient is on antibiotic for presumed right knee infection, orthopedics has been reached out for recommendations. Agree with the plan of care as above. Agree with the examination findings as above. I have seen and examined the patient and have discussed the case with the provider above. I agree with the assessment and plan as stated. Subjective Pt was seen and examined in room 263-1. Follow up sepsis and adenovirus Pt offers no acute concerns. She has 8/10 pain to RLE. Denies f/c/s, chest pain, sob, n/v/d. Review of Systems Review of Systems: All systems reviewed & are unremarkable except as noted in HPI & below Physical Exam Physical Exam: Gen: WD/WN, NAD, A&O x3 HEENT: Normocephalic, atraumatic, conjunctivae moist, sclerae anicteric, mucous membranes moist. Lung: Clear to Auscultation bilaterally, no wheezes/rales/rhonchi Heart: Regular rate, regular rhythm, no murmurs, rubs, or gallops Abdomen: Soft, NT, ND +BS x 4 Extremities: L AKA, R TMA Skin: Warm, no rash, negative turgor. Results & Data Results & Data ([facility]) Vital Signs (Past 12 Hours) Vital Signs Temp Pulse Pulse Resp BP Pulse Ox 05/26/21 11:30 36.7 C 72 18 115/67 98 05/26/21 07:30 36.6 C 74 18 124/81 96 Laboratory Results Short CBC 05/26/21 Range/Units 07:10 WBC 4.23 L (4.8-10.8) K/uL Hgb 10.4 L (12.0-16.0) g/dL Hct 32.9 L (37-47) % Plt Count 273 (130-400) K/uL Medications Administered Current Inpatient Medications Acetaminophen (Acetaminophen 325 Mg Tab) 650 mg PO Q4H PRN PRN Reason: FEVER/PAIN Stop: 06/22/21 04:36 Last Admin: 05/23/21 20:26 Dose: 650 mg Documented by: Alfuzosin HCl (Alfuzosin Hcl 10 Mg Tab) 10 mg PO DAILY ALEKS Stop: 06/22/21 08:59 Last Admin: 05/26/21 07:29 Dose: 10 mg Documented by: Aspirin (Aspirin 81 Mg Ectab) 81 mg PO DAILY ALEKS Stop: 06/22/21 08:59 Last Admin: 05/26/21 07:29 Dose: 81 mg Documented by: Aztreonam (Aztreonam Consult Active) 1 ea N/A UD PRN PRN Reason: Consult Stop: 06/22/21 04:47 Buspirone HCl (Buspirone 5 Mg Tab) 20 mg PO BID ALEKS Stop: 06/22/21 08:59 Last Admin: 05/26/21 07:30 Dose: 20 mg Documented by: Clonazepam (Clonazepam 0.5 Mg Tab) 0.5 mg PO BID ALEKS Stop: 06/22/21 08:59 Last Admin: 05/26/21 07:29 Dose: 0.5 mg Documented by: Cyanocobalamin (Cyanocobalamin (B-12) 500 Mcg Tablet) 500 mcg PO DAILY ALEKS Stop: 06/22/21 08:59 Last Admin: 05/26/21 07:29 Dose: 500 mcg Documented by: Dextrose (Dextrose 50% 50 Ml Syringe) 25 - 50 ml IV UD PRN; Protocol PRN Reason: Hypoglycemia Protocol Stop: 06/22/21 04:36 Dolutegravir Sodium (Dolutegravir Sodium 50 Mg Tab) 50 mg PO HS [facility] Stop: 06/23/21 20:59 Last Admin: 05/25/21 20:38 Dose: 50 mg Documented by: Enoxaparin Sodium (Enoxaparin Inj 40 Mg/0.4 Ml Syr) 40 mg SQ QAM ALEKS Stop: 06/22/21 08:59 Last Admin: 05/26/21 07:28 Dose: 40 mg Documented by: Famotidine (Famotidine 20 Mg Tab) 20 mg PO BID ALEKS Stop: 06/22/21 08:59 Last Admin: 05/26/21 07:29 Dose: 20 mg Documented by: Fluvoxamine Maleate (Fluvoxamine Maleate 50 Mg Tab) 100 mg PO BID ALEKS Stop: 06/22/21 08:59 Last Admin: 05/26/21 07:29 Dose: 100 mg Documented by: Glucagon (Glucagon For Inj 1 Mg Vial) 1 mg SQ UD PRN; Protocol PRN Reason: Hypoglycemia Protocol Stop: 06/22/21 04:36 Glucose (Glucose 10 Tabs/Tube) 4 - 8 tabs PO UD PRN; Protocol PRN Reason: Hypoglycemia Protocol Stop: 06/22/21 04:36 Glucose (Glucose 40% Gel 15 Gm Tube) 15 - 30 gm PO UD PRN; Protocol PRN Reason: Hypoglycemia Protocol Stop: 06/22/21 04:36 Hydromorphone HCl (Hydromorphone Inj 0.5 Mg/0.5 Ml Syr) 0.5 mg IV Q3H PRN PRN Reason: Pain Stop: 06/06/21 02:37 Hydroxyzine HCl (Hydroxyzine Hcl 25 Mg Tab) 50 mg PO Q8 ALEKS Stop: 06/22/21 05:59 Last Admin: 05/26/21 13:00 Dose: 50 mg Documented by: Promethazine HCl 12.5 mg/ (Sodium Chloride) 50.5 mls @ 202 mls/hr IV Q6H PRN PRN Reason: Nausea And Vomiting Stop: 06/22/21 02:37 Aztreonam 2,000 mg/ Dextrose 110 mls @ 110 mls/hr IV Q8H ALEKS; Protocol Stop: 07/04/21 13:59 Last Admin: 05/26/21 13:00 Dose: 110 mls/hr Documented by: Daptomycin 475 mg/ Syringe 9.5 mls @ 4.75 mls/min IV Q24H [facility]; Protocol Stop: 07/04/21 21:59 Last Admin: 05/25/21 21:05 Dose: 4.75 mls/min Documented by: Insulin Aspart (Insulin Aspart Per Unit) 0 units SC ACHS [facility] Stop: 06/22/21 04:36 Last Admin: 05/26/21 12:03 Dose: 1 units Documented by: Insulin Glargine (Insulin Glargine Solostar 100 Units/Ml 3 Ml Pen) 10 units SQ DAILY [facility] Stop: 06/22/21 08:59 Last Admin: 05/26/21 08:52 Dose: 10 units Documented by: Miconazole Nitrate (Miconazole Nitrate Powder 43 Gm) 1 appln EXT PRN PRN PRN Reason: Affected Skin Folds Stop: 06/23/21 09:18 Miscellaneous (Carbohydrates For Hypoglycemia ) 15 - 30 gm PO UD PRN PRN Reason: Hypoglycemia Protocol Stop: 06/22/21 04:36 Miscellaneous Information (Daptomycin Consult Active) 1 ea N/A UD PRN PRN Reason: Consult Stop: 06/21/21 22:59 Multivitamins (Multivitamin Tab) 1 tab PO DAILY [facility] Stop: 06/22/21 08:59 Last Admin: 05/26/21 07:29 Dose: 1 tab Documented by: Elia 200-25 Mg - Non-Formulary Patient's Own Med 1 ea PO HS [facility] Stop: 06/23/21 20:59 Last Admin: 05/25/21 20:40 Dose: 1 tab Documented by: Oxycodone HCl (Oxycodone Hcl Ir 5 Mg Tab (Immediate Release)) 5 - 10 mg PO QID PRN PRN Reason: Pain Stop: 06/06/21 02:37 Last Admin: 05/23/21 20:33 Dose: 10 mg Documented by: Risperidone (Risperidone 0.5 Mg Tablet) 0.5 mg PO Q8 [facility] Stop: 06/22/21 05:59 Last Admin: 05/26/21 13:00 Dose: 0.5 mg Documented by: Vitamin D (Cholecalciferol 5,000 Units 125 Mcg Tab) 5,000 units PO QAM [facility] Stop: 06/01/21 09:01 Last Admin: 05/26/21 11:18 Dose: 5,000 units Documented by:
[2021-05-26] MEDS: DOLUTEGRAVIR SODIUM 50 MG TAB PO SCH (20:26)
[2021-05-26] MEDS: DESCOVY PO SCH (20:32)
[2021-05-26] MEDS: ACETAMINOPHEN 325 MG TAB PO PRN (20:33)
[2021-05-26] MEDS: DAPTOmycin 475 MG in SYRINGE 0 ML IV SCH (22:40)
[2021-05-27] MEDS: risperiDONE 0.5 MG TABLET PO SCH ×4 (01:13→21:32)
[2021-05-27] MEDS: hydrOXYzine HCl 25 MG TAB PO SCH ×3 (05:55→21:31)
[2021-05-27] MEDS: AZTREONAM 2,000 MG in DEXTROSE 5% 100 ML IV SCH (05:56)
[2021-05-27 07:24] LABS: Basophils # (auto) 0.07 K/uL (0-0.2); Basophils % (auto) 1.6 %; Eosinophils % (auto) 2.3 %; Hematocrit (blood only) 33.8 % (37-47); Hemoglobin 10.8 g/dL (12.0-16.0); Immature Granulocytes # (auto) 0.01 K/uL (0.00-0.02); Immature Granulocytes % (auto) 0.2 %; Lymphocytes # (auto) 2.19 K/uL (1.2-3.4); Lymphocytes % (auto) 49.5 %; Mean Corpuscular Volume 90.6 fL (80-100); Mean Platelet Volume 8.9 fL (7.4-10.4); Neutrophils # (auto) 1.65 K/uL (1.4-6.5); Neutrophils % (auto) 37.4 %; Platelet Count 266 K/uL (130-400); RDW Coefficient of Variation 13.4 % (11.5-14.5); RDW Standard Deviation 44.7 fL (36.4-46.3); Red Blood Count 3.73 M/uL (4.2-5.4); White Blood Count 4.42 K/uL (4.8-10.8)
[2021-05-27 07:51] LABS: Albumin Level 3.1 gm/dl (3.4-5.0); BUN Creatinine Ratio 17.9 (10-20); Bilirubin,Total 0.3 mg/dl (0.2-1.0); C Reactive Protein 2.03 mg/dl (0-0.5); Creatinine Clr Calc Pharmacy 65.1 ml/min; Est GFR (African American) 62.3 ml/min; Est GFR (Non-African American) 53.7 ml/min; Globulin 3.1 gm/dl (2.5-4.0); Potassium 4.1 mmol/L (3.5-5.1); Total Protein 6.2 gm/dl (6.0-8.3)
[2021-05-27] MEDS: ALFUZOSIN HCL 10 MG TAB PO SCH (09:44)
[2021-05-27] MEDS: busPIRone 5 MG TAB PO SCH ×2 (09:44→21:33)
[2021-05-27] MEDS: FAMOTIDINE 20 MG TAB PO SCH ×2 (09:44→21:33)
[2021-05-27] MEDS: CHOLECALCIFEROL 5,000 UNITS 125 MCG TAB PO SCH (09:45)
[2021-05-27] MEDS: CYANOCOBALAMIN (B-12) 500 MCG TABLET PO SCH (09:45)
[2021-05-27] MEDS: ASPIRIN 81 MG ECTAB PO SCH (09:45)
[2021-05-27] MEDS: INSULIN GLARGINE SOLOSTAR 100 UNITS/ML 3 ML PEN SQ SCH (09:45)
[2021-05-27] MEDS: MULTIVITAMIN TAB PO SCH (09:45)
[2021-05-27] MEDS: ENOXAPARIN INJ 40 MG/0.4 ML SYR SQ SCH (09:45)
[2021-05-27] MEDS: fluvoxaMINE MALEATE 50 MG TAB PO SCH ×2 (09:45→21:32)
[2021-05-27] MEDS: INSULIN ASPART PER UNIT SC SCH ×4 (09:49→21:34)
[2021-05-27] MEDS: clonazePAM 0.5 MG TAB PO SCH ×2 (09:51→21:33)
[2021-05-27] MEDS: oxyCODONE HCL IR 5 MG TAB (IMMEDIATE RELEASE) PO PRN (12:17)
--- NOTE | 2021-05-27 14:01 | Hospitalist Progress Note ---
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 Of note, she does have chronic right lower extremity pain/right knee pain and she was supposed to follow-up with orthopedics as an outpatient. She reports worsening right knee pain this time. She is being managed for the following: Severe Sepsis-POA -resolved Adenovirus Likely Upper respiratory tract infection Patient was recently treated for bacteremia E. coli secondary to complicated UTI and/ or RLE cellulitis. Recently completed Cipro course on May 20. 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 Patient denies any cough or abdominal pain or dysuria or diarrhea symptoms. 05/22 Adenovirus PCR positive. Temp getting better, WBC WNL. Admitting Pro-Jason negative. Afebrile since 05/23 Patient on room air, clinically lung auscultation WNL, temperature getting better Continue supportive management. Worsening right knee pain Concern for septic arthritis Patient has chronic pain in the right lower extremity including right knee, complains of worsening right knee pain currently. Patient was to follow-up with orthopedics as an outpatient. She does use knee brace most of the time. Admitting right knee x-ray: No acute bony pathology, mild osteoarthritis noted, old healed supracondylar femur fracture noted. Admitting: WBC WNL, temperature went up to 39.8C, RR greater than 20, heart rate greater than 90. Lactate 2.1 05/23 ESR: 11 and CRP 5.19, CRP today 2.03 Clinically, no redness in her knees, she does have extreme tenderness and some warmth around the knee. Orthopedics consulted, appreciate recommendation. Patient was started on daptomycin and Azactam 05/22, for now continue with that until orthopedic recommendation and knee infection ruled out. Ortho does not feel clinical evidence of septic arthritis - will d/c antibiotics Hyponatremia Presentation sodium 130, likely secondary to poor appetite prior to arrival Resolved Low Vitamin D replace with 5,000 units daily for 7 days; transition to 1000 units daily afterwards. Get Vitamin D level in 3-6 months time. Acute kidney injury on chronic kidney disease stage III cr 1.12, at baseline avoid nephrotoxic agents History of diabetes Hold metformin. Continue long-acting insulin, on insulin sliding scale. History of human immunodeficiency virus Continue her home medications. History of depression and anxiety. Continue Klonopin, buspirone, risperidone, and fluvoxamine. Morbid obesity, counseled. DVT prophylaxis: Lovenox CODE STATUS: DNR/DNI Dispo: Pt medically stable for d/c, PT/OT saw pt today, CM working on transport likely for tomorrow Admission and Anticipated Discharge Date Admission Date: May 23, 2021 Supervising Physician Co-Signing Physician Notes 60-year-old lady seen and examined at bedside for upper respiratory tract infection and right lower extremity pain. Patient does not have respiratory signs and symptoms as of now, patient is on antibiotic for presumed right knee infection, orthopedics has ruled out knee infection. Agree with the plan of care as above. Agree with the examination findings as above. I have seen and examined the patient and have discussed the case with the provider above. I agree with the assessment and plan as stated. Subjective Pt was seen and examined in room 263-1. Follow up sepsis and adenovirus. She feels back to baseline and is ready to return back to [facility]F. She continues to complain of R knee pain 8/10. This is baseline for her. Her brace helps this. She worked with PT today which she was able to transfer at her baseline with bedboard and slide. She denies f/c/s, chest pain, sob, n/v/d, abd pain. +BM Review of Systems Review of Systems: All systems reviewed & are unremarkable except as noted in HPI & below Physical Exam Physical Exam: Gen: WD/WN, NAD, A&O x3 HEENT: Normocephalic, atraumatic, conjunctivae moist, sclerae anicteric, mucous membranes moist. Lung: Clear to Auscultation bilaterally, no wheezes/rales/rhonchi Heart: Regular rate, regular rhythm, no murmurs, rubs, or gallops Abdomen: Soft, NT, ND +BS x 4 Extremities: L AKA, R TMA, R knee brace in place Skin: Warm, no rash, negative turgor. Results & Data Results & Data ([facility]) Vital Signs (Past 12 Hours) Vital Signs Temp Pulse Resp BP Pulse Ox 05/27/21 11:17 36.7 C 81 20 105/71 98 05/27/21 08:03 36.4 C L 69 20 97/68 L 96
[2021-05-27] MEDS: DESCOVY PO SCH (21:31)
[2021-05-27] MEDS: DOLUTEGRAVIR SODIUM 50 MG TAB PO SCH (21:31)
[2021-05-28] MEDS: risperiDONE 0.5 MG TABLET PO SCH (05:25)
[2021-05-28] MEDS: hydrOXYzine HCl 25 MG TAB PO SCH (05:25)
[2021-05-28] MEDS: busPIRone 5 MG TAB PO SCH (08:08)
[2021-05-28] MEDS: ALFUZOSIN HCL 10 MG TAB PO SCH (08:08)
[2021-05-28] MEDS: CYANOCOBALAMIN (B-12) 500 MCG TABLET PO SCH (08:08)
[2021-05-28] MEDS: ASPIRIN 81 MG ECTAB PO SCH (08:08)
[2021-05-28] MEDS: CHOLECALCIFEROL 5,000 UNITS 125 MCG TAB PO SCH (08:08)
[2021-05-28] MEDS: MULTIVITAMIN TAB PO SCH (08:08)
[2021-05-28] MEDS: ENOXAPARIN INJ 40 MG/0.4 ML SYR SQ SCH (08:09)
[2021-05-28] MEDS: fluvoxaMINE MALEATE 50 MG TAB PO SCH (08:09)
[2021-05-28] MEDS: FAMOTIDINE 20 MG TAB PO SCH (08:09)
[2021-05-28] MEDS: INSULIN GLARGINE SOLOSTAR 100 UNITS/ML 3 ML PEN SQ SCH (08:10)
[2021-05-28] MEDS: INSULIN ASPART PER UNIT SC SCH ×2 (08:15→12:29)
[2021-05-28] MEDS: clonazePAM 0.5 MG TAB PO SCH (08:15)
--- NOTE | 2021-05-28 09:32 | Discharge Summary ---
Date of Service May 28, 2021 Admission HPI Per Admitting Provider History obtained from patient and records. Medical history significant for hypertension, DM2, insulin requiring, mood disorder, arthritis, CRI (baseline creatinine 1.3), chronic anemia (baseline hemoglobin of 11), history of MRSA, HIV, hx DVT as per records, past tobacco abuse. Recent confinement last month for sepsis secondary to E. coli bacteremia attributed to complicated UTI, RLE cellulitis. Patient discharged on ciprofloxacin course. 2 days ago, patient started feeling sick again. Fever chills without cough, abdominal pain, dysuria, diarrhea symptoms. Worsening right knee pain. Shortness of breath from fever as per patient. Patient denies headache symptoms. Poor appetite with emesis. Patient given Daptomycin and Meropenem at the ER for sepsis. MEDICAL HISTORY: As above. SURGERIES: Knee surgery, she had carpal tunnel, foot surgeries, toe amputation, back surgery, FAMILY HISTORY: There is a family history of diabetes, heart disease. PERSONAL AND SOCIAL HISTORY:Past tobacco abuse. No chronic alcohol intake. On disability. Assisted living facility resident. Admission Exam Per Admitting Provider GENERAL: uncomfortable, ill looking, morbidly obese, no respiratory distress SKIN: Pallor, warm HEENT: Pale palpebral conjunctivae, no ptosis, dry buccal mucosa NECK : Supple, short neck, no tenderness CHEST : CTA, no tenderness HEART : Tachycardic, no obvious murmurs ABDOMEN: Some distention, nontender EXTREMITIES : LLE amputation stump, tender right knee swelling NEUROLOGIC : Coherent, no facial asymmetry, no other gross focality Principal Diagnosis Sepsis Adenovirus Weakness Chronic R knee pain Hyponatremia Vitamin D deficiency Discharge Exam Gen: WD/WN, NAD, A&O x3 HEENT: Normocephalic, atraumatic, conjunctivae moist, sclerae anicteric, mucous membranes moist. Lung: Clear to Auscultation bilaterally, no wheezes/rales/rhonchi Heart: Regular rate, regular rhythm, no murmurs, rubs, or gallops Abdomen: Soft, NT, ND +BS x 4 Extremities: L AKA, R TMA, R knee brace in place Skin: Warm, no rash, negative turgor. Discharge Data Allergies Allergy/AdvReac Type Severity Reaction Status Date / Time amoxicillin [From Augmentin] Allergy Severe MERLE Verified 02/14/21 02:00 SYNDROME clams Allergy Severe HIVES Verified 05/23/21 00:39 clavulanic acid Allergy Severe MERLE Verified 02/14/21 02:00 [From Augmentin] SYNDROME ceftriaxone Allergy Intermediate HIVES, Rash Verified 05/23/21 00:39 levofloxacin Allergy Intermediate Hives Verified 02/14/21 02:00 Penicillins Allergy Intermediate CHILLS/RYAN Verified 05/23/21 00:39 RS rosiglitazone [From Avandia] Allergy Intermediate Hives Verified 02/14/21 02:00 vancomycin AdvReac Mild RED MAN Verified 05/23/21 00:39 SYNDROME Consultations 05/23/21 02:26 ED Decision to Admit Stat 05/23/21 06:44 Consult Orthopedic Surgery Routine Ordered Studies Chest X-Ray 05/22/21 22:51 XR chest 1V portable CLINICAL HISTORY: SEPSIS TECHNIQUE: Single frontal radiograph of the chest was obtained. Comparison: Comparison is made to chest one view 05/06/2021 FINDINGS: No lines and tubes are seen. Calcified aortic knob is seen. The lungs are clear. No evidence of pleural effusion or pneumothorax. IMPRESSION: No acute chest disease. ACT 112: Negative or not required by law. Electronically signed by: Messi Estrella M.D. 05/23/2021 8:04 AM Abdomen/Pelvis CT 05/23/21 00:13 CT abd pelvis wo con CLINICAL HISTORY: flank pain sepsis arf TECHNIQUE: Helical axial images of the abdomen and pelvis were obtained. Automated dose lowering techniques and/or adjustment according to patient size were utilized for this exam. This exam was performed without intravenous contrast. COMPARISON: None available at the time of this dictation. FINDINGS: Lower chest: No acute abnormality Liver: Unremarkable. No focal lesions are seen. Gallbladder and biliary tree: No calcified gallstones. Normal caliber wall. No intra- or extrahepatic biliary ductal dilation. Pancreas: Unremarkable, no focal lesions. Spleen: Unremarkable. Adrenals: Unremarkable. Kidneys and ureters: Nonobstructive nephrolithiasis is seen. Bladder: Unremarkable. Reproductive organs: Unremarkable. Bowel: Diverticulosis is seen without evidence of diverticulitis. The appendix is normal. Lymph nodes Retroperitoneal: Unremarkable. Mesenteric: Unremarkable. Pelvic: Unremarkable. Peritoneum: Normal. Vessels: Unremarkable. Abdominal wall: A fat-containing umbilical hernia is seen. Bones: Redemonstration of anterior compression deformity of L1 and posterior fixation of L3 S1. Patient is status post left lower extremity amputation at the level of the mid femoral shaft. IMPRESSION: No acute abnormalities, in particular no evidence of obstructive nephrolithiasis. ACT 112: Negative or not required by law. Electronically signed by: Messi Estrella M.D. 05/23/2021 7:14 AM Knee X-Ray 05/23/21 02:27 XR knee RT 1 or 2V routine CLINICAL HISTORY: Chronic right knee pain and swelling.. COMPARISON STUDY: 05/09/2021 TECHNIQUE: 2 right knee views FINDINGS: Bones: The bones are osteopenic. There is evidence for an old, healed supracondylar fracture. There is no evidence for an acute fracture or dislocation. There is no lytic or blastic lesion. Joints: There is evidence for marked narrowing of all 3 joint compartments. Secondary degenerative changes are present and unchanged. There is no evidence for an intra-articular effusion. The bones are in anatomic alignment. Soft tissues: There is no focal soft tissue abnormality. There is no radiopaque foreign body. IMPRESSION: 1. No acute osseous pathology. 2. Osteopenia and marked osteoarthritis. 3. Old healed supracondylar femoral fracture. ACT 112: Negative or not required by law. Electronically signed by: Brodie Phillips M.D. 05/23/2021 7:[address] 05/24/21 17:11 CT knee RT w con HISTORY: Right knee pain and swelling. r/o abscess TECHNIQUE: Multiaxial CT images of the right knee were performed following the intravenous administration of 93 cc of Optiray 320 and reformatted in the sagittal and coronal plane. COMPARISON STUDY: Right knee CT 06/07/2018. FINDINGS: No acute fractures identified within the right knee. Lateral subluxation of the patella remains unchanged. No dislocation. Severe tricompartmental osteoarthritis with multiple intra-articular loose bodies remain unchanged. There are large tricompartmental marginal osteophytes again noted. No erosive changes identified. Moderate to severe calcified plaque within the visualized arterial structures. Trace knee effusion, unchanged. Mild subcutaneous trace edema and skin thickening within the anterior and lateral aspect of the knee. No loculated fluid collections to suggest an abscess. IMPRESSION: 1. No loculated fluid collections within the right knee to suggest an abscess. 2. Mild skin thickening and subcutaneous edema within the anterior and lateral aspect of the knee. This is similar to the prior study and is therefore likely chronic. A mild cellulitis could also have a similar appearance in the appropriate clinical setting. 3. Trace knee effusion and severe tricompartmental osteoarthritis, unchanged. 4. No acute fractures. ACT 112: Negative or not required by law. Electronically signed by: Jose Li M.D. 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 Of note, she does have chronic right lower extremity pain/right knee pain and she was supposed to follow-up with orthopedics as an outpatient. She reports worsening right knee pain on admission. She initially was dx with severe sepsis and tested positive for adenovirus. She was started on broad spectrum antibiotics due to concern for possible septic arthritis. She was seen and examined by [facility] ortho who felt there was no clinical evidence of septic arthritis. Due to extent of pt surgeries MRI was unable to be obtained. Antibiotics were discontinued. Regarding adenovirus she was treated conservatively. She did have mild hyponatremia in setting to poor intake which resolved on discharge. She was found to have low vitamin D and this was replaced. Her Knee pain is chronically at an 8/10. She wears a brace which helps stabilize the knee and ease pain. She feels like her pain is at baseline. On day of discharge pt was in good spirits and her vitals were stable. She is back to baseline medically and physically. She was seen by PT/OT and felt to be able to return to [facility]. She was tolerating diet at discharge. Total Time Total Time Spent Total Time Spent (In Minutes): 60 minutes Discharge Plan Discharge Items Patient Disposition: [facility] Reason For Visit: SEPSIS Discharge Diagnosis: Sepsis Adenovirus Weakness Chronic R knee pain Hyponatremia Vitamin D deficiency Condition on Discharge: Fair Activity: Resume your previous activity Non-emergency contact: Primary Care Provider Call non-emergency contact if: you have any medication questions, your symptoms worsen, your pain is worsening, your pain is concerning for you, you have a fever and your temperature is above 101 Follow-up/Referrals: Theron Springer DO [Physician] - (Date & Time 06/03/2021 11:00 AM Provider Theron Springer DO Department [facility] ) Rosita Kim [Primary Care Provider] - Diet: Carb Consistent or DM2 Addtl Attending Provider Instructions: MEDICATION CHANGES: New medications Vitamin D3 5,000 Units daily x 7 days; then 1,000 units daily thereafter SUMMARY OF TEST RESULTS: You were admitted to hospital due to fever, chills, shortness of breath and poor appetite. You tested Positive for adenovirus which is likely the source of your symptoms. This has resolved. You did have increased right knee pain which may have been secondary to underlying illness. Orthopedics evaluated you and ruled out the possibility of infection in your knee. Your sodium was low and your kidney function was higher than normal on admission. This was due to poor intake and dehydration. This resolved on discharge. PT/OT evaluated you prior to discharge and felt safe to return back to personal care facility. PENDING TEST RESULTS: None RECOMMENDATIONS FOR FOLLOW-UP: Follow up with primary care provider at personal care facility Recommend repeat vitamin D level in 3 months. Your vitamin D level here was low at 27. Continue all medications as prescribed. Recommend continue R knee brace at all times and when out of bed. OTHER INSTRUCTIONS: Seek medical attention if you have: * temperature above 101 * chest pain or trouble breathing * abdominal pain, nausea, vomiting * diarrhea, dark stools or bloody stools * any unanswered questions or concerns Call 911 if symptoms are severe. Please take good care of yourself. It has been a pleasure taking care of you. Please take care of yourself. If you have any questions regarding your recent hospitalization please contact [facility] and request Sherry Boles @ [phone]. Annie Meeks PA-C Pending Studies at Discharge: No Stand-Alone Forms: My [facility] Iframe Apps, Smoking Cessation Skilled Items Patient informed of condition?: Yes DNR: Yes Discharge Level of Care: Other Communicable Disease: No Discharge Prognosis: Stable Lines: None Urinary Catheter: No Medications and DC Order Prescriptions: New cholecalciferol (vitamin D3) [Vitamin D3] 25 mcg (1,000 unit) capsule 25 mcg PO DAILY 90 Days Qty: 90 RF: 0 cholecalciferol (vitamin D3) 125 mcg (5,000 unit) Tablet 5,000 unit PO QAM Qty: 7 RF: 0 Continued Tivicay 50 mg tablet 50 mg PO HS RF: 0 Descovy 200-25 mg tablet 1 tab PO HS RF: 0 metformin 500 mg tablet 500 mg PO BIDM Qty: 60 RF: 0 acetaminophen [Tylenol] 325 mg Tablet 650 mg PO Q4H MDD 3 GRAMS/24 HOURS PRN (Reason: FEVER/PAIN) Qty: 30 RF: 0 clonazepam 0.5 mg tablet 0.5 mg PO BID Qty: 30 RF: 0 hydroxyzine HCl 50 mg tablet 50 mg PO Q8 Qty: 30 RF: 0 famotidine 20 mg Tablet 20 mg PO BID Qty: 60 RF: 0 fluvoxamine 100 mg tablet 100 mg PO BID Qty: 60 RF: 0 buspirone 10 mg Tablet 20 mg PO BID Qty: 60 RF: 0 aspirin 81 mg Tablet,Chewable 81 mg PO DAILY Qty: 30 RF: 0 risperidone 0.5 mg tablet 0.5 mg PO Q8 Qty: 90 RF: 0 alfuzosin 10 mg tablet extended release 24 hr 10 mg PO DAILY Qty: 30 RF: 0 Basaglar KwikPen U-100 Insulin 100 unit/mL (3 mL) Insulin Pen 15 unit SUBCUT DAILY Qty: 15 RF: 0 multivitamin with folic acid [Daily-Jefferson (with folic acid)] 400 mcg tablet 1 tab PO DAILY Qty: 30 RF: 0 guaifenesin [Mucinex] 600 mg Tablet Extended Release 12hr 600 mg PO Q12H PRN (Reason: Congestion) Qty: 60 RF: 0 cyanocobalamin (vitamin B-12) 500 mcg Tablet, Sublingual 500 mcg SUBLINGUAL DAILY Qty: 30 RF: 0 Changed Novolin R Flexpen 100 unit/mL (3 mL) insulin pen 1 sliding scale dose subcut BID Qty: 15 RF: 0 Discharge Orders: Discharge Order (Routine); Ordered 05/28/21 Ordered By: Annie Meeks Admission Data Admit Date/Time: 05/23/21 02:35 Attending Provider: German Araya Admit Provider: Sandip Olsen Primary Care Provider: Rosita Kim Other Providers: Sandip Olsen ; Ramos Wild ; Refugio Stokes ; Tomas Parker ; Laura Ramirez ; Zach Guerrero ; Selena Pitts ; Alexis Delgado ; Nikos Anderson ; Pedro Pablo Prather ; Adriano Deleon ; Nikos Reardon ; Edwardo Jules ; Josh Gomez ; Kaleb Moreno ; Selena Barrientos ; Melo Brandon ; Jorge Martini ; Kasia Khanna ; Johnathon Parekh ; Graciela Koehler ; Mal Whiting ; Annie Meeks Other Interventions: Discharge Summary Assessment (RN) Last Done: 05/28/21 11:29 Supervising Physician Co-Signing Physician Notes 60-year-old lady seen and examined at bedside for upper respiratory tract infection and right lower extremity pain. Patient does not have respiratory signs and symptoms as of now, patient was on antibiotic for presumed right knee infection, orthopedics has ruled out knee infection. Antibiotics discontinued. Agree with the plan of care as above. Agree with the examination findings as above. Patient will need to follow-up with PCP in a week time and might benefit from close follow-up with orthopedics as an outpatient for her ongoing right knee pain. I have seen and examined the patient and have discussed the case with the provider above. I agree with the assessment and plan as stated.
--- NOTE | 2021-05-30 15:39 | Coding Query ---
CODING QUERY To promote full compliance with coding requirements relating to patient care, provider participation is requested in all cases of stone cleaner uncertainty. Please assist us with the question(s) below: Coding Question(s): HIV patient admitted with sepsis due to adenovirus. Seeking to know if the adenovirus is related/linked to the HIV. Please check below your response & thank you . Ricci [facility] Physician's Response(s): The Adenovirus is related /associated/linked to the HIV The Adenovirus is not related to the HIV x Cannot clinically determine if the Adenovirus is related to the HIV Other: please document: Principal Diagnosis: "that condition established after study, to be chiefly responsible for occasioning the admission of the patient to the hospital for care." Co-Existing Principal Diagnosis: "when two or more diagnoses equally meet the criteria for principal diagnosis as determined by the circumstances of admission, diagnostic work up, and/or therapy provided, and the Alphabetic Index, Tabular List, or another coding guideline does not provide sequencing direction, any one of the diagnoses may be sequenced first." "When the physician has documented what appears to be a current diagnosis in the body of the record, but has not included the diagnosis in the final diagnostic statement, the physician should be asked whether the diagnosis should be added." (Source [facility]oding [facility] 2 QTR90. p3-4) [facility]
--- NOTE | 2021-06-03 12:33 | Coding Query ---
CODING QUERY To promote full compliance with coding requirements relating to patient care, provider participation is requested in all cases of psychometric examiner uncertainty. Please assist us with the question(s) below: Coding Question(s): HIV patient admitted with Sepsis due to Adenovirus. Seeking to know if the Sepsis is related/linked/ to the HIV. Please check your response below and thank you. Ricci [facility] Physician's Response(s): The Sepsis is related/associated/ linked to the HIV The Sepsis is not related/associated/linked to the HIV ____x____ Cannot Clinically determine if the Sepsis is related/associated/linked to the HIV Other: Please document: Principal Diagnosis: "that condition established after study, to be chiefly responsible for occasioning the admission of the patient to the hospital for care." Co-Existing Principal Diagnosis: "when two or more diagnoses equally meet the criteria for principal diagnosis as determined by the circumstances of admission, diagnostic work up, and/or therapy provided, and the Alphabetic Index, Tabular List, or another coding guideline does not provide sequencing direction, any one of the diagnoses may be sequenced first." "When the physician has documented what appears to be a current diagnosis in the body of the record, but has not included the diagnosis in the final diagnostic statement, the physician should be asked whether the diagnosis should be added." (Source Coding Clinic 2 QTR90. p3-4) [facility]
== END 2021-05-28 12:34 | disposition home or self-care (01) | DRG 975 ==
LOC: ED 22:34 → 2W 05-23 02:35

== ENCOUNTER 2021-08-27 14:23 | Inpatient (IN) ==
--- NOTE | 2021-08-27 15:41 | Emergency Department Note ---
Impression & Plan Cellulitis, Fungal infection, Acute knee pain ED Provider Note NAME: MADELINE LEZAMA AGE: 60 SEX: F : 1960 ARRIVES VIA: Ambulance INFORMANT: Patient ED PROVIDER(S): Roni Jacob DO CHIEF COMPLAINT: right leg infection HPI: Patient is a 60-year-old female who presents to the ER for right leg cellulitis. She was seen and evaluated as an outpatient and treated with oral antibiotics. She finished these up about 2 days ago. She notes the redness has slightly improved on the upper thigh but has gotten worse. Denies any headache or change in vision. No chest pain or shortness of breath. No nausea, vomiting, or diarrhea. She is not sure what antibiotic that she was taking. No weakness or numbness. She notes the wounds on bilateral sides of her right thigh has worsened. ROS: See above HPI for pertinent positives & negatives. A total of 10 systems reviewed and were otherwise negative. PAST MEDICAL HISTORY:See Below PAST SURGICAL HISTORY:See Below FAMILY HISTORY:See Below SOCIAL HISTORY:See Below HOME MEDICATIONS:See Below ALLERGIES:See Below VITALS:See Below PHYSICAL EXAMINATION: GENERAL: Sitting up in bed, alert, well appearing, well nourished, no distress, non-toxic EYE EXAM: normal conjunctiva. OROPHARYNX: no exudate, no erythema, lips, buccal mucosa, and tongue normal and mucous membranes are moist NECK: supple, no nuchal rigidity, no adenopathy, non-tender LUNGS: Clear to auscultation. Normal chest wall mechanics HEART: no murmurs, S1 normal and S2 normal ABDOMEN: abdomen soft, non-tender, normo-active bowel sounds, no masses, no rebound or guarding. UPPER EXTREMITIES: upper extremities are grossly normal. LOWER EXTREMITIES: Right knee held in permanent fraction with excoriation along the medial aspect of the knee with foul-smelling. Erythema on the right distal anterior butler. Skin is warm and tender on the right distal butler. Excoriation of the right lateral side of the knee. NEURO EXAM: Normal sensorium, cranial nerves II-XII grossly intact, normal speech, no gross weakness of arms, no gross weakness of legs. MEDICAL DECISION MAKING: Patient is a 60-year-old female who presents ER for the boasting complaint. IV was established blood work was obtained. Labs show no significant leukocytosis. Mild anemia 11.7. BMP along with LFTs bilirubin and lipase was unremarkable. COVID was negative. X-rays of the knee was unremarkable. He was given a dose of IV antibiotics. Do favor that she would benefit from wound care evaluation in-house as well as a 4 to 48 hours to confirm that this is improving prior to this getting significantly worse that she has been on doxycycline as an outpatient. Triage Nursing notes reviewed. Limited review of prior medical records performed Vital Signs: reviewed and remarkable for no significant abnormalities Differential diagnosis: Cellulitis, abscess, MRSA infection, DVT, necrotizing fasciitis, dermatitis, drug eruption, allergic reaction, as well as other pathologies. ER treatment provided: See below Diagnostics interpreted by me: ECG: none Cardiac Monitoring: An order was placed for continuous cardiac monitoring. The monitor shows a rate of 92 with sinus rhythm. Laboratory studies: As stated above and show below. Imaging studies: X-ray of the right knee was unremarkable Consultation(s): Discussed with Kiel from [facility] service Procedures: none Critical Care: None Past Med/Surg History Medical History Acute dehydration Acute hyperglycemia Acute venous thrombosis GEGE (acute kidney injury) Diabetes Falls History of DVT (deep vein thrombosis) HIV (human immunodeficiency virus infection) Hypertension Partial nontraumatic amputation of foot UTI (urinary tract infection) Surgical History History of carpal tunnel release of both wrists History of carpal tunnel surgery Social History Smoking Status: Former smoker Hx Alcohol Use: No Hx Substance Use: No Preferred Language: Georgian Communication Ability: Impaired Policy Change Clerk Required: No Beliefs That Will Affect Care: None marital status: Single Current Living Situation: Personal Care Facility How many Children do You have: 1 Feels Safe at Home: Yes Assistive Devices: Wheelchair Allergies Allergies Allergy/AdvReac Type Severity Reaction Status Date / Time amoxicillin [From Augmentin] Allergy Severe MERLE Verified 02/14/21 02:00 SYNDROME clams Allergy Severe HIVES Verified 05/23/21 00:39 clavulanic acid Allergy Severe MERLE Verified 02/14/21 02:00 [From Augmentin] SYNDROME ceftriaxone Allergy Intermediate HIVES, Rash Verified 05/23/21 00:39 levofloxacin Allergy Intermediate Hives Verified 02/14/21 02:00 Penicillins Allergy Intermediate CHILLS/RYAN Verified 05/23/21 00:39 RS rosiglitazone [From Avandia] Allergy Intermediate Hives Verified 02/14/21 02:00 vancomycin AdvReac Mild RED MAN Verified 05/23/21 00:39 SYNDROME Home Meds Home Medications Medication Instructions Recorded Confirmed dolutegravir 50 mg tablet (Tivicay) 50 mg PO HS 02/22/20 05/23/21 emtricitabine 200 mg-tenofovir 1 tab PO HS 02/22/20 05/23/21 alafenamide fumarate 25 mg tablet (Descovy) Previous Rx's Medication Instructions Recorded acetaminophen 325 mg tablet 650 mg PO Q4H PRN #30 tab MDD 3 05/28/21 (Tylenol) GRAMS/24 HOURS alfuzosin 10 mg tablet,extended 10 mg PO DAILY #30 tab 05/28/21 release 24 hr aspirin 81 mg chewable tablet 81 mg PO DAILY #30 tab 05/28/21 buspirone 10 mg tablet 20 mg PO BID #60 tab 05/28/21 cholecalciferol (vitamin D3) 125 5,000 unit PO QAM #7 tab 05/28/21 mcg (5,000 unit) tablet clonazepam 0.5 mg tablet 0.5 mg PO BID #30 tab 05/28/21 cyanocobalamin (vitamin B-12) 500 500 mcg SUBLINGUAL DAILY #30 tab 05/28/21 mcg sublingual tablet famotidine 20 mg tablet 20 mg PO BID #60 tab 05/28/21 fluvoxamine 100 mg tablet 100 mg PO BID #60 tab 05/28/21 guaifenesin 600 mg tablet, 600 mg PO Q12H PRN #60 tab 05/28/21 extended release 12 hr (Mucinex) hydroxyzine HCl 50 mg tablet 50 mg PO Q8 #30 tab 05/28/21 insulin glargine 100 unit/mL (3 15 unit SUBCUT DAILY #15 ml 05/28/21 mL) subcutaneous pen (Basaglar KwikPen U-100 Insulin) insulin regular human 100 unit/mL 1 sliding scale dose SUBCUT BID 05/28/21 (3 mL) subcutaneous pen (Novolin R #15 ml Flexpen) metformin 500 mg tablet 500 mg PO BIDM #60 tab 05/28/21 multivitamin with folic acid 400 1 tab PO DAILY #30 tab 05/28/21 mcg tablet (Daily-[place]erson (with folic acid)) risperidone 0.5 mg tablet 0.5 mg PO Q8 #90 tab 05/28/21 Results & Data (ED) Vital Signs Vital Signs - 24 hr 08/27/21 14:37 08/27/21 16:00 08/27/21 18:00 Temperature 36.8 C Temperature Source Oral Pulse Rate 84 Pulse Rate [Right Finger] 87 98 H Pulse Rhythm [Right Finger] Regular Regular Pulse Strength [Right Finger] Normal Normal Respiratory Rate 18 20 18 Respiratory Effort / Characteristics Non-Labored Non-Labored Respiratory Depth Normal Normal Respiratory Pattern Regular Regular Blood Pressure 116/79 Blood Pressure [Right Arm] 116/79 145/86 H Blood Pressure Mean 91 Blood Pressure Mean [Right Arm] 91 105 Blood Pressure Position Sitting Blood Pressure Position [Right Arm] Lying Pulse Oximetry 97 97 100 Oxygen Delivery Method Room Air Room Air Room Air Sepsis Recent Fever Within 48 Hours No Sepsis New/Unexplained Change in Mental Status No Sepsis Action Taken by Nursing No Action Required Laboratory Data Result diagrams: 08/27/21 16:30 08/27/21 16:30 Lab Results 08/27/21 08/27/21 Range/Units 16:30 16:30 WBC 7.37 (4.8-10.8) K/uL RBC 4.08 L (4.2-5.4) M/uL Hgb 11.7 L (12.0-16.0) g/dL Hct 36.5 L (37-47) % MCV 89.5 (80-100) fL MCH 28.7 (25-34) pg MCHC 32.1 (32-36) g/dL RDW Std Deviation 43.4 (36.4-46.3) fL RDW Coeff of [place] 13.3 (11.5-14.5) % Plt Count 240 (130-400) K/uL MPV 9.3 (7.4-10.4) fL Immature Gran % (Auto) 0.5 % Neut % (Auto) 54.3 % Lymph % (Auto) 30.9 % [place] % (Auto) 5.8 % Eos % (Auto) 7.6 % Baso % (Auto) 0.9 % Neut # (Auto) 3.99 (1.4-6.5) K/uL Lymph # (Auto) 2.28 (1.2-3.4) K/uL [place] # (Auto) 0.43 (0.11-0.59) K/uL Eos # (Auto) 0.56 H (0-0.5) K/uL Baso # (Auto) 0.07 (0-0.2) K/uL Immature Gran # (Auto) 0.04 H (0.00-0.02) K/uL Sodium 138 (136-145) mmol/L Potassium 4.3 (3.5-5.1) mmol/L Chloride 105 (98-107) mmol/L Carbon Dioxide 27 (21-32) mmol/L Anion Gap 6 (3-11) BUN 34 H (6-23) mg/dl Creatinine 1.45 H (0.6-1.2) mg/dl Est Cr Clr Drug Dosing 49.5 ml/min Est GFR ( Amer) 45.6 ml/min Est GFR (Non-Af Amer) 39.3 ml/min BUN/Creatinine Ratio 23.4 H (10-20) Glucose 162 H (70-99(Fasting)) mg/dl Calcium 8.6 (8.5-10.1) mg/dl Total Bilirubin 0.3 (0.2-1.0) mg/dl AST 15 (13-39) U/L ALT 11 (7-52) U/L Alkaline Phosphatase 83 (34-104) U/L Total Protein 7.6 (6.0-8.3) gm/dl Albumin 3.8 (3.4-5.0) gm/dl Globulin 3.8 (2.5-4.0) gm/dl Albumin/Globulin Ratio 1.0 (0.9-2) Lipase 47 (11-82) U/L Administered Medications Discontinued Medications Daptomycin 300 mg/ Syringe 6 mls @ 3 mls/min IV NOW ONE; Protocol Stop: 08/27/21 16:08 Last Admin: 08/27/21 18:39 Dose: 3 mls/min Documented by: [id number] Imaging Data Radiologist's Impression: Knee X-Ray 08/27/21 16:27 XR knee RT 3V CLINICAL HISTORY: Right knee pain. COMPARISON: Right knee radiographs May 23, 2021. CT of the right knee May 24, 2021. FINDINGS: No joint effusion is noted. Suprapatellar joint bodies are present. No acute fracture is noted. Marked tricompartmental osteoarthritis of the right knee is noted with joint space narrowing and extensive osteophytosis. Vascular calcification is incidentally noted. Appearance of the right knee is similar to prior CT and radiographs. IMPRESSION: 1. No acute fracture. 2. No significant change in appearance of the right knee with severe tricompartmental osteoarthritis. ACT 112: Negative or not required by law. Electronically signed by: Valentino Beckman M.D. 08/27/2021 5:36 PM Discharge Plan Visit Data Chief Complaint: Knee Injury/Pain Stated Complaint: infection ED Provider: Roni Jacob Discharge Problem: Cellulitis, Fungal infection, Acute knee pain Forms Stand Alone Forms: [facility] [employer] Prescriptions Prescriptions: No Action Tivicay 50 mg tablet 50 mg PO HS RF: 0 Descovy 200-25 mg tablet 1 tab PO HS RF: 0 metformin 500 mg tablet 500 mg PO BIDM Qty: 60 RF: 0 acetaminophen [Tylenol] 325 mg Tablet 650 mg PO Q4H MDD 3 GRAMS/24 HOURS PRN (Reason: FEVER/PAIN) Qty: 30 RF: 0 clonazepam 0.5 mg tablet 0.5 mg PO BID Qty: 30 RF: 0 hydroxyzine HCl 50 mg tablet 50 mg PO Q8 Qty: 30 RF: 0 famotidine 20 mg Tablet 20 mg PO BID Qty: 60 RF: 0 fluvoxamine 100 mg tablet 100 mg PO BID Qty: 60 RF: 0 buspirone 10 mg Tablet 20 mg PO BID Qty: 60 RF: 0 aspirin 81 mg Tablet,Chewable 81 mg PO DAILY Qty: 30 RF: 0 risperidone 0.5 mg tablet 0.5 mg PO Q8 Qty: 90 RF: 0 Novolin R Flexpen 100 unit/mL (3 mL) insulin pen 1 sliding scale dose subcut BID Qty: 15 RF: 0 alfuzosin 10 mg tablet extended release 24 hr 10 mg PO DAILY Qty: 30 RF: 0 Basaglar KwikPen U-100 Insulin 100 unit/mL (3 mL) Insulin Pen 15 unit SUBCUT DAILY Qty: 15 RF: 0 multivitamin with folic acid [Daily-[place] (with folic acid)] 400 mcg tablet 1 tab PO DAILY Qty: 30 RF: 0 guaifenesin [Mucinex] 600 mg Tablet Extended Release 12hr 600 mg PO Q12H PRN (Reason: Congestion) Qty: 60 RF: 0 cyanocobalamin (vitamin B-12) 500 mcg Tablet, Sublingual 500 mcg SUBLINGUAL DAILY Qty: 30 RF: 0 cholecalciferol (vitamin D3) 125 mcg (5,000 unit) Tablet 5,000 unit PO QAM Qty: 7 RF: 0 Referrals Referrals: Rosita Kim [Non-Staff] - Discharge Problem: Cellulitis Qualifiers: Site of cellulitis: unspecified site Qualified Code(s): L03.90 - Cellulitis, unspecified Acute knee pain Qualifiers: Laterality: right Qualified Code(s): M25.561 - Pain in right knee
[2021-08-27] MEDS ORDERED: DAPTOmycin 300 MG in SYRINGE 0 ML IV ONE (16:07)
[2021-08-27 17:05] LABS: Basophils # (auto) 0.07 K/uL (0-0.2); Basophils % (auto) 0.9 %; Eosinophils # (auto) 0.56 K/uL (0-0.5); Eosinophils % (auto) 7.6 %; Hematocrit (blood only) 36.5 % (37-47); Hemoglobin 11.7 g/dL (12.0-16.0); Immature Granulocytes # (auto) 0.04 K/uL (0.00-0.02); Immature Granulocytes % (auto) 0.5 %; Lymphocytes # (auto) 2.28 K/uL (1.2-3.4); Lymphocytes % (auto) 30.9 %; Mean Corpuscular Hemoglobin 28.7 pg (25-34); Mean Corpuscular Hgb Conc 32.1 g/dL (32-36); Mean Corpuscular Volume 89.5 fL (80-100); Mean Platelet Volume 9.3 fL (7.4-10.4); Monocytes # (auto) 0.43 K/uL (0.11-0.59); Monocytes % (auto) 5.8 %; Neutrophils # (auto) 3.99 K/uL (1.4-6.5); Neutrophils % (auto) 54.3 %; Platelet Count 240 K/uL (130-400); RDW Coefficient of Variation 13.3 % (11.5-14.5); RDW Standard Deviation 43.4 fL (36.4-46.3); Red Blood Count 4.08 M/uL (4.2-5.4); White Blood Count 7.37 K/uL (4.8-10.8)
[2021-08-27 17:24] LABS: Albumin Level 3.8 gm/dl (3.4-5.0); BUN Creatinine Ratio 23.4 (10-20); Bilirubin,Total 0.3 mg/dl (0.2-1.0); Calcium 8.6 mg/dl (8.5-10.1); Creatinine Clr Calc Pharmacy 49.5 ml/min; Est GFR (African American) 45.6 ml/min; Est GFR (Non-African American) 39.3 ml/min; Globulin 3.8 gm/dl (2.5-4.0); Potassium 4.3 mmol/L (3.5-5.1); Total Protein 7.6 gm/dl (6.0-8.3)
--- NOTE | 2021-08-27 17:37 | XRay Report ---
XR knee RT 3V CLINICAL HISTORY: Right knee pain. COMPARISON: Right knee radiographs May 23, 2021. CT of the right knee May 24, 2021. FINDINGS: No joint effusion is noted. Suprapatellar joint bodies are present. No acute fracture is n oted. Marked tricompartmental osteoarthritis of the right knee is noted with joint space narrowing an d extensive osteophytosis. Vascular calcification is incidentally noted. Appearance of the right knee is similar to prior CT and radiographs. IMPRESSION: 1. No acute fracture. 2. No significant change in appearance of the right knee with severe tricompartmental osteoarthritis. ACT 112: Negative or not required by law. Electronically signed by: Valentino Beckman M.D. 08/27/2021 5:36 PM
--- NOTE | 2021-08-27 18:58 | History & Physical Report ---
Date of Service August 27, 2021 Assessment & Plan (1) Cellulitis: Plan: Patient is 60 y/o F with PMH insulin-dependent DM II, CKD III, chronic anemia, HIV, history left AKA, depression, anxiety, history of self excoriation, history of MRSA, obesity presented to ER with complaint of right leg redness and was started on outpatient doxycycline on 08/20/21. No improvement of erythema or warmth In ER afebrile, vital stable. No leukocytosis. Lactate and procalcitonin WNL. ESR: 19, CRP: 1.19 Venous Doppler RLE negative for DVT In ER given daptomycin Blood cultures pending Continue daptomycin CBC, BMP in a.m. Positive COVID-19 Positive COVID-19 NAAT. No hypoxia, no shortness of breath or cough Patient reports positive COVID-19 testing approximately 3 weeks ago Isolation precautions Monitor DM II A1c: 7.0 on 05/07/2021 Continue home basal insulin NovoLog sliding scale per protocol CKD III Cr: 1.45. Baseline 1.3-1.4 Monitor renal functions, avoid nephrotoxic agents when possible HIV Continue agustin hernandez Chronic anemia Hgb: 11.7. Baseline 10-12 Depression/anxiety Continue home meds DVT Prophylaxis Lovenox SQ DNR/DNI as per discussion with pt Follows with Dr Theron Springer for routine care. Pt resides at [facility] Pt was seen and care coordinated with Dr Ruiz. See addendum History of Present Illness Chief Complaint: Right leg redness Primary Care Provider: Theron Springer DO Patient is 60 y/o F with PMH insulin-dependent DM II, CKD III, chronic anemia, HIV, history left AKA, depression, anxiety, history of self excoriation, history of MRSA, obesity presented to ER with complaint of right leg redness. Patient reports noted leg redness to right distal thigh that spread distantly to lower leg. She had telemedicine visit with PCP 08/20/2021 and was started on doxycycline for 7 days. Patient reports thought had some initial improvement to redness to right thigh area however remaining leg appears more red. She reports area feels tender to right lower leg. Reports chronic right knee pain and denies any increased pain. Patient admits that she scratches at leg frequently. She reports using a brace to right knee and since onset of redness has been trying to avoid wearing brace at rest. She states she noticed some clear color discharge from area. Denies any other known injury or trauma. Denies fever/chills, diaphoresis, N/V/D/C, SCOTT, dizziness, syncope, vision changes, neck pain, CP, SOB, orthopnea, palpitations, cough, sore throat, choking, otalgia, rhinorrhea, abdominal pain, paresthesias, weakness, extremity weakness, extremity edema, other rashes, urinary symptoms. Allergies Allergy/AdvReac Type Severity Reaction Status Date / Time amoxicillin [From Augmentin] Allergy Severe MERLE Verified 08/27/21 20:23 SYNDROME clams Allergy Severe HIVES Verified 08/27/21 20:23 clavulanic acid Allergy Severe MERLE Verified 08/27/21 20:23 [From Augmentin] SYNDROME ceftriaxone Allergy Intermediate HIVES, Rash Verified 08/27/21 20:23 levofloxacin Allergy Intermediate Hives Verified 08/27/21 20:23 Penicillins Allergy Intermediate CHILLS/RYAN Verified 08/27/21 20:23 RS rosiglitazone [From Avandia] Allergy Intermediate Hives Verified 08/27/21 20:23 vancomycin AdvReac Mild RED MAN Verified 08/27/21 20:23 SYNDROME Home Medications Medication Instructions Recorded Confirmed Type dolutegravir 50 mg tablet (Tivicay) 50 mg PO HS 02/22/20 08/27/21 History emtricitabine 200 mg-tenofovir 1 tab PO HS 02/22/20 08/27/21 History alafenamide fumarate 25 mg tablet (Descovy) acetaminophen 325 mg tablet 650 mg PO Q4H PRN #30 tab MDD 3 05/28/21 08/27/21 Rx (Tylenol) GRAMS/24 HOURS alfuzosin 10 mg tablet,extended 10 mg PO DAILY #30 tab 05/28/21 08/27/21 Rx release 24 hr aspirin 81 mg chewable tablet 81 mg PO DAILY #30 tab 05/28/21 08/27/21 Rx buspirone 10 mg tablet 20 mg PO BID #60 tab 05/28/21 08/27/21 Rx clonazepam 0.5 mg tablet 0.5 mg PO BID #30 tab 05/28/21 08/27/21 Rx cyanocobalamin (vitamin B-12) 500 500 mcg SUBLINGUAL DAILY #30 tab 05/28/21 08/27/21 Rx mcg sublingual tablet famotidine 20 mg tablet 20 mg PO BID #60 tab 05/28/21 08/27/21 Rx fluvoxamine 100 mg tablet 100 mg PO BID #60 tab 05/28/21 08/27/21 Rx guaifenesin 600 mg tablet, 600 mg PO Q12H PRN #60 tab 05/28/21 08/27/21 Rx extended release 12 hr (Mucinex) hydroxyzine HCl 50 mg tablet 50 mg PO Q8 #30 tab 05/28/21 08/27/21 Rx metformin 500 mg tablet 500 mg PO BIDM #60 tab 05/28/21 08/27/21 Rx multivitamin with folic acid 400 1 tab PO DAILY #30 tab 05/28/21 08/27/21 Rx mcg tablet (Daily-[place] (with folic acid)) risperidone 0.5 mg tablet 0.5 mg PO Q8 #90 tab 05/28/21 08/27/21 Rx cholecalciferol (vitamin D3) 25 25 mcg PO QAM 08/27/21 08/27/21 History mcg (1,000 unit) tablet doxycycline hyclate 100 mg capsule 100 mg PO BID 08/27/21 08/27/21 History insulin aspart U-100 100 unit/mL 0 unit SUBCUT .TIDM &HS 08/27/21 08/27/21 History (3 mL) subcutaneous pen (Novolog Flexpen U-100 Insulin aspart) insulin aspart U-100 100 unit/mL 5 unit SUBCUT .BIDM &HS 08/27/21 08/27/21 History (3 mL) subcutaneous pen (Novolog Flexpen U-100 Insulin aspart) insulin glargine 100 unit/mL (3 15 unit SUBCUT QAM 08/27/21 08/27/21 History mL) subcutaneous pen (Basaglar KwikPen U-100 Insulin) lidocaine 4 % topical patch 1 patch TOPICAL QAM 08/27/21 08/27/21 History loperamide 2 mg capsule 2 mg PO Q6H PRN 08/27/21 08/27/21 History Past Med/Surg History Medical History Acute dehydration Acute hyperglycemia Acute venous thrombosis GEGE (acute kidney injury) Diabetes Falls History of DVT (deep vein thrombosis) HIV (human immunodeficiency virus infection) Hypertension Partial nontraumatic amputation of foot UTI (urinary tract infection) Surgical History History of carpal tunnel release of both wrists History of carpal tunnel surgery Family History Other Breast cancer Diabetes Hypertension Social History Smoking Status: Former smoker Hx Alcohol Use: No Hx Substance Use: No Preferred Language: Faroese Communication Ability: Impaired 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 Beliefs That Will Affect Care: None marital status: Single Current Living Situation: Personal Care Facility How many Children do You have: 1 Feels Safe at Home: Yes Assistive Devices: Wheelchair Review of Systems Review of Systems: All systems reviewed & are unremarkable except as noted in HPI & below Physical Exam Physical Exam: General: no distress, obese Head: normocephalic, atraumatic Eyes: PERRL, EOM's intact, conjunctiva non-injected, anicteric ENT: normal inspection external ears, nose, mucous membranes moist Neck: supple, trachea midline Lungs: clear, no respiratory distress, no wheezing/rhonchi/rales CV: RRR, no pretibial edema Abd: protuberant, normal BS, soft, non-tender Ext: LLE: +AKA, RLE: +amputation of all toes, right distal thigh warmth and erythema extending to distal lower leg, medial aspect of knee with severe excoriations, no area of fluctuance, no active drainage noted Neuro: A&O x 3, no focal deficits noted, normal affect Skin: warm, dry Results & Data Results & Data ([facility]) Vital Signs (Past 12 Hours) Vital Signs Temp Pulse Pulse Resp BP BP Pulse Ox 08/27/21 18:00 98 H 18 145/86 H 100 08/27/21 16:00 87 20 116/79 97 08/27/21 14:37 36.8 C 84 18 116/79 97 Laboratory Results Short CBC 08/27/21 Range/Units 16:30 WBC 7.37 (4.8-10.8) K/uL Hgb 11.7 L (12.0-16.0) g/dL Hct 36.5 L (37-47) % Plt Count 240 (130-400) K/uL BMP 08/27/21 16:30 Sodium 138 Potassium 4.3 Chloride 105 Carbon Dioxide 27 BUN 34 H Creatinine 1.45 H Glucose 162 H Calcium 8.6 Liver Function 08/27/21 Range/Units 16:30 Total Bilirubin 0.3 (0.2-1.0) mg/dl AST 15 (13-39) U/L ALT 11 (7-52) U/L Alkaline Phosphatase 83 (34-104) U/L Albumin 3.8 (3.4-5.0) gm/dl Diagnostic Findings Knee X-Ray 08/27/21 16:27 XR knee RT 3V CLINICAL HISTORY: Right knee pain. COMPARISON: Right knee radiographs May 23, 2021. CT of the right knee May 24, 2021. FINDINGS: No joint effusion is noted. Suprapatellar joint bodies are present. No acute fracture is noted. Marked tricompartmental osteoarthritis of the right knee is noted with joint space narrowing and extensive osteophytosis. Vascular calcification is incidentally noted. Appearance of the right knee is similar to prior CT and radiographs. IMPRESSION: 1. No acute fracture. 2. No significant change in appearance of the right knee with severe tricompartmental osteoarthritis. ACT 112: Negative or not required by law. Electronically signed by: Valentino Beckman M.D. 08/27/2021 5:36 PM Venous Doppler Study 08/27/21 18:53 RIGHT LOWER EXTREMITY VENOUS DOPPLER CLINICAL HISTORY: erythema, tenderness, r/o dvt COMPARISON STUDY: Right lower extremity venous Doppler ultrasound May 06, 2021. TECHNIQUE: Sonography of the deep venous system of the right lower extremity w as performed. Compression and augmentation were evaluated. FINDINGS: This exam was compromised by suboptimal penetration. The right common femoral, superficial femoral and popliteal veins were compressible. Augmentation was normal. Flow was shown within the deep calf vessels. IMPRESSION: Technique difficult exam but no evidence of deep venous thrombus within the right lower extremity. ACT 112: Negative or not required by law. Electronically signed by: Valentino Beckman M.D. 08/27/2021 7:37 PM Code Status & VTE Plan VTE Prophylaxis Plan VTE Prophylaxis will be ordered: Yes Supervising Physician Co-Signing Physician Notes Patient was seen and examined independently at bedside. Chart reviewed. Case discussed with Shirley LORA and agree with the documentation above. In summary, this is a 60 year old female with HIV on treatment, DM2 on insulin, s/p left BKA and right TMA who presented to the ED with worsening RLE cellulitis. States started 2 weeks ago and she completed antibiotic course 2 days back, the cellulitis improved but again worsened. Denies any fever, chills, purulent discharge. Afebrile, vitals stable. No leucocytosis, procal negative, lactate normal, ESR normal, CRP mildly elevated. Given daptomycin in the ED given her ABx allergies. Her RLE cellulitis looks superficial with no purulent discharge and she does not look sick or septic. Agree with continuing daptomycin and monitor for improvement. WOCN eval. If discharge, send for wound culture. Also she tested positive for COVID in the ED but states she had tested positive 3 weeks back at the [facility] and had symptoms for couple days, currently asymptomatic- likely virus lingering and would not require any treatment. Other chronic medical conditions stable. Rest as per the note above. (1) Cellulitis Site of cellulitis: unspecified site Qualified Code(s): L03.90 - Cellulitis, unspecified
--- NOTE | 2021-08-27 19:39 | Ultrasound Report ---
RIGHT LOWER EXTREMITY VENOUS DOPPLER CLINICAL HISTORY: erythema, tenderness, r/o dvt COMPARISON STUDY: Right lower extremity venous Doppler ultrasound May 06, 2021. TECHNIQUE: Sonography of the deep venous system of the right lower extremity was performed. Compress ion and augmentation were evaluated. FINDINGS: This exam was compromised by suboptimal penetration. The right common femoral, superficial femoral and popliteal veins were compressible. Augmentation was normal. Flow was shown within the de ep calf vessels. IMPRESSION: Technique difficult exam but no evidence of deep venous thrombus within the right lower e xtremity. ACT 112: Negative or not required by law. Electronically signed by: Valentino Beckman M.D. 08/27/2021 7:37 PM
[2021-08-27] MEDS ORDERED: CARBOHYDRATES FOR HYPOGLYCEMIA PO PRN (20:51)
[2021-08-27] MEDS ORDERED: ALUMINUM/MAGNESIUM SUSP 30 ML UDC PO PRN (20:51)
[2021-08-27] MEDS ORDERED: ONDANSETRON INJ 2 MG/ML 2 ML VIAL IV PRN (20:51)
[2021-08-27] MEDS ORDERED: GLUCOSE 10 TABS/TUBE PO PRN (20:51)
[2021-08-27] MEDS ORDERED: GLUCOSE 40% GEL 15 GM TUBE PO PRN (20:51)
[2021-08-27] MEDS ORDERED: DEXTROSE 50% 50 ML SYRINGE IV PRN (20:51)
[2021-08-27] MEDS ORDERED: GLUCAGON FOR INJ 1 MG VIAL SQ PRN (20:51)
[2021-08-27] MEDS ORDERED: MAGNESIUM HYDROXIDE SUSP 30 ML UDC PO PRN (20:51)
[2021-08-27] MEDS ORDERED: POLYETHYLENE (MIRALAX) 17 GM PACK PO PRN (20:51)
[2021-08-27] MEDS: INSULIN ASPART PER UNIT SC SCH (22:58)
[2021-08-27] MEDS: ENOXAPARIN INJ 40 MG/0.4 ML SYR SQ SCH (23:27)
[2021-08-27] MEDS: clonazePAM 0.5 MG TAB PO SCH (23:28)
[2021-08-27] MEDS: fluvoxaMINE MALEATE 50 MG TAB PO SCH (23:28)
[2021-08-27] MEDS: busPIRone 5 MG TAB PO SCH (23:28)
[2021-08-27] MEDS: risperiDONE 0.5 MG TABLET PO SCH (23:28)
[2021-08-27] MEDS: FAMOTIDINE 20 MG TAB PO SCH (23:29)
[2021-08-27] MEDS: DOLUTEGRAVIR SODIUM 50 MG TAB PO SCH (23:29)
[2021-08-28] MEDS: risperiDONE 0.5 MG TABLET PO SCH ×3 (06:01→21:31)
[2021-08-28] MEDS: LIDOCAINE 5% 1 PATCH TD SCH (08:35)
[2021-08-28] MEDS: fluvoxaMINE MALEATE 50 MG TAB PO SCH ×2 (08:37→21:29)
[2021-08-28] MEDS: clonazePAM 0.5 MG TAB PO SCH ×2 (08:37→21:30)
[2021-08-28] MEDS: CYANOCOBALAMIN (B-12) 500 MCG TABLET PO SCH (08:37)
[2021-08-28] MEDS: MULTIVITAMIN TAB PO SCH (08:37)
[2021-08-28] MEDS: busPIRone 5 MG TAB PO SCH ×2 (08:37→21:30)
[2021-08-28] MEDS: ASPIRIN 81 MG CHEW PO SCH (08:37)
[2021-08-28] MEDS: ALFUZOSIN HCL 10 MG TAB PO SCH (08:37)
[2021-08-28] MEDS: CHOLECALCIFEROL 1,000 UNITS 25 MCG TAB PO SCH (08:37)
[2021-08-28] MEDS: FAMOTIDINE 20 MG TAB PO SCH ×2 (08:41→21:30)
[2021-08-28] MEDS: INSULIN ASPART PER UNIT SC SCH ×4 (09:38→21:35)
[2021-08-28] MEDS: INSULIN GLARGINE SOLOSTAR 100 UNITS/ML 3 ML PEN SC SCH (09:39)
[2021-08-28 10:53] LABS: Hematocrit (blood only) 34.6 % (37-47); Mean Corpuscular Hemoglobin 28.1 pg (25-34); Mean Corpuscular Hgb Conc 31.8 g/dL (32-36); Mean Corpuscular Volume 88.5 fL (80-100); Mean Platelet Volume 8.9 fL (7.4-10.4); Platelet Count 222 K/uL (130-400); RDW Coefficient of Variation 13.6 % (11.5-14.5); RDW Standard Deviation 43.5 fL (36.4-46.3); Red Blood Count 3.91 M/uL (4.2-5.4)
[2021-08-28 11:10] LABS: Calcium 8.5 mg/dl (8.5-10.1); Creatinine Clr Calc Pharmacy 58.9 ml/min; Est GFR (African American) 56.2 ml/min; Est GFR (Non-African American) 48.5 ml/min; Potassium 4.3 mmol/L (3.5-5.1)
[2021-08-28] MEDS: ACETAMINOPHEN 325 MG TAB PO PRN ×2 (14:15→21:31)
--- NOTE | 2021-08-28 15:12 | Hospitalist Progress Note ---
Date of Service August 28, 2021 Assessment & Plan (1) Cellulitis: Plan: Patient is a 60 yr female with H/O Insulin-dependent DM II, CKD III, chronic anemia, HIV, history left AKA, depression, anxiety, history of self excoriation, history of MRSA, obesity presented to ER with complaint of right leg redness and was started on outpatient doxycycline on 08/20/21. No improvement of erythema or warmth Right Lower Extremity Cellulitis --Venous Doppler RLE negative for DVT --Right Knee X ray:No acute fracture. No significant change in appearance of the right knee with severe tricompartmental osteoarthritis. Blood Cultures:pending Continue Daptomycin Monitor COVID-19 Infection Patient reports positive COVID-19 testing approximately 3 weeks ago Isolation precautions Monitor Saturating well on room air Asymptomatic currently DM II A1c: 7.0 on 05/07/2021 Continue home basal insulin NovoLog sliding scale per protocol CKD III Baseline Cr 1.3-1.4 Cr:1.22 Monitor renal functions Avoid nephrotoxic agents when possible HIV Continue agustin hernandez Chronic anemia Hgb at baseline Depression/anxiety Continue home meds DVT Prophylaxis Lovenox SQ Code Status DNR/DNI Admission and Anticipated Discharge Date Admission Date: August 27, 2021 Subjective Patient is seen and examined at bedside States having right leg pain, itching, redness Denies any chest pain, shortness of breath, dizziness, nausea, abdominal pain, cough Offers no other complaints Saturating well on room air Review of Systems Review of Systems: All systems reviewed & are unremarkable except as noted in Subjective Physical Exam Physical Exam: Physical Exam: Vitals signs as noted above General Appearance:Obese, No apparent distress Head: normocephalic, Atraumatic Eyes: normal inspection, EOMI Neck: supple, Trachea midline Respiratory/Chest: Normal breath sounds, CTA, No accessory muscle use Cardiovascular: S1, S2, No murmur Abdomen/GI:Soft, Non tender, Bowel sounds present Extremities/Musculoskeletal:normal inspection, RLE erythematous, warm, S/P toe amputation, L AKA Neurologic/Psych:AAOX3, grossly no focal neurological deficits Skin: normal color, warm Results & Data Results & Data ([facility]) Vital Signs (Past 12 Hours) Vital Signs Temp Pulse Resp BP Pulse Ox 08/28/21 14:18 37 C 85 18 115/79 95 08/28/21 11:08 36.8 C 96 H 18 135/82 97 08/28/21 07:56 36.8 C 92 H 20 156/93 H 96 Laboratory Results Short CBC 08/27/21 08/28/21 Range/Units 16:30 10:34 WBC 7.37 6.40 (4.8-10.8) K/uL Hgb 11.7 L 11.0 L (12.0-16.0) g/dL Hct 36.5 L 34.6 L (37-47) % Plt Count 240 222 (130-400) K/uL BMP 08/27/21 08/28/21 16:30 10:34 Sodium 138 138 Potassium 4.3 4.3 Chloride 105 106 Carbon Dioxide 27 27 BUN 34 H 28 H Creatinine 1.45 H 1.22 H Glucose 162 H 201 H Calcium 8.6 8.5 Liver Function 08/27/21 Range/Units 16:30 Total Bilirubin 0.3 (0.2-1.0) mg/dl AST 15 (13-39) U/L ALT 11 (7-52) U/L Alkaline Phosphatase 83 (34-104) U/L Albumin 3.8 (3.4-5.0) gm/dl (1) Cellulitis Site of cellulitis: unspecified site Qualified Code(s): L03.90 - Cellulitis, unspecified
[2021-08-28] MEDS: DAPTOmycin 300 MG in SYRINGE 0 ML IV SCH (17:55)
[2021-08-28] MEDS: DOLUTEGRAVIR SODIUM 50 MG TAB PO SCH (21:30)
[2021-08-28] MEDS: ENOXAPARIN INJ 40 MG/0.4 ML SYR SQ SCH (21:32)
[2021-08-28] MEDS: EUCERIN CR 120 GM JAR EXT SCH (22:17)
[2021-08-29] MEDS: risperiDONE 0.5 MG TABLET PO SCH ×3 (05:34→22:10)
[2021-08-29] MEDS: INSULIN ASPART PER UNIT SC SCH ×4 (09:12→22:04)
[2021-08-29] MEDS: INSULIN GLARGINE SOLOSTAR 100 UNITS/ML 3 ML PEN SC SCH (09:15)
[2021-08-29] MEDS: CHOLECALCIFEROL 1,000 UNITS 25 MCG TAB PO SCH (09:29)
[2021-08-29] MEDS: fluvoxaMINE MALEATE 50 MG TAB PO SCH ×2 (09:30→22:10)
[2021-08-29] MEDS: FAMOTIDINE 20 MG TAB PO SCH ×2 (09:30→22:10)
[2021-08-29] MEDS: busPIRone 5 MG TAB PO SCH ×2 (09:30→22:11)
[2021-08-29] MEDS: LIDOCAINE 5% 1 PATCH TD SCH (09:31)
[2021-08-29] MEDS: MULTIVITAMIN TAB PO SCH (09:31)
[2021-08-29] MEDS: ASPIRIN 81 MG CHEW PO SCH (09:31)
[2021-08-29] MEDS: CYANOCOBALAMIN (B-12) 500 MCG TABLET PO SCH (09:31)
[2021-08-29] MEDS: EUCERIN CR 120 GM JAR EXT SCH ×2 (09:32→22:10)
[2021-08-29] MEDS: ALFUZOSIN HCL 10 MG TAB PO SCH (09:33)
[2021-08-29] MEDS: ACETAMINOPHEN 325 MG TAB PO PRN ×2 (09:46→22:12)
[2021-08-29] MEDS: clonazePAM 0.5 MG TAB PO SCH ×2 (09:46→22:11)
[2021-08-29 10:34] LABS: BUN Creatinine Ratio 21.3 (10-20); Calcium 8.6 mg/dl (8.5-10.1); Creatinine Clr Calc Pharmacy 50.9 ml/min; Est GFR (African American) 47.1 ml/min; Est GFR (Non-African American) 40.7 ml/min; Potassium 4.3 mmol/L (3.5-5.1)
--- NOTE | 2021-08-29 16:54 | Hospitalist Progress Note ---
Date of Service August 29, 2021 Assessment & Plan (1) Cellulitis: Plan: Patient is a 60 yr female with H/O Insulin-dependent DM II, CKD III, chronic anemia, HIV, history left AKA, depression, anxiety, history of self excoriation, history of MRSA, obesity presented to ER with complaint of right leg redness and was started on outpatient doxycycline on 08/20/21. No improvement of erythema or warmth Right Lower Extremity Cellulitis --Venous Doppler RLE negative for DVT --Right Knee X ray:No acute fracture. No significant change in appearance of the right knee with severe tricompartmental osteoarthritis. Blood Cultures:No growth to date Continue Daptomycin Slowly improving Consulted Orthotics to assess RLE Brace COVID-19 Infection Patient reports positive COVID-19 testing approximately 3 weeks ago Isolation precautions Monitor Saturating well on room air Asymptomatic currently DM II A1c: 7.0 on 05/07/2021 Continue home basal insulin NovoLog sliding scale per protocol CKD III Baseline Cr 1.3-1.4 Cr at baseline Monitor renal functions Avoid nephrotoxic agents when possible HIV Continue agustin hernandez Chronic anemia Hgb at baseline Depression/anxiety Continue home meds DVT Prophylaxis Lovenox SQ Code Status DNR/DNI Disposition Case management to help with discharge planning Admission and Anticipated Discharge Date Admission Date: August 27, 2021 Subjective Patient is seen and examined at bedside Right leg pain, itching, redness better today No new complaints Denies any chest pain, shortness of breath, dizziness, nausea, abdominal pain, cough Review of Systems Review of Systems: All systems reviewed & are unremarkable except as noted in Subjective Physical Exam Physical Exam: Physical Exam: Vitals signs as noted above General Appearance:Obese, No apparent distress Head: normocephalic, Atraumatic Eyes: normal inspection, EOMI Neck: supple, Trachea midline Respiratory/Chest: Normal breath sounds, CTA, No accessory muscle use Cardiovascular: S1, S2, No murmur Abdomen/GI:Soft, Non tender, Bowel sounds present Extremities/Musculoskeletal:normal inspection, RLE erythematous, warm, S/P toe amputation, L AKA Neurologic/Psych:AAOX3, grossly no focal neurological deficits Skin: normal color, warm Results & Data Results & Data ([facility]) Vital Signs (Past 12 Hours) Vital Signs Temp Pulse Resp BP Pulse Ox 08/29/21 15:24 36.6 C 79 16 104/73 95 08/29/21 08:04 36.4 C L 73 16 110/77 94 Laboratory Results [facility] 08/29/21 09:50 Sodium 138 Potassium 4.3 Chloride 106 Carbon Dioxide 26 BUN 30 H Creatinine 1.41 H Glucose 176 H Calcium 8.6 (1) Cellulitis Site of cellulitis: unspecified site Qualified Code(s): L03.90 - Cellulitis, unspecified
[2021-08-29] MEDS: DAPTOmycin 300 MG in SYRINGE 0 ML IV SCH (18:29)
[2021-08-29] MEDS: ENOXAPARIN INJ 40 MG/0.4 ML SYR SQ SCH (22:11)
[2021-08-30] MEDS: risperiDONE 0.5 MG TABLET PO SCH ×3 (06:07→21:25)
[2021-08-30 07:42] LABS: BUN Creatinine Ratio 20.9 (10-20); Calcium 8.6 mg/dl (8.5-10.1); Creatinine Clr Calc Pharmacy 46.9 ml/min; Est GFR (African American) 42.7 ml/min; Est GFR (Non-African American) 36.8 ml/min; Potassium 4.1 mmol/L (3.5-5.1)
[2021-08-30] MEDS: busPIRone 5 MG TAB PO SCH ×2 (10:16→21:25)
[2021-08-30] MEDS: FAMOTIDINE 20 MG TAB PO SCH ×2 (10:16→21:26)
[2021-08-30] MEDS: CHOLECALCIFEROL 1,000 UNITS 25 MCG TAB PO SCH (10:16)
[2021-08-30] MEDS: CYANOCOBALAMIN (B-12) 500 MCG TABLET PO SCH (10:16)
[2021-08-30] MEDS: MULTIVITAMIN TAB PO SCH (10:16)
[2021-08-30] MEDS: fluvoxaMINE MALEATE 50 MG TAB PO SCH ×2 (10:16→21:26)
[2021-08-30] MEDS: ALFUZOSIN HCL 10 MG TAB PO SCH (10:16)
[2021-08-30] MEDS: ASPIRIN 81 MG CHEW PO SCH (10:16)
[2021-08-30] MEDS: ACETAMINOPHEN 325 MG TAB PO PRN ×2 (10:38→21:26)
[2021-08-30] MEDS: clonazePAM 0.5 MG TAB PO SCH ×2 (10:38→21:25)
[2021-08-30] MEDS: EUCERIN CR 120 GM JAR EXT SCH ×2 (10:40→21:26)
[2021-08-30] MEDS: LIDOCAINE 5% 1 PATCH TD SCH (10:41)
[2021-08-30] MEDS: INSULIN ASPART PER UNIT SC SCH ×4 (10:50→20:24)
[2021-08-30] MEDS: INSULIN GLARGINE SOLOSTAR 100 UNITS/ML 3 ML PEN SC SCH (10:51)
--- NOTE | 2021-08-30 16:06 | Hospitalist Progress Note ---
Date of Service August 30, 2021 Assessment & Plan (1) Cellulitis: Plan: Patient is a 60 yr female with H/O Insulin-dependent DM II, CKD III, chronic anemia, HIV, history left AKA, depression, anxiety, history of self excoriation, history of MRSA, obesity presented to ER with complaint of right leg redness and was started on outpatient doxycycline on 08/20/21. No improvement of erythema or warmth Right Lower Extremity Cellulitis --Venous Doppler RLE negative for DVT --Right Knee X ray:No acute fracture. No significant change in appearance of the right knee with severe tricompartmental osteoarthritis. Blood Cultures:No growth to date Continue Daptomycin Consulted Orthotics to assess RLE Brace-- will eval on Wednesday no signs of sepsis May need rehab placement COVID-19 Infection Patient reports positive COVID-19 testing approximately 3 weeks ago Isolation precautions Monitor Saturating well on room air Asymptomatic DM II A1c: 7.0 on 05/07/2021 Continue home basal insulin NovoLog sliding scale per protocol CKD III Baseline Cr 1.3-1.4 Cr at baseline Monitor renal functions Avoid nephrotoxic agents when possible HIV Continue agustin hernandez Chronic anemia Hgb at baseline Depression/anxiety Continue home meds DVT Prophylaxis Lovenox SQ Code Status DNR/DNI Disposition Case management to help with discharge planning Admission and Anticipated Discharge Date Admission Date: August 27, 2021 Subjective Patient is seen and examined at bedside Saturating well on room air Right leg pain, itching, redness continues to improve Denies any chest pain, shortness of breath, dizziness, nausea, abdominal pain, cough Review of Systems Review of Systems: All systems reviewed & are unremarkable except as noted in Subjective Physical Exam Physical Exam: Physical Exam: Vitals signs as noted above General Appearance:Obese, No apparent distress Head: normocephalic, Atraumatic Eyes: normal inspection, EOMI Neck: supple, Trachea midline Respiratory/Chest: Normal breath sounds, CTA, No accessory muscle use Cardiovascular: S1, S2, No murmur Abdomen/GI:Soft, Non tender, Bowel sounds present Extremities/Musculoskeletal:normal inspection, RLE erythema improved , warm, S/P toe amputation, L AKA Neurologic/Psych:AAOX3, grossly no focal neurological deficits Skin: normal color, warm Results & Data Results & Data ([facility]) Vital Signs (Past 12 Hours) Vital Signs Temp Pulse Resp BP Pulse Ox 08/30/21 09:07 37.4 C 83 18 130/88 96 Laboratory Results BMP 08/30/21 06:17 Sodium 138 Potassium 4.1 Chloride 106 Carbon Dioxide 25 BUN 32 H Creatinine 1.53 H Glucose 144 H Calcium 8.6 (1) Cellulitis Site of cellulitis: unspecified site Qualified Code(s): L03.90 - Cellulitis, unspecified
[2021-08-30] MEDS: DAPTOmycin 300 MG in SYRINGE 0 ML IV SCH (18:33)
[2021-08-30] MEDS: ENOXAPARIN INJ 40 MG/0.4 ML SYR SQ SCH (21:25)
[2021-08-30] MEDS: DESCOVY PO SCH (21:27)
[2021-08-30] MEDS: DOLUTEGRAVIR SODIUM 50 MG TAB PO SCH (21:27)
[2021-08-31] MEDS: risperiDONE 0.5 MG TABLET PO SCH ×3 (06:07→21:21)
[2021-08-31] MEDS: CYANOCOBALAMIN (B-12) 500 MCG TABLET PO SCH (09:34)
[2021-08-31] MEDS: fluvoxaMINE MALEATE 50 MG TAB PO SCH ×2 (09:34→21:21)
[2021-08-31] MEDS: MULTIVITAMIN TAB PO SCH (09:34)
[2021-08-31] MEDS: FAMOTIDINE 20 MG TAB PO SCH ×2 (09:34→21:21)
[2021-08-31] MEDS: ASPIRIN 81 MG CHEW PO SCH (09:35)
[2021-08-31] MEDS: CHOLECALCIFEROL 1,000 UNITS 25 MCG TAB PO SCH (09:35)
[2021-08-31] MEDS: ALFUZOSIN HCL 10 MG TAB PO SCH (09:35)
[2021-08-31] MEDS: busPIRone 5 MG TAB PO SCH ×2 (09:35→21:21)
[2021-08-31] MEDS: LIDOCAINE 5% 1 PATCH TD SCH (09:37)
[2021-08-31] MEDS: EUCERIN CR 120 GM JAR EXT SCH ×2 (09:38→21:23)
[2021-08-31] MEDS: INSULIN ASPART PER UNIT SC SCH ×4 (09:49→20:38)
[2021-08-31] MEDS: INSULIN GLARGINE SOLOSTAR 100 UNITS/ML 3 ML PEN SC SCH (09:50)
[2021-08-31] MEDS: clonazePAM 0.5 MG TAB PO SCH ×2 (09:56→21:21)
[2021-08-31] MEDS: ACETAMINOPHEN 325 MG TAB PO PRN ×2 (09:56→21:21)
--- NOTE | 2021-08-31 16:48 | Hospitalist Progress Note ---
Date of Service August 31, 2021 Assessment & Plan (1) Cellulitis: Plan: Patient is a 60 yr female with H/O Insulin-dependent DM II, CKD III, chronic anemia, HIV, history left AKA, depression, anxiety, history of self excoriation, history of MRSA, obesity presented to ER with complaint of right leg redness and was started on outpatient doxycycline on 08/20/21. No improvement of erythema or warmth Right Lower Extremity Cellulitis --Venous Doppler RLE negative for DVT --Right Knee X ray:No acute fracture. No significant change in appearance of the right knee with severe tricompartmental osteoarthritis. Blood Cultures:No growth to date Continue Daptomycin for now Consulted Orthotics to assess RLE Brace-- pending No signs of sepsis May need rehab placement Management to help with discharge planning COVID-19 Infection Patient reports positive COVID-19 testing approximately 3 weeks ago Isolation precautions Monitor Saturating well on room air Asymptomatic DM II A1c: 7.0 on 05/07/2021 Continue home basal insulin NovoLog sliding scale per protocol CKD III Baseline Cr 1.3-1.4 Cr at baseline Monitor renal functions Avoid nephrotoxic agents when possible Cr 1.5 today HIV Continue agustin hernandez Chronic anemia Hgb at baseline Depression/anxiety Continue home meds DVT Prophylaxis Lovenox SQ Code Status DNR/DNI Disposition Case management to help with discharge planning Admission and Anticipated Discharge Date Admission Date: August 27, 2021 Subjective Patient is seen and examined at bedside No new complaints RLE erythema, swelling slowly improving Denies any chest pain, shortness of breath, dizziness, nausea, abdominal pain, cough Saturating well on room air Review of Systems Review of Systems: All systems reviewed & are unremarkable except as noted in Subjective Physical Exam Physical Exam: Physical Exam: Vitals signs as noted above General Appearance:Obese, No apparent distress Head: normocephalic, Atraumatic Eyes: normal inspection, EOMI Neck: supple, Trachea midline Respiratory/Chest: Normal breath sounds, CTA, No accessory muscle use Cardiovascular: S1, S2, No murmur Abdomen/GI:Soft, Non tender, Bowel sounds present Extremities/Musculoskeletal:normal inspection, RLE erythema improved , warm, S/P toe amputation, L AKA Neurologic/Psych:AAOX3, grossly no focal neurological deficits Skin: normal color, warm Results & Data Results & Data ([facility]) Vital Signs (Past 12 Hours) Vital Signs Temp Pulse Resp BP Pulse Ox 08/31/21 08:47 36.6 C 83 18 118/78 95 (1) Cellulitis Site of cellulitis: unspecified site Qualified Code(s): L03.90 - Cellulitis, unspecified
[2021-08-31] MEDS: DAPTOmycin 300 MG in SYRINGE 0 ML IV SCH (18:45)
[2021-08-31] MEDS: ENOXAPARIN INJ 40 MG/0.4 ML SYR SQ SCH (21:20)
[2021-08-31] MEDS: DESCOVY PO SCH (21:22)
[2021-08-31] MEDS: DOLUTEGRAVIR SODIUM 50 MG TAB PO SCH (21:23)
[2021-09-01] MEDS: risperiDONE 0.5 MG TABLET PO SCH ×3 (06:01→22:13)
[2021-09-01] MEDS: MULTIVITAMIN TAB PO SCH (09:30)
[2021-09-01] MEDS: CYANOCOBALAMIN (B-12) 500 MCG TABLET PO SCH (09:30)
[2021-09-01] MEDS: CHOLECALCIFEROL 1,000 UNITS 25 MCG TAB PO SCH (09:31)
[2021-09-01] MEDS: ASPIRIN 81 MG CHEW PO SCH (09:31)
[2021-09-01] MEDS: ALFUZOSIN HCL 10 MG TAB PO SCH (09:31)
[2021-09-01] MEDS: busPIRone 5 MG TAB PO SCH ×2 (09:31→22:13)
[2021-09-01] MEDS: FAMOTIDINE 20 MG TAB PO SCH ×2 (09:31→22:14)
[2021-09-01] MEDS: fluvoxaMINE MALEATE 50 MG TAB PO SCH ×2 (09:31→22:13)
[2021-09-01] MEDS: LIDOCAINE 5% 1 PATCH TD SCH (09:34)
[2021-09-01] MEDS: EUCERIN CR 120 GM JAR EXT SCH ×2 (09:34→22:14)
[2021-09-01] MEDS: INSULIN ASPART PER UNIT SC SCH ×4 (09:42→21:37)
[2021-09-01] MEDS: clonazePAM 0.5 MG TAB PO SCH ×2 (09:50→22:13)
[2021-09-01] MEDS: ACETAMINOPHEN 325 MG TAB PO PRN ×2 (09:50→22:14)
[2021-09-01] MEDS: INSULIN GLARGINE SOLOSTAR 100 UNITS/ML 3 ML PEN SC SCH (09:56)
[2021-09-01 13:00] LABS: Est GFR (Non-African American) 46.6 ml/min
[2021-09-01] MEDS: DAPTOmycin 300 MG in SYRINGE 0 ML IV SCH (18:32)
--- NOTE | 2021-09-01 19:38 | Hospitalist Progress Note ---
Date of Service September 01, 2021 Assessment & Plan (1) Cellulitis: Plan: Patient is a 60 yr female with H/O Insulin-dependent DM II, CKD III, chronic anemia, HIV, history left AKA, depression, anxiety, history of self excoriation, history of MRSA, obesity presented to ER with complaint of right leg redness and was started on outpatient doxycycline on 08/20/21. No improvement of erythema or warmth Right Lower Extremity Cellulitis --Venous Doppler RLE negative for DVT --Right Knee X ray:No acute fracture. No significant change in appearance of the right knee with severe tricompartmental osteoarthritis. Blood Cultures:No growth to date Continue Daptomycin for now Consulted Orthotics to replace RLE Brace No signs of sepsis Needs rehab placement once brace arranged Clinically improving COVID-19 Infection Patient reports positive COVID-19 testing approximately 3 weeks ago Isolation precautions Monitor Saturating well on room air Asymptomatic DM II A1c: 7.0 on 05/07/2021 Continue home basal insulin NovoLog sliding scale per protocol CKD III Baseline Cr 1.3-1.4 Cr at baseline Monitor renal functions Avoid nephrotoxic agents when possible Cr 1.2 today HIV Continue agustin hernandez Chronic anemia Hgb at baseline Depression/anxiety Continue home meds DVT Prophylaxis Lovenox SQ Code Status DNR/DNI Disposition Case management to help with discharge planning Admission and Anticipated Discharge Date Admission Date: August 27, 2021 Subjective Patient is seen and examined at bedside Evaluated by orthotics for replacement of brace today Leg erythema improving No other complaints Denies any chest pain, shortness of breath, dizziness, nausea, abdominal pain, cough Saturating well on room air Review of Systems Review of Systems: All systems reviewed & are unremarkable except as noted in Subjective Physical Exam Physical Exam: Physical Exam: Vitals signs as noted above General Appearance:Obese, No apparent distress Head: normocephalic, Atraumatic Eyes: normal inspection, EOMI Neck: supple, Trachea midline Respiratory/Chest: Normal breath sounds, CTA, No accessory muscle use Cardiovascular: S1, S2, No murmur Abdomen/GI:Soft, Non tender, Bowel sounds present Extremities/Musculoskeletal:normal inspection, RLE erythema improved , warm, S/P toe amputation, L AKA Neurologic/Psych:AAOX3, grossly no focal neurological deficits Skin: normal color, warm Results & Data Results & Data ([facility]) Vital Signs (Past 12 Hours) Vital Signs Temp Pulse Resp BP Pulse Ox 09/01/21 15:38 36.6 C 81 16 115/73 97 09/01/21 08:29 36.5 C 76 16 131/79 93 Laboratory Results [facility] 09/01/21 12:10 Creatinine 1.26 H (1) Cellulitis Site of cellulitis: unspecified site Qualified Code(s): L03.90 - Cellulitis, unspecified
[2021-09-01] MEDS: DOLUTEGRAVIR SODIUM 50 MG TAB PO SCH (22:14)
[2021-09-01] MEDS: DESCOVY PO SCH (22:14)
[2021-09-01] MEDS: ENOXAPARIN INJ 40 MG/0.4 ML SYR SQ SCH (22:15)
[2021-09-02] MEDS: risperiDONE 0.5 MG TABLET PO SCH ×3 (06:00→21:58)
[2021-09-02] MEDS: clonazePAM 0.5 MG TAB PO SCH ×2 (08:54→21:57)
[2021-09-02] MEDS: CHOLECALCIFEROL 1,000 UNITS 25 MCG TAB PO SCH (08:54)
[2021-09-02] MEDS: busPIRone 5 MG TAB PO SCH ×2 (08:54→21:58)
[2021-09-02] MEDS: FAMOTIDINE 20 MG TAB PO SCH ×2 (08:54→21:57)
[2021-09-02] MEDS: CYANOCOBALAMIN (B-12) 500 MCG TABLET PO SCH (08:54)
[2021-09-02] MEDS: MULTIVITAMIN TAB PO SCH (08:54)
[2021-09-02] MEDS: ASPIRIN 81 MG CHEW PO SCH (08:54)
[2021-09-02] MEDS: LIDOCAINE 5% 1 PATCH TD SCH (08:55)
[2021-09-02] MEDS: ALFUZOSIN HCL 10 MG TAB PO SCH (08:55)
[2021-09-02] MEDS: ENOXAPARIN INJ 40 MG/0.4 ML SYR SQ SCH ×2 (08:55→21:59)
[2021-09-02] MEDS: fluvoxaMINE MALEATE 50 MG TAB PO SCH ×2 (08:55→21:58)
[2021-09-02] MEDS: INSULIN ASPART PER UNIT SC SCH ×4 (09:05→20:50)
[2021-09-02] MEDS: INSULIN GLARGINE SOLOSTAR 100 UNITS/ML 3 ML PEN SC SCH (09:05)
[2021-09-02] MEDS: EUCERIN CR 120 GM JAR EXT SCH ×2 (09:11→21:58)
[2021-09-02] MEDS: ACETAMINOPHEN 325 MG TAB PO PRN ×2 (09:11→21:57)
[2021-09-02 09:37] LABS: Creatinine Clr Calc Pharmacy 51.3 ml/min; Est GFR (African American) 47.5 ml/min
--- NOTE | 2021-09-02 16:43 | Hospitalist Progress Note ---
Date of Service September 02, 2021 Assessment & Plan (1) Cellulitis: Plan: Patient is a 60 yr female with H/O Insulin-dependent DM II, CKD III, chronic anemia, HIV, history left AKA, depression, anxiety, history of self excoriation, history of MRSA, obesity presented to ER with complaint of right leg redness and was started on outpatient doxycycline on 08/20/21. No improvement of erythema or warmth Right Lower Extremity Cellulitis --Venous Doppler RLE negative for DVT --Right Knee X ray:No acute fracture. No significant change in appearance of the right knee with severe tricompartmental osteoarthritis. Blood Cultures:No growth to date Continue Daptomycin for now Consulted Orthotics to replace RLE Brace No signs of sepsis Needs rehab placement once brace arranged Clinically improving Waiting for brace to be arranged and for placement COVID-19 Infection Patient reports positive COVID-19 testing approximately 3 weeks ago Isolation precautions Monitor Saturating well on room air Asymptomatic DM II A1c: 7.0 on 05/07/2021 Continue home basal insulin NovoLog sliding scale per protocol CKD III Baseline Cr 1.3-1.4 Cr at baseline Monitor renal functions Avoid nephrotoxic agents when possible Cr 1.4 today HIV Continue descovy timayra Chronic anemia Hgb at baseline Depression/anxiety Continue home meds DVT Prophylaxis Lovenox SQ Code Status DNR/DNI Disposition Case management to help with discharge planning Admission and Anticipated Discharge Date Admission Date: August 27, 2021 Subjective Patient is seen and examined at bedside No new complaints Doing well Denies any chest pain, shortness of breath, dizziness, nausea, abdominal pain, cough Saturating well on room air Waiting for Brace placement and placement Review of Systems Review of Systems: All systems reviewed & are unremarkable except as noted in Subjective Physical Exam Physical Exam: Physical Exam: Vitals signs as noted above General Appearance:Obese, No apparent distress Head: normocephalic, Atraumatic Eyes: normal inspection, EOMI Neck: supple, Trachea midline Respiratory/Chest: Normal breath sounds, CTA, No accessory muscle use Cardiovascular: S1, S2, No murmur Abdomen/GI:Soft, Non tender, Bowel sounds present Extremities/Musculoskeletal:normal inspection, RLE erythema improved , warm, S/P toe amputation, L AKA Neurologic/Psych:AAOX3, grossly no focal neurological deficits Skin: normal color, warm Results & Data Results & Data ([facility]) Vital Signs (Past 12 Hours) Vital Signs Temp Pulse Resp BP Pulse Ox 09/02/21 08:34 36.6 C 82 16 119/80 96 Laboratory Results BMP 09/02/21 08:44 Creatinine 1.40 H (1) Cellulitis Site of cellulitis: unspecified site Qualified Code(s): L03.90 - Cellulitis, unspecified
[2021-09-02] MEDS: DAPTOmycin 300 MG in SYRINGE 0 ML IV SCH (18:12)
[2021-09-02] MEDS: DOLUTEGRAVIR SODIUM 50 MG TAB PO SCH (21:58)
[2021-09-02] MEDS: DESCOVY PO SCH (21:59)
[2021-09-03] MEDS: risperiDONE 0.5 MG TABLET PO SCH ×3 (06:13→21:57)
[2021-09-03 09:06] LABS: BUN Creatinine Ratio 15.9 (10-20); Calcium 8.7 mg/dl (8.5-10.1); Creatinine Clr Calc Pharmacy 54.4 ml/min; Est GFR (African American) 51.1 ml/min; Potassium 4.1 mmol/L (3.5-5.1)
[2021-09-03] MEDS: clonazePAM 0.5 MG TAB PO SCH ×2 (09:43→21:57)
[2021-09-03] MEDS: ENOXAPARIN INJ 40 MG/0.4 ML SYR SQ SCH ×2 (09:43→21:57)
[2021-09-03] MEDS: INSULIN GLARGINE SOLOSTAR 100 UNITS/ML 3 ML PEN SC SCH (09:45)
[2021-09-03] MEDS: busPIRone 5 MG TAB PO SCH ×2 (09:45→21:58)
[2021-09-03] MEDS: INSULIN ASPART PER UNIT SC SCH ×4 (09:45→21:20)
[2021-09-03] MEDS: EUCERIN CR 120 GM JAR EXT SCH ×2 (09:46→21:58)
[2021-09-03] MEDS: CHOLECALCIFEROL 1,000 UNITS 25 MCG TAB PO SCH (09:46)
[2021-09-03] MEDS: ALFUZOSIN HCL 10 MG TAB PO SCH (09:46)
[2021-09-03] MEDS: ASPIRIN 81 MG CHEW PO SCH (09:46)
[2021-09-03] MEDS: CYANOCOBALAMIN (B-12) 500 MCG TABLET PO SCH (09:46)
[2021-09-03] MEDS: FAMOTIDINE 20 MG TAB PO SCH ×2 (09:46→21:58)
[2021-09-03] MEDS: fluvoxaMINE MALEATE 50 MG TAB PO SCH ×2 (09:46→21:58)
[2021-09-03] MEDS: MULTIVITAMIN TAB PO SCH (09:46)
[2021-09-03] MEDS: ACETAMINOPHEN 325 MG TAB PO PRN ×2 (09:47→21:57)
[2021-09-03] MEDS: LIDOCAINE 5% 1 PATCH TD SCH (09:47)
[2021-09-03] MEDS: NYSTATIN POWDER 15GM BTL EXT SCH ×2 (13:28→21:59)
--- NOTE | 2021-09-03 17:38 | Hospitalist Progress Note ---
Date of Service September 03, 2021 Assessment & Plan (1) Cellulitis: Plan: per Dr. Randall's notes with addendum: Patient is a 60 yr female with H/O Insulin-dependent DM II, CKD III, chronic anemia, HIV, history left AKA, depression, anxiety, history of self excoriation, history of MRSA, obesity presented to ER with complaint of right leg redness and was started on outpatient doxycycline on 08/20/21. No improvement of erythema or warmth Right Lower Extremity Cellulitis --Venous Doppler RLE negative for DVT --Right Knee X ray:No acute fracture. No significant change in appearance of the right knee with severe tricompartmental osteoarthritis. Blood Cultures:No growth to date Continue Daptomycin for now Consulted Orthotics to replace RLE Brace No signs of sepsis Needs rehab placement once brace arranged Clinically improving Waiting for brace to be arranged and for placement 09/03 Afebrile Pain over the right knee about the same Continue IV daptomycin Awaiting for new leg brace before transitioning to rehab COVID-19 Infection Patient reports positive COVID-19 testing approximately 3 weeks ago Isolation precautions Monitor Saturating well on room air Asymptomatic Respiratory status stable No changes DM II A1c: 7.0 on 05/07/2021 Continue home basal insulin NovoLog sliding scale per protocol CKD III Baseline Cr 1.3-1.4 Cr at baseline Monitor renal functions Avoid nephrotoxic agents when possible Cr 1.3 today HIV Continue agustin hernandez Chronic anemia Hgb at baseline Depression/anxiety Continue home meds DVT Prophylaxis Lovenox SQ Code Status DNR/DNI Disposition Case management to help with discharge planning Admission and Anticipated Discharge Date Admission Date: August 27, 2021 Subjective Follow-up for right leg cellulitis, etc. Seen sitting up in bed, in good spirits, not in distress States that she feels fine overall Has some pain on the right knee region , about the same as yesterday No fevers or chills Denies shortness of breath, chest pain, palpitations, dizziness No other symptoms Review of Systems Review of Systems: all noted and negative except for above Physical Exam Physical Exam: General- oriented x 3, not in distress, speaks in sentences with no effort or accessory muscle use Eyes- anicteric Neck- no JVD Lungs- clear breath sounds bilaterally, no rales/wheezes Heart- normal rate, regular rhythm; no murmurs Abdomen- normal bowel sounds, nondistended, soft, nontender Extremities- no pretibial edema, no calf tenderness Right distal thigh/knee, mild edema, mild erythema, Neuro- alert, oriented x 3; no gross focal neurologic deficits Skin- warm & dry Results & Data Results & Data ([facility]) Vital Signs (Past 12 Hours) Vital Signs Temp Pulse Resp BP Pulse Ox 09/03/21 16:31 36.7 C 86 20 109/72 94 09/03/21 08:46 36.7 C 78 18 105/71 94 09/03/21 06:13 36.5 C 77 18 133/82 97 (1) Cellulitis Site of cellulitis: unspecified site Qualified Code(s): L03.90 - Cellulitis, unspecified
[2021-09-03] MEDS: DAPTOmycin 300 MG in SYRINGE 0 ML IV SCH (18:15)
[2021-09-03] MEDS: DOLUTEGRAVIR SODIUM 50 MG TAB PO SCH (21:58)
[2021-09-03] MEDS: DESCOVY PO SCH (21:59)
[2021-09-04] MEDS: risperiDONE 0.5 MG TABLET PO SCH ×3 (06:21→22:14)
[2021-09-04] MEDS: INSULIN ASPART PER UNIT SC SCH ×4 (09:29→22:15)
[2021-09-04] MEDS: ASPIRIN 81 MG CHEW PO SCH (09:41)
[2021-09-04] MEDS: clonazePAM 0.5 MG TAB PO SCH ×2 (09:41→22:15)
[2021-09-04] MEDS: CYANOCOBALAMIN (B-12) 500 MCG TABLET PO SCH (09:42)
[2021-09-04] MEDS: CHOLECALCIFEROL 1,000 UNITS 25 MCG TAB PO SCH (09:42)
[2021-09-04] MEDS: busPIRone 5 MG TAB PO SCH ×2 (09:42→22:14)
[2021-09-04] MEDS: ENOXAPARIN INJ 40 MG/0.4 ML SYR SQ SCH ×2 (09:43→22:12)
[2021-09-04] MEDS: FAMOTIDINE 20 MG TAB PO SCH ×2 (09:44→22:14)
[2021-09-04] MEDS: fluvoxaMINE MALEATE 50 MG TAB PO SCH ×2 (09:44→22:11)
[2021-09-04] MEDS: EUCERIN CR 120 GM JAR EXT SCH ×2 (09:44→22:11)
[2021-09-04] MEDS: LIDOCAINE 5% 1 PATCH TD SCH (09:45)
[2021-09-04] MEDS: MULTIVITAMIN TAB PO SCH (09:46)
[2021-09-04] MEDS: NYSTATIN POWDER 15GM BTL EXT SCH ×2 (09:47→22:11)
[2021-09-04] MEDS: INSULIN GLARGINE SOLOSTAR 100 UNITS/ML 3 ML PEN SC SCH (10:11)
[2021-09-04] MEDS: ACETAMINOPHEN 325 MG TAB PO PRN ×2 (10:21→22:14)
[2021-09-04] MEDS: ALFUZOSIN HCL 10 MG TAB PO SCH (10:23)
--- NOTE | 2021-09-04 19:42 | Hospitalist Progress Note ---
Date of Service September 04, 2021 Assessment & Plan (1) Cellulitis: Plan: per Dr. Randall's notes with addendum: Patient is a 60 yr female with H/O Insulin-dependent DM II, CKD III, chronic anemia, HIV, history left AKA, depression, anxiety, history of self excoriation, history of MRSA, obesity presented to ER with complaint of right leg redness and was started on outpatient doxycycline on 08/20/21. No improvement of erythema or warmth Right Lower Extremity Cellulitis --Venous Doppler RLE negative for DVT --Right Knee X ray:No acute fracture. No significant change in appearance of the right knee with severe tricompartmental osteoarthritis. Blood Cultures:No growth to date Continue Daptomycin for now Consulted Orthotics to replace RLE Brace No signs of sepsis Needs rehab placement once brace arranged Clinically improving Waiting for brace to be arranged and for placement 09/04 Afebrile Pain over the right knee improving Continue IV daptomycin for today Awaiting for new leg brace before transitioning to rehab COVID-19 Infection Patient reports positive COVID-19 testing approximately 3 weeks ago Isolation precautions Monitor Saturating well on room air Asymptomatic 09/04 Respiratory status stable No changes DM II A1c: 7.0 on 05/07/2021 Continue home basal insulin NovoLog sliding scale per protocol CKD III Baseline Cr 1.3-1.4 Cr at baseline Monitor renal functions Avoid nephrotoxic agents when possible Cr 1.3 today HIV Continue agustin hernandez Chronic anemia Hgb at baseline Depression/anxiety Continue home meds DVT Prophylaxis Lovenox SQ Code Status DNR/DNI Disposition Case management to help with discharge planning Admission and Anticipated Discharge Date Admission Date: August 27, 2021 Subjective Follow-up for cellulitis, etc. Resting in bed, sitting up, in good spirits States she feels fine overall Minimal pain over the right knee No other new symptom Review of Systems Review of Systems: all noted and negative except for above Physical Exam Physical Exam: General- oriented x 3, not in distress, speaks in sentences with no effort or accessory muscle use Eyes- anicteric Neck- no JVD Lungs- clear breath sounds bilaterally, no rales/wheezes Heart- normal rate, regular rhythm; no murmurs Abdomen- normal bowel sounds, nondistended, soft, nontender Extremities-right knee: Minimal edema, minimal erythema, very mild warmth No tenderness Neuro- alert, oriented x 3; no gross focal neurologic deficits Skin- warm & dry Results & Data Results & Data ([facility]) Vital Signs (Past 12 Hours) Vital Signs Temp Pulse Resp BP BP Pulse Ox 09/04/21 14:09 37 C 85 16 103/69 95 09/04/21 08:45 36.8 C 84 20 101/69 93 all noted and reviewed including below (1) Cellulitis Site of cellulitis: unspecified site Qualified Code(s): L03.90 - Cellulitis, unspecified
[2021-09-04] MEDS: DESCOVY PO SCH (22:13)
[2021-09-04] MEDS: DOLUTEGRAVIR SODIUM 50 MG TAB PO SCH (22:15)
[2021-09-05] MEDS: risperiDONE 0.5 MG TABLET PO SCH ×3 (05:52→20:34)
[2021-09-05] MEDS: INSULIN ASPART PER UNIT SC SCH ×4 (09:41→20:48)
[2021-09-05] MEDS: ACETAMINOPHEN 325 MG TAB PO PRN ×2 (09:47→20:42)
[2021-09-05] MEDS: clonazePAM 0.5 MG TAB PO SCH ×2 (09:47→20:39)
[2021-09-05] MEDS: ENOXAPARIN INJ 40 MG/0.4 ML SYR SQ SCH ×2 (09:49→20:35)
[2021-09-05] MEDS: ALFUZOSIN HCL 10 MG TAB PO SCH (09:51)
[2021-09-05] MEDS: ASPIRIN 81 MG CHEW PO SCH (09:52)
[2021-09-05] MEDS: CHOLECALCIFEROL 1,000 UNITS 25 MCG TAB PO SCH (09:53)
[2021-09-05] MEDS: CYANOCOBALAMIN (B-12) 500 MCG TABLET PO SCH (09:53)
[2021-09-05] MEDS: EUCERIN CR 120 GM JAR EXT SCH ×2 (09:54→20:36)
[2021-09-05] MEDS: FAMOTIDINE 20 MG TAB PO SCH ×2 (09:54→20:38)
[2021-09-05] MEDS: busPIRone 5 MG TAB PO SCH ×2 (09:54→20:39)
[2021-09-05] MEDS: fluvoxaMINE MALEATE 50 MG TAB PO SCH ×2 (09:55→20:38)
[2021-09-05] MEDS: LIDOCAINE 5% 1 PATCH TD SCH (09:55)
[2021-09-05] MEDS: NYSTATIN POWDER 15GM BTL EXT SCH ×2 (09:56→20:36)
[2021-09-05] MEDS: MULTIVITAMIN TAB PO SCH (09:56)
[2021-09-05] MEDS: INSULIN GLARGINE SOLOSTAR 100 UNITS/ML 3 ML PEN SC SCH (10:37)
[2021-09-05 11:18] LABS: Creatinine Clr Calc Pharmacy 52.1 ml/min; Est GFR (African American) 48.4 ml/min; Est GFR (Non-African American) 41.7 ml/min
--- NOTE | 2021-09-05 20:15 | Hospitalist Progress Note ---
Date of Service September 05, 2021 Assessment & Plan (1) Cellulitis: Plan: per Dr. Randall's notes with addendum: Patient is a 60 yr female with H/O Insulin-dependent DM II, CKD III, chronic anemia, HIV, history left AKA, depression, anxiety, history of self excoriation, history of MRSA, obesity presented to ER with complaint of right leg redness and was started on outpatient doxycycline on 08/20/21. No improvement of erythema or warmth Right Lower Extremity Cellulitis --Venous Doppler RLE negative for DVT --Right Knee X ray:No acute fracture. No significant change in appearance of the right knee with severe tricompartmental osteoarthritis. Blood Cultures:No growth to date Continue Daptomycin for now Consulted Orthotics to replace RLE Brace No signs of sepsis Needs rehab placement once brace arranged Clinically improving Waiting for brace to be arranged and for placement 09/04 Afebrile Pain over the right knee improving Continue IV daptomycin for today Awaiting for new leg brace before transitioning to rehab COVID-19 Infection Patient reports positive COVID-19 testing approximately 3 weeks ago Isolation precautions Monitor Saturating well on room air Asymptomatic 09/04 Respiratory status stable No changes DM II A1c: 7.0 on 05/07/2021 Continue home basal insulin NovoLog sliding scale per protocol CKD III Baseline Cr 1.3-1.4 Cr at baseline Monitor renal functions Avoid nephrotoxic agents when possible Cr 1.3 today HIV Continue descovy, tivicay Chronic anemia Hgb at baseline Depression/anxiety Continue home meds DVT Prophylaxis Lovenox SQ Code Status DNR/DNI Disposition Case management to help with discharge planning Admission and Anticipated Discharge Date Admission Date: August 27, 2021 Results & Data Results & Data ([facility]) Vital Signs (Past 12 Hours) Vital Signs Temp Pulse Resp BP Pulse Ox 09/05/21 16:30 36.9 C 75 18 133/79 96 (1) Cellulitis Site of cellulitis: unspecified site Qualified Code(s): L03.90 - Cellulitis, unspecified
[2021-09-05] MEDS: DOLUTEGRAVIR SODIUM 50 MG TAB PO SCH (20:34)
[2021-09-05] MEDS: DESCOVY PO SCH (20:37)
[2021-09-06] MEDS: ACETAMINOPHEN 325 MG TAB PO PRN ×3 (06:13→20:33)
[2021-09-06] MEDS: risperiDONE 0.5 MG TABLET PO SCH ×3 (06:14→21:28)
[2021-09-06] MEDS: ENOXAPARIN INJ 40 MG/0.4 ML SYR SQ SCH ×2 (09:16→20:03)
[2021-09-06] MEDS: MULTIVITAMIN TAB PO SCH (09:16)
[2021-09-06] MEDS: FAMOTIDINE 20 MG TAB PO SCH ×2 (09:17→20:05)
[2021-09-06] MEDS: fluvoxaMINE MALEATE 50 MG TAB PO SCH ×2 (09:17→20:05)
[2021-09-06] MEDS: CHOLECALCIFEROL 1,000 UNITS 25 MCG TAB PO SCH (09:18)
[2021-09-06] MEDS: busPIRone 5 MG TAB PO SCH ×2 (09:18→20:05)
[2021-09-06] MEDS: CYANOCOBALAMIN (B-12) 500 MCG TABLET PO SCH (09:18)
[2021-09-06] MEDS: ASPIRIN 81 MG CHEW PO SCH (09:19)
[2021-09-06] MEDS: ALFUZOSIN HCL 10 MG TAB PO SCH (09:19)
[2021-09-06] MEDS: clonazePAM 0.5 MG TAB PO SCH ×2 (09:20→20:03)
[2021-09-06] MEDS: EUCERIN CR 120 GM JAR EXT SCH ×2 (09:20→20:06)
[2021-09-06] MEDS: NYSTATIN POWDER 15GM BTL EXT SCH ×2 (09:21→20:06)
[2021-09-06] MEDS: LIDOCAINE 5% 1 PATCH TD SCH (09:21)
[2021-09-06] MEDS: INSULIN ASPART PER UNIT SC SCH ×4 (09:37→21:18)
[2021-09-06] MEDS: INSULIN GLARGINE SOLOSTAR 100 UNITS/ML 3 ML PEN SC SCH (09:37)
[2021-09-06] MEDS: DOLUTEGRAVIR SODIUM 50 MG TAB PO SCH (20:04)
--- NOTE | 2021-09-06 20:05 | Hospitalist Progress Note ---
Date of Service September 06, 2021 Assessment & Plan (1) Cellulitis: Plan: per Dr. Randall's notes with addendum: Patient is a 60 yr female with H/O Insulin-dependent DM II, CKD III, chronic anemia, HIV, history left AKA, depression, anxiety, history of self excoriation, history of MRSA, obesity presented to ER with complaint of right leg redness and was started on outpatient doxycycline on 08/20/21. No improvement of erythema or warmth Right Lower Extremity Cellulitis --Venous Doppler RLE negative for DVT --Right Knee X ray:No acute fracture. No significant change in appearance of the right knee with severe tricompartmental osteoarthritis. Blood Cultures:No growth to date Continue Daptomycin for now Consulted Orthotics to replace RLE Brace No signs of sepsis Needs rehab placement once brace arranged Clinically improving Waiting for brace to be arranged and for placement 09/04 Afebrile Pain over the right knee improving Continue IV daptomycin for today Awaiting for new leg brace before transitioning to rehab COVID-19 Infection Patient reports positive COVID-19 testing approximately 3 weeks ago Isolation precautions Monitor Saturating well on room air Asymptomatic 09/04 Respiratory status stable No changes DM II A1c: 7.0 on 05/07/2021 Continue home basal insulin NovoLog sliding scale per protocol CKD III Baseline Cr 1.3-1.4 Cr at baseline Monitor renal functions Avoid nephrotoxic agents when possible Cr 1.3 today HIV Continue descovy, tivicay Chronic anemia Hgb at baseline Depression/anxiety Continue home meds DVT Prophylaxis Lovenox SQ Code Status DNR/DNI Disposition Case management to help with discharge planning Admission and Anticipated Discharge Date Admission Date: August 27, 2021 Results & Data Results & Data ([facility]) Vital Signs (Past 12 Hours) Vital Signs Temp Pulse Resp BP Pulse Ox 09/06/21 09:09 36.8 C 76 16 113/78 97 (1) Cellulitis Site of cellulitis: unspecified site Qualified Code(s): L03.90 - Cellulitis, unspecified
[2021-09-06] MEDS: DESCOVY PO SCH (20:06)
[2021-09-07] MEDS: risperiDONE 0.5 MG TABLET PO SCH ×3 (06:00→21:09)
[2021-09-07] MEDS: ACETAMINOPHEN 325 MG TAB PO PRN ×3 (07:30→20:51)
[2021-09-07] MEDS: ASPIRIN 81 MG CHEW PO SCH (08:17)
[2021-09-07] MEDS: ENOXAPARIN INJ 40 MG/0.4 ML SYR SQ SCH ×2 (08:19→20:53)
[2021-09-07] MEDS: FAMOTIDINE 20 MG TAB PO SCH ×2 (08:20→20:54)
[2021-09-07] MEDS: CHOLECALCIFEROL 1,000 UNITS 25 MCG TAB PO SCH (08:20)
[2021-09-07] MEDS: CYANOCOBALAMIN (B-12) 500 MCG TABLET PO SCH (08:20)
[2021-09-07] MEDS: fluvoxaMINE MALEATE 50 MG TAB PO SCH ×2 (08:20→20:56)
[2021-09-07] MEDS: clonazePAM 0.5 MG TAB PO SCH ×2 (08:20→20:51)
[2021-09-07] MEDS: ALFUZOSIN HCL 10 MG TAB PO SCH (08:20)
[2021-09-07] MEDS: EUCERIN CR 120 GM JAR EXT SCH ×2 (08:20→20:54)
[2021-09-07] MEDS: LIDOCAINE 5% 1 PATCH TD SCH (08:20)
[2021-09-07] MEDS: MULTIVITAMIN TAB PO SCH (08:20)
[2021-09-07] MEDS: busPIRone 5 MG TAB PO SCH ×2 (08:20→20:52)
[2021-09-07] MEDS: NYSTATIN POWDER 15GM BTL EXT SCH ×2 (08:21→20:55)
[2021-09-07] MEDS: INSULIN GLARGINE SOLOSTAR 100 UNITS/ML 3 ML PEN SC SCH (08:33)
[2021-09-07] MEDS: INSULIN ASPART PER UNIT SC SCH ×4 (08:34→21:03)
--- NOTE | 2021-09-07 19:25 | Hospitalist Progress Note ---
Date of Service September 07, 2021 Assessment & Plan (1) Cellulitis: Plan: per Dr. Randall's notes with addendum: Patient is a 60 yr female with H/O Insulin-dependent DM II, CKD III, chronic anemia, HIV, history left AKA, depression, anxiety, history of self excoriation, history of MRSA, obesity presented to ER with complaint of right leg redness and was started on outpatient doxycycline on 08/20/21. No improvement of erythema or warmth Right Lower Extremity Cellulitis --Venous Doppler RLE negative for DVT --Right Knee X ray:No acute fracture. No significant change in appearance of the right knee with severe tricompartmental osteoarthritis. Blood Cultures:No growth to date Continue Daptomycin for now Consulted Orthotics to replace RLE Brace No signs of sepsis Needs rehab placement once brace arranged Clinically improving Waiting for brace to be arranged and for placement 09/07 Afebrile Pain over the right knee improving Completed course of IV daptomycin x7 days Tolerating new knee brace very well Awaiting to transition to rehab when accepted COVID-19 Infection Patient reports positive COVID-19 testing approximately 3 weeks ago Isolation precautions Monitor Saturating well on room air Asymptomatic 09/07 Respiratory status stable No cough COVID isolation removed DM II A1c: 7.0 on 05/07/2021 Continue home basal insulin NovoLog sliding scale per protocol CKD III Baseline Cr 1.3-1.4 Cr at baseline Monitor renal functions Avoid nephrotoxic agents when possible Cr 1.3 today HIV Continue descovy, tivicay Chronic anemia Hgb at baseline Depression/anxiety Continue home meds DVT Prophylaxis Lovenox SQ Code Status DNR/DNI Disposition Awaiting acceptance to inpatient rehab Admission and Anticipated Discharge Date Admission Date: August 27, 2021 Subjective Follow-up for right knee cellulitis, COVID-19 infection, etc. Sitting up in bed, comfortable, in good spirits Smiling States she feels fine overall Has chronic right knee pain, relieved with as needed analgesic Denies cough, shortness of breath No other symptoms Review of Systems Review of Systems: all noted and negative except for above Physical Exam Physical Exam: General- oriented x 3, not in distress, speaks in sentences with no effort or accessory muscle use Eyes- anicteric Neck- no JVD Lungs- clear BS bilaterally Heart- normal rate, regular rhythm; no murmurs Abdomen- normal bowel sounds, nondistended, soft, nontender Extremities-right knee, no edema, surrounding erythema on the distal thigh about the same No tenderness Neuro- alert, oriented x 3; no gross focal neurologic deficits Skin- warm & dry Results & Data Results & Data ([facility]) Vital Signs (Past 12 Hours) Vital Signs Temp Pulse Resp BP Pulse Ox 09/07/21 14:45 37.3 C 71 16 105/70 96 (1) Cellulitis Site of cellulitis: unspecified site Qualified Code(s): L03.90 - Cellulitis, unspecified
[2021-09-07] MEDS: DOLUTEGRAVIR SODIUM 50 MG TAB PO SCH (20:53)
[2021-09-07] MEDS: DESCOVY PO SCH (20:54)
[2021-09-08] MEDS: risperiDONE 0.5 MG TABLET PO SCH ×2 (05:46→12:52)
[2021-09-08] MEDS: ALFUZOSIN HCL 10 MG TAB PO SCH (07:36)
[2021-09-08] MEDS: MULTIVITAMIN TAB PO SCH (07:36)
[2021-09-08] MEDS: CYANOCOBALAMIN (B-12) 500 MCG TABLET PO SCH (07:37)
[2021-09-08] MEDS: CHOLECALCIFEROL 1,000 UNITS 25 MCG TAB PO SCH (07:37)
[2021-09-08] MEDS: FAMOTIDINE 20 MG TAB PO SCH (07:37)
[2021-09-08] MEDS: ASPIRIN 81 MG CHEW PO SCH (07:37)
[2021-09-08] MEDS: busPIRone 5 MG TAB PO SCH (07:37)
[2021-09-08] MEDS: fluvoxaMINE MALEATE 50 MG TAB PO SCH (07:38)
[2021-09-08] MEDS: LIDOCAINE 5% 1 PATCH TD SCH (07:39)
[2021-09-08] MEDS: ENOXAPARIN INJ 40 MG/0.4 ML SYR SQ SCH (07:39)
[2021-09-08] MEDS: EUCERIN CR 120 GM JAR EXT SCH (07:39)
[2021-09-08] MEDS: NYSTATIN POWDER 15GM BTL EXT SCH (07:40)
[2021-09-08] MEDS: clonazePAM 0.5 MG TAB PO SCH (07:52)
[2021-09-08] MEDS: ACETAMINOPHEN 325 MG TAB PO PRN ×2 (07:52→12:56)
[2021-09-08] MEDS: INSULIN GLARGINE SOLOSTAR 100 UNITS/ML 3 ML PEN SC SCH (08:39)
[2021-09-08] MEDS: INSULIN ASPART PER UNIT SC SCH ×2 (08:41→12:52)
[2021-09-08 09:55] LABS: Creatinine Clr Calc Pharmacy 50.2 ml/min; Est GFR (African American) 46.3 ml/min
--- NOTE | 2021-09-08 13:08 | Discharge Summary ---
Date of Service September 08, 2021 Admission HPI Per Admitting Provider Patient is 60 y/o F with PMH insulin-dependent DM II, CKD III, chronic anemia, HIV, history left AKA, depression, anxiety, history of self excoriation, history of MRSA, obesity presented to ER with complaint of right leg redness. Patient reports noted leg redness to right distal thigh that spread distantly to lower leg. She had telemedicine visit with PCP 08/20/2021 and was started on doxycycline for 7 days. Patient reports thought had some initial improvement to redness to right thigh area however remaining leg appears more red. She reports area feels tender to right lower leg. Reports chronic right knee pain and denies any increased pain. Patient admits that she scratches at leg frequently. She reports using a brace to right knee and since onset of redness has been trying to avoid wearing brace at rest. She states she noticed some clear color discharge from area. Denies any other known injury or trauma. Denies fever/chills, diaphoresis, N/V/D/C, SCOTT, dizziness, syncope, vision changes, neck pain, CP, SOB, orthopnea, palpitations, cough, sore throat, choking, otalgia, rhinorrhea, abdominal pain, paresthesias, weakness, extremity weakness, extremity edema, other rashes, urinary symptoms. Admission Exam Per Admitting Provider General: no distress, obese Head: normocephalic, atraumatic Eyes: PERRL, EOM's intact, conjunctiva non-injected, anicteric ENT: normal inspection external ears, nose, mucous membranes moist Neck: supple, trachea midline Lungs: clear, no respiratory distress, no wheezing/rhonchi/rales CV: RRR, no pretibial edema Abd: protuberant, normal BS, soft, non-tender Ext: LLE: +AKA, RLE: +amputation of all toes, right distal thigh warmth and erythema extending to distal lower leg, medial aspect of knee with severe excoriations, no area of fluctuance, no active drainage noted Neuro: A&O x 3, no focal deficits noted, normal affect Skin: warm, dry Principal Diagnosis RIGHT LOWER EXTREMITY CELLULITIS Discharge Exam General- oriented x 3, not in distress, speaks in sentences with no effort or accessory muscle use Eyes- anicteric Neck- no JVD Lungs- clear breath sounds bilaterally, no rales/wheezes Heart- normal rate, regular rhythm; no murmurs Abdomen- normal bowel sounds, nondistended, soft, nontender Extremities- RLE: mild erythema around distal aspect of right thigh no knee edema/erythema/warmth/tenderness LLE: essentially normal no pretibial edema, no calf tenderness Neuro- alert, oriented x 3; no gross focal neurologic deficits Skin- warm & dry Discharge Data Allergies Allergy/AdvReac Type Severity Reaction Status Date / Time amoxicillin [From Augmentin] Allergy Severe MERLE Verified 08/27/21 20:23 SYNDROME clams Allergy Severe HIVES Verified 08/27/21 20:23 clavulanic acid Allergy Severe MERLE Verified 08/27/21 20:23 [From Augmentin] SYNDROME ceftriaxone Allergy Intermediate HIVES, Rash Verified 08/27/21 20:23 levofloxacin Allergy Intermediate Hives Verified 08/27/21 20:23 Penicillins Allergy Intermediate CHILLS/RYAN Verified 08/27/21 20:23 RS rosiglitazone [From Avandia] Allergy Intermediate Hives Verified 08/27/21 20:23 vancomycin AdvReac Mild RED MAN Verified 08/27/21 20:23 SYNDROME Consultations 08/27/21 18:16 ED Decision to Admit Stat Ordered Studies 08/27/21 18:53 US venous doppler LE RT Urgent TECHNIQUE: Sonography of the deep venous system of the right lower extremity was performed. Compression and augmentation were evaluated. FINDINGS: This exam was compromised by suboptimal penetration. The right common femoral, superficial femoral and popliteal veins were compressible. Augmentation was normal. Flow was shown within the deep calf vessels. IMPRESSION: Technique difficult exam but no evidence of deep venous thrombus within the right lower extremity. ACT 112: Negative or not required by law. Electronically signed by: Valentino Beckman M.D. 08/27/2021 7:37 PM Hospital Course (1) Cellulitis: per Dr. Randall's notes with addendum: Patient is a 60 yr female with H/O Insulin-dependent DM II, CKD III, chronic anemia, HIV, history left AKA, depression, anxiety, history of self excoriation, history of MRSA, obesity presented to ER with complaint of right leg redness and was started on outpatient doxycycline on 08/20/21. No improvement of erythema or warmth Right Lower Extremity Cellulitis --Venous Doppler RLE negative for DVT --Right Knee X ray:No acute fracture. No significant change in appearance of the right knee with severe tricompartmental osteoarthritis. Blood Cultures:No growth to date No signs of sepsis Afebrile Pain over the right knee improving Completed course of IV daptomycin x7 days Consulted Orthotics to replace RLE Brace as old brace causing pain, irritation with contact Tolerating new knee brace very well Awaiting to transition to rehab when accepted continue PT/OT evaluation COVID-19 Infection Patient reports positive COVID-19 testing approximately 3 weeks ago 09/08 Respiratory status has remained stable no hypoxia No cough COVID isolation removed DM II A1c: 7.0 on 05/07/2021 continue usual insulin regimen and metformin CKD III Baseline Cr 1.3-1.4 Cr at baseline Monitor renal functions Avoid nephrotoxic agents HIV Continue descovy, tivicay Chronic anemia Hgb at baseline Depression/anxiety Continue home meds DVT Prophylaxis given Lovenox SQ encourage to ambulate frequently Code Status DNR/DNI Disposition transition to Rehab ff up with PCP in 1 week Total Time Total Time Spent Total Time Spent (In Minutes): >30 minutes Discharge Plan Discharge Items Patient Disposition: Transfer Inpatient Rehab Fac Reason For Visit: CELLULITIS Discharge Diagnosis: RIGHT LOWER EXTREMITY CELLULITIS Activity: As commented below Activity Comment: CONTINUE WITH PT AND OT Non-emergency contact: Primary Care Provider Call non-emergency contact if: you have any medication questions, your symptoms worsen, your pain is not controlled, your pain is worsening, your pain is unusual for you, your pain is concerning for you and you have a fever Follow-up/Referrals: Theron Springer, [Primary Care Provider] - Diet: Carb Consistent or DM2 and Heart Healthy Addtl Attending Provider Instructions: PLEASE REFER TO ACCOMPANYING HOSPITAL DISCHARGE SUMMARY FOR FURTHER DETAILS. Pending Studies at Discharge: No Stand-Alone Forms: My [facility] Skilled Items Patient informed of condition?: Yes DNR: No Discharge Level of Care: Acute rehab Communicable Disease: No Discharge Prognosis: Stable Lines: None Urinary Catheter: No Medications and DC Order Prescriptions: Continued Tivicay 50 mg tablet 50 mg PO HS RF: 0 Descovy 200-25 mg tablet 1 tab PO HS RF: 0 metformin 500 mg tablet 500 mg PO BIDM Qty: 60 RF: 0 acetaminophen [Tylenol] 325 mg Tablet 650 mg PO Q4H MDD 3 GRAMS/24 HOURS PRN (Reason: FEVER/PAIN) Qty: 30 RF: 0 clonazepam 0.5 mg tablet 0.5 mg PO BID Qty: 30 RF: 0 famotidine 20 mg Tablet 20 mg PO BID Qty: 60 RF: 0 fluvoxamine 100 mg tablet 100 mg PO BID Qty: 60 RF: 0 buspirone 10 mg Tablet 20 mg PO BID Qty: 60 RF: 0 aspirin 81 mg Tablet,Chewable 81 mg PO DAILY Qty: 30 RF: 0 risperidone 0.5 mg tablet 0.5 mg PO Q8 Qty: 90 RF: 0 alfuzosin 10 mg tablet extended release 24 hr 10 mg PO DAILY Qty: 30 RF: 0 multivitamin with folic acid [Daily-Jefferson (with folic acid)] 400 mcg tablet 1 tab PO DAILY Qty: 30 RF: 0 guaifenesin [Mucinex] 600 mg Tablet Extended Release 12hr 600 mg PO Q12H PRN (Reason: Congestion) Qty: 60 RF: 0 cyanocobalamin (vitamin B-12) 500 mcg Tablet, Sublingual 500 mcg SUBLINGUAL DAILY Qty: 30 RF: 0 insulin glargine [Basaglar KwikPen U-100 Insulin] 100 unit/mL (3 mL) insulin pen 15 unit SUBCUT QAM RF: 0 cholecalciferol (vitamin D3) 25 mcg (1,000 unit) Tablet 25 mcg PO QAM RF: 0 lidocaine 4 % Adhesive Patch,Medicated 1 patch TOPICAL QAM RF: 0 loperamide 2 mg Capsule 2 mg PO Q6H PRN (Reason: Diarrhea) RF: 0 insulin aspart U-100 [Novolog Flexpen U-100 Insulin] 100 unit/mL (3 mL) Insulin Pen 5 unit SUBCUT .BIDM &HS RF: 0 insulin aspart U-100 [Novolog Flexpen U-100 Insulin] 100 unit/mL (3 mL) Insulin Pen 0 unit SUBCUT .TIDM &HS RF: 0 Discontinued hydroxyzine HCl 50 mg tablet 50 mg PO Q8 Qty: 30 RF: 0 doxycycline hyclate 100 mg capsule 100 mg PO BID RF: 0 Discharge Orders: Discharge Order (Routine); Ordered 09/08/21 Ordered By: Bart Haque Admission Data Admit Date/Time: 08/27/21 18:57 Attending Provider: Bart Haque Admit Provider: Alek Ruiz Primary Care Provider: Theron Springer Other Providers: Alek Ruiz ; [facility] ; Benitez Randall ; [facility]
== END 2021-09-08 17:19 | DRG 602 ==
LOC: ED 14:23 → 3N 18:57 → SUATTDRO 18:57 → 3N 21:08

== ENCOUNTER 2024-12-23 19:22 | Observation (INO) ==
--- NOTE | 2024-12-23 19:40 | Emergency Department Note ---
Impression & Plan Sepsis, Falls, Complicated UTI (urinary tract infection), Closed right clavicular fracture, Hematoma of right parietal scalp, Right leg pain, Cellulitis of right foot ED Provider Note CHIEF COMPLAINT: Right leg pain HISTORY OF PRESENTING ILLNESS: This 64-year-old female patient presents to the emergency department via EMS from [facility] for evaluation of right leg pain. The patient had a fall 2 weeks ago injuring her right leg. No falls since that time. The patient has had multiple x-rays done at [facility], but they have been inconclusive per EMS. She has been taking oxycodone without improvement of her pain. She also has bruising to the right side of her forehead as well. The patient denies LOC at the time of the fall, but the patient states that she felt weird afterwards. She is not on any blood thinners. She is in a wheelchair and does not normally bear weight on her legs. 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 She has a suprapubic catheter in place. The patient states that she still hurts all over from the fall. REVIEW OF SYSTEMS: See HPI for pertinent positives and pertinent negatives. ALLERGIES: See below MEDICATIONS: See below PAST MEDICAL HISTORY: See below PHYSICAL EXAM: VITALS: Vitals are noted on the nurse's note and reviewed by myself. GENERAL: No acute distress, non-diaphoretic. SKIN: The patient has what appears to be a superficial wound to the right foot with surrounding erythema and edema. No obvious fluctuance, pointing, or discharge. The erythema is starting to go towards the ankle. The patient has old bruising to the right side of the forehead that is starting to go down the face with gravity. No lacerations requiring repair. Capillary reflex less than 2 seconds. HEAD: Normocephalic. No scalp tenderness or step-offs felt. EARS: Bilateral external auditory canals clear without tragus tenderness. Bilateral tympanic membranes pearly downey without erythema or effusion. No mastoid tenderness bilaterally. No hemotympanum. No sebastian sign. EYES: Pupils equal round and reactive to light and accommodation. Conjunctivae without injection, sclerae without icterus. Extraocular movements intact. No nystagmus. NOSE: Patent without discharge. No sinus tenderness. No septal hematoma or bleeding. FACE: No facial bone tenderness. Full range of motion of the jaw without tenderness. MOUTH: Mucous membranes moist. Pharynx without erythema or exudate. Uvula midline. Airway patent. Tongue does not deviate. NECK: Supple without nuchal rigidity. Cervical spine is nontender, but she does have bilateral trapezius muscle tenderness. HEART: Regular rate and rhythm without murmurs gallops or rubs. LUNGS: Clear to auscultation bilaterally without wheezes, rales or rhonchi. No retractions or accessory muscle use. CHEST: The patient is tender to palpation over the right anterior chest wall including over the right clavicle. No fracture crepitus or flail chest noted. ABDOMEN: Positive bowel sounds x 4. Normal tympanic percussion. Soft, nontender, without masses or organomegaly. No guarding or rebound tenderness. MUSCULOSKELETAL: No tenderness of the thoracic spine or paraspinal muscles. The patient is tender to palpation over the lumbar spine and bilateral paraspinal muscles. No tenderness with pelvic rocking. The patient has an [id number] amputation of the left lower extremity and a partial potation of the right foot. The patient is diffusely tender to palpation over the right lower extremity, but maximally tender to palpation over the right foot in the area of erythema and edema as above. No tenderness to palpation of the left lower extremity. No tenderness with pelvic rocking. No tenderness to palpation of the bilateral upper extremities. NEURO: Patient was alert and oriented to person place and time. Normal mental status exam. The patient has some decreased sensation, but states that it is at her baseline. No focal neurological deficits. DIFFERENTIAL DIAGNOSIS: Differential diagnosis includes cellulitis, abscess, MRSA infection, DVT, necrotizing fasciitis, dermatitis, drug eruption, allergic reaction, concussion, contusion, fracture, subluxation, dislocation, subdural hematoma, epidural hematoma, intraparenchymal hemorrhage, contusion, ligamentous injury, neurovascular, compartment syndrome, rhabdomyolysis, intra-abdominal injury, splenic rupture, hepatic rupture, rib fractures, cardiac contusion, pneumothorax, hemothorax, cardiac tamponade, intrathoracic injury, neurologic, as well as other pathologies. ED COURSE AND MEDICAL DECISION MAKING: HISTORY FROM INDEPENDENT HISTORIAN: Additional history obtained from EMS MEDICATIONS GIVEN: A total of 1.5 L normal saline solution bolus. Tylenol 1000 mg IV. Fentanyl 50 mcg IV. Zofran 4 mg IV. Daptomycin 500 mg IV. MONITOR: Continuous monitoring engineer: Order was placed for continuous monitoring engineer. Patient was placed on the monitoring engineer and continuous pulse ox. Patient was noted to be in sinus tachycardia at an initial rate of 105 bpm per my interpretation. EKG: EKG was interpreted by myself as normal sinus rhythm at 100 bpm with no acute [address] or T wave changes. INTERPRETATION OF LABS: I interpreted the labs with full lab results as below in the lab section of this note. Laboratory results pertinent to the emergent complaint are discussed in the MDM section below. The patient was advised to follow up with their PCP and/or specialist(s) for further outpatient monitoring and management of any abnormal results. INTERPRETATION OF IMAGING: Imaging studies were interpreted by myself and read by radiology as per the imaging section of this note. The patient was advised to follow up with their PCP and/or specialist(s) for further outpatient management of any non-emergent abnormal findings. X-rays of the right femur, right tib-fib, and right foot were negative for acute fracture or dislocation. CT scan of the head without contrast shows a new right frontal scalp hematoma, but no skull fracture. Mild cerebral atrophy and periventricular white matter low-density consistent with chronic small vessel disease and/or senescent changes. No acute large vessel infarct or intracranial hemorrhage is seen. CT scan of the cervical spine without contrast shows mild to moderate multilevel degenerative disc disease and facet arthrosis with no traumatic fracture or subluxation. Nondisplaced coronally oriented lucency through the osteophyte at the anterior inferior corner of the C3 vertebral body which is likely a new fracture since 2014, but appears to be chronic in nature since there is no associated soft tissue swelling. Mild multilevel spinal stenosis. CT scan of the chest with IV contrast shows an acute appearing fracture of the distal 2 cm of the right clavicle. There are moderate osteoarthritic changes of the right shoulder. No dislocation. 40% anterior wedge compression fracture of T12. There is a horizontal lucency remaining in the vertebral body as well as sclerosis. No surrounding soft tissue swelling seen. Consider subacute or nonhealed compression fracture. CT scan of the abdomen and pelvis with IV contrast shows the T2 compression fracture as above. No acute traumatic process noted. No other acute abnormality noted. CT scan of the lumbar spine with IV contrast shows a 30 to 40% anterior wedge compression fracture of T12 with horizontal lucency through the vertebral body and surrounding sclerosis. The configuration suggest subacute to chronic nonhealed compression fracture. No spinal stenosis. Previous multilevel instrumentation and fusion consisting of pedicle screws attached to posterior lateral johnny spanning fusion and laminectomy extending from L2-S1. The hardware is intact. No acute fracture or subluxation. CT scan of the foot with IV contrast shows no subcutaneous emphysema to suggest necrotizing fasciitis. No focal osteolysis to indicate osteomyelitis. Moderate narrowing and osteophytosis throughout the ankle joint and throughout the intertarsal joints consistent with osteoarthritis. No acute fracture or dislocation. Previous transmetatarsal amputation of the midfoot. CONSULTATIONS: ED pharmacist. On-call hospitalist. [facility] SUMMARY: I examined the patient. The patient apparently had a fall at [facility] 2 weeks ago. She has been complaining of continued right leg pain since the fall. Apparently [facility] has done multiple outpatient x-rays without obvious abnormalities. Due to her continued symptoms she was referred to the ER. The patient also has bruising to her right forehead and is having diffuse pain over her body per patient. On exam, the patient also has redness and swelling to the right foot with an apparent central lesion, but no obvious evidence of abscess. An IV lock was placed and labs were drawn. The patient was tachycardic on exam and she had the concerning finding for cellulitis of the right lower extremity. White blood cell count normal and procalcitonin normal, but lactate is elevated at 2.9. The patient was given a total of 1.5 L normal saline solution bolus based on her ideal body weight. Blood cultures were drawn. After discussion with the ED pharmacist, it was decided that IV daptomycin would be the best choice at this time and she was given IV daptomycin. The patient did have intermittent episodes of hypotension while in the ER. Repeat lactate improved to 1.5. The patient was medicated for her pain as above. Hemoglobin low at 11.8, but improved from her previous labs. Platelet count normal at 322. Coags were normal. Sodium 132 and glucose 108, but CMP otherwise normal. Magnesium normal. High-sensitivity troponin normal. Lipase normal. Urinalysis concerning for infection with culture pending. X-rays of the right femur, right tib-fib, and right foot were negative for acute fracture or dislocation. Due to the infected appearance of the right lower extremity as well as the elevated lactate, a CT scan of the right foot with IV contrast was obtained in addition to the other traumatic CT scans as above. No obvious evidence for osteomyelitis or necrotizing fasciitis. No fluid collection suggesting abscess. The patient's CT scans due to her pain from the previous fall were as above with multiple subacute to chronic findings, but it does appear that she has a new right clavicle fracture. I had a meaningful discussion about this patient with Dr. Cast who agrees with my assessment and the treatment plan. Due to the patient's right foot cellulitis, UTI with history of suprapubic catheter, and concerns for possible sepsis, it was felt the patient would benefit from admission. The patient also has the right clavicle fracture and frontal scalp hematoma from her fall. I spoke with the on-call hospitalist who agreed to admit the patient for further evaluation and treatment. Please refer to their dictation for further details. The patient's care was transferred in stable condition. DIAGNOSIS: Right foot cellulitis with ? sepsis UTI Right clavicle fracture Frontal scalp hematoma Right leg pain Fall Past Med/Surg History Problem List (Updated 12/24/24 @ 05:34 by Lynn Elena PA-C) Cellulitis of right foot (Acute) Right leg pain (Acute) Hematoma of right parietal scalp (Acute) Closed right clavicular fracture (Acute) Falls (Acute) Complicated UTI (urinary tract infection) (Acute) Urinary incontinence Cellulitis (Acute) Fungal infection (Acute) Acute knee pain (Acute) Right knee pain Severe sepsis Adenovirus infection (Acute) Bacteremia Sepsis (Acute) Immunocompromised (Acute) Partial nontraumatic amputation of foot History of carpal tunnel surgery History of DVT (deep vein thrombosis) Diabetes (Acute) HIV (human immunodeficiency virus infection) (Acute) Discharge planning issues DVT prophylaxis Loss of protective sensation of skin of foot Status post partial amputation of foot Suicidal ideation Medical History Acute dehydration Acute hyperglycemia Acute venous thrombosis GEGE (acute kidney injury) Diabetes Falls History of DVT (deep vein thrombosis) HIV (human immunodeficiency virus infection) Hypertension Partial nontraumatic amputation of foot UTI (urinary tract infection) Surgical History History of carpal tunnel release of both wrists History of carpal tunnel surgery Family History Other Breast cancer Diabetes Hypertension Social History Smoking Status: Never smoker Do You Dip or Chew Tobacco: No; Hx Alcohol Use: No Hx Substance Use: No Preferred Language: Kazakh Communication Ability: Effective Regional Economic Liaison Required: No Beliefs That Will Affect Care: None marital status: Single Current Living Situation: Personal Care Facility Current Living Situation Comment: To [facility] How many Children do You have: 1 Other Information That Helps Us Care for You: No Feels Safe at Home: Yes Safety Concerns: Feels Safe At This Time Assistive Devices: Wheelchair Allergies Allergies Allergy/AdvReac Type Severity Reaction Status Date / Time amoxicillin [From Augmentin] Allergy Severe MERLE Verified 12/23/24 23:22 SYNDROME clams Allergy Severe HIVES Verified 12/23/24 23:22 clavulanic acid Allergy Severe MERLE Verified 12/23/24 23:22 [From Augmentin] SYNDROME ceftriaxone Allergy Intermediate HIVES, Rash Verified 12/23/24 23:22 levofloxacin Allergy Intermediate Hives Verified 12/23/24 23:22 Penicillins Allergy Intermediate CHILLS/RYAN Verified 12/23/24 23:22 RS rosiglitazone [From Avandia] Allergy Intermediate Hives Verified 12/23/24 23:22 shellfish derived Allergy Unknown Verified 12/23/24 23:22 vancomycin AdvReac Mild RED MAN Verified 12/23/24 23:22 SYNDROME Home Meds Home Medications Medication Instructions Recorded Confirmed dolutegravir 50 mg tablet (Tivicay) 50 mg PO HS 02/22/20 12/23/24 emtricitabine 200 mg-tenofovir 1 tab PO HS 02/22/20 12/23/24 alafenamide fumarate 25 mg tablet (Descovy) cholecalciferol (vitamin D3) 25 25 mcg PO QAM 08/27/21 12/23/24 mcg (1,000 unit) tablet lidocaine 4 % topical patch 1 patch topical QAM 08/27/21 12/23/24 loperamide 2 mg capsule 2 mg PO Q6H PRN loose stools 08/27/21 12/23/24 Menthol Mouth/Throat 7mg 1 federico PO .EVERY 1 HOUR PRN sore 12/23/24 12/24/24 throat or cough Vitamin-Folic Acid 1 Mg 1 tab PO QAM 12/23/24 12/23/24 acetaminophen 325 mg tablet 650 mg PO Q6 PRN pain 1-4 12/23/24 12/23/24 acetaminophen 325 mg tablet 650 mg PO Q6 PRN temp>100 12/23/24 12/23/24 (Tylenol) acetaminophen 500 mg tablet 1,000 mg PO AMHS 12/23/24 12/23/24 ascorbic acid (vitamin C) 500 mg 500 mg PO BID 12/23/24 12/23/24 tablet (Vitamin C) atorvastatin 20 mg tablet 20 mg PO HS 12/23/24 12/23/24 buspirone 10 mg tablet 20 mg PO TID 12/23/24 12/23/24 carboxymethylcellulose sodium 1 % 1 drp ophthalmic (eye) . NEEDED 12/23/24 12/23/24 eye drops PRN Dry Eyes clonazepam 0.5 mg tablet 0.5 mg PO TID 12/23/24 12/23/24 cyanocobalamin (vitamin B-12) 500 500 mcg PO QAM 12/23/24 12/23/24 mcg tablet (Vitamin B-12) diclofenac sodium 1 % topical gel 4 g topical Q6 PRN bilateral knee 12/23/24 12/23/24 pain duloxetine 30 mg capsule,delayed 30 mg PO BID 12/23/24 12/23/24 release famotidine 20 mg tablet 20 mg PO HS 12/23/24 12/24/24 insulin glargine 100 unit/mL 15 unit subcut QAM 12/23/24 12/23/24 subcutaneous solution (Lantus U-100 Insulin) losartan 25 mg tablet 25 mg PO QAM 12/23/24 12/23/24 magnesium oxide 400 mg PO AMHS 12/23/24 12/23/24 menthol 0.44 %-zinc oxide 20 % 1 ea topical QS 12/23/24 12/23/24 topical ointment metformin 500 mg tablet 500 mg PO BID 12/23/24 12/23/24 nystatin 100,000 unit/gram topical 1 applic topical BID 12/23/24 12/23/24 ointment ondansetron HCl 4 mg tablet 4 mg PO Q6 PRN nausea or vomiting 12/23/24 12/23/24 oxycodone 5 mg tablet 5 mg PO Q6 PRN moderate or severe 12/23/24 12/23/24 pain potassium chloride 20 mEq 20 meq PO QAM 12/23/24 12/23/24 tablet,extended release(part/cryst) propranolol 10 mg tablet 10 mg PO BID 12/23/24 12/23/24 risperidone 0.25 mg tablet 0.25 mg PO .IN THE AFTERNOON 12/23/24 12/23/24 risperidone 0.25 mg tablet 0.75 mg PO DAILY 12/23/24 12/23/24 sodium chloride 1 gram tablet 1,000 mg PO AMHS 12/23/24 12/23/24 triamcinolone acetonide 0.1 % 1 applic topical BID 12/23/24 12/23/24 topical cream Results & Data (ED) Vital Signs Vital Signs - 24 hr 12/23/24 19:35 12/23/24 19:35 12/23/24 19:37 Temperature 37.2 C Temperature Source Oral Pulse Rate 100 H Pulse Rate [Apical] Pulse Rate from SpO2 Sensor Respiratory Rate 16 Respiratory Effort / Characteristics Non-Labored Spontaneous Respiratory Depth Respiratory Pattern Blood Pressure 124/80 124/80 124/80 Blood Pressure [Right Arm] Blood Pressure Mean 105 105 94 Blood Pressure Mean [Right Arm] Blood Pressure Position [Right Arm] Pulse Oximetry 99 Oxygen Delivery Method Room Air Sepsis Recent Fever Within 48 Hours No Sepsis New/Unexplained Change in Mental Status No Sepsis Action Taken by Nursing No Action Required 12/23/24 19:37 12/23/24 19:38 12/23/24 19:39 Temperature 37.2 C Temperature Source Oral Pulse Rate 99 H 99 H Pulse Rate [Apical] 100 H Pulse Rate from SpO2 Sensor 99 H Respiratory Rate 21 14 Respiratory Effort / Characteristics Respiratory Depth Respiratory Pattern Blood Pressure Blood Pressure [Right Arm] 124/80 Blood Pressure Mean Blood Pressure Mean [Right Arm] 94 Blood Pressure Position [Right Arm] Pulse Oximetry 99 97 Oxygen Delivery Method Room Air Sepsis Recent Fever Within 48 Hours Sepsis New/Unexplained Change in Mental Status Sepsis Action Taken by Nursing 12/23/24 19:55 12/23/24 20:00 12/23/24 20:00 Temperature Temperature Source Pulse Rate 101 H Pulse Rate [Apical] Pulse Rate from SpO2 Sensor Respiratory Rate 18 Respiratory Effort / Characteristics Respiratory Depth Respiratory Pattern Blood Pressure 119/87 119/87 Blood Pressure [Right Arm] Blood Pressure Mean 98 98 Blood Pressure Mean [Right Arm] Blood Pressure Position [Right Arm] Pulse Oximetry 96 Oxygen Delivery Method Room Air Sepsis Recent Fever Within 48 Hours Sepsis New/Unexplained Change in Mental Status Sepsis Action Taken by Nursing 12/23/24 20:00 12/23/24 21:21 12/23/24 21:22 Temperature Temperature Source Pulse Rate 101 H 97 H Pulse Rate [Apical] 94 H Pulse Rate from SpO2 Sensor 101 H 97 H Respiratory Rate 17 19 19 Respiratory Effort / Characteristics Non-Labored Spontaneous Respiratory Depth Normal Respiratory Pattern Regular Blood Pressure Blood Pressure [Right Arm] 115/75 Blood Pressure Mean Blood Pressure Mean [Right Arm] 88 Blood Pressure Position [Right Arm] Semi-fowlers Pulse Oximetry 97 99 99 Oxygen Delivery Method Room Air Sepsis Recent Fever Within 48 Hours Sepsis New/Unexplained Change in Mental Status Sepsis Action Taken by Nursing 12/23/24 21:30 12/23/24 21:33 12/23/24 21:42 Temperature Temperature Source Pulse Rate 94 H 98 H Pulse Rate [Apical] Pulse Rate from SpO2 Sensor 94 H 98 H Respiratory Rate 15 18 Respiratory Effort / Characteristics Respiratory Depth Respiratory Pattern Blood Pressure 115/75 Blood Pressure [Right Arm] Blood Pressure Mean 85 Blood Pressure Mean [Right Arm] Blood Pressure Position [Right Arm] Pulse Oximetry 95 98 Oxygen Delivery Method Sepsis Recent Fever Within 48 Hours Sepsis New/Unexplained Change in Mental Status Sepsis Action Taken by Nursing 12/23/24 21:54 12/23/24 21:57 12/23/24 22:00 Temperature Temperature Source Pulse Rate 97 H 99 H Pulse Rate [Apical] Pulse Rate from SpO2 Sensor 97 H 101 H Respiratory Rate 14 20 Respiratory Effort / Characteristics Respiratory Depth Respiratory Pattern Blood Pressure 86/73 L Blood Pressure [Right Arm] Blood Pressure Mean 78 Blood Pressure Mean [Right Arm] Blood Pressure Position [Right Arm] Pulse Oximetry 95 93 Oxygen Delivery Method Sepsis Recent Fever Within 48 Hours Sepsis New/Unexplained Change in Mental Status Sepsis Action Taken by Nursing 12/23/24 22:00 12/23/24 22:12 12/23/24 22:21 Temperature Temperature Source Pulse Rate 93 H 91 H Pulse Rate [Apical] Pulse Rate from SpO2 Sensor 93 H 91 H Respiratory Rate 13 11 L Respiratory Effort / Characteristics Respiratory Depth Respiratory Pattern Blood Pressure 86/73 L Blood Pressure [Right Arm] Blood Pressure Mean 78 Blood Pressure Mean [Right Arm] Blood Pressure Position [Right Arm] Pulse Oximetry 98 98 Oxygen Delivery Method Sepsis Recent Fever Within 48 Hours Sepsis New/Unexplained Change in Mental Status Sepsis Action Taken by Nursing 12/23/24 22:30 12/23/24 22:30 12/23/24 22:30 Temperature Temperature Source Pulse Rate 93 H Pulse Rate [Apical] Pulse Rate from SpO2 Sensor 93 H Respiratory Rate 13 Respiratory Effort / Characteristics Respiratory Depth Respiratory Pattern Blood Pressure 104/73 104/73 Blood Pressure [Right Arm] Blood Pressure Mean 88 88 Blood Pressure Mean [Right Arm] Blood Pressure Position [Right Arm] Pulse Oximetry 99 Oxygen Delivery Method Sepsis Recent Fever Within 48 Hours Sepsis New/Unexplained Change in Mental Status Sepsis Action Taken by Nursing 12/23/24 22:30 12/23/24 22:30 12/23/24 22:42 Temperature Temperature Source Pulse Rate 94 H Pulse Rate [Apical] Pulse Rate from SpO2 Sensor 94 H Respiratory Rate 17 Respiratory Effort / Characteristics Respiratory Depth Respiratory Pattern Blood Pressure 104/73 104/73 Blood Pressure [Right Arm] Blood Pressure Mean 88 88 Blood Pressure Mean [Right Arm] Blood Pressure Position [Right Arm] Pulse Oximetry 98 Oxygen Delivery Method Sepsis Recent Fever Within 48 Hours Sepsis New/Unexplained Change in Mental Status Sepsis Action Taken by Nursing 12/23/24 22:48 12/23/24 23:00 12/23/24 23:01 Temperature Temperature Source Pulse Rate 97 H Pulse Rate [Apical] 94 H Pulse Rate from SpO2 Sensor 95 H Respiratory Rate 12 16 Respiratory Effort / Characteristics Respiratory Depth Respiratory Pattern Blood Pressure 90/75 L Blood Pressure [Right Arm] 90/75 L Blood Pressure Mean 85 Blood Pressure Mean [Right Arm] 80 Blood Pressure Position [Right Arm] Pulse Oximetry 98 97 Oxygen Delivery Method Room Air Sepsis Recent Fever Within 48 Hours Sepsis New/Unexplained Change in Mental Status Sepsis Action Taken by Nursing 12/23/24 23:01 12/23/24 23:01 12/23/24 23:12 Temperature Temperature Source Pulse Rate 94 H Pulse Rate [Apical] Pulse Rate from SpO2 Sensor 93 H Respiratory Rate 10 L Respiratory Effort / Characteristics Respiratory Depth Respiratory Pattern Blood Pressure 90/75 L 90/75 L Blood Pressure [Right Arm] Blood Pressure Mean 85 85 Blood Pressure Mean [Right Arm] Blood Pressure Position [Right Arm] Pulse Oximetry 99 Oxygen Delivery Method Sepsis Recent Fever Within 48 Hours Sepsis New/Unexplained Change in Mental Status Sepsis Action Taken by Nursing 12/23/24 23:24 12/23/24 23:27 12/23/24 23:30 Temperature Temperature Source Pulse Rate 93 H 94 H Pulse Rate [Apical] Pulse Rate from SpO2 Sensor 93 H 93 H Respiratory Rate 18 15 Respiratory Effort / Characteristics Respiratory Depth Respiratory Pattern Blood Pressure 115/76 Blood Pressure [Right Arm] Blood Pressure Mean 90 Blood Pressure Mean [Right Arm] Blood Pressure Position [Right Arm] Pulse Oximetry 98 98 Oxygen Delivery Method Sepsis Recent Fever Within 48 Hours Sepsis New/Unexplained Change in Mental Status Sepsis Action Taken by Nursing 12/23/24 23:30 12/23/24 23:33 12/23/24 23:34 Temperature Temperature Source Pulse Rate 90 90 Pulse Rate [Apical] Pulse Rate from SpO2 Sensor 91 H Respiratory Rate 14 Respiratory Effort / Characteristics Respiratory Depth Respiratory Pattern Blood Pressure 115/76 Blood Pressure [Right Arm] Blood Pressure Mean 90 Blood Pressure Mean [Right Arm] Blood Pressure Position [Right Arm] Pulse Oximetry 98 Oxygen Delivery Method Sepsis Recent Fever Within 48 Hours Sepsis New/Unexplained Change in Mental Status Sepsis Action Taken by Nursing Laboratory Data 12/23/24 19:55 12/23/24 19:55 Lab Results 12/23/24 12/23/24 12/23/24 Range/Units 19:55 20:03 21:20 WBC 8.56 (4.8-10.8) K/ul RBC 3.80 L (4.20-5.40) M/uL Hgb 11.8 L (12.0-16.0) g/dl POC Hgb 11.2 L (12.0-16.0) g/dl Hct 34.6 L (37.0-47.0) % POC Hct 33 L (37-47) % MCV 91.1 (80.0-100.0) fL MCH 31.1 (25.0-34.0) pg MCHC 34.1 (32.0-36.0) g/dL RDW Std Deviation 41.1 (36.4-46.3) fL RDW Coeff of [place] 12.4 (11.5-14.5) % Plt Count 322 (130-400) K/uL MPV 8.8 L (9.4-12.4) fL Immature Gran % (Auto) 0.4 % Neut % (Auto) 63.0 % Lymph % (Auto) 28.5 % [place] % (Auto) 4.8 % Eos % (Auto) 2.8 % Baso % (Auto) 0.5 % Neut # (Auto) 5.40 (1.40-6.50) K/uL Lymph # (Auto) 2.44 (1.20-3.40) K/uL [place] # (Auto) 0.41 (0.11-0.59) K/uL Eos # (Auto) 0.24 (0.00-0.50) K/uL Baso # (Auto) 0.04 (0.00-0.20) K/uL Immature Gran # (Auto) 0.03 (0.01-0.20) K/uL PT 10.7 (9.0-12.0) Seconds INR 1.0 (0.9-1.1) APTT 29 (21-31) Seconds PTT Ratio 1.1 POC Sodium 136 (135-144) mmol/L Sodium 132 L (136-145) mmol/L POC Potassium 4.6 (3.3-5.0) mmol/L Potassium 4.5 (3.5-5.1) mmol/L POC Chloride 98 L (101-112) mmol/L Chloride 99 (98-107) mmol/L Carbon Dioxide 27 (21-32) mmol/L POC Total CO2 26 (24-31) mmol/L Anion Gap 6 (3-11) POC Anion Gap 18.0 (16-25) mmol/L POC BUN 12 (7-18) mg/dl BUN 12 (6-23) mg/dl Creatinine 0.86 (0.6-1.2) mg/dl POC Creatinine 1.0 (0.6-1.3) mg/dl Est Cr Clr Drug Dosing 64.9 ml/min eGFR 75.86 BUN/Creatinine Ratio 14.0 (10-20) Glucose 108 H (70-99(Fasting)) mg/dl POC Glucose (other) 106 H (70-99) mg/dl Lactate 2.9 H* (0.4-2.0) mmol/L Calcium 8.7 (8.6-10.3) mg/dl POC Ioniz Calcium Renee 1.14 (1.12-1.32) mmol/l Magnesium 1.7 (1.7-2.4) mg/dl Total Bilirubin 0.3 (0.2-1.0) mg/dl AST 12 L (13-39) U/L ALT 8 (7-52) U/L Alkaline Phosphatase 93 (34-104) U/L Troponin I High Sens 4.4 (0-14) pg/ml Total Protein 6.9 (6.0-8.3) gm/dl Albumin 3.5 (3.4-5.0) gm/dl Globulin 3.4 (2.5-4.0) gm/dl Albumin/Globulin Ratio 1.0 (0.9-2) Lipase 46 (11-82) U/L Procalcitonin < 0.02 (0-0.5) ng/ml Urine Color Yellow Urine Appearance Clear (Clear) Urine pH 7.5 (4.5-7.5) Ur Specific [place] > 1.045 H (1.000-1.030) Urine Protein Negative (Negative) Urine Glucose (UA) Negative (Negative) Urine Ketones Negative (Negative) Urine Blood Negative (Negative) Urine Nitrite Positive A (Negative) Urine Bilirubin Negative (Negative) Urine Urobilinogen Negative (Negative) Ur Leukocyte Esterase 1+ H (Negative) Urine WBC (Auto) 11-20 H (0-5) /hpf Urine RBC (Auto) 3-5 H (0-2) /hpf U Hyaline Cast (Auto) 0-2 (0-2) /lpf U Epithel Cells (Auto) 0-2 (0-2) /hpf Urine Bacteria (Auto) 4+ H (None Seen) Urine Comment 12/23/24 Range/Units 22:46 WBC (4.8-10.8) K/ul RBC (4.20-5.40) M/uL Hgb (12.0-16.0) g/dl POC Hgb (12.0-16.0) g/dl Hct (37.0-47.0) % POC Hct (37-47) % MCV (80.0-100.0) fL MCH (25.0-34.0) pg MCHC (32.0-36.0) g/dL RDW Std Deviation (36.4-46.3) fL RDW Coeff of [place] (11.5-14.5) % Plt Count (130-400) K/uL MPV (9.4-12.4) fL Immature Gran % (Auto) % Neut % (Auto) % Lymph % (Auto) % [place] % (Auto) % Eos % (Auto) % Baso % (Auto) % Neut # (Auto) (1.40-6.50) K/uL Lymph # (Auto) (1.20-3.40) K/uL [place] # (Auto) (0.11-0.59) K/uL Eos # (Auto) (0.00-0.50) K/uL Baso # (Auto) (0.00-0.20) K/uL Immature Gran # (Auto) (0.01-0.20) K/uL PT (9.0-12.0) Seconds INR (0.9-1.1) APTT (21-31) Seconds PTT Ratio POC Sodium (135-144) mmol/L Sodium (136-145) mmol/L POC Potassium (3.3-5.0) mmol/L Potassium (3.5-5.1) mmol/L POC Chloride (101-112) mmol/L Chloride (98-107) mmol/L Carbon Dioxide (21-32) mmol/L POC Total CO2 (24-31) mmol/L Anion Gap (3-11) POC Anion Gap (16-25) mmol/L POC BUN (7-18) mg/dl BUN (6-23) mg/dl Creatinine (0.6-1.2) mg/dl POC Creatinine (0.6-1.3) mg/dl Est Cr Clr Drug Dosing ml/min eGFR BUN/Creatinine Ratio (10-20) Glucose (70-99(Fasting)) mg/dl POC Glucose (other) (70-99) mg/dl Lactate 1.5 (0.4-2.0) mmol/L Calcium (8.6-10.3) mg/dl POC Ioniz Calcium Renee (1.12-1.32) mmol/l Magnesium (1.7-2.4) mg/dl Total Bilirubin (0.2-1.0) mg/dl AST (13-39) U/L ALT (7-52) U/L Alkaline Phosphatase (34-104) U/L Troponin I High Sens (0-14) pg/ml Total Protein (6.0-8.3) gm/dl Albumin (3.4-5.0) gm/dl Globulin (2.5-4.0) gm/dl Albumin/Globulin Ratio (0.9-2) Lipase (11-82) U/L Procalcitonin (0-0.5) ng/ml Urine Color Urine Appearance (Clear) Urine pH (4.5-7.5) Ur Specific [place] (1.000-1.030) Urine Protein (Negative) Urine Glucose (UA) (Negative) Urine Ketones (Negative) Urine Blood (Negative) Urine Nitrite (Negative) Urine Bilirubin (Negative) Urine Urobilinogen (Negative) Ur Leukocyte Esterase (Negative) Urine WBC (Auto) (0-5) /hpf Urine RBC (Auto) (0-2) /hpf U Hyaline Cast (Auto) (0-2) /lpf U Epithel Cells (Auto) (0-2) /hpf Urine Bacteria (Auto) (None Seen) Urine Comment Administered Medications Lactated Ringer's (Lr) 1,000 mls @ 125 mls/hr IV .Q8H ALEKS Stop: 12/24/24 16:29 Last Admin: 12/24/24 01:56 Dose: 125 mls/hr Documented By: RODRÍGUEZ Discontinued Medications Cefepime HCl (Cefepime 2,000 Mg/20 Ml Iv Push) Confirm Administered Dose 2,000 mg IV .ST-MED ONE Stop: 12/24/24 00:44 Last Admin: 12/24/24 02:09 Dose: Not Given Documented By: RODRÍGUEZ Clonazepam (Clonazepam 0.5 Mg Tab) 0.5 mg PO NOW STA Stop: 12/23/24 23:33 Last Admin: 12/24/24 00:22 Dose: 0.5 mg Documented By: manjit Duloxetine HCl (Duloxetine Hcl 30 Mg Cap) 30 mg PO NOW STA Stop: 12/23/24 23:33 Last Admin: 12/24/24 00:22 Dose: 30 mg Documented By: manjit Fentanyl Citrate (Fentanyl Citrate Pf 100 Mcg/2 Ml Vial) 50 mcg IV NOW STA Stop: 12/23/24 21:18 Last Admin: 12/23/24 21:26 Dose: 50 mcg Documented By: ROBERTO CARLOS Acetaminophen (Ofirmev) 1,000 mg in 100 mls @ 400 mls/hr IV NOW STA Stop: 12/23/24 20:01 Last Infusion: 12/23/24 21:26 Dose: Infused Documented By: ROBERTO CARLOS Admin: 12/23/24 20:03 Dose: 400 mls/hr Documented By: YOHAN Sodium Chloride (Nss) 500 mls @ 999 mls/hr IV .Q31M ONE Stop: 12/23/24 20:17 Last Infusion: 12/23/24 21:26 Dose: Infused Documented By: ROBERTO CARLOS Admin: 12/23/24 20:03 Dose: 999 mls/hr Documented By: YOHAN Sodium Chloride (Nss) 1,000 mls @ 999 mls/hr IV .Q1H1M ONE Stop: 12/23/24 21:14 Last Infusion: 12/24/24 02:09 Dose: Infused Documented By: Admin: 12/23/24 20:28 Dose: 999 mls/hr Documented By: YOHAN Daptomycin 500 mg/ Syringe 10 mls @ 5 mls/min IV NOW ONE; Protocol Stop: 12/23/24 21:46 Last Admin: 12/23/24 22:01 Dose: 5 mls/min Documented By: ROBERTO CARLOS Sodium Chloride (Nss) 1,000 mls @ 999 mls/hr IV .Q1H1M ALEKS Stop: 12/24/24 00:28 Last Infusion: 12/24/24 02:09 Dose: Infused Documented By: Admin: 12/24/24 00:20 Dose: 999 mls/hr Documented By: manjit Cefepime HCl (Maxipime 2000mg) 2,000 mg in 20 mls @ 5 mls/min IV NOW STA; Protocol Stop: 12/23/24 23:31 Last Admin: 12/24/24 00:45 Dose: 5 mls/min Documented By: manjit Meropenem 500 mg/ Syringe 10 mls @ 2 mls/min IV NOW STA; Protocol Stop: 12/24/24 00:11 Last Admin: 12/24/24 00:27 Dose: 2 mls/min Documented By: manjit Ioversol (Optiray 320 100ml) 92 ml IV ONCE ONE Stop: 12/23/24 20:17 Last Admin: 12/24/24 02:09 Dose: Not Given Documented By: RODRÍGUEZ Lidocaine (Lidocaine 5% 1 Patch) 1 patch TD NOW STA Stop: 12/23/24 23:29 Last Admin: 12/24/24 00:23 Dose: 1 patch Documented By: manjit Ondansetron HCl (Ondansetron Inj 2 Mg/Ml 2 Ml Vial) 4 mg IV NOW STA Stop: 12/23/24 21:18 Last Admin: 12/23/24 21:26 Dose: 4 mg Documented By: EMB Imaging Data Radiologist's Impression: Abdomen/Pelvis CT 12/23/24 19:47 Exam(s): CT ABDOMEN + PELVIS With Contrast IV Amt: 92cc opti 320 EXAM: CT Abdomen and Pelvis With Intravenous Contrast CLINICAL HISTORY: Reason for exam: Trauma 2 wks ago, continued pain/bruising. TECHNIQUE: Axial computed tomography images of the abdomen and pelvis with intravenous contrast. CTDI is 61.33 mGy and DLP is 2513.62 mGy-cm. Automated exposure control was utilized for the study. A dose lowering technique was utilized adhering to the principles of ALARA. CONTRAST: Patient received 92cc Optiray 320 of IV contrast COMPARISON: No relevant prior studies available. FINDINGS: Lung bases: Unremarkable. No mass. No consolidation. ABDOMEN: Liver: Unremarkable. No mass. Gallbladder and bile ducts: Unremarkable. No calcified stones. No ductal dilation. Pancreas: Unremarkable. No mass. No ductal dilation. Spleen: Unremarkable. No splenomegaly. Adrenals: Unremarkable. No mass. Kidneys and ureters: 2-3 mm vascular calcifications or nonobstructive caliceal calculi in both kidneys. No hydronephrosis or ureterolithiasis is seen. Stomach and bowel: Unremarkable. No obstruction. No mucosal thickening. PELVIS: Appendix: No findings to suggest acute appendicitis. Bladder: The urinary bladder is decompressed by a suprapubic [place] catheter but otherwise unremarkable. Reproductive: Unremarkable as visualized. ABDOMEN and PELVIS: Intraperitoneal space: Bowel loops are nondilated. No pneumoperitoneum, free fluid, or acute inflammatory changes are seen involving the bowel. Bones/joints: Please see CT thoracic or lumbar spine for description of T12 compression fracture. Previous multilevel instrumentation and fusion of the lumbar spine. Mild osteoarthritic changes in both hips. No acute hip or pelvic fracture is seen. No dislocation. Soft tissues: 5.5 x 2.6 cm smooth lobular calcification in the subcutaneous tissues superficial to the right side of the sacrum and inferior pelvis consistent with heterotopic ossification. Vasculature: The abdominal aorta is mildly calcified but nondilated. There is no aneurysm or dissection. Lymph nodes: Unremarkable. No enlarged lymph nodes. IMPRESSION: 1. Please see CT thoracic or lumbar spine for description of T12 compression fracture. 2. Bowel loops are nondilated. No pneumoperitoneum, free fluid, or acute inflammatory changes are seen involving the bowel. 3. No acute traumatic or inflammatory process is seen within the abdomen or pelvis. Electronically signed by: Adriano Olivier MD 12/23/24 21:[address] 12/23/24 19:47 Exam(s): CT C SPINE EXAM: CT Cervical Spine Without Intravenous Contrast CLINICAL HISTORY: Reason for exam: Trauma 2 wks ago, continued pain/bruising. TECHNIQUE: Axial computed tomography images of the cervical spine without intravenous contrast. CTDI is 26.96 mGy and DLP is 502.51 mGy-cm. Automated exposure control was utilized for the study. A dose lowering technique was utilized adhering to the principles of ALARA. COMPARISON: No relevant prior studies available. FINDINGS: Vertebrae: Mild narrowing and osteophytosis of the atlantodental joint. The odontoid process is intact. [id number] multilevel degenerative disc disease and facet arthrosis throughout the cervical spine. No traumatic subluxation is seen. Nondisplaced coronally oriented lucency through the osteophyte at the anterior inferior corner of the C3 vertebral body. Normal anatomic variant of incomplete fusion of the posterior arch of C1. Soft tissues: Severe calcification of the right carotid bifurcation and mild carotid calcification of the left.. DISCS/SPINAL CANAL/NEURAL FORAMINA: C2-C3: Unremarkable. No significant disc disease. No stenosis. C3-C4: Mild degenerative disc disease. 3 mm posterior osteophyte narrowing the canal to 9 mm. C4-C5: Degenerative fusion of the C4-5 level. Mild spinal stenosis measuring 9 mm. C5-C6: Moderate degenerative disc disease. Mild spinal stenosis measuring 8 mm. C6-C7: Moderate degenerative disc disease. Mild spinal stenosis measuring 9 mm. C7-T1: Moderate degenerative disc disease. Mild spinal stenosis measuring 9 mm. IMPRESSION: 1. [id number] multilevel degenerative disc disease and facet arthrosis throughout the cervical spine. No traumatic subluxation is seen. 2. Nondisplaced coronally oriented lucency through the osteophyte at the anterior inferior corner of the C3 vertebral body. This is likely a fracture and new since 2014 but no associated soft tissue swelling is seen. This may be chronic. 3. Mild multilevel spinal stenosis as described above. Electronically signed by: Adriano Olivier MD 12/23/24 21:[address] 12/23/24 19:47 Exam(s): CT CHEST With Contrast IV Amt: 92cc opti 320 EXAM: CT Chest With Intravenous Contrast CLINICAL HISTORY: Reason for exam: Trauma 2 wks ago, continued pain/bruising. TECHNIQUE: Axial computed tomography images of the chest with intravenous contrast. CTDI is 61.33 mGy and DLP is 2513.62 mGy-cm. Automated exposure control was utilized for the study. A dose lowering technique was utilized adhering to the principles of ALARA. CONTRAST: Patient received 92cc Optiray 320 of IV contrast COMPARISON: Chest x-ray from 05/22/2021 FINDINGS: Lungs: Unremarkable. No mass. No consolidation. Pleural space: Unremarkable. No significant effusion. No pneumothorax. Heart: Unremarkable. No cardiomegaly. No significant pericardial effusion. No significant coronary artery calcifications. Bones/joints: Acute appearing fracture of the distal 2 cm of the right clavicle. There are moderate osteoarthritic changes of the right shoulder. No dislocation. Moderate degenerative changes of the left shoulder. No acute fracture or dislocation is seen. 40% anterior wedge compression fracture of T12. There is a horizontal lucency remaining in the vertebral body as well as sclerosis. No surrounding soft tissue swelling is seen. Soft tissues: See above. Vasculature: The aortic arch is mildly calcified but nondilated. There is no aneurysm or dissection. Lymph nodes: Unremarkable. No enlarged lymph nodes. IMPRESSION: 1. Acute appearing fracture of the distal 2 cm of the right clavicle. There are moderate osteoarthritic changes of the right shoulder. No dislocation. 2. 40% anterior wedge compression fracture of T12. There is a horizontal lucency remaining in the vertebral body as well as sclerosis. No surrounding soft tissue swelling is seen. Consider subacute or non healed compression fracture. Electronically signed by: Adriano Olivier MD 12/23/24 21:36 PM Femur X-Ray 12/23/24 19:47 History: Pain Comparison: None Findings: There is no acute fracture or dislocation. Alignment is anatomic. Severeosteopenia.Vascular calcifications. There is no joint effusion or significant soft tissue swelling. Impression: No acute bony abnormality Electronically signed by Neo De Jesus 12-23-2024 10:12 PM Foot X-Ray 12/23/24 19:47 History: Fall Comparison: None Findings: There is no acute fracture or dislocation. Amputation changes across the proximal metatarsals. Severe osteopenia. Alignment is anatomic. Joint spaces are well maintained. There is no joint effusion or significant soft tissue swelling. Impression: No acute bony abnormality Electronically signed by Neo De Jesus 12-23-2024 10:[address] 12/23/24 19:47 Exam(s): CT HEAD Without Contrast EXAM: CT Head Without Intravenous Contrast CLINICAL HISTORY: Reason for exam: Trauma 2 wks ago, continued pain/bruising. TECHNIQUE: Axial computed tomography images of the head/brain without intravenous contrast. CTDI is 38.88 mGy and DLP is 624.41 mGy-cm. Automated exposure control was utilized for the study. A dose lowering technique was utilized adhering to the principles of ALARA. COMPARISON: 01/14/2015 FINDINGS: Brain: Mild cerebral atrophy and periventricular white matter low density consistent with chronic small vessel disease and/or senescent changes. No acute large vessel infarct or intracranial hemorrhage is seen. Ventricles: Unremarkable. No ventriculomegaly. Bones/joints: See below. Soft tissues: New right frontal scalp hematoma. No skull fracture is seen. Sinuses: Unremarkable as visualized. No acute sinusitis. Mastoid air cells: Unremarkable as visualized. No mastoid effusion. IMPRESSION: 1. New right frontal scalp hematoma. No skull fracture is seen. 2. Mild cerebral atrophy and periventricular white matter low density consistent with chronic small vessel disease and/or senescent changes. No acute large vessel infarct or intracranial hemorrhage is seen. Electronically signed by: Adriano Olivier MD 12/23/24 21:[address] 12/23/24 19:47 Exam(s): CT L SPINE With Contrast IV Amt: 92cc opti 320 EXAM: CT Lumbar Spine With Intravenous Contrast CLINICAL HISTORY: Reason for exam: Trauma 2 wks ago, continued pain/bruising. TECHNIQUE: Axial computed tomography images of the lumbar spine with intravenous contrast. CTDI is 61.33 mGy and DLP is 2513.62 mGy-cm. Automated exposure control was utilized for the study. A dose lowering technique was utilized adhering to the principles of ALARA. CONTRAST: Patient received 92cc Optiray 320 of IV contrast COMPARISON: No relevant prior studies available. FINDINGS: Vertebrae: 30-40% anterior wedge compression fracture of T12 with horizontal lucency through the vertebral body and surrounding sclerosis. Moderate diffuse osteopenia. Previous multilevel instrumentation and fusion consisting of pedicle screws attached to posterolateral rods spanning fusion and laminectomy extending from L2 through S1. The hardware is intact. No acute fracture or subluxation is seen. Chronic appearing 30% anterior wedge compression fracture of L1. Soft tissues: Unremarkable. DISCS/SPINAL CANAL/NEURAL FORAMINA: L1-L2: Mild degenerative disc disease. No stenosis. L2-L3: Mild degenerative disc disease. No stenosis. L3-L4: Previous fusion and laminectomy. No stenosis. L4-L5: Previous fusion and laminectomy. No stenosis. L5-S1: Previous fusion and laminectomy. No stenosis. IMPRESSION: 1. 30-40% anterior wedge compression fracture of T12 with horizontal lucency through the vertebral body and surrounding sclerosis. The configuration suggests subacute to chronic non healed compression fracture. No spinal stenosis. 2. Previous multilevel instrumentation and fusion consisting of pedicle screws attached to posterolateral rods spanning fusion and laminectomy extending from L2 through S1. The hardware is intact. No acute fracture or subluxation is seen. Electronically signed by: Adriano Olivier MD 12/23/24 21:46 PM Tibia/Fibula X-Ray 12/23/24 19:47 History: Fall Comparison: None Findings: There is no acute fracture or dislocation. Severe osteopenia. Vascular calcifications. Alignment is anatomic. History: Pain Comparison: None Findings: There is no acute fracture or dislocation. Alignment is anatomic. Joint spaces are well maintained. There is no joint effusion or significant soft tissue swelling. Impression: No acute bony abnormality There is no joint effusion or significant soft tissue swelling. Impression: No acute bony abnormality Electronically signed by Neo De Jesus 12-23-2024 10:[address] 12/23/24 20:18 Exam(s): CT RIGHT FOOT With Contrast IV Amt: 92cc opti 320 EXAM: CT Right Lower Extremity With Intravenous Contrast, Foot CLINICAL HISTORY: Reason for exam: Eval osteo vs nec fasc vs fracture. TECHNIQUE: Axial computed tomography images of the right foot with intravenous contrast. CTDI is 61.33 mGy and DLP is 2513.62 mGy-cm. Automated exposure control was utilized for the study. A dose lowering technique was utilized adhering to the principles of ALARA. CONTRAST: Patient received 92cc Optiray 320 of IV contrast COMPARISON: MRI from 03/19/2008 FINDINGS: Bones/joints: Moderate narrowing and osteophytosis throughout the ankle joint and throughout the intertarsal joints consistent with osteoarthritis. No acute fracture or dislocation is identified. There is moderate diffuse osteopenia. Previous transmetatarsal amputation of the midfoot. No focal osteolysis is seen to indicate osteomyelitis. Soft tissues: Unremarkable. No radiopaque foreign body. No subcutaneous emphysema is identified to suggest necrotizing fasciitis. IMPRESSION: 1. No subcutaneous emphysema is identified to suggest necrotizing fasciitis. 2. No focal osteolysis is seen to indicate osteomyelitis. 3. Moderate narrowing and osteophytosis throughout the ankle joint and throughout the intertarsal joints consistent with osteoarthritis. No acute fracture or dislocation is identified. 4. Previous transmetatarsal amputation of the midfoot. Electronically signed by: Adriano Olivier MD 12/23/24 21:40 PM Discharge Plan Visit Data Chief Complaint: Leg Injury/Pain Stated Complaint: R LEG PAIN, FALL 2 WKS AGO ED Provider: [facility] ED Midlevel Provider: Lynn Elena Discharge Problem: Sepsis, Falls, Complicated UTI (urinary tract infection), Closed right clavicular fracture, Hematoma of right parietal scalp, Right leg pain, Cellulitis of right foot Patient Disposition: Admitted As Inpatient Condition: Fair Discharge Instructions Interventions: ED Discharge Assessment Last Done: 12/24/24 01:20 Discharge Problem: Falls Qualifiers: Encounter type: initial encounter Qualified Code(s): W19.XXXA - Unspecified fall, initial encounter Closed right clavicular fracture Qualifiers: Encounter type: initial encounter Hematoma of right parietal scalp Qualifiers: Encounter type: initial encounter Qualified Code(s): S00.03XA - Contusion of scalp, initial encounter
[2024-12-23] MEDS: SODIUM CHLORIDE 0.9% 500 ML IV ONE (20:03)
[2024-12-23] MEDS: ACETAMINOPHEN 1,000 MG/100 ML VIAL IV STA (20:03)
[2024-12-23 20:12] LABS: Hematocrit (blood only) 34.6 % (37.0-47.0); Hemoglobin 11.8 g/dl (12.0-16.0); Immature Granulocytes # (auto) 0.03 K/uL (0.01-0.20); Immature Granulocytes % (auto) 0.4 %; Mean Corpuscular Hemoglobin 31.1 pg (25.0-34.0); Mean Corpuscular Volume 91.1 fL (80.0-100.0); Platelet Count 322 K/uL (130-400); RDW Standard Deviation 41.1 fL (36.4-46.3); Red Blood Count 3.80 M/uL (4.20-5.40); White Blood Count 8.56 K/ul (4.8-10.8)
[2024-12-23] MEDS: SODIUM CHLORIDE 0.9% 1,000 ML IV ONE (20:28)
[2024-12-23 20:31] LABS: Alanine Aminotransferase 8.0 U/L (7-52); Albumin Globulin Ratio 1.0 (0.9-2); Albumin Level 3.5 gm/dl (3.4-5.0); Alkaline Phosphatase 93.0 U/L (34-104); Anion Gap 6.0 (3-11); Bilirubin,Total 0.3 mg/dl (0.2-1.0); Blood Urea Nitrogen 12.0 mg/dl (6-23); Calcium 8.7 mg/dl (8.6-10.3); Carbon Dioxide 27.0 mmol/L (21-32); Chloride 99.0 mmol/L (98-107); Creatinine Clr Calc Pharmacy 64.9 ml/min; Globulin 3.4 gm/dl (2.5-4.0); Glucose 108.0 mg/dl (70-99(Fasting)); Lipase 46.0 U/L (11-82); Magnesium 1.7 mg/dl (1.7-2.4); Potassium 4.5 mmol/L (3.5-5.1); Sodium 132.0 mmol/L (136-145); Total Protein 6.9 gm/dl (6.0-8.3)
[2024-12-23 20:48] LABS: INR 1.0 (0.9-1.1); Partial Thromboplastin Time 29 Seconds (21-31); Prothrombin Time 10.7 Seconds (9.0-12.0)
--- NOTE | 2024-12-23 21:16 | CT Scan Report ---
Exam(s): CT HEAD Without Contrast EXAM: CT Head Without Intravenous Contrast CLINICAL HISTORY: Reason for exam: Trauma 2 wks ago, continued pain/bruising. TECHNIQUE: Axial computed tomography images of the head/brain without intravenous contrast. CTDI is 38.88 mGy and DLP is 624.41 mGy-cm. Automated exposure control was utilized for the study. A dose lowering technique was utilized adhering to the principles of ALARA. COMPARISON: 01/14/2015 FINDINGS: Brain: Mild cerebral atrophy and periventricular white matter low density consistent with chronic small vessel disease and/or senescent changes. No acute large vessel infarct or intracranial hemorrhage is seen. Ventricles: Unremarkable. No ventriculomegaly. Bones/joints: See below. Soft tissues: New right frontal scalp hematoma. No skull fracture is seen. Sinuses: Unremarkable as visualized. No acute sinusitis. Mastoid air cells: Unremarkable as visualized. No mastoid effusion. IMPRESSION: 1. New right frontal scalp hematoma. No skull fracture is seen. 2. Mild cerebral atrophy and periventricular white matter low density consistent with chronic small vessel disease and/or senescent changes. No acute large vessel infarct or intracranial hemorrhage is seen. Electronically signed by: Adriano Olivier MD 12/23/24 21:14 PM
[2024-12-23] MEDS: ONDANSETRON INJ 2 MG/ML 2 ML VIAL IV STA (21:26)
[2024-12-23] MEDS ORDERED: DAPTOmycin 575 MG in SYRINGE 0 ML IV ONE (21:33)
--- NOTE | 2024-12-23 21:34 | CT Scan Report ---
Exam(s): CT C SPINE EXAM: CT Cervical Spine Without Intravenous Contrast CLINICAL HISTORY: Reason for exam: Trauma 2 wks ago, continued pain/bruising. TECHNIQUE: Axial computed tomography images of the cervical spine without intravenous contrast. CTDI is 26.96 mGy and DLP is 502.51 mGy-cm. Automated exposure control was utilized for the study. A dose lowering technique was utilized adhering to the principles of ALARA. COMPARISON: No relevant prior studies available. FINDINGS: Vertebrae: Mild narrowing and osteophytosis of the atlantodental joint. The odontoid process is intact. [id number] multilevel degenerative disc disease and facet arthrosis throughout the cervical spine. No traumatic subluxation is seen. Nondisplaced coronally oriented lucency through the osteophyte at the anterior inferior corner of the C3 vertebral body. Normal anatomic variant of incomplete fusion of the posterior arch of C1. Soft tissues: Severe calcification of the right carotid bifurcation and mild carotid calcification of the left.. DISCS/SPINAL CANAL/NEURAL FORAMINA: C2-C3: Unremarkable. No significant disc disease. No stenosis. C3-C4: Mild degenerative disc disease. 3 mm posterior osteophyte narrowing the canal to 9 mm. C4-C5: Degenerative fusion of the C4-5 level. Mild spinal stenosis measuring 9 mm. C5-C6: Moderate degenerative disc disease. Mild spinal stenosis measuring 8 mm. C6-C7: Moderate degenerative disc disease. Mild spinal stenosis measuring 9 mm. C7-T1: Moderate degenerative disc disease. Mild spinal stenosis measuring 9 mm. IMPRESSION: 1. Ioiy-sq-[id number] multilevel degenerative disc disease and facet arthrosis throughout the cervical spine. No traumatic subluxation is seen. 2. Nondisplaced coronally oriented lucency through the osteophyte at the anterior inferior corner of the C3 vertebral body. This is likely a fracture and new since 2014 but no associated soft tissue swelling is seen. This may be chronic. 3. Mild multilevel spinal stenosis as described above. Electronically signed by: Adriano Olivier MD 12/23/24 21:33 PM
[2024-12-23 21:35] LABS: Appearance Urine Clear (Clear); Bacteria Urine Automated 4+ (None Seen); Cast Urine Automated 0-2 /lpf (0-2); Epithelial Cell Urine Auto 0-2 /hpf (0-2); Glucose Urine UA Negative (Negative)
--- NOTE | 2024-12-23 21:37 | CT Scan Report ---
Exam(s): CT CHEST With Contrast IV Amt: 92cc opti 320 EXAM: CT Chest With Intravenous Contrast CLINICAL HISTORY: Reason for exam: Trauma 2 wks ago, continued pain/bruising. TECHNIQUE: Axial computed tomography images of the chest with intravenous contrast. CTDI is 61.33 mGy and DLP is 2513.62 mGy-cm. Automated exposure control was utilized for the study. A dose lowering technique was utilized adhering to the principles of ALARA. CONTRAST: Patient received 92cc Optiray 320 of IV contrast COMPARISON: Chest x-ray from 05/22/2021 FINDINGS: Lungs: Unremarkable. No mass. No consolidation. Pleural space: Unremarkable. No significant effusion. No pneumothorax. Heart: Unremarkable. No cardiomegaly. No significant pericardial effusion. No significant coronary artery calcifications. Bones/joints: Acute appearing fracture of the distal 2 cm of the right clavicle. There are moderate osteoarthritic changes of the right shoulder. No dislocation. Moderate degenerative changes of the left shoulder. No acute fracture or dislocation is seen. 40% anterior wedge compression fracture of T12. There is a horizontal lucency remaining in the vertebral body as well as sclerosis. No surrounding soft tissue swelling is seen. Soft tissues: See above. Vasculature: The aortic arch is mildly calcified but nondilated. There is no aneurysm or dissection. Lymph nodes: Unremarkable. No enlarged lymph nodes. IMPRESSION: 1. Acute appearing fracture of the distal 2 cm of the right clavicle. There are moderate osteoarthritic changes of the right shoulder. No dislocation. 2. 40% anterior wedge compression fracture of T12. There is a horizontal lucency remaining in the vertebral body as well as sclerosis. No surrounding soft tissue swelling is seen. Consider subacute or non healed compression fracture. Electronically signed by: Adriano Olivier MD 12/23/24 21:36 PM
--- NOTE | 2024-12-23 21:41 | CT Scan Report ---
Exam(s): CT RIGHT FOOT With Contrast IV Amt: 92cc opti 320 EXAM: CT Right Lower Extremity With Intravenous Contrast, Foot CLINICAL HISTORY: Reason for exam: Eval osteo vs nec fasc vs fracture. TECHNIQUE: Axial computed tomography images of the right foot with intravenous contrast. CTDI is 61.33 mGy and DLP is 2513.62 mGy-cm. Automated exposure control was utilized for the study. A dose lowering technique was utilized adhering to the principles of ALARA. CONTRAST: Patient received 92cc Optiray 320 of IV contrast COMPARISON: MRI from 03/19/2008 FINDINGS: Bones/joints: Moderate narrowing and osteophytosis throughout the ankle joint and throughout the intertarsal joints consistent with osteoarthritis. No acute fracture or dislocation is identified. There is moderate diffuse osteopenia. Previous transmetatarsal amputation of the midfoot. No focal osteolysis is seen to indicate osteomyelitis. Soft tissues: Unremarkable. No radiopaque foreign body. No subcutaneous emphysema is identified to suggest necrotizing fasciitis. IMPRESSION: 1. No subcutaneous emphysema is identified to suggest necrotizing fasciitis. 2. No focal osteolysis is seen to indicate osteomyelitis. 3. Moderate narrowing and osteophytosis throughout the ankle joint and throughout the intertarsal joints consistent with osteoarthritis. No acute fracture or dislocation is identified. 4. Previous transmetatarsal amputation of the midfoot. Electronically signed by: Adriano Olivier MD 12/23/24 21:40 PM
--- NOTE | 2024-12-23 21:46 | CT Scan Report ---
Exam(s): CT L SPINE With Contrast IV Amt: 92cc opti 320 EXAM: CT Lumbar Spine With Intravenous Contrast CLINICAL HISTORY: Reason for exam: Trauma 2 wks ago, continued pain/bruising. TECHNIQUE: Axial computed tomography images of the lumbar spine with intravenous contrast. CTDI is 61.33 mGy and DLP is 2513.62 mGy-cm. Automated exposure control was utilized for the study. A dose lowering technique was utilized adhering to the principles of ALARA. CONTRAST: Patient received 92cc Optiray 320 of IV contrast COMPARISON: No relevant prior studies available. FINDINGS: Vertebrae: 30-40% anterior wedge compression fracture of T12 with horizontal lucency through the vertebral body and surrounding sclerosis. Moderate diffuse osteopenia. Previous multilevel instrumentation and fusion consisting of pedicle screws attached to posterolateral rods spanning fusion and laminectomy extending from L2 through S1. The hardware is intact. No acute fracture or subluxation is seen. Chronic appearing 30% anterior wedge compression fracture of L1. Soft tissues: Unremarkable. DISCS/SPINAL CANAL/NEURAL FORAMINA: L1-L2: Mild degenerative disc disease. No stenosis. L2-L3: Mild degenerative disc disease. No stenosis. L3-L4: Previous fusion and laminectomy. No stenosis. L4-L5: Previous fusion and laminectomy. No stenosis. L5-S1: Previous fusion and laminectomy. No stenosis. IMPRESSION: 1. 30-40% anterior wedge compression fracture of T12 with horizontal lucency through the vertebral body and surrounding sclerosis. The configuration suggests subacute to chronic non healed compression fracture. No spinal stenosis. 2. Previous multilevel instrumentation and fusion consisting of pedicle screws attached to posterolateral rods spanning fusion and laminectomy extending from L2 through S1. The hardware is intact. No acute fracture or subluxation is seen. Electronically signed by: Adriano Olivier MD 12/23/24 21:46 PM
--- NOTE | 2024-12-23 21:50 | CT Scan Report ---
Exam(s): CT ABDOMEN + PELVIS With Contrast IV Amt: 92cc opti 320 EXAM: CT Abdomen and Pelvis With Intravenous Contrast CLINICAL HISTORY: Reason for exam: Trauma 2 wks ago, continued pain/bruising. TECHNIQUE: Axial computed tomography images of the abdomen and pelvis with intravenous contrast. CTDI is 61.33 mGy and DLP is 2513.62 mGy-cm. Automated exposure control was utilized for the study. A dose lowering technique was utilized adhering to the principles of ALARA. CONTRAST: Patient received 92cc Optiray 320 of IV contrast COMPARISON: No relevant prior studies available. FINDINGS: Lung bases: Unremarkable. No mass. No consolidation. ABDOMEN: Liver: Unremarkable. No mass. Gallbladder and bile ducts: Unremarkable. No calcified stones. No ductal dilation. Pancreas: Unremarkable. No mass. No ductal dilation. Spleen: Unremarkable. No splenomegaly. Adrenals: Unremarkable. No mass. Kidneys and ureters: 2-3 mm vascular calcifications or nonobstructive caliceal calculi in both kidneys. No hydronephrosis or ureterolithiasis is seen. Stomach and bowel: Unremarkable. No obstruction. No mucosal thickening. PELVIS: Appendix: No findings to suggest acute appendicitis. Bladder: The urinary bladder is decompressed by a suprapubic [place] catheter but otherwise unremarkable. Reproductive: Unremarkable as visualized. ABDOMEN and PELVIS: Intraperitoneal space: Bowel loops are nondilated. No pneumoperitoneum, free fluid, or acute inflammatory changes are seen involving the bowel. Bones/joints: Please see CT thoracic or lumbar spine for description of T12 compression fracture. Previous multilevel instrumentation and fusion of the lumbar spine. Mild osteoarthritic changes in both hips. No acute hip or pelvic fracture is seen. No dislocation. Soft tissues: 5.5 x 2.6 cm smooth lobular calcification in the subcutaneous tissues superficial to the right side of the sacrum and inferior pelvis consistent with heterotopic ossification. Vasculature: The abdominal aorta is mildly calcified but nondilated. There is no aneurysm or dissection. Lymph nodes: Unremarkable. No enlarged lymph nodes. IMPRESSION: 1. Please see CT thoracic or lumbar spine for description of T12 compression fracture. 2. Bowel loops are nondilated. No pneumoperitoneum, free fluid, or acute inflammatory changes are seen involving the bowel. 3. No acute traumatic or inflammatory process is seen within the abdomen or pelvis. Electronically signed by: Adriano Olivier MD 12/23/24 21:49 PM
[2024-12-23] MEDS: DAPTOmycin 500 MG in SYRINGE 0 ML IV ONE (22:01)
--- NOTE | 2024-12-23 22:12 | XRay Report ---
History: Pain Comparison: None Findings: There is no acute fracture or dislocation. Alignment is anatomic. Severeosteopenia.Vascular calcifications. There is no joint effusion or significant soft tissue swelling. Impression: No acute bony abnormality Electronically signed by Neo De Jesus 12-23-2024 10:12 PM
--- NOTE | 2024-12-23 22:13 | XRay Report ---
History: Fall Comparison: None Findings: There is no acute fracture or dislocation. Amputation changes across the proximal metatarsals. Severe osteopenia. Alignment is anatomic. Joint spaces are well maintained. There is no joint effusion or significant soft tissue swelling. Impression: No acute bony abnormality Electronically signed by Neo De Jesus 12-23-2024 10:12 PM
--- NOTE | 2024-12-23 22:13 | XRay Report ---
History: Fall Comparison: None Findings: There is no acute fracture or dislocation. Severe osteopenia. Vascular calcifications. Alignment is anatomic. History: Pain Comparison: None Findings: There is no acute fracture or dislocation. Alignment is anatomic. Joint spaces are well maintained. There is no joint effusion or significant soft tissue swelling. Impression: No acute bony abnormality There is no joint effusion or significant soft tissue swelling. Impression: No acute bony abnormality Electronically signed by Neo De Jesus 12-23-2024 10:12 PM
--- NOTE | 2024-12-23 23:28 | History & Physical Report ---
Date of Service December 23, 2024 Assessment & Plan (1) Sepsis: (2) Immunocompromised: (3) Complicated UTI (urinary tract infection): (4) Falls: (5) Closed right clavicular fracture: (6) Hematoma of right parietal scalp: (7) Right leg pain: Plan Patient is a 64-year-old female with a past medical history of insulin-dependent type 2 DM, DVT, HTN, HIV, superior pubic catheter, MRSA, left AKA, TINO. Patient presented via EMS from [facility] due to a fall 2 weeks ago resulting in 10 out of 10 persistent leg pain. Workup in the ED revealed acute right clavicle fracture, chronic T12 and C3 fractures, otherwise diagnostic imaging negative for any acute traumatic changes. Patient was found to have a UTI and concern for sepsis with lactate 2.9, tachycardia, hypotension. She does have a history of multiple resistant bacteria and is being admitted for IV fluids and IV antibi otics. #UTI/sepsis/immunocompromised status - catheter associated, HIV infection. Tachycardic (HR 101), hypotensive (BP 90/75), lactate 2.9 -> 1.5, no leukocytosis, procal negative. UA appears positive for infection. - ABX coverage with daptomycin and meropenem - history of positive cultures for Proteus mirabilis (resistant to ampicillin, quinolones, Bactrim), E. coli (resistant to Bactrim), pansensitive Pseudomonas, Klebsiella pneumoniae (intermediate to nitro) - noted history of MRSA on EMR however no previous cultures recorded endorsing this - will provide MRSA coverage until culture resulted - hx of red many syndrome with Vanco - allergy to cephalosporins - Sepsis fluid bolus for actual body weight = 2454.00 - given 1.5L NSS in ED - Continue fluid resuscitation with additional 1L bolus of NSS followed by LR at 125 mL/hour x 2 L - follow blood and urine cultures - Trend CBC and BMP #fall/right clavicle fracture/right scalp hematoma/right leg pain - fall from wheelchair to ground, head strike on ground, no loss of consciousness. Diagnostic imaging revealed acute right distal clavicle fracture, right scalp hematoma. Otherwise diagnostic imaging negative for any acute traumatic changes. H&H stable. Defer PT/OT consults as patient is unable to bear weight at baseline and is wheelchair-bound - lidoderm patch to clavicle pain control with Tylenol prn, Toradol prn, and morphine 2/4 (for pain not relieved by #1 and 2) - sling ordered - refer to ortho in outpatient setting for clavicle fx #back pain/chronic fractures - Acute on chronic back pain. Diagnostic imaging revealed subacute to chronic 30-40% T12 anterior wedge compression fracture and chronic C3 fracture. Pain control as above - Note that there is no orthospine coverage over the weekend however Dr. Nguyen will be here Wednesday could consider consult if patient is still admitted at that time #hyponatremia - chronic, at baseline. continue home supplement. #HTNhypotensive with sepsis above. Holding propranolol and losartan #HIVimmunocompromise status, patient stated she has been compliant on her home medications. Continue Tivicay and descovy. #Type II DMSSI ordered. Continue home Lantus to 15 units every morning. Hold metformin. #HTNhold statin with daptomycin use #Mental healthcontinue buspirone, clonazepam, duloxetine, risperidone VTE ppx: SCD right leg, defer chemical with scalp hematoma - at baseline ambulation, hx of DVT Dispo: PCU Admission and Anticipated Discharge Date Admission Date: 12/23/24 - note admit orders placed prior to midnight History of Present Illness Chief Complaint: leg pain Primary Care Provider: [facility] Patient is a 64-year-old female with a past medical history of insulin-dependent type 2 DM, DVT, HTN, HIV, superior pubic catheter, MRSA, left AKA, TINO. Patient presented via EMS from [facility] due to a fall 2 weeks ago resulting in 10 out of 10 persistent leg pain. Workup in the ED revealed acute right clavicle fracture, chronic T12 and C3 fractures, otherwise diagnostic imaging negative for any acute traumatic changes. Patient was found to have a UTI and concern for sepsis with lactate 2.9, tachycardia, hypotension. She does have a history of multiple resistant bacteria and is being admitted for IV fluids and IV antibiotics. Patient seen at bedside. She stated she was sliding onto her wheelchair when she lost her balance and fell onto the floor onto her right side striking her head on the floor. She denies any loss of consciousness however did feel fuzzy afterwards. She does have a right scalp hematoma. She also endorses intermittent back pain and dyspnea since the fall. As well as the 10 out of 10 right leg pain. Pain is currently well-controlled after fentanyl 50 mcg IV in the ED. She is unable to bear weight at baseline and uses a wheelchair at all times and is sliding board for transport as she is unable to bear any weight on her right leg due to knee pain. She stated she has a history of frequent UTIs and previously had dysuria with them however had the suprapubic catheter placed several months ago. She denies any changes to her urinary habits. She is due for her evening medications, she states she uses sliding scale insulin 15 or 25 units every morning long-acting insulin. She wishes to be DNR/DNI. Note that patient was previously seen by [facility] medicine team however is coming to [facility] medicine team due to insurance. Allergies Allergy/AdvReac Type Severity Reaction Status Date / Time amoxicillin [From Augmentin] Allergy Severe MERLE Verified 12/23/24 23:22 SYNDROME clams Allergy Severe HIVES Verified 12/23/24 23:22 clavulanic acid Allergy Severe MERLE Verified 12/23/24 23:22 [From Augmentin] SYNDROME ceftriaxone Allergy Intermediate HIVES, Rash Verified 12/23/24 23:22 levofloxacin Allergy Intermediate Hives Verified 12/23/24 23:22 Penicillins Allergy Intermediate CHILLS/RYAN Verified 12/23/24 23:22 RS rosiglitazone [From Avandia] Allergy Intermediate Hives Verified 12/23/24 23:22 shellfish derived Allergy Unknown Verified 12/23/24 23:22 vancomycin AdvReac Mild RED MAN Verified 12/23/24 23:22 SYNDROME Home Medications Medication Instructions Recorded Confirmed Type dolutegravir 50 mg tablet (Tivicay) 50 mg PO HS 02/22/20 12/23/24 History emtricitabine 200 mg-tenofovir 1 tab PO HS 02/22/20 12/23/24 History alafenamide fumarate 25 mg tablet (Descovy) cholecalciferol (vitamin D3) 25 25 mcg PO QAM 08/27/21 12/23/24 History mcg (1,000 unit) tablet lidocaine 4 % topical patch 1 patch topical QAM 08/27/21 12/23/24 History loperamide 2 mg capsule 2 mg PO Q6H PRN loose stools 08/27/21 12/23/24 History Menthol Mouth/Throat 7mg 1 federico PO .EVERY 1 HOUR PRN sore 12/23/24 12/24/24 History throat or cough Vitamin-Folic Acid 1 Mg 1 tab PO QAM 12/23/24 12/23/24 History acetaminophen 325 mg tablet 650 mg PO Q6 PRN pain 1-4 12/23/24 12/23/24 History acetaminophen 325 mg tablet 650 mg PO Q6 PRN temp>100 12/23/24 12/23/24 History (Tylenol) acetaminophen 500 mg tablet 1,000 mg PO AMHS 12/23/24 12/23/24 History ascorbic acid (vitamin C) 500 mg 500 mg PO BID 12/23/24 12/23/24 History tablet (Vitamin C) atorvastatin 20 mg tablet 20 mg PO HS 12/23/24 12/23/24 History buspirone 10 mg tablet 20 mg PO TID 12/23/24 12/23/24 History carboxymethylcellulose sodium 1 % 1 drp ophthalmic (eye) . NEEDED 12/23/24 12/23/24 History eye drops PRN Dry Eyes clonazepam 0.5 mg tablet 0.5 mg PO TID 12/23/24 12/23/24 History cyanocobalamin (vitamin B-12) 500 500 mcg PO QAM 12/23/24 12/23/24 History mcg tablet (Vitamin B-12) diclofenac sodium 1 % topical gel 4 g topical Q6 PRN bilateral knee 12/23/24 12/23/24 History pain duloxetine 30 mg capsule,delayed 30 mg PO BID 12/23/24 12/23/24 History release famotidine 20 mg tablet 20 mg PO HS 12/23/24 12/24/24 History insulin glargine 100 unit/mL 15 unit subcut QAM 12/23/24 12/23/24 History subcutaneous solution (Lantus U-100 Insulin) losartan 25 mg tablet 25 mg PO QAM 12/23/24 12/23/24 History magnesium oxide 400 mg PO AMHS 12/23/24 12/23/24 History menthol 0.44 %-zinc oxide 20 % 1 ea topical QS 12/23/24 12/23/24 History topical ointment metformin 500 mg tablet 500 mg PO BID 12/23/24 12/23/24 History nystatin 100,000 unit/gram topical 1 applic topical BID 12/23/24 12/23/24 History ointment ondansetron HCl 4 mg tablet 4 mg PO Q6 PRN nausea or vomiting 12/23/24 12/23/24 History oxycodone 5 mg tablet 5 mg PO Q6 PRN moderate or severe 12/23/24 12/23/24 History pain potassium chloride 20 mEq 20 meq PO QAM 12/23/24 12/23/24 History tablet,extended release(part/cryst) propranolol 10 mg tablet 10 mg PO BID 12/23/24 12/23/24 History risperidone 0.25 mg tablet 0.25 mg PO .IN THE AFTERNOON 12/23/24 12/23/24 History risperidone 0.25 mg tablet 0.75 mg PO DAILY 12/23/24 12/23/24 History sodium chloride 1 gram tablet 1,000 mg PO AMHS 12/23/24 12/23/24 History triamcinolone acetonide 0.1 % 1 applic topical BID 12/23/24 12/23/24 History topical cream Past Med/Surg History Problem List (Updated 12/24/24 @ 05:34 by Lynn Elena PA-C) Cellulitis of right foot (Acute) Right leg pain (Acute) Hematoma of right parietal scalp (Acute) Closed right clavicular fracture (Acute) Falls (Acute) Complicated UTI (urinary tract infection) (Acute) Urinary incontinence Cellulitis (Acute) Fungal infection (Acute) Acute knee pain (Acute) Right knee pain Severe sepsis Adenovirus infection (Acute) Bacteremia Sepsis (Acute) Immunocompromised (Acute) Partial nontraumatic amputation of foot History of carpal tunnel surgery History of DVT (deep vein thrombosis) Diabetes (Acute) HIV (human immunodeficiency virus infection) (Acute) Discharge planning issues DVT prophylaxis Loss of protective sensation of skin of foot Status post partial amputation of foot Suicidal ideation Medical History Acute dehydration Acute hyperglycemia Acute venous thrombosis GEGE (acute kidney injury) Diabetes Falls History of DVT (deep vein thrombosis) HIV (human immunodeficiency virus infection) Hypertension Partial nontraumatic amputation of foot UTI (urinary tract infection) Surgical History History of carpal tunnel release of both wrists History of carpal tunnel surgery Family History Other Breast cancer Diabetes Hypertension Social History Smoking Status: Never smoker Do You Dip or Chew Tobacco: No; Hx Alcohol Use: No Hx Substance Use: No Preferred Language: Sinhala Communication Ability: Effective Overnight Caregiver Required: No Beliefs That Will Affect Care: None marital status: Single Current Living Situation: Personal Care Facility Current Living Situation Comment: To [facility] How many Children do You have: 1 Other Information That Helps Us Care for You: No Feels Safe at Home: Yes Safety Concerns: Feels Safe At This Time Assistive Devices: Wheelchair Review of Systems Review of Systems: see HPI Physical Exam Physical Exam: The patient is awake, alert and oriented 3, well developed and well nourished, in no acute distress. Non-toxic appearing. HEENT- EOMI, mucous membranes dry. Hearing grossly intact. Ecchymosis to right scalp. Heart-normal S1 and S2. No murmurs, rubs or gallops. Lungs-clear bilaterally, no respiratory distress, no accessory muscle use. Abdomen-normal bowel sounds and soft. No ascites noted. Non-tender. Extremities- no clubbing, cyanosis, or edema. Left AKA. Psychiatric-normal affect. Results & Data Results & Data Vital Signs (Past 12 Hours) Vital Signs Temp Pulse Pulse Resp BP BP Pulse Ox 12/23/24 23:00 94 H 16 90/75 L 97 12/23/24 21:22 94 H 19 115/75 99 12/23/24 19:55 101 H 18 96 12/23/24 19:38 99 H 12/23/24 19:37 37.2 C 100 H 21 124/80 99 12/23/24 19:37 37.2 C 100 H 16 124/80 99 O2 Del Method 12/23/24 23:00 Room Air 12/23/24 21:22 Room Air 12/23/24 19:55 Room Air 12/23/24 19:38 12/23/24 19:37 Room Air 12/23/24 19:37 Room Air Laboratory Results reviewed CBC, PT/INR, CMP, Pro-Jason, lactate, bio fire, UA, troponin, mag Diagnostic Findings Reviewed foot CT, tibia/fibula XR, lumbar spine CT, head CT, foot XR, femur XR, chest CT, cervical spine CT, AP CT Medications Administered ED1.5 mL NSS bolus, Tylenol 1G IV, fentanyl 50 mcg IV, Zofran 4 Mg IV, d aptomycin IV ECG Additional Comments: NSR, .heart rate 100 QTc 459 Code Status & VTE Plan Code Status DNR/DNI VTE Prophylaxis Plan VTE Prophylaxis will be ordered: Yes Supervising Physician Co-Signing Physician Notes Attending addendum: I have physically seen this patient, have supervised the ANTONETTE's activities, and agree with the H&P unless as otherwise noted. Assessment and Plan: The patient is a 64-year-old female with past medical history including insulin- dependent diabetes mellitus type 2, DVT, hypertension, HIV,'s suprapubic catheter, MRSA, left AKA, and TINO. She presented to the ED via EMS from [facility], due to persistent 10/10 leg pain, attributed to a fall that occurred 2 weeks ago. Evaluation in the emergency department included CT scans revealing a acute right clavicular fracture, chronic T12 and C3 fractures, and no other acute traumatic changes. Urinalysis suggested urinary tract infection, with likely associated sepsis, with lactate 2.9, increased heart rate and low blood pressure. She has a history of multidrug-resistant bacteria, and will be admitted for IV fluids and IV antibiotics. Sepsis due to UTI/immunocompromise state- Catheter associated HIV infection Placed on daptomycin IV, and meropenem IV to cover all previous multidrug- resistant infections regarding Proteus mirabilis, E. coli, Pseudomonas, Klebsiella pneumonia as noted. Patient reports history of MRSA, but no previous records confirming this. Will continue MRSA coverage with daptomycin until cultures are resulted Status post 1.5 L normal saline bolus in the ED Continue fluid cessation with additional 1 L normal saline bolus, then LR at 125 mL/h x 2 L. Follow urine cultures and sensitivity Follow-up blood culture and sensitivity Follow serial CBC with differential and BMP Status post fall/right clavicular fracture/right scalp hematoma/right leg pain- Lidoderm patch to clavicle Acetaminophen 1 g IV every 8 hours as needed for mild pain or fever Toradol 10 mg IV every 6 hours as needed moderate pain Morphine sulfate 2.4 mg IV every 3 hours as needed for moderate to severe pain Remaining orders and notations as noted PG Care Time/CCT Total # of Minutes Spent Total Time Spent with Patient: Total time spent is greater than 50% in coordination of care (as documented) at patient's floor/unit and/or counseling patient: Coding Level of Care Code 84218 INT INP/OBS CARE 375MIN Diagnoses Sepsis A41.9 Sepsis acute organ dysfunction status: without acute organ dysfunction Sepsis type: sepsis due to unspecified organism Immunocompromised D84.9 Complicated UTI (urinary tract infection) N39.0 Falls W19.XXXA Closed right clavicular fracture S42.001A Hematoma of right parietal scalp S00.03XA Right leg pain M79.604 (1) Sepsis Sepsis acute organ dysfunction status: without acute organ dysfunction Sepsis type: sepsis due to unspecified organism Qualified Code(s): A41.9 - Sepsis, unspecified organism
[2024-12-24] MEDS: SODIUM CHLORIDE 0.9% 1,000 ML IV SCH (00:20)
[2024-12-24] MEDS: clonazePAM 0.5 MG TAB PO STA (00:22)
[2024-12-24] MEDS: LIDOCAINE 5% 1 PATCH TD STA (00:23)
[2024-12-24] MEDS: MEROPENEM 500 MG in SYRINGE 0 ML IV STA (00:27)
[2024-12-24] MEDS: CEFEPIME 2000MG 2,000 MG/20 ML SYR IV STA (00:45)
[2024-12-24] MEDS: LACTATED RINGER'S 1,000 ML IV SCH (01:56)
[2024-12-24] MEDS ORDERED: GLUCAGON FOR INJ 1 MG VIAL SQ PRN (02:07)
[2024-12-24] MEDS ORDERED: GLUCOSE 40% GEL 15 GM TUBE PO PRN (02:07)
[2024-12-24] MEDS ORDERED: CARBOHYDRATES FOR HYPOGLYCEMIA PO PRN (02:07)
[2024-12-24] MEDS ORDERED: DEXTROSE 50% 50 ML SYRINGE IV PRN (02:07)
[2024-12-24] MEDS ORDERED: GLUCOSE 10 TAB/TUBE PO PRN (02:07)
[2024-12-24] MEDS ORDERED: NALOXONE HCL 0.4 MG/1 ML VIAL/CARP IV PRN (02:07)
[2024-12-24] MEDS ORDERED: LOPERAMIDE HCL 2 MG CAP PO PRN (02:07)
[2024-12-24] MEDS ORDERED: ONDANSETRON INJ 2 MG/ML 2 ML VIAL IV PRN (02:07)
[2024-12-24] MEDS: OPTIRAY 320 100ml IV ONE (02:09)
[2024-12-24] MEDS: CEFEPIME 2,000 MG/20 ML IV PUSH IV ONE (02:09)
[2024-12-24 05:53] LABS: Hematocrit (blood only) 29.8 % (37.0-47.0); Hemoglobin 10.1 g/dl (12.0-16.0); Immature Granulocytes # (auto) 0.03 K/uL (0.01-0.20); Immature Granulocytes % (auto) 0.4 %; Mean Corpuscular Hemoglobin 31.5 pg (25.0-34.0); Mean Corpuscular Volume 92.8 fL (80.0-100.0); Platelet Count 264 K/uL (130-400); RDW Standard Deviation 41.8 fL (36.4-46.3); Red Blood Count 3.21 M/uL (4.20-5.40); White Blood Count 6.85 K/ul (4.8-10.8)
[2024-12-24 06:06] LABS: Anion Gap 5.0 (3-11); Blood Urea Nitrogen 10.0 mg/dl (6-23); Calcium 8.4 mg/dl (8.6-10.3); Carbon Dioxide 26.0 mmol/L (21-32); Chloride 105.0 mmol/L (98-107); Creatinine Clr Calc Pharmacy 72.5 ml/min; Glucose 104.0 mg/dl (70-99(Fasting)); Magnesium 1.6 mg/dl (1.7-2.4); Potassium 4.3 mmol/L (3.5-5.1); Sodium 136.0 mmol/L (136-145)
[2024-12-24] MEDS: MEROPENEM 500 MG in SYRINGE 0 ML IV SCH ×2 (09:09→14:27)
[2024-12-24] MEDS: busPIRone 5 MG TAB PO SCH (09:11)
[2024-12-24] MEDS: ASPIRIN 81 MG ECTAB PO SCH (09:12)
[2024-12-24] MEDS: MAGNESIUM OXIDE 400 MG TAB PO SCH (09:13)
[2024-12-24] MEDS: risperiDONE 0.25 MG TAB PO SCH ×2 (09:13→14:25)
[2024-12-24] MEDS: TAMSULOSIN HCL 0.4 MG CAP PO SCH (09:14)
[2024-12-24] MEDS: SODIUM CHLORIDE 1 GM TABLET PO SCH (09:14)
[2024-12-24] MEDS: INSULIN ASPART PER UNIT CHARGE SC SCH (09:17)
[2024-12-24] MEDS: ACETAMINOPHEN 325 MG TAB PO PRN (09:29)
[2024-12-24] MEDS: POTASSIUM CHLORIDE CRTAB 20 MEQ TABCR PO SCH (09:29)
[2024-12-24] MEDS: clonazePAM 0.5 MG TAB PO SCH (09:29)
[2024-12-24] MEDS: LANTUS PER UNIT CHARGE SQ SCH (09:30)
[2024-12-24] MEDS: MAGNESIUM SULFATE / D5W 1 GM/100 ML BAG IV ONE (11:03)
[2024-12-24] MEDS: REMOVE LIDODERM PATCH ONE (12:54)
[2024-12-24] MEDS: KETOROLAC TROMETHAMINE 15 MG/ML VIAL IV PRN (12:55)
--- NOTE | 2024-12-24 18:37 | Hospitalist Progress Note ---
Date of Service December 24, 2024 Assessment & Plan (1) Sepsis: (2) Immunocompromised: (3) Complicated UTI (urinary tract infection): (4) Closed right clavicular fracture: Plan Patient is a 64-year-old female with a past medical history of insulin-dependent type 2 DM, DVT, HTN, HIV, suprapubic catheter, MRSA, left AKA, TINO/depression. Patient presented via EMS from [facility] due to a fall 2 weeks ago resulting in persistent right knee pain. Workup in the ED revealed acute right clavicle fracture, subacute T12 vertebral compression fracture, and chronic C3 vertebral fracture. Otherwise diagnostic imaging negative for any acute traumatic changes. Patient was found to have a UTI and concern for sepsis with lactate 2.9, tachycardia, hypotension. She does have a history of multiple resistant bacteria and was admitted for IV fluids and IV antibiotics. #UTI/sepsis/immunocompromised status with HIV-Villela catheter associated catheter associated. Tachycardic (HR 101), hypotensive (BP 90/75), lactate 2.9 -> 1.5, no leukocytosis, procal negative. UA appears positive for infection, however urine culture growing mixed organisms. Blood cultures no growth to date. Vital signs have now improved after IV fluid resuscitation. There was a question by the ED provider about her having a right foot wound infection and cellulitis- there is no evidence of this by history or on examination. -Continue IV daptomycin and meropenem given history of resistant organisms -Repeat urine culture although may be sterile now that she has been on antibiotics - follow blood and urine cultures - Trend CBC and BMP - Consider infectious disease consultation -Patient just had her suprapubic catheter exchanged 1 week prior, but in the setting of infection, should consult urology on Wednesday to exchange suprapubic catheter - Continue home Flomax #fall/right clavicle fracture/right scalp hematoma/right leg pain -cyst pain day fall from wheelchair to ground 2 weeks prior to admission, head strike on ground, no loss of consciousness. Diagnostic imaging revealed acute right distal clavicle fracture, right scalp hematoma. Otherwise diagnostic imaging negative for any acute traumatic changes. H&H stable. With pain in the right knee with contusion but no fracture seen on x-rays. She does have severe osteopenia on x-rays Defer PT/OT consults as patient is unable to bear weight at baseline and is wheelchair-bound - lidoderm patch to clavicle, sling for clavicle/[id number] with orthopedics as an outpatient pain control with Tylenol prn, Toradol prn, and morphine 2/4 (for pain not relieved by #1 and 2) -Defer to PCP for treatment for osteoporosis #back pain/chronic fractures - Acute on chronic back pain. Diagnostic imaging revealed subacute to chronic 30-40% T12 anterior wedge compression fracture and chronic C3 fracture. Pain control as above - Note that there is no ortho spine coverage over the weekend however Dr. Nguyen will be here Wednesday could consider consult if patient is still admitted at that time if desired #hyponatremia -sodium 134 on admission and now improved to 136. 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 twice daily continue home supplement. #Hypomagnesemia-magnesium 1.6 Replaced with 1 g IV magnesium sulfate - Follow magnesium level in the morning #HTNhypotensive with sepsis on admission and blood pressures are now improved - Continue holding home propranolol and losartan, but should likely resume them on 12/25 if BPs remain stable #HIVimmunocompromised status, patient stated she has been compliant on her home medications. Does not follow with infectious disease-follows with PCP at the [facility]. Last CD4 count in 09/2024 was 735. - Continue Tivicay and descovy -Check CD4 count and HIV RNA PCR quant in the morning #Type II DMSSI ordered. Continue home Lantus to 15 units every morning. Hold metformin. #HTNhold statin with daptomycin use #Mental healthcontinue buspirone, clonazepam, duloxetine, risperidone, and Luvox VTE ppx: SCD right leg, add Lovenox SQ Dispo: Continued stay PCU, but can likely downgrade to medical/surgical unit in 1 day if BPs remain stable. [facility]. Wheelchair-bound, does not need PT/OT riki's Admission and Anticipated Discharge Date Admission Date: December 23, 2024 Subjective patient reports she has had pain in the right knee since the fall from the wheelchair. Otherwise just does not quite feel like herself-feels sort of "out of it." Telemetry with sinus tachycardia normal sinus rhythm with rates in the 90s to 100s Physical Exam Constitutional: WD/WN, vitals as above Eyes: + anicteric sclerae ENMT: Poor dentition Right temporal region and cheek with ecchymosis dark purple Respiratory: normal respiratory effort, lungs clear to auscultation Cardiovascular: Rate/Rhythm: regular rate and regular rhythm Heart Sounds: no murmur Extremities: no edema Gastrointestinal (Abdomen): normal bowel sounds, soft, nontender, no hepatosplenomegaly Inspection/Auscultation: + abdomen abnormal to inspection (Suprapubic catheter in place draining clear yellow urine) Musculoskeletal: Extremities: + extremities abnormal to inspection (Left AKA) Knee: + knee abnormal to inspection (Right knee deformity, decreased ROM 0-90, ecchymosis anterior knee) Skin: 2 small superficial wounds on right ante rior leg and 1 small scabbed over superficial wound on plantar surface right foot, no surrounding erythema or drainage from either wound Psychiatric: A+Ox3, euthymic affect Results & Data Results & Data Vital Signs (Past 12 Hours) Vital Signs Temp Pulse Pulse Resp BP Pulse Ox O2 Del Method 12/24/24 16:08 36.9 C 78 16 120/78 96 Room Air 12/24/24 15:00 87 12/24/24 11:01 36.9 C 92 H 20 105/72 96 Room Air 12/24/24 08:00 88 12/24/24 07:37 37.2 C 94 H 20 115/79 97 Room Air Laboratory Results CBC, BMP, lactate, magnesium, procalcitonin, blood cultures, urine culture reviewed PG Care Time/CCT Total # of Minutes Spent Total Time Spent with Patient: Total time spent is greater than 50% in coordination of care (as documented) at patient's floor/unit and/or counseling patient: Coding Level of Care Code 07052 SUB INP/OBS CARE 2/35MIN Diagnoses Sepsis A41.9 Immunocompromised D84.9 Complicated UTI (urinary tract infection) N39.0 Closed right clavicular fracture S42.001A Encounter type: initial encounter (4) Closed right clavicular fracture Encounter type: initial encounter
[2024-12-24] MEDS ORDERED: Nursing to Pharmacy Communication SCH (19:15)
--- NOTE | 2024-12-24 19:40 | Electrocardiogram Report ---
Test Reason : Blood Pressure : */* mmHG Vent. Rate : 100 BPM Atrial Rate : 100 BPM P-R Int : 158 ms QRS Dur : 88 ms QT Int : 356 ms P-R-T Axes : 28 12 38 degrees QTcB Int : 459 ms Normal sinus rhythm Cannot rule out Anterior infarct , age undetermined Abnormal ECG When compared with ECG of 23-May-2021 00:09, Minimal criteria for Anterior infarct are now Present Confirmed by Rk Garcia ([id number]) on 12/24/2024 7:40:19 PM Referred By: [facility] Confirmed By: Rk Garcia
[2024-12-24] MEDS ORDERED: busPIRone 5 MG TAB PO SCH (21:00)
[2024-12-24] MEDS ORDERED: ATORVASTATIN 20 MG TAB PO SCH (21:00)
[2024-12-24] MEDS ORDERED: DOLUTEGRAVIR SODIUM 50 MG TAB PO SCH (21:00)
[2024-12-24] MEDS: DAPTOmycin 500 MG in SYRINGE 0 ML IV SCH (21:16)
[2024-12-24] MEDS: MELATONIN 3 MG TAB PO PRN (21:16)
[2024-12-24] MEDS: DOLUTEGRAVIR SODIUM 50 MG TAB PO SCH (21:17)
[2024-12-24] MEDS: ENOXAPARIN INJ 40 MG/0.4 ML SYR SQ SCH (21:18)
[2024-12-25 06:16] LABS: Hematocrit (blood only) 33.0 % (37.0-47.0); Hemoglobin 10.8 g/dl (12.0-16.0); Immature Granulocytes # (auto) 0.02 K/uL (0.01-0.20); Immature Granulocytes % (auto) 0.3 %; Mean Corpuscular Hemoglobin 29.9 pg (25.0-34.0); Mean Corpuscular Volume 91.4 fL (80.0-100.0); Platelet Count 281 K/uL (130-400); RDW Standard Deviation 40.7 fL (36.4-46.3); Red Blood Count 3.61 M/uL (4.20-5.40); White Blood Count 7.04 K/ul (4.8-10.8)
[2024-12-25 06:35] LABS: Anion Gap 7.0 (3-11); Blood Urea Nitrogen 13.0 mg/dl (6-23); Calcium 8.7 mg/dl (8.6-10.3); Carbon Dioxide 28.0 mmol/L (21-32); Chloride 101.0 mmol/L (98-107); Creatinine Clr Calc Pharmacy 59.8 ml/min; Glucose 104.0 mg/dl (70-99(Fasting)); Potassium 4.3 mmol/L (3.5-5.1); Sodium 136.0 mmol/L (136-145)
[2024-12-25] MEDS: MoRPHine SULFATE 4 MG/ML 1 ML CARP\\VIAL IV PRN ×2 (07:32→13:09)
--- NOTE | 2024-12-25 16:00 | Hospitalist Progress Note ---
Date of Service December 25, 2024 Assessment & Plan (1) Sepsis: (2) Immunocompromised: (3) Complicated UTI (urinary tract infection): (4) Closed right clavicular fracture: Plan Patient is a 64-year-old female with a past medical history of insulin-dependent type 2 DM, DVT, HTN, HIV, suprapubic catheter, MRSA, left AKA, TINO/depression. Patient presented via EMS from [place] care due to a fall 2 weeks ago resulting in persistent right knee pain. Workup in the ED revealed acute right clavicle fracture, subacute T12 vertebral compression fracture, and chronic C3 vertebral fracture. Otherwise diagnostic imaging negative for any acute traumatic changes. Patient was found to have a UTI and concern for sepsis with lactate 2.9, tachycardia, hypotension. She does have a history of multiple resistant bacteria and was admitted for IV fluids and IV antibiotics. #UTI/sepsis/immunocompromised status with HIV-[place] catheter associated catheter associated. Tachycardic (HR 101), hypotensive (BP 90/75), lactate 2.9 -> 1.5, no leukocytosis, procal negative. UA appears positive for infection, however urine culture growing mixed organisms. Blood cultures no growth to date. Vital signs have now improved after IV fluid resuscitation. There was a question by the ED provider about her having a right foot wound infection and cellulitis- there is no evidence of this by history or on examination. -Continue IV daptomycin and meropenem given history of resistant organisms -Repeat urine culture although may be sterile now that she has been on antibiotics - follow blood and urine cultures - Trend CBC and BMP - Consider infectious disease consultation -Patient just had her suprapubic catheter exchanged 1 week prior, but in the setting of infection, should consult urology on Wednesday to exchange suprapubic catheter - Continue home Flomax - Only pinpoint growth noted on original urine culture reintubation/replating completed. #fall/right clavicle fracture/right scalp hematoma/right leg pain -cyst pain day fall from wheelchair to ground 2 weeks prior to admission, head strike on ground, no loss of consciousness. Diagnostic imaging revealed acute right distal clavicle fracture, right scalp hematoma. Otherwise diagnostic imaging negative for any acute traumatic changes. H&H stable. With pain in the right knee with contusion but no fracture seen on x-rays. She does have severe osteopenia on x-rays Defer PT/OT consults as patient is unable to bear weight at baseline and is wheelchair-bound - lidoderm patch to clavicle, sling for clavicle/[id number] with orthopedics as an outpatient pain control with Tylenol prn, Toradol prn, and morphine 2/4 (for pain not relieved by #1 and 2) -Defer to PCP for treatment for osteoporosis - Managed at this time, no changes #back pain/chronic fractures - Acute on chronic back pain. Diagnostic imaging revealed subacute to chronic 30-40% T12 anterior wedge compression fracture and chronic C3 fracture. Pain control as above - Note that there is no ortho spine coverage over the weekend however Dr. Nguyen will be here Wednesday could consider consult if patient is still admitted at that time if desired #hyponatremia -sodium 134 on admission and now improved to 136. 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 twice daily continue home supplement. - within normal limits #Hypomagnesemia-magnesium 1.6 Replaced with 1 g IV magnesium sulfate - Follow magnesium level in the morning - recheck in a.m. #HTNhypotensive with sepsis on admission and blood pressures are now improved - Continue holding home propranolol and losartan, but should likely resume them on 12/25 if BPs remain stable #HIVimmunocompromised status, patient stated she has been compliant on her home medications. Does not follow with infectious disease-follows with PCP at the [facility]. Last CD4 count in 09/2024 was 735. - Continue Tivicay and descovy -Check CD4 count and HIV RNA PCR quant in the morning - awaiting arrival of disco V from facility. Hold Tivicay until it arrives #Type II DMSSI ordered. Continue home Lantus to 15 units every morning. Hold metformin. #HTNhold statin with daptomycin use #Mental healthcontinue buspirone, clonazepam, duloxetine, risperidone, and Luvox VTE ppx: SCD right leg, add Lovenox SQ Dispo: BP stable downgrade to telemetry Admission and Anticipated Discharge Date Admission Date: December 23, 2024 Subjective still refuel reports feeling "not quite like her normal self" but very vague in terms of what that means. Still having pain on the right side from her fall. Seems to be currently managed appropriately. No new events or concerns per patient. Nursing staff reports good sleep. Eating well. No problems with eliminations. Physical Exam Physical Exam: The patient is awake, alert and oriented 3, well developed and well nourished, in no acute distress. Non-toxic appearing. HEENT- EOMI, mucous membranes dry. Hearing grossly intact. Ecchymosis to right scalp. Heart-normal S1 and S2. No murmurs, rubs or gallops. Lungs-clear bilaterally, no respiratory distress, no accessory muscle use. Abdomen-normal bowel sounds and soft. No ascites noted. Non-tender. Extremities- no clubbing, cyanosis, or edema. Left AKA. Psychiatric-normal affect. Results & Data Results & Data Vital Signs (Past 12 Hours) Vital Signs Temp Pulse Pulse Resp BP Pulse Ox O2 Del Method 12/25/24 15:24 36.6 C 71 18 118/80 95 Room Air 12/25/24 14:16 88 12/25/24 11:39 36.6 C 78 18 112/73 97 Room Air 12/25/24 08:00 88 12/25/24 07:19 36.7 C 82 18 107/61 96 Room Air Laboratory Results 12/24/24 18:40 Urine Culture - Preliminary Urine,Indwelling Cath Pin-point growth present, reincubating. 12/23/24 21:29 Aerobic Blood Culture - Preliminary Blood No growth in Aerobic bottle after 24 hours. Anaerobic Blood Culture - Preliminary No growth in Anaerobic bottle after 24 hours. 12/23/24 21:31 Aerobic Blood Culture - Preliminary Blood No growth in Aerobic bottle after 24 hours. Anaerobic Blood Culture - Preliminary No growth in Anaerobic bottle after 24 hours. 12/23/24 21:20 Urine Culture - Final Urine,Straight Cath More than three types of organisms present, all high counts. Repeat collection recommended. No further identifications or sensitivities to follow. 12/25/24 12/25/24 12/25/24 12:03 08:04 05:49 WBC 7.04 RBC 3.61 L Hgb 10.8 L Hct 33.0 L MCV 91.4 MCH 29.9 MCHC 32.7 RDW Std Deviation 40.7 RDW Coeff of [place] 12.1 Plt Count 281 MPV 8.7 L Immature Gran % (Auto) 0.3 Neut % (Auto) 61.1 Lymph % (Auto) 29.8 [place] % (Auto) 5.3 Eos % (Auto) 2.8 Baso % (Auto) 0.7 Neut # (Auto) 4.30 Lymph # (Auto) 2.10 [place] # (Auto) 0.37 Eos # (Auto) 0.20 Baso # (Auto) 0.05 Immature Gran # (Auto) 0.02 Sodium 136 Potassium 4.3 Chloride 101 Carbon Dioxide 28 Anion Gap 7 BUN 13 Creatinine 0.93 Est Cr Clr Drug Dosing 59.8 eGFR 69.06 BUN/Creatinine Ratio 14.0 Glucose 104 H POC Glucose 119 H 110 H Calcium 8.7 Nasal Screen MRSA (PCR) 12/24/24 12/24/24 12/24/24 21:30 20:38 16:34 WBC RBC Hgb Hct MCV MCH MCHC RDW Std Deviation RDW Coeff of [place] Plt Count MPV Immature Gran % (Auto) Neut % (Auto) Lymph % (Auto) [place] % (Auto) Eos % (Auto) Baso % (Auto) Neut # (Auto) Lymph # (Auto) [place] # (Auto) Eos # (Auto) Baso # (Auto) Immature Gran # (Auto) Sodium Potassium Chloride Carbon Dioxide Anion Gap BUN Creatinine Est Cr Clr Drug Dosing eGFR BUN/Creatinine Ratio Glucose POC Glucose 97 71 Calcium Nasal Screen MRSA (PCR) Positive A PG Care Time/CCT Total # of Minutes Spent Total Time Spent with Patient: Total time spent is greater than 50% in coordination of care (as documented) at patient's floor/unit and/or counseling patient: Coding Level of Care Code 87820 SUB INP/OBS CARE 2/35MIN Diagnoses Sepsis A41.9 Immunocompromised D84.9 Complicated UTI (urinary tract infection) N39.0 Closed right clavicular fracture S42.001A Encounter type: initial encounter (4) Closed right clavicular fracture Encounter type: initial encounter
[2024-12-26 06:04] LABS: Hematocrit (blood only) 27.5 % (37.0-47.0); Hemoglobin 9.5 g/dl (12.0-16.0); Immature Granulocytes # (auto) 0.02 K/uL (0.01-0.20); Immature Granulocytes % (auto) 0.3 %; Mean Corpuscular Hemoglobin 31.1 pg (25.0-34.0); Mean Corpuscular Volume 90.2 fL (80.0-100.0); Platelet Count 262 K/uL (130-400); RDW Standard Deviation 39.2 fL (36.4-46.3); Red Blood Count 3.05 M/uL (4.20-5.40); White Blood Count 6.62 K/ul (4.8-10.8)
[2024-12-26 06:27] LABS: Alanine Aminotransferase 5.0 U/L (7-52); Albumin Globulin Ratio 1.2 (0.9-2); Albumin Level 3.3 gm/dl (3.4-5.0); Alkaline Phosphatase 72.0 U/L (34-104); Anion Gap 6.0 (3-11); Bilirubin,Total 0.5 mg/dl (0.2-1.0); Blood Urea Nitrogen 19.0 mg/dl (6-23); Calcium 8.2 mg/dl (8.6-10.3); Carbon Dioxide 27.0 mmol/L (21-32); Chloride 92.0 mmol/L (98-107); Creatinine Clr Calc Pharmacy 71.8 ml/min; Globulin 2.8 gm/dl (2.5-4.0); Glucose 90.0 mg/dl (70-99(Fasting)); Magnesium 1.7 mg/dl (1.7-2.4); Potassium 3.9 mmol/L (3.5-5.1); Sodium 125.0 mmol/L (136-145); Total Protein 6.1 gm/dl (6.0-8.3)
[2024-12-26] MEDS: DOCUSATE SODIUM 100 MG CAP PO PRN (08:46)
[2024-12-26] MEDS: SODIUM CHLORIDE 1 GM TABLET PO SCH (08:47)
--- NOTE | 2024-12-26 16:24 | Hospitalist Progress Note ---
Date of Service December 26, 2024 Assessment & Plan (1) Sepsis: (2) Immunocompromised: (3) Complicated UTI (urinary tract infection): (4) Falls: (5) Closed right clavicular fracture: (6) Hematoma of right parietal scalp: (7) Right leg pain: Plan Patient is a 64-year-old female with a past medical history of insulin-dependent type 2 DM, DVT, HTN, HIV, superior pubic catheter, MRSA, left AKA, TINO. Patient presented via EMS from [facility] due to a fall 2 weeks ago resulting in 10 out of 10 persistent leg pain. Workup in the ED revealed acute right clavicle fracture, chronic T12 and C3 fractures, otherwise diagnostic imaging negative for any acute traumatic changes. Patient was found to have a UTI and concern for sepsis with lactate 2.9, tachycardia, hypotension. She does have a history of multiple resistant bacteria and is being admitted for IV fluids and IV antibi otics. #UTI/sepsis/immunocompromised status - catheter associated, HIV infection. Tachycardic (HR 101), hypotensive (BP 90/75), lactate 2.9 -> 1.5, no leukocytosis, procal negative. UA appears positive for infection. - ABX coverage with daptomycin and meropenem - history of positive cultures for Proteus mirabilis (resistant to ampicillin, quinolones, Bactrim), E. coli (resistant to Bactrim), pansensitive Pseudomonas, Klebsiella pneumoniae (intermediate to nitro) - noted history of MRSA on EMR however no previous cultures recorded endorsing this - will provide MRSA coverage until culture resulted - hx of red many syndrome with Vanco - allergy to cephalosporins - Sepsis fluid bolus for actual body weight = 2454.00 - given 1.5L NSS in ED - Continue fluid resuscitation with additional 1L bolus of NSS followed by LR at 125 mL/hour x 2 L - follow blood and urine cultures - Trend CBC and BMP, stable to improving at this time #psychogenic polydipsia #hyponatremia - see nursing assessment, new diagnosis, uncontrolled, likely severe - 1500 cc fluid restriction placed for the interim. Low-dose salt supplementation in the interim - a.m. BMP tomorrow #fall/right clavicle fracture/right scalp hematoma/right leg pain - fall from wheelchair to ground, head strike on ground, no loss of consciousness. Diagnostic imaging revealed acute right distal clavicle fracture, right scalp hematoma. Otherwise diagnostic imaging negative for any acute traumatic changes. H&H stable. Defer PT/OT consults as patient is unable to bear weight at baseline and is wheelchair-bound - lidoderm patch to clavicle pain control with Tylenol prn, Toradol prn, and morphine 2/4 (for pain not relieved by #1 and 2) - sling ordered - refer to ortho in outpatient setting for clavicle fx #back pain/chronic fractures - Acute on chronic back pain. Diagnostic imaging revealed subacute to chronic 30-40% T12 anterior wedge compression fracture and chronic C3 fracture. Pain control as above - Note that there is no orthospine coverage over the weekend however Dr. Nguyen will be here Wednesday could consider consult if patient is still admitted at that time #HTNhypotensive with sepsis above. Holding propranolol and losartan #HIVimmunocompromise status, patient stated she has been compliant on her home medications. Continue Tivicay and descovy. #Type II DMSSI ordered. Continue home Lantus to 15 units every morning. Hold metformin. #HTNhold statin with daptomycin use #Mental healthcontinue buspirone, clonazepam, duloxetine, risperidone VTE ppx: SCD right leg, defer chemical with scalp hematoma - at baseline ambulation, hx of DVT Dispo: PCU Admission and Anticipated Discharge Date Admission Date: December 23, 2024 Subjective reports doing okay this morning. Persistent pain in the right knee no new or different pain no change in the character or distribution. Has been using Tylenol to good effect. In the middle of the day after my visit it came to nursing attention she has been drinking a lot of water as well as diet sodas. After adding up the overall total it seems that she has taken it about 6 L. otherwise she states her appetite has been okay. No problem with eliminations. No new events or concerns otherwise Physical Exam Physical Exam: The patient is awake, alert and oriented 3, well developed and well nourished, in no acute distress. Non-toxic appearing. HEENT- EOMI, mucous membranes dry. Hearing grossly intact. Ecchymosis to right scalp. Heart-normal S1 and S2. 3/6 holosystolic ESTEFANI throughout the precordium, rubs or gallops. Lungs-clear bilaterally, no respiratory distress, no accessory muscle use. Abdomen-normal bowel sounds and soft. No ascites noted. Non-tender. Extremities- no clubbing, cyanosis, or edema. Left AKA. Psychiatric-normal affect. Results & Data Results & Data Vital Signs (Past 12 Hours) Vital Signs Temp Pulse Resp BP Pulse Ox O2 Del Method 12/26/24 15:34 36.6 C 73 18 130/82 98 Room Air 12/26/24 11:28 36.8 C 79 18 112/73 97 Room Air 12/26/24 07:30 36.6 C 76 18 119/79 96 Room Air Laboratory Results 12/24/24 18:40 Urine Culture - Final Urine,Indwelling Cath Gram negative bacilli 12/23/24 21:29 Aerobic Blood Culture - Preliminary Blood No growth in Aerobic bottle after 48 hours. Anaerobic Blood Culture - Preliminary No growth in Anaerobic bottle after 48 hours. 12/23/24 21:31 Aerobic Blood Culture - Preliminary Blood No growth in Aerobic bottle after 48 hours. Anaerobic Blood Culture - Preliminary No growth in Anaerobic bottle after 48 hours. 12/26/24 12/26/24 12/26/24 15:09 11:50 07:55 WBC RBC Hgb Hct MCV MCH MCHC RDW Std Deviation RDW Coeff of [place] Plt Count MPV Immature Gran % (Auto) Neut % (Auto) Lymph % (Auto) [place] % (Auto) Eos % (Auto) Baso % (Auto) Neut # (Auto) Lymph # (Auto) [place] # (Auto) Eos # (Auto) Baso # (Auto) Immature Gran # (Auto) Sodium 121 L Potassium Chloride Carbon Dioxide Anion Gap BUN Creatinine Est Cr Clr Drug Dosing eGFR BUN/Creatinine Ratio Glucose POC Glucose 133 H 105 H Calcium Magnesium Total Bilirubin AST ALT Alkaline Phosphatase C-Reactive Protein Total Protein Albumin Globulin Albumin/Globulin Ratio Procalcitonin 12/26/24 12/25/24 12/25/24 05:31 20:56 16:46 WBC 6.62 RBC 3.05 L Hgb 9.5 L Hct 27.5 L MCV 90.2 MCH 31.1 MCHC 34.5 RDW Std Deviation 39.2 RDW Coeff of [place] 11.9 Plt Count 262 MPV 8.8 L Immature Gran % (Auto) 0.3 Neut % (Auto) 51.0 Lymph % (Auto) 39.6 [place] % (Auto) 5.3 Eos % (Auto) 3.2 Baso % (Auto) 0.6 Neut # (Auto) 3.38 Lymph # (Auto) 2.62 [place] # (Auto) 0.35 Eos # (Auto) 0.21 Baso # (Auto) 0.04 Immature Gran # (Auto) 0.02 Sodium 125 L D Potassium 3.9 Chloride 92 L Carbon Dioxide 27 Anion Gap 6 BUN 19 Creatinine 0.78 Est Cr Clr Drug Dosing 71.8 eGFR 85.29 BUN/Creatinine Ratio 24.4 H Glucose 90 POC Glucose 123 H 105 H Calcium 8.2 L Magnesium 1.7 Total Bilirubin 0.5 AST 14 ALT 5 L Alkaline Phosphatase 72 C-Reactive Protein 0.50 Total Protein 6.1 Albumin 3.3 L Globulin 2.8 Albumin/Globulin Ratio 1.2 Procalcitonin < 0.02 PG Care Time/CCT Total # of Minutes Spent Total Time Spent with Patient: Total time spent is greater than 50% in coordination of care (as documented) at patient's floor/unit and/or counseling patient: Coding Level of Care Code 72193 SUB INP/OBS CARE 3/50MIN Diagnoses Sepsis A41.9 Immunocompromised D84.9 Complicated UTI (urinary tract infection) N39.0 Falls W19.XXXA Encounter type: initial encounter Closed right clavicular fracture S42.001A Encounter type: initial encounter Hematoma of right parietal scalp S00.03XA Encounter type: initial encounter Right leg pain M79.604 (4) Falls Encounter type: initial encounter Qualified Code(s): W19.XXXA - Unspecified fall, initial encounter (5) Closed right clavicular fracture Encounter type: initial encounter (6) Hematoma of right parietal scalp Encounter type: initial encounter Qualified Code(s): S00.03XA - Contusion of scalp, initial encounter
[2024-12-26 20:39] LABS: Anion Gap 6.0 (3-11); Blood Urea Nitrogen 19.0 mg/dl (6-23); Calcium 8.2 mg/dl (8.6-10.3); Carbon Dioxide 28.0 mmol/L (21-32); Chloride 93.0 mmol/L (98-107); Creatinine Clr Calc Pharmacy 54.9 ml/min; Glucose 129.0 mg/dl (70-99(Fasting)); Potassium 4.1 mmol/L (3.5-5.1); Sodium 127.0 mmol/L (136-145)
[2024-12-27] MEDS: POLYETHYLENE (MIRALAX) 17 GM PACK PO PRN (08:42)
[2024-12-27 08:49] LABS: Hematocrit (blood only) 31.0 % (37.0-47.0); Hemoglobin 10.3 g/dl (12.0-16.0); Immature Granulocytes # (auto) 0.01 K/uL (0.01-0.20); Immature Granulocytes % (auto) 0.2 %; Mean Corpuscular Hemoglobin 30.3 pg (25.0-34.0); Mean Corpuscular Volume 91.2 fL (80.0-100.0); Platelet Count 275 K/uL (130-400); RDW Standard Deviation 40.4 fL (36.4-46.3); Red Blood Count 3.40 M/uL (4.20-5.40); White Blood Count 4.66 K/ul (4.8-10.8)
[2024-12-27 09:08] LABS: Anion Gap 4.0 (3-11); Blood Urea Nitrogen 21.0 mg/dl (6-23); Calcium 8.6 mg/dl (8.6-10.3); Carbon Dioxide 30.0 mmol/L (21-32); Chloride 101.0 mmol/L (98-107); Creatinine Clr Calc Pharmacy 65.5 ml/min; Glucose 97.0 mg/dl (70-99(Fasting)); Potassium 4.4 mmol/L (3.5-5.1); Sodium 135.0 mmol/L (136-145)
--- NOTE | 2024-12-27 13:40 | Hospitalist Progress Note ---
Date of Service December 27, 2024 Assessment & Plan (1) Sepsis: (2) Immunocompromised: (3) Complicated UTI (urinary tract infection): (4) Falls: (5) Closed right clavicular fracture: (6) Hematoma of right parietal scalp: (7) Right leg pain: Plan Patient is a 64-year-old female with a past medical history of insulin-dependent type 2 DM, DVT, HTN, HIV, superior pubic catheter, MRSA, left AKA, TINO. Patient presented via EMS from [place] care due to a fall 2 weeks ago resulting in 10 out of 10 persistent leg pain. Workup in the ED revealed acute right clavicle fracture, chronic T12 and C3 fractures, otherwise diagnostic imaging negative for any acute traumatic changes. Patient was found to have a UTI and concern for sepsis with lactate 2.9, tachycardia, hypotension. She does have a history of multiple resistant bacteria and is being admitted for IV fluids and IV antibi otics. #UTI/sepsis/immunocompromised status - catheter associated, HIV infection. Tachycardic (HR 101), hypotensive (BP 90/75), lactate 2.9 -> 1.5, no leukocytosis, procal negative. UA appears positive for infection. - ABX coverage with daptomycin and meropenem - history of positive cultures for Proteus mirabilis (resistant to ampicillin, quinolones, Bactrim), E. coli (resistant to Bactrim), pansensitive Pseudomonas, Klebsiella pneumoniae (intermediate to nitro) - noted history of MRSA on EMR however no previous cultures recorded endorsing this - will provide MRSA coverage until culture resulted - hx of red many syndrome with Vanco - allergy to cephalosporins - Sepsis fluid bolus for actual body weight = 2454.00 - given 1.5L NSS in ED - Continue fluid resuscitation with additional 1L bolus of NSS followed by LR at 125 mL/hour x 2 L - follow blood and urine cultures - Trend CBC and BMP, stable to improving at this time - urine culture with 5000 gram-negative bacilli, will stop daptomycin #psychogenic polydipsia #hyponatremia - see nursing assessment, new diagnosis, uncontrolled, likely severe - 1500 cc fluid restriction placed for the interim. Low-dose salt supplementation in the interim - doing okay with fluid restriction, still not resovled, sodium level improving as expected, will continue to monitor on a daily basis #fall/right clavicle fracture/right scalp hematoma/right leg pain - fall from wheelchair to ground, head strike on ground, no loss of consciousness. Diagnostic imaging revealed acute right distal clavicle fracture, right scalp hematoma. Otherwise diagnostic imaging negative for any acute traumatic changes. H&H stable. Defer PT/OT consults as patient is unable to bear weight at baseline and is wheelchair-bound - lidoderm patch to clavicle pain control with Tylenol prn, Toradol prn, and morphine 2/4 (for pain not relieved by #1 and 2) - sling ordered - refer to ortho in outpatient setting for clavicle fx #back pain/chronic fractures - Acute on chronic back pain. Diagnostic imaging revealed subacute to chronic 30-40% T12 anterior wedge compression fracture and chronic C3 fracture. Pain control as above - Note that there is no orthospine coverage over the weekend however Dr. Nguyen will be here Wednesday could consider consult if patient is still admitted at that time #HTNhypotensive with sepsis above. Holding propranolol and losartan #HIVimmunocompromise status, patient stated she has been compliant on her home medications. Continue Tivicay and descovy. #Type II DMSSI ordered. Continue home Lantus to 15 units every morning. Hold metformin. #HTNhold statin with daptomycin use #Mental healthcontinue buspirone, clonazepam, duloxetine, risperidone VTE ppx: SCD right leg, defer chemical with scalp hematoma - at baseline ambulation, hx of DVT Dispo: PCU Admission and Anticipated Discharge Date Admission Date: December 23, 2024 Subjective no new complaints or concerns this morning. She has been a little bit irritated with the decrease in fluids because she is quite thirsty but otherwise tolerating fine. Eating a good breakfast no problem with bowel or bladder function. Pain in the knee is improving but still present. No new events or concerns per patient Physical Exam Physical Exam: The patient is awake, alert and oriented 3, well developed and well nourished, in no acute distress. Non-toxic appearing. HEENT- EOMI, mucous membranes dry. Hearing grossly intact. Ecchymosis to right scalp. Heart-normal S1 and S2. 3/6 holosystolic ESTEFANI throughout the precordium, rubs or gallops. Lungs-clear bilaterally, no respiratory distress, no accessory muscle use. Abdomen-normal bowel sounds and soft. No ascites noted. Non-tender. Extremities- no clubbing, cyanosis, or edema. Left AKA. Psychiatric-normal affect. Results & Data Results & Data Vital Signs (Past 12 Hours) Vital Signs Temp Pulse Pulse Resp BP Pulse Ox O2 Del Method 12/27/24 11:14 36.6 C 82 18 87/54 L 96 Room Air 12/27/24 07:34 36.6 C 76 18 99/66 L 94 Room Air 12/27/24 07:10 83 12/27/24 02:12 36.7 C 75 16 95/65 L 95 Room Air Laboratory Results 12/24/24 18:40 Urine Culture - Final Urine,Indwelling Cath Gram negative bacilli 12/27/24 12/27/24 12/27/24 12:33 12:03 08:24 WBC 4.66 L RBC 3.40 L Hgb 10.3 L Hct 31.0 L MCV 91.2 MCH 30.3 MCHC 33.2 RDW Std Deviation 40.4 RDW Coeff of [place] 12.2 Plt Count 275 MPV 8.6 L Immature Gran % (Auto) 0.2 Neut % (Auto) 52.1 Lymph % (Auto) 37.6 [place] % (Auto) 6.2 Eos % (Auto) 2.8 Baso % (Auto) 1.1 Neut # (Auto) 2.43 Lymph # (Auto) 1.75 [place] # (Auto) 0.29 Eos # (Auto) 0.13 Baso # (Auto) 0.05 Immature Gran # (Auto) 0.01 Sodium 135 L 135 L Potassium 4.4 Chloride 101 Carbon Dioxide 30 Anion Gap 4 BUN 21 Creatinine 0.86 Est Cr Clr Drug Dosing 65.5 eGFR 75.86 BUN/Creatinine Ratio 24.4 H Glucose 97 POC Glucose 132 H Calcium 8.6 C-Reactive Protein 0.57 H 12/27/24 12/26/24 12/26/24 07:58 20:34 20:00 WBC RBC Hgb Hct MCV MCH MCHC RDW Std Deviation RDW Coeff of [place] Plt Count MPV Immature Gran % (Auto) Neut % (Auto) Lymph % (Auto) [place] % (Auto) Eos % (Auto) Baso % (Auto) Neut # (Auto) Lymph # (Auto) [place] # (Auto) Eos # (Auto) Baso # (Auto) Immature Gran # (Auto) Sodium 127 L Potassium 4.1 Chloride 93 L Carbon Dioxide 28 Anion Gap 6 BUN 19 Creatinine 1.02 Est Cr Clr Drug Dosing 54.9 eGFR 61.82 BUN/Creatinine Ratio 18.6 Glucose 129 H POC Glucose 105 H 125 H Calcium 8.2 L C-Reactive Protein 12/26/24 12/26/24 16:55 15:09 WBC RBC Hgb Hct MCV MCH MCHC RDW Std Deviation RDW Coeff of [place] Plt Count MPV Immature Gran % (Auto) Neut % (Auto) Lymph % (Auto) [place] % (Auto) Eos % (Auto) Baso % (Auto) Neut # (Auto) Lymph # (Auto) [place] # (Auto) Eos # (Auto) Baso # (Auto) Immature Gran # (Auto) Sodium 121 L Potassium Chloride Carbon Dioxide Anion Gap BUN Creatinine Est Cr Clr Drug Dosing eGFR BUN/Creatinine Ratio Glucose POC Glucose 116 H Calcium C-Reactive Protein PG Care Time/CCT Total # of Minutes Spent Total Time Spent with Patient: Total time spent is greater than 50% in coordination of care (as documented) at patient's floor/unit and/or counseling patient: Coding Level of Care Code 22210 SUB INP/OBS CARE MIN Diagnoses Sepsis A41.9 Immunocompromised D84.9 Complicated UTI (urinary tract infection) N39.0 Falls W19.XXXA Encounter type: initial encounter Closed right clavicular fracture S42.001A Encounter type: initial encounter Hematoma of right parietal scalp S00.03XA Encounter type: initial encounter Right leg pain M79.604 (4) Falls Encounter type: initial encounter Qualified Code(s): W19.XXXA - Unspecified fall, initial encounter (5) Closed right clavicular fracture Encounter type: initial encounter (6) Hematoma of right parietal scalp Encounter type: initial encounter Qualified Code(s): S00.03XA - Contusion of scalp, initial encounter
[2024-12-27] MEDS: DICLOFENAC SOD 1% GEL 100 GM TUBE EXT PRN (14:06)
[2024-12-28 06:25] LABS: Hematocrit (blood only) 31.0 % (37.0-47.0); Hemoglobin 10.2 g/dl (12.0-16.0); Immature Granulocytes # (auto) 0.01 K/uL (0.01-0.20); Immature Granulocytes % (auto) 0.2 %; Mean Corpuscular Hemoglobin 30.3 pg (25.0-34.0); Mean Corpuscular Volume 92.0 fL (80.0-100.0); Platelet Count 263 K/uL (130-400); RDW Standard Deviation 42.0 fL (36.4-46.3); Red Blood Count 3.37 M/uL (4.20-5.40); White Blood Count 4.81 K/ul (4.8-10.8)
[2024-12-28 06:49] LABS: Alanine Aminotransferase 10 U/L (7-52); Albumin Globulin Ratio 1.0 (0.9-2); Albumin Level 3.0 gm/dl (3.4-5.0); Alkaline Phosphatase 71 U/L (34-104); Anion Gap 5 (3-11); Bilirubin,Total 0.2 mg/dl (0.2-1.0); Blood Urea Nitrogen 26 mg/dl (6-23); Calcium 8.6 mg/dl (8.6-10.3); Carbon Dioxide 28 mmol/L (21-32); Chloride 106 mmol/L (98-107); Creatinine Clr Calc Pharmacy 66.9 ml/min; Globulin 3.1 gm/dl (2.5-4.0); Glucose 86 mg/dl (70-99(Fasting)); Magnesium 2.5 mg/dl (1.7-2.4); Potassium 4.4 mmol/L (3.5-5.1); Sodium 139 mmol/L (136-145); Total Protein 6.1 gm/dl (6.0-8.3)
[2024-12-28 12:52] LABS: HIV 1 RNA PCR Copies/ML NOT DETECTED copies/mL (NOT DETECTED)
--- NOTE | 2024-12-28 14:10 | Hospitalist Progress Note ---
Date of Service December 28, 2024 Assessment & Plan (1) Sepsis: (2) Immunocompromised: (3) Complicated UTI (urinary tract infection): (4) Falls: (5) Closed right clavicular fracture: (6) Hematoma of right parietal scalp: (7) Right leg pain: Plan Patient is a 64-year-old female with a past medical history of insulin-dependent type 2 DM, DVT, HTN, HIV, superior pubic catheter, MRSA, left AKA, TINO. Patient presented via EMS from [facility] due to a fall 2 weeks ago resulting in 10 out of 10 persistent leg pain. Workup in the ED revealed acute right clavicle fracture, chronic T12 and C3 fractures, otherwise diagnostic imaging negative for any acute traumatic changes. Patient was found to have a UTI and concern for sepsis with lactate 2.9, tachycardia, hypotension. She does have a history of multiple resistant bacteria and is being admitted for IV fluids and IV antibi otics. #UTI/sepsis/immunocompromised status - catheter associated, HIV infection. Tachycardic (HR 101), hypotensive (BP 90/75), lactate 2.9 -> 1.5, no leukocytosis, procal negative. UA appears positive for infection. - ABX coverage with daptomycin and meropenem initally now with merpenem - history of positive cultures for Proteus mirabilis (resistant to ampicillin, quinolones, Bactrim), E. coli (resistant to Bactrim), pansensitive Pseudomonas, Klebsiella pneumoniae (intermediate to nitro) - noted history of MRSA on EMR however no previous cultures recorded endors ing this - will provide MRSA coverage until culture resulted - hx of red many syndrome with Vanco - allergy to cephalosporins - follow blood and urine cultures - Trend CBC and BMP, stable to improving at this time - urine culture with 5000 gram-negative bacilli, - 7 days of empiric therapy will end on 12/30, will continue to trend CRP and stop meropenem at that time #psychogenic polydipsia #hyponatremia - see nursing assessment, new diagnosis, uncontrolled, likely severe - 1500 cc fluid restriction placed for the interim. Low-dose salt supplementation in the interim - adherent with fluid restriction, still quite a bit a urine output per nursing staff, serum sodium is normalized as of today. Will continue to check for trend #fall/right clavicle fracture/right scalp hematoma/right leg pain - fall from wheelchair to ground, head strike on ground, no loss of consciousness. Diagnostic imaging revealed acute right distal clavicle fracture, right scalp hematoma. Otherwise diagnostic imaging negative for any acute traumatic changes. H&H stable. Defer PT/OT consults as patient is unable to bear weight at baseline and is wheelchair-bound - lidoderm patch to clavicle pain control with Tylenol prn, Toradol prn, and morphine 2/4 (for pain not relieved by #1 and 2) - sling ordered - refer to ortho in outpatient setting for clavicle fx - pain adequately managed with current regimen #back pain/chronic fractures - Acute on chronic back pain. Diagnostic imaging revealed subacute to chronic 30-40% T12 anterior wedge compression fracture and chronic C3 fracture. Pain control as above - Note that there is no orthospine coverage over the weekend however Dr. Nguyen will be here Wednesday could consider consult if patient is still admitted at that time #HTNhypotensive with sepsis above. Holding propranolol and losartan #HIVimmunocompromise status, patient stated she has been compliant on her home medications. Continue Tivicay and descovy. - there has been significant difficulty getting her outpatient prescription from medications from [facility]. Will cue her family or care plan to see if we can have a bridging prescription for her while she is here #Type II DMSSI ordered. Continue home Lantus to 15 units every morning. Hold metformin. #HTNhold statin with daptomycin use #Mental healthcontinue buspirone, clonazepam, duloxetine, risperidone VTE ppx: SCD right leg, defer chemical with scalp hematoma - at baseline ambulation, hx of DVT Dispo: PCU Admission and Anticipated Discharge Date Admission Date: December 23, 2024 Subjective doing okay this morning. Still some pain in her knee on the right side but it is well-managed with current pain regimen. No fevers chills or generalized signs of illness. No new complaints or concerns per patient. She is doing well with fluid restriction. We discussed her blood electrolytes and the stability of those after cutting back on the amount of water she was drinking. She does not recall having issues with this in the past. Otherwise there is no new complaints or concerns per nursing staff. Patient reports no problem with bowel or bladder function. No problem with oral intake. We are having some difficulty getting her outpatient medications for HIV prophylaxis. Will queue pharmacy to see if we can have a repeat or Prescription filled through her current plan. Physical Exam Physical Exam: The patient is awake, alert and oriented 3, well developed and well nourished, in no acute distress. Non-toxic appearing. HEENT- EOMI, mucous membranes dry. Hearing grossly intact. Ecchymosis to right scalp. Heart-normal S1 and S2. 3/6 holosystolic ESTEFANI throughout the precordium, rubs or gallops. Lungs-clear bilaterally, no respiratory distress, no accessory muscle use. Abdomen-normal bowel sounds and soft. No ascites noted. Non-tender. Extremities- no clubbing, cyanosis, or edema. Left AKA. Psychiatric-normal affect. Results & Data Results & Data Vital Signs (Past 12 Hours) Vital Signs Temp Pulse Resp BP Pulse Ox O2 Del Method 12/28/24 11:31 37.2 C 85 18 110/72 96 Room Air 12/28/24 07:24 36.5 C 77 18 109/71 96 Room Air 12/28/24 03:19 36.7 C 77 16 133/84 96 Room Air Laboratory Results 12/28/24 12/28/24 12/28/24 12:05 08:00 05:33 WBC 4.81 RBC 3.37 L Hgb 10.2 L Hct 31.0 L MCV 92.0 MCH 30.3 MCHC 32.9 RDW Std Deviation 42.0 RDW Coeff of [place] 12.6 Plt Count 263 MPV 8.9 L Immature Gran % (Auto) 0.2 Neut % (Auto) 46.5 Lymph % (Auto) 41.6 [place] % (Auto) 6.7 Eos % (Auto) 4.2 Baso % (Auto) 0.8 Neut # (Auto) 2.24 Lymph # (Auto) 2.00 [place] # (Auto) 0.32 Eos # (Auto) 0.20 Baso # (Auto) 0.04 Immature Gran # (Auto) 0.01 Sodium 139 Potassium 4.4 Chloride 106 Carbon Dioxide 28 Anion Gap 5 BUN 26 H Creatinine 0.83 Est Cr Clr Drug Dosing 66.9 eGFR 79.16 BUN/Creatinine Ratio 31.3 H Glucose 86 POC Glucose 131 H 102 H Calcium 8.6 Magnesium 2.5 H Total Bilirubin 0.2 AST 18 ALT 10 Alkaline Phosphatase 71 C-Reactive Protein < 0.50 Total Protein 6.1 Albumin 3.0 L Globulin 3.1 Albumin/Globulin Ratio 1.0 Procalcitonin < 0.02 HIV-1 RNA copies/mL HIV-1 RNA logcopies/mL 12/27/24 12/27/24 12/25/24 21:03 17:01 05:49 WBC RBC Hgb Hct MCV MCH MCHC RDW Std Deviation RDW Coeff of [place] Plt Count MPV Immature Gran % (Auto) Neut % (Auto) Lymph % (Auto) [place] % (Auto) Eos % (Auto) Baso % (Auto) Neut # (Auto) Lymph # (Auto) [place] # (Auto) Eos # (Auto) Baso # (Auto) Immature Gran # (Auto) Sodium 135 L Potassium Chloride Carbon Dioxide Anion Gap BUN Creatinine Est Cr Clr Drug Dosing eGFR BUN/Creatinine Ratio Glucose POC Glucose 106 H 109 H Calcium Magnesium Total Bilirubin AST ALT Alkaline Phosphatase C-Reactive Protein Total Protein Albumin Globulin Albumin/Globulin Ratio Procalcitonin HIV-1 RNA copies/mL NOT DETECTED HIV-1 RNA logcopies/mL NOT DETECTED PG Care Time/CCT Total # of Minutes Spent Total Time Spent with Patient: Total time spent is greater than 50% in coordination of care (as documented) at patient's floor/unit and/or counseling patient: Coding Level of Care Code 11006 SUB INP/OBS CARE 235MIN Diagnoses Sepsis A41.9 Immunocompromised D84.9 Complicated UTI (urinary tract infection) N39.0 Falls W19.XXXA Encounter type: initial encounter Closed right clavicular fracture S42.001A Encounter type: initial encounter Hematoma of right parietal scalp S00.03XA Encounter type: initial encounter Right leg pain M79.604 (4) Falls Encounter type: initial encounter Qualified Code(s): W19.XXXA - Unspecified fall, initial encounter (5) Closed right clavicular fracture Encounter type: initial encounter (6) Hematoma of right parietal scalp Encounter type: initial encounter Qualified Code(s): S00.03XA - Contusion of scalp, initial encounter
[2024-12-29 06:40] LABS: Hematocrit (blood only) 30.5 % (37.0-47.0); Hemoglobin 9.9 g/dl (12.0-16.0); Immature Granulocytes # (auto) 0.01 K/uL (0.01-0.20); Immature Granulocytes % (auto) 0.2 %; Mean Corpuscular Hemoglobin 30.1 pg (25.0-34.0); Mean Corpuscular Volume 92.7 fL (80.0-100.0); Platelet Count 270 K/uL (130-400); RDW Standard Deviation 43.4 fL (36.4-46.3); Red Blood Count 3.29 M/uL (4.20-5.40); White Blood Count 4.74 K/ul (4.8-10.8)
[2024-12-29 06:56] LABS: Alanine Aminotransferase 12 U/L (7-52); Albumin Globulin Ratio 0.9 (0.9-2); Albumin Level 3.1 gm/dl (3.4-5.0); Alkaline Phosphatase 75 U/L (34-104); Anion Gap 6 (3-11); Bilirubin,Total 0.2 mg/dl (0.2-1.0); Blood Urea Nitrogen 25 mg/dl (6-23); Calcium 8.5 mg/dl (8.6-10.3); Carbon Dioxide 27 mmol/L (21-32); Chloride 106 mmol/L (98-107); Creatinine Clr Calc Pharmacy 69.8 ml/min; Globulin 3.3 gm/dl (2.5-4.0); Glucose 98 mg/dl (70-99(Fasting)); Magnesium 2.1 mg/dl (1.7-2.4); Potassium 4.2 mmol/L (3.5-5.1); Sodium 139 mmol/L (136-145); Total Protein 6.4 gm/dl (6.0-8.3)
[2024-12-29 07:40] VITALS: BP 146/85; RESP 22; TEMP 98.4; O2SAT 94
--- NOTE | 2024-12-29 11:12 | Discharge Summary ---
<Statement entered by Maxi Irby MD - 12/29/24 12:22> I saw and evaluated the patient above. Agree with the stated assessment and plan as written. Discharge Summary Date of Service December 29, 2024 Principal Dx & Hospital Course #1 = Principal Diagnosis (1) Sepsis: (2) Immunocompromised: (3) Complicated UTI (urinary tract infection): (4) Falls: (5) Closed right clavicular fracture: (6) Hematoma of right parietal scalp: (7) Right leg pain: Plan Patient is a 64-year-old female with a past medical history of insulin-dependent type 2 DM, DVT, HTN, HIV, superior pubic catheter, MRSA, left AKA, TINO. Patient presented via EMS from [facility] due to a fall 2 weeks ago resulting in 10 out of 10 persistent leg pain. Workup in the ED revealed acute right clavicle fracture, chronic T12 and C3 fractures, otherwise diagnostic imaging negative for any acute traumatic changes. Patient was found to have a UTI and concern for sepsis with lactate 2.9, tachycardia, hypotension. She does have a history of multiple resistant bacteria and is being admitted for IV fluids and IV antibiotics. #UTI/sepsis/immunocompromised status - catheter associated, HIV infection. Tachycardic (HR 101), hypotensive (BP 90/75), lactate 2.9 -> 1.5, no leukocytosis, procal negative. UA appears positive for infection. - ABX coverage with daptomycin and meropenem initally now with merpenem - history of positive cultures for Proteus mirabilis (resistant to ampicillin, quinolones, Bactrim), E. coli (resistant to Bactrim), pansensitive Pseudomonas, Klebsiella pneumoniae (intermediate to nitro) - noted history of MRSA on EMR however no previous cultures recorded endorsing this - will provide MRSA coverage until culture resulted - hx of red many syndrome with Vanco - allergy to cephalosporins - follow blood and urine cultures - Trend CBC and BMP, stable to improving at this time - urine culture with 5000 gram-negative bacilli, - 7 days of empiric therapy is completed on 12/29 #psychogenic polydipsia #hyponatremia - see nursing assessment, new diagnosis, uncontrolled, likely severe - 1500 cc fluid restriction placed for the interim. Low-dose salt supplementation in the interim - adherent with fluid restriction, still quite a bit a urine output per nursing staff, serum sodium is normalized as of today. Will continue to check for trend #fall/right clavicle fracture/right scalp hematoma/right leg pain - fall from wheelchair to ground, head strike on ground, no loss of consciousness. Diagnostic imaging revealed acute right distal clavicle fracture, right scalp hematoma. Otherwise diagnostic imaging negative for any acute traumatic changes. H&H stable. Defer PT/OT consults as patient is unable to bear weight at baseline and is wheelchair-bound - lidoderm patch to clavicle pain control with Tylenol prn, Toradol prn, and morphine 2/4 (for pain not relieved by #1 and 2) - sling ordered - refer to ortho in outpatient setting for clavicle fx - pain adequately managed with current regimen #back pain/chronic fractures - Acute on chronic back pain. Diagnostic imaging revealed subacute to chronic 30-40% T12 anterior wedge compression fracture and chronic C3 fracture. Pain control as above - Note that there is no orthospine coverage over the weekend however Dr. Nguyen will be here Wednesday could consider consult if patient is still admitted at that time #HTNhypotensive with sepsis above. Holding propranolol and losartan #HIVimmunocompromise status, patient stated she has been compliant on her home medications. Continue Tivicay and descovy. - there has been significant difficulty getting her outpatient prescription from medications from [facility]. Will cue her family or care plan to see if we can have a bridging prescription for her while she is here #Type II DMSSI ordered. Continue home Lantus to 15 units every morning. Hold metformin. #HTNhold statin with daptomycin use #Mental healthcontinue buspirone, clonazepam, duloxetine, risperidone She is medically and hemodynamically stable for discharge back to [facility] where she is a bedhold. Will plan for discharge back to [facility] today. Plan d/w Dr. Irby who is in agreement with aforementioned. Notes For Next Care Provider Needs orthopedic f/u for R clavicle fracture. Keep RUE in sling until seen by ortho. Admission HPI Per Admitting Provider Patient is a 64-year-old female with a past medical history of insulin-dependent type 2 DM, DVT, HTN, HIV, superior pubic catheter, MRSA, left AKA, TINO. Patient presented via EMS from [facility] due to a fall 2 weeks ago resulting in 10 out of 10 persistent leg pain. Workup in the ED revealed acute right clavicle fracture, chronic T12 and C3 fractures, otherwise diagnostic imaging negative for any acute traumatic changes. Patient was found to have a UTI and concern for sepsis with lactate 2.9, tachycardia, hypotension. She does have a history of multiple resistant bacteria and is being admitted for IV fluids and IV antibiotics. Patient seen at bedside. She stated she was sliding onto her wheelchair when she lost her balance and fell onto the floor onto her right side striking her head on the floor. She denies any loss of consciousness however did feel fuzzy afterwards. She does have a right scalp hematoma. She also endorses intermittent back pain and dyspnea since the fall. As well as the 10 out of 10 right leg pain. Pain is currently well-controlled after fentanyl 50 mcg IV in the ED. She is unable to bear weight at baseline and uses a wheelchair at all times and is sliding board for transport as she is unable to bear any weight on her right leg due to knee pain. She stated she has a history of frequent UTIs and previously had dysuria with them however had the suprapubic catheter placed several months ago. She denies any changes to her urinary habits. She is due for her evening medications, she states she uses sliding scale insulin 15 or 25 units every morning long-acting insulin. She wishes to be DNR/DNI. Note that patient was previously seen by [facility] medicine team however is coming to [facility] medicine team due to insurance. Discharge Exam GENERAL: 64 yo chronically ill appearing middle aged F. No distress. LUNGS: Clear to auscultation bilaterally. No W/R/R. CARDIOVASCULAR: Regular rate and rhythm +murmur EXTREMITIES: No edema. 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 NEUROLOGIC: A&O x3. PSYCHIATRIC: Cooperative. tearful. SKIN: Warm, dry, intact. No rashes or lesions. Discharge Plan Discharge Items Patient Disposition: Transfer Custodial Fac Reason For Visit: SEPSIS, UTI, R CLAVICLE FX, FALL Discharge Diagnosis: Urinary tract infection Fall with clavicle fracture Condition on Discharge: Fair Activity: Resume your previous activity Non-emergency contact: Primary Care Provider Call non-emergency contact if: you have any medication questions Follow-up/Referrals: [facility] [Primary Care Provider] - Diet: Regular Addtl Attending Provider Instructions: You were hospitalized for a urinary tract infection for which you were treated with IV antibiotics. Additionally, you were found to have a right clavicle fracture and your right arm was placed in a sling. At this time, you have completed your IV antibiotics for the urinary tract infection. You will need to be seen in follow up by orthopedics regarding the clavicle fracture. You can continue to utilize Tylenol and/or ibuprofen for pain. You will need to be seen by your primary care physician within 24-48 hrs of returning to [facility]. Call 911 or go to the ER in the event of an emergency. Pending Studies at Discharge: No Stand-Alone Forms: My [facility] Skilled Items Patient informed of condition?: No DNR: No Discharge Level of Care: Skilled Communicable Disease: No Discharge Prognosis: Stable Lines: None Urinary Catheter: No Medications and DC Order Prescriptions: Continued Tivicay 50 mg tablet 50 mg PO HS Descovy 200-25 mg tablet 1 tab PO HS cholecalciferol (vitamin D3) 25 mcg (1,000 unit) Tablet 25 mcg PO QAM lidocaine 4 % Adhesive Patch,Medicated 1 patch TOPICAL QAM Rx Instructions: REMOVE AT HS...apply to right knee loperamide 2 mg Capsule 2 mg PO Q6H PRN (Reason: loose stools) Rx Instructions: ONE CAPSULE EVERY 6 HRS, NEEDED,FOR LOOSE STOOL. atorvastatin 20 mg tablet 20 mg PO HS buspirone 10 mg tablet 20 mg PO TID clonazepam 0.5 mg tablet 0.5 mg PO TID ondansetron HCl 4 mg tablet 4 mg PO Q6 PRN (Reason: nausea or vomiting) diclofenac sodium [Voltaren] 1 % Gel 4 g TOPICAL Q6 PRN (Reason: bilateral knee pain) Rx Instructions: 4 grams to each knee insulin glargine [Lantus U-100 Insulin] 100 unit/mL Solution 15 unit SUBCUT QAM duloxetine 30 mg capsule,delayed release(DR/EC) 30 mg PO BID losartan 25 mg tablet 25 mg PO QAM magnesium oxide 400 mg magnesium Tablet 400 mg PO AMHS propranolol 10 mg tablet 10 mg PO BID potassium chloride 20 mEq tablet,ER particles/crystals 20 meq PO QAM metformin 500 mg tablet 500 mg PO BID famotidine 20 mg tablet 20 mg PO HS Vitamin-Folic Acid 1 Mg 1 tab PO QAM cyanocobalamin (vitamin B-12) [Vitamin B-12] 500 mcg Tablet 500 mcg PO QAM ascorbic acid (vitamin C) [Vitamin C] 500 mg Tablet 500 mg PO BID risperidone 0.25 mg tablet 0.25 mg PO .IN THE AFTERNOON risperidone 0.25 mg tablet 0.75 mg PO DAILY acetaminophen 325 mg Tablet 650 mg PO Q6 MDD 3g PRN (Reason: pain 1-4) acetaminophen [Tylenol] 325 mg Tablet 650 mg PO Q6 MDD 3g PRN (Reason: temp>100) sodium chloride 1 gram Tablet 1,000 mg PO AMHS triamcinolone acetonide 0.1 % Cream 1 applic TOPICAL BID Rx Instructions: apply to right knee every day and evening shift for itching/inflamed skin. apply a thin film ,wash hands after use. nystatin 100,000 unit/gram Ointment 1 applic TOPICAL BID Rx Instructions: apply to jordan area every day and evening shift menthol-zinc oxide 0.44-20 % Ointment 1 ea TOPICAL QS Rx Instructions: apply to buttocks rash oxycodone 5 mg tablet 5 mg PO Q6 PRN (Reason: moderate or severe pain) acetaminophen 500 mg Tablet 1,000 mg PO AMHS MDD 3g carboxymethylcellulose sodium 1 % Drops 1 drp OPHTHALMIC (EYE) . NEEDED PRN (Reason: Dry Eyes) Menthol Mouth/Throat 7mg 1 federico PO .EVERY 1 HOUR PRN (Reason: sore throat or cough) Rx Instructions: may keep at bedside Discharge Orders: Discharge Order (Routine); Ordered 12/29/24 Ordered By: Sarah Daniels Admission Data Admit Date/Time: 12/23/24 23:45 Attending Provider: Wai Mejia Admit Provider: Erik Byrne [facility] Other Providers: Erik Byrne Hospital Stay Data Consultations 12/23/24 22:40 ED Decision to Admit Stat Diagnostic Imagining Performed 12/23/24 19:47 CT abd pelvis IV con only Stat CT cervical spine wo con Stat CT chest diagnostic w con Stat CT head/brain wo con Stat CT lumbar spine w con Stat 12/23/24 20:18 CT foot RT w con Stat Pending Results Patient Have Any Pending Studies at Discharge: No Discharge Instructions Given to Patient (Per Discharging Provider) You were hospitalized for a urinary tract infection for which you were treated with IV antibiotics. Additionally, you were found to have a right clavicle fracture and your right arm was placed in a sling. At this time, you have completed your IV antibiotics for the urinary tract infection. You will need to be seen in follow up by orthopedics regarding the clavicle fracture. You can continue to utilize Tylenol and/or ibuprofen for pain. You will need to be seen by your primary care physician within 24-48 hrs of returning to [facility]. Call 911 or go to the ER in the event of an emergency. Total Time Total Time Spent Total Time Spent (In Minutes): 40 minutes Coding Level of Care Code 15655 INP/OBS DISCH >30 MIN Diagnoses Sepsis A41.9 Immunocompromised D84.9 Complicated UTI (urinary tract infection) N39.0 Falls W19.XXXA Encounter type: initial encounter Closed right clavicular fracture S42.001A Encounter type: initial encounter Hematoma of right parietal scalp S00.03XA Encounter type: initial encounter Right leg pain M79.604
[2024-12-29 15:35] VITALS: PULSE 101
== END 2024-12-29 15:36 | DRG 698 ==
LOC: ED 19:22 → SUATTDRO 23:45 → INTOOBSV 23:45 → 4W 23:45